=== PATIENT | female | born 1945 | race Caucasian/White ===

== ENCOUNTER 2021-09-03 09:28 | Emergency (ER) | payer OTHER, SELFPAY ==
--- NOTE | 2021-09-03 09:38 | ED.ANIMALBIT ---
HPI - Animal Bite General Chief Complaint: Animal Bite Stated Complaint: dog bite Time Seen by Provider: 09/03/21 09:38 Source: patient Mode of arrival: ambulatory Limitations: no limitations History of Present Illness HPI narrative: 76-year-old female presents with healing dog bites to bilateral hands. Patient has a new poodle puppy. States yesterday was biting on her hands and door open skin. Patient cleaned wounds and arrived with Band-Aids in place. No bleeding noted. No signs of infection. Range of motion and distal neurovascular intact. All systems reviewed and negative except as noted above. Related Data Home Medications Medication Instructions Recorded Confirmed atorvastatin 10 mg tablet 1 tablet PO DAILY 09/03/21 09/03/21 donepezil 5 mg tablet 1 tablet PO DAILY 09/03/21 09/03/21 ibandronate 150 mg tablet 1 tablet PO DAILY 09/03/21 09/03/21 metoprolol succinate 25 mg 1 tablet PO DAILY 09/03/21 09/03/21 tablet,extended release 24 hr Allergies Allergy/AdvReac Type Severity Reaction Status Date / Time celecoxib Allergy Severe HIVES Verified 09/03/21 09:42 POISON HARMEET Allergy Mild Rash Uncoded 09/03/21 09:42 Review of Systems Review of Systems: CONSTITUTIONAL: Denies fever, chills, or sweats. EYES: Denies visual changes, redness, or discharge. ENT: Denies rhinorrhea, congestion, sore throat, or otalgia. CARDIOVASCULAR: Denies chest pain, palpitations, or edema. RESPIRATORY: Denies cough or dyspnea. GASTROINTESTINAL: Denies abdominal pain, nausea, vomiting, or diarrhea. GENITOURINARY: Denies dysuria or hematuria. SKIN: Reports lacerations to both hands from dog bite. MUSCULOSKELETAL: Denies back pain, joint pain, or myalgia. NEUROLOGIC: Denies headache, numbness, or weakness. PSYCHIATRIC: Denies anxiety or depression. All other systems reviewed are negative, except as documented in HPI. PMFSH Comments At time of signature, agree with nursing past medical, surgical, social and family history. There is no relevant family history pertinent to the presenting complaint. Exam Narrative: GENERAL: This is a well-nourished, well-developed patient, in no apparent distress. HEAD: normocephalic, atraumatic. EYES: PERRL. Sclera clear/white. Vision is grossly intact. EARS: External ears normal NOSE: External nose normal NECK: Neck supple, non-tender without lymphadenopathy, masses or thyromegaly. CARDIOVASCULAR: Regular rate and rhythm without murmurs, gallops, or rubs. RESPIRATORY: Clear to auscultation. Breath sounds equal bilaterally. No wheezes, rales, or rhonchi. SKIN: warm, Dry, intact with no suspicious lesions or rash, good texture and turgor. 3 superficial lacerations to posterior aspect right hand. 2 superficial lacerations to left hand. Healing well. No signs of infection. NEURO: awake, alert, and oriented to person, place and time. There were no obvious focal neurologic abnormalities. EXTREMITIES: No joint tenderness, effusion, or edema noted. Course Course Level of Care: Express Care Visit Vital Signs Vital signs: Reviewed MDM - Animal Bite MDM Narrative Medical decision making narrative: Patient is aware of diagnosis, understands and agrees to treatment plan. Anticipatory guidance given. Patient agrees to follow-up as directed and is aware of reasons to seek care at the emergency department. Portions of this record may have been created with voice recognition software Differential Diagnosis Differential diagnosis: Likely dog bite Discharge Plan Discharge Clinical Impression: Dog bite of right hand without complication, Dog bite of left hand without complication Patient Disposition: Home, Self-Care Condition: Stable Instructions: Antibiotic Form, Animal Bite (ED) Additional Instructions: Take antibiotics as prescribed to prevent wound infection. Continue to wash wounds with soap and water. Pat dry. If you have redness, swelling, drainage, increasing pain follow-up w
[2021-09-03 09:40] VITALS: BP 153/83; PULSE 68; RESP 18; TEMP 36.6; O2SAT 100
[2021-09-03] MEDS: TETANUS/DIPHTHERIA TOXOIDS ADSORB 0.5 ML VIAL (*BKC) IM (10:00)
== END 2021-09-03 10:17 | disposition home or self-care (01) ==
PROVIDERS: Emergency Provider Nurse Practitioner Family; PCP Family Medicine
DX: S61.412A Laceration without foreign body of left hand, initial encounter (principal); S61.411A Laceration without foreign body of right hand, initial encounter; W54.0XXA Bitten by dog, initial encounter; Z23 Encounter for immunization; G30.9 Alzheimer's disease, unspecified; F02.80 Dementia in other diseases classified elsewhere, unspecified severity, without behavioral disturbance, psychotic disturbance, mood disturbance, and anxiety; E78.00 Pure hypercholesterolemia, unspecified; I10 Essential (primary) hypertension; M81.0 Age-related osteoporosis without current pathological fracture
CPT/HCPCS: 90471; 90714; 99213; G0463

== ENCOUNTER 2022-05-27 18:35 | Emergency (ER) | payer OTHER, SELFPAY ==
--- NOTE | ~2022-05-27 | CT_ITS ---
EXAMINATION: CT brain wo con DATE: 05/27/2022 19:38 INDICATION: fall . TECHNIQUE: Computed tomography (CT) of the head was performed with intravenous contrast. The mA was a djusted according to patient size. Iterative reconstruction technique was employed. The dose-length p roduct was 605.33 mGy-cm. COMPARISON: None. FINDINGS: No acute intracranial hemorrhage or extra-axial fluid collection. No hydrocephalus, mass, or herniation. No acute ischemic infarct. Unremarkable dural venous sinus attenuation. No acute osseous abnormality. Mild ethmoid mucosal thickening, the remaining aerated spaces are clear. Moderate atrophy and mild chronic white matter change. Small infarct/lacunar infarct in the right ins celso. Chronic bilateral basal ganglia lacunar infarcts. Atherosclerotic intracranial calcification. Bi lateral lens replacements. IMPRESSION: No acute intracranial process. Reviewed, dictated and finalized at location K.
--- NOTE | ~2022-05-27 | XR_ITS ---
EXAMINATION: XR chest 1V portable Exam Date/Time: 05/27/2022 21:20 CDT HISTORY: syncope Comparison: 10/06/2013; CT chest 08/09/2014. RESULT: Lines, tubes, and devices: None. Lungs and pleura: Biapical pleural scarring. Senescent and emphysematous change. Cardiomediastinal silhouette: Stable. Other: No acute osseous or upper abdominal finding. IMPRESSION: No acute cardiopulmonary process. Reviewed, dictated and finalized at location K.
[2022-05-27 19:11] VITALS: BP 145/82; PULSE 66; RESP 18; TEMP 36.7; O2SAT 98
--- NOTE | 2022-05-27 19:22 | ECG_ITS ---
Measurements Intervals [place] Rate: 67 P: 47 NV: 179 QRS: -15 QRSD: 118 T: 58 QT: 425 QTc: 449 Interpretive Statements SINUS RHYTHM INCOMPLETE RIGHT BUNDLE BRANCH BLOCK CANNOT RULE OUT SEPTAL INFARCT, AGE INDETERMINATE BASELINE ARTIFACT- I, II, III, AVR, AVL, AVF, V1-V2 ABNORMAL ECG NO PREVIOUS ECG AVAILABLE FOR COMPARISON Electronically Signed On 05-28-2022 6:24:51 CDT by Myke Palomino D.O.
[2022-05-27 21:30] LABS: Basophils Absolute Auto 0.1 K/mm3 (0.0-0.1); Basophils Percent Auto 1.3 % (0.2-1.2); Eosinophils Absolute Auto 0.2 K/mm3 (0-0.3); Eosinophils Percent Auto 2.9 % (0-4.4); Hematocrit 38.2 % (37.0-47.0); Hemoglobin 12.3 g/dL (12.0-15.0); Immature Granulocyte Absolute 0.02 K/mm3 (0.00-0.031); Immature Granulocyte Percent A 0.2 % (0-0.5); Lymphocytes Absolute Auto 2.24 K/mm3 (0.9-3.2); Lymphocytes Percent Auto 26.9 % (18.3-44.2); Mean Corpuscular HGB Conc 32.2 g/dl (32-36); Mean Corpuscular Hemoglobin 32.8 pg (26-34); Mean Corpuscular Volume 101.9 fl (80-100); Mean Platelet Volume 8.5 fl (7.4-10.4); Monocytes Absolute Auto 0.9 K/mm3 (0.1-0.6); Monocytes Percent Auto 11.2 % (2.6-8.5); Neutrophils Absolute Auto 4.8 K/mm3 (1.3-6.7); Neutrophils Percent Auto 57.5 % (45.5-73.1); Platelet Count Result 286 k/mm3 (150-375); Red Blood Count 3.75 M/mm3 (4.2-5.4); Red Cell Distribution Width 13.8 % (11.5-14.5); White Blood Count 8.3 K/mm3 (4.5-10.0)
[2022-05-27 21:41] LABS: Alanine Aminotransferase 26 U/L (6-35); Albumin Level 4.1 g/dL (3.5-5.1); Alkaline Phosphatase 53 U/L (38-126); Anion Gap 8 mmol/L (8-16); Aspartate Amino Transferase 34 U/L (14-36); Bilirubin,Total 0.5 mg/dL (0.2-1.3); Blood Urea Nitrogen 15 mg/dL (7-17); Carbon Dioxide 28 mmol/L (22-30); Chloride 105 mmol/L (98-107); Estimated CRCL calculation 43 ml/min; Estimated Glomerular Filt Rate > 60; Glucose 95 mg/dL (65-110); Magnesium 2.1 mg/dL (1.6-2.3); Potassium 4.3 mmol/L (3.4-5.0); Prothrombin Time 12.7 Seconds (11.1-14.7); Sodium 141 mmol/L (137-145)
[2022-05-27 21:49] LABS: NT Pro B Type Natriuretic Pept 380 pg/mL (19.9-100)
--- NOTE | 2022-05-27 21:57 | ED.DIZZY ---
HPI - Dizziness General Chief Complaint: Syncope Stated Complaint: fall/facial injury Time Seen by Provider: 05/27/22 21:04 Source: patient and family Mode of arrival: ambulatory Limitations: dementia History of Present Illness HPI Narrative: History is somewhat limited due to patient's dementia. She is presenting with family who is supplementing history. This is a 76-year-old female with PMH presents the ED with chief complaint of syncope occurring at 1730 this evening prior to arrival. Patient's family reports that she has had multiple episodes of fainting in the past. Reports that she had an ablation done 3 years ago and has been on metoprolol ever since. Reports no change in metoprolol dosing. Patient's family did witness this fall in the kitchen this evening. He states that she was walking to bring food to the sink and just collapsed. Patient tells me that she does not remember this event at all. She cannot give me any details about this incident. Family reports laceration to the left eyebrow. Patient denies any headache. Patient denies any chest pain or shortness of breath. Denies leg swelling, urinary symptoms. Related Data Home Medications Medication Instructions Recorded Confirmed atorvastatin 10 mg tablet 1 tablet PO DAILY 09/03/21 09/03/21 donepezil 5 mg tablet 1 tablet PO DAILY 09/03/21 09/03/21 ibandronate 150 mg tablet 1 tablet PO DAILY 09/03/21 09/03/21 metoprolol succinate 25 mg 1 tablet PO DAILY 09/03/21 09/03/21 tablet,extended release 24 hr Allergies Allergy/AdvReac Type Severity Reaction Status Date / Time celecoxib Allergy Severe HIVES Verified 09/03/21 09:42 POISON HARMEET Allergy Mild Rash Uncoded 09/03/21 09:42 Review of Systems Review of Systems: ROS unobtainable: Yes unobtainable due to medical condition (Dementia) Exam Narrative: GENERAL: Well-appearing, well-nourished, and in no acute distress. HEAD: Normocephalic, atraumatic. EYES: PERRLA and EOMI. ENT: Nares clear, no rhinorrhea or epistaxis. Mucous membranes moist. Oropharynx without tonsillar hypertrophy exudate or other lesions. NECK: Supple. No adenopathy or masses. CHEST: No respiratory distress. Clear to auscultation. No wheezes rales or rhonchi HEART: Regular rate and rhythm. No murmur heard. Normal peripheral pulses. ABDOMEN: Soft, nontender, nondistended, normal active bowel sounds. EXTREMITIES: MSK exam is largely benign. There is no tenderness throughout the extremities. No evidence of trauma. Normal range of motion. No edema. SKIN: There is a 2 cm skin laceration to the left eyebrow. Bleeding controlled. Warm, dry, no rash. No significant ecchymosis in the head or face. NEURO: Alert and oriented x3. No focal deficits. Cranial nerves II through XII intact. Coordination intact. Negative pronator drift. PSYCH: Normal mood and affect. Course Course Emergency Course: wells score 0 2230: Discussed case with Dr. Tidwell(hospitalist) who feels that this patient is safe to go home as long as she can ambulate on her own without presyncopal symptoms. Vital Signs Vital signs: Vital Signs Temperature 98.0 F 05/27/22 19:11 Pulse Rate 66 05/27/22 19:11 Respiratory Rate 18 05/27/22 19:11 Blood Pressure 145/82 H 05/27/22 19:11 Pulse Oximetry 98 05/27/22 19:11 Oxygen Delivery Room Air 05/27/22 19:11 Temperature 98 F 05/27/22 23:48 Pulse Rate 90 05/27/22 23:48 Respiratory Rate 18 05/27/22 23:48 Blood Pressure 131/69 05/27/22 23:48 Pulse Oximetry 99 05/27/22 23:48 Oxygen Delivery Room Air 05/27/22 19:11 Procedures Laceration Laceration 1: Date: 05/27/22 Time: 23:31 Site: face Side (If applicable): left (superior to eyebrow) Size (cm): 2 Description: linear Depth: simple, single layer Local Anesthetic: lidocaine 1% and with epi Amount of anesthesia used (mL): 3 Pre-repair: wound explored, irrigated extensiv
[2022-05-27] MEDS: SODIUM CHLORIDE 0.9% IV 1,000 ML 999 ML IV CONT (22:07)
[2022-05-27] MEDS: LIDO 1%/EPINEPHRINE 1:100,000 20 ML VIAL 10 ML INFILTRATE (22:08)
[2022-05-27 22:34] VITALS: BP 132/82; PULSE 70
[2022-05-27 22:35] VITALS: BP 154/68; PULSE 63
[2022-05-27 22:36] VITALS: BP 154/80; PULSE 77
[2022-05-27 23:31] LABS: Troponin I < 0.012 ng/mL (0.000-0.034)
[2022-05-27 23:48] VITALS: BP 131/69; PULSE 90; RESP 18; TEMP 36.6; O2SAT 99
== END 2022-05-27 23:48 | disposition home or self-care (01) ==
PROVIDERS: Emergency Provider Physician Assistant; PCP Family Medicine
DX: R55 Syncope and collapse (principal); S01.81XA Laceration without foreign body of other part of head, initial encounter; G30.9 Alzheimer's disease, unspecified; F02.80 Dementia in other diseases classified elsewhere, unspecified severity, without behavioral disturbance, psychotic disturbance, mood disturbance, and anxiety; W19.XXXA Unspecified fall, initial encounter
CPT/HCPCS: 12011; 36415; 70450; 71045; 80053; 83735; 83880; 84484; 85025; 85610; 93005; 96360; 96361; 99284; J7030

== ENCOUNTER 2023-08-09 15:46 | Emergency (ER) | payer OTHER, SELFPAY ==
--- NOTE | ~2023-08-09 | XR_ITS ---
EXAM: XR hip RT 2V w AP pelvis DATE: 08/09/2023 18:12 HISTORY: R buttock pain . COMPARISON: None available. FINDINGS: Decreased mineralization. No fracture or dislocation. No lytic or blastic lesion. Mild jamil ateral hip osteoarthritis. Lumbar degenerative disc disease. Surgical clips over the left inguinal re gion. No erosion or periosteal change. Arterial vascular calcifications. IMPRESSION: No acute osseous finding in the pelvis or right hip. Reviewed, dictated and finalized at location K.
--- NOTE | ~2023-08-09 | CT_ITS ---
EXAMINATION: CT brain wo con DATE: 08/09/2023 16:46 INDICATION: Head injury. TECHNIQUE: Computed tomography (CT) of the head was performed without intravenous contrast. The mA wa s adjusted according to patient size. Iterative reconstruction technique was employed. The dose-lengt h product was 681.00 mGy-cm. COMPARISON: Head CT 05/27/2022 FINDINGS: There are old infarcts in the bilateral basal ganglia. There is no intracranial hemorrhage, acute infarction, or abnormal intracranial mass lesion. The ventricles are normal in size. There are likely changes of ocular lens replacement surgeries. There is mucosal thickening in the paranasal si nuses. The mastoid air cells are normal. There are scalp skin hiren. IMPRESSION: 1. Old infarcts in the bilateral basal ganglia. Reviewed, dictated and finalized at location A.
--- NOTE | ~2023-08-09 | CT_ITS ---
EXAMINATION: CT cervical spine wo con DATE: 08/09/2023 16:46 INDICATION: Head injury. TECHNIQUE: Computed tomography (CT) of the cervical spine was performed without intravenous contrast. Automated exposure control and iterative reconstruction technique were employed. The dose-length pro duct was 106.90 mGy-cm. COMPARISON: None FINDINGS: There is scarring at the lung apices. There is 7 degrees levocurvature of cervical spine. T here is kyphosis of cervical spine. There is 2 mm anterolisthesis of C3 on C4. Vertebral body heights are normal. There is mildly decreased disc height at C2-C3, C3-C4, and C4-C5 and severely decreased disc height at C5-C6 and C6-C7. The following disc levels are specifically discussed: C2-C3: There is no uncovertebral joint osteoarthritis. There is severe right and mild left facet join t osteoarthritis. There is mild right neural foraminal stenosis. There is no central canal stenosis. C3-C4: There is no uncovertebral joint osteoarthritis. There is severe right and mild left facet join t osteoarthritis. There is mild right neural foraminal stenosis. There is no central canal stenosis. C4-C5: There is mild bilateral uncovertebral joint osteoarthritis. There is mild bilateral facet join t osteoarthritis. There is no neural foraminal stenosis. There is no central canal stenosis. C5-C6: There is moderate right and severe left uncovertebral joint osteoarthritis. There is severe ri ght and moderate left facet joint osteoarthritis. There is moderate left neural foraminal stenosis. T here is mild central canal stenosis. C6-C7: There is severe bilateral uncovertebral joint osteoarthritis. There is moderate bilateral face t joint osteoarthritis. There is mild bilateral neural foraminal stenosis. There is mild central baudilio l stenosis. C7-T1: There is mild left uncovertebral joint osteoarthritis. There is mild right and moderate left f acet joint osteoarthritis. There is mild left neural foraminal stenosis. There is no central canal st enosis. IMPRESSION: 1. No fracture. 2. Severe cervical spondylosis. Reviewed, dictated and finalized at location A.
--- NOTE | ~2023-08-09 | XR_ITS ---
EXAM: XR elbow RT min 3V DATE: 08/09/2023 18:12 HISTORY: fall OUT OF BED THIS MORNING . COMPARISON: None available. FINDINGS: Normal mineralization. No fracture or dislocation. No lytic or blastic lesion. Joint space s are maintained. No erosion or periosteal change. Soft tissues within normal limits. IMPRESSION: No acute osseous finding in the right elbow. Reviewed, dictated and finalized at location K.
[2023-08-09 15:51] VITALS: BP 143/72; PULSE 78; RESP 17; TEMP 36.5; O2SAT 99
--- NOTE | 2023-08-09 16:05 | ECG_ITS ---
[facility] [address] Test Date: 2023-08-09 Pat Name: Dottie Bryant Department: Room: Gender: F [employer] Technician: : [id number] Requested By: Theodora Padilla Order Number: [id number] Reading MD: Carlita Naik M.D. Measurements Intervals [place] Rate: 69 P: 62 ID: 159 QRS: -18 QRSD: 110 T: 81 QT: 394 QTc: 425 Interpretive Statements SINUS RHYTHM LEFT VENTRICULAR HYPERTROPHY AND ST-T CHANGE [VOLTAGE CRITERIA PLUS ST/T ABNORMALITY] No previous ECG available for comparison Electronically Signed On 08-10-2023 14:15:07 CDT by Carlita Naik M.D.
--- NOTE | 2023-08-09 16:16 | ED.HEATRA ---
HPI - Head Injury General Chief complaint: Head Injury <JORDI Claudio Last Filed: 08/09/23 16:19> Stated complaint: fell from bed, head injury <JORDI Claudio Last Filed: 08/09/23 16:19> Time Seen by Provider: 08/09/23 16:10 <JORDI Claudio Last Filed: 08/09/23 16:19> Focused HPI: patient is a 78-year-old female, with past medical history of dementia, who presents the ED with report of a fall/head injury. at bedside assisted in providing information. Reports he found patient fallen on the side of the bed with her head partially underneath of a wooden chest. Patient sustained a laceration to her posterior scalp. presented here for further evaluation. She is unsure how the fall occurred. She is unsure if she lost consciousness. Denies feeling dizzy or lightheaded currently. Denies vision changes. Denies chest pain, shortness breath, neck or back pain, numbness. Patient takes aspirin 81 mg daily. Tetanus up-to-date as of 2021. GENERAL: Elderly, frail, thin, and in no acute distress. HEAD: Normocephalic. Approx 7cm laceration to posterior scalp, mildly gaping, minimal active bleeding. NECK: No midline spinal tenderness. CHEST: Clear to auscultation. ?No respiratory distress. HEART: Regular rate and rhythm.? MSK: No tenderness throughout thoracic or lumbar midline spine. NEURO: ?Alert and oriented x3. Patient screened in triage and initial orders placed.? ?Additional care and disposition to be based upon?diagnostic testing and treatment. <JORDI Claudio Last Filed: 08/09/23 16:19> Source: patient and family <JORDI Claudio Last Filed: 08/09/23 16:19> Mode of arrival: ambulatory <JORDI Claudio Last Filed: 08/09/23 16:19> Limitations: dementia <JORDI Claudio Last Filed: 08/09/23 16:19> History of Present Illness HPI Narrative: Agree with the above triage note. Patient is also endorsing some elbow pain from the fall with overlying abrasions and pain to the right posterior buttock from the fall as well. She denies other injuries. Patient's at bedside states he was in the other room of the patient was taking a nap this afternoon when he heard a crash and found the patient fall and outside of the bed with her head underneath the wooden chest. The patient states she otherwise feels at her baseline. She denies chest pain or shortness of breath, cough or congestion, fever, abdominal pain, N/V/D, lightheadedness, headache, vision changes, focal numbness or weakness. at bedside states the patient is at her normal mental status which is A&O times 2-3. Nine hiren were placed to the scalp laceration in triage with good approximation. <Kanwal Zuleta PA-C - Last Filed: 08/09/23 18:42> Related Data Home medications: Home Medications Medication Instructions Recorded Confirmed atorvastatin 10 mg tablet 1 tablet PO DAILY 09/03/21 09/03/21 donepezil 5 mg tablet 1 tablet PO DAILY 09/03/21 09/03/21 ibandronate 150 mg tablet 1 tablet PO DAILY 09/03/21 09/03/21 metoprolol succinate 25 mg 1 tablet PO DAILY 09/03/21 09/03/21 tablet,extended release 24 hr <Theodora Dykes PA-C - Last Filed: 08/09/23 16:19> Allergies/Adverse reactions: Allergies Allergy/AdvReac Type Severity Reaction Status Date / Time celecoxib Allergy Severe HIVES Verified 09/03/21 09:42 POISON HARMEET Allergy Mild Rash Uncoded 09/03/21 09:42 <Theodora Dykes PA-C - Last Filed: 08/09/23 16:19> Review of Systems Review of Systems: CONSTITUTIONAL: Denies fever, chills, or sweats. EYES: Denies visual changes, redness, or discharge. ENT: Denies rhinorrhea, congestion, sore throat, or otalgia. CARDIOVASCULAR: Denies chest pain, palpitations, or edema. RESPIRATORY: Denies cough or dyspnea. GASTROINTESTINAL: Denies abdominal pain, nausea, vomiting, or diarrhea. GENITOURINARY: Denies
[2023-08-09 16:36] LABS: Basophils Absolute Auto 0.1 K/mm3 (0.0-0.1); Basophils Percent Auto 1.1 % (0.2-1.2); Eosinophils Absolute Auto 0.4 K/mm3 (0-0.3); Eosinophils Percent Auto 5.1 % (0-4.4); Hematocrit 42.7 % (37.0-47.0); Hemoglobin 13.9 g/dL (12.0-15.0); Immature Granulocyte Absolute 0.02 K/mm3 (0.00-0.031); Immature Granulocyte Percent A 0.3 % (0-0.5); Lymphocytes Absolute Auto 2.54 K/mm3 (0.9-3.2); Lymphocytes Percent Auto 36.1 % (18.3-44.2); Mean Corpuscular HGB Conc 32.6 g/dl (32-36); Mean Corpuscular Hemoglobin 32.8 pg (26-34); Mean Corpuscular Volume 100.7 fl (80-100); Mean Platelet Volume 8.7 fl (7.4-10.4); Monocytes Absolute Auto 0.7 K/mm3 (0.1-0.6); Monocytes Percent Auto 10.5 % (2.6-8.5); Neutrophils Absolute Auto 3.3 K/mm3 (1.3-6.7); Neutrophils Percent Auto 46.9 % (45.5-73.1); Platelet Count Result 286 k/mm3 (150-375); Red Blood Count 4.24 M/mm3 (4.2-5.4); Red Cell Distribution Width 13.5 % (11.5-14.5)
[2023-08-09 16:46] LABS: Alanine Aminotransferase 26 U/L (6-35); Albumin Level 4.3 g/dL (3.5-5.1); Alkaline Phosphatase 56 U/L (38-126); Anion Gap 10 mmol/L (4-12); Aspartate Amino Transferase 32 U/L (14-36); Bilirubin,Total 0.5 mg/dL (0.2-1.3); Blood Urea Nitrogen 11 mg/dL (7-17); Calcium 9.6 mg/dL (8.4-10.2); Carbon Dioxide 25 mmol/L (22-30); Chloride 103 mmol/L (98-107); Estimated CRCL calculation 32 ml/min; Estimated Glomerular Filt Rate > 60; Glucose 110 mg/dL (65-110); Potassium 3.7 mmol/L (3.4-5.0); Sodium 138 mmol/L (137-145)
[2023-08-09 16:57] LABS: Troponin I < 0.012 ng/mL (0.000-0.034)
[2023-08-09 17:15] VITALS: BP 154/82; PULSE 82; RESP 18; O2SAT 100
[2023-08-09 17:35] LABS: Appearance Urine Clear (Clear); Bacteria Urine 3+ /hpf; Bilirubin Urine Negative (Negative); Blood Urine Negative (Negative); Color Urine Yellow (Yellow); Glucose Urine UA Negative (Negative); Ketones Urine Negative (Negative); Leukocyte Esterase Ur 1+ LEU/UL (Negative); Nitrate Urine Negative (Negative); Protein Urine Negative (Negative); RBC Urine 0-2 /hpf (0-2); Specific Grav Ur 1.013 (1.001-1.035); Squamous Epithelial Cell Urine None Seen /hpf (Few); Urobilinogen Urine 0.2 mg/dL (<2.0)
[2023-08-09 17:38] LABS: Add Urine Microscopic? YES
[2023-08-09] MEDS: CEPHALEXIN 500 MG CAPSULE PO (18:55)
== END 2023-08-09 18:59 | disposition home or self-care (01) ==
PROVIDERS: Physician Assistant; Emergency Provider Physician Assistant; PCP Family Medicine
DX: S01.01XA Laceration without foreign body of scalp, initial encounter (principal); S50.311A Abrasion of right elbow, initial encounter; F03.90 Unspecified dementia, unspecified severity, without behavioral disturbance, psychotic disturbance, mood disturbance, and anxiety; Z79.82 Long term (current) use of aspirin; Z79.899 Other long term (current) drug therapy; I51.7 Cardiomegaly; M47.812 Spondylosis without myelopathy or radiculopathy, cervical region; R82.998 Other abnormal findings in urine; W06.XXXA Fall from bed, initial encounter
CPT/HCPCS: 12002; 36415; 70450; 72125; 73080; 73501; 73502; 80053; 81001; 84484; 85025; 87077; 87086; 87088; 87181; 93005; 99284; A9270

== ENCOUNTER 2023-09-18 19:22 | Emergency (ER) | payer OTHER, SELFPAY ==
--- NOTE | ~2023-09-18 | CT_ITS ---
CT head without contrast Indication: Head injury COMPARISON: 08/09/2023 Technique: Serial scans were obtained through the brain without the administration of contrast. Dose reduction technique was used on this scan by utilizing automated exposure control and iterative recon struction technique. The dose-length product (DLP) was 605.33 mGy-cm. Findings: There is no evidence of intracranial hemorrhage, mass lesion, or acute infarct. The ventri cles and subarachnoid spaces are dilated, consistent with moderate atrophy. Low attenuation regions are seen within the periventricular white matter bilaterally, likely representing changes from chroni c microvascular ischemic disease. There is no evidence of edema, mass effect or midline shift. The visualized paranasal sinuses and mastoid air cells are clear. Impression: No intracranial hemorrhage, mass, or acute infarct. Atrophy and chronic white matter changes, as above. Reviewed, dictated and finalized at location . Impression: No intracranial hemorrhage, mass, or acute infarct. Atrophy and chronic white matter changes, as above.
--- NOTE | ~2023-09-18 | CT_ITS ---
Noncontrast CT scan of the cervical spine Technique: Multiple contiguous axial [address] images of the cervical spine were obtained and rec onstructed in 2D sagittal and coronal planes on the acquisition scanner. Dose reduction technique was used on this scan by utilizing automated exposure control, adjustment of the mA and/or kV according to patient size. The dose-length product (DLP) was 605.33 mGy-cm. Clinical History: Pain COMPARISON: 08/09/2023 Findings: No acute fracture or acute subluxation. Stable reversal normal cervical lordosis. Stable gr ashlyn 1 anterolisthesis of C2 over C3, and of C3 over C4. Stable advanced degenerative disc narrowing a t C5-C6 and C6-C7. Stable facet joint degenerative changes, especially the upper, right side of the c ervical spine. There is left neural foraminal narrowing at C5-C6. There is probable bilateral neural foraminal narrowing at C6-C7. No prevertebral soft tissue swelling. Impression: No acute abnormality. Stable degenerative spondylosis, as well as grade 1 anterolisthesis of C2 over C3 and of C3 over C4. Reviewed, dictated and finalized at [facility]. Impression: No acute abnormality. Stable degenerative spondylosis, as well as grade 1 anterolisthesis of C2 over C3 and of C3 over C4.
[2023-09-18 19:26] VITALS: BP 136/88; PULSE 74; RESP 18; TEMP 36.5; O2SAT 97
[2023-09-18 20:07] VITALS: BP 127/77; PULSE 67; RESP 15; O2SAT 96
--- NOTE | 2023-09-18 20:19 | ED.FALL ---
HPI - Fall General Chief Complaint: Fall Stated Complaint: fall, head laceration Time Seen by Provider: 09/18/23 20:03 History of Present Illness HPI Narrative: 78-year-old female with history of dementia presents to emergency department with her at bedside for a ground level fall and head injury. Patient is demented and unable to provide much history. Patient's states he was in the other room when he heard the patient scream. States she range her side and found her laying on the ground in the living room. It appeared she had hit her head. He did not witness any loss of consciousness. Patient has complained of some pain to the back her head, otherwise has been acting normal. She denies neck pain or back pain, extremity injury, other injuries acquired. Patient's states that she is at her baseline mental status. Tdap is up-to-date. Related Data Home Medications Medication Instructions Recorded Confirmed atorvastatin 10 mg tablet 1 tablet PO DAILY 09/03/21 09/03/21 donepezil 5 mg tablet 1 tablet PO DAILY 09/03/21 09/03/21 ibandronate 150 mg tablet 1 tablet PO DAILY 09/03/21 09/03/21 metoprolol succinate 25 mg 1 tablet PO DAILY 09/03/21 09/03/21 tablet,extended release 24 hr Allergies Allergy/AdvReac Type Severity Reaction Status Date / Time celecoxib Allergy Severe HIVES Verified 09/18/23 19:28 POISON HARMEET Allergy Mild Rash Uncoded 09/18/23 19:28 Review of Systems Review of Systems: All systems reviewed & are unremarkable except as noted in HPI and below Exam Narrative: GENERAL: Well-appearing, well-nourished, and in no acute distress. HEAD: Normocephalic, atraumatic. EYES: PERRLA and EOMI. ENT: Nares clear, no rhinorrhea or epistaxis. Mucous membranes moist. NECK: Supple. CHEST: Clear to auscultation. No respiratory distress. HEART: Regular rate and rhythm. No murmur heard. Normal peripheral pulses. ABDOMEN: Soft, nontender, nondistended, normal active bowel sounds. EXTREMITIES: Normal range of motion. No edema. No tenderness upper lower extremities. Full range of motion of all extremities. SKIN: Less than 1 cm linear superficial laceration to the occiput put, bleeding controlled. Minimal surrounding hematoma. No crepitus, step-offs or deformities. No deep structures or foreign bodies visualized. NEURO: No focal deficits. Alert and oriented x2 . Moving all extremities spontaneously. Cranial nerves 2-12 intact. Course Vital Signs Vital signs: Vital Signs Temperature 97.7 F 09/18/23 19:26 Pulse Rate 74 09/18/23 19:26 Respiratory Rate 18 09/18/23 19:26 Blood Pressure 136/88 09/18/23 19:26 Pulse Oximetry 97 09/18/23 19:26 Oxygen Delivery Room Air 09/18/23 19:26 Temperature 97.7 F 09/18/23 19:26 Pulse Rate 67 09/18/23 20:07 Respiratory Rate 15 09/18/23 20:07 Blood Pressure 127/77 09/18/23 20:07 Pulse Oximetry 96 09/18/23 20:07 Oxygen Delivery Room Air 09/18/23 19:26 Procedures Laceration Laceration 1: Date: 09/18/23 Time: 20:22 Site: scalp Size (cm): 1 Description: linear Depth: simple, single layer Pre-repair: wound explored and irrigated ====== Skin Level ====== Skin layer closed with: hiren Number of sutures: 1 ====== Subcutaneous Layer ====== ====== Muscle Layer ====== ====== Tendon Layer ====== MDM - Fall MDM Narrative Medical decision making narrative: 78-year-old female presents the emergency department with at bedside for an unwitnessed ground level fall. Triage vitals stable. Exam is significant for small superficial laceration to the occiputs which was cleaned by nursing staff and closed with 1 staple without complications. Patient has no complaints other than pain to the region of the laceration. She is neurovascularly intact. CT brain and cervical spine show no acute findings. She will be discharged victorino
[2023-09-18 20:26] VITALS: BP 125/70; PULSE 69; RESP 20; O2SAT 97
== END 2023-09-18 20:30 | disposition home or self-care (01) ==
PROVIDERS: Emergency Provider Physician Assistant; PCP Family Medicine
DX: S01.01XA Laceration without foreign body of scalp, initial encounter (principal); F03.90 Unspecified dementia, unspecified severity, without behavioral disturbance, psychotic disturbance, mood disturbance, and anxiety; W18.30XA Fall on same level, unspecified, initial encounter
CPT/HCPCS: 12001; 70450; 72125; 99284

== ENCOUNTER 2024-03-11 14:39 | Emergency (ER) | payer OTHER, SELFPAY ==
--- NOTE | ~2024-03-11 | CT_ITS ---
CT abdomen pelvis w con Ordering provider: Ricki Carlos MD History: 78 years Female with . abdominal pain . Comparison: None. Technique: CT abdomen and pelvis with IV and without oral contrast. Automated exposure control and it erative reconstruction technique were employed. The dose-length product was 185.46 mGy-cm. 100 mL Omn ipaque 350 was given IV. Findings: VISUALIZED LOWER CHEST: Pneumonia in the right lower lobe is seen posteriorly. UPPER ABDOMINAL ORGANS: Liver: Normal. Gallbladder: Normal. Spleen: Normal. Stomach/duodenum: Normal. Pancreas: Normal. Adrenals: Normal. Kidneys: Fullness in the right renal pelvis which may be due to extrarenal position. PELVIC ORGANS: The bladder is normal. BOWEL AND MESENTERY: Colon: No evidence of diverticulitis. Fecal material is loaded in the colon.Appendix is not demonstra krys. Small Bowel: Normal. No obstruction. Peritoneum/mesentery: No free air or free fluid. No mesenteric lymphadenopathy. RETROPERITONEUM: Mild atheromatous disease of the abdominal aorta. No retroperitoneal lymphadenopat hy. MUSCULOSKELETAL: Superficial soft tissues: The superficial soft tissues are normal. Bones: Age appropriate degenerative changes of the spine. Spondylolisthesis at the level of L4-L5. IMPRESSION: 1. No evidence of ascites, diverticulitis or intestinal obstruction. 2. Constipation. 3. Fullness of the right renal pelvis most likely due to extrarenal position. Reviewed, dictated and finalized at location A. 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
[2024-03-11 15:15] VITALS: BP 104/69; PULSE 91; RESP 18; TEMP 37; O2SAT 97
--- NOTE | 2024-03-11 19:23 | ECG_ITS ---
Test Date: 2024-03-11 20:16:08 Measurements Intervals [place] Rate: 77 P: 53 NM: 161 QRS: -18 QRSD: 109 T: 63 QT: 394 QTc: 447 Interpretive Statements SINUS RHYTHM VOLTAGE CRITERIA FOR LVH [MEETS CRITERIA IN ONE OF: R(aVL), S(V1), R(V5), R(V5/V6)+S(V1)] POSSIBLE SEPTAL MYOCARDIAL INFARCTION , PROBABLY OLD [30 ms Q WAVE IN V1/V2] Compared to ECG 08/09/2023 16:26:39 Myocardial infarct finding now present Electronically Signed On 03-15-2024 15:57:46 BAKERY TECHNICIAN by Carlita Naik M.D.
[2024-03-11 20:48] LABS: Basophils Absolute Auto 0.1 K/mm3 (0.0-0.1); Basophils Percent Auto 0.9 % (0.2-1.2); Eosinophils Absolute Auto 0.2 K/mm3 (0-0.3); Eosinophils Percent Auto 1.5 % (0-4.4); Hematocrit 38.6 % (37.0-47.0); Hemoglobin 12.6 g/dL (12.0-15.0); Immature Granulocyte Absolute 0.05 K/mm3 (0.00-0.031); Immature Granulocyte Percent A 0.5 % (0-0.5); Lymphocytes Absolute Auto 2.06 K/mm3 (0.9-3.2); Lymphocytes Percent Auto 20.1 % (18.3-44.2); Mean Corpuscular HGB Conc 32.6 g/dl (32-36); Mean Corpuscular Hemoglobin 31.8 pg (26-34); Mean Corpuscular Volume 97.5 fl (80-100); Monocytes Absolute Auto 1.3 K/mm3 (0.1-0.6); Monocytes Percent Auto 12.8 % (2.6-8.5); Neutrophils Absolute Auto 6.6 K/mm3 (1.3-6.7); Neutrophils Percent Auto 64.2 % (45.5-73.1); Platelet Count Result 275 k/mm3 (150-375); Red Blood Count 3.96 M/mm3 (4.2-5.4); Red Cell Distribution Width 13.2 % (11.5-14.5); White Blood Count 10.3 K/mm3 (4.5-10.0)
[2024-03-11 21:01] LABS: Alanine Aminotransferase 23 U/L (6-35); Albumin Level 3.8 g/dL (3.5-5.1); Alkaline Phosphatase 76 U/L (38-126); Anion Gap 3 mmol/L (4-12); Aspartate Amino Transferase 32 U/L (14-36); Blood Urea Nitrogen 14 mg/dL (7-17); Carbon Dioxide 30 mmol/L (22-30); Chloride 102 mmol/L (98-107); Estimated Glomerular Filt Rate > 60; Glucose 99 mg/dL (65-110); Lipase 43 U/L (23-300); Potassium 3.7 mmol/L (3.4-5.0); Sodium 135 mmol/L (137-145)
[2024-03-11 21:02] LABS: Lactic Acid Reflex 1.7 mmol/L (0.7-2.0)
[2024-03-11 21:05] VITALS: BP 139/61; PULSE 82; RESP 18; O2SAT 100
[2024-03-11 21:51] LABS: Troponin I < 0.012 ng/mL (0.000-0.034)
--- NOTE | 2024-03-11 22:00 | ED_ITS ---
HPI - General Adult General Chief complaint: Abdominal Pain Stated complaint: abd pain Time Seen by Provider: 03/11/24 19:14 History of Present Illness HPI narrative: patient is a 78-year-old female who presents emergency department with chief complaint of abdominal pain. Patient reports that started having discomfort in her abdomen on the right side the family reports that she has history of dementia and pain has improved since she has arrived here in the emergency department. Patient denies fever denies dysuria denies vomiting or diarrhea. Related Data Home Medications ?Medication ?Instructions ?Recorded ?Confirmed ?Last Taken ?Type atorvastatin 10 mg tablet 1 tablet PO DAILY 09/03/21 09/03/21 Unknown History donepezil 5 mg tablet 1 tablet PO DAILY 09/03/21 09/03/21 Unknown History ibandronate 150 mg tablet 1 tablet PO DAILY 09/03/21 09/03/21 Unknown History metoprolol succinate 25 mg 1 tablet PO DAILY 09/03/21 09/03/21 Unknown History tablet,extended release 24 hr Allergies Allergy/AdvReac Type Severity Reaction Status Date / Time celecoxib Allergy Severe HIVES Verified 09/18/23 19:28 POISON HARMEET Allergy Mild Rash Uncoded 09/18/23 19:28 Review of Systems 2 Review of Systems: A 10 system review of systems was completed on the patient and is negative except for what is stated in the HPI. Nursing and ancillary documentation was reviewed. Exam 2 Narrative: GENERAL: Well-appearing, well-nourished, and in no acute distress. HEAD: Normocephalic, atraumatic. EYES: PERRLA and EOMI. ENT: Nares clear, no rhinorrhea or epistaxis. Mucous membranes moist. NECK: Supple. CHEST: Clear to auscultation. No respiratory distress. HEART: Regular rate and rhythm. No murmur heard. Normal peripheral pulses. ABDOMEN: Soft, nontender, nondistended, normal active bowel sounds. EXTREMITIES: Normal range of motion. No edema. SKIN: Warm, dry, no rash. NEURO: No focal deficits. Alert and oriented x3. PSYCH: Normal mood and affect. Course Vital Signs Vital signs: Vital Signs Temperature 37.0 C 03/11/24 15:15 Pulse Rate 91 03/11/24 15:15 Respiratory Rate 18 03/11/24 15:15 Blood Pressure 104/69 03/11/24 15:15 Pulse Oximetry 97 03/11/24 15:15 Temperature 37.0 C 03/11/24 15:15 Pulse Rate 75 03/11/24 22:55 Respiratory Rate 18 03/11/24 22:55 Blood Pressure 131/83 03/11/24 22:55 Pulse Oximetry 100 03/11/24 22:55 Medical Decision Making MDM Narrative Medical decision making narrative: differential diagnosis includes intra-abdominal infection, UTI, laboratory studies were obtained on the patient showed normal CBC normal CMP urinalysis showed 1+ leukocyte esterase 11-[address] scan of the abdomen pelvis showed evidence of constipation but no other acute abnormality. Patient was started on MiraLax and also given a prescription for Keflex. Vital Signs Vital Signs: Vital Signs Temperature 37.0 C 03/11/24 15:15 Pulse Rate 91 03/11/24 15:15 Respiratory Rate 18 03/11/24 15:15 Blood Pressure 104/69 03/11/24 15:15 Pulse Oximetry 97 03/11/24 15:15 Temperature 37.0 C 03/11/24 15:15 Pulse Rate 75 03/11/24 22:55 Respiratory Rate 18 03/11/24 22:55 Blood Pressure 131/83 03/11/24 22:55 Pulse Oximetry 100 03/11/24 22:55 Lab Data 03/11/24 20:31 03/11/24 20:31 Labs: Lab Results 03/11/24 03/11/24 Range/Units 20:31 22:09 WBC 10.3 H (4.5-10.0) K/mm3 RBC 3.96 L (4.2-5.4) M/mm3 Hgb 12.6 (12.0-15.0) g/dL Hct 38.6 (37.0-47.0) % MCV 97.5 (80-100) fl MCH 31.8 (26-34) pg MCHC 32.6 (32-36) g/dl RDW 13.2 (11.5-14.5) % Plt Count 275 (150-375) k/mm3 MPV 9.0 (7.4-10.4) fl Immature Gran % (Auto) 0.5 (0-0.5) % Neut % (Auto) 64.2 (45.5-73.1) % Lymph % (Auto) 20.1 (18.3-44.2) % Christian % (Auto) 12.8 H (2.6-8.5) % Eos % (Auto) 1.5 (0-4.4) % Baso % (Auto) 0.9 (0.2-1.2) % Lymph # (Auto) 2.06 (0.9-3.2) K/mm3 Christian # (Auto) 1.3 H (0.1-0.6) K/mm3 Eos # (Auto) 0.2 (0-0.3) K/mm3 Baso # (Auto) 0.1 (0.0-0.1) K/mm3 Abs Immat Gran (auto) 0.05 H (0.00-0.031) K/mm3 Absolute Neuts (auto) 6.6 (1.3-6.7) K/mm3 Absolute Nucleated RBC 0.000 (0.0-0.012) K/mm3 Nucleated RBC % 0.0 (0.0-0.2) % Sodium 135 L (137-145) mmol/L Potassium 3.7 (3.4-5.0) mmol/L Chloride 102 (98-107) mmol/L Carbon Dioxide 30 (22-30) mmol/L Anion Gap 3 L (4-12) mmol/L BUN 14 (7-17) mg/dL Creatinine 0.80 (0.7-1.0) mg/dL Estim Creat Clear Calc Not Reportable Estimated GFR > 60 (59 - ) Glucose 99 (65-110) mg/dL Lactic Acid 1.7 (0.7-2.0) mmol/L Calcium 9.0 (8.4-10.2) mg/dL Magnesium 2.0 (1.6-2.3) mg/dL Total Bilirubin 1.0 (0.2-1.3) mg/dL AST 32 (14-36) U/L ALT 23 (6-35) U/L Alkaline Phosphatase 76 (38-126) U/L Troponin I < 0.012 (0.000-0.034) ng/mL Total Protein 7.0 (6.3-8.2) g/dL Albumin 3.8 (3.5-5.1) g/dL Lipase 43 (23-300) U/L Procalcitonin Pending Urine Color Yellow (Yellow) Urine Appearance Clear (Clear) Urine pH 6.0 (5.0-9.0) Ur Specific [place] > 1.045 H (1.001-1.035) Urine Protein Trace (Negative) mg/dL Urine Glucose (UA) Negative (Negative) mg/dL Urine Ketones Negative (Negative) mg/dL Ur Blood (Man) Negative (Negative) Urine Nitrate Negative (Negative) Urine Bilirubin Negative (Negative) Urine Urobilinogen 1.0 (<2.0) mg/dL Leukocyte Esterase Rfl 1+ H (Negative) SANTY/UL Urine RBC 0-2 (0-2) /hpf Urine WBC 11-20 H (0-3) /hpf Ur Squamous Epith Cells None seen (Few) /hpf Urine Bacteria None seen /hpf Urine Casts 0-2 Discharge Plan Discharge Clinical Impression: Abdominal pain, Constipation, Acute UTI Patient Disposition: Home, Self-Care Condition: Stable Instructions: Antibiotic Form, Constipation (ED), Urinary Tract Infection in Women (ED), Abdominal Pain (ED) Patient Language: Ukrainian Prescriptions: New polyethylene glycol 3350 [Miralax] 17 gram powder in packet 17 g PO DAILY 3 Days Qty: 14 0RF cephalexin 500 mg capsule 500 mg PO Q12H 7 Days Qty: 14 0RF No Action donepezil 5 mg tablet 1 tablet PO DAILY atorvastatin 10 mg tablet 1 tablet PO DAILY metoprolol succinate 25 mg tablet extended release 24 hr 1 tablet PO DAILY ibandronate 150 mg tablet 1 tablet PO DAILY amoxicillin-pot clavulanate 875-125 mg tablet 1 tablet PO BID 5 Days Qty: 10 0RF cephalexin 500 mg capsule 500 mg PO Q6H Qty: 28 0RF Follow-up/Referrals: Sherin,Beny Renteria DO [Primary Care Provider] -
[2024-03-11 22:18] LABS: Add Urine Microscopic? YES; Appearance Urine Clear (Clear); Bacteria Urine None Seen /hpf; Bilirubin Urine Negative (Negative); Blood Urine Negative (Negative); Color Urine Yellow (Yellow); Glucose Urine UA Negative (Negative); Ketones Urine Negative (Negative); Leukocyte Esterase Ur 1+ LEU/UL (Negative); Nitrate Urine Negative (Negative); Non Pathogenic Casts 0-2; Protein Urine Trace mg/dL (Negative); RBC Urine 0-2 /hpf (0-2); Specific Grav Ur > 1.045 (1.001-1.035); Squamous Epithelial Cell Urine None Seen /hpf (Few)
[2024-03-11 22:55] VITALS: BP 131/83; PULSE 75; RESP 18; O2SAT 100
[2024-03-11] MEDS: CEPHALEXIN 500 MG CAPSULE PO (23:23)
[2024-03-12] LABS: Procalcitonin 0.1 ng/mL
--- OUTSIDE RECORDS SUMMARY | 2024-03-18 22:35 | XMS_ITS | Encounter Summary ---
Author Organization [facility] Address [address] [place] [address]. [place] [address] [place] [address] Care Team Providers Care Environmental Issues Instructor Name Role Phone Mary Fabian MD Primary Care Provider + [phone] Reason for Visit * Auth/Cert (Routine) Specialty Diagnoses / Procedures Referred By Contac t Referred To Contact Diagnoses Lumbar radiculopathy lumbar radiculopathy Procedures INJECTION EPIDURAL TRANSFORAMINAL L1-2, L2-3 Izabela Navarro MD [facility] [address] [id number] Phone: tel: fax: Referral ID Status Reason Start Date Expiration Date Visits Re quested Visits Authorized [id number] 1 1 Encounter Details Date Type Department Care Team (Latest Contact Info) Description 02/26/2022 6:49 AM EMAIL MARKETING SPECIALIST - 02/26/2022 8:21 AM [facility] Hospital Encounter [facility] [place], [place] [id number] Izabela Navarro MD [facility] [address] [place] [phone] Discharge Disposition: Home or Self Care (Routine Discharge) Social History Tobacco Use Types Packs/Day Years Used Date Smoking Tobacco: Never Smokeless Tobacco: Never Alcohol Use Standard Drinks/Week Comments Yes 0 (1 standard drink = 0.6 oz pur e alcohol) 2 glasses of wine /week Comments No Sex and Gender Information Value Date Recorded Sex Assigned at Not on file Legal Sex Female 9:31 AM CDT Gender Identity Female 05/26/2021 6:32 AM CDT Sexual Orientation Straight 05/26/2021 6: 32 AM CDT COVID-19 Exposure Response Date Recorded In the last 10 days, have yo u been in contact with someone who was confirmed or suspected to have Coronavirus/COVID-19? No / Unsure 02/25/2022 6:57 AM EMAIL MARKETING SPECIALIST documented as of this encounter Last Filed Vital Signs Vital Sign Reading Time Taken Comments Blood Pressure 142/70 02/26/2022 8:04 AM EMAIL MARKETING SPECIALIST Pulse 64 02/26/2022 8:04 AM EMAIL MARKETING SPECIALIST Temperature 36.6 ??C (97.9 ??F) 02/26/2022 7:00 AM CS T Respiratory Rate 20 02/26/2022 8:04 AM EMAIL MARKETING SPECIALIST Oxygen Saturation 88% 02/26/2022 8:04 AM EMAIL MARKETING SPECIALIST Inhaled Oxygen Concentration - - Weight 44 kg (97 lb) 02/26/2022 7:00 AM EMAIL MARKETING SPECIALIST Height 165.1 cm (5' 5 ) 02/26/2022 7:00 AM EMAIL MARKETING SPECIALIST Body Mass Index 16.14 02/26/2022 7:00 AM EMAIL MARKETING SPECIALIST documented in this encounter Discharge Instructions * Discharge Instructions* Steffanie Bergman RN - 02/26/2022 7:13 AM EMAIL MARKETING SPECIALIST If you have the following insurances, please read CAREFULLY. Medicare and any Medicare replacement plans (Aetna Medicare, BCBS Medicare, Essence, Humana Choice,[employer] Medicare, [facility] Medicare solutions, AARP, ) Your insurance recommends we do ONE injection every THREE months depending on the amount of relief that you obtained from your injection. You should call our clinic in 2 months to schedule your next injection. APR 29 Your insurance would like to measure your overall percentage of relief along with improvements in activity 3 months after your injection. Our office will need to document your progress at the 3 monthmarker. AFTER 14 DAYS, if you feel like the injection did not give you sufficient relief, please call our office to discuss with a nurse. If your pain RETURNS AND PERSISTS BEFORE the 2 month ce, please call our office to discuss with anurse. [place] Interventional [facility] Management Discharge Instructions WHAT TO DO TODAY: Limit your activity today, but bedrest is not required You may resume your normal activity tomorrow as tolerated Do not drive a vehicle or operate hazardous equipment for the first 24 hours after your procedure. You may experience numbness, tingling, and weakness in your extremities for several hours after your injection. Please be careful when walking or standing so you do not fall. You may remove your bandage in the morning and you may shower. WHAT TO EXPECT OVER THE NEXT FEW DAYS TO A WEEK: Any weakness or tingling typically wears off after several hours but you may have some tingling forseveral days after some injections It is normal that once the numbing medicine wears off that you could be sore for several days before you notice relief. Pain should get better day by day. The steroid will start working after 2-3 days and can take up to 2 weeks for it to fully work. Everyone has different response to the injection depending on the amount of inflammation and diagnosis. HOW TO CONTROL YOUR PAIN: Injection site soreness is normal and will subside in a few days. We suggest ice packs to the injection site for 10-20 at a time ever 2-3 hours. After 24 hours you may use heat if preferred or you may alternate heat and ice. Your pain may be worse for a couple of days; you may use any medications that you were using beforeyour visit. You may also use Tylenol, Motrin or Aleve if not contraindicated by your Primary Care Physician. If you no longer have any prescribed medicine, please get your refill from the physician who fist prescribed it for you. For patients who had a Radiofrequency Ablation your pain could last for up to 2 weeks. We are an Interventional pain management. We do not prescribe pain medicine. COMMON SIDE EFFECTS OF STEROIDS: You may experience warm, flushing sensation with redness in your face, neck and chest. You may feel anxious, jittery, irritable or have trouble sleeping. You may have increased hunger or menstrual changes (for women). If you are a diabetic you may have increased blood sugars. If you do and are unable to control please call your doctor who manages your diabetes. All side effects are temporary and should subside in approximately a week. WHEN TO CALL THE DOCTOR AND HOW TO REACH US: Call [phone] ext. [phone] for scheduling, insurance questions or speak with a nurse. Our hours are Wednesday- 8:00am-4:00pm Call the number above for any bleeding/drainage/redness/swelling at the injection site, severe pain, persistent chills, fever over 101 or greater, or new or different pain or numbness. If you are unable to reach us call 911 or go to the nearest emergency room. If you have shortness of breath, fast heart rate, throat/tongue swelling call 911 or go to the nearest emergency room. ANY NEW BOWEL OR BLADDER INCONTINENCE ISSUES OR NUMBNESS TO PELVIC REGION PLEASE GO TO THE EMERGENCY ROOM IMMEDIATELY! L MARKETING SPECIALIST documented in this encounter Medications at Time of Discharge aspirin EC 81 MG tablet Take 81 mg by mouth every morning. atorvastatin (LIPITOR) 40 MG tablet 01/26/2022 calcium-vitamin D 250-125 MG-UNIT tablet Take 1 tablet by mouth daily. ibandronate 150 MG tablet 12/13/2020 metoprolol succinate ER 25 MG 24 hr tablet Take 25 mg by mouth every morning. 07/19/2019 Multiple Vitamin (MULTIVITAMIN) capsule Take 1 capsule by mouth daily. donepezil 5 MG Tab Take 1 tablet by mouth nightly. 05/07/2021 05/29/2022 DULoxetine HCl 30 MG Capsule Delayed Release Sprinkle 02/14/2022 05/29/2022 HYDROcodone-aceta minophen (NORCO) 5-325 MG tablet Take 1 tablet by mouth 3 (three) times a day. 05/29/2022 LORazepam (ATIVAN) 0.5 MG tablet Take 0.25 mg by mouth. 02/11/2022 05/29/2022 documented as of this encounter H&P Notes * Izaebla Navarro MD - 02/26/2022 7:56 AM CST HISTORY AND PHYSICAL INTERVAL NOTE: I have reviewed Dottie Bryant History & Physical which was performed within the past 30 days. After examining Dottie Bryant, no change has occurred in the patient's condition since the H&P was completed. Informed Consent Discussion: Risks, benefits, alternatives as well as the consequences of not performing the surgery/procedure were discussed with the patient and/or family/personal office machines sales representative. Questions were answered and the patient/family/personal office machines sales representative verbalized understanding and desires to proceed. Previous Adverse Experience with Sedation, Analgesia, or Anesthesia? No Risk benefits and alternate treatments were discussed. Signed: IZABELA NAVARRO MD 7:56 AM L MARKETING SPECIALIST Source Note - MAKAYLA Rosales - 02/25/2022 8:00 AM EMAIL MARKETING SPECIALIST Summary: Pain to the left groin, left low back pain Interventional Pain Management History & Physical Referring Provider: Mary Fabian MD Chief Complaint: She has been experiencing pain to the left groin, and mild left low back pain. HPI: Dottie Bryant is a 76-year-old female who is seen today for evaluation of low back and left groin pain as referred by Mary Fabian MD. She has been experiencing bob to the left groin, and mild left low back pain.She was last seen in this office on 02/03/2021, underwent a left L1-2, L5-S1 lumbar transforaminal epidural steroid injection procedure, had been experiencing some left groin pain at that time, and reports excellent relief following the lumbar transforaminal epiduralsteroid injection procedure. She said the low back pain is mild, and that her chief complaint is the pain to the left groin. She denies recent trauma. She did undergo evaluation at [facility] for left groin pain on 02/09/2022, urinary tract infection was ruled out at that time. She rates her current pain level as 0 on a 0-to-10 scale, but said that when it occurs the pain is sharp, shooting, aching, particularly to the left groin. She said her pain is increased with standing, and at times sitting. She says she has tried application of heat for relief, and does use acetaminophen 500 mg, which has been helpful. She denies urinary or bowel incontinence, denies anesthesias in saddle region. She does mention she follows with dispute resolution specialist Obi Gabriel MD, will be undergoing foot injection on March 20, 2022. Past Medical History: Diagnosis Date ??? Arthritis ??? Essential hypertension ??? Hoarseness ??? Hypercholesteremia ??? Syncopal episodes ??? TIA (transient ischemic attack) ??? Weight loss Past Surgical History: Procedure Laterality Date ??? CATARACT EXTRACTION ??? SECTION X2 ??? HC CATHETER ABLATION NON-CARDIAC ENDO T1 ??? HC LIGATION/STRIP VARICOSE VEINS ??? SKIN TISSUE PROCEDURE UNLISTED (Not in a hospital admission) Allergies Allergen Reactions ??? Celecoxib Other (see comment) Reaction: Social History Socioeconomic History ??? Marital status: Spouse name: Not on file ??? Number of children: 2 ??? Years of education: Not on file ??? Highest education level: Not on file Occupational History ??? Not on file Tobacco Use ??? Smoking status: Never ??? Smokeless tobacco: Never Substance and Sexual Activity ??? Alcohol use: Yes Comment: 2 glasses of wine /week ??? Drug use: Never ??? Sexual activity: Not on file Other Topics Concern ??? Exercise Yes ??? Special Diet No ??? Caffeine Concern No ??? Service Not Asked ??? Blood Transfusions Not Asked ??? Occupational Exposure Not Asked ??? Hobby Hazards Not Asked ??? Sleep Concern Not Asked ??? Stress Concern Not Asked ??? Weight Concern Not Asked ??? Back Care Not Asked ??? Bike Helmet Not Asked ??? Seat Belt Yes ??? Self-Exams Not Asked ??? Wheelchair No ??? Walker No ??? Upper extremity braces/slings No ??? Lower extermity braces/slings No ??? Self Care Yes Social History Narrative Lives at home with her Social Determinants of Health Financial Resource Strain: Not on file Food Insecurity: Not on file Transportation Needs: Not on file Physical Activity: Not on file Stress: Not on file Social Connections: Not on file Intimate Partner Violence: Not on file Housing Stability: Not on file Family History Problem Relation Name Age of Onset ??? Heart Attack Mother ??? Heart Attack Father Review of Systems Constitutional: Weight loss, said PCP is aware. HENT: Negative. Eyes: Negative. Respiratory: Negative. Cardiovascular: Negative. Gastrointestinal: Negative. Denies incontinence of bowels Endocrine: Negative. Genitourinary: Negative. Denies urinary incontinence Musculoskeletal: Pain to the left groin, left low back pain Skin: Negative. Neurological: History of TIa follows with neurologist, Dr. Guillaume at [facility]. Hematological: Negative. Psychiatric/Behavioral: Negative. Filed Vitals: 02/25/22 0707 02/25/22 0753 BP: (!) 158/72 (!) 142/70 Pulse: 66 Resp: 18 Temp: 97.1 ??F (36.2 ??C) TempSrc: Skin SpO2: 100% Weight: 44.3 kg (97 lb 9.6 oz) Height: 5' 5 (1.651 m) Diagnostic Workup: She had an xray of the left hip on 12/11/2020. The radiologist's report was reviewed and is copied below: DISCUSSION and IMPRESSION: AP view of the pelvis and hips and AP view and lateral view of the left hip. No acute fracture or dislocation. Minimal hypertrophic spurring at the femoral greater trochanters bilaterally. Hip joint spaces are within normal limits for age. Multiple small surgical clips in the left groin region. At least moderate degenerative changes of the lower lumbar spine and lumbosacral junction. Moderate degenerative changes at the symphysis pubis. Mild degenerative changes at the sacroiliac joints. Arterial atherosclerotic calcifications in the pelvis and proximal thighs. Moderate volume colonic stool. Referred By: MARY FABIAN Interpreted By: Chauncey Sanches, 12/11/2020 11:01 AM ?? Diagnostic Workup: She had an x-ray of the sacroiliac joints on 11/08/2020 [facility]. The radiologist report was reviewed and is copied below: FINDINGS: BONES/JOINTS: No acute fracture or dislocation. No suspicious bone lesion. Bilateral sacroiliac joints are symmetrically intact without erosions. SOFT TISSUES: Unremarkable. Multiple surgical clips seen in the left groin region. OTHER: Severe disc space narrowing at L5/S1 noted with significant endplate sclerosis and osteophyte formation. IMPRESSION: 1. Bilateral sacroiliac joints are symmetric and intact. 2. Advanced degenerative changes at L5/S1 with severe disc space narrowing, endplate sclerosis and prominent endplate osteophyte formation. THIS IS AN ELECTRONICALLY VERIFIED FINAL REPORT 11/08/2020 11:23 AM - Electronically signed by Jasen Quick M.D. ML: ALYSON Report ID: [id number] Reading Location: [id number] ? She had an MRI of the lumbar spine on 12/06/2020. The radiologist report was reviewed and is copied below: FINDINGS: There are 5 lumbar type vertebral bodies designated as L1 through L5; using this numbering system, the conus medullaris terminates at L2 and appears unremarkable. ??Mid lumbar levoscoliosis. There is multilevel grade 1 retrolisthesis of T12 on L1 through L3 on L4. There is grade 1 anterolisthesis of L4 on L5. Otherwise the lumbar vertebral alignment, vertebralbody heights, and facet alignment are maintained. Multilevel degenerative changes are seen in the lower thoracic and lumbar levels with disc degeneration, endplate osteophytes, ligamentum flavum thickening, and facet hypertrophy noted. Multilevel disc desiccation. Greatest loss of disc height at T12-L1, L1-L2, and L5-S1. Likely reactive/degenerative edema seen along the T12-L2 and L5-S1 endplates. Imaged portions of the soft tissues reveal no acute findings. ??T10-T11 and T11-T12: Small disc bulges, evaluated only on sagittal images. ??T12-L1: Retrolisthesis. Disc bulge. Small left central/subarticular protrusion. Mild ligamentous/facet hypertrophy. Flattening of the left ventral thecal sac. No significant canal or foraminal narrowing. ??L1-L2: Retrolisthesis. Disc bulge. Posterior and marginal endplate osteophytes. Ligamentous/facethypertrophy. Flattening of the ventral thecal sac, more so on the left. Minimal canal stenosis. Moderate to severe left foraminal narrowing. ??L2-L3: Listhesis. Disc bulge with extension into the foramina. Ligamentum flavum thickening. Facet hypertrophy. Posterior and marginal endplate osteophytes. Mild canal stenosis. Mild left foraminalnarrowing. ??L3-L4: Slight retrolisthesis. Disc bulge with extension into the foramina. Posterior and marginalendplate osteophytes. Ligamentum flavum thickening. Facet hypertrophy. Bilateral lateral recess andmild canal stenosis. Moderate to severe right and mild left foraminal narrowing. ??L4-L5: Anterolisthesis and disc uncovering. Disc bulge with extension into the foramina. Marginalendplate osteophytes. Superimposed right foraminal protrusion. Ligamentum flavum thickening. Prominent facet arthropathy. Bilateral lateral recess and mild to moderate canal stenosis. Mild to moderate foraminal narrowing. ??L5-S1: Disc bulge with extension into the foramina. Posterior and marginal endplate osteophytes. Ligamentum flavum thickening. Prominent facet arthropathy. Left greater the right lateral recess andmild to moderate canal stenosis. Moderate to severe left greater than right foraminal narrowing. IMPRESSION: 1. Multilevel degenerative changes in the lumbar and partially imaged lower thoracic spine. Greatest canal stenosis at L4-L5, accentuated by degenerative grade 1 anterolisthesis. Most severe foraminal narrowing at L1 to, L3-L4, and L5-S1. 2. Additional multilevel degenerative changes elsewhere as detailed above. 3. Likely reactive/degenerative edema along multiple lower thoracic and lumbar endplates. 4. Mid lumbar levoscoliosis and multilevel listheses as detailed above. ??Referred By: MARY FABIAN ?? Interpreted By: Kevin Xiao MD, 12/09/2020 11:[address] of the abdomen on 02/09/2022 at [facility]. Radiologist report was reviewed and is copied below: FINDINGS: LOWER CHEST: ?? No focal consolidation or pleural effusion. LIVER: ?? Normal size. No identified cystic or solid masses. GALLBLADDER: ?? Unremarkable BILE DUCTS: ?? No intrahepatic or extrahepatic ductal dilatation. SPLEEN: ?? Normal size. ??No focal lesions. PANCREAS: ?? No identified cystic or solid masses. No significant calcifications. No adjacent inflammation or peripancreatic fluid collections. Pancreatic duct not dilated. ?? ADRENALS: ?? Unremarkable KIDNEYS/URINARY TRACT: ?? Normal size with symmetric enhancement. No focal lesion identified. ??No renal calculus or hydronephrosis. ??Limited evaluation of the ureters due to abdominal crowding. ??Urinary bladder is unremarkable. GI: ?? Gastroesophageal junction stomach unremarkable. ??Normal course and caliber small bowel withno obstruction. ??Several nondilated fluid-filled loops of small bowel the lower abdomen and pelvis which are nonspecific and may be secondary to slow transit or enteritis in the appropriate clinical setting. ??Appendix not definitively seen. ??Scattered colonic diverticula with no definite evidence of diverticulitis identified although suboptimal evaluation the sigmoid colon due to abdominal crowding. ??Large amount of stool throughout the colon. PERITONEUM: ?? No ascites or free air. RETROPERITONEUM: ?? No mass or adenopathy. REPRODUCTIVE: ?? Limited evaluation of the pelvic contents on this exam. VASCULATURE: ?? Aortic atherosclerotic vascular disease with no aneurysm. MUSCULOSKELETAL: ?? No acute finding or concerning lesion. ??Moderate lumbar scoliosis with multilevel spondylitic changes ??grade 1 anterolisthesis of L4 on L5. OTHER: ?? Few mildly prominent bilateral inguinal lymph nodes, nonspecific but likely reactive. IMPRESSION: ?? 1. ?? Sigmoid colon diverticulosis with no definite evidence of diverticulitis although limited evaluation of the sigmoid colon due to crowding in the pelvis and technique related noise. ??Clinical correlation is needed. 2. ?? Nondilated fluid-filled loops of small bowel in the pelvis. ??Nonspecific but can be seen with enteritis in the appropriate clinical setting. 3. ?? Stable chronic findings detailed above. REFERENCE: Unless otherwise specified, no follow-up imaging is recommended for incidental renal andadrenal lesions per consensus recommendations based on imaging criteria. Further lab evaluation could be pursued based on clinical findings. Management of the Incidental Renal Mass on CT: A White Paper of the ACR Incidental Findings Committee. J Am Andrew Radiol. 2018 Apr;15(2):264-273. Management of Incidental Adrenal Masses: A White Paper of the ACR Incidental Findings Committee. J Am Andrew Radiol. 2017 Oct;14(8):5445-0199. THIS IS AN ELECTRONICALLY VERIFIED FINAL REPORT 02/09/2022 3:32 PM - Electronically signed by ??Felipe CALLAHAN D: ??02/09/2022 3:32 PM T: Report ID: [id number] Reading Location: ??[id number] Physical Exam Body mass index is 16.24 kg/m??. The patient is alert and oriented x 3 and follows directions and answers questions appropriately. Her skin is warm and dry. Mood and affect: Calm, pleasant, and cooperative. General examination of her heart, lungs and abdomen was unremarkable. The patient rises fromthe seated position without difficulty. Her gait is steady, no difficulty with heel and toe walk. No scarring, redness, lesions, or sign of infection noted to the lumbar region. She denies pain to deep palpation across the lumbar facets. Mild tenderness noted to palpation of the left SI joint and left buttock. She denies tenderness to palpation of the left or right hip joint line. Range of motionof her back is limited with extension, forward flexion and left and right lateral rotation. Sittingstraight leg lift is negative bilaterally. Motor strength to lower extremities is 5/5 with hip flexion, knee extension and flexion, ankle dorsiflexion, plantar flexion and hallux extension bilaterally. No color change, redness, warmth, edema or discrepancy in calf size noted to the lower extremities. Sensation to palpation of the lower extremities is equal and intact bilaterally. No clonus and downgoing Babinski's bilaterally. Patellar and achilles reflexes are 2/4 bilaterally. Posterior tibialpulses are +2 bilaterally. Capillary refill of the lower extremities is less than 3 seconds bilaterally. Impression: Lumbar radiculopathy Recommendations: I spent 35 minutes today reviewing the patient's medical record, obtaining history, performing an exam, ordering medications, tests, and/or procedures, documenting in the medical record, counseling and educating the patient, reviewing and communicating test results and coordinating careShe was accom panied to day by her , Felix. She has been experiencing bob to the left groin, and mild left low back pain. We discussed a left L1-2, L2-3 lumbar transforaminal epidural steroid injection as a treatment option. The procedure was described in detail as were the risks, benefits and alternative treatments, and she verbalized understanding. Risks including, but not limited to infection, elevations in blood glucose levels, permanent neurological deficit due to nerve root injury, bleeding, anaphylaxis, flushing, cerebral spinal fluid leak, paralysis, spinal cord injury, thinning of the skin, thinning of the bones, muscle cramping, were reviewed with her and she verbalized understanding. She is agreeable to a plan to move forward with the lumbar transforaminal epidural steroid injection procedure, which will be completed by Dr. Navarro at her next office visit. It was my pleasure to participate in her care. Thank you for referring this very pleasant patient. MAKAYLA ROSALES CC: Mary Fabian MD Cosigned by Izabela Navarro MD at 02/26/2022 7:55 AM EMAIL MARKETING SPECIALIST L MARKETING SPECIALIST L MARKETING SPECIALIST documented in this encounter OR Notes * Op Note - Izabela Navarro MD - 02/26/2022 8:07 AM CST PROCEDURE: LUMBAR TRANSFORAMINAL EPIDURAL STEROID INJECTION UNDER FLUOROSCOPY LEVELS: LEFT L1-2 AND L2-3 PREOPERATIVE DIAGNOSIS: LUMBAR RADICULOPATHY POSTOPERATIVE DIAGNOSIS: SAME PREOP SURGEON: IZABELA NAVARRO MD RISKS, BENEFITS, ALTERNATE TREATMENTS DISCUSSED. WRITTEN CONSENT OBTAINED. PATIENT TAKEN TO PROCEDURE ROOM PLACED IN PRONE POSITION. PILLOW UNDER ABDOMEN TO REDUCE LUMBAR LORDOSIS. STERILE PREP AND DRAPE OF LUMBOSACRAL SPINE PERFORMED. ASA STANDARD MONITORS APPLIED. Risks including, but not limited to infection, permanent neurological deficit due to nerve root injury, bleeding, anaphylaxis, flushing, cerebral spinal fluid leak, paralysis, spinal cord injury, thinning of the skin, thinning of the bones, muscle cramping. PROCEDURE: VERTEBRAL BODIES WERE SQUARED.. SKIN AND SUBCUTANEOUS TISSUES ANESTHETIZED WITH 1% LIDOCAINE. 22 GAUGE CHIBA NEEDLES WITH BENT TIPS WERE USED. C ARM WAS MOVED TO THE OBLIQUE X RAY VIEW. TARGET FOR L 1-2 AND L2-3 NERVE ROOT IS THE 6 O???CLOCK POSITION OF THE PEDICLE SHADOW IN THE OBLIQUE X RAY VIEW AT THE LEVEL OF L 1-2 AND L3-4 ON THE left SIDE. APPROPRIATE NEEDLE TIP POSITION WAS CONFIRMED IN THE AP,OBLIQUE AND LATERAL VIEWS. AFTER NEGATIVE ASPIRATION, 5 CC OF CONTRAST SPLIT BETWEEN THE ABOVE MENTIONED LEVELS WAS INJECTED IN THE LATERAL VIEW CONFIRMING SPREAD IN THE ANTERIOR EPIDURAL SPACE. NEGATIVE ASPIRATION PRIOR TO 5 CC OF CONTRAST INJECTED IN THE AP VIEW CONFIRMING SPREAD ALONG THE APPROPRIATE NERVE ROOTS ALONG WITH EDIDURAL SPREAD. NO INTRAVASCULAR OR INTRATHECAL UPTAKE NOTED. NEGATIVE ASPIRATION PRIOR TO INJECTION OF 4OMG DEPOMEDROL AND 2 CC OF 0.25% BUPIVACAINE INJECTED PER LEVEL. NEEDLES REMOVED. NO COMPLICATIONS. POST PROCEDURE: PATIENT TOLERATED PROCEDURE WELL AND OBSERVED PRIOR TO DISCHARGE. DISCHARGED IN STABLE CONDITION WITH APPROPRIATE POST-PROCEDURE INSTRUCTIONS. L MARKETING SPECIALIST documented in this encounter Plan of Treatment Upcoming Encounters Date Type Department Care Team (Late st Contact Info) Description 02/05/2025 10:00 AM EMAIL MARKETING SPECIALIST Office Visit [facility], [address] [place], [place] [phone] Stuart Garrett MD Three [facility]. [address] [place], [place] [id number] documented as of this encounter Procedures Procedure Name Priority Date/Time Associated Diagnosis Comments INJECTION EPIDURAL TRANSFORAMINAL 02/26/2022 7:53 AM EMAIL MARKETING SPECIALIST Lumbar radiculopathy XR PAIN CLINIC C-ARM Today 02/26/2022 7:34 AM EMAIL MARKETING SPECIALIST documented in this encounter Results * XR PAIN CLINIC C-ARM (02/26/2022 7:34 AM EMAIL MARKETING SPECIALIST) Narrative Radiology, Technologist - 02/26/2022 7:34 AM EMAIL MARKETING SPECIALIST This report does not contain a radiologist's interpretation. Please review associated procedure and/or operative report. Izabela Navarro MD GENERAL IMAGING Final Result documented in this encounter Visit Diagnoses Diagnosis Lumbar radiculopathy- Primary Thoracic or lumbosacral neuritis or radiculitis, unspecified Lumbar radiculopathy Thoracic or lumbosacral neuritis or radiculitis, unspecified documented in this encounter Admitting Diagnoses Diagnosis Lumbar radiculopathy Thoracic or lumbosacral neuritis or radiculitis, unspecified documented in this encounter Administered Medications Inactive Administered Medications - up to 3 most recent administrations Medication Order MAR Action Action Date Dose Rate Site chlorhexidine (PERIDEX) 0.12 % solution 15 mL 15 mL, Mouth/Throat, PRN, Prior to surgery, 1 dose, Starting on Charmaine 02/26/22 at 0715, Until Charmaine 02/26/22 at 1022, Patient to perform oral care first. Swish/Gargle in mouth for 30 seconds, and then discard, prior to going to surgery/ If ventilated use saturated swab to clean oral cavity., Pre-Op documented in this encounter Active and Recently Administered Medications Times are shown in EMAIL MARKETING SPECIALIST. PRN Medication Order 02/24/2022 02/25/2022 02/26/2022 BUpivacaine (PF) (MARCAINE) 0.25 % injection (CANCELED) As needed, Starting on Charmaine 02/26/22 at 0804, Until Charmaine 02/26/22 at 0805, Intra-Op 0804 (Given - Provid er: Izabela Navarro MD) chlorhexidine (PERIDEX) 0.12 % solution 15 mL 15 mL, Mouth/Throat, PRN, Prior to surgery, 1 dose, Starting on Charmaine 02/26/22 at 0715, Until Charmaine 02/26/22 at 1022, Patient to perform oral care first. Swish/Gargle in mouth for 30 seconds, and then discard, prior to going to surgery/ If ventilated use saturated swab to clean oral cavity., Pre-Op iopamidol (ISOVUE-M 300) 61 % injection (CANCELED) As needed, Starting on Charmaine 02/26/22 at 0803, Until Charmaine 02/26/22 at 0805, Intra-Op 0803 (Given - Provid er: Izabela Navarro MD) lidocaine (PF) (XYLOCAINE) 1 % injection (CANCELED) As needed, Starting on Charmaine 02/26/22 at 0800, Until Charmaine 02/26/22 at 0805, Intra-Op 0800 (Given - Provid er: Izabela Navarro MD) methylPREDNISolone acetate (DEPO-Medrol) injection (CANCELED) As needed, Starting on Charmaine 02/26/22 at 0804, Until Charmaine 02/26/22 at 0805, Intra-Op 0804 (Given - Provid er: Izabela Navarro MD) documented in this encounter Care Teams Environmental Issues Instructor Relationship Specialty Start Date End Date Mary Fabian MD [address] [place] [address] PCP - General FAMILY PRACTICE 08/25/19 documented as of this encounter
--- OUTSIDE RECORDS SUMMARY | 2024-03-18 22:35 | XMS_ITS | Encounter Summary ---
Author Organization [facility] Address [address] [place] [address]. [place] [address] [place] [address] Care Team Providers Care Textile Coating Machine Operator Name Role Phone Beau Clement MD Primary Care Provider [phone] Encounter Details Date Type Department Care Team (Latest Contact Info) Description 01/25/2023 Travel Social History Tobacco Use Types Packs/Day Years [...] Orientation Straight 05/26/2021 6: 32 AM CDT documented as of this encounter Plan of Treatment Upcoming Encounters Date Type Department Care Team (Late st Contact Info) Description 02/05/2025 10:00 AM TOOL AND CUTTER GRINDER Office Visit [facility], [facility] [address] [place], [place] [phone] Stuart Garrett MD [facility]. [facility] [address] [place], [place] [phone] documented as of this encounter Visit Diagnoses Not on filedocumented in this encounter Care Teams Textile Coating Machine Operator Relationship Specialty Start Date End Date Beau Clement MD [address] [place] [address] PCP - General FAMILY PRACTICE 08/25/19 documented as of this encounter
--- OUTSIDE RECORDS SUMMARY | 2024-03-18 22:35 | XMS_ITS | Clinical Summary ---
Author Organization [facility] Address [address] [place] [address]. [place] [address] [place] [address] Care Team Providers Care Ecommerce Analyst Name Role Phone Beau Clement MD Primary Care Provider + [phone] Allergies Active Allergy Reactions Criticality Noted Date Comments Celecoxib Other (see comment) Low 07/14/2018 Reaction: Medications aspirin EC 81 MG tablet Take 81 mg by mouth every morning. Active metoprolol succinate ER 25 MG 24 hr tablet Take 25 mg by mouth every morning. 07/19/2019 Active Multiple Vitamin (MULTIVITAMIN) capsule Take 1 capsule by mouth daily. Active calcium-vitamin D 250-125 MG-UNIT tablet Take 1 tablet by mouth daily. Active ibandronate 150 MG tablet 12/13/2020 Active atorvastatin (LIPITOR) 40 MG tablet 01/26/2022 Active gabapentin (NEURONTIN) 100 MG capsule Take 1 capsule (100 mg total) by mouth 2 (two) times daily. 04/22/2022 Active donepezil (ARICEPT) 10 MG Tab 04/13/2022 Active memantine (NAMENDA) 10 MG tablet Take 1 tablet (10 mg total) by mouth 2 (two) times daily. 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) 01/14/2022 Dyslipidemia 09/10/2017 Essential (primary) hypertension 07/01/2015 Lung nodule 07/01/2015 Osteopenia 07/01/2015 Varicose veins of both lower extremities 016 Vitamin D deficiency 07/01/2015 Resolved Problems Problem Noted Date Diagnosed Date Resolved Date Syncopal episodes 05/21/2021 Encounters Date Type Department Care Team Description 01/31/2024 10:00 AM DAIRY BACTERIOLOGIST Office Visit [facility], [address] [address] Colette Garrett MD Supraventricular Tachycardia (annual) 01/31/2024 Travel from Last 3 Months Family History Medical History Relation Comments Heart Attack Father Heart Attack Mother Relation Status Comments Father Mother Sister Alive Social History Tobacco Use Types Packs/Day Years Used Date Smoking Tobacco: Never Smokeless Tobacco: Never Tobacco Cessation:Counseling Given: Not Answered Alcohol Use Standard Drinks/Week Comments Yes 0 (1 standard drink = 0.6 oz pur e alcohol) 2 glasses of wine /week Comments No Sex and Gender Information Value Date Recorded Sex Assigned at Not on file Legal Sex Female 9:31 AM CDT Gender Identity Female 05/26/2021 6:32 AM CDT Sexual Orientation Straight 05/26/2021 6: 32 AM CDT Last Filed Vital Signs Vital Sign Reading Time Taken Comments Blood Pressure 122/64 01/31/2024 9:49 AM DAIRY BACTERIOLOGIST Pulse 49 01/31/2024 9:49 AM DAIRY BACTERIOLOGIST Temperature 36.6 ??C (97.9 ??F) 02/26/2022 7:00 AM CS T Respiratory Rate 20 02/26/2022 8:04 AM DAIRY BACTERIOLOGIST Oxygen Saturation 100% 07/20/2022 10:09 AM CDT Inhaled Oxygen Concentration - - Weight 46.7 kg (103 lb) 01/31/2024 9:49 AM DAIRY BACTERIOLOGIST Height 165.1 cm (5' 5 ) 01/31/2024 9:49 AM DAIRY BACTERIOLOGIST Body Mass Index 17.14 01/31/2024 9:49 AM DAIRY BACTERIOLOGIST Plan of Treatment Upcoming Encounters Date Type Department Care Team (Late st Contact Info) Description 02/05/2025 10:00 AM DAIRY BACTERIOLOGIST Office Visit [facility], [facility] [address] [place], [place] [phone] Colette Garrett MD Three [facility]. [facility] [address] [place], [place] [phone] Health Maintenance Due Date Last Done Comments Hepatitis C 1963 Annual Medicare Wellness Visit 07/11/2011 RSV Immunization or 60+ Years (1 - 1-dose 75+ series) 2021 COVID-19 Vaccine ( - season) 2023 11/24/2022, 05/28/2020, 04/17/2020 DTaP, Tdap and Td Vaccines (3 - Td or Tdap) 09/04/2031 09/03/2021, 05/06/2018 Zoster Vaccines Completed 11/03/2017, 06/2017, 08/27/2010 Pneumococcal Vaccine: 65+ Years Completed 10/01/2020, 03/28/2019 Dexa Scan (General) Completed 01/25/2023, 01/25/2023, 12/06/2020, Additional history exists Influenza Adult Completed 11/12/2023, 11/06, 11/28/2018, Additional history exists Meningococcal Vaccine Aged Out No mary viry eligible based on patient's age to complete this topic RSV Immunizations Under 20 Months Aged Out No longer eligible based on patient's age to complete this topic Procedures Procedure Name Priority Date/Time Associated Diagnosis Comments ELECTROCARDIOGRAM (NON MIDMARK ACQUIRED) Routine 01/31/2024 9:55 AM DAIRY BACTERIOLOGIST SVT (supraventricular tachycardia) ([facility]) from Last 3 Months Results * ELECTROCARDIOGRAM (01/31/2024 9:55 AM DAIRY BACTERIOLOGIST) 01/31/2024 9:55 AM DAIRY BACTERIOLOGIST Narrative [facility] - 02/01/2024 7:29 PM DAIRY BACTERIOLOGIST ?[facility], [facility]? [place] ? Test Date: ?2024-01-31 Pat Name: ? DOTTIE HUANG ?Department: ?? 112 ? Room: ? Gender: ? Female ? Candy Puller: ?? : ?1945 ? Requested By: PABAN SHARON Order Number: [id number] ?Reading MD: ?? Paban Sharon ? Measurements Intervals ?[place] ? Rate: ? 49 ? P: ?29 [place]: ? 172 ?QRS: ?-7 QRSD: ? 114 ?T: ?10 QT: ? 469 ? QTc: ?423 ? Interpretive Statements SINUS BRADYCARDIA INCOMPLETE RIGHT BUNDLE BRANCH BLOCK VOLTAGE CRITERIA FOR LVH Compared to ECG dated 05/26/21, findings are similar. Y BACTERIOLOGIST Procedure Note Colette Garrett MD - 02/01/2024 [facility]? [facility] Test Date: 2024-01-31 Pat Name: DOTTIE HUANG Department: 112 Room: Gender: Female Candy Puller: : 1945 Requested By: COLETTE GARRETT Order Number: [id number] Reading MD: Colette Garrett Measurements Intervals [place] Rate: 49 P: 29 [place]: 172 QRS: -7 QRSD: 114 T: 10 QT: 469 QTc: 423 Interpretive Statements SINUS BRADYCARDIA INCOMPLETE RIGHT BUNDLE BRANCH BLOCK VOLTAGE CRITERIA FOR LVH Compared to ECG dated 05/26/21, findings are similar. Y BACTERIOLOGIST us Colette Garrett MD PROCEDURES-ORDERABLE NO CHARGE F inal Result [facility] from Last 3 Months Insurance ESSENCE ESSENCE Advance Directives Documents on File Type Date Recorded Patient Land Surveying Party Chief Expl anation Advance Directives and Living Will 09/24/2023 11:36 AM 11/27/2020 POA HC Care Teams Ecommerce Analyst Relationship Specialty Start Date End Date Beau Clement MD [address] [place], [place] [address] PCP - General FAMILY PRACTICE 08/25/19
--- OUTSIDE RECORDS SUMMARY | 2024-03-18 22:35 | XMS_ITS | Encounter Summary ---
Author Organization [facility] Address [address] [place] [address]. [place] [address] [place] [address] Care Team Providers Care Tank Car Reconditioner Name Role Phone Beau Clement MD Primary Care Provider + [phone] Encounter Details Date Type Department Care Team (Latest Contact Info) Description 01/09/2021 Travel Social History Tobacco Use Types Packs/Day [...] Exposure Response Date Recorded In the last month, have you been in contact with someone who was confirmed or suspected to have Coronavirus / COVID-19? No / Unsure 01/09/2021 9:31 AM CDT documented as of this encounter Plan of Treatment Upcoming Encounters Date Type Department Care Team (Late st Contact Info) Description 02/05/2025 10:00 AM WOOD WEB WEAVING MACHINE OPERATOR Office Visit [facility], [place] [address] [place] [address] [facility]. [facility] [address] [place] [address] documented as of this encounter Visit Diagnoses Not on filedocumented in this encounter Care Teams Tank Car Reconditioner Relationship Specialty Start Date End Date Beau Clement MD [address] [facility] [place], [place] [phone] PCP - General FAMILY PRACTICE 08/25/19 documented as of this encounter
--- OUTSIDE RECORDS SUMMARY | 2024-03-18 22:35 | XMS_ITS | Encounter Summary ---
Author Organization [facility] Address [address] [place] [address]. [place] [address] [place] [address] Care Team Providers Care Government Guard Name Role Phone Mary Fabian MD Primary Care Provider [phone] Reason for Visit * Consultation/Treatment (Routine) - Closed Specialty Diagnoses / Procedures Referred By Contac t Referred To Contact PAIN MANAGEMENT / [facility] Pain Management Diagnoses LBP Mary Fabian MD [address] [place] [address] Phone: tel: fax: Maribel Qureshi APNP Phone: tel: fax: Referral ID Status Reason Start Date Expiration Date Visits Re quested Visits Authorized [id number] Closed 02/11/2022 02/12/2023 12 12 Encounter Details Date Type Department Care Team (Latest Contact Info) Description 02/25/2022 6:57 AM BLIND TEACHER - 02/25/2022 11:59 PM [facility] Hospital Encounter [facility] [address] [place], [place] [phone] Maribel Qureshi APNP [address] [place] [phone] Discharge Disposition: Home or Self Care (Routine [...] Coronavirus/COVID-19? No / Unsure 02/25/2022 6:57 AM BLIND TEACHER documented as of this encounter Last Filed Vital Signs Vital Sign Reading Time Taken Comments Blood Pressure 142/70 02/25/2022 7:53 AM BLIND TEACHER Pulse 66 02/25/2022 7:07 AM BLIND TEACHER Temperature 36.2 ??C (97.1 ??F) 02/25/2022 7:07 AM CS T Respiratory Rate 18 02/25/2022 7:07 AM BLIND TEACHER Oxygen Saturation 100% 02/25/2022 7:07 AM BLIND TEACHER Inhaled Oxygen Concentration - - Weight 44.3 kg (97 lb 9.6 oz) 02/25/2022 7:07 AM BLIND TEACHER Height 165.1 cm (5' 5 ) 02/25/2022 7:07 AM BLIND TEACHER Body Mass Index 16.24 02/25/2022 7:07 AM BLIND TEACHER documented in this encounter Medications at Time [...] capsule Take 1 capsule by mouth daily. atorvastatin 10 MG tablet Take 10 mg by mouth daily. 07/19/2019 02/26/2022 calcium carb-cholecalcife rol 250-125 MG-UNIT tablet Take 1 tablet by mouth daily. 02/26/2022 donepezil 5 MG Tab Take 1 tablet by mouth nightly. 05/07/2021 05/29/2022 DULoxetine HCl 30 MG Capsule Delayed Release Sprinkle 02/14/2022 05/29/2022 HYDROcodone-aceta minophen (NORCO) 5-325 MG tablet Take 1 tablet by mouth 3 (three) times a day. 05/29/2022 LORazepam (ATIVAN) 0.5 MG tablet Take 0.5 mg by mouth daily. 02/26/2022 LORazepam (ATIVAN) 0.5 MG tablet Take 0.25 mg by mouth. 02/11/2022 05/29/2022 documented as of this encounter H&P Notes * Maribel QureshiMAKAYLA - 02/25/2022 8:00 AM CSTSummary: Pain to the left groin, left low [...] recent trauma. She did [facility] on 02/09/2022, urinary [...] region. She does mention she follows with production ski repairer Obi Gabriel MD, will be undergoing foot [...] x-ray of the sacroiliac joints on 11/08/2020 [facility]. The radiologist report was reviewed and is [...] Jasen Quick M.D. ML: ALYSON Report ID: [id number] Reading Location: [place] [address] ? She had an MRI of the [...] CT of the abdomen on 02/09/[address] [facility]. Radiologist report was reviewed and is copied [...] Findings Committee. J Am Andrew Radiol. 2017 Oct;14(8):1859-5907. THIS IS AN ELECTRONICALLY VERIFIED FINAL REPORT 02/09/2022 3:32 PM - Electronically signed by ??Felipe CALLAHAN D: ??02/09/2022 3:32 PM T: Report ID: [id number] Reading Location: ??[id number] Physical Exam Body mass index is 16.24 [...] Izabela Navarro MD at 02/26/2022 7:55 AM BLIND TEACHER D TEACHER D TEACHER documented in this encounter Plan of Treatment Upcoming Encounters Date Type Department Care Team (Late st Contact Info) Description 02/05/2025 10:00 AM BLIND TEACHER Office Visit [facility], [facility] [address] [place], [place] [phone] Stuart Garrett MD [facility]. [facility] [address] [place], [place] [address] documented as of this encounter Visit Diagnoses Not on filedocumented in this encounter Care Teams Government Guard Relationship Specialty Start Date End Date Mary Fabian MD [address] [place], [place] [phone] PCP - General FAMILY PRACTICE 08/25/19 documented as of this encounter
--- OUTSIDE RECORDS SUMMARY | 2024-03-18 22:35 | XMS_ITS | Encounter Summary ---
Author Organization [facility] Address [address] [place] [address]. [place] [address] [place] [address] Care Team Providers Care Packaging Coordinator Name Role Phone Mary Fabian MD Primary Care Provider [phone] Reason for Visit * Auth/Cert Specialty Diagnoses / Procedures Referred By Contac t Referred To Contact Diagnoses Lumbar radiculopathy Procedures INJECTION EPIDURAL TRANSFORAMINAL L4-5, L5-S1 Referral ID Status Reason Start Date Expiration Date Visits Re quested Visits Authorized [id number] 1 1 Encounter Details Date Type Department Care Team (Late st Contact Info) Description 12/16/2020 11:00 AM CDT - 12/16/2020 11:20 AM CDT Surgery [facility] [place] [address] [id number] Izabela Navarro MD [facility] [address] [place] [address] INJECTION EPIDURAL TRANSFORAMINAL L4-5, L5-S1 Surgery Details Date/Time Status Location OR Service Patient Class Case Class Case Type Trauma Case? 12/16/2020 11:00 AM Posted [facility] Pain Proc Rm Pain Medicine Short Stay/Outpa tient Surgery No Panel 1 Procedure LRB Anes Op Region Wound Class Comments INJECTION EPIDURAL TRANSFORAMINAL L4-5, L5-S1 Left Local Spine Lumbar Clean LEFT TFESI NO BLD THIN REF DR Adrienne FABIAN SCHED LS 12/11/20 [facility] Surgeon Surgeon Role Service Panel Izabela Navarro MD Primary Pain Medicine 1 documented in this encounter Social History Tobacco Use Types Packs/Day Years [...] have Coronavirus / COVID-19? No / Unsure 12/16/2020 9:19 AM CDT documented as of this encounter Last Filed Vital Signs Vital Sign Reading Time Taken Comments Blood Pressure 123/78 12/16/2020 10:30 AM CDT Pulse 79 12/16/2020 10:30 AM CDT Temperature 36.8 ??C (98.2 ??F) 12/16/2020 9:57 AM CD T Respiratory Rate 16 12/16/2020 10:30 AM CDT Oxygen Saturation 96% 12/16/2020 10:30 AM CDT Inhaled Oxygen Concentration - - Weight - - Height - - Body Mass Index - - documented in this encounter Discharge Instructions * Discharge Instructions* Steffanie Bergman RN - 12/16/2020 10:39 AM CDT [facility] Interventional Pain Management Discharge Instructions ANY NEW BOWEL OR BLADDER INCONTINENCE ISSUES OR NUMBNESS TO PELVIC REGION PLEASE GO TO THE EMERGENCY ROOM IMMEDIATELY! WHAT TO DO TODAY: - Limit your activity today, but bedrest is not required - You may resume your normal activity tomorrow as tolerated - Do not drive a vehicle or operate hazardous equipment for the first 24 hours after your procedure. - You may experience numbness, tingling, and weakness in your extremities for several hours after your injection. Please be careful when walking or standing so you do not fall. - You may remove your bandage in the morning and you may shower. WHAT TO EXPECT OVER THE NEXT FEW DAYS TO A WEEK: - Any weakness or tingling typically wears off after several hours but you may have some tingling for several days after some injections - It is normal that once the numbing medicine wears off that you could be sore for several days before you notice relief. Pain should get better day by day. - The steroid will start working after 2-3 days and can take up to 2 weeks for it to fully work. - Everyone has different response to the injection depending on the amount of inflammation and diagnosis. HOW TO CONTROL YOUR PAIN: - Injection site soreness is normal and will subside in a few days. We suggest ice packs to the injection site for 10-20 at a time ever 2-3 hours. After 24 hours you may use heat if preferred or you may alternate heat and ice. - Your pain may be worse for a couple of days; you may use any medications that you were using before your visit. You may also use Tylenol, Motrin or Aleve if not contraindicated by your Primary CarePhysician. If you no longer have any prescribed medicine, please get your refill from the physicianwho fist prescribed it for you. - For patients who had a Radiofrequency Ablation your pain could last for up to 2 weeks. - We are an Interventional pain management. We do not prescribe pain medicine. COMMON SIDE EFFECTS OF STEROIDS: - You may experience warm, flushing sensation with redness in your face, neck and chest. - You may feel anxious, jittery, irritable or have trouble sleeping. - You may have increased hunger or menstrual changes (for women). - If you are a diabetic you may have increased blood sugars. If you do and are unable to control please call your doctor who manages your diabetes. - All side effects are temporary and should subside in approximately a week. WHEN TO CALL THE DOCTOR AND HOW TO REACH US: Call [phone] ext. [phone] for scheduling, insurance questions or speak with a nurse. Our hours are Wednesday- 8:00am-4:00pm ??? Call the number above for any bleeding/drainage/redness/swelling at the injection site, severe pain, persistent chills, fever over 101 or greater, or new or different pain or numbness. If you areunable to reach us call 911 or go to the nearest emergency room. ??? If you have shortness of breath, fast heart rate, throat/tongue swelling call 911 or go to the nearest emergency room. FOR YOUR NEXT INJECTION APPOINTMENT. Please do not eat or drink anything for 4 hours prior to your appointment. Please have responsible adult with you and someone to drive you home Please shower prior to procedure to help prevent infection. Please no perfumes or scented lotions on day of your procedure. You May wear deodorant. You may take all your medications as prescribed with sips of water. documented in this encounter Medications at Time of Discharge aspirin EC 81 MG tablet Take 81 mg by mouth every morning. calcium-vitamin D 250-125 MG-UNIT tablet Take 1 tablet by mouth daily. ibandronate 150 MG tablet 12/13/2020 metoprolol succinate ER 25 MG 24 hr tablet Take 25 mg by mouth every morning. 07/19/2019 Multiple Vitamin (MULTIVITAMIN) capsule Take 1 capsule by mouth daily. alendronate 70 MG tablet Take 1 tablet by mouth weekly. 03/28/2019 2 atorvastatin 10 MG tablet Take 10 mg by mouth daily. 07/19/2019 2 clarithromycin 500 MG tablet 11/01/2020 2 diazePAM 5 MG tabletIndications:L umbar radiculopathy Take 1 tablet (5 mg total) by mouth once for 1 dose. Take 1 tabs po 1 hour prior to procedure 1 tablet 12/16/2020 1 diazePAM 5 MG tabletIndications:L umbar radiculopathy Take 1 tablet (5 mg total) by mouth once for 1 dose. Take 1 tabs po 1 hour prior to procedure 1 tablet 01/09/2021 1 folic acid 800 MCG tablet Take 400 mcg by mouth every morning. 2 traMADol 50 MG tablet Take 50 mg by mouth. 11/22/2020 2 documented as of this encounter H&P Notes * Izabela Navarro MD - 12/16/2020 10:08 AM CDT HISTORY AND PHYSICAL INTERVAL NOTE: I have reviewed Dottie Bryant History & Physical which was performed within the past 30 days. After examining Dottie Bryant, no change has occurred in the patient's condition since the H&P was completed. Informed Consent Discussion: Risks, benefits, alternatives as well as the consequences of not performing the surgery/procedure were discussed with the patient and/or family/personal medical field representative. Questions were answered and the patient/family/personal medical field representative verbalized understanding and desires to proceed. Previous Adverse Experience with Sedation, Analgesia, or Anesthesia? No Risk benefits and alternate treatments were discussed. Signed: IZABELA NAVARRO MD 10:08 AM Source Note - MAKAYLA Baca - 12/11/2020 9:30 AM CDT Summary: Left low back pain that radiates to the left lateral buttock and left groin Interventional Pain Management History & Physical Referring Provider: Mary Fabian MD Chief Complaint: Left low back pain that radiates to the left lateral buttock and left groin HPI: Dottie Bryant is a 75-year-old female who is seen today as a new patient as referred by Mary Fabian MD. She has been experiencing left low back pain that radiates to the left lateral buttock and left groin. She does have a history of low back pain, said that she underwent lumbar epidural steroid injections in approximately 2010 at [facility], which provided long- lasting improvement, states years . Most recent onset of her pain began 5 months ago. She said the pain began suddenly, denies trauma. She rates her pain today as 4 on a 0-to-10 scale, with an overall average of 9 on a 0-to-10 scale pain level. She describes her pain as shooting, throbbing, aching, sharp, severe, i ntermittent, worsening over time. She does report some weakness of the left gluteal region and of the left low back. She denies urinary or bowel dysfunction, denies anesthesia the saddle region. She said her pain is worsened with exercise, taking stairs, driving, touch. Factors that relieve the pain include sitting, lying down, walking, standing. She said that she frequently applies pressure to the lateral left buttock and at times to the left groin, which has also provided some relief of her pain. Previous treatments tried: She underwent critical care unit manager at [facility] in [place], [place] 3 to 4 years ago, did notice some temporary improvement with the treatments. She received epidural steroid injections at [facility] 10 to 11 years ago, which she said provided benefit lasted for years. Medications tried for pain relief: She has gotten relief with tramadol. She also tried a Medrol Dosepak within the last month, which she said was helpful. Past Medical History: Diagnosis Date ??? Arthritis ??? Essential hypertension ??? Hoarseness ??? Hypercholesteremia ??? Syncopal episodes Past Surgical History: Procedure Laterality Date ??? [...] file Tobacco Use ??? Smoking status: Never Smoker ??? Smokeless tobacco: Never Used Substance and Sexual Activity ??? Alcohol use: [...] Social Determinants of Health Financial Resource Strain: ??? Difficulty of Paying Living Expenses: Food Insecurity: ??? Worried About Running Out of Food in the Last Year: ??? Ran Out of Food in the Last Year: Transportation Needs: ??? Lack of Transportation (Medical): ??? Lack of Transportation (Non-Medical): Physical Activity: ??? Days of Exercise per Week: ??? Minutes of Exercise per Session: Stress: ??? Feeling of Stress : Social Connections: ??? Frequency of Communication with Friends and Family: ??? Frequency of Social Gatherings with Friends and Family: ??? Attends Yazdanism Services: ??? Active Member of Clubs or Organizations: ??? Attends Club or Organization Meetings: ??? Marital Status: Intimate Partner Violence: ??? Fear of Current or Ex-Partner: ??? Emotionally Abused: ??? Physically Abused: ??? Sexually Abused: Family History Problem Relation Name Age of Onset ??? Heart Attack Mother ??? Heart Attack Father Review of Systems Constitutional: Negative. HENT: Negative. Eyes: Negative. Respiratory: Negative. Cardiovascular: Is status post cardiac ablation completed by Dr. Garrett last year. She continues to follow-up with , states next appointment with him is in May 2021. Gastrointestinal: Denies incontinence of bowels Endocrine: Negative. Genitourinary: Denies urinary incontinence Musculoskeletal: Low back pain that radiates left lateral buttock and left groin. Right foot pain, follows with supervisor frame assembly Obi Gabriel MD, has undergone injections the foot the past, said the most recent injection was 3 to 4 months ago. Skin: Negative. Allergic/Immunologic: Negative. Neurological: She reports some episodes of dizziness, was advised to follow-up to discuss with PCP. Hematological: Negative. Psychiatric/Behavioral: Denies suicidal ideation. Filed Vitals: 12/11/20 0845 12/11/20 0856 BP: (!) 148/94 148/81 Pulse: 80 Resp: 20 Temp: 98.6 ??F (37 ??C) TempSrc: Skin SpO2: 100% Weight: 49 kg (108 lb) Height: 5' 3 (1.6 m) Diagnostic Workup: She had an x-ray of the sacroiliac joints on 11/08/2020 [facility]. The radiologist report was reviewed and is [...] Jasen Quick M.D. ML: ALYSON Report ID: [id number] Reading Location: [place] [address] She had an MRI of the lumbar spine on 12/06/2020. The radiologist report was reviewed and is copied below: FINDINGS: There are 5 lumbar type vertebral bodies designated as L1 through L5; using this numbering system, the conus medullaris terminates at L2 and appears unremarkable. Mid lumbar levoscoliosis. There is multilevel grade 1 retrolisthesis of T12 on L1 through L3 on L4.There is grade 1 anterolisthesis of L4 on L5. Otherwise the lumbar vertebral alignment, vertebral body heights, and facet alignment are maintained. Multilevel degenerative changes are seen in the lower thoracic and lumbar levels with disc degeneration, endplate osteophytes, ligamentum flavum thickening, and facet hypertrophy noted. Multilevel disc desiccation. Greatest loss of disc height at T12-L1, L1-L2, and L5-S1. Likely reactive/degenerative edema seen along the T12-L2 and L5-S1 endplates. Imaged portions of the soft tissues reveal no acute findings. T10-T11 and T11-T12: Small disc bulges, evaluated only on sagittal images. T12-L1: Retrolisthesis. Disc bulge. Small left central/subarticular protrusion. Mild ligamentous/facet hypertrophy. Flattening of the left ventral thecal sac. No significant canal or foraminal narrowing. L1-L2: Retrolisthesis. Disc bulge. Posterior and marginal endplate osteophytes. Ligamentous/facet hypertrophy. Flattening of the ventral thecal sac, more so on the left. Minimal canal stenosis. Moderate to severe left foraminal narrowing. L2-L3: Listhesis. Disc bulge with extension into the foramina. Ligamentum flavum thickening. Facet hypertrophy. Posterior and marginal endplate osteophytes. Mild canal stenosis. Mild left foraminal narrowing. L3-L4: Slight retrolisthesis. Disc bulge with extension into the foramina. Posterior and marginal endplate osteophytes. Ligamentum flavum thickening. Facet hypertrophy. Bilateral lateral recess and mild canal stenosis. Moderate to severe right and mild left foraminal narrowing. L4-L5: Anterolisthesis and disc uncovering. Disc bulge with extension into the foramina. Marginal endplate osteophytes. Superimposed right foraminal protrusion. Ligamentum flavum thickening. Prominent facet arthropathy. Bilateral lateral recess and mild to moderate canal stenosis. Mild to moderate foraminal narrowing. L5-S1: Disc bulge with extension into the foramina. Posterior and marginal endplate osteophytes. Ligamentum flavum thickening. Prominent facet arthropathy. Left greater the right lateral recess and mild to moderate canal stenosis. Moderate to severe [...] levoscoliosis and multilevel listheses as detailed above. Referred By: MARY FABIAN Interpreted By: Kevin Xiao MD, 12/09/2020 11:54 AM This note is been addended by Maribel Qureshi APN on 12/11/2020 at 12:49 PM to state that patient had a left hip x-ray on 12/11/2020, radiologist's report is been received and reviewed and is copied below: DISCUSSION and [...] Interpreted By: Chauncey Sanches, 12/11/2020 11:01 AM Physical Exam Body mass index is 19.13 kg/m??. The patient is alert and oriented [...] to deep palpation across the lumbar facets. No pain to palpation of the SI joints. She does experience some significant tenderness palpation of the lateral left gluteal region, mid and superior aspect, as well as pain to palpation posterior to the left greater trochanter. Range of motion of the left hip is within normal limits with extension, flexion, abduction abduction. She denies pain to palpation over the left greater trochanter, but does report tenderness palpation of the posterior right hip joint line. Range of motion of her back is limited with extension, forward flexion and left and right lateral rotation. Sitting straight leg lift is negative bilaterally. Motor strength to lower extremities is 5/5 with hip flexion, knee extension and flexion, ankle dorsiflexion, plantar flexion and hallux extension bilaterally. No color change, redness, warmth, edema or discrepancy in calf size notedto the lower extremities. Sensation to palpation of the lower extremities is equal and intact bilaterally. No clonus and downgoing Babinski's bilaterally. Patellar and achilles reflexes are 2/4 bilaterally. Posterior tibial pulses are +2 bilaterally. Capillary refill of the lower extremities is less than 3 seconds bilaterally. Impression: Lumbar radiculopathy Recommendations: I spent 45 minutes today reviewing the patient's medical record, obtaining history, performing an exam, ordering medications, tests, and/or procedures, documenting in the medical record, counseling and educating the patient/family/caregiver, reviewing and communicating test results and coordinationof care.her Juan was with her during the office encounter. She has been experiencing left low back pain that radiates left lateral buttock and left groin. We discussed a left L4-5, 5 S1 lumbar transforaminal epidural steroid injection as a treatment option. The procedure was described in detail as were the risks, benefits and alternative treatments, and she verbalized understanding. Risks including, but not limited to infection, permanent neurological deficit due to nerve root injury, bleeding, anaphylaxis, flushing, cerebral spinal fluid leak, paralysis, spinal cord injury, thinningof the skin, thinning of the bones, elevations of blood glucose levels, muscle cramping, were reviewed with her and she verbalized understanding. She is agreeable to a plan to move forward with the the lumbar transforaminal epidural steroid injection procedure, which will be completed by Dr. Clay her next office visit. She has been provided with a prescription for an x-ray of the left hip. It was my pleasure to participate in her care. Thank you for referring this very pleasant patient. This note is been addended by Maribel Qureshi NP on 12/11/2020 12:49 PM to state that contacted patient via telephone to discuss findings of 12/11/2020 hip x-ray. No changes in treatment plan. MAKAYLA BACA CC: Mary Fabian MD Cosigned by Izabela Navarro MD at 12/12/2020 9:34 AM CDT documented in this encounter OR Notes * Op Note - Izabela Navarro MD - 12/16/2020 10:34 AM CDT PROCEDURE: LUMBAR TRANSFORAMINAL EPIDURAL STEROID INJECTION UNDER FLUOROSCOPY LEVELS: Left L4-5 and L5-S1 PREOPERATIVE DIAGNOSIS: LUMBAR RADICULOPATHY POSTOPERATIVE DIAGNOSIS: SAME [...] OBLIQUE X RAY VIEW. TARGET FOR L 4-5 L5-S1 NERVE ROOT IS THE 6 O???CLOCK POSITION OF THE PEDICLE SHADOW IN THE OBLIQUE X RAY VIEW AT THE LEVEL OF L 4-5 L5-S1 ON THE Left SIDE. APPROPRIATE NEEDLE TIP POSITION WAS CONFIRMED [...] IN STABLE CONDITION WITH APPROPRIATE POST-PROCEDURE INSTRUCTIONS. PATIENT WILL BE CALLED OVER THE NEXT FEW DAYS FOR FOLLOWUP. documented in this encounter Plan of Treatment Upcoming Encounters Date Type Department Care Team (Late st Contact Info) Description 02/05/2025 10:00 AM CONSULTING BUSINESS DEVELOPER Office Visit [facility], [address] [place], [place] [id number] Stuart Garrett MD [facility]. [address] [place] [address] documented as of this encounter Procedures Procedure Name Priority Date/Time Associated Diagnosis Comments INJECTION EPIDURAL TRANSFORAMINAL 12/16/2020 10:23 AM CDT Lumbar radiculopathy XR PAIN CLINIC C-ARM Today 12/16/2020 9:34 AM CDT documented in this encounter Results * XR PAIN CLINIC C-ARM (12/16/2020 9:34 AM CDT) Narrative Radiology, Technologist - 12/16/2020 9:34 AM CDT This report does not contain a radiologist's interpretation. Please review associated procedure and/or operative report. Izabela Navarro MD GENERAL IMAGING Final Result documented in this encounter Visit Diagnoses Not on filedocumented in this encounter Administered Medications Inactive Administered Medications - up to 3 most recent administrations Medication Order MAR Action Action Date Dose Rate Site BUpivacaine (MARCAINE) 0.25 % injection As needed, Starting on Wed12/16/20 at 1030, Until Wed12/16/20 at 1033, Intra-Op Given 12/16/2020 10:30 AM CDT 2 mLs Lumbar Spine chlorhexidine (PERIDEX) 0.12 % solution 15 mL 15 mL, Mouth/Throat, PRN, Prior to surgery, 1 dose, Starting on Wed12/16/20 at 1004, Until Wed12/16/20 at 1240, Patient to perform oral care first. Swish/Gargle in mouth for 30 seconds, and then discard, prior to going to surgery/ If ventilated use saturated swab to clean oral cavity., Pre-Op iopamidol (ISOVUE-M 300) 61 % injection As needed, Starting on Wed12/16/20 at 1028, Until Wed12/16/20 at 1033, Intra-Op Given 12/16/2020 10:28 AM CDT 5 mLs Lumbar Spine lidocaine (PF) (XYLOCAINE) 1 % injection As needed, Starting on Wed12/16/20 at 1026, Until Wed12/16/20 at 1033, Intra-Op Given 12/16/2020 10:28 AM CDT 2 mLs Back methylPREDNISolone acetate (DEPO-Medrol) injection As needed, Starting on Wed12/16/20 at 1030, Until Wed12/16/20 at 1033, Intra-Op Given 12/16/2020 10:30 AM CDT 80 mg Lumbar Spine documented in this encounter Active and Recently Administered Medications Times are shown in CDT. PRN Medication Order 12/14/2020 12/15/2020 12/16/2020 BUpivacaine (MARCAINE) 0.25 % injection (CANCELED) As needed, Starting on Wed12/16/20 at 1030, Until Wed12/16/20 at 1033, Intra-Op 1030 (Given - Provid er: Izabela Navarro MD) chlorhexidine (PERIDEX) 0.12 % solution 15 mL 15 mL, Mouth/Throat, PRN, Prior to surgery, 1 dose, Starting on Wed12/16/20 at 1004, Until Wed12/16/20 at 1240, Patient to perform oral care first. Swish/Gargle in mouth for 30 seconds, and then discard, prior to going to surgery/ If ventilated use saturated swab to clean oral cavity., Pre-Op iopamidol (ISOVUE-M 300) 61 % injection (CANCELED) As needed, Starting on Wed12/16/20 at 1028, Until Wed12/16/20 at 1033, Intra-Op 1028 (Given - Provid er: Izabela Navarro MD) lidocaine (PF) (XYLOCAINE) 1 % injection (CANCELED) As needed, Starting on Wed12/16/20 at 1026, Until Wed12/16/20 at 1033, Intra-Op 1028 (Given - Provid er: Izabela Navarro MD) methylPREDNISolone acetate (DEPO-Medrol) injection (CANCELED) As needed, Starting on Wed12/16/20 at 1030, Until Wed12/16/20 at 1033, Intra-Op 1030 (Given - Provid er: Izabela Nvaarro MD) documented in this encounter Care Teams Packaging Coordinator Relationship Specialty Start Date End Date Mary Fabian MD [address] [place], [place] [id number] PCP - General FAMILY PRACTICE 08/25/19 documented as of this encounter
--- OUTSIDE RECORDS SUMMARY | 2024-03-18 22:35 | XMS_ITS | Encounter Summary ---
Author Organization [facility] Address [address] [place] [address]. [place] [address] [place] [address] Care Team Providers Care Rn Mds Coordinator Name Role Phone Beau Clement MD Primary Care Provider [phone] Encounter Details Date Type Department Care Team (Latest Contact Info) Description 01/31/2024 Travel Social History Tobacco Use Types Packs/Day [...] st Contact Info) Description 02/05/2025 10:00 AM MICA PATCHER Office Visit [facility] [address] [place], [place] [phone] Stuart Garrett MD [facility]. [facility] [address] [place], [place] [phone] documented as of this encounter Visit Diagnoses Not on filedocumented in this encounter Care Teams Rn Mds Coordinator Relationship Specialty Start Date End Date Beau Clement MD [address] [place] [address] PCP - General FAMILY PRACTICE 08/25/19 documented as of this encounter
--- OUTSIDE RECORDS SUMMARY | 2024-03-18 22:35 | XMS_ITS | Encounter Summary ---
Author Organization [facility] Address [address] [place] [address]. [place] [address] [place] [address] Care Team Providers Care Conference Organizer Name Role Phone Beau Clement MD Primary Care Provider [phone] Reason for Referral * Surgical (Routine) - Closed Specialty Diagnoses / Procedures Referred By Dede t Referred To Contact Diagnoses Lumbar radiculopathy Procedures Case request operating room: INJECTION EPIDURAL TRANSFORAMINAL L1-2, L2-3 Maribel Qureshi APNP Phone: tel: fax: Referral ID Status Reason Start Date Expiration Date Visits Re quested Visits Authorized [id number] Closed 02/25/2022 02/25/2023 1 1 ER HARVESTER Encounter Details Date Type Department Care Team (Late st Contact Info) Description 02/25/2022 Prep for Procedure [facility] [place] [address] [id number] Maribel Qureshi APNP [address] [place] [phone] Social History Tobacco Use Types Packs/Day Years [...] Coronavirus/COVID-19? No / Unsure 02/25/2022 6:57 AM OYSTER HARVESTER documented as of this encounter Plan of Treatment Upcoming Encounters Date Type Department Care Team (Late st Contact Info) Description 02/05/2025 10:00 AM OYSTER HARVESTER Office Visit [facility], [facility] [address] [place], [place] [phone] Stuart Garrett MD [facility]. [facility] [address] [place] [address] Scheduled Orders Name Type Priority Associated Diagnoses Orde r Schedule Case request operating room: INJECTION EPIDURAL TRANSFORAMINAL L1-2, L2-3 Case Request Routine Lumbar radiculopathy Once for 1 Occurrences starting 02/25/2022 until 02/25/2022 documented as of this encounter Visit Diagnoses Diagnosis Lumbar radiculopathy- Primary Thoracic or lumbosacral neuritis or radiculitis, unspecified documented in this encounter Care Teams Conference Organizer Relationship Specialty Start Date End Date Beau Clement MD [address] [place], [place] [phone] PCP - General FAMILY PRACTICE 08/25/19 documented as of this encounter
--- OUTSIDE RECORDS SUMMARY | 2024-03-18 22:35 | XMS_ITS | Encounter Summary ---
Author Organization [facility] Address [address] [place] [address]. [place] [address] [place] [address] Care Team Providers Care Flexographic Press Operator Name Role Phone Beau Clement MD Primary Care Provider [phone] Encounter Details Date Type Department Care Team (Late st Contact Info) Description 05/21/2021 Orders Only [facility] [address] [place], [place] [address] Theodora Dawson, [facility] Social History Tobacco Use Types Packs/Day Years [...] st Contact Info) Description 02/05/2025 10:00 AM BLISS PRESS OPERATOR Office Visit [facility], [facility] [address] [place], [place] [phone] Stuart Garrett MD [facility]. [facility] [address] [place], [place] [phone] documented as of this encounter Visit Diagnoses Not on filedocumented in this encounter Care Teams Flexographic Press Operator Relationship Specialty Start Date End Date Beau Clement MD [address] [place], [place] [phone] PCP - General FAMILY PRACTICE 08/25/19 documented as of this encounter
--- OUTSIDE RECORDS SUMMARY | 2024-03-18 22:35 | XMS_ITS | Encounter Summary ---
Author Organization [facility] Address [address] [place] [address]. [place] [address] [place] [address] Care Team Providers Care Electrician Technician Name Role Phone Mary Fabian MD Primary Care Provider + [phone] Reason for Visit * Auth/Cert (Routine) Specialty Diagnoses / Procedures Referred By Sheridanac t Referred To Contact Diagnoses Lumbar radiculopathy lumbar radiculopathy Procedures INJECTION EPIDURAL TRANSFORAMINAL L1-2, L2-[address] [facility] [address] [place] [address] Phone: tel: fax: Referral ID Status Reason Start Date Expiration Date Visits Re quested Visits Authorized [id number] 1 1 Encounter Details Date Type Department Care Team (Late st Contact Info) Description 02/26/2022 7:40 AM ACCOUNTS CLERK - 02/26/2022 8:00 AM ACCOUNTS CLERK Surgery [facility] [address] [place], [place] [phone] [id number] Izabela Mccurdy MD [facility] [address] [place] [phone] INJECTION EPIDURAL TRANSFORAMINAL L1-2, L2-3 Surgery Details Date/Time Status Location OR Service Patient Class Case Class Case Type Trauma Case? 02/26/2022 7:40 AM Posted [facility] Pain Proc Rm Pain Medicine Short Stay/Outpa tient Surgery No Panel 1 Procedure LRB Anes Op Region Wound Class Comments INJECTION EPIDURAL TRANSFORAMINAL L1-2, L2-3 Left Local Spine Lumbar Clean TFESI - returning patient no blood thinners dr ramirez Sebastian [facility] scheduled 02/25/22 [facility] Surgeon Surgeon Role Service Panel Izabela Mccurdy MD Primary Pain Medicine 1 documented in [...] Coronavirus/COVID-19? No / Unsure 02/25/2022 6:57 AM ACCOUNTS CLERK documented as of this encounter Last Filed Vital Signs Vital Sign Reading Time Taken Comments Blood Pressure 160/75 02/26/2022 7:55 AM ACCOUNTS CLERK Pulse 65 02/26/2022 7:55 AM ACCOUNTS CLERK Temperature 36.6 ??C (97.9 ??F) 02/26/2022 7:00 AM CS T Respiratory Rate 20 02/26/2022 7:55 AM ACCOUNTS CLERK Oxygen Saturation 97% 02/26/2022 7:55 AM ACCOUNTS CLERK Inhaled Oxygen Concentration - - Weight 44 kg (97 lb) 02/26/2022 7:00 AM ACCOUNTS CLERK Height 165.1 cm (5' 5 ) 02/26/2022 7:00 AM ACCOUNTS CLERK Body Mass Index 16.14 02/26/2022 7:00 AM ACCOUNTS CLERK documented in this encounter Discharge Instructions * Discharge Instructions* Steffanie Bergman RN - 02/26/2022 7:13 AM ACCOUNTS CLERK If you have the following insurances, please read CAREFULLY. Medicare and any Medicare replacement plans (Aetna Medicare, BCBS Medicare, Essence, Humana Choice,Rail[employer] Medicare, [facility] Medicare solutions, AARP, ) Your insurance recommends [...] call our office to discuss with anurse. [place] Interventional Pain Management Discharge Instructions WHAT TO [...] DOCTOR AND HOW TO REACH US: Call [phone] for scheduling, insurance questions or speak with [...] PLEASE GO TO THE EMERGENCY ROOM IMMEDIATELY! UNTS CLERK documented in this encounter Medications at Time [...] of this encounter H&P Notes * Izabela Mccurdy MD - 02/26/2022 7:56 AM CST HISTORY [...] were discussed with the patient and/or family/personal construction sales representative. Questions were answered and the patient/family/personal construction sales representative verbalized understanding and desires to proceed. Previous Adverse Experience with Sedation, Analgesia, or Anesthesia? No Risk benefits and alternate treatments were discussed. Signed: IZABELA MCCURDY MD 7:56 AM UNTS CLERK Source Note - Maribel GloverhrieMAKAYLA - 02/25/2022 8:00 AM ACCOUNTS CLERK Summary: Pain to the left groin, left [...] recent trauma. She did undergo evaluation at [facility] for left groin pain on 02/09/2022, [...] region. She does mention she follows with projector operator Obi Gabriel MD, will be undergoing foot [...] TIa follows with neurologist, Dr. Guillaume at [facility]. Hematological: Negative. Psychiatric/Behavioral: Negative. Filed Vitals: 02/25/22 [...] x-ray of the sacroiliac joints on 11/08/2020 [facility]. The radiologist report was reviewed and [...] Jasen Quick M.D. ML: ALYSON Report ID: [id number] Reading Location: [place] [address] ? She had an MRI of the [...] CT of the abdomen on 02/09/2022 at [facility]. Radiologist report was reviewed and is copied [...] Findings Committee. J Am Andrew Radiol. 2017 Oct;14(8):0735-8909. THIS IS AN ELECTRONICALLY VERIFIED FINAL REPORT 02/09/2022 3:32 PM - Electronically signed by ??Felipe CALLAHAN D: ??02/09/2022 3:32 PM T: Report ID: [id number] Reading Location: ??[id number] Physical Exam Body mass index is 16.24 [...] procedure, which will be completed by Dr. Mccurdy at her next office visit. It was my pleasure to participate in her care. Thank you for referring this very pleasant patient. MAKAYLA BACA CC: Mary Fabian MD Cosigned by Izabela Mccurdy MD at 02/26/2022 7:55 AM ACCOUNTS CLERK UNTS CLERK UNTS CLERK documented in this encounter OR Notes * Op Note - Izabela Mccurdy MD - 02/26/2022 8:07 AM CST PROCEDURE: LUMBAR TRANSFORAMINAL EPIDURAL STEROID INJECTION UNDER FLUOROSCOPY LEVELS: LEFT L1-2 AND L2-3 PREOPERATIVE DIAGNOSIS: LUMBAR RADICULOPATHY POSTOPERATIVE DIAGNOSIS: SAME PREOP SURGEON: IZABELA MCCURDY MD RISKS, BENEFITS, ALTERNATE TREATMENTS DISCUSSED. WRITTEN [...] IN STABLE CONDITION WITH APPROPRIATE POST-PROCEDURE INSTRUCTIONS. UNTS CLERK documented in this encounter Plan of Treatment Upcoming Encounters Date Type Department Care Team (Late st Contact Info) Description 02/05/2025 10:00 AM ACCOUNTS CLERK Office Visit [facility], [facility] [address] [place], [place] [phone] Stuart Garrett MD [facility]. [facility] [address] [place], [place] [phone] documented as of this encounter Procedures Procedure Name Priority Date/Time Associated Diagnosis Comments INJECTION EPIDURAL TRANSFORAMINAL 02/26/2022 7:53 AM ACCOUNTS CLERK Lumbar radiculopathy XR PAIN CLINIC C-ARM Today 02/26/2022 7:34 AM ACCOUNTS CLERK documented in this encounter Results * XR PAIN CLINIC C-ARM (02/26/2022 7:34 AM ACCOUNTS CLERK) Narrative Radiology, Technologist - 02/26/2022 7:34 AM ACCOUNTS CLERK This report does not contain a radiologist's interpretation. Please review associated procedure and/or operative report. us Izabela Mccurdy MD GENERAL IMAGING Final Result documented in [...] Action Action Date Dose Rate Site BUpivacaine (PF) (MARCAINE) 0.25 % injection As needed, Starting on Charmaine 02/26/22 at 0804, Until Charmaine 02/26/22 at 0805, Intra-Op Given 02/26/2022 8:04 AM ACCOUNTS CLERK 2 mLs Opera tive Site chlorhexidine (PERIDEX) 0.12 % solution 15 [...] 61 % injection As needed, Starting on Charmaine 02/26/22 at 0803, Until Charmaine 02/26/22 at 0805, Intra-Op Given 02/26/2022 8:03 AM ACCOUNTS CLERK 5 mLs Opera tive Site lidocaine (PF) (XYLOCAINE) 1 % injection As needed, Starting on Charmaine 02/26/22 at 0800, Until Charmaine 02/26/22 at 0805, Intra-Op Given 02/26/2022 8:00 AM ACCOUNTS CLERK 2 mLs Back methylPREDNISolone acetate (DEPO-Medrol) injection As needed, Starting on Charmaine 02/26/22 at 0804, Until Charmaine 02/26/22 at 0805, Intra-Op Given 02/26/2022 8:04 AM ACCOUNTS CLERK 80 mg Opera tive Site documented in this encounter Active and Recently Administered Medications Times are shown in ACCOUNTS CLERK. PRN Medication Order 02/24/2022 02/25/2022 02/26/2022 BUpivacaine (PF) (MARCAINE) 0.25 % injection (CANCELED) As needed, Starting on Charmaine 02/26/22 at 0804, Until Charmaine 02/26/22 at 0805, Intra-Op 0804 (Given - Provid er: Izabela Mccurdy MD) chlorhexidine (PERIDEX) 0.12 % solution 15 [...] Intra-Op 0803 (Given - Provid er: Izabela Mccurdy MD) lidocaine (PF) (XYLOCAINE) 1 % injection (CANCELED) As needed, Starting on Charmaine 02/26/22 at 0800, Until Charmaine 02/26/22 at 0805, Intra-Op 0800 (Given - Provid er: Izabela Mccurdy MD) methylPREDNISolone acetate (DEPO-Medrol) injection (CANCELED) As needed, Starting on Charmaine 02/26/22 at 0804, Until Charmaine 02/26/22 at 0805, Intra-Op 0804 (Given - Provid er: Izabela Mccurdy MD) documented in this encounter Care Teams Electrician Technician Relationship Specialty Start Date End Date Mary Fabian MD [address] [place], [place] [phone] PCP - General FAMILY PRACTICE 08/25/19 documented as of this encounter
--- OUTSIDE RECORDS SUMMARY | 2024-03-18 22:35 | XMS_ITS | Encounter Summary ---
Author Organization [facility] Address [address] [place] [address]. [place] [address] [place] [address] Care Team Providers Care Bicycle Repair Technician Name Role Phone Beau Clement MD Primary Care Provider + [phone] Encounter Details Date Type Department Care Team (Latest Contact Info) Description 05/25/2021 Travel Social History Tobacco Use Types Packs/Day [...] suspected to have Coronavirus/COVID-19? No / Unsure 05/25/2021 10:19 AM CDT documented as of this encounter Plan of Treatment Upcoming Encounters Date Type Department Care Team (Late st Contact Info) Description 02/05/2025 10:00 AM INVOICE CONTROL CLERK Office Visit [facility], [place] [address] [place] [address] Stuart Garrett MD [facility]. [facility] [address] [place], [place] [phone] documented as of this encounter Visit Diagnoses Not on filedocumented in this encounter Care Teams Bicycle Repair Technician Relationship Specialty Start Date End Date Beau Clement MD [address] [place] [address] PCP - General FAMILY PRACTICE 08/25/19 documented as of this encounter
--- OUTSIDE RECORDS SUMMARY | 2024-03-18 22:35 | XMS_ITS | Encounter Summary ---
Author Organization [facility] Address [address] [place] [address]. [place] [address] [place] [address] Care Team Providers Care Search Lead Name Role Phone Beau Clement MD Primary Care Provider + [phone] Encounter Details Date Type Department Care Team (Latest Contact Info) Description 12/16/2020 Travel Social History Tobacco Use Types Packs/Day [...] st Contact Info) Description 02/05/2025 10:00 AM DIESEL ENGINEER Office Visit [facility], [place] [address] [place] [address] Stuart Garrett MD [facility]. [facility] [address] [place] [address] documented as of this encounter Visit Diagnoses Not on filedocumented in this encounter Care Teams Search Lead Relationship Specialty Start Date End Date Beau Clement MD [address] [facility] [address] [place], [place] [phone] PCP - General FAMILY PRACTICE 08/25/19 documented as of this encounter
--- OUTSIDE RECORDS SUMMARY | 2024-03-18 22:35 | XMS_ITS | Encounter Summary ---
Author Organization [facility] Address [address] [place] [address]. [place] [address] [place] [address] Care Team Providers Care Residential Case Manager Name Role Phone Beau Clement MD Primary Care Provider + [phone] Encounter Details Date Type Department Care Team (Latest Contact Info) Description 01/02/2021 Travel Social History Tobacco Use Types Packs/Day [...] st Contact Info) Description 02/05/2025 10:00 AM DISTILLER Office Visit [facility], [place] [address] [place] [address] Stuart [facility] MD [facility]. [facility] [address] [place] [address] documented as of this encounter Visit Diagnoses Not on filedocumented in this encounter Care Teams Residential Case Manager Relationship Specialty Start Date End Date Beau Clement MD [address] [facility] [address] [place], [place] [phone] PCP - General FAMILY PRACTICE 08/25/19 documented as of this encounter
--- OUTSIDE RECORDS SUMMARY | 2024-03-18 22:35 | XMS_ITS | Encounter Summary ---
Author Organization [facility] Address [address] [place] [address]. [place], [place] [id number] [place] [id number] Care Team Providers Care Teletype Adjuster Name Role Phone Mary Fabian MD Primary Care Provider + [phone] Reason for Visit * Auth/Cert Specialty Diagnoses / Procedures Referred By Contac t Referred To Contact Diagnoses lum rad Procedures INJECTION EPIDURAL TRANSFORAMINAL l45 and l5s1 Referral ID Status Reason Start Date Expiration Date Visits Re quested Visits Authorized [id number] 1 1 Encounter Details Date Type Department Care Team (Latest Contact Info) Description 02/03/2021 8:28 AM [facility] - 02/03/2021 10:03 AM [facility] Hospital Encounter [facility] [place] [address] [id number] Kylie Navarro MD [facility] [address] [place] [address] Discharge Disposition: Home or Self Care (Routine [...] have Coronavirus / COVID-19? No / Unsure 02/03/2021 8:27 AM PHOTOGRAPHIC EQUIPMENT TECHNICIAN documented as of this encounter Last Filed Vital Signs Vital Sign Reading Time Taken Comments Blood Pressure 151/79 02/03/2021 9:45 AM PHOTOGRAPHIC EQUIPMENT TECHNICIAN Pulse 64 02/03/2021 9:45 AM PHOTOGRAPHIC EQUIPMENT TECHNICIAN Temperature 36.2 ??C (97.2 ??F) 02/03/2021 8:38 AM CS T Respiratory Rate 16 02/03/2021 9:45 AM PHOTOGRAPHIC EQUIPMENT TECHNICIAN Oxygen Saturation 99% 02/03/2021 9:45 AM PHOTOGRAPHIC EQUIPMENT TECHNICIAN Inhaled Oxygen Concentration - - Weight 49.2 kg (108 lb 6.4 oz) 02/03/2021 8:38 A M PHOTOGRAPHIC EQUIPMENT TECHNICIAN Height 160 cm (5' 3 ) 02/03/2021 8:38 AM PHOTOGRAPHIC EQUIPMENT TECHNICIAN Body Mass Index 19.2 02/03/2021 8:38 AM PHOTOGRAPHIC EQUIPMENT TECHNICIAN documented in this encounter Discharge Instructions * Discharge Instructions* Harper Hopkins RN - 02/03/2021 9:42 AM PHOTOGRAPHIC EQUIPMENT TECHNICIAN [place] Interventional Pain Management Discharge Instructions FOLLOW UP NEEDED, CALL FOR APPOINTMENT WHEN PAIN RETURNS AND PERISTS WHAT TO DO TODAY: - Limit your [...] DOCTOR AND HOW TO REACH US: Call [phone] ext. [phone] for scheduling, insurance questions or speak with [...] PLEASE GO TO THE EMERGENCY ROOM IMMEDIATELY! OGRAPHIC EQUIPMENT TECHNICIAN documented in this encounter Medications at Time [...] Take 1 tablet by mouth weekly. 03/28/2019 05/21/2021 atorvastatin 10 MG tablet Take 10 mg by mouth daily. 07/19/2019 02/26/2022 calcium carb-cholecalcife rol 250-125 MG-UNIT tablet Take 1 tablet by mouth daily. 02/26/2022 clarithromycin 500 MG tablet 11/01/2020 05/21/2021 folic acid 800 MCG tablet Take 400 mcg by mouth every morning. 05/26/2021 traMADol 50 MG tablet Take 50 mg by mouth. 11/22/2020 05/21/2021 documented as of this encounter H&P Notes * Kylie Navarro MD - 02/03/2021 9:10 AM CSTSummary: Low back pain that radiates the left groin and left lateral buttocks Admission Note CC: Low back pain that radiates the left groin and left lateral buttocks HPI: Dottie Victoria is a 75-year-old female patient seen today for follow-up for low back pain. She was last seen in this office on 01/09/2021. She underwent a second left L4-5, L5-S1 lumbar transforaminal epidural steroid injection at that time, reports an overall improvement of 75%. She does statesshe continues to experience low back pain that radiates left groin and left lateral buttock, particularly to the left groin. She said she had been experiencing some pain to the right groin, which hasresolved since she was last seen in this office. She states that the procedure was a God send . She denies urinary or bowel incontinence, denies anesthesia in the saddle region. She said that the left groin is particularly bothersome, said she rubs the left groin for relief. She has been using acetaminophen for pain relief. Prior to Admission medications Medication Sig Start Date End Date Taking? Authorizing Provider aspirin EC 81 MG tablet Take 81 mg by mouth every morning. Yes Doc Abstract atorvastatin 10 MG tablet Take 10 mg by mouth daily. 07/19/19 Yes Doc Abstract calcium carb-cholecalciferol 250-125 MG-UNIT tablet Take 1 tablet by mouth daily. Yes Doc Abstract calcium-vitamin D 250-125 MG-UNIT tablet Take 1 tablet by mouth daily. Yes Doc Abstract folic acid 800 MCG tablet Take 400 mcg by mouth every morning. Yes Doc Abstract ibandronate 150 MG tablet 12/13/20 Yes Doc Abstract metoprolol succinate ER 25 MG 24 hr tablet Take 25 mg by mouth every morning. 07/19/19 Yes Doc Abstract Multiple Vitamin (MULTIVITAMIN) capsule Take 1 capsule by mouth daily. Yes Doc Abstract alendronate 70 MG tablet Take 1 tablet by mouth weekly. 03/28/19 Doc Abstract clarithromycin 500 MG tablet 11/01/20 Doc Abstract traMADol 50 MG tablet Take 50 mg by mouth. 11/22/20 Doc Abstract Allergies Allergen Reactions ??? Celecoxib Other (see comment) Reaction: Past Medical History: Diagnosis Date ??? Arthritis ??? Essential hypertension ??? Hoarseness ??? Hypercholesteremia ??? Syncopal episodes ??? Weight loss Past Surgical History: Procedure Laterality Date ??? CATARACT EXTRACTION ??? SECTION X2 ??? HC CATHETER ABLATION NON-CARDIAC ENDO T1 ??? HC LIGATION/STRIP VARICOSE VEINS ??? SKIN TISSUE PROCEDURE UNLISTED Social History Socioeconomic History ??? Marital status: [...] file Intimate Partner Violence: Not on file Review of Systems: 12 point review of systems was reviewed and is negative other than the listed inthe HPI. She denies urinary or bowel incontinence, denies anesthesia in the saddle region. PHYSICAL EXAM Filed Vitals: 02/03/21 0838 BP: 141/63 Pulse: 109 Resp: 20 Temp: 97.2 ??F (36.2 ??C) TempSrc: Skin SpO2: 100% Weight: 49.2 kg (108 lb 6.4 oz) Height: 5' 3 (1.6 m) General: alert, appears stated age and cooperative. Body mass index is 19.2 kg/m??. Skin: normal and no rash or abnormalities HEENT: neck supple with midline trachea Lungs: no respiratory distress Heart: regular rate and rhythm Abdomen: soft Neuro: She rises from seated position without difficulty. She ambulates with a steady gait. She experiences tenderness palpation of the left SI joint. Sitting straight leg raise is negative bilaterally. Motor strength testing of lower extremities is 5/5 with hip flexion, knee extension, knee flexion, ankle dorsiflexion, plantar flexion bilaterally. She had an MRI of the lumbar [...] By: Kevin Xiao MD, 12/09/2020 11:54 AM ASSESSMENT Lumbar radiculopathy PLAN Dottie Victoria is a 75-year-old female patient seen today for follow-up for low back pain. She was last seen in this office on 01/09/2021. She underwent a second left L4-5, L5-S1 lumbar transforaminal epidural steroid injection at that time, reports an overall improvement of 75%. She does statesshe continues to experience low back pain that radiates left groin and left lateral buttock, particularly to the left groin. She said she had been experiencing some pain to the right groin, which hasresolved since she was last seen in this office. We discussed moving forward with a left L1-2, L5-S1 lumbar transforaminal epidural steroid injection procedure today. The procedure was described in detail as were the risks, benefits and alternative of treatments. Risks including, but not limited toinfection, permanent neurological deficit due to nerve root injury, bleeding, anaphylaxis, flushing, increased urinary frequency, cerebral spinal fluid leak, paralysis, spinal cord injury, thinning of the skin, elevations in blood glucose levels, thinning of the bones were reviewed with her, and she verbalized understanding. She is agreeable to plan to proceed with the lumbar transforaminal epidural steroid injection procedure today, follow-up as needed. Will consider left SI joint injection for her as a potential future treatment option. MAKAYLA BACA Patient seen agrees with plan of care OGRAPHIC EQUIPMENT TECHNICIAN OGRAPHIC EQUIPMENT TECHNICIAN OGRAPHIC EQUIPMENT TECHNICIAN documented in this encounter OR Notes * Op Note - Kylie Navarro MD - 02/03/2021 9:51 AM CST PROCEDURE: LUMBAR TRANSFORAMINAL EPIDURAL STEROID INJECTION UNDER FLUOROSCOPY LEVELS: Left L1-2 and L5-S1 PREOPERATIVE DIAGNOSIS: LUMBAR RADICULOPATHY POSTOPERATIVE DIAGNOSIS: SAME PREOP SURGEON: KYLIE NAVARRO MD RISKS, BENEFITS, ALTERNATE TREATMENTS DISCUSSED. [...] [place]. TARGET FOR L 1-2 AND L5-S1 NERVE ROOT IS THE 6 O???CLOCK POSITION OF THE PEDICLE SHADOW IN THE OBLIQUE X RAY VIEW AT THE LEVEL OF L 1-2 L5-S1 ON THE Left SIDE. APPROPRIATE NEEDLE [...] OVER THE NEXT FEW DAYS FOR FOLLOWUP. OGRAPHIC EQUIPMENT TECHNICIAN documented in this encounter Plan of Treatment Upcoming Encounters Date Type Department Care Team (Late st Contact Info) Description 02/05/2025 10:00 AM PHOTOGRAPHIC EQUIPMENT TECHNICIAN [facility] [address] [address] Stuart Garrett MD [address] [address] documented as of this encounter Procedures Procedure Name Priority Date/Time Associated Diagnosis Comments INJECTION EPIDURAL TRANSFORAMINAL 02/03/2021 9:36 AM PHOTOGRAPHIC EQUIPMENT TECHNICIAN lum rad XR PAIN CLINIC C-ARM Today 02/03/2021 8:33 AM PHOTOGRAPHIC EQUIPMENT TECHNICIAN documented in this encounter Results * XR PAIN CLINIC C-ARM (02/03/2021 8:33 AM PHOTOGRAPHIC EQUIPMENT TECHNICIAN) Narrative Radiology, Technologist - 02/03/2021 8:33 AM PHOTOGRAPHIC EQUIPMENT TECHNICIAN This report does not contain a radiologist's interpretation. Please review associated procedure and/or operative report. us Kylie Navarro MD GENERAL IMAGING Final Result documented in this encounter Visit Diagnoses Not on filedocumented in this encounter Administered Medications Inactive Administered Medications - up to 3 most recent administrations Medication Order MAR Action Action Date Dose Rate Site chlorhexidine (PERIDEX) 0.12 % solution 15 mL 15 mL, Mouth/Throat, PRN, Prior to surgery, 1 dose, Starting on Wed02/03/21 at 0851, Until Wed02/03/21 at 1203, Patient to perform oral care first. Swish/Gargle in mouth for 30 seconds, and then discard, prior to going to surgery/ If ventilated use saturated swab to clean oral cavity., Pre-Op documented in this encounter Active and Recently Administered Medications Times are shown in PHOTOGRAPHIC EQUIPMENT TECHNICIAN. PRN Medication Order 02/01/2021 02/02/2021 02/03/2021 BUpivacaine (MARCAINE) 0.25 % injection (CANCELED) As needed, Starting on Wed02/03/21 at 0944, Until Wed02/03/21 at 0947, Intra-Op 0944 (Given - Provid er: Kylie Navarro MD) chlorhexidine (PERIDEX) 0.12 % solution 15 mL 15 mL, Mouth/Throat, PRN, Prior to surgery, 1 dose, Starting on Wed02/03/21 at 0851, Until Wed02/03/21 at 1203, Patient to perform oral care first. Swish/Gargle in mouth for 30 seconds, and then discard, prior to going to surgery/ If ventilated use saturated swab to clean oral cavity., Pre-Op iopamidol (ISOVUE-M 300) 61 % injection (CANCELED) As needed, Starting on Wed02/03/21 at 0944, Until Wed02/03/21 at 0947, Intra-Op 0944 (Given - Provid er: Kylie Navarro MD) lidocaine (PF) (XYLOCAINE) 1 % injection (CANCELED) As needed, Starting on Wed02/03/21 at 0940, Until Wed02/03/21 at 0947, Intra-Op 0940 (Given - Provid er: Kylie Navarro MD) methylPREDNISolone acetate (DEPO-Medrol) injection (CANCELED) As needed, Starting on Wed02/03/21 at 0945, Until Wed02/03/21 at 0947, Intra-Op 0945 (Given - Provid er: Kylie Navarro MD) documented in this encounter Care Teams Teletype Adjuster Relationship Specialty Start Date End Date Mary Fabian MD [address] [place] [address] PCP - General FAMILY PRACTICE 08/25/19 documented as of this encounter
--- OUTSIDE RECORDS SUMMARY | 2024-03-18 22:35 | XMS_ITS | Encounter Summary ---
Author Organization [facility] Address [address] [place] [address]. [place] [address] [place] [address] Care Team Providers Care Health Center Manager Name Role Phone Mary Fabian MD Primary Care Provider + [phone] Reason for Visit * Reason Comments Supraventricular Tachycardia Follow up Syncope * Consultation/Treatment (Routine) - Closed Specialty Diagnoses / Procedures Referred By Contac t Referred To Contact CARDIOLOGY / Cardiology Diagnoses Supraventricular tachycardia ([facility]/HCC [facility]) Hyperlipidemia, unspecified Essential (primary) hypertension Mary Fabian MD [address] [place] [address] Phone: tel: fax: Stuart Garrett MD [facility]. [facility] [address] [place] [address] Phone: tel: fax: Referral ID Status Reason Start Date Expiration Date Visits Re quested Visits Authorized [id number] Closed 05/29/2022 05/31/2023 6 6 Encounter Details Date Type Department Care Team (Late st Contact Info) Description 07/20/2022 10:15 AM CDT Office Visit [facility] [address] [place] [address] Stuart Garrett MD [address] [address] Supraventricular Tachycardia (Follow up); Syncope Social History Tobacco Use Types Packs/Day Years [...] suspected to have Coronavirus/COVID-19? No / Unsure 07/20/2022 10:05 AM CDT documented as of this encounter Last Filed Vital Signs Vital Sign Reading Time Taken Comments Blood Pressure 138/62 07/20/2022 10:09 AM CDT Pulse 51 07/20/2022 10:09 AM CDT Temperature - - Respiratory Rate - - Oxygen Saturation 100% 07/20/2022 10:09 AM CDT Inhaled Oxygen Concentration - - Weight 44.5 kg (98 lb) 07/20/2022 10:09 AM CDT Height 165.1 cm (5' 5 ) 07/20/2022 10:09 AM CDT Body Mass Index 16.31 07/20/2022 10:09 AM CDT documented in this encounter Progress Notes * Stuart Garrett MD - 07/20/2022 10:15 AM CDT Reason for Visit: Supraventricular Tachycardia (Follow up) and Syncope History of Present Illness Dottie Bryant is a 77-year-old female with a past medical history of syncope, palpitations, andhypertension here today for scheduled follow up appointment. She has been doing ok, but did have a recent syncopal episode this past week. Her notes she was cleaning up some dishes when she passed out. The patient does not remember what happened. She notes she was busy but she did not notice any dizziness or palpitations. She was evaluated in the ER with no acute findings. She did have a scalp laceration which was sutured. No new chest pain, dyspnea, palpitations, irregular heart beats,fatigue, orthopnea, claudication or lower extremity edema. Recent diagnosis Alzheimer's. Patient rem ains mindful of her diet and tries to remain as active as possible. Patient reports that overall she doing well from an electrophysiology standpoint. Recommendations and Plan: 1. Syncope: 2. 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 Hypertension: Elevated Overall Dottie Bryant is doing ok from an electrophysiology standpoint. Etiology remains unclear. Would recommend we proceed with a 30 day event monitor to assess for any supraventricular or ventricular arrhythmia that may have contributed to the event. Will check an echocardiogram as well to reassess her LVEF and to assess for any structural heart changes as the cause. Further recommendations pending results. Given recurrent syncopal episodes would consider a implantable loop recorder. Herblood pressure is elevated today. Suspect a component of white coat hypertension combined with discomfort from recent fall. Encouraged her to remain active and mindful of her diet. It is my pleasure to participate in Dottie Bryant's care. We will follow up with the patient in6 months or sooner if needed. Data Reviewed EP Study 09/21/2019: SVT induced in EP lab which was diagnostic for AVNRT. Successful slow pathway modification performed. 08/31/2019 Echocardiogram: The left ventricular size is normal. Estimated left ventricular ejection fraction is 50-55%. There is no left ventricular hypertrophy. The right ventricular size is normal. Right ventricular systolic function is normal. No significant valvular abnormalities. Right ventricular systolic pressure is <35 mmHg. No evidence of pericardial effusion. Normal aortic root. No valvular abnormalities. 08/28/2019 Holter monitor: 24-hour Holter monitor for syncope with 3% burden of premature ventricular ectopic beats totalling 3000 beats. Otherwise, no particular symptom/rhythm correlation noted. Medications: Current Outpatient Medications: aspirin EC 81 MG tablet, Take 81 mg by mouth every morning., Disp: , Rfl: atorvastatin (LIPITOR) 40 MG tablet, , Disp: , Rfl: calcium-vitamin D 250-125 MG-UNIT tablet, Take 1 tablet by mouth daily., Disp: , Rfl: donepezil (ARICEPT) 10 MG Tab, , Disp: , Rfl: gabapentin (NEURONTIN) 100 MG capsule, Take 1 capsule (100 mg total) by mouth 2 (two) times daily.,Disp: , Rfl: ibandronate 150 MG tablet, , Disp: , Rfl: metoprolol succinate ER 25 MG 24 hr tablet, Take 25 mg by mouth every morning., Disp: , Rfl: Multiple Vitamin (MULTIVITAMIN) capsule, Take 1 capsule by mouth daily., Disp: , Rfl: Allergies Allergen Reactions Celecoxib Other (see comment) Reaction: Past Medical History: Diagnosis Date Arthritis Essential hypertension Hoarseness Hypercholesteremia Syncopal episodes TIA (transient ischemic attack) Weight loss Past Surgical History: Procedure Laterality Date CATARACT EXTRACTION SECTION X2 HC CATHETER ABLATION NON-CARDIAC ENDO T1 HC LIGATION/STRIP VARICOSE VEINS SKIN TISSUE PROCEDURE UNLISTED Social History Tobacco Use Smoking status: Never Smokeless tobacco: Never Substance Use Topics Alcohol use: Yes Comment: 2 glasses of wine /week Drug use: Never Family History Problem Relation Name Age of Onset Heart Attack Mother Heart Attack Father Family Status Relation Name Status Mother Father Sister Alive, age 73y Review of Systems Constitutional: Negative for recent unintentional weight gain, recent unintentional weight loss andnew or significant fatigue. HENT: Negative for new or significant hearing loss. Eyes: Negative for blurred vision and double vision. Respiratory: Negative for cough, new or significant shortness of breath and snoring. Cardiovascular: Positive for palpitations.Negative for chest pain, claudication, leg swelling and PND. Gastrointestinal: Negative for blood in stool and melena. Genitourinary: Negative for dysuria. Musculoskeletal: Negative for myalgias and new or worsening joint stiffness/pain. Skin: Negative for rash. Neurological: Negative for tingling/numbness and focal weakness. Endo/Heme/Allergies: Negative for new or significant bruising/bleeding and polydipsia. Psychiatric/Behavioral: Negative for depression and new or significant memory loss. Vitals: 07/20/22 1009 BP: 138/62 Pulse: (!) 51 Body mass index is 16.31 kg/m??. Physical Exam Constitutional: No distress. HENT: Eyes: Conjunctivae normal. Neck: Normal range of motion. Neck supple. No JVD. Pulmonary: Effort normal. Breath sounds normal. Abdomen: No distension. Neurological: Alert. Oriented x 3. Appropriate mood and affect. Normal motor skills. Normal gait. Skin: Dry. Warm. No cyanosis. No clubbing. Musculoskeletal: No kyphosis. Normal ROM. Cardiovascular: Rate: Regular rhythm and Normal rate. PMI: PMI not displaced Pulses: Negative for edema. Heart Sounds: Normal heart sounds. Normal S1 and Normal S2. No gallop. No S3 sound. No S4 sound andNo murmur. Cardiovascular Comments: Diagnoses/Impression: No diagnosis found. Referring Provider: Mary Fabian MD PCP: MARY FABIAN MD documented in this encounter Plan of Treatment Upcoming Encounters Date Type Department Care Team (Late st Contact Info) Description 02/05/2025 10:00 AM SULFONATION EQUIPMENT OPERATOR Office Visit [facility] [place] [address] [place] [address] Stuart Garrett MD [facility]. [place] [address] [place] [address] documented as of this encounter Visit Diagnoses Diagnosis Syncope, unspecified syncope type- Primary documented in this encounter Care Teams Health Center Manager Relationship Specialty Start Date End Date Mary Fabian MD [address] [facility] [address] PCP - General FAMILY PRACTICE 08/25/19 documented as of this encounter
--- OUTSIDE RECORDS SUMMARY | 2024-03-18 22:35 | XMS_ITS | Encounter Summary ---
Author Organization [facility] Address [address] [place] [address]. [place] [address] [place] [address] Care Team Providers Care International Freight Forwarder Name Role Phone Mary Fabian MD Primary Care Provider + [phone] Reason for Visit * Reason Comments Supraventricular Tachycardia annual * Consultation/Treatment (Routine) - Closed Specialty Diagnoses / Procedures Referred By Contac t Referred To Contact CARDIOLOGY / Cardiology Diagnoses Supraventricular tachycardia ([facility]) Hyperlipidemia, unspecified Essential (primary) hypertension Mary Fabian MD [address] [place] [address] Phone: tel: fax: Stuart Garrett MD [facility]. [facility] [address] [place] [address] Phone: tel: fax: Referral ID Status Reason Start Date Expiration Date Visits Re quested Visits Authorized [id number] Closed 05/29/2022 05/31/2023 6 6 Encounter Details Date Type Department Care Team (Late st Contact Info) Description 05/29/2022 10:45 AM CDT Office Visit [facility] THREE [facility], [facility] [address] [place] [address] Stuart Garrett MD [facility]. [address] [address] Julisa Cummings PA-C [address] [place] [id number] [place] [address] Supraventricular Tachycardia (annual) Social History Tobacco Use Types Packs/Day Years [...] suspected to have Coronavirus/COVID-19? No / Unsure 05/29/2022 10:21 AM CDT documented as of this encounter Last Filed Vital Signs Vital Sign Reading Time Taken Comments Blood Pressure 140/70 05/29/2022 10:23 AM CDT Pulse 63 05/29/2022 10:23 AM CDT Temperature - - Respiratory Rate - - Oxygen Saturation 95% 05/29/2022 10:23 AM CDT Inhaled Oxygen Concentration - - Weight 45.8 kg (101 lb) 05/29/2022 10:23 AM CDT Height 165.1 cm (5' 5 ) 05/29/2022 10:23 AM CDT Body Mass Index 16.81 05/29/2022 10:23 AM CDT documented in this encounter Progress Notes * Julisa Cummings PA-C - 05/29/2022 10:45 AM CDT Reason for Visit: Supraventricular Tachycardia (annual) History of Present Illness Dottie Bryant is a 76-year-old female with a past medical history of [...] electrophysiology standpoint. Recommendations and Plan: 1. Syncope: Episode this week requiring ER visit 2. 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 Hypertension: Elevated Overall Dottie Bryant is doing ok from an electrophysiology standpoint. She did have a recent syncopal episode. Etiology remains unclear. Would recommend we proceed with a 30 day event monitor toassess for any supraventricular or ventricular arrhythmia that may have contributed to the event. Will check an echocardiogram as well to reassess her LVEF and to assess for any structural heart changes as the cause. Further recommendations pending results. Given recurrent syncopal episodes would consider a implantable loop recorder. Her blood pressure is elevated today. Suspect a component of white coat hypertension combined with discomfort from recent fall. Encouraged her to remain active and mindful of her diet. It is my pleasure to participate in Dottie Nguyen care. We will follow up with the patient in 6-8 weeks or sooner if needed. Data Reviewed EP [...] beats. Otherwise, no particular symptom/rhythm correlation noted. ? Medications: Current Outpatient Medications: ??? gabapentin (NEURONTIN) 100 MG capsule, Take 1 capsule (100 mg total) by mouth 2 (two) times daily., Disp: , Rfl: ??? aspirin EC 81 MG tablet, Take 81 mg by mouth every morning., Disp: , Rfl: ??? atorvastatin (LIPITOR) 40 MG tablet, , Disp: , Rfl: ??? calcium-vitamin D 250-125 MG-UNIT tablet, Take 1 tablet by mouth daily., Disp: , Rfl: ??? donepezil (ARICEPT) 10 MG Tab, , Disp: , Rfl: ??? ibandronate 150 MG tablet, , Disp: , Rfl: ??? metoprolol succinate ER 25 MG 24 hr tablet, Take 25 mg by mouth every morning., Disp: , Rfl: ??? Multiple Vitamin (MULTIVITAMIN) capsule, Take 1 capsule by mouth daily., Disp: , Rfl: Allergies Allergen Reactions ??? Celecoxib Other (see [...] ??? SKIN TISSUE PROCEDURE UNLISTED Social History Tobacco Use ??? Smoking status: Never ??? Smokeless tobacco: Never Substance Use Topics ??? Alcohol use: Yes Comment: 2 glasses of wine /week ??? Drug use: Never Family History Problem Relation Name Age of Onset ??? Heart Attack Mother ??? Heart Attack Father Family Status Relation Name Status ??? Mother ??? Father ??? Sister Alive, age 73y Review of Systems [...] and new or significant memory loss. Vitals: 05/29/22 1023 BP: (!) 140/70 Pulse: 63 Body mass index is 16.81 kg/m??. Physical Exam Constitutional: No distress. HENT: Eyes: Conjunctivae normal. Neck: Normal range of motion. Neck supple. No JVD. Pulmonary: Effort normal. Breath sounds normal. Abdomen: No distension. Neurological: Alert. Oriented x 3. Appropriate mood and affect. Normal motor skills. Normal gait. Skin: Dry. Warm. No cyanosis. No clubbing. Left black eye and laceration. Musculoskeletal: No kyphosis. Normal ROM. Cardiovascular: Rate: Regular rhythm and Normal rate. PMI: PMI not displaced Pulses: Negative for edema. Heart Sounds: Normal heart sounds. Normal S1 and Normal S2. No gallop. No S3 sound. No S4 sound andNo murmur. Cardiovascular Comments: Diagnoses/Impression: 1. Syncope, unspecified syncope type 2. SVT (supraventricular tachycardia) (CMS/HCC) CANCELED: ELECTROCARDIOGRAM Referring Provider: Mary Fabian MD PCP: MARY FABIAN MD documented in this encounter Plan of Treatment Upcoming Encounters Date Type Department Care Team (Late st Contact Info) Description 02/05/2025 10:00 AM AIR TWIST OPERATOR Office Visit [facility] THREE [facility], [place] [address] [place] [address] Stuart Garrett MD Three [facility]. [place] [address] [place] [address] documented as of this encounter Visit Diagnoses Diagnosis Syncope, unspecified syncope type- Primary SVT (supraventricular tachycardia) (CMS/HCC [facility]/HCC) Other specified cardiac dysrhythmias documented in this encounter Care Teams International Freight Forwarder Relationship Specialty Start Date End Date Mary Fabian MD [address] [place] [address] PCP - General FAMILY PRACTICE 08/25/19 documented as of this encounter
--- OUTSIDE RECORDS SUMMARY | 2024-03-18 22:35 | XMS_ITS | Encounter Summary ---
Author Organization [facility] Address [address] [place] [address]. [place], [place] [address] [place] [address] Care Team Providers Care Field Agronomist Name Role Phone Mary Fabian MD Primary Care Provider + [phone] Reason for Referral * Surgical (Routine) - Closed Specialty Diagnoses / Procedures Referred By Contac t Referred To Contact Procedures Case request operating room: INJECTION EPIDURAL TRANSFORAMINAL l45 and l5s1 Izabela Navarro MD Three [facility] [address] [place], [place] [address] Phone: tel: fax: Referral ID Status Reason Start Date Expiration Date Visits Re quested Visits Authorized [id number] Closed 12/16/2020 01/16/2022 1 1 Reason for Visit * Auth/Cert Specialty Diagnoses / Procedures Referred By Contac t Referred To Contact Diagnoses Lumbar radiculopathy Procedures INJECTION EPIDURAL TRANSFORAMINAL L4-5, L5-S1 Referral ID Status Reason Start Date Expiration Date Visits Re quested Visits Authorized [id number] 1 1 Encounter Details Date Type Department Care Team (Latest Contact Info) Description 12/16/2020 9:19 AM CDT - 12/16/2020 10:40 AM CDT Hospital Encounter [facility] Interventional [place] [address] [id number] Izabela Navarro MD Three [facility] [address] [place] [address] Discharge Disposition: Home or Self Care (Routine [...] Bergman RN - 12/16/2020 10:39 AM CDT [facility] Interventional Pain Management Discharge Instructions ANY NEW [...] DOCTOR AND HOW TO REACH US: Call [phone]. [phone] for scheduling, insurance questions or speak with [...] were discussed with the patient and/or family/personal international representative. Questions were answered and the patient/family/personal international representative verbalized understanding and desires to proceed. [...] epidural steroid injections in approximately 2010 at [facility], which provided long- lasting improvement, states years [...] her pain. Previous treatments tried: She underwent career development specialist at [facility] in [place], [place] 3 to 4 years ago, did notice some temporary improvement with the treatments. She received epidural steroid injections at [facility] 10 to 11 years ago, which she [...] Gatherings with Friends and Family: ??? Attends Rastafari Services: ??? Active Member of Clubs or [...] left groin. Right foot pain, follows with storage brine worker Obi Gabriel MD, has undergone injections the [...] x-ray of the sacroiliac joints on 11/08/2020 [facility]. The radiologist report was reviewed and [...] Jasen Quick M.D. ML: ALYSON Report ID: [id number] Reading Location: [place] [address] She had an MRI of the lumbar [...] This note is been addended by Maribel uQreshi APN on 12/11/2020 at 12:49 PM to [...] and abdomen was unremarkable. The patient rises from the seated position without difficulty. Her gait is steady, no difficulty with heel and toe walk. No scarring, redness, lesions, or sign of infection noted to the lumbar region. She denies pain to deep palpation across the lumbar facets. No pain to palpation of the SI joints. She does experience some significant tenderness palpation of the lateral left gluteal region, mid and superior aspect, aswell as pain to palpation posterior to the left greater trochanter. Range of motion of the left hipis within normal limits with extension, flexion, abduction [...] st Contact Info) Description 02/05/2025 10:00 AM FIELD PROJECT MANAGER Office Visit [facility] THREE [facility], [place] [address] [place] [address] Stuart Garrett MD Three [facility]. [place] [address] [place], [place] [phone] documented as of this encounter Procedures Procedure [...] associated procedure and/or operative report. us Izabela Navarro MD GENERAL IMAGING Final Result [...] MD) documented in this encounter Care Teams Field Agronomist Relationship Specialty Start Date End Date Mary Fabian MD [address] [place], [place] [id number] PCP - General FAMILY PRACTICE 08/25/19 documented as of this encounter
--- OUTSIDE RECORDS SUMMARY | 2024-03-18 22:35 | XMS_ITS | Encounter Summary ---
Author Organization [facility] Address [address] [place] [address]. [place] [address] [place] [address] Care Team Providers Care Die Stamping Press Operator Name Role Phone Beau Clement MD Primary Care Provider + [phone] Encounter Details Date Type Department Care Team (Latest Contact Info) Description 06/16/2022 Travel Social History Tobacco Use Types Packs/Day [...] suspected to have Coronavirus/COVID-19? No / Unsure 06/16/2022 11:58 AM CDT documented as of this encounter Plan of Treatment Upcoming Encounters Date Type Department Care Team (Late st Contact Info) Description 02/05/2025 10:00 AM BRUSH FILLER HAND Office Visit [facility] THREE [facility], [place] [address] [place] [address] Stuart Garrett MD [facility]. [facility] [address] [place], [place] [phone] documented as of this encounter Visit Diagnoses Not on filedocumented in this encounter Care Teams Die Stamping Press Operator Relationship Specialty Start Date End Date Beau Clement MD [address] [place] [address] PCP - General FAMILY PRACTICE 08/25/19 documented as of this encounter
--- OUTSIDE RECORDS SUMMARY | 2024-03-18 22:35 | XMS_ITS | Encounter Summary ---
Author Organization [facility] Address [address] [place] [address]. [place], [place] [address] [place] [address] Care Team Providers Care Smoke Chaser Name Role Phone Beau Clement MD Primary Care Provider + [phone] Encounter Details Date Type Department Care Team (Late Contact Info) Description 05/29/2022 Scan [facility] [address] Scanned, Doc Pccl Social History Tobacco Use Types Packs/Day Years [...] Encounters Date Type Department Care Team (Late Contact Info) Description 02/05/2025 10:00 AM FLIGHT CONTROL MANAGER Office Visit [facility] THREE [facility], [place] [address] [place], [place] [phone] Stuart Garrett MD Three [facility]. [place] [address] [place], [place] [phone] documented as of this encounter Visit Diagnoses Not on filedocumented in this encounter Care Teams Smoke Chaser Relationship Specialty Start Date End Date Beau Clement MD [address] [place], [place] [phone] PCP - General FAMILY PRACTICE 08/25/19 documented as of this encounter
--- OUTSIDE RECORDS SUMMARY | 2024-03-18 22:35 | XMS_ITS | Encounter Summary ---
Author Organization [facility] Address [address] [place] [address]. [place] [address] [place] [address] Care Team Providers Care Airframe Design Engineer Name Role Phone Mary Fabian MD Primary Care Provider [phone] Reason for Visit * Auth/Cert Specialty Diagnoses / Procedures Referred By Contac t Referred To Contact Diagnoses lum rad Procedures INJECTION EPIDURAL TRANSFORAMINAL l45 and l5s1 Referral ID Status Reason Start Date Expiration Date Visits Re quested Visits Authorized [id number] 1 1 Encounter Details Date Type Department Care Team (Late st Contact Info) Description 01/09/2021 10:40 AM CDT - 01/09/2021 11:00 AM CDT Surgery [facility] Interventional [place] [address] [id number] Izabela Navarro MD Three [facility] [address] [place] [address] INJECTION EPIDURAL TRANSFORAMINAL l45 and l5s1 Surgery Details Date/Time Status Location OR Service Patient Class Case Class Case Type Trauma Case? 01/09/2021 10:40 AM Posted [facility] Pain Proc Rm Pain Medicine Short Stay/Outpa tient Surgery No Panel 1 Procedure LRB Anes Op Region Wound Class Comments INJECTION EPIDURAL TRANSFORAMINAL l45 and l5s1 Left Local Spine Lumbar Clean #2 TFESI NO BLD THIN REF DR FABIAN SCHED LS 12/16/20 [facility] Surgeon Surgeon Role Service Panel Izabela [...] Sign Reading Time Taken Comments Blood Pressure 152/74 01/09/2021 10:52 AM CDT Pulse 72 01/09/2021 10:39 AM CDT Temperature 36.6 ??C (97.8 ??F) 01/09/2021 10:06 AM C DT Respiratory Rate 16 01/09/2021 10:39 AM CDT Oxygen Saturation 95% 01/09/2021 10:39 AM CDT Inhaled Oxygen Concentration - - Weight 56.7 kg (125 lb) 01/09/2021 10:06 AM CDT Height 160 cm (5' 3 ) 01/09/2021 10:06 AM CDT Body Mass Index 22.14 01/09/2021 10:06 AM CDT documented in this encounter Discharge Instructions * Discharge Instructions* Harper Hopkins RN - 01/09/2021 10:36 AM CDT [facility] Interventional Pain Management Discharge Instructions WHAT TO DO TODAY: - Limit your [...] DOCTOR AND HOW TO REACH US: Call [phone] ext. [phone] for scheduling, insurance questions or speak with [...] PLEASE GO TO THE EMERGENCY ROOM IMMEDIATELY! FOR YOUR NEXT INJECTION APPOINTMENT. Please do [...] medications as prescribed with sips of water. You have received a prescription for Valium to help with anxiety for your next procedure. Please get this filled at your pharmacy for the day of your procedure.. Please take as directed. YOU MUST HAVE A RESPONSIBLE ADULT WITH YOU FOR THIS APPOINTMENT OR YOU MAY BE CANCELED. Please note that this is a one time prescription for your upcoming procedure. This prescription will not be replaced if lost or stolen. Please note that if you cancel or no show for your procedure there will not be another prescriptionissued for the rescheduled date. Please bring a family member with you if you take medical transportation. documented in this encounter Medications at Time [...] 10 mg by mouth daily. 07/19/2019 2 calcium carb-cholecalcifero l 250-125 MG-UNIT tablet Take 1 tablet by mouth daily. 2 clarithromycin 500 MG tablet 11/01/2020 2 [...] H&P Notes * Izabela Navarro MD - 01/09/2021 10:27 AM CDT HISTORY AND PHYSICAL INTERVAL NOTE: I have reviewed Dottie Bryant History & Physical which was performed within the past 30 days. After examining Dottie Bryant, no change has occurred in the patient's condition since the H&P was completed. Informed Consent Discussion: Risks, benefits, alternatives as well as the consequences of not performing the surgery/procedure were discussed with the patient and/or family/personal retail service representative. Questions were answered and the patient/family/personal retail service representative verbalized understanding and desires to proceed. Previous Adverse Experience with Sedation, Analgesia, or Anesthesia? No Risk benefits and alternate treatments were discussed. Signed: IZBAELA NAVARRO MD 10:27 AM Source Note - MAKAYLA Baca - [...] epidural steroid injections in approximately 2010 at [facility], which provided long- lasting improvement, states years [...] her pain. Previous treatments tried: She underwent care aid at [facility]ropract[facility] in [place], [place] 3 to 4 years ago, did notice some temporary improvement with the treatments. She received epidural steroid injections at [facility] 10 to 11 years ago, which she [...] Gatherings with Friends and Family: ??? Attends Hoahaoism Services: ??? Active Member of Clubs or [...] left groin. Right foot pain, follows with dyehouse worker Obi Gabriel MD, has undergone injections [...] x-ray of the sacroiliac joints on 11/08/2020 [facility]. The radiologist report was reviewed and [...] Jasen Quick M.D. ML: ALYSON Report ID: [id number] Reading Location: [place] [address] She had an MRI of the lumbar [...] Op Note - Izabela Navarro MD - 01/09/2021 10:43 AM CDT PROCEDURE: LUMBAR TRANSFORAMINAL EPIDURAL STEROID [...] st Contact Info) Description 02/05/2025 10:00 AM EVENT MARKETING INTERN Office Visit [facility] THREE [facility], [facility] [address] [place], [place] [phone] Stuart Garrett MD [facility]. [facility] [address] [place] [address] documented as of this encounter Procedures Procedure Name Priority Date/Time Associated Diagnosis Comments INJECTION EPIDURAL TRANSFORAMINAL 01/09/2021 10:32 AM CDT lum rad XR PAIN CLINIC C-ARM Today 01/09/2021 9:40 AM CDT documented in this encounter Results * XR PAIN CLINIC C-ARM (01/09/2021 9:40 AM CDT) Narrative Radiology, Technologist - 01/09/2021 9:40 AM CDT This report does not contain [...] % injection As needed, Starting on Charmaine 01/09/21 at 1038, Until Charmaine 01/09/21 at 1040, Intra-Op Given 01/09/2021 10:38 AM CDT 2 mLs Lumbar Spine chlorhexidine (PERIDEX) 0.12 % solution 15 mL 15 mL, Mouth/Throat, PRN, Prior to surgery, 1 dose, Starting on Charmaine 01/09/21 at 1012, Until Charmaine 01/09/21 at 1258, Patient to perform oral care first. Swish/Gargle in mouth for 30 seconds, and then discard, prior to going to surgery/ If ventilated use saturated swab to clean oral cavity., Pre-Op iopamidol (ISOVUE-M 300) 61 % injection As needed, Starting on Charmaine 01/09/21 at 1038, Until Charmaine 01/09/21 at 1040, Intra-Op Given 01/09/2021 10:38 AM CDT 5 mLs Lumbar Spine lidocaine (PF) (XYLOCAINE) 1 % injection As needed, Starting on Charmaine 01/09/21 at 1035, Until Charmaine 01/09/21 at 1040, Intra-Op Given 01/09/2021 10:35 AM CDT 2 mLs Back methylPREDNISolone acetate (DEPO-Medrol) injection As needed, Starting on Charmaine 01/09/21 at 1038, Until Charmaine 01/09/21 at 1040, Intra-Op Given 01/09/2021 10:38 AM CDT 80 mg Lumbar Spine documented in this encounter Active and Recently Administered Medications Times are shown in CDT. PRN Medication Order 01/07/2021 01/08/2021 01/09/2021 BUpivacaine (MARCAINE) 0.25 % injection (CANCELED) As needed, Starting on Charmaine 01/09/21 at 1038, Until Charmaine 01/09/21 at 1040, Intra-Op 1038 (Given - Provid er: Izabela Navarro MD) chlorhexidine (PERIDEX) 0.12 % solution 15 mL 15 mL, Mouth/Throat, PRN, Prior to surgery, 1 dose, Starting on Charmaine 01/09/21 at 1012, Until Charmaine 01/09/21 at 1258, Patient to perform oral care first. Swish/Gargle in mouth for 30 seconds, and then discard, prior to going to surgery/ If ventilated use saturated swab to clean oral cavity., Pre-Op iopamidol (ISOVUE-M 300) 61 % injection (CANCELED) As needed, Starting on Charmaine 01/09/21 at 1038, Until Charmaine 01/09/21 at 1040, Intra-Op 1038 (Given - Provid er: Izabela Navarro MD) lidocaine (PF) (XYLOCAINE) 1 % injection (CANCELED) As needed, Starting on Charmaine 01/09/21 at 1035, Until Charmaine 01/09/21 at 1040, Intra-Op 1035 (Given - Provid er: Izabela Navarro MD) methylPREDNISolone acetate (DEPO-Medrol) injection (CANCELED) As needed, Starting on Charmaine 01/09/21 at 1038, Until Charmaine 01/09/21 at 1040, Intra-Op 1038 (Given - Provid er: Izabela Navarro MD) documented in this encounter Care Teams Airframe Design Engineer Relationship Specialty Start Date End Date Mary Fabian MD [address] [place] [address] PCP - General FAMILY PRACTICE 08/25/19 documented as of this encounter
--- OUTSIDE RECORDS SUMMARY | 2024-03-18 22:35 | XMS_ITS | Encounter Summary ---
Author Organization [facility] Address [address] [place] [address]. [place] [address] [place] [address] Care Team Providers Care Oil And Gas Well Treatment Operator Name Role Phone Beau Clement MD Primary Care Provider + [phone] Encounter Details Date Type Department Care Team (Latest Contact Info) Description 02/03/2021 Travel Social History Tobacco Use Types Packs/Day [...] COVID-19? No / Unsure 02/03/2021 8:27 AM SENIOR ASSISTANT MANAGER documented as of this encounter Plan of Treatment Upcoming Encounters Date Type Department Care Team (Late st Contact Info) Description 02/05/2025 10:00 AM SENIOR ASSISTANT MANAGER Office Visit [facility] THREE [facility], [address] [address] Stuart Garrett MD [facility]. [facility] [address] [place] [address] documented as of this encounter Visit Diagnoses Not on filedocumented in this encounter Care Teams Oil And Gas Well Treatment Operator Relationship Specialty Start Date End Date Beau Clement MD [address] [place], [place] [id number] PCP - General FAMILY PRACTICE 08/25/19 documented as of this encounter
--- OUTSIDE RECORDS SUMMARY | 2024-03-18 22:35 | XMS_ITS | Encounter Summary ---
Author Organization [facility] Address [address] [place] [address]. [place] [address] [place] [address] Care Team Providers Care Security Solutions Engineer Name Role Phone Beau Clement MD Primary Care Provider + [phone] Encounter Details Date Type Department Care Team (Late st Contact Info) Description 12/11/2020 Prep for Procedure [facility] [place], [place] [phone] [id number] Maribel Qureshi, MAKAYLA [address] [place] [address] Social History Tobacco Use Types Packs/Day Years [...] have Coronavirus / COVID-19? No / Unsure 12/11/2020 4:32 AM CDT documented as of this encounter Plan of Treatment Upcoming Encounters Date Type Department Care Team (Late st Contact Info) Description 02/05/2025 10:00 AM MEAT HOSTESS Office Visit [facility], [address] [place], [place] [phone] Stuart Garrett MD Three [facility]. [address] [place], [place] [phone] documented as of this encounter Visit Diagnoses Not on filedocumented in this encounter Care Teams Security Solutions Engineer Relationship Specialty Start Date End Date Beau lCement MD [address] [facility] [address] [place], [place] [phone] PCP - General FAMILY PRACTICE 08/25/19 documented as of this encounter
--- OUTSIDE RECORDS SUMMARY | 2024-03-18 22:35 | XMS_ITS | Encounter Summary ---
Author Organization [facility] Address [address] [place] [address]. [place] [address] [place] [address] Care Team Providers Care Government Relations Director Name Role Phone Beau Clement MD Primary Care Provider [phone] Reason for Visit * Reason Onset Date Comments Results 06/24/2022 Encounter Details Date Type Department Care Team (Late st Contact Info) Description 06/24/[address] [phone] Emelyn Basurto, RN Results Social History Tobacco Use Types Packs/Day Years [...] AM CDT documented as of this encounter Progress Notes * Emelyn Basurto RN - 06/24/2022 2:02 PM CDT Echo overall looks good. Normal LV systolic function with mild MR, stable. No changes to explain syncopal episode. Above message from Julisa PUGH. [employer] message sent to the patient with the above information. documented in this encounter Plan of Treatment Upcoming Encounters Date Type Department Care Team (Late st Contact Info) Description 02/05/2025 10:00 AM CERTIFIED NURSE AIDE Office Visit [facility], [address] [place], [place] [phone] Stuart Garrett MD Three [facility]. [address] [place], [place] [phone] documented as of this encounter Visit Diagnoses Not on filedocumented in this encounter Care Teams Government Relations Director Relationship Specialty Start Date End Date Beau Clement MD [address] [facility] [place], [place] [phone] PCP - General FAMILY PRACTICE 08/25/19 documented as of this encounter
--- OUTSIDE RECORDS SUMMARY | 2024-03-18 22:35 | XMS_ITS | Encounter Summary ---
Author Organization [facility] Address [address] [place] [address]. [place] [address] [place] [address] Care Team Providers Care Chisel Worker Name Role Phone Mary Fabian MD Primary Care Provider + [phone] Reason for Referral * Imaging (Routine) - Closed Specialty Diagnoses / Procedures Referred By Contac t Referred To Contact RADIOLOGY Diagnoses Syncope Procedures USE ECHOCARDIOGRAM Stuart Garrett MD [facility] [address] [place] [address] Phone: tel: fax: Referral ID Status Reason Start Date Expiration Date Visits Re quested Visits Authorized [id number] Closed 05/29/2022 06/29/2023 1 1 * Imaging (Routine) - Closed Specialty Diagnoses / Procedures Referred By Contac t Referred To Contact Diagnoses Syncope Procedures CLINIC - [facility] - Today Stuart Garrett MD [facility] [address] [place] [address] Phone: tel: fax: [facility] [place] [place] [address] Phone: tel: fax: Referral ID Status Reason Start Date Expiration Date Visits Re quested Visits Authorized [id number] Closed 05/29/2022 05/30/2023 1 1 Encounter Details Date Type Department Care Team ([facility] Contact Info) Description 05/29/2022 Orders Only [facility] [place], [address] [address] Stuart Garrett MD [facility]. 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 [place] [id number] [place], [place] [address] documented as of this encounter Procedures Procedure Name Priority Date/Time Associated Diagnosis Comments X-RAY EXAM CHEST 1 VIEW Routine 05/27/2022 ECG 12-LEAD Routine 05/27/2022 CT HEAD OR BRAIN W/O CON Routine 05/27/2022 documented in this encounter Results * CLINIC - [address] [facility] - Today (07/08/2022 11:47 AM CDT) [facility] - 07/08/2022 11:47 AM CDT Three [place], [place] ??[address] Phone: ?? Fax: ?? DONOR SERVICES TEAM LEADER REPORT PATIENT NAME: ??Dottie Huang : ??1945 DATE OF TESTIN06/05/22 - 07/04/22 TYPE OF MONITOR: Mobile Cardiac Telemetry (MCT) PCP: ??MARY FABIAN MD INTERPRETING COIL SHAPER: ??Stuart Garrett MD INDICATION: ??Syncope and collapse * The patient was monitored for 29d 09h 43m. Monitoring began on 06/05/2022 and completed on 07/04/2022. During the study, the patient had 28d 11h 54m of ECG collected. There were [phone] classifiable QRS complexes detected. * Maximum heart rate was 149 BPM on 06/13 12:34, Minimum heart rate was 40 BPM on 06/28 03:07, and Average heart rate was 64 BPM. * There were 29,377 Ventricular Ectopic beats with a burden of 1%. * There were 2,543 Supraventricular Ectopic beats with a burden of <1%. * No Atrial Fibrillation was identified for this study. Events include the following: * 2 Ventricular Tachycardia events - the longest episode was 6.6s on 06/21 09:30, and the fastest episode was 124 BPM on 06/25 14:16. * 2 Supraventricular Tachycardia events - the longest episode was 14.9s on 06/10 02:46, and the fastest episode was 169 BPM on 07/01 07:31. * No Atrial Fibrillation. * No Pauses. * No Third Degree AV Block or Second Degree AV Block Type II. * 9 patient triggered events, no symptoms were specified. SUMMARY: No significant arrhythmia burden No symptom rhythm correlation us Stuart Garrett MD CV VASCULAR ORDERABLES Final Res ult [facility] * USE ECHOCARDIOGRAM (06/16/2022 12:41 PM CDT) Anatomical Region Laterality Modality Cardiac Echocardiogram 06/16/2022 12:1 3 PM CDT Narrative 06/18/2022 9:45 PM CDT ?Echocardiography Report Pat.Name: ??DOTTIE HUANG ?Pat.ID: ?[id number] ? St.Date: ?? 06/16/2022 ? Exam Time: 12:13:00 PM ? Study Type:ECHO WITH CARDIAC DOPPLER COMP Height: ?65 in ? Weight: ?101 lb ?BSA: ? 1.48 m2 ?Age: ??1945,76Y ?Sex: ? F ? BP: ?150/75 ?Sonogrphr: Mague Lau RCS ? Pat. Stat.:Outpatient ?CPT - 4: ?[id number] ? Reason for Study:Syncope/pre-syncope Procedures: 2D, M-mode, Doppler, Color Flow Race: ?W ? ++++++++++++++++++++++++++++++++++++ SUMMARY: ++++++++++++++++++++++++++++++++++++ The left ventricular size is normal. The left ventricular systolic function is normal. Estimated left ventricular ejection fraction is 55-60%. Mild concentric left ventricular hypertrophy. Left ventricular diastolic function is indeterminate. The right ventricular size is normal. Right ventricular systolic function is normal. Mild to moderate mitral regurgitation. ++++++++++++++++++++++++++++++++++++ FINDINGS: ++++++++++++++++++++++++++++++++++++ LV: ? The left ventricular size is normal. The left ventricular ?systolic function is normal. Estimated left ventricular ?ejection fraction is 55-60%. Mild concentric left ?ventricular hypertrophy. The septal E/e' is indeterminate at ?8-15. The lateral E/e' is normal at <8. Left ventricular ?diastolic function is indeterminate. The LV Strain is -16.6. WM: ? Wall motion appears normal in all segments. RV: ? The right ventricular size is normal. Right ventricular ?systolic function is normal. TAPSE = 17.6mm (<16 mm ?indicates systolic RV dysfunction). LA: ? The left atrial volume is normal ( less than 34 ml/M2). RA: ? The right atrial size is normal. JIMMIE: ? No evidence of pericardial effusion. AO: ? Normal aortic root. The proximal ascending aorta measures ?3.09cm. PA: ? The peak pulmonary artery systolic pressure is estimated to ?be approximately 13.0 mmHg. Estimated right atrial pressure ?of 3 mmHg. SVn: ?Inferior vena cava is normal. Inferior vena cava shows >50% ?collapse with respiration consistent with normal right ?atrial pressure. AV: ? Structurally normal aortic valve. The aortic valve is ?trileaflet. No evidence of aortic valve stenosis. No ?evidence of aortic valve regurgitation. MV: ? Structurally normal mitral valve. Mild to moderate mitral ?regurgitation. No evidence of mitral stenosis. PV: ? Structurally normal pulmonic valve. Trace pulmonic ?regurgitation. No evidence of pulmonic valve stenosis. TV: ? Structurally normal tricuspid valve. Mild tricuspid ?regurgitation. No evidence of tricuspid valve stenosis. ++++++++++++++++++++++++++++++++++++ MEASUREMENTS: ++++++++++++++++++++++++++++++++++++ ?DOPPLER Pulmonary Veins ?? PVnpkVeld ? 39 cm/s ?S1-wave velocit ??0.67 m/s PVnVs/Vd ?1.73 ? Pulmonary Vein ?? 0.56 m/s AV Regurg Flow AV TVI ? 190 cm ? MV Forward Flow MV P1/2t ?0.09 second (30-60)* MV Regurg Flow MV mnPG ? 82.8 mmHg ?MV pkPG ? 99.6 mmHg MV mnVel ? 454 cm/s ? MV pkVel ? 499 cm/s (60-130)* TV Forward Flow TV E/A ?1.16 ? Aortic Valve ?? Cardiovascular ?? 2.05 cm ? Aortic Root Luis Alberto ??3.28 cm ?? LVOT/AoV (PATIENT ADMITTING CLERK) ( ??0.59 ?Left atrial luis alberto ??3.12 cm ?? AV Antegrade Flow Peak Velocity ( ??1.42 m/s ?Mean Velocity ( ??0.96 m/s Velocity Time I ??31.6 cm ? AV Antegrade Flow Simplified Bernoulli Gradient pressu ?? 8.1 mmHg ? Gradient pressu ? 4 mmHg AV Continuity Equation by Velocity Time Integral Aortic Valve Ar ??1.98 cm2 ?AoV Area Index ?? 1.34 ? Left Ventricle ?? Stroke Volume ( ??62.6 ml ? Cardiac Output ?? 3.82 liter per minute LV Antegrade Flow Peak Velocity ( ??0.84 m/s ?Mean Velocity ( ??0.56 m/s Velocity Time I ?19 cm ? LV Antegrade Flow Simplified Bernoulli Gradient pressu ?? 2.8 mmHg ? Gradient pressu ?? 1.4 mmHg Mitral Valve ?? Mitral Valve E- 0.273 second ? Mitral Valve E ?? 0.83 ? Myocardial Velo ?? 8.4 centimeter/second Mean Myocardial ?? 7.1 centimeter/second Myocardial Velo ?? 5.7 centimeter/second Ratio of Mitral ?? 9.1 ? Myocardial Velo ??11.5 centimeter/second Ratio of Mitral ??7.69 ? Myocardial Velo ??11.8 centimeter/second Ratio of Mitral ??11.3 ? Isovelocity rel ??0.13 second ? Mean Myocardial ??11.7 centimeter/second Heart rate ?62 Heart beat per minute MV Antegrade Flow Mitral Valve E- ??0.65 m/s ?Velocity Time I ?29 cm ?? Mitral Valve A- ??0.78 m/s ?Mean Velocity ( ??0.47 m/s Peak Velocity ( ??0.89 m/s ? MV Antegrade Flow Simplified Bernoulli Gradient pressu ?? 3.2 mmHg ? Gradient pressu ? 1 mmHg PV Antegrade Flow Peak Velocity ( ??0.81 m/s ?Mean Velocity ( ??0.55 m/s Velocity Time I ??18.7 cm ? PV Antegrade Flow Simplified Bernoulli Gradient pressu ?? 2.6 mmHg ? Gradient pressu ?? 1.4 mmHg Tricuspid Valve ?? Tricuspid Valve ??0.48 m/s ?Tricuspid Valve ??0.41 m/s TV Regurgitant Flow MaximumTricuspi ??1.64 m/s ?MaximumTricuspi ??10.7 mmHg ?2D Aorta ?? Ao Asc ?3.09 cm ?? (zsc 3.8)* Left Atrium ?? Left Atrium Vol ??21.2 ml/m2 ? LA Biplane Left Atrium Vol ??31.4 ml ? LA Single Plane Left Atrium vilma ??4.18 cm ? Left Atrium vilma ??3.94 cm ?? Left Atrium Vol ??23.1 ml ? Left Atrium Vol ??40.4 ml ?? Left Ventricle ?? LV EDV ?71 ml ?LV EF ? 51.8 % ?? LV ESV ?34.2 ml ?Left Ventricula -16.1 % ?? Left Ventricula -16.1 % ? LV Single Plane LVEDV ? 75 ml ? Right Atrium ?? RA sys Area ? 11 cm2 ? Right Ventricle ?? Right Ventricul ??2.42 cm ? RVIDd ? 3.51 cm ?MMODE Left Ventricle ?? LVIDd ? 5.38 cm ?? (zsc 2.2)* LV EF ? 55.2 % ?(45-90) LV%fs ? 29 % ?(28-41) LV Teichholz Interventricula ??0.81 cm ? Left Ventricle ?? 3.82 cm ?? Left Ventricle ?? 0.81 cm ? Tricuspid Valve ?? Tricuspid annul ??1.76 cm ? <Electronic Signature> 06/18/2022 09:45 PM Micah Love M.D. Procedure Note Micah Love MD - 06/18/2022 Echocardiography Report Pat.Name: DOTTIE HUANG Pat.ID: [id number] .Date: 06/16/2022 Exam Time: 12:13:00 PM Study Type:ECHO WITH CARDIAC DOPPLER COMP Height: 65 in Weight: 101 lb BSA: 1.48 m2 Age: 5 1945,76Y Sex: F BP: 150/75 Sonogrphr: Mague Lau Pat. Stat.:Outpatient CPT - 4: [id number] Reason for Study:Syncope/pre-syncope Procedures: 2D, M-mode, Doppler, Color Flow Race: W ++++++++++++++++++++++++++++++++++++ SUMMARY: ++++++++++++++++++++++++++++++++++++ The left ventricular size is normal. The left ventricular systolic function is normal. Estimated left ventricular ejection fraction is 55-60%. Mild concentric left ventricular hypertrophy. Left ventricular diastolic function is indeterminate. The right ventricular size is normal. Right ventricular systolic function is normal. Mild to moderate mitral regurgitation. ++++++++++++++++++++++++++++++++++++ FINDINGS: ++++++++++++++++++++++++++++++++++++ LV: The left ventricular size is normal. The left ventricular systolic function is normal. Estimated left ventricular ejection fraction is 55-60%. Mild concentric left ventricular hypertrophy. The septal E/e' is indeterminate at 8-15. The lateral E/e' is normal at <8. Left ventricular diastolic function is indeterminate. The LV Strain is -16.6. WM: Wall motion appears normal in all segments. RV: The right ventricular size is normal. Right ventricular systolic function is normal. TAPSE = 17.6mm (<16 mm indicates systolic RV dysfunction). LA: The left atrial volume is normal ( less than 34 ml/M2). RA: The right atrial size is normal. JIMMIE: No evidence of pericardial effusion. AO: Normal aortic root. The proximal ascending aorta measures 3.09cm. PA: The peak pulmonary artery systolic pressure is estimated to be approximately 13.0 mmHg. Estimated right atrial pressure of 3 mmHg. SVn: Inferior vena cava is normal. Inferior vena cava shows >50% collapse with respiration consistent with normal right atrial pressure. AV: Structurally normal aortic valve. The aortic valve is trileaflet. No evidence of aortic valve stenosis. No evidence of aortic valve regurgitation. MV: Structurally normal mitral valve. Mild to moderate mitral regurgitation. No evidence of mitral stenosis. PV: Structurally normal pulmonic valve. Trace pulmonic regurgitation. No evidence of pulmonic valve stenosis. TV: Structurally normal tricuspid valve. Mild tricuspid regurgitation. No evidence of tricuspid valve stenosis. ++++++++++++++++++++++++++++++++++++ MEASUREMENTS: ++++++++++++++++++++++++++++++++++++ DOPPLER Pulmonary Veins PVnpkVeld 39 cm/s S1-wave velocit 0.67 m/s PVnVs/Vd 1.73 Pulmonary Vein 0.56 m/s AV Regurg Flow AV TVI 190 cm MV Forward Flow MV P1/2t 0.09 second (30-60)* MV Regurg Flow MV mnPG 82.8 mmHg MV pkPG 99.6 mmHg MV mnVel 454 cm/s MV pkVel 499 cm/s (60-130)* TV Forward Flow TV E/A 1.16 Aortic Valve Cardiovascular 2.05 cm Aortic Root Luis Alberto 3.28 cm LVOT/AoV (PATIENT ADMITTING CLERK) ( 0.59 Left atrial luis alberto 3.12 cm AV Antegrade Flow Peak Velocity ( 1.42 m/s Mean Velocity ( 0.96 m/s Velocity Time I 31.6 cm AV Antegrade Flow Simplified Bernoulli Gradient pressu 8.1 mmHg Gradient pressu 4 mmHg AV Continuity Equation by Velocity Time Integral Aortic Valve Ar 1.98 cm2 AoV Area Index 1.34 Left Ventricle Stroke Volume ( 62.6 ml Cardiac Output 3.82 liter per minute LV Antegrade Flow Peak Velocity ( 0.84 m/s Mean Velocity ( 0.56 m/s Velocity Time I 19 cm LV Antegrade Flow Simplified Bernoulli Gradient pressu 2.8 mmHg Gradient pressu 1.4 mmHg Mitral Valve Mitral Valve E- 0.273 second Mitral Valve E 0.83 Myocardial Velo 8.4 centimeter/second Mean Myocardial 7.1 centimeter/second Myocardial Velo 5.7 centimeter/second Ratio of Mitral 9.1 Myocardial Velo 11.5 centimeter/second Ratio of Mitral 7.69 Myocardial Velo 11.8 centimeter/second Ratio of Mitral 11.3 Isovelocity rel 0.13 second Mean Myocardial 11.7 centimeter/second Heart rate 62 Heart beat per minute MV Antegrade Flow Mitral Valve E- 0.65 m/s Velocity Time I 29 cm Mitral Valve A- 0.78 m/s Mean Velocity ( 0.47 m/s Peak Velocity ( 0.89 m/s MV Antegrade Flow Simplified Bernoulli Gradient pressu 3.2 mmHg Gradient pressu 1 mmHg PV Antegrade Flow Peak Velocity ( 0.81 m/s Mean Velocity ( 0.55 m/s Velocity Time I 18.7 cm PV Antegrade Flow Simplified Bernoulli Gradient pressu 2.6 mmHg Gradient pressu 1.4 mmHg Tricuspid Valve Tricuspid Valve 0.48 m/s Tricuspid Valve 0.41 m/s TV Regurgitant Flow MaximumTricuspi 1.64 m/s MaximumTricuspi 10.7 mmHg 2D Aorta Ao Asc 3.09 cm (zsc 3.8)* Left Atrium Left Atrium Vol 21.2 ml/m2 LA Biplane Left Atrium Vol 31.4 ml LA Single Plane Left Atrium vilma 4.18 cm Left Atrium vilma 3.94 cm Left Atrium Vol 23.1 ml Left Atrium Vol 40.4 ml Left Ventricle LV EDV 71 ml LV EF 51.8 % LV ESV 34.2 ml Left Ventricula -16.1 % Left Ventricula -16.1 % LV Single Plane LVEDV 75 ml Right Atrium RA sys Area 11 cm2 Right Ventricle Right Ventricul 2.42 cm RVIDd 3.51 cm MMODE Left Ventricle LVIDd 5.38 cm (zsc 2.2)* LV EF 55.2 % (45-90) LV%fs 29 % (28-41) LV Teichholz Interventricula 0.81 cm Left Ventricle 3.82 cm Left Ventricle 0.81 cm Tricuspid Valve Tricuspid annul 1.76 cm <Electronic Signature> 06/18/2022 09:45 PM Micah Love M.D. us Stuart Garrett MD ECHO Final Result * X-RAY EXAM CHEST 1 VIEW (05/27/2022) us Default History Genericprovider OTHER Final Result * CT HEAD OR BRAIN W/O CON (05/27/2022) Anatomical Region Laterality Modality Computed Tomogra phy us Default History Genericprovider CT Final Result * ECG 12 lead (05/27/2022) us Default History Genericprovider ECG ORDERABLES Edited Result - Final documented in this encounter Visit Diagnoses Diagnosis Syncope- Primary Syncope and collapse Syncope Syncope and collapse Syncope Syncope and collapse documented in this encounter Care Teams Chisel Worker Relationship Specialty Start Date End Date Mary Fabian MD [address] [place] [address] PCP - General FAMILY PRACTICE 08/25/19 documented as of this encounter
--- OUTSIDE RECORDS SUMMARY | 2024-03-18 22:35 | XMS_ITS | Encounter Summary ---
Author Organization [facility] Address [address] [place] [address]. [place] [address] [place] [address] Care Team Providers Care Supervisor Rice Milling Name Role Phone Beau Clement MD Primary Care Provider [phone] Reason for Visit * Reason Onset Date Comments Results 07/09/2022 Encounter Details Date Type Department Care Team (Late st Contact Info) Description 07/09/2022 Telephone [place] [phone] Emelyn Basurto, RN Results Social History Tobacco [...] Progress Notes * Emelyn Basurto RN - 07/09/2022 3:31 PM CDT No significant arrhythmia burden No symptom rhythm correlation. Above message from Dr. Garrett (after review of the monitor). [employer] message sent to the patient with the above information. 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 [facility] [address] [place], [place] [phone] documented as of this encounter Visit Diagnoses Not on filedocumented in this encounter Care Teams Supervisor Rice Milling Relationship Specialty Start Date End Date Beau Clement MD [address] [facility] [place], [place] [phone] PCP - General FAMILY PRACTICE 08/25/19 documented as of this encounter
--- OUTSIDE RECORDS SUMMARY | 2024-03-18 22:35 | XMS_ITS | Encounter Summary ---
Author Organization [facility] Address [address] [place] [address]. [place] [address] [place] [address] Care Team Providers Care Beater Out Leveling Machine Name Role Phone Mary Fabian MD Primary Care Provider [phone] Reason for Visit * Reason Comments Supraventricular Tachycardia yearly Encounter Details Date Type Department Care Team (Late st Contact Info) Description 05/26/2021 10:15 AM CDT Office Visit [facility] [address] [place], [place] [address] Colette Garrett MD [facility]. [facility] [address] [place], [place] [id number] Julisa Cummings PA-C [facility] [address] [place], [place] [address] Supraventricular Tachycardia (yearly ) Social History Tobacco Use Types Packs/Day Years [...] Recorded In the last 10 days, have alfredito antoine been in contact with someone who was confirmed or suspected to have Coronavirus/COVID-19? No / Unsure 05/25/2021 10:19 AM CDT documented as of this encounter Last Filed Vital Signs Vital Sign Reading Time Taken Comments Blood Pressure 164/82 05/26/2021 10:00 AM CDT Pulse 55 05/26/2021 10:00 AM CDT Temperature - - Respiratory Rate - - Oxygen Saturation 98% 05/26/2021 10:00 AM CDT Inhaled Oxygen Concentration - - Weight 48.5 kg (107 lb) 05/26/2021 10:00 AM CDT Height 165.1 cm (5' 5 ) 05/26/2021 10:00 AM CDT Body Mass Index 17.81 05/26/2021 10:00 AM CDT documented in this encounter Progress Notes * Julisa Cummings PA-C - 05/26/2021 10:15 AM CDT Reason for Visit: Supraventricular Tachycardia (yearly ) History of Present Illness: Dottie Huang is a 75-year-old female with a past medical history of syncope, palpitations, andhypertension here today for scheduled follow up appointment. Patient has been doing well since her last office visit. No new chest pain, dyspnea, palpitations, irregular heart beats, near-syncope, fatigue, orthopnea, claudication or lower extremity edema. Patient denies any further syncopal episodes. Patient remains mindful of her diet and tries to remain as active as possible. Patient reports that overall she doing well from an electrophysiology standpoint. Recommendations and Plan: 1. Syncope: No further episodes 2. 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 Hypertension: Elevated Overall Dottie Huang is doing well from an electrophysiology standpoint. ECG today shows sinu bradycardia with stable FL and QT intervals. No significant sustained arrhthymias at this time. Still with some palpitations. Would consider a implantable loop recorder??should she have any recurrent syncopal episodes or worsening palpitations. Her blood pressure is elevated today. Suspect a componen t of white coat hypertension. Encouraged her to remain active and mindful of her diet. It is my pleasure to participate in [facility]. We will follow up with the patient in 1 year or sooner if needed. Data Reviewed ECG today shows sinus bradycardia with stable FL and QT intervals EP Study 09/21/2019: SVT induced in EP [...] noted. ? Medications: Current Outpatient Medications: ??? donepezil 5 MG Tab, Take 1 tablet by mouth nightly., Disp: , Rfl: ??? aspirin EC 81 MG tablet, Take 81 mg by mouth every morning., Disp: , Rfl: ??? atorvastatin 10 MG tablet, Take 10 mg by mouth daily., Disp: , Rfl: ??? calcium carb-cholecalciferol 250-125 MG-UNIT tablet, Take 1 tablet by mouth daily., Disp: , Rfl: ??? calcium-vitamin D 250-125 MG-UNIT tablet, Take 1 tablet by mouth daily., Disp: , Rfl: ??? ibandronate 150 MG [...] History Tobacco Use ??? Smoking status: Never Smoker ??? Smokeless tobacco: Never Used Substance Use Topics ??? Alcohol use: Yes Comment: 2 glasses of wine /week ??? Drug use: Never Family History Problem Relation Name Age of Onset ??? Heart Attack Mother ??? Heart Attack Father Family Status Relation Name Status ??? Mother ??? Father ??? Sister Alive, age 72y Review of Systems Constitutional: Negative for recent unintentional weight gain, recent unintentional weight loss andnew or significant fatigue. HENT: Negative for new or significant hearing loss. Eyes: Negative for blurred vision and double vision. Respiratory: Negative for cough, new or significant shortness of breath and snoring. Cardiovascular: Negative for chest pain, palpitations, claudication, leg swelling and PND. Gastrointestinal: Negative for blood in stool and melena. Genitourinary: Negative for dysuria. Musculoskeletal: Negative for myalgias and new or worsening joint stiffness/pain. Skin: Negative for rash. Neurological: Negative for tingling/numbness and focal weakness. Endo/Heme/Allergies: Negative for new or significant bruising/bleeding and polydipsia. Psychiatric/Behavioral: Negative for depression and new or significant memory loss. Vitals: 05/26/21 1000 BP: (!) 164/82 Pulse: 55 Body mass index is 17.81 kg/m??. Physical Exam Constitutional: No distress. HENT: Mask in place. Eyes: Conjunctivae normal. Neck: Normal range of [...] Normal heart sounds. Normal S1 and Normal S2 No gallop. No S3 sound. No S4 sound and No murmur. Cardiovascular Comments: Diagnoses/Impression: 1. SVT (supraventricular tachycardia) ([facility]) ELECTROCARDIOGRAM Referring Provider: No ref. provider found PCP: MARY FABIAN MD documented in this encounter Plan of Treatment Upcoming Encounters Date Type Department Care Team (Late st Contact Info) Description 02/05/2025 10:00 AM CIRCULATION REPRESENTATIVE Office Visit [facility], [place] [address] [place] [address] Colette Garrett MD Three [facility]. [place] [address] [place] [address] documented as of this encounter Procedures Procedure Name Priority Date/Time Associated Diagnosis Comments ELECTROCARDIOGRAM (NON MIDMARK ACQUIRED) Routine 05/26/2021 10:08 AM CDT SVT (supraventricular tachycardia) documented in this encounter Results * ELECTROCARDIOGRAM (05/26/2021 10:08 AM CDT) 05/26/2021 10:0 8 AM CDT Narrative [facility] - 06/02/2021 7:12 PM CDT ?[facility], O? [facility] ? Test Date: ?2021-05-26 Pat Name: ? DOTTIE ABDIPPARD ?Department: ? Room: ? Gender: ? Female ? Tandem Operator: ?? : ?1945 ? Requested By: COLETTE SHARON Order Number: [id number] ?Reading MD: ?? Shawn Caputo ? Measurements Intervals ?Harmony ? Rate: ? 50 ? P: ?63 FL: ? 168 ?QRS: ?34 QRSD: ? 112 ?T: ?70 QT: ? 451 ? QTc: ?412 ? Interpretive Statements SINUS BRADYCARDIA SEPTAL MYOCARDIAL INFARCTION, OF INDETERMINATE AGE Since prior tracing no significant change Procedure Note Shawn Caputo MD - 06/02/2021 [facility], O? [facility] Test Date: 2021-05-26 Pat Name: DOTTIE HUANG Department: Room: Gender: Female Tandem Operator: : 1945 Requested By: COLETTE GARRETT Order Number: [id number] Reading MD: Shawn Caputo Measurements Intervals Harmony Rate: 50 P: 63 FL: 168 QRS: 34 QRSD: 112 T: 70 QT: 451 QTc: 412 Interpretive Statements SINUS BRADYCARDIA SEPTAL MYOCARDIAL INFARCTION, OF INDETERMINATE AGE Since prior tracing no significant change us Colette Garrett MD PROCEDURES-ORDERABLE NO CHARGE F inal Result [facility] documented in this encounter Visit Diagnoses Diagnosis SVT (supraventricular tachycardia) ([facility])- Primary Other specified cardiac dysrhythmias documented in this encounter Care Teams Beater Out Leveling Machine Relationship Specialty Start Date End Date Mary Fabian MD [address] [place] [address] PCP - General FAMILY PRACTICE 08/25/19 documented as of this encounter
--- OUTSIDE RECORDS SUMMARY | 2024-03-18 22:35 | XMS_ITS | Encounter Summary ---
Author Organization [facility] Address [address] [place] [address]. [place] [address] [place] [address] Care Team Providers Care Associate Music Professor Name Role Phone Beau Clement MD Primary Care Provider + [phone] Encounter Details Date Type Department Care Team (Latest Contact Info) Description 01/27/2021 Travel Social History Tobacco Use Types Packs/Day [...] st Contact Info) Description 02/05/2025 10:00 AM FOSTER PARENT Office Visit [facility] THREE [facility], [place] [address] [place] [address] Stuart Garrett MD [facility]. [facility] [address] [place] [address] documented as of this encounter Visit Diagnoses Not on filedocumented in this encounter Care Teams Associate Music Professor Relationship Specialty Start Date End Date Beau Clement MD [address] [facility] [place], [place] [phone] PCP - General FAMILY PRACTICE 08/25/19 documented as of this encounter
--- OUTSIDE RECORDS SUMMARY | 2024-03-18 22:35 | XMS_ITS | Encounter Summary ---
Author Organization [facility] Address [address] [place] [address]. [place] [address] [place] [address] Care Team Providers Care Car Cleaning Supervisor Name Role Phone Beau Clement MD Primary Care Provider + [phone] Reason for Referral * Imaging (Routine) - Closed Specialty Diagnoses / Procedures Referred By Contac t Referred To Contact RADIOLOGY Diagnoses Syncope Procedures USE ECHOCARDIOGRAM Stuart Garrett MD [address] [address] Phone: tel: fax: Referral ID Status Reason Start Date Expiration Date Visits Re quested Visits Authorized [id number] Closed 05/29/2022 06/29/2023 1 1 Reason for Visit * Imaging (Routine) - Closed Specialty Diagnoses / Procedures Referred By Contac t Referred To Contact RADIOLOGY Diagnoses Syncope Procedures USE ECHOCARDIOGRAM Stuart Garrtet MD [address] [address] Phone: tel: fax: Referral ID Status Reason Start Date Expiration Date Visits Re quested Visits Authorized [id number] Closed 05/29/2022 06/29/2023 1 1 Encounter Details Date Type Department Care Team ([facility] st Contact Info) Description 06/16/2022 11:59 AM CDT - 06/16/2022 11:59 PM CDT Hospital Encounter [facility] [place] [address] Stuart Garrett MD Three [facility]. [place] [address] [place], [place] [address] Discharge Disposition: Home or Self Care (Routine [...] AM CDT documented as of this encounter Medications at Time of Discharge aspirin EC 81 MG tablet Take 81 mg by mouth every morning. atorvastatin (LIPITOR) 40 MG tablet 01/26/2022 calcium-vitamin D 250-125 MG-UNIT tablet Take 1 tablet by mouth daily. donepezil (ARICEPT) 10 MG Tab 04/13/2022 gabapentin (NEURONTIN) 100 MG capsule Take 1 capsule (100 mg total) by mouth 2 (two) times daily. 04/22/2022 ibandronate 150 MG tablet 12/13/2020 metoprolol succinate ER 25 MG 24 hr tablet Take 25 mg by mouth every morning. 07/19/2019 Multiple Vitamin (MULTIVITAMIN) capsule Take 1 capsule by mouth daily. documented as of this encounter Plan of Treatment Upcoming Encounters Date Type Department Care Team (Late Contact Info) Description 02/05/2025 10:00 AM KARATE INSTRUCTOR Office Visit [facility] [place], [place] [address] [place] [address] Stuart Garrett MD Three [facility]. [place] [address] [place] [address] documented as of this encounter Procedures Procedure Name Priority Date/Time Associated Diagnosis Comments USE ECHOCARDIOGRAM Routine 06/16/2022 12 :41 PM CDT Syncope documented in this encounter Results * USE ECHOCARDIOGRAM (06/16/2022 12:41 PM CDT) Anatomical Region Laterality Modality Cardiac Echocardiogram 06/16/2022 12:1 3 PM CDT Narrative 06/18/2022 9:45 PM CDT ?Echocardiography Report Pat.Name: ??DOTTIE HUANG ?Pat.ID: ?[id number] ? St.Date: ?? 06/16/2022 ? Exam Time: 12:13:00 PM ? Study Type:ECHO WITH CARDIAC DOPPLER COMP Height: ?65 in ? Weight: ?101 lb ?BSA: ? 1.48 m2 ?Age: ??1945,76Y ?Sex: ? F ? BP: ?150/75 ?Sonogrphr: [place], [place] RCS ? Pat. Stat.:Outpatient ?CPT - 4: ?[id number] ? Reason for Study:Syncope/pre-syncope Procedures: 2D, M-mode, [...] Cardiovascular ?? 2.05 cm ? Aortic Root Desire ??3.28 cm ?? LVOT/AoV (METAL CASKET ASSEMBLER) ( ??0.59 ?Left atrial desire ??3.12 cm ?? AV Antegrade Flow Peak [...] 06/18/2022 Echocardiography Report Pat.Name: DOTTIE HUANG Pat.ID: [id number] .Date: 06/16/2022 Exam Time: 12:13:00 PM Study Type:ECHO WITH CARDIAC DOPPLER COMP Height: 65 in Weight: 101 lb BSA: 1.48 m2 Age: 5 1945,76Y Sex: F BP: 150/75 Sonogrphr: Mague Lau Pat. Stat.:Outpatient CPT - 4: 14988 Reason for Study:Syncope/pre-syncope Procedures: 2D, M-mode, Doppler, [...] Aortic Valve Cardiovascular 2.05 cm Aortic Root Desire 3.28 cm LVOT/AoV (METAL CASKET ASSEMBLER) ( 0.59 Left atrial desire 3.12 cm AV Antegrade Flow Peak Velocity [...] us Stuart Garrett MD ECHO Final Result documented in this encounter Visit Diagnoses Diagnosis Syncope Syncope and collapse documented in this encounter Care Teams Car Cleaning Supervisor Relationship Specialty Start Date End Date Beau Clement MD [address] [place] [address] PCP - General FAMILY PRACTICE 08/25/19 documented as of this encounter
--- OUTSIDE RECORDS SUMMARY | 2024-03-18 22:35 | XMS_ITS | Encounter Summary ---
Author Organization [facility] Address [address] [place] [address]. [place] [address] [place] [address] Care Team Providers Care Logistics Planning Engineer Name Role Phone Beau Clement MD Primary Care Provider + [phone] Encounter Details Date Type Department Care Team (Latest Contact Info) Description 05/29/2022 Travel Social History Tobacco Use Types Packs/Day [...] st Contact Info) Description 02/05/2025 10:00 AM EDUCATION TEACHER Office Visit [facility] THREE [facility] [place] [address] [place] [address] Stuart Garrett MD [facility]. [facility] [address] [place], [place] [phone] documented as of this encounter Visit Diagnoses Not on filedocumented in this encounter Care Teams Logistics Planning Engineer Relationship Specialty Start Date End Date Beau Clement MD [address] [place] [address] PCP - General FAMILY PRACTICE 08/25/19 documented as of this encounter
--- OUTSIDE RECORDS SUMMARY | 2024-03-18 22:35 | XMS_ITS | Encounter Summary ---
Author Organization [facility] Address [address] [place] [address]. [place], [place] [address] [place] [address] Care Team Providers Care Resource Center Teacher Name Role Phone Mary Fabian MD Primary Care Provider + [phone] Reason for Referral * Surgical (Routine) - Closed Specialty Diagnoses / Procedures Referred By Contac t Referred To Contact Procedures Case request operating room: INJECTION EPIDURAL TRANSFORAMINAL l45 and [id number] Izabela Navarro MD Three [facility] [address] [place] [address] Phone: tel: fax: Referral ID Status Reason Start Date Expiration Date Visits Re quested Visits Authorized [id number] Closed 01/09/2021 02/08/2022 1 1 Reason for Visit * Auth/Cert Specialty Diagnoses / Procedures Referred By Contac t Referred To Contact Diagnoses lum rad Procedures INJECTION EPIDURAL TRANSFORAMINAL l45 and l5s1 Referral ID Status Reason Start Date Expiration Date Visits Re quested Visits Authorized [id number] 1 1 Encounter Details Date Type Department Care Team (Latest Contact Info) Description 01/09/2021 9:31 AM CDT - 01/09/2021 10:52 AM CDT Hospital Encounter [facility] Interventional [place] [address] [id number] Izabela Navarro MD Three [facility] [address] [place] [address] Discharge Disposition: Home or Self Care (Routine [...] Hopkins RN - 01/09/2021 10:36 AM CDT [place] Interventional Pain Management Discharge Instructions WHAT TO [...] DOCTOR AND HOW TO REACH US: Call [phone]. [phone] for scheduling, insurance questions or speak with [...] were discussed with the patient and/or family/personal phone representative. Questions were answered and the patient/family/personal phone representative verbalized understanding and desires to proceed. Previous Adverse Experience with Sedation, Analgesia, or Anesthesia? No Risk benefits and alternate treatments were discussed. Signed: IZABELA NAVARRO MD 10:27 AM Source Note - [...] epidural steroid injections in approximately 2010 at [facility], which provided long- lasting improvement, states years [...] her pain. Previous treatments tried: She underwent insurance healthcare representative at [facility] in [place], [place] 3 to 4 years ago, did notice some temporary improvement with the treatments. She received epidural steroid injections at [facility] 10 to 11 years ago, which she [...] Gatherings with Friends and Family: ??? Attends [employer]: ??? Active Member of Clubs or [...] left groin. Right foot pain, follows with fancy packer Obi Gabriel MD, has undergone injections the [...] x-ray of the sacroiliac joints on 11/08/2020 [facility]. The radiologist report was reviewed and [...] Jasen Quick M.D. ML: ALYSON Report ID: [id number] Reading Location: [place] [address] She had an MRI of the lumbar [...] st Contact Info) Description 02/05/2025 10:00 AM SPINDLE FRAME CARVER Office Visit [facility] THREE [facility] [address] [place] [address] Stuart Garrett MD [facility]. [facility] [address] [place] [address] documented as of this encounter Procedures Procedure [...] MD) documented in this encounter Care Teams Resource Center Teacher Relationship Specialty Start Date End Date Mary Fabian MD [address] [place] [address] PCP - General FAMILY PRACTICE 08/25/19 documented as of this encounter
--- OUTSIDE RECORDS SUMMARY | 2024-03-18 22:35 | XMS_ITS | Encounter Summary ---
Author Organization [facility] Address [address] [place] [address]. [place] [address] [place] [address] Care Team Providers Care Core Composer Machine Tender Name Role Phone Beau Clement MD Primary Care Provider + [phone] Encounter Details Date Type Department Care Team (Latest Contact Info) Description 07/20/2022 Travel Social History Tobacco Use Types Packs/Day [...] st Contact Info) Description 02/05/2025 10:00 AM MBA INTERNSHIP Office Visit [facility], [place] [address] [place] [address] Stuart Garrett MD [facility]. [facility] [address] [place], [place] [phone] documented as of this encounter Visit Diagnoses Not on filedocumented in this encounter Care Teams Core Composer Machine Tender Relationship Specialty Start Date End Date Beau Clement MD [address] [place] [address] PCP - General FAMILY PRACTICE 08/25/19 documented as of this encounter
--- OUTSIDE RECORDS SUMMARY | 2024-03-18 22:35 | XMS_ITS | Encounter Summary ---
Author Organization [facility] Address [address] [place] [address]. [place], [place] [address] [place] [address] Care Team Providers Care Clinical Cytogeneticist Name Role Phone Beau Clement MD Primary Care Provider + [phone] Encounter Details Date Type Department Care Team (Late st Contact Info) Description 06/01/2022 Abstract [facility] [address] [address] Majo Carter MA Social History Tobacco Use Types Packs/Day Years [...] (Late Contact Info) Description 02/05/2025 10:00 AM GAME PROGRAMMER Office Visit [facility] THREE [facility], [place] [address] [place], [place] [id number] Stuart Garrett MD Three [facility]. [place] [address] [place] [address] documented as of this encounter Procedures Procedure Name Priority Date/Time Associated Diagnosis Comments NT-PRO BNP [place]IST[place] Routine 05/27/2022 PROTIME (OUTSIDE LAB) Routine 05/27/2022 CBC (OUTSIDE LAB) Routine 05/27/2022 COMPREHENSIVE METABOLIC PANEL Routine 05/27/2022 MAGNESIUM Routine 05/27/2022 documented in this encounter Results * Nt-Pro Bnp [place] (05/27/2022) PRO-BRAIN NATRIURETIC PEPTIDE 380 05/27/2022 us Default History Genericprovider GENERAL SUPPLY & EQUIPMENT ORDERABLES Final Result * PROTIME (OUTSIDE LAB) (05/27/2022) PROTIME 12.7 INR 1.0 05/27/2022 us Default History Genericprovider LAB-OUTSIDE/ABST RACTED Final Result * MAGNESIUM (05/27/2022) MAGNESIUM 2.1 05/27/2022 us Default History Genericprovider LABORATORY Final Result * COMPREHENSIVE METABOLIC PANEL (05/27/2022) SODIUM S/P/B 141 POTASSIUM S/P/B 4.3 CO2 28 CHLORIDE S/P/B 105 GLUCOSE 95 mg/dL CALCIUM S/P/B 9.0 BUN 15 CREATININE S/P/B 0.70 0.5 - 1.0 EGFR NON-AFR. AMER. >60 <=90 ALKALINE PHOSPHATASE S/P/B 53 ALT 26 AST 34 BILIRUBIN TOTAL S/P/B 0.5 ALBUMIN S/P/B 4.1 3.5 - 5.0 TOTAL PROTEIN S/P/B 7.0 05/27/2022 us Default History Genericprovider LABORATORY Edited Result - Final * CBC (OUTSIDE LAB) (05/27/2022) WBC 8.3 HGB 12.3 HCT 38.2 PLT 286 05/27/2022 us Default History Genericprovider LAB-OUTSIDE/ABST RACTED Final Result documented in this encounter Visit Diagnoses Not on filedocumented in this encounter Care Teams Clinical Cytogeneticist Relationship Specialty Start Date End Date Beau Clement MD [address] [place], [place] [phone] PCP - General FAMILY PRACTICE 08/25/19 documented as of this encounter
--- OUTSIDE RECORDS SUMMARY | 2024-03-18 22:35 | XMS_ITS | Encounter Summary ---
Author Organization [facility] Address [address] [place] [address]. [place] [address] [place] [address] Care Team Providers Care Gypsum Roofer Name Role Phone Beau Clement MD Primary Care Provider + [phone] Encounter Details Date Type Department Care Team (Latest Contact Info) Description 12/12/2020 Travel Social History Tobacco Use Types Packs/Day [...] st Contact Info) Description 02/05/2025 10:00 AM DIETITIAN TEACHING Office Visit [facility], [place] [address] [place] [address] Stuart Garrett MD [facility]. [facility] [address] [place] [address] documented as of this encounter Visit Diagnoses Not on filedocumented in this encounter Care Teams Gypsum Roofer Relationship Specialty Start Date End Date Beau Clement MD [address] [facility] [address] [place], [place] [phone] PCP - General FAMILY PRACTICE 08/25/19 documented as of this encounter
--- OUTSIDE RECORDS SUMMARY | 2024-03-18 22:35 | XMS_ITS | Encounter Summary ---
Author Organization [facility] Address [address] [place] [address]. [place] [address] [place] [address] Care Team Providers Care Regrinder Operator Name Role Phone Mary Fabian MD Primary Care Provider [phone] Reason for Visit * Reason Comments Supraventricular Tachycardia annual * Consultation/Treatment (Routine) - Authorized Specialty Diagnoses / Procedures Referred By Contac t Referred To Contact CARDIOLOGY / Cardiology Diagnoses SVT (supraventricular tachycardia) ([facility]/HCC [facility]) Mary Fabian MD [address] [facility] [place] [address] Phone: tel: fax: Colette Garrett MD Three [facility]. [facility] [address] [place] [address] Phone: tel: fax: Referral ID Status Reason Start Date Expiration Date V isits Requested Visits Authorized [id number] Authorized 01/06/2024 01/06/2025 8 8 Encounter Details Date Type Department Care Team (Late st Contact Info) Description 01/31/2024 10:00 AM ACCOUNTS ADJUSTABLE CLERK Office Visit [facility] THREE [facility], [place] [address] [place] [address] Colette Garrett MD Three [facility]. [place] [address] [place] [id number] Supraventricular Tachycardia (annual) Social History Tobacco Use [...] Comments Blood Pressure 122/64 01/31/2024 9:49 AM ACCOUNTS ADJUSTABLE CLERK Pulse 49 01/31/2024 9:49 AM ACCOUNTS ADJUSTABLE CLERK Temperature - - Respiratory Rate - - Oxygen Saturation - - Inhaled Oxygen Concentration - - Weight 46.7 kg (103 lb) 01/31/2024 9:49 AM ACCOUNTS ADJUSTABLE CLERK Height 165.1 cm (5' 5 ) 01/31/2024 9:49 AM ACCOUNTS ADJUSTABLE CLERK Body Mass Index 17.14 01/31/2024 9:49 AM ACCOUNTS ADJUSTABLE CLERK documented in this encounter Progress Notes * Colette Garrett MD - 01/31/2024 10:00 AM CST Reason for Visit: Supraventricular Tachycardia (annual) History of Present Illness Dottie Huang is a 78-year-old female with a past medical history of [...] Hypertension: Elevated Overall Dottie Huang is doing ok from an electrophysiology standpoint. Etiology remains unclear. Would recommend we proceed with a 30 day event monitor to assess for any supraventricular or ventricular arrhythmia that may have contributed to the event. Will check an echocardiogram as well to reassess her LVEF and to assess for any structural heart changes as the cause. Further recommendations pending results. Her blood pressure is elevated today. Suspect a component of white coat hypertension combined with discomfort from recent fall. Encouraged her to remain active and mindful of her diet. It is my pleasure to participate in Dottie Huang's care. We will follow up with the patient in1 year or sooner if needed. Data Reviewed EP [...] symptom/rhythm correlation noted. Medications: Current Outpatient Medications: ??? memantine (NAMENDA) 10 MG tablet, Take 1 tablet (10 mg total) by [...] MG Tab, , Disp: , Rfl: ??? gabapentin (NEURONTIN) 100 MG capsule, Take 1 capsule (100 mg total) by mouth 2 (two) times daily., Disp: , Rfl: ??? ibandronate 150 MG tablet, , Disp: , Rfl: ??? metoprolol succinate ER 25 MG 24 hr tablet, Take 25 mg by mouth every morning., Disp: , Rfl: ??? Multiple Vitamin (MULTIVITAMIN) capsule, Take 1 capsule by mouth daily., Disp: , Rfl: Review of patient's allergies indicates: Allergen Reactions ??? Celecoxib Other (see comment) [...] Mother ??? Father ??? Sister Alive, age 75y No partnership data on file Review of Systems Constitutional: Negative for recent unintentional weight gain, recent unintentional weight loss andnew or significant fatigue. HENT: Negative for new or significant hearing loss. Eyes: Negative for blurred vision and double vision. Respiratory: Negative for cough, new or significant shortness of breath and snoring. Cardiovascular: Positive for palpitations. Negative for chest pain, claudication, leg swelling and PND. Gastrointestinal: Negative for blood in stool and melena. Genitourinary: Negative for dysuria. Musculoskeletal: Negative for myalgias and new or worsening joint stiffness/pain. Skin: Negative for rash. Neurological: Negative for tingling/numbness and focal weakness. Endo/Heme/Allergies: Negative for new or significant bruising/bleeding and polydipsia. Psychiatric/Behavioral: Negative for depression and new or significant memory loss. Vitals: 01/31/24 0949 BP: 122/64 Pulse: (!) 49 Body mass index is 17.14 kg/m??. Cardiac Physical Exam Diagnoses/Impression: 1. SVT (supraventricular tachycardia) ([facility]) ELECTROCARDIOGRAM Referring Provider: Mary Fabian MD PCP: MARY FABIAN MD UNTS ADJUSTABLE CLERK documented in this encounter Plan of Treatment Upcoming Encounters Date Type Department Care Team (Late st Contact Info) Description 02/05/2025 10:00 AM ACCOUNTS ADJUSTABLE CLERK Office Visit [facility] THREE [facility], [address] [place] [address] Colette Garrett MD Three [facility]. [place] [address] [place] [address] documented as of this encounter Procedures Procedure Name Priority Date/Time Associated Diagnosis Comments ELECTROCARDIOGRAM (NON MIDMARK ACQUIRED) Routine 01/31/2024 9:55 AM ACCOUNTS ADJUSTABLE CLERK SVT (supraventricular tachycardia) ([facility]) documented in this encounter Results * ELECTROCARDIOGRAM (01/31/2024 9:55 AM ACCOUNTS ADJUSTABLE CLERK) 01/31/2024 9:55 AM ACCOUNTS ADJUSTABLE CLERK Narrative [facility] - 02/01/2024 7:29 PM ACCOUNTS ADJUSTABLE CLERK ?[facility], O? [facility] ? Test Date: ?2024-01-31 Pat Name: ? DOTTIE HUANG ?Department: ?? 112 ? Room: ? Gender: ? Female ? Enterprise Software Developer: ?? : ?1945 ? Requested By: COLETTE GARRETT Order Number: [id number] ?Reading : ?? Colette Garrett ? Measurements Intervals ?[place] ? Rate: ? 49 ? P: ?29 VT: ? 172 ?QRS: ?-7 QRSD: ? 114 ?T: ?10 QT: ? 469 ? QTc: ?423 ? Interpretive Statements SINUS BRADYCARDIA INCOMPLETE RIGHT BUNDLE BRANCH BLOCK VOLTAGE CRITERIA FOR LVH Compared to ECG dated 05/26/21, findings are similar. UNTS ADJUSTABLE CLERK Procedure Note Colette Garrett MD - 02/01/2024 [facility], O? [facility] Test Date: 2024-01-31 Pat Name: DOTTIE HUANG Department: 112 Room: Gender: Female Enterprise Software Developer: : 1945 Requested By: COLETTE GARRETT Order Number: [id number] Reading MD: Colette Garrett Measurements Intervals [place] Rate: 49 P: 29 VT: 172 QRS: -7 QRSD: 114 T: 10 QT: 469 QTc: 423 Interpretive Statements SINUS BRADYCARDIA INCOMPLETE RIGHT BUNDLE BRANCH BLOCK VOLTAGE CRITERIA FOR LVH Compared to ECG dated 05/26/21, findings are similar. UNTS ADJUSTABLE CLERK us Colette Garrett MD PROCEDURES-ORDERABLE NO CHARGE F inal Result [facility] documented in this encounter Visit Diagnoses Diagnosis SVT (supraventricular tachycardia) ([facility]/HCC [facility]CC)- Primary Other specified cardiac dysrhythmias documented in this encounter Care Teams Regrinder Operator Relationship Specialty Start Date End Date Mary Fabian MD [address] [place] [address] PCP - General FAMILY PRACTICE 08/25/19 documented as of this encounter
--- OUTSIDE RECORDS SUMMARY | 2024-03-18 22:35 | XMS_ITS | Encounter Summary ---
Author Organization [facility] Address [address] [place] [address]. [place] [address] [place] [address] Care Team Providers Care Machine Erector Name Role Phone Mary Fabian MD Primary Care Provider + [phone] Reason for Visit * Reason Comments Supraventricular Tachycardia 6month foll owup * Consultation/Treatment (Routine) - Closed Specialty Diagnoses / Procedures Referred By Contac t Referred To Contact CARDIOLOGY / Cardiology Diagnoses Supraventricular tachycardia ([facility]/HCC [facility]) Hyperlipidemia, unspecified Essential (primary) hypertension Mary Fabian MD [address] [place] [address] Phone: tel: fax: Stuart Garrett MD [facility]. [facility] [address] [place] [address] Phone: tel: fax: Referral ID Status Reason Start Date Expiration Date Visits Re quested Visits Authorized [id number] Closed 05/29/2022 05/31/2023 6 6 Encounter Details Date Type Department Care Team (Late st Contact Info) Description 01/25/2023 10:00 AM INFLATABLE BUILDINGS LAMINATOR Office Visit [facility] THREE [facility], [facility] [address] [place] [address] Julisa Champion PA-C [address] [place], [place] [address] Supraventricular Tachycardia (6month followup) Social History Tobacco Use Types Packs/Day Years [...] Sign Reading Time Taken Comments Blood Pressure 152/78 01/25/2023 9:48 AM INFLATABLE BUILDINGS LAMINATOR Pulse 78 01/25/2023 9:48 AM INFLATABLE BUILDINGS LAMINATOR Temperature - - Respiratory Rate - - Oxygen Saturation - - Inhaled Oxygen Concentration - - Weight 43.5 kg (96 lb) 01/25/2023 9:48 AM INFLATABLE BUILDINGS LAMINATOR Height 165.1 cm (5' 5 ) 01/25/2023 9:48 AM INFLATABLE BUILDINGS LAMINATOR Body Mass Index 15.98 01/25/2023 9:48 AM INFLATABLE BUILDINGS LAMINATOR documented in this encounter Progress Notes * Julisa Cummings PA-C - 01/25/2023 10:00 AM CST Reason for Visit: Supraventricular Tachycardia (6month followup) History of Present Illness Dottie Bryant is a 77-year-old female with a past medical history of Alzheimer's, syncope, palpitations, and hypertension here today for scheduled follow up appointment. She has been doing well since her last follow up. No new chest pain, dyspnea, palpitations, irregular heart beats, fatigue, orthopnea, claudication or lower extremity edema. Patient remains mindful of her diet and tries to remain as active as possible. Patient reports that overall she doing well from an electrophysiology standpoint. Recommendations and Plan: 1. Syncope: no recurrent episodes 2. 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 Hypertension: Elevated Overall Dottie Bryant is doing well from an electrophysiology standpoint. Denies any recent syncopal events. Previous cardiac workup has been reassuring. Denies any SVT episodes. Should she have any further syncopal episodes would consider a implantable loop recorder. Her blood pressure is elevated today. Suspect a component of white coat hypertension. Continue current regimen. Encouraged herto remain active and mindful of her diet. [...] symptom/rhythm correlation noted. Medications: Current Outpatient Medications: memantine (NAMENDA) 10 MG tablet, Take 1 tablet (10 mg total) by mouth 2 (two) times daily., Disp: , Rfl: aspirin EC 81 MG tablet, Take 81 [...] Name Status Mother Father Sister Alive, age 74y Review of Systems Constitutional: Negative for recent [...] and new or significant memory loss. Vitals: 01/25/23 0948 BP: (!) 152/78 Pulse: 78 Body mass index is 15.98 kg/m??. Physical Exam Constitutional: No distress. HENT: [...] sound andNo murmur. Cardiovascular Comments: Diagnoses/Impression: 1. Vasovagal syncope 2. SVT (supraventricular tachycardia) 3. Essential (primary) hypertension Referring Provider: Mary Fabian MD PCP: MARY FABIAN MD ATABLE BUILDINGS LAMINATOR documented in this encounter Plan of Treatment Upcoming Encounters Date Type Department Care Team (Late st Contact Info) Description 02/05/2025 10:00 AM INFLATABLE BUILDINGS LAMINATOR Office Visit [facility] THREE [facility], [place] [address] [place], [place] [id number] Stuart Garrett MD Three [facility]. [place] [address] [place], [place] [phone] documented as of this encounter Visit Diagnoses Diagnosis Vasovagal syncope- Primary Syncope and collapse SVT (supraventricular tachycardia) ([facility]/HCC [facility]) Other specified cardiac dysrhythmias Essential (primary) hypertension Unspecified essential hypertension documented in this encounter Care Teams Machine Erector Relationship Specialty Start Date End Date Mary Fabian MD [address] [facility] [address] [place], [place] [phone] PCP - General FAMILY PRACTICE 08/25/19 documented as of this encounter
--- OUTSIDE RECORDS SUMMARY | 2024-03-18 22:35 | XMS_ITS | Encounter Summary ---
Author Organization [facility] Address [address] [place] [address]. [place] [address] [place] [address] Care Team Providers Care Legal Instruments Examiner Name Role Phone Mary Fabian MD Primary Care Provider [phone] Reason for Visit * Auth/Cert Specialty Diagnoses / Procedures Referred By Contac t Referred To Contact Diagnoses lum rad Procedures INJECTION EPIDURAL TRANSFORAMINAL l45 and l5s1 Referral ID Status Reason Start Date Expiration Date Visits Re quested Visits Authorized [id number] 1 1 Encounter Details Date Type Department Care Team (Late st Contact Info) Description 02/03/2021 9:40 AM CADWORX PIPING DESIGNER - 02/03/2021 10:00 AM CADWORX PIPING DESIGNER Surgery [facility] Inter[facility] [place] [address] [id number] Kylie Navarro MD Three [facility] [address] [place] [address] INJECTION EPIDURAL TRANSFORAMINAL L1-2 and l5-s1 Surgery Details Date/Time Status Location OR Service Patient Class Case Class Case Type Trauma Case? 02/03/2021 9:40 AM Posted [facility] Pain Mgmt Pain Proc Rm Pain Medicine Short Stay/Outpa tient Surgery No Panel 1 Procedure LRB Anes Op Region Wound Class Comments INJECTION EPIDURAL TRANSFORAMINAL L1-2 and l5-s1 Left Local Spine Lumbar Clean # 3 TFESI NO BLOOD THINNERS REF DR. FABIAN SCHED RS 11-4-21 ESSENCE Surgeon Surgeon Role Service Panel Kylie Navarro MD Primary Pain Medicine 1 documented [...] COVID-19? No / Unsure 02/03/2021 8:27 AM CADWORX PIPING DESIGNER documented as of this encounter Last Filed Vital Signs Vital Sign Reading Time Taken Comments Blood Pressure 151/79 02/03/2021 9:45 AM CADWORX PIPING DESIGNER Pulse 64 02/03/2021 9:45 AM CADWORX PIPING DESIGNER Temperature 36.2 ??C (97.2 ??F) 02/03/2021 8:38 AM CS T Respiratory Rate 16 02/03/2021 9:45 AM CADWORX PIPING DESIGNER Oxygen Saturation 99% 02/03/2021 9:45 AM CADWORX PIPING DESIGNER Inhaled Oxygen Concentration - - Weight 49.2 kg (108 lb 6.4 oz) 02/03/2021 8:38 A M CADWORX PIPING DESIGNER Height 160 cm (5' 3 ) 02/03/2021 8:38 AM CADWORX PIPING DESIGNER Body Mass Index 19.2 02/03/2021 8:38 AM CADWORX PIPING DESIGNER documented in this encounter Discharge Instructions * Discharge Instructions* Harper Hopkins RN - 02/03/2021 9:42 AM CADWORX PIPING DESIGNER [place] Interventional Pain Management Discharge Instructions FOLLOW UP [...] DOCTOR AND HOW TO REACH US: Call [phone] ext. [phone] for scheduling, insurance questions or speak with [...] PLEASE GO TO THE EMERGENCY ROOM IMMEDIATELY! ORX PIPING DESIGNER documented in this encounter Medications at Time [...] Patient seen agrees with plan of care ORX PIPING DESIGNER ORX PIPING DESIGNER ORX PIPING DESIGNER documented in this encounter OR Notes * [...] OVER THE NEXT FEW DAYS FOR FOLLOWUP. ORX PIPING DESIGNER documented in this encounter Plan of Treatment Upcoming Encounters Date Type Department Care Team (Late st Contact Info) Description 02/05/2025 10:00 AM CADWORX PIPING DESIGNER Office Visit [facility] THREE [facility], [place] [address] [place], [place] [phone] Stuart Garrett MD Three [facility]. [place] [address] [place], [place] [phone] documented as of this encounter Procedures Procedure Name Priority Date/Time Associated Diagnosis Comments INJECTION EPIDURAL TRANSFORAMINAL 02/03/2021 9:36 AM CADWORX PIPING DESIGNER lum rad XR PAIN CLINIC C-ARM Today 02/03/2021 8:33 AM CADWORX PIPING DESIGNER documented in this encounter Results * XR PAIN CLINIC C-ARM (02/03/2021 8:33 AM CADWORX PIPING DESIGNER) Narrative Radiology, Technologist - 02/03/2021 8:33 AM CADWORX PIPING DESIGNER This report does not contain a radiologist's [...] 0.25 % injection As needed, Starting on Wed02/03/21 at 0944, Until Wed02/03/21 at 0947, Intra-Op Given 02/03/2021 9:44 AM CADWORX PIPING DESIGNER 2 mLs Lumbar Spine chlorhexidine (PERIDEX) 0.12 [...] 61 % injection As needed, Starting on Wed02/03/21 at 0944, Until Wed02/03/21 at 0947, Intra-Op Given 02/03/2021 9:44 AM CADWORX PIPING DESIGNER 5 mLs Lumbar Spine lidocaine (PF) (XYLOCAINE) 1 % injection As needed, Starting on Wed02/03/21 at 0940, Until Wed02/03/21 at 0947, Intra-Op Given 02/03/2021 9:40 AM CADWORX PIPING DESIGNER 2 mLs Back methylPREDNISolone acetate (DEPO-Medrol) injection As needed, Starting on Wed02/03/21 at 0945, Until Wed02/03/21 at 0947, Intra-Op Given 02/03/2021 9:45 AM CADWORX PIPING DESIGNER 80 mg Lumbar Spine documented in this encounter Active and Recently Administered Medications Times are shown in CADWORX PIPING DESIGNER. PRN Medication Order 02/01/2021 02/02/2021 02/03/2021 BUpivacaine (MARCAINE) 0.25 % injection (CANCELED) As needed, Starting on Wed02/03/21 at 0944, Until Wed02/03/21 at 0947, Intra-Op 44 (Given - Provid er: Kylie Navarro MD) [...] MD) documented in this encounter Care Teams Legal Instruments Examiner Relationship Specialty Start Date End Date Mary Fabian MD [address] [place] [address] PCP - General FAMILY PRACTICE 08/25/19 documented as of this encounter
--- OUTSIDE RECORDS SUMMARY | 2024-03-18 22:35 | XMS_ITS | Encounter Summary ---
Author Organization [facility] Address [address] [place] [address]. [place] [address] [place] [address] Care Team Providers Care Materials Recycler Name Role Phone Mary Fabian MD Primary Care Provider + [phone] Reason for Visit * Reason Onset Date Comments Holter Monitor 06/04/2022 * Imaging (Routine) - Closed Specialty Diagnoses / Procedures Referred By Contac t Referred To Contact Diagnoses Syncope Procedures CLINIC - [id number] [facility] - Today Stuart Garrett MD [facility]. [facility] [address] [place] [address] Phone: tel: fax: [facility] [address] [place] [address] [address] [place] [address] Phone: tel: fax: Referral ID Status Reason Start Date Expiration Date Visits Re quested Visits Authorized [id number] Closed 05/29/2022 05/30/2023 1 1 Encounter Details Date Type Department Care Team (Late st Contact Info) Description 06/04/2022 4:45 AM CDT Telephone [facility], [facility] [address] [place] [address] Stuart [facility] [place] [address] [place] [address] Holter Monitor Social History Tobacco Use Types Packs/Day Years [...] of this encounter Progress Notes * Emelyn Trammell, Environmental Services Manager - 06/04/2022 4:42 PM CDTSummary: SHIPPED MAIL 30 DAY MONITOR - DR GARRETT - ADD ANDRAE 30 DAYS SHIPPED OF[place]ON BR[place]GE AND ELECTRODES SENT MO122 / [id number] RETURN [id number] documented in this encounter Plan of Treatment Upcoming Encounters Date Type Department Care Team (Late st Contact Info) Description 02/05/2025 10:00 AM WOOD MACHINIST APPRENTICE Office Visit [facility] THREE [facility], [address] [place] [address] Stuart Garrett MD [facility]. [place] [address] [place], [place] [phone] documented as of this encounter Procedures Procedure Name Priority Date/Time Associated Diagnosis Comments MOBILE CONTINUOUS TELEMETRY Routine 07/08/2022 11:47 AM CDT Syncope documented in this encounter Results * [facility] - [address] MCT - Today (07/08/2022 11:47 AM CDT) Narrative [facility] - 07/08/2022 11:47 AM CDT Three [facility] [place], [place] [address] Phone: ?? Fax: ?? HEAD OF SALES REPORT PATIENT NAME: ??Dottie Bryant : ??1945 DATE OF TESTIN06/05/22 - 07/04/22 TYPE OF MONITOR: Mobile Cardiac Telemetry (MCT) PCP: ??MARY FABIAN MD INTERPRETING FRONT DESK OFFICER: ??Stuart Garrett MD INDICATION: ??Syncope and collapse [...] MD CV VASCULAR ORDERABLES Final Res ult [facility] documented in this encounter Visit Diagnoses Diagnosis Syncope Syncope and collapse documented in this encounter Care Teams Materials Recycler Relationship Specialty Start Date End Date Mary Fabian MD [address] [place] [address] PCP - General FAMILY PRACTICE 08/25/19 documented as of this encounter
--- OUTSIDE RECORDS SUMMARY | 2024-03-18 22:35 | XMS_ITS | Encounter Summary ---
Author Organization [facility] Address [address] [place] [address]. [place] [address] [place] [address] Care Team Providers Care Planer Chain Offbearer Name Role Phone Beau Clement MD Primary Care Provider + [phone] Encounter Details Date Type Department Care Team (Latest Contact Info) Description 02/25/2022 Travel Social History Tobacco Use Types Packs/Day [...] Coronavirus/COVID-19? No / Unsure 02/25/2022 6:57 AM LABORER BEAM HOUSE documented as of this encounter Plan of Treatment Upcoming Encounters Date Type Department Care Team (Late st Contact Info) Description 02/05/2025 10:00 AM LABORER BEAM HOUSE Office Visit [facility] THREE [facility], [place] [address] [place] [address] Stuart Garrett MD [facility]. [facility] [place] [address] [place], [place] [phone] documented as of this encounter Visit Diagnoses Not on filedocumented in this encounter Care Teams Planer Chain Offbearer Relationship Specialty Start Date End Date Beau Clement MD [address] [facility] [place] [place] [address] PCP - General FAMILY PRACTICE 08/25/19 documented as of this encounter
--- OUTSIDE RECORDS SUMMARY | 2024-03-18 22:36 | XMS_ITS | Encounter Summary ---
Author Organization [facility] Address [address] [place] [address]. [place] [address] [place] [address] Care Team Providers Care Sample Color Maker Name Role Phone Beau Clement MD Primary Care Provider + [phone] Encounter Details Date Type Department Care Team (Late st Contact Info) Description 03/29/2020 Patient Self-Triage [facility] DE[facility] [address] [place] [address] [facility] Provider Social History Tobacco Use Types Packs/Day Years Used Date Smoking Tobacco: Never Smokeless Tobacco: Never Alcohol Use Standard Drinks/Week Comments Yes 0 (1 standard drink = 0.6 oz pur e alcohol) 2 glasses of wine /week Comments Unknown Sex and Gender Information Value Date Recorded Sex Assigned at Not on file Legal Sex Female 9:31 AM CDT Gender Identity Female 05/26/2021 6:32 AM CDT Sexual Orientation Straight 05/26/2021 6: 32 AM CDT documented as of this encounter Plan of Treatment Upcoming Encounters Date Type Department Care Team (Late st Contact Info) Description 02/05/2025 10:00 AM UNIVERSITY LIBRARIAN Office Visit [facility] THREE [facility], [address] [address] [place] [address] Stuart Garrett MD Three [facility]. [place] [address] [place] [address] documented as of this encounter Visit Diagnoses Not on filedocumented in this encounter Care Teams Sample Color Maker Relationship Specialty Start Date End Date Beau Clement MD [address] [place], [place] [phone] PCP - General FAMILY PRACTICE 08/25/19 documented as of this encounter
--- OUTSIDE RECORDS SUMMARY | 2024-03-18 22:36 | XMS_ITS | Encounter Summary ---
Author Organization [facility] Address [address] [place] [address]. [place] [address] [place] [address] Care Team Providers Care Quality Control Tech Raw Materials Name Role Phone Mary Fabian MD Primary Care Provider [phone] Reason for Referral * Imaging (Routine) - Closed Specialty Diagnoses / Procedures Referred By Contac t Referred To Contact RADIOLOGY Diagnoses Lumbar foraminal stenosis Chronic right-sided low back pain with right-sided sciatica Hip pain, left Procedures MRI LUMB SPINE WO CON MRI LUMB SPINE WO CON Mary Fabian MD [address] [place] [address] Phone: tel: fax: Referral ID Status Reason Start Date Expiration Date Visits Re quested Visits Authorized [id number] Closed 12/06/2020 03/06/2021 1 1 Reason for Visit * Imaging (Routine) - Closed Specialty Diagnoses / Procedures Referred By Contac t Referred To Contact RADIOLOGY Diagnoses Lumbar foraminal stenosis Chronic right-sided low back pain with right-sided sciatica Hip pain, left Procedures MRI LUMB SPINE WO CON MRI LUMB SPINE WO CON Mary Fabian MD [address] [place] [address] Phone: tel: fax: Referral ID Status Reason Start Date Expiration Date Visits Re quested Visits Authorized [id number] Closed 12/06/2020 03/06/2021 1 1 Encounter Details Date Type Department Care Team (Latest Contact Info) Description 12/06/2020 1:09 PM CDT - 12/06/2020 11:59 PM [address]T Hospital En[facility] [place] [address] Mary Fabian MD [address] [place], [place] [id number] Discharge Disposition: Home or Self Care (Routine [...] have Coronavirus / COVID-19? No / Unsure 12/06/2020 1:05 PM CDT documented as of this encounter Medications at Time of Discharge aspirin EC 81 MG tablet Take 81 mg by mouth every morning. metoprolol succinate ER 25 MG 24 hr tablet Take 25 mg by mouth every morning. 07/19/2019 Multiple Vitamin (MULTIVITAMIN) capsule Take 1 capsule by mouth daily. alendronate 70 MG tablet Take 1 tablet by mouth weekly. 03/28/2019 05/21/2021 atorvastatin 10 MG tablet Take 10 mg by mouth daily. 07/19/2019 02/26/2022 clarithromycin 500 MG tablet 11/01/2020 05/21/2021 folic acid 800 MCG tablet Take 400 mcg by mouth every morning. 05/26/2021 traMADol 50 MG tablet Take 50 mg by mouth. 11/22/2020 05/21/2021 documented as of this encounter Plan of Treatment Upcoming Encounters Date Type Department Care Team (Late st Contact Info) Description 02/05/2025 10:00 AM FUNERAL SERVICE PRACTITIONER/EMBALMER Office Visit [facility] THREE [facility], [place] [address] [place] [address] Stuart Garrett MD Three [facility]. [address] [address] [place], [place] [id number] documented as of this encounter Procedures Procedure Name Priority Date/Time Associated Diagnosis Comments MRI LUMB SPINE WO CON Routine 12/06/2020 2:35 PM CDT Lumbar foraminal stenosis Chronic right-sided low back pain with right-sided sciatica Hip pain, left documented in this encounter Results * MRI LUMB SPINE WO CON (12/06/2020 2:35 PM CDT) Anatomical Region Laterality Modality Spine Magnetic Resonan ce 12/09/2020 11:5 4 AM CDT Impressions 12/09/2020 12:04 PM CDT IMPRESSION: 1. Multilevel degenerative changes in the [...] By: Kevin Xiao MD, 12/09/2020 11:54 AM Narrative 12/09/2020 12:04 PM CDT DATE: 12/06/2020 2:00 PM INDICATION: Low back pain. Left hip pain. EXAMINATION: MRI lumbar spine without contrast. TECHNIQUE: Multiplanar and multisequence MRI images of the lumbar spine were obtained without contrast. COMPARISON: None FINDINGS: There are 5 lumbar type vertebral [...] L5-S1. Likely reactive/degenerative edema seen along the T12- L2 and L5-S1 endplates. Imaged portions of the [...] severe left greater than right foraminal narrowing. Procedure Note Kevin Xiao MD - 12/09/2020 DATE: 12/06/2020 2:00 PM INDICATION: Low back pain. Left hip pain. EXAMINATION: MRI lumbar spine without contrast. TECHNIQUE: Multiplanar and multisequence MRI images of the lumbar spine were obtainedwithout contrast. COMPARISON: None FINDINGS: There are 5 lumbar type vertebral bodies designated as L1 through L5;using this numbering system, the conus medullaris terminates at L2 andappears unremarkable. Mid lumbar levoscoliosis. There is multilevel grade 1 retrolisthesis ofT12 on L1 through L3 on L4. There is grade 1 anterolisthesis of L4 on L5.Otherwise the lumbar vertebral alignment, vertebral body heights, andfacet alignment are maintained. Multilevel degenerative changes are seenin the lower thoracic and lumbar levels with disc degeneration, endplateosteophytes, ligamentum flavum thickening, and facet hypertrophy noted.Multilevel disc desiccation. Greatest loss of disc height at T12-L1,L1-L2, and L5-S1. Likely reactive/degenerative edema seen along the T12- L2and L5-S1 endplates. Imaged portions of the soft tissues reveal no acutefindings. T10-T11 and T11-T12: Small disc bulges, evaluated only on sagittalimages. T12-L1: Retrolisthesis. Disc bulge. Small left central/subarticularprotrusion. Mild ligamentous/facet hypertrophy. Flattening of the leftventral thecal sac. No significant canal or foraminal narrowing. L1-L2: Retrolisthesis. Disc bulge. Posterior and marginal endplateosteophytes. Ligamentous/facet hypertrophy. Flattening of the ventralthecal sac, more so on the left. Minimal canal stenosis. Moderate tosevere left foraminal narrowing. L2-L3: Listhesis. Disc bulge with extension into the foramina. Ligamentumflavum thickening. Facet hypertrophy. Posterior and marginal endplateosteophytes. Mild canal stenosis. Mild left foraminal narrowing. L3-L4: Slight retrolisthesis. Disc bulge with extension into the foramina.Posterior and marginal endplate osteophytes. Ligamentum flavum thickening.Facet hypertrophy. Bilateral lateral recess and mild canal stenosis.Moderate to severe right and mild left foraminal narrowing. L4-L5: Anterolisthesis and disc uncovering. Disc bulge with extension intothe foramina. Marginal endplate osteophytes. Superimposed right foraminalprotrusion. Ligamentum flavum thickening. Prominent facet arthropathy.Bilateral lateral recess and mild to moderate canal stenosis. Mild tomoderate foraminal narrowing. L5-S1: Disc bulge with extension into the foramina. Posterior and marginalendplate osteophytes. Ligamentum flavum thickening. Prominent facetarthropathy. Left greater the right lateral recess and mild to moderatecanal stenosis. Moderate to severe left greater than right foraminalnarrowing. IMPRESSION: 1. Multilevel degenerative changes in the lumbar and partially imagedlower thoracic spine. Greatest canal stenosis at L4-L5, accentuated bydegenerative grade 1 anterolisthesis. Most severe foraminal narrowing atL1 to, L3-L4, and L5-S1. 2. Additional multilevel degenerative changes elsewhere as detailedabove. 3. Likely reactive/degenerative edema along multiple lower thoracic andlumbar endplates. 4. Mid lumbar levoscoliosis and multilevel listheses as detailed above. Referred By: MARY FABIAN Interpreted By: Kevin Xiao MD, 12/09/2020 11:54 AM Mary Fabian MD MRI Final Result documented in this encounter Visit Diagnoses Diagnosis Lumbar foraminal stenosis Spinal stenosis, lumbar region, without neurogenic claudication Chronic right-sided low back pain with right-sided sciatica Hip pain, left Pain in joint, pelvic region and thigh documented in this encounter Care Teams Quality Control Tech Raw Materials Relationship Specialty Start Date End Date Mary Fabian MD [address] [place] [address] PCP - General FAMILY PRACTICE 08/25/19 documented as of this encounter
--- OUTSIDE RECORDS SUMMARY | 2024-03-18 22:36 | XMS_ITS | Encounter Summary ---
Author Organization [facility] Address [address] [place] [address]. [place] [address] [place] [address] Care Team Providers Care Manager Multicultural Name Role Phone Beau Clement MD Primary Care Provider [phone] Encounter Details Date Type Department Care Team (Late st Contact Info) Description 08/31/2019 Orders Only [facility] at [facility] [address] [place], [place] [address] Stuart Garrett MD [facility]. [facility] [address] [place], [place] [address] Social History Tobacco Use Types Packs/Day Years [...] or suspected to have Coronavirus / COVID-19? Unable to assess 09/01/2019 10:28 AM CDT documented as of this encounter Plan of Treatment Upcoming Encounters Date Type Department Care Team (Late st Contact Info) Description 02/05/2025 10:00 AM PEARL TECHNICIAN Office Visit [facility] [address], [place] [address] [place] [address] Stuart Garrett MD [address] [place] [address] [place] [address] documented as of this encounter Procedures Procedure Name Priority Date/Time Associated Diagnosis Comments XTRNL ECG REC<48 HRS RECORDING SCAN A/R R&I Routine 09/14/2019 12:08 PM CDT Syncope, unspecified syncope type PVC (premature ventricular contraction) documented in this encounter Results * CLINIC - HOLTER MONITOR - ECG UP TO 48 HRS,COMPLETE (09/14/2019 12:08 PM CDT) 09/14/2019 12:0 8 PM CDT Narrative ESCRIPTION - 09/15/2019 9:03 AM CDT ENROLLMENT PERIOD: ??09/06/2019 - 09/07/2019 ?? INDICATION: ??Syncope FINDINGS: A total of 24 hours of data was recorded and was usable. ??There were 96, 977 beats recorded during which there was a 3% PVC burden totalling 3000 beats. ??Average heart rate was 67 beats per minute with a range from 47 to 120 beats per minute. Reviewing tracings enclosed show normal sinus rhythm with normal IA, QRS and QT interval. ??There is rare PVCs that are noted. ??No pauses greater than 3 seconds noted. ??There is episodes of ventricular bigeminy seen. ?? There is no sustained ventricular tachycardia noted. IMPRESSION: ?? 24-hour Holter monitor for syncope with 3% burden of premature ventricular ectopic beats totalling 3000 beats. ??Otherwise, no particular symptom/rhythm correlation noted. D: ??09/14/2019 12:08 PM #[id number] T: ??09/14/2019 01:49 PM /TC us Stuart Garrett MD PROCEDURES Final Result ESCRIPTION documented in this encounter Visit Diagnoses Diagnosis Syncope, unspecified syncope type PVC (premature ventricular contraction) Other premature beats documented in this encounter Care Teams Manager Multicultural Relationship Specialty Start Date End Date Beau Clement MD [address] [place] [address] PCP - General FAMILY PRACTICE 08/25/19 documented as of this encounter
--- OUTSIDE RECORDS SUMMARY | 2024-03-18 22:36 | XMS_ITS | Encounter Summary ---
Author Organization [facility] Address [address] [place] [address]. [place] [address] [place] [address] Care Team Providers Care Impregnation Operator Name Role Phone Beau Clement MD Primary Care Provider + [phone] Encounter Details Date Type Department Care Team (Latest Contact Info) Description 10/16/2019 Travel Social History Tobacco Use Types Packs/Day [...] have Coronavirus / COVID-19? No / Unsure 10/16/2019 10:39 AM CDT documented as of this encounter Plan of Treatment Upcoming Encounters Date Type Department Care Team (Late st Contact Info) Description 02/05/2025 10:00 AM POWERHOUSE ENGINEER Office Visit [facility] THREE [facility], [facility] [address] [place] [address] Stuart Garrett MD [facility]. [address] [address] [place] [address] documented as of this encounter Visit Diagnoses Not on filedocumented in this encounter Care Teams Impregnation Operator Relationship Specialty Start Date End Date Beau Clement MD [address] [place], [place] [phone] PCP - General FAMILY PRACTICE 08/25/19 documented as of this encounter
--- OUTSIDE RECORDS SUMMARY | 2024-03-18 22:36 | XMS_ITS | Encounter Summary ---
Author Organization [facility] Address [address] [place] [address]. [place] [address] [place] [address] Care Team Providers Care Hydro Excavation Operator Name Role Phone Beau Clement MD Primary Care Provider [phone] Reason for Visit * Reason Onset Date Comments Results 09/14/2019 Encounter Details Date Type Department Care Team (Late st Contact Info) Description 09/14/2019 Telephone [facility] [address] Emelyn Basurto, RN Results Social History Tobacco [...] Progress Notes * Emelyn Basurto RN - 09/14/2019 2:57 PM CDT 3% pvc burden, nothing else really. Above message from Dr. Garrett (after review of the monitor). I informed the patient of the above information and to keep her EPS for next week. The patient states that she does get dizzy and lightheaded. She has passed out in the past and this is why she is seeing Dr. Garrett. I instructed the patient to stay hydrated and change positions slowly; keep procedurefor next week and call with any questions or concerns. The patient verbalized understanding and hadno further questions. Message to Julisa PUGH. documented in this encounter Plan of Treatment Upcoming Encounters Date Type Department Care Team (Late st Contact Info) Description 02/05/2025 10:00 AM BARREL BANDER Office Visit [facility], [facility] [address] [place], [place] [phone] Stuart Garrett MD [facility]. [facility] [address] [place], [place] [id number] documented as of this encounter Visit Diagnoses Not on filedocumented in this encounter Care Teams Hydro Excavation Operator Relationship Specialty Start Date End Date Beau Clement MD [address] [facility] [place], [place] [id number] PCP - General FAMILY PRACTICE 08/25/19 documented as of this encounter
--- OUTSIDE RECORDS SUMMARY | 2024-03-18 22:36 | XMS_ITS | Encounter Summary ---
Author Organization [facility] Address [address] [place] [address]. [place] [address] [place] [address] Care Team Providers Care It Help Desk Analyst Name Role Phone Beau Clement MD Primary Care Provider + [phone] Encounter Details Date Type Department Care Team (Latest Contact Info) Description 05/18/2020 Travel Social History Tobacco Use Types Packs/Day [...] have Coronavirus / COVID-19? No / Unsure 04/19/2020 10:59 AM DOCKING PILOT documented as of this encounter Plan of Treatment Upcoming Encounters Date Type Department Care Team (Late st Contact Info) Description 02/05/2025 10:00 AM DOCKING PILOT Office Visit [facility], [address] [address] Stuart Garrett MD [facility]. [facility] [address] [place] [address] documented as of this encounter Visit Diagnoses Not on filedocumented in this encounter Care Teams It Help Desk Analyst Relationship Specialty Start Date End Date Beau Clement MD [address] [place], [place] [phone] PCP - General FAMILY PRACTICE 08/25/19 documented as of this encounter
--- OUTSIDE RECORDS SUMMARY | 2024-03-18 22:36 | XMS_ITS | Encounter Summary ---
Author Organization [facility] Address [address] [place] [address]. [place] [address] [place] [address] Care Team Providers Care Window And Door Installer Name Role Phone Beau Clement MD Primary Care Provider + [phone] Encounter Details Date Type Department Care Team (Latest Contact Info) Description 08/28/2019 Travel Social History Tobacco Use Types Packs/Day [...] have Coronavirus / COVID-19? No / Unsure 08/28/2019 8:15 AM CDT documented as of this encounter Plan of Treatment Upcoming Encounters Date Type Department Care Team (Late st Contact Info) Description 02/05/2025 10:00 AM DIRECTOR OF OUTSIDE SALES Office Visit [facility] THREE [facility], [facility] [address] [place] [address] Stuart Garrett MD [facility]. [place] [address] [place] [address] documented as of this encounter Visit Diagnoses Not on filedocumented in this encounter Care Teams Window And Door Installer Relationship Specialty Start Date End Date Beau Clement MD [address] [place], [place] [phone] PCP - General FAMILY PRACTICE 08/25/19 documented as of this encounter
--- OUTSIDE RECORDS SUMMARY | 2024-03-18 22:36 | XMS_ITS | Encounter Summary ---
Author Organization [facility] Address [address] [place] [address]. [place] [address] [place] [address] Care Team Providers Care Chief Relay Tester Name Role Phone Beau Clement MD Primary Care Provider [phone] Encounter Details Date Type Department Care Team (Late st Contact Info) Description 10/16/2019 Orders Only [facility] at [facility] [address] [place], [place] [address] Colette Garrett MD [facility]. [facility] [address] [place], [place] [address] Social History Tobacco Use Types Packs/Day Years [...] st Contact Info) Description 02/05/2025 10:00 AM CAP LINING MACHINE OPERATOR Office Visit [facility] THREE [facility], [place] [address] [place] [address] Colette Garrett MD Three [facility]. [place] [address] [place], [place] [id number] documented as of this encounter Procedures Procedure Name Priority Date/Time Associated Diagnosis Comments ELECTROCARDIOGRAM (NON MIDMARK ACQUIRED) Routine 10/16/2019 11:21 AM CDT PVC (premature ventricular contraction) documented in this encounter Results * ELECTROCARDIOGRAM (10/16/2019 11:21 AM CDT) 10/16/2019 11:2 1 AM CDT Narrative [facility] - 10/25/2019 5:05 PM CDT ?[facility]? [facility] ? Test Date: ?2019-10-16 Pat Name: ? DOTTIE HUANG ?Department: ? Room: ? Gender: ? Female ? Material Control Associate: ?? : ?[id number] ? Requested By: COLETTE GARRETT Order Number: [id number] ?Reading MD: ?? Colette Garrett ? Measurements Intervals ?[place] ? Rate: ? 56 ? P: ?43 MT: ? 167 ?QRS: ?5 QRSD: ? 109 ?T: ?69 QT: ? 463 ? QTc: ?450 ? Interpretive Statements SINUS BRADYCARDIA Compared to ECG dated 08/28/19, PVCs are no longer seen. Procedure Note Colette Garrett MD - 10/25/2019 [facility]? [facility] Test Date: 2019-10-16 Pat Name: DOTTIE HUANG Department: Room: Gender: Female Material Control Associate: : 1945 Requested By: COLETTE GARRETT Order Number: [id number] Reading MD: Colette Garertt Measurements Intervals [place] Rate: 56 P: 43 MT: 167 QRS: 5 QRSD: 109 T: 69 QT: 463 QTc: 450 Interpretive Statements SINUS BRADYCARDIA Compared to ECG dated 08/28/19, PVCs are no longer seen. us Colette Garrett MD PROCEDURES-ORDERABLE NO CHARGE F inal Result [facility] documented in this encounter Visit Diagnoses Diagnosis PVC (premature ventricular contraction)- Primary Other premature beats documented in this encounter Care Teams Chief Relay Tester Relationship Specialty Start Date End Date Beau Clement MD [address] [place] [address] PCP - General FAMILY PRACTICE 08/25/19 documented as of this encounter
--- OUTSIDE RECORDS SUMMARY | 2024-03-18 22:36 | XMS_ITS | Encounter Summary ---
Author Organization [facility] Address [address] [place] [address]. [place] [address] [place] [address] Care Team Providers Care Grocery Cashier Name Role Phone Beau Clement MD Primary Care Provider [phone] Reason for Visit * Reason Onset Date Comments Follow Up Call 10/05/2019 Encounter Details Date Type Department Care Team (Late st Contact Info) Description 10/05/2019 Telephone [facility] at [place] [address] Emelyn Basurto RN Follow Up Call Social History Tobacco Use Types Packs/Day Years [...] have Coronavirus / COVID-19? No / Unsure 09/21/2019 8:49 AM CDT documented as of this encounter Progress Notes * Emelyn Basurto RN - 10/05/2019 12:19 PM CDT I called the patient to follow up since her procedure. The patient states that she is doing well and her groin sites have healed. The patient states that she is very pleased with Dr. Garrett and the procedure. The patient states that she had no concerns at this time. I instructed the patient to call our office with any questions or concerns. The patient verbalized understanding. Message to Julisa LÓPEZ documented in this encounter Plan of Treatment Upcoming Encounters Date Type Department Care Team (Late st Contact Info) Description 02/05/2025 10:00 AM PHARMACOVIGILANCE SAFETY EXPERT Office Visit [facility] THREE [facility], [facility] [address] [place] [address] Stuart Garrett MD [facility]. [facility] [address] [place] [address] documented as of this encounter Visit Diagnoses Not on filedocumented in this encounter Care Teams Grocery Cashier Relationship Specialty Start Date End Date Beau Clement MD [address] [place] [address] PCP - General FAMILY PRACTICE 08/25/19 documented as of this encounter
--- OUTSIDE RECORDS SUMMARY | 2024-03-18 22:36 | XMS_ITS | Encounter Summary ---
Author Organization [facility] Address [address] [place] [address]. [place] [address] [place] [address] Care Team Providers Care Search Specialist Name Role Phone Beau Clement MD Primary Care Provider + [phone] Encounter Details Date Type Department Care Team (Latest Contact Info) Description 12/06/2020 Travel Social History Tobacco Use Types Packs/Day [...] PM CDT documented as of this encounter Plan of Treatment Upcoming Encounters Date Type Department Care Team (Late st Contact Info) Description 02/05/2025 10:00 AM PLASTIC FIXTURE BUILDER Office Visit [facility] THREE [facility], [place] [address] [place] [address] Stuart Garrett MD [facility]. [facility] [address] [place] [address] documented as of this encounter Visit Diagnoses Not on filedocumented in this encounter Care Teams Search Specialist Relationship Specialty Start Date End Date Beau Clement MD [address] [facility] [address] [place], [place] [phone] PCP - General FAMILY PRACTICE 08/25/19 documented as of this encounter
--- OUTSIDE RECORDS SUMMARY | 2024-03-18 22:36 | XMS_ITS | Encounter Summary ---
Author Organization [facility] Address [address] [place] [address]. [place] [address] [place] [address] Care Team Providers Care Drapery Hemmer Automatic Name Role Phone Beau Clement MD Primary Care Provider [phone] Encounter Details Date Type Department Care Team (Late st Contact Info) Description 09/13/2019 Pre-Procedure Call [place] Room Manager [address] [place], [place] [address] Stuart Garrett MD Three [facility]. [place] [address] [place], [place] [phone] Social History Tobacco Use Types Packs/Day Years [...] st Contact Info) Description 02/05/2025 10:00 AM BIOMEDICAL ELECTRONICS TECHNICIAN Office Visit [facility] THREE [facility], [place] [address] [place] [address] Stuart Garrett MD Three [facility]. [place] [address] [place], [place] [phone] documented as of this encounter Visit Diagnoses Not on filedocumented in this encounter Additional Health Concerns Infection Onset Date Last Indicated Resolved Time COVID-19 Rule Out 09/18/2019 09/18/2019 09/20/2019 5:13 AM CDT documented as of this encounter Care Teams Drapery Hemmer Automatic Relationship Specialty Start Date End Date Beau Clement MD [address] [facility] [address] [place], [place] [phone] PCP - General FAMILY PRACTICE 08/25/19 documented as of this encounter
--- OUTSIDE RECORDS SUMMARY | 2024-03-18 22:36 | XMS_ITS | Encounter Summary ---
Author Organization [facility] Address [address] [place] [address]. [place] [address] [place] [address] Care Team Providers Care Genetics Teacher Name Role Phone Beau Clement MD Primary Care Provider + [phone] Encounter Details Date Type Department Care Team (Latest Contact Info) Description 12/02/2020 Travel Social History Tobacco Use Types Packs/Day [...] have Coronavirus / COVID-19? No / Unsure 12/02/2020 7:23 AM CDT documented as of this encounter Plan of Treatment Upcoming Encounters Date Type Department Care Team (Late st Contact Info) Description 02/05/2025 10:00 AM FOOD CRITIC Office Visit [facility], [place] [address] [place] [address] Stuart Garrett MD [facility]. [facility] [address] [place] [address] documented as of this encounter Visit Diagnoses Not on filedocumented in this encounter Care Teams Genetics Teacher Relationship Specialty Start Date End Date Beau Clement MD [address] [facility] [address] [place], [place] [id number] PCP - General FAMILY PRACTICE 08/25/19 documented as of this encounter
--- OUTSIDE RECORDS SUMMARY | 2024-03-18 22:36 | XMS_ITS | Encounter Summary ---
Author Organization [facility] Address [address] [place] [address]. [place] [address] [place] [address] Care Team Providers Care Precision Grinder Name Role Phone Beau Clement MD Primary Care Provider + [phone] Encounter Details Date Type Department Care Team (Latest Contact Info) Description 08/31/2019 Travel Social History Tobacco Use Types Packs/Day [...] have Coronavirus / COVID-19? No / Unsure 08/31/2019 9:45 AM CDT documented as of this encounter Plan of Treatment Upcoming Encounters Date Type Department Care Team (Late st Contact Info) Description 02/05/2025 10:00 AM BUILDINGS AND GROUNDS COORDINATOR Office Visit [facility], [facility] [address] [place] [address] Stuart Garrett MD [facility]. [place] [address] [place] [address] documented as of this encounter Visit Diagnoses Not on filedocumented in this encounter Care Teams Precision Grinder Relationship Specialty Start Date End Date Beau Clement MD [address] [place], [place] [id number] PCP - General FAMILY PRACTICE 08/25/19 documented as of this encounter
--- OUTSIDE RECORDS SUMMARY | 2024-03-18 22:36 | XMS_ITS | Encounter Summary ---
Author Organization [facility] Address [address] [place] [address]. [place] [address] [place] [address] Care Team Providers Care Geotechnical Intern Name Role Phone Mary Fabian MD Primary Care Provider + [phone] Reason for Referral * Imaging (Routine) - Closed Specialty Diagnoses / Procedures Referred By Contac t Referred To Contact RADIOLOGY Diagnoses Syncope, unspecified syncope type PVC (premature ventricular contraction) Procedures XA EP STUDY Stuart Garrett MD [address] [address] Phone: tel: fax: Referral ID Status Reason Start Date Expiration Date Visits Re quested Visits Authorized [id number] Closed 08/28/2019 09/27/2020 1 1 Reason for Visit * Imaging (Routine) - Closed Specialty Diagnoses / Procedures Referred By Contac t Referred To Contact RADIOLOGY Diagnoses Syncope, unspecified syncope type PVC (premature ventricular contraction) Procedures XA EP STUDY Stuart Garrett MD [address] [address] Phone: tel: fax: Referral ID Status Reason Start Date Expiration Date Visits Re quested Visits Authorized [id number] Closed 08/28/2019 09/27/2020 1 1 Encounter Details Date Type Department Care Team (Late st Contact Info) Description 09/21/2019 8:51 AM CDT - 09/21/2019 7:00 PM CDT Hospital Encounter [facility] [place] [address] Stuart Garrett MD [facility]. [place] [address] [place], [place] [id number] Discharge Disposition: Home or Self Care (Routine [...] Sign Reading Time Taken Comments Blood Pressure 139/99 09/21/2019 5:00 PM CDT Pulse 66 09/21/2019 5:00 PM CDT Temperature 36.8 ??C (98.2 ??F) 09/21/2019 9:44 AM CD T Respiratory Rate 13 09/21/2019 5:00 PM CDT Oxygen Saturation 99% 09/21/2019 5:00 PM CDT Inhaled Oxygen Concentration - - Weight 56 kg (123 lb 7.3 oz) 09/21/2019 9:44 AM CDT Height 165.1 cm (5' 5 ) 09/21/2019 9:44 AM CDT Body Mass Index 20.54 09/21/2019 9:44 AM CDT documented in this encounter Discharge Summaries * Stuart Garrett MD - 09/21/2019 12:29 PM CDT 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 Ablated slow pathway. documented in this encounter Discharge Instructions * Discharge Instructions* Beverley Oviedo RN - 09/21/2019 2:55 PM CDT Follow post-Ablation instructions (white folder) * Attachments The following attachments cannot be sent through Care Everywhere. * Moderate Sedation in Adults Discharge Instructions (Cuban) * Cardiac Catheter Ablation Discharge Instructions (Cuban) documented in this encounter Medications at Time [...] 10 mg by mouth daily. 07/19/2019 02/26/2022 folic acid 800 MCG tablet Take 400 mcg by mouth every morning. 05/26/2021 documented as of this encounter H&P Notes * Stuart Garrett MD - 09/21/2019 10:39 AM CDT HISTORY AND PHYSICAL INTERVAL NOTE: I have reviewed Dottie Patinoppard History & Physical which was performed within the past 30 days. After examining Dottie Lopez Manny, no change has occurred in the patient's condition since the H&P was completed. Informed Consent Discussion: Potential benefits, risks, and side effects of the patient's procedure/surgery; the likelihood of the patient achieving his or her goals; and any potential problems that might occur during recuperation were discussed with the patient/family/personal passenger representative. Reasonable alternatives to the patient's proposed procedure/surgery including benefits, risks, and side effects related to the alternatives and the risks related to not receiving the proposed care were also discussed with the patient/family/personal passenger representative. Questions were answered and the patient/family/personal passenger representative verbalized understanding and desires to proceed. Source Note - Stuart Garrett MD - 08/28/2019 8:45 AM CDT Reason for Visit: Consult (syncopal episodes) History of Present Illness: 74-year-old female with recurrent syncopal episodes with minimal to no prodrome. She has hypertension without any other cardiac history. She denies chest pain, shortness of breath, or palpitations. She denies PND, orthopnea, LE edema, cough, hemoptysis. Recommendations and Plan: 1. Syncope without prodrome, no relation to exertion. I would start with echo for evaluation of systolic function, and plan for EPS +/- ILR implant for syncope. 2. PVCs on ECG. Would like 24h holter monitor to assess PVC burden. 3. Counselled on trying to stay hydrated, isometrics prior to position changes. Data reviewed: ECG today in office with PVCs in trigeminy. Medications: No current outpatient medications on file. Allergies Allergen Reactions ??? Celecoxib Other (see comment) Reaction: Past Medical History: Diagnosis Date ??? Arthritis ??? Essential hypertension ??? Syncopal episodes Past Surgical History: Procedure Laterality Date ??? CATARACT EXTRACTION ??? HC LIGATION/STRIP VARICOSE VEINS ??? SKIN [...] Mother ??? Father ??? Sister Alive, age 71y Review of Systems Constitutional: Negative for recent unintentional weight gain, recent unintentional weight loss andnew or significant fatigue. HENT: Negative for new or significant hearing loss. Eyes: Negative for blurred vision and double vision. Respiratory: Negative for cough, new or significant shortness of breath and snoring. Cardiovascular: See HPI Gastrointestinal: Negative for blood in stool and melena. Genitourinary: Negative for dysuria. Musculoskeletal: Negative for myalgias and new or worsening joint stiffness/pain. Skin: Negative for rash. Neurological: Negative for tingling/numbness and focal weakness. Endo/Heme/Allergies: Negative for new or significant bruising/bleeding and polydipsia. Psychiatric/Behavioral: Negative for depression and new or significant memory loss. Filed Vitals: 08/28/19 0856 BP: 126/82 Pulse: 84 Weight: 58.5 kg (129 lb) Height: 5' 5 (1.651 m) Body mass index is 21.47 kg/m??. Physical Exam Rate/Rhythm: regular rhythm and normal rate . Heart Sounds: normal heart sounds, normal S1 and normal S2 no gallop, no S3 sound, no S4 sound and no murmur. . PMI: PMI not displaced. Pulses: normal pulses Right Carotid pulses 2+, Left Carotid pulses 2+, Right Radial pulses 2+, LeftRadial pulses 2+, Right Femoral pulses 2+, Left Femoral pulses 2+, Right Popliteal pulses 2+, Left Popliteal pulses 2+, Right DP pulses 2+, Left DP pulses 2+, Right PT pulses 2+Left PT Pulses 2+, negative for edema Constitutional: healthy appearance not distressed. . Neck: normal range of motion, neck supple and thyroid normal no JVD. . Pulmonary/Chest Wall: effort normal and breath sounds normal . HEENT: teeth/gums normal and oropharynx clear and moist. . Abdomen: abdomen soft and bowel sounds normal No tenderness. no mass. no hepatomegaly. No splenomegaly. Abdominal aorta not palpably enlarged. No abdominal aortic bruit. . Eyes: pupils equal, round, and reactive to light and conjunctivae normal. Neurological: alert, oriented x 3, appropriate for situation, intact cranial nerves and normal motor skillsnormal gait, . Skin: dry and warm no cyanosis and no clubbing. Musculoskeletal: no kyphosis normal ROM Cardiovascular Comments: Diagnoses/Impression: 1. Syncope, unspecified syncope type ELECTROCARDIOGRAM (NON MIDMARK ACQUIRED) Referring Provider: Mary Fabian PCP: MARY FABIAN MD documented in this encounter OR Notes * Brief Op Note - Stuart Garrett MD - 09/21/2019 12:17 PM CDT Brief procedure note: Hx: 74-year-old female with a history of SVT. female presents today for EPS and possible ablation. The patient was consented for this procedure as an outpatient. Consent obtained separately for anesthesia service. Patient was prepped and draped in usual fashion Ultrasound guidance was used for venous access. 8/7/7F RFV, 2 quadripolar catheters were advanced to the high right atrium and RV/his septal position. A deflectable decapolar catheter was advanced out the coronary sinus. Catheters were placed under fluoroscopic guidance. Baseline measurements within normal limits. 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 Ablation: The slow pathway was mapped for electrograms 1:5 atrial:ventricular and ablation directedhere with 50W/55C/30s lesions. Junctional ectopy was noted during ablation without loss of conduction. Post ablation: Isoproterenol was transfused up to 2 mcg/min to achieve resting heart rate >100/bpm. No further inducible SVT noted. EBL<5cc. No complications. 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 Recommendation: 4 hours of bedrest, continue home medications. Discharge to home if groins are stable, f/u in 4-6 weeks. documented in this encounter Plan of Treatment Upcoming Encounters Date Type Department Care Team (Late st Contact Info) Description 02/05/2025 10:00 AM CONVENTION SERVICES MANAGER Office Visit [facility], [facility] [address] [place] [address] Stuart Garrett MD [facility]. [facility] [address] [place] [address] documented as of this encounter Procedures Procedure Name Priority Date/Time Associated Diagnosis Comments XA EP STUDY Routine 09/21/2019 12:49 PM CDT Syncope, unspecified syncope type PVC (premature ventricular contraction) PROTHROMBIN TIME, VENOUS STAT 09/21/2019 9:15 AM CDT PVC (premature ventricular contraction) BASIC METABOLIC PANEL STAT 09/21/2019 9:15 AM CDT PVC (premature ventricular contraction) CBC W/DIFF AUTOMATED STAT 09/21/2019 9:15 AM CDT PVC (premature ventricular contraction) documented in this encounter Results * XA EP STUDY (09/21/2019 12:49 PM CDT) Anatomical Region Laterality Modality NA Amusement Or Recreation Card Checker Narrative 09/22/2019 4:32 PM CDT [facility] CARDIAC CATHETERIZATION/EP LAB [phone] x [phone] SVT Ablation Patient? s Name: ?? Dottie Bryant Date of : ?? 1945 Medical Record: ??#[id number] Account: ??#[id number] Physician: ??Stuart Garrett MD Date: ?? 09/21/2019 Procedure: ?? #[id number] History: ??74-year-old female with dizziness and syncope. Procedure: The patient was brought to the EP lab after consent obtained for EPS +/- ablation. I performed moderate sedation for 30 minutes. ??I supervised and directed Dmitriy Bolivar RN who assisted in monitoring the patient? s level of consciousness and physiologic status throughout the procedure. Presenting Rhythm: Normal sinus rhythm Access: Ultrasound guidance was used for venous access. 8/7/7F RFV was obtained. 3 quadripolar catheters were advanced to the high right atrial position, and HIS/RV position. A deflectable decapolar catheter was advanced out the coronary sinus. Catheters were placed under fluoroscopic guidance. Baseline Measurements: RR 755 ms PP 755 ms QRS 84 ms QT 370 ms DE 148 ms AH 82 ms HV 39 ms VA conduction - is midline and decremental. VAWCL 290 ms AVNERP 400/280 ms Atrial extrastimuli showed the presence of dual AV cris physiology. AVNRT: SVT was easily induced The SVT was approximately 322 ms. This was correlated with the patient as clinical tachycardia symptoms. ??VA time <70ms. 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 Ablation: A Lamp 90 sheath was advanced over a wire from the 8F RFV access, through which a 4mm Navistar catheter was advanced to the area of the triangle of Ayala. ??Using Carto 3D mapping, a His cloud was tagged using the mapping catheter. The coronary sinus ostium was tagged. Then the area of the slow pathway was carefully mapped to find a ratio of atrial:ventricular electrograms 1:5. Ablation here at 50W/50 deg C limit/30 seconds was performed with slow junctional ectopy. Multiple lesions were given. No loss of retrograde atrial activation noted as well as no AV block noted. Post ablation: Isoproterenol was transfused up to 2 mcg/min to achieve resting heart rate ~100bpm. During isoproterenol washout, no further nonsustained SVT was initiated. ?? With atrial extra stimuli single echoes were seen but no sustained AVNRT. 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 Recommendations: 4 hours of bedrest, continue home medications. ?? Resume anticoagulation 4 hours after hemostasis if no groin complications. Discharge to home if groin stable. Follow-up in 6 weeks. [place] pacing [address] Drug infusion 50001 comp EPS + atrial ablation 78038 3d mapping ICD 10 [id number] Measurement and monitoring, cardiac, percutaneous, electrical activity [id number] Destruction, percutaneous, right atrium [id number] Destruction, percutaneous, conduction mechanism (slow pathway) I47.1 Supraventricular tachycardia [paroxysmal] Stuart Garrett MD PS/vs Interpreted: ?09/21/19 Transcribed: ??09/22/19 us Stuart Garrett MD [facility] [employer] [facility] Final Result * PROTIME/INR, VENOUS (09/21/2019 9:15 AM CDT) PROTIME 11.9 9.6 - 12.2 SEC 09/21/2019 9:39 AM CDT [facility] INR 1.1 09/21/2019 9:39 AM CDT [facility] Comment: Recommended INR Therapeutic Goals: ??2.0-3.0 Routine Therapy ??2.5-3.5 Mechanical Prosthetic Valves (High Risk) ??3.0-4.0 Acute UT (to prevent Systemic Embolism) The INR is used only for patients on stable oral anticoagulant therapy. It makes no significant contribution to the diagnosis or treatment of patients whose Protime is prolonged for other reasons. 09/21/2019 9:15 AM CDT Stuart Garrett MD LABORATORY Final Result [facility] [address] [place] [address], * (ABNORMAL) BASIC METABOLIC PANEL (09/21/2019 9:15 AM CDT) GLUCOSE 100(H) 70 - 99 MG/DL 09/21/2019 9:47 AM CDT [facility] BUN 14 7 - 18 MG/DL 09/21/2019 9:47 AM CDT [facility] CREATININE S/P/B 1.02 0.55 - 1.02 MG/DL 09/21/2019 9:47 AM CDT [facility] SODIUM S/P/B 140 136 - 145 MMOL/L 09/21/2019 9:47 AM CDT [facility] POTASSIUM S/P/B 3.8 3.5 - 5.1 MMOL/L 09/21/2019 9:47 AM CDT [facility] CHLORIDE S/P/B 107 100 - 108 MMOL/L 09/21/2019 9:47 AM CDT [facility] CO2 28.8 21 - 32 MMOL/L 09/21/2019 9:47 AM CDT [facility] CALCIUM S/P/B 9.6 8.5 - 10.1 MG/DL 09/21/2019 9:47 AM CDT [facility] ANION GAP 4.2(L) 5 - 15 MMOL/L 09/21/2019 9:47 AM CDT [facility] BUN CREATININE RATIO 13.7 6 - 26 09/21/2019 9:47 AM CDT [facility] EGFR NON-AFR. AMER. 55(L) >90 ML/MIN/1.7 3 M2 09/21/2019 9:47 AM CDT [facility] EGFR AFR. AMER. 63(L) >90 ML/MIN/1.7 3 M2 09/21/2019 9:47 AM CDT [facility] Comment: NOTE: eGFR is not calculated for patients <18 years of age. This is an estimated GFR (CKD EPI) and should not be used for calculating drug doses. 09/21/2019 9:15 AM CDT Stuart Garrett MD LABORATORY Final Result [facility] [address] [place] [address], * (ABNORMAL) CBC W/DIFF AUTOMATED (09/21/2019 9:15 AM CDT) WBC 9.3 4.5 - 11.0 x10'3/uL 09/21/2019 9:43 AM CDT [facility] RBC 4.55 4.20 - 5.40 x10'6/uL 09/21/2019 9:43 AM CDT [facility] HGB 14.4 12.0 - 16.0 G/DL 09/21/2019 9:43 AM CDT [facility] HCT 45.6 38.0 - 48.0 % 09/21/2019 9:43 AM CDT [facility] MCV 100.2(H) 80.0 - 94.0 FL 09/21/2019 9:43 AM CDT [facility] MCH 31.6(H) 27.0 - 31.0 PG 09/21/2019 9:43 AM CDT [facility] MCHC 31.6(L) 32.0 - 36.0 G/DL 09/21/2019 9:43 AM CDT [facility] RDW 13.2 11.5 - 14.5 % 09/21/2019 9:43 AM CDT [facility] PLT 360 130 - 400 x10'3/uL 09/21/2019 9:43 AM CDT [facility] MPV 9.2(L) 9.3 - 12.2 FL 09/21/2019 9:43 AM CDT [facility] DIFFERENTIAL TYPE AUTOMATED DIFFERENTIAL 09/21/2019 9:43 AM CDT [facility] NEUTROPHILS % 58.7 % 09/21/2019 9:43 AM CDT [facility] LYMPHOCYTES % 25.4 % 09/21/2019 9:43 AM CDT [facility] MONOCYTES % 9.2 % 09/21/2019 9:43 AM CDT [facility] EOSINOPHILS 5.6 % 09/21/2019 9:43 AM CDT [facility] BASOPHILS 0.8 % 09/21/2019 9:43 AM CDT [facility] IMMATURE GRANS % 0.3 % 09/21/19 20 9:43 AM CDT [facility] ABS. NEUTROPHILS TOTAL 5.47 1.80 - 7.70 x10'3/uL 09/21/2019 9:43 AM CDT [facility] ABS. LYMPHOCYTES 2.37 1.00 - 4.80 x10'3/uL 09/21/2019 9:43 AM CDT [facility] ABS. MONOCYTES 0.86 0.24 - 0.86 x10'3/uL 09/21/2019 9:43 AM CDT [facility] ABS. EOSINOPHILS 0.52(H) 0.04 - 0.36 x10'3/uL 09/21/2019 9:43 AM CDT [facility] ABS. BASOPHILS 0.07 0.01 - 0.08 x10'3/uL 09/21/2019 9:43 AM CDT [facility] ABS. IMMATURE GRANULOCYTES 0.03 0.00 - 0.49 x10'3/uL 09/21/2019 9:43 AM CDT [facility] 09/21/2019 9:15 AM CDT us Stuart Garrett MD LABORATORY Final Result [facility] [address] [place] [address], [place] [phone] documented in this encounter Visit Diagnoses Diagnosis Syncope, unspecified syncope type PVC (premature ventricular contraction) Other premature beats documented in this encounter Administered Medications Inactive Administered Medications - up to 3 most recent administrations Medication Order MAR Action Action Date Dose Rate Site fentaNYL (SUBLIMAZE) 100 MCG/2ML injection 1 dose, Starting on Charmaine 09/21/19 at 1151, Until Charmaine 09/21/19 at 1230, Created by cabinet override, Intra-Op Given 09/21/2019 12:30 PM CDT 75 mcg heparin (porcine) 1000 UNIT/ML injection 1 dose, Starting on Charmaine 09/21/19 at 1157, Until Charmaine 09/21/19 at 1124, Created by cabinet override, Intra-Op Given 09/21/2019 11:24 AM CDT 2,000 Units Heparin (Porcine) 1000-0.9 UT/500ML-% infusion 1 dose, Starting on Charmaine 09/21/19 at 1117, Until Charmaine 09/21/19 at 1100, Created by cabinet override, Intra-Op New Bag 09/21/2019 11:00 AM CDT Heparin (Porcine) 1000-0.9 UT/500ML-% infusion 1 dose, Starting on Charmaine 09/21/19 at 1131, Until Charmaine 09/21/19 at 1130, Created by cabinet override, Intra-Op New Bag 09/21/2019 11:30 AM CDT isoproterenol (ISUPREL) 0.2 MG/ML injection 1 dose, Starting on Charmaine 09/21/19 at 1212, Until Charmaine 09/21/19 at 1304, Created by cabinet override, Intra-Op Given 09/21/2019 1:04 PM CDT lidocaine (XYLOCAINE) 1 % injection SOLN 1 dose, Starting on Charmaine 09/21/19 at 1117, Until Charmaine 09/21/19 at 1100, Created by cabinet override, Intra-Op Given 09/21/2019 11:00 AM CDT midazolam (VERSED) 2 MG/2ML injection 1 dose, Starting on Charmaine 09/21/19 at 1151, Until Charmaine 09/21/19 at 1230, Created by cabinet override, Intra-Op Given 09/21/2019 12:30 PM CDT 1 mg sodium chloride 0.9 % infusion 1 dose, Starting on Charmaine 09/21/19 at 1129, Until Charmaine 09/21/19 at 1101, Created by cabinet override, Intra-Op New Bag 09/21/2019 11:01 AM CDT documented in this encounter Active and Recently Administered Medications Times are shown in CDT. No Frequency Medication Order 09/19/2019 09/20/2019 09/21/2019 fentaNYL (SUBLIMAZE) 100 MCG/2ML injection (COMPLETED) 1 dose, Starting on Charmaine 09/21/19 at 1151, Until Charmaine 09/21/19 at 1230, Created by cabinet override, Intra-Op 1230 (Given - Provid er: Dmitriy Bolivar RN - Comment: see pro log for admin times) heparin (porcine) 1000 UNIT/ML injection (COMPLETED) 1 dose, Starting on Charmaine 09/21/19 at 1157, Until Charmaine 09/21/19 at 1124, Created by cabinet override, Intra-Op 1124 (Given - Provid er: Dmitriy Bolivar RN) Heparin (Porcine) 1000-0.9 UT/500ML-% infusion (COMPLETED) 1 dose, Starting on Charmaine 09/21/19 at 1117, Until Charmaine 09/21/19 at 1100, Created by cabinet override, Intra-Op 1100 (New Bag - Prov ider: Dmitriy Bolivar, RN - Comment: table/line flush) Heparin (Porcine) 1000-0.9 UT/500ML-% infusion (COMPLETED) 1 dose, Starting on Charmaine 7 at 1131, Until Charmaine 7 at 1130, Created by cabinet override, Intra-Op 1130 (New Bag - Prov ider: Dmitriy Bolivar, RN - Comment: line/table flush) isoproterenol (ISUPREL) 0.2 MG/ML injection (COMPLETED) 1 dose, Starting on Charmaine 09/21/19 at 1212, Until Charmaine 720 at 1304, Created by cabinet override, Intra-Op 1304 (Given - Provid er: Dmitriy Bolivar RN) lidocaine (XYLOCAINE) 1 % injection SOLN (COMPLETED) 1 dose, Starting on Charmaine 09/21/19 at 1117, Until Charmaine 7 at 1100, Created by cabinet override, Intra-Op 1100 (Given - Provid er: Dmitriy Bolivar RN) midazolam (VERSED) 2 MG/2ML injection (COMPLETED) 1 dose, Starting on Charmaine 09/21/19 at 1151, Until Charmaine 720 at 1230, Created by cabinet override, Intra-Op 1230 (Given - Provid er: Dmitriy Bolivar RN - Comment: see prolog for admin times) sodium chloride 0.9 % infusion (COMPLETED) 1 dose, Starting on Charmaine 09/21/19 at 1129, Until Charmaine 7 at 1101, Created by cabinet override, Intra-Op 1101 (New Bag - Prov ider: Dmitriy Bolivar RN - Comment: kvo) documented in this encounter Care Teams Geotechnical Intern Relationship Specialty Start Date End Date Mary Fabian MD [address] [place] [address] PCP - General FAMILY PRACTICE 08/25/19 documented as of this encounter
--- OUTSIDE RECORDS SUMMARY | 2024-03-18 22:36 | XMS_ITS | Encounter Summary ---
Author Organization [facility] Address [address] [place] [address]. [place] [address] [place] [address] Care Team Providers Care Sterile Processing Tech Name Role Phone Beau Clement MD Primary Care Provider [phone] Reason for Referral * Imaging (Routine) - Closed Specialty Diagnoses / Procedures Referred By Contac t Referred To Contact RADIOLOGY Diagnoses Syncope, unspecified syncope type PVC (premature ventricular contraction) Procedures USE ECHOCARDIOGRAM Stuart Garrett MD [address] [address] Phone: tel: fax: [place] [address] Phone: tel: Referral ID Status Reason Start Date Expiration Date Visits Re quested Visits Authorized [id number] Closed 08/28/2019 09/27/2020 1 1 Reason for Visit * Imaging (Routine) - Closed Specialty Diagnoses / Procedures Referred By Contac t Referred To Contact RADIOLOGY Diagnoses Syncope, unspecified syncope type PVC (premature ventricular contraction) Procedures USE ECHOCARDIOGRAM Stuart Garrett MD [address] [address] Phone: tel: fax: [facility] [place] [address] Phone: tel: Referral ID Status Reason Start Date Expiration Date Visits Re quested Visits Authorized [id number] Closed 08/28/2019 09/27/2020 1 1 Encounter Details Date Type Department Care Team (Late st Contact Info) Description 08/31/2019 9:48 AM CDT - 08/31/2019 11:59 PM CDT Hospital Encounter [facility] Non Invasive Cardiology [address] [place], [place] [id number] Stuart Garrett MD [facility]. [address] [place], [place] [id number] Discharge Disposition: Home or Self Care (Routine [...] morning. 05/26/2021 documented as of this encounter Plan of Treatment Upcoming Encounters Date Type Department Care Team (Late st Contact Info) Description 02/05/2025 10:00 AM CLIENT SERVICE CONSULTANT Office Visit [facility], [address] [place] [address] Stuart Garrett MD [facility]. [address] [place] [address] documented as of this encounter Procedures Procedure Name Priority Date/Time Associated Diagnosis Comments USE ECHOCARDIOGRAM Routine 08/31/2019 10 :46 AM CDT Syncope, unspecified syncope type PVC (premature ventricular contraction) documented in this encounter Results * USE ECHOCARDIOGRAM (08/31/2019 10:46 AM CDT) Anatomical Region Laterality Modality Cardiac Echocardiogram 08/31/2019 10:1 0 AM CDT Narrative 09/01/2019 7:49 PM CDT ?Echocardiography Report Pat.Name: ??DOTTIE HUANG ?Pat.ID: ?[id number] ? St.Date: ?? 08/31/2019 ? Refer.MD: ??[id number] SHARON ALVARENGA ?EWDPROV ?EWDPROV Exam Time: 10:10:00 AM ? Study Type:ECHO WITH CARDIAC DOPPLER COMP Height: ?65in ?Weight: ?128.73lb ? BSA: ? 1.64 m2 ?Age: ??1945,74Y ? Sex: ? FEMALE ?BP: ?159/59 ? HR: ?58 bpm ?Sonogrphr: Josseline Zaragoza RDCS, RCS Pat. Stat.:Outpatient ? Reason for Study: Hypertension, PVC's, Syncope/pre-syncope Procedures: ??2D, M-mode, Doppler, Color Flow, The study quality is technically good. Race: ?W ? ++++++++++++++++++++++++++++++++++++ SUMMARY: ++++++++++++++++++++++++++++++++++++ The left ventricular size is normal. Estimated left ventricular ejection fraction is 50-55%. There is no left ventricular hypertrophy. The right ventricular size is normal. Right ventricular systolic function is normal. No significant valvular abnormalities. Right ventricular systolic pressure is <35 mmHg. No evidence of pericardial effusion. Normal aortic root. No valvular abnormalities. ++++++++++++++++++++++++++++++++++++ FINDINGS: ++++++++++++++++++++++++++++++++++++ LV: ? The left ventricular size is normal. Estimated left ?ventricular ??ejection fraction is 50-55%. There is no left ?ventricular ??hypertrophy. Left ventricular diastolic ?function ??is abnormal. WM: ? Wall motion appears normal in all segments. LVOT: ? The left ventricular outflow tract size is normal. RV: ? The right ventricular size is normal. Right ventricular ?systolic ??function is normal. IVS: ?No evidence of ventricular septal defect. LA: ? The left atrial size is normal. RA: ? Right atrial size is normal. IAS: ?Atrial septum appears intact. JIMMIE: ? No evidence of pericardial effusion. AO: ? Normal aortic root. PA: ? Estimated right atrial pressure of 3 mmHg. SVn: ?Systemic veins are normal. AV: ? The aortic valve is trileaflet. No evidence of aortic valve ?stenosis. ??No evidence of aortic valve regurgitation. MV: ? Moderate mitral regurgitation. No evidence of mitral ?stenosis. PV: ? Trace pulmonic regurgitation. No evidence of pulmonic valve ?stenosis. TV: ? Moderate tricuspid regurgitation. Right ventricular systolic ?pressure ??is <35 mmHg. No evidence of tricuspid valve ?stenosis. ++++++++++++++++++++++++++++++++++++ MEASUREMENTS: ++++++++++++++++++++++++++++++++++++ ?DOPPLER TV Regurg Flow TV pkPG ? 23 mmHg ?TV pkVel ? 240 cm/s (30- 70) TV Forward Flow TV pkE ?60.3 cm/s ? Lat E' ?? Lat e ? 10.3 cm/s ? Med E' ?? Med e ? 7.01 cm/s ? Lat MA ?? LV Pk Sys Tissu ??14.2 cm/s ? LV Peak Castillo Ti ??15.8 cm/s Med MA ?? LV Pk Sys Tissu ??9.94 cm/s ? LV Peak Castillo Ti ??11.8 cm/s MV PISA MV AliasVel ? 35 cm/s ? MV Regurgitant Flow Length ? 0.233 cm ? MV Regurgitant Flow Proximal Isovelocity Surface Area Flow Radius ?0.392 cm ? Pulmonic Valve ?? AC ? 141 ms ?Peak Velocity ?? 75.8 cm/s PG mean ? 1.34 mmHg ?VTI ?0.166 m ?? Mean Velocity ? 55 cm/s ?PV ET ?303 ms ?? PG pk ?2.3 mmHg ?PV AT/ET ? 0.466 ? Tricuspid Valve ?? HR ?63 bpm ? TV Free Wall Sa ?11 cm/s TV A pk Catherine ? 42 cm/s ?2D Left Ventricle ?? LV CI ? 1.76 l/min/m2 ?LV vol d MOD A2 ??3.33 cm ?? LVIDd ? 4.82 cm ?? (4.3-5.1) LV vol d MOD A4 ??2.88 cm ?? LVIDs ? 3.72 cm ?? (2-4) ?LV vol d MOD A4 ??4.04 cm ?? LV%fs ? 22.8 % ?(25-46) ??LV vol d MOD A4 ??4.02 cm ?? LV CI ? 1.26 l/min/m2 ?LV vol d MOD A4 ??3.95 cm ?? LV CI ? 1.51 l/min/m2 ?LV vol d MOD A4 ?? 3.8 cm ?? LV CO ? 2.08 l/min ? LV vol d MOD A4 ??3.68 cm ?? LV CO ? 2.49 l/min ? LV vol d MOD A4 ??3.52 cm ?? LV CO BP ? 2.2 l/min ? LV vol d MOD A4 ??3.16 cm ?? LV SV ? 35.8 ml ?LV vol d MOD A4 ??2.77 cm ?? LV SV ? 40.1 ml ?LV vol d MOD A4 ??2.28 cm ?? LV SV BP ?36.7 ml ?LV vol d MOD A4 ??1.74 cm ?? IVS %th ? 32.7 % ? LV vol d MOD A4 0.765 cm ?? IVSs ?1.08 cm ?LV vol d MOD A4 ??4.34 cm ?? Left Ventricle ?? 7.44 cm ? LV vol d MOD A4 ??4.51 cm ?? Left Ventricle ?? 7.65 cm ? LV vol d MOD A4 ??4.49 cm ?? LVPW%th ? 22.5 % ? LV vol d MOD A4 ??4.32 cm ?? LVPWs ? 0.96 cm ?LV vol d MOD A4 ??4.17 cm ?? LV Semi-major A ?? 6.3 cm ? LV vol d MOD A4 ??4.14 cm ?? Left Ventricle ?? 7.23 cm ? LV vol d MOD A4 ??4.08 cm ?? Left Ventricle ?? 6.41 cm ? LV vol d MOD A4 ??4.06 cm ?? Left Ventricle ?? 7.23 cm ? LV vol s MOD A2 ??1.99 cm ?? LV Trunc Semi-m ??1.35 cm ? LV vol s MOD A2 ? 3 cm ?? LV Area castillo ?25 cm2 ? LV vol s MOD A2 ??1.93 cm ?? LV Area castillo ?27.5 cm2 ? LV vol s MOD A2 ??1.83 cm ?? LVA% ?34.4 % ? LV vol s MOD A2 ??1.83 cm ?? LVA% ?33.6 % ? LV vol s MOD A2 ??1.97 cm ?? LV Area sys ? 16.4 cm2 ? LV vol s MOD A2 ??1.97 cm ?? LV Area sys ? 18.3 cm2 ? LV vol s MOD A2 ??2.07 cm ?? LV EF ? 53.6 % ? LV vol s MOD A2 ??1.83 cm ?? LV EF ? 49.6 % ? LV vol s MOD A2 ??1.43 cm ?? LV EF BP ?49.5 % ? LV vol s MOD A2 ??1.19 cm ?? LV EDV ?66.8 ml ?LV vol s MOD A2 0.871 cm ?? LV EDV ?80.8 ml ?LV vol s MOD A2 ?? 3.3 cm ?? LVEDV BP ?45.2 ml/m2 ? LV vol s MOD A2 ??3.24 cm ?? LV ESV ?31 ml ?LV vol s MOD A2 ??3.14 cm ?? LV ESV ?40.7 ml ?LV vol s MOD A2 ??2.95 cm ?? LVESV BP ?22.8 ml/m2 ? LV vol s MOD A2 ??2.86 cm ?? LV Mass ? 0.77 g/cm ?LV vol s MOD A2 ?? 2.8 cm ?? Minor [place] (Desire ??3.58 cm ? LV vol s MOD A2 ??2.44 cm ?? Composite heart ?58 bpm ?LV vol s MOD A2 ??2.03 cm ?? Composite heart ?62 bpm ?LV vol s MOD A4 ??2.69 cm ?? Composite heart ?58 bpm ?LV vol s MOD A4 ??3.59 cm ?? Composite heart ?60 bpm ?LV vol s MOD A4 ??2.78 cm ?? Composite heart ?58 bpm ?LV vol s MOD A4 ??2.76 cm ?? LV vol d MOD A2 ?? 2.9 cm ? LV vol s MOD A4 ?? 2.7 cm ?? LV vol d MOD A2 ??3.98 cm ? LV vol s MOD A4 ??2.63 cm ?? LV vol d MOD A2 ??3.33 cm ? LV vol s MOD A4 ??2.56 cm ?? LV vol d MOD A2 ??3.21 cm ? LV vol s MOD A4 ?? 2.5 cm ?? LV vol d MOD A2 ??3.04 cm ? LV vol s MOD A4 ??2.24 cm ?? LV vol d MOD A2 ??2.95 cm ? LV vol s MOD A4 ??1.87 cm ?? LV vol d MOD A2 ??2.85 cm ? LV vol s MOD A4 ??1.43 cm ?? LV vol d MOD A2 ??2.77 cm ? LV vol s MOD A4 0.815 cm ?? LV vol d MOD A2 ??2.39 cm ? LV vol s MOD A4 ?? 4.2 cm ?? LV vol d MOD A2 ??2.06 cm ? LV vol s MOD A4 ??3.93 cm ?? LV vol d MOD A2 ?? 1.8 cm ? LV vol s MOD A4 ??3.56 cm ?? LV vol d MOD A2 ??1.18 cm ? LV vol s MOD A4 ??3.22 cm ?? LV vol d MOD A2 ??4.38 cm ? LV vol s MOD A4 ??2.98 cm ?? LV vol d MOD A2 ??4.49 cm ? LV vol s MOD A4 ??2.81 cm ?? LV vol d MOD A2 ??4.41 cm ? LV vol s MOD A4 ??2.74 cm ?? LV vol d MOD A2 ??4.38 cm ? LV vol s MOD A4 ??2.76 cm ?? LV vol d MOD A2 ??4.27 cm ? Left Ventricula ?? 165 mmHg LV vol d MOD A2 ??3.87 cm ? Composite heart ?59 bpm LV vol d MOD A2 ??3.54 cm ? LVPW ?? LVPWd ?0.784 cm ? Left Atrium ?? LA VOLBP ?51.4 ml ?Index ?31.4 ml/m2 ? Major [place] (Sys ??5.41 cm ?? Yun Disk Nu ? 9 ?Major [place] (Sys ?? 4.2 cm ?? Ratios ?? IVS Ventricular Septum ?? IVSd ? 0.815 cm ? Aorta ?? AO Ds ? 3.28 cm ? Lat MA ?? MV Pk Doug to LV ??7.39 ? LV Area-Length Biplane LVEDV ? 76.4 ml ?LVESV ? 35.2 ml ?? LV Area-Length Single Plane LVEDV ? 71.5 ml ?LVESV ? 31.7 ml ?? LVEDV ? 83.9 ml ?LVESV ? 44.2 ml ?? LVOT ?? LVOTArea ? 3.9 cm2 ? Mean Velocity ?? 61.8 cm/s Cardiovascular ?? 2.23 cm ? Peak Velocity ?? 78.2 cm/s Mitral Annulus ?? PG mean ?0.511 mmHg ?VTI ?0.171 m ?? Med MA ?? MV Pk Doug to LV ??10.8 ? Mitral Valve ?? Orf Diam ?2.74 cm ?SV ? 176 ml ?? Orf Diam ?3.62 cm ?MV A dur ? 141 ms ?? Decel Callahan ?497 cm/s2 ? MV A pk Doug ? 82.9 cm/s HR ?60 bpm ? MV E/A ? 0.915 ? Decel Time ? 152 ms ?MV E pk Doug ? 75.9 cm/s P1/2t ? 44 ms ?Mitral Valve A ?? 1.09 ? Regurg Frac ? 57.4 % ? MV Area by Pressure Half-Time Orf Area ? 5 cm2 ? MV Regurgitant Flow PG mean ?100 mmHg ?VTI ? 2.36 m ?? PG pk ?172 mmHg ?Volume ? 101 ml ?? Peak Velocity ?655 cm/s ? MV Regurgitant Flow Proximal Isovelocity Surface Area Orf Area ?5.15 ml2 ? Volume Flow ? 12.2 ml ?? Pk Flow ? 33.7 ml/s ?Flow Area ?0.963 cm2 Right Atrium ?? Major [place] (Sys ??4.53 cm ? Yun Disk Nu ? 9 ? HR ?61 bpm ? RA Area-Length Single Plane Volume (Systole ??18.2 ml/m2 ? RA Single Plane RA sys Area ? 12.6 cm2 ? Volume (Systole ??28.3 ml ?? Right Ventricle ?? RVIDd ? 3.21 cm ?HR ?77 bpm Major [place] (Desire ??7.12 cm ? Minor [place] (Desire ?? 1.8 cm ?? RVOT ?? PG mean ?0.981 mmHg ?Peak Velocity ?? 67.8 cm/s Mean Velocity ?? 44.2 cm/s ?VTI ?0.159 m ?? PG pk ? 1.84 mmHg ? TA ?? Cardiovascular ?? 3.59 cm ?MMODE Ratios ?? LA/Ao ? 1.23 ?(0.87-1.1) Aorta ?? Ao Rt ?2.9 cm ?? (zsc 0.9) Aortic Valve ?? AV sep ? 2.1 cm ?? (1.5-2.6) PG pk ? 5.82 mmHg AC ? 116 ms ?Peak Velocity ?121 cm/s HR ?60 bpm ? VTI ?0.269 m ?? PG mean ? 2.85 mmHg ?AV ET ?340 ms ?? Mean Velocity ?? 79.1 cm/s ?AV AC/ET ? 0.341 ? Left Atrium ?? LAIDs ? 3.57 cm ?End Diastolic A 0.813 ? AV Continuity Equation by Mean Velocity Orf Area ?3.05 cm2 ? AV Continuity Equation by Peak Velocity Orf Area ?1.54 square centimeters/square meter Area ?2.53 cm2 AV Continuity Equation by Velocity Time Integral Orf Area ? 1.7 square centimeters/square meter Area ?2.79 cm2 Left Ventricle ?? Heart Rate-Colten ?? 436 ms ? Composite HR fo ?60 bpm Composite heart ?60 bpm ? Pulmonary Veins ?? Pul Vn A Dur ? 137 ms ?Pul Vn sys Vmax ??58.7 cm/s Pul Vein Atrial ??33.2 cm/s ? Pul Vn sys/castillo ??1.01 ? Pul Vn Castillo Pk ?? 58.3 cm/s ? Pulm Vein A dur -4.14 ms ?? Tricuspid Valve ?? Tricuspid annul ?? 2.6 cm ? Vena Cava ?? IVC Diam ?1.02 cm ? Signed 09/01/2019 07:49 PM Chito Trevino M.D. Procedure Note Chito Trevino MD - 09/01/2019 Echocardiography Report Pat.Name: DOTTIE HUANG Pat.ID: [id number] .Date: 08/31/2019 : [id number] SHARON ALVARENGA EWDPROV EWDPROV Exam Time: 10:10:00 AM Study Type:ECHO WITH CARDIAC DOPPLER COMP Height: 65in Weight: 128.73lb BSA: 1.64 m2 Age: 5 1945,74Y Sex: FEMALE BP: 159/59 HR: 58 bpm Sonogrphr: Josseline Zaragoza [facility] Pat. Stat.:Outpatient Reason for Study: Hypertension, PVC's, Syncope/pre-syncope Procedures: 2D, M-mode, Doppler, Color Flow, The study quality is technically good. Race: W ++++++++++++++++++++++++++++++++++++ SUMMARY: ++++++++++++++++++++++++++++++++++++ The left ventricular size is normal. Estimated left ventricular ejection fraction is 50-55%. There is no left ventricular hypertrophy. The right ventricular size is normal. Right ventricular systolic function is normal. No significant valvular abnormalities. Right ventricular systolic pressure is <35 mmHg. No evidence of pericardial effusion. Normal aortic root. No valvular abnormalities. ++++++++++++++++++++++++++++++++++++ FINDINGS: ++++++++++++++++++++++++++++++++++++ LV: The left ventricular size is normal. Estimated left ventricular ejection fraction is 50-55%. There is no left ventricular hypertrophy. Left ventricular diastolic function is abnormal. WM: Wall motion appears normal in all segments. LVOT: The left ventricular outflow tract size is normal. RV: The right ventricular size is normal. Right ventricular systolic function is normal. IVS: No evidence of ventricular septal defect. LA: The left atrial size is normal. RA: Right atrial size is normal. IAS: Atrial septum appears intact. JIMMIE: No evidence of pericardial effusion. AO: Normal aortic root. PA: Estimated right atrial pressure of 3 mmHg. SVn: Systemic veins are normal. AV: The aortic valve is trileaflet. No evidence of aortic valve stenosis. No evidence of aortic valve regurgitation. MV: Moderate mitral regurgitation. No evidence of mitral stenosis. PV: Trace pulmonic regurgitation. No evidence of pulmonic valve stenosis. TV: Moderate tricuspid regurgitation. Right ventricular systolic pressure is <35 mmHg. No evidence of tricuspid valve stenosis. ++++++++++++++++++++++++++++++++++++ MEASUREMENTS: ++++++++++++++++++++++++++++++++++++ DOPPLER TV Regurg Flow TV pkPG 23 mmHg TV pkVel 240 cm/s (30-70) TV Forward Flow TV pkE 60.3 cm/s Lat E' Lat e 10.3 cm/s Med E' Med e 7.01 cm/s Lat MA LV Pk Sys Tissu 14.2 cm/s LV Peak Castillo Ti 15.8 cm/s Med MA LV Pk Sys Tissu 9.94 cm/s LV Peak Castillo Ti 11.8 cm/s MV PISA MV AliasVel 35 cm/s MV Regurgitant Flow Length 0.233 cm MV Regurgitant Flow Proximal Isovelocity Surface Area Flow Radius 0.392 cm Pulmonic Valve AC 141 ms Peak Velocity 75.8 cm/s PG mean 1.34 mmHg VTI 0.166 m Mean Velocity 55 cm/s PV ET 303 ms PG pk 2.3 mmHg PV AT/ET 0.466 Tricuspid Valve HR 63 bpm TV Free Wall Sa 11 cm/s TV A pk Catherine 42 cm/s 2D Left Ventricle LV CI 1.76 l/min/m2 LV vol d MOD A2 3.33 cm LVIDd 4.82 cm (4.3-5.1) LV vol d MOD A4 2.88 cm LVIDs 3.72 cm (2-4) LV vol d MOD A4 4.04 cm LV%fs 22.8 % (25-46) LV vol d MOD A4 4.02 cm LV CI 1.26 l/min/m2 LV vol d MOD A4 3.95 cm LV CI 1.51 l/min/m2 LV vol d MOD A4 3.8 cm LV CO 2.08 l/min LV vol d MOD A4 3.68 cm LV CO 2.49 l/min LV vol d MOD A4 3.52 cm LV CO BP 2.2 l/min LV vol d MOD A4 3.16 cm LV SV 35.8 ml LV vol d MOD A4 2.77 cm LV SV 40.1 ml LV vol d MOD A4 2.28 cm LV SV BP 36.7 ml LV vol d MOD A4 1.74 cm IVS %th 32.7 % LV vol d MOD A4 0.765 cm IVSs 1.08 cm LV vol d MOD A4 4.34 cm Left Ventricle 7.44 cm LV vol d MOD A4 4.51 cm Left Ventricle 7.65 cm LV vol d MOD A4 4.49 cm LVPW%th 22.5 % LV vol d MOD A4 4.32 cm LVPWs 0.96 cm LV vol d MOD A4 4.17 cm LV Semi-major A 6.3 cm LV vol d MOD A4 4.14 cm Left Ventricle 7.23 cm LV vol d MOD A4 4.08 cm Left Ventricle 6.41 cm LV vol d MOD A4 4.06 cm Left Ventricle 7.23 cm LV vol s MOD A2 1.99 cm LV Trunc Semi-m 1.35 cm LV vol s MOD A2 3 cm LV Area castillo 25 cm2 LV vol s MOD A2 1.93 cm LV Area castillo 27.5 cm2 LV vol s MOD A2 1.83 cm LVA% 34.4 % LV vol s MOD A2 1.83 cm LVA% 33.6 % LV vol s MOD A2 1.97 cm LV Area sys 16.4 cm2 LV vol s MOD A2 1.97 cm LV Area sys 18.3 cm2 LV vol s MOD A2 2.07 cm LV EF 53.6 % LV vol s MOD A2 1.83 cm LV EF 49.6 % LV vol s MOD A2 1.43 cm LV EF BP 49.5 % LV vol s MOD A2 1.19 cm LV EDV 66.8 ml LV vol s MOD A2 0.871 cm LV EDV 80.8 ml LV vol s MOD A2 3.3 cm LVEDV BP 45.2 ml/m2 LV vol s MOD A2 3.24 cm LV ESV 31 ml LV vol s MOD A2 3.14 cm LV ESV 40.7 ml LV vol s MOD A2 2.95 cm LVESV BP 22.8 ml/m2 LV vol s MOD A2 2.86 cm LV Mass 0.77 g/cm LV vol s MOD A2 2.8 cm Minor [place] (Desire 3.58 cm LV vol s MOD A2 2.44 cm Composite heart 58 bpm LV vol s MOD A2 2.03 cm Composite heart 62 bpm LV vol s MOD A4 2.69 cm Composite heart 58 bpm LV vol s MOD A4 3.59 cm Composite heart 60 bpm LV vol s MOD A4 2.78 cm Composite heart 58 bpm LV vol s MOD A4 2.76 cm LV vol d MOD A2 2.9 cm LV vol s MOD A4 2.7 cm LV vol d MOD A2 3.98 cm LV vol s MOD A4 2.63 cm LV vol d MOD A2 3.33 cm LV vol s MOD A4 2.56 cm LV vol d MOD A2 3.21 cm LV vol s MOD A4 2.5 cm LV vol d MOD A2 3.04 cm LV vol s MOD A4 2.24 cm LV vol d MOD A2 2.95 cm LV vol s MOD A4 1.87 cm LV vol d MOD A2 2.85 cm LV vol s MOD A4 1.43 cm LV vol d MOD A2 2.77 cm LV vol s MOD A4 0.815 cm LV vol d MOD A2 2.39 cm LV vol s MOD A4 4.2 cm LV vol d MOD A2 2.06 cm LV vol s MOD A4 3.93 cm LV vol d MOD A2 1.8 cm LV vol s MOD A4 3.56 cm LV vol d MOD A2 1.18 cm LV vol s MOD A4 3.22 cm LV vol d MOD A2 4.38 cm LV vol s MOD A4 2.98 cm LV vol d MOD A2 4.49 cm LV vol s MOD A4 2.81 cm LV vol d MOD A2 4.41 cm LV vol s MOD A4 2.74 cm LV vol d MOD A2 4.38 cm LV vol s MOD A4 2.76 cm LV vol d MOD A2 4.27 cm Left Ventricula 165 mmHg LV vol d MOD A2 3.87 cm Composite heart 59 bpm LV vol d MOD A2 3.54 cm LVPW LVPWd 0.784 cm Left Atrium LA VOLBP 51.4 ml Index 31.4 ml/m2 [place] (Sys 5.41 cm Yun Disk Nu 9 [place] (Sys 4.2 cm Ratios IVS Ventricular Septum IVSd 0.815 cm Aorta AO Ds 3.28 cm Lat MA MV Pk Doug to LV 7.39 LV Area-Length Biplane LVEDV 76.4 ml LVESV 35.2 ml LV Area-Length Single Plane LVEDV 71.5 ml LVESV 31.7 ml LVEDV 83.9 ml LVESV 44.2 ml LVOT LVOTArea 3.9 cm2 Mean Velocity 61.8 cm/s Cardiovascular 2.23 cm Peak Velocity 78.2 cm/s Mitral Annulus PG mean 0.511 mmHg VTI 0.171 m Med MA MV Pk Doug to LV 10.8 Mitral Valve Orf Diam 2.74 cm SV 176 ml Orf Diam 3.62 cm MV A dur 141 ms Decel Callahan 497 cm/s2 MV A pk Doug 82.9 cm/s HR 60 bpm MV E/A 0.915 Decel Time 152 ms MV E pk Doug 75.9 cm/s P1/2t 44 ms Mitral Valve A 1.09 Regurg Frac 57.4 % MV Area by Pressure Half-Time Orf Area 5 cm2 MV Regurgitant Flow PG mean 100 mmHg VTI 2.36 m PG pk 172 mmHg Volume 101 ml Peak Velocity 655 cm/s MV Regurgitant Flow Proximal Isovelocity Surface Area Orf Area 5.15 ml2 Volume Flow 12.2 ml Pk Flow 33.7 ml/s Flow Area 0.963 cm2 Right Atrium Major [place] (Sys 4.53 cm Yun Disk Nu 9 HR 61 bpm RA Area-Length Single Plane Volume (Systole 18.2 ml/m2 RA Single Plane RA sys Area 12.6 cm2 Volume (Systole 28.3 ml Right Ventricle RVIDd 3.21 cm HR 77 bpm Major [place] (Desire 7.12 cm Minor [place] (Desire 1.8 cm RVOT PG mean 0.981 mmHg Peak Velocity 67.8 cm/s Mean Velocity 44.2 cm/s VTI 0.159 m PG pk 1.84 mmHg TA Cardiovascular 3.59 cm MMODE Ratios LA/Ao 1.23 (0.87-1.1) Aorta Ao Rt 2.9 cm (zsc 0.9) Aortic Valve AV sep 2.1 cm (1.5-2.6) PG pk 5.82 mmHg AC 116 ms Peak Velocity 121 cm/s HR 60 bpm VTI 0.269 m PG mean 2.85 mmHg AV ET 340 ms Mean Velocity 79.1 cm/s AV AC/ET 0.341 Left Atrium LAIDs 3.57 cm End Diastolic A 0.813 AV Continuity Equation by Mean Velocity Orf Area 3.05 cm2 AV Continuity Equation by Peak Velocity Orf Area 1.54 square centimeters/square meter Area 2.53 cm2 AV Continuity Equation by Velocity Time Integral Orf Area 1.7 square centimeters/square meter Area 2.79 cm2 Left Ventricle Heart Rate-Colten 436 ms Composite HR fo 60 bpm Composite heart 60 bpm Pulmonary Veins Pul Vn A Dur 137 ms Pul Vn sys Vmax 58.7 cm/s Pul Vein Atrial 33.2 cm/s Pul Vn sys/castillo 1.01 Pul Vn Castillo Pk 58.3 cm/s Pulm Vein A dur -4.14 ms Tricuspid Valve Tricuspid annul 2.6 cm Vena Cava IVC Diam 1.02 cm Signed 09/01/2019 07:49 PM Chito Trevino M.D. Stuart Garrett MD ECHO Final Result documented in this encounter Visit Diagnoses Diagnosis Syncope, unspecified syncope type PVC (premature ventricular contraction) Other premature beats documented in this encounter Care Teams Sterile Processing Tech Relationship Specialty Start Date End Date Beau Clement MD [address] [place] [address] PCP - General FAMILY PRACTICE 08/25/19 documented as of this encounter
--- OUTSIDE RECORDS SUMMARY | 2024-03-18 22:36 | XMS_ITS | Encounter Summary ---
Author Organization [facility] Address [address] [place] [address]. [place] [address] [place] [address] Care Team Providers Care Production Line Solderer Name Role Phone Mary Fabian MD Primary Care Provider + [phone] Reason for Referral * Imaging (Routine) - Closed Specialty Diagnoses / Procedures Referred By Contac t Referred To Contact RADIOLOGY Diagnoses Syncope, unspecified syncope type PVC (premature ventricular contraction) Procedures XA EP STUDY Colette Herrera MD [address] [address] Phone: tel: fax: Referral ID Status Reason Start Date Expiration Date Visits Re quested Visits Authorized [id number] Closed 08/28/2019 09/27/2020 1 1 * Diagnostic Lab (Routine) - Closed Specialty Diagnoses / Procedures Referred By Contac t Referred To Contact CARDIOLOGY Diagnoses Syncope, unspecified syncope type PVC (premature ventricular contraction) Procedures CLINIC - HOLTER MONITOR - ECG UP TO 48 HRS,COMPLETE Colette Herrera MD [address] [address] Phone: tel: fax: [facility] [place] [place] [address] Phone: tel: fax: Referral ID Status Reason Start Date Expiration Date Visits Re quested Visits Authorized [id number] Closed 08/28/2019 10/06/2019 1 1 * Imaging (Routine) - Closed Specialty Diagnoses / Procedures Referred By Dede cat Referred To Contact RADIOLOGY Diagnoses Syncope, unspecified syncope type PVC (premature ventricular contraction) Procedures USE ECHOCARDIOGRAM Colette Herrera MD [facility]. [facility] [address] [place] [address] Phone: tel: fax: [facility] [place] [address] Phone: tel: Referral ID Status Reason Start Date Expiration Date Visits Re quested Visits Authorized [id number] Closed 08/28/2019 09/27/2020 1 1 Reason for Visit * Reason Comments Consult syncopal episodes * Consultation/Treatment (Routine) - Closed Specialty Diagnoses / Procedures Referred By Dede cat Referred To Contact CARDIOLOGY / Cardiology Diagnoses Syncope and collapse Procedures OFFICE VISIT Mary Fabian MD [address] [place] [address] Phone: tel: fax: Colette Herrera MD [facility]. [facility] [address] [place] [address] Phone: tel: fax: Referral ID Status Reason Start Date Expiration Date Visits Re quested Visits Authorized [id number] Closed 08/28/2019 08/28/2020 6 6 Encounter Details Date Type Department Care Team (Late st Contact Info) Description 08/28/2019 8:45 AM CDT Office Visit [facility] [place] [facility], [address] [place] [address] Colette Herrera MD [facility]. [address] [place] [address] Consult (syncopal episodes) Social History Tobacco Use Types Packs/Day Years [...] Sign Reading Time Taken Comments Blood Pressure 126/82 08/28/2019 8:56 AM CDT Pulse 84 08/28/2019 8:56 AM CDT Temperature - - Respiratory Rate - - Oxygen Saturation - - Inhaled Oxygen Concentration - - Weight 58.5 kg (129 lb) 08/28/2019 8:56 AM CDT Height 165.1 cm (5' 5 ) 08/28/2019 8:56 AM CDT Body Mass Index 21.47 08/28/2019 8:56 AM CDT documented in this encounter Patient Instructions * Patient Instructions* Raeann Conner - 08/28/2019 8:45 AM CDT Images from the original note were not included. Patient Education Patient Education Syncope (Fainting) The Basics Written by the doctors and editors at [facility] What is syncope???--?? Syncope is the medical term for fainting. After fainting, a person quickly comes to and is OK again. Syncope is very common. About 1 out of every 3 people has it at some point in life. In many cases, syncope is nothing to worry about. What causes syncope???--??Syncope happens when the brain temporarily doesn't get enough blood. One of the most common reasons this happens is called vasovagal syncope. If you have vasovagal syncope, your body has a reaction in which your heart beats too slowly or your blood vessels expand (or both). This can happen for lots of different kinds of reasons. People can have vasovagal syncope if they: ?? Have stress from fear or pain (for example, because they are injured or have blood taken for tests) ?? Stand for too long or are over-tired or overheated ?? Have an unusual reaction to urinating, coughing, or other body functions Sometimes vasovagal syncope happens with no clear cause. People can also have syncope that is not vasovagal. This can happen due to the following problems: ?? The heart beats too quickly or too slowly because of problems with the heart's electrical systemor because of side effects from some medicines. ?? Something blocks the flow of blood in the heart. This can happen in people who have conditions called aortic stenosis (a valve disease) or hypertrophic cardiomyopathy (a heart muscle disease). ?? Your blood pressure drops when you stand or sit up. That can happen if you: ? Do not drink enough water ? Take certain medicines that cause your blood pressure to drop ? Drink alcohol ? Lose a lot of blood (for example, if you get hurt) ? Have a medical condition that affects your blood pressure Is syncope dangerous???--??In many cases it is not dangerous. But it can be dangerous if you fall and hurt yourself when you faint. It can also be dangerous if you faint while driving. To be safe, check with your doctor or nurse before you start driving again after you faint. Should I see a doctor or nurse???--??Yes. Anyone who faints should see a doctor or nurse. Most cases of syncope are not serious. But people can get hurt when they faint. Plus, in some cases syncope is caused by a serious medical condition that should be treated. Knowing what caused you to faint canhelp you prevent it from happening again. Tell your doctor or nurse what happened before, during, and after you fainted. If someone was with you when you fainted, that person might be able to tell you what happened. The following informationis helpful: ?? What were you doing before you passed out? ?? How were you feeling before you passed out? ?? How long were you passed out? ?? How well did you recover? ?? Any past history of fainting? ?? A list of the medicines you take ?? Any medical conditions you might have Your doctor or nurse will ask you a few questions and do an exam. During the exam, the doctor or nurse might: ?? Check your blood pressure and heart rate when you are lying down, sitting, or standing ?? Listen to your heart to check whether something might be wrong with your heart valves or heart muscle Will I need tests???--??Yes. Your doctor will do a test called an electrocardiogram (also called an ECG ). For this test, the doctor will put sticky pads on your chest, belly, arms, and legs. Long, thin wires connect the pads to a machine (figure 1). The device records the electrical activity in your heart. This can show if the pattern of your heartbeats is abnormal. You might get other tests, too. These could include 1 or more of the following: ?? Echocardiogram (also called an echo ) - This test uses sound waves to create an image of the heart (figure 2). It allows the doctors to measure the borjas and chambers of the heart, see how the heart is pumping and check how the heart valves are working. Heart valves are flaps of tissue that open and close like swinging doors. They help keep blood moving in one direction. ?? Carotid sinus massage - For this test, a doctor presses on a blood vessel in your neck while watching your electrocardiogram. This can show if your blood vessel is too sensitive to pressure. ?? Home heart monitor - For home monitoring, you might wear or carry a device around at home. You will keep doing normal activities. One type of monitor records all your heart beats for 1 or 2 days (figure 3). With others, you push a button to record heart beats when you feel symptoms (figure 4). ?? Tilt table test - For this test, you lie flat on a table. Your doctor then monitors your heartbeats and blood pressure while your body is tilted with your head up (figure 5). Can syncope be prevented???--??You might be able to reduce your chances of fainting again if you: ?? Learn what causes your syncope: ? If an activity or condition causes your syncope, you can try to avoid it. ? If a medicine causes your syncope, your doctor can help you find an alternative. ? If a heart condition is causing your syncope, your doctor can suggest a treatment. ?? Lay down with your feet up when you feel like you might faint. How is syncope treated???--??That depends on what is causing your syncope. In many cases, the main treatment is to avoid the situations that cause syncope. In less common cases, other treatment might be needed. For example, you might need a pacemaker if your heart beats too slowly and this causes syncope. A pacemaker is a device that is put under your skin. Thin wires attach them to your heart. They help the heart beat at a normal speed or in a regular pattern. What if my child faints???--??If your child faints, you should take him or her to see a doctor. Most cases of syncope in children are not serious. Often they are caused by vasovagal syncope. Syncope can also happen in children if: ?? They hold their breath for too long ?? Their blood pressure drops when they stand or sit up ?? They swallow medicines, drugs, or alcohol ?? They have carbon monoxide poisoning In less common cases, syncope in children can be caused by a life-threatening condition, such as a serious heart condition, overheating, or a severe allergic reaction (called anaphylaxis). All topics are updated as new evidence becomes available and our peer review process is complete. This topic retrieved from [employer] on: Jun 05, 2019. Topic 63710 Version 10.0 Release: 28.2.2 - C28.105 ?2019??[employer] and/or its affiliates.??All rights reserved. figure 1: Person having an ECG This drawing shows a man having an ECG (also called an electrocardiogram or EKG). He has patches, called electrodes, stuck onto his chest, arms, and legs. Wires run from the electrodes to the ECG machine. An ECG measures the electrical activity in the heart. Graphic 27463 Version 2.0 figure 2: Transthoracic echocardiogram (echo) This picture shows a person getting an echocardiogram (or echo ). To do an echo, a doctor or nurseputs some gel on a person's chest. He or she presses a thick wand (called a transducer ) against the chest and moves it around. An echo uses sound waves to create images of the heart that appear on a computer screen. A test called an electrocardiogram (ECG) is done during an echo. For an ECG, patches (called electrodes ) are stuck to a person's chest. Wires run from the patches to a machine that records the electrical activity of the heart. Graphic 51966 Version 4.0 figure 3: Holter monitor People with possible heart problems are sometimes asked to wear a device called a Holter monitor for 1 or 2 days. The device measures the electrical activity in the heart. It helps doctors pinpoint heart rhythm problems. You will have electrodes stuck to your chest that are connected to wires leading to the monitor. These electrodes tell the monitor how often your heart beats and if it has a normal rhythm. While you have a Holter monitor on, you should do your normal activities but keep the electrodes, wires, and device dry. Some people have an abnormal heart rhythm only during certain activities or certain times of the day. Graphic 86342 Version 8.0 figure 4: Cardiac event recorder An event recorder is a portable device patients can use to measure their heart rhythm for a short time. The patient must activate the recorder and hold it to the chest when they feel symptoms. It is useful for patients that have intermittent symptoms that may not be captured with other forms of testing. Graphic 00012 Version 4.0 figure 5: Tilt table test During a tilt table test, a doctor or nurse tilts your body at different angles. At the same time, he or she monitors your blood pressure and your heart's electrical activity. Your body's response tothe changes in position can help your doctor or nurse figure out what, if anything, is wrong with your heart. Graphic 40611 Version 5.0 Consumer Information Use and Disclaimer This information is not specific medical advice and does not replace information you receive from your health care provider. This is only a brief summary of general information. It does NOT include all information about conditions, illnesses, injuries, tests, procedures, treatments, therapies, discharge instructions or life-style choices that may apply to you. You must talk with your health care provider for complete information about your health and treatment options. This information should not be used to decide whether or not to accept your health care provider's advice, instructions or recommendations. Only your health care provider has the knowledge and training to provide advice that is right for you.The use of [employer] content is governed by the [employer] Terms of Use. ??2020 [employer]. All rights reserved. Copyright ?2020??[employer]. and/or its affiliates.??All rights reserved. 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 [address] [place] [address] documented as of this encounter Procedures Procedure Name Priority Date/Time Associated Diagnosis Comments ELECTROCARDIOGRAM (NON MIDMARK ACQUIRED) Routine 08/28/2019 8:54 AM CDT Syncope, unspecified syncope type documented in this encounter Results * XA EP STUDY (09/21/2019 12:49 PM CDT) Anatomical Region Laterality Modality NA Jig Bore Operator Narrative 09/22/2019 4:32 PM CDT [facility] CARDIAC CATHETERIZATION/EP LAB [phone] x 18630 SVT Ablation Patient? s Name: ?? Dottie Huang Date of : ?? 1945 Medical Record: ??#[id number] Account: ??#[id number] Physician: ??Colette Herrera MD Date: ?? 09/21/2019 Procedure: ?? #[id number] [...] ms QRS 84 ms QT 370 ms AK 148 ms AH 82 ms HV 39 [...] Follow-up in 6 weeks. [place] pacing [address] Drug infusion 52417 comp EPS + atrial ablation 06362 3d mapping ICD 10 [id number] Measurement and monitoring, cardiac, percutaneous, electrical activity 88419FA Destruction, percutaneous, right atrium 99177AC Destruction, percutaneous, conduction mechanism (slow pathway) I47.1 Supraventricular tachycardia [paroxysmal] Colette Herrera MD PS/vs Interpreted: ?09/21/19 Transcribed: ??09/22/19 us Colette Herrera MD WAGON DRIVER SALESPERSON Final Result * CLINIC - HOLTER MONITOR - ECG [...] enclosed show normal sinus rhythm with normal AK, QRS and QT interval. ??There is rare PVCs that are noted. ??No pauses greater than 3 seconds noted. ??There is episodes of ventricular bigeminy seen. ?? There is no sustained ventricular tachycardia noted. IMPRESSION: ?? 24-hour Holter monitor for syncope with 3% burden of premature ventricular ectopic beats totalling 3000 beats. ??Otherwise, no particular symptom/rhythm correlation noted. D: ??09/14/2019 12:08 PM #[id number] T: ??09/14/2019 01:49 PM /TC us Colette Herrera MD PROCEDURES Final Result ESCRIPTION * USE ECHOCARDIOGRAM (08/31/2019 10:46 AM CDT) Anatomical Region Laterality Modality Cardiac Echocardiogram 08/31/2019 10:1 0 AM CDT Narrative 09/01/2019 7:49 PM CDT ?Echocardiography Report Pat.Name: ??REINADOTTIE ?Pat.ID: ?[id number] ? St.Date: ?? 08/31/2019 ? Refer.MD: ??[id number] SHARON ALVARENGA ?EWDPROV ?EWDPROV Exam Time: 10:10:00 [...] MOD A2 ?? 2.8 cm ?? Minor Rayne (Desire ??3.58 cm ? LV vol s [...] ?51.4 ml ?Index ?31.4 ml/m2 ? Major Rayne (Sys ??5.41 cm ?? Yun Disk Nu ? 9 ?Major Rayne (Sys ?? 4.2 cm ?? Ratios ?? [...] A dur ? 141 ms ?? Decel [place] ?497 cm/s2 ? MV A pk Doug [...] Area ?0.963 cm2 Right Atrium ?? Major Rayne (Sys ??4.53 cm ? Yun Disk Nu ? 9 ? HR ?61 bpm ? RA Area-Length Single Plane Volume (Systole ??18.2 ml/m2 ? RA Single Plane RA sys Area ? 12.6 cm2 ? Volume (Systole ??28.3 ml ?? Right Ventricle ?? RVIDd ? 3.21 cm ?HR ?77 bpm Major Rayne (Desire ??7.12 cm ? Minor Rayne (Desire ?? 1.8 cm ?? RVOT ?? [...] 09/01/2019 Echocardiography Report Pat.Name: DOTTIE HUANG Pat.ID: [id number] .Date: 08/31/2019 Refer.MD: [id number] SHARON ALVARENGA EWDPROV EWDPROV Exam Time: 10:10:00 AM Study Type:ECHO WITH CARDIAC DOPPLER COMP Height: 65in Weight: 128.73lb BSA: 1.64 m2 Age: 5 1945,74Y Sex: FEMALE BP: 159/59 HR: 58 bpm Sonogrphr: Josseline Zaragoza [facility] Pat. Stat.:Outpatient Reason for Study: [...] vol s MOD A2 2.8 cm Minor Rayne (Desire 3.58 cm LV vol s MOD [...] VOLBP 51.4 ml Index 31.4 ml/m2 Major Rayne (Sys 5.41 cm Yun Disk Nu 9 Major Rayne (Sys 4.2 cm Ratios IVS Ventricular Septum [...] cm MV A dur 141 ms Decel [place] 497 cm/s2 MV A pk Doug 82.9 [...] Flow Area 0.963 cm2 Right Atrium Major Rayne (Sys 4.53 cm Yun Disk Nu 9 HR 61 bpm RA Area-Length Single Plane Volume (Systole 18.2 ml/m2 RA Single Plane RA sys Area 12.6 cm2 Volume (Systole 28.3 ml Right Ventricle RVIDd 3.21 cm HR 77 bpm Major Rayne (Desire 7.12 cm Minor Rayne (Desire 1.8 cm RVOT PG mean 0.981 [...] Signed 09/01/2019 07:49 PM Chito Trevino M.D. us Colette Herrera MD ECHO Final Result * ELECTROCARDIOGRAM (08/28/2019 8:54 AM CDT) 08/28/2019 8:54 AM CDT Narrative [facility] - 08/28/2019 3:39 PM CDT ?[facility], [facility]? [place] ? Test Date: ?2019-08-28 Pat Name: ? DOTTIE HUANG ?Department: ? Room: ? Gender: ? Female ? 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 : ?1945 ? Requested By: PABAN SHARON Order Number: [id number] ?Reading MD: ?? Paban Sharon ? Measurements Intervals ?Rayne ? Rate: ? 62 ? P: ?8 AK: ? 142 ?QRS: ?-4 QRSD: ? 101 ?T: ?63 QT: ? 383 ? QTc: ?392 ? Interpretive Statements SINUS RHYTHM WITH FREQUENT ECTOPIC PREMATURE COMPLEXES SEPTAL MYOCARDIAL INFARCTION, PROBABLY OLD No prior ECG available for comparison Procedure Note Colette Herrera MD - 08/28/2019 [facility]? 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: : 1945 Requested By: COLETTE HERRERA Order Number: [id number] Reading MD: Colette Herrera Measurements Intervals Rayne Rate: 62 P: 8 AK: 142 QRS: -4 QRSD: 101 T: 63 QT: 383 QTc: 392 Interpretive Statements SINUS RHYTHM WITH FREQUENT ECTOPIC PREMATURE COMPLEXES SEPTAL MYOCARDIAL INFARCTION, PROBABLY OLD No prior ECG available for comparison us Colette Herrera MD PROCEDURES-ORDERABLE NO CHARGE F inal Result Performing Organization Address City/State/[facility] [[email or web address]] Co de Phone Number [facility] [address] [facility] [address] [place] [address], [id number] documented in this encounter Visit Diagnoses Diagnosis Syncope, unspecified syncope type- Primary PVC (premature ventricular contraction) Other premature beats Syncope, unspecified syncope type PVC (premature ventricular contraction) Other premature beats Syncope, unspecified syncope type PVC (premature ventricular contraction) Other premature beats Syncope, unspecified syncope type PVC (premature ventricular contraction) Other premature beats documented in this encounter Care Teams Production Line Solderer Relationship Specialty Start Date End Date Mary Fabian MD [address] [facility] [place] [address] PCP - General FAMILY PRACTICE 08/25/19 documented as of this encounter
--- OUTSIDE RECORDS SUMMARY | 2024-03-18 22:36 | XMS_ITS | Encounter Summary ---
Author Organization [facility] Address [address] [place] [address]. 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 [place] [address] [place] [address] Stuart Garrett MD [facility]. [facility] [address] [place] [address] documented as of this encounter Visit Diagnoses Not on filedocumented in this encounter Care Teams Supervisor Metal Fabricating Relationship Specialty Start Date End Date Beau Clement MD [address] [facility] [address] [place], [place] [id number] PCP - General FAMILY PRACTICE 08/25/19 documented as of this encounter
--- OUTSIDE RECORDS SUMMARY | 2024-03-18 22:36 | XMS_ITS | Encounter Summary ---
Author Organization [facility] Address [address] [place] [address]. [place] [address] [place] [address] Care Team Providers Care Deicer Inspector Pneumatic Name Role Phone Beau Clement MD Primary Care Provider + [phone] Encounter Details Date Type Department Care Team (Late st Contact Info) Description 08/29/2019 Orders Only [facility] Anaesthetic Technician [address] [place], [place] [address] Stuart Garrett MD Three [facility]. 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 [place] [address] [place], [place] [phone] documented as of this encounter Results * PRE-SURGICAL/PRE-PROCEDURE CORONAVIRUS (COVID 19) (09/18/2019 8:30 AM CDT) CORONAVIRUS SARS COV 2 PCR (RESP) NOT DETECTED NOT DETECTED 09/20/2019 5:13 AM CDT [facility] Comment: A Not Detected (negative) test result for this test means that SARS- CoV-2 RNA was not present in the specimen above the limit of detection. A negative result does not rule out the possibility of COVID-19 and should not be used as the sole basis for treatment or patient management decisions. ??If COVID-19 is still suspected, based on exposure history together with other clinical findings, re-testing should be considered in consultation with public health authorities. Laboratory test results should always be considered in the context of clinical observations and epidemiological data in making a final diagnosis and patient management decisions. Please review the Fact Sheets and FDA authorized labeling available for health care providers and patients using the following websites: https://www.[employer].com/home/Covid-19/HCP/Quest[employer]/fact- sheet.html https://www.[employer].Company Data Trees/home/Covid-19/Patients/ QuestIVD/fact-sheet.html This test has been authorized by the FDA under an Emergency Use Authorization (EUA) for use by authorized laboratories. Due to the current public health emergency, [facility] is receiving a high volume of samples from a wide variety of swabs and media for COVID-19 testing. In order to serve patients during this public health crisis, samples from appropriate clinical sources are being tested. Negative test results derived from specimens received in non-commercially manufactured viral collection and transport media, or in media and sample collection kits not yet authorized by FDA for COVID-19 testing should be cautiously evaluated and the patient potentially subjected to extra precautions such as additional clinical monitoring, including collection of an additional specimen. Methodology: ??Nucleic Acid Amplification Test (NAAT) includes PCR or TMA Additional information about COVID-19 can be found at the [facility] website: www.[employer].Company Data Trees/Covid19. Test performed at [facility] [place] [address] [place], [place] ??[id number] Director: MALENA GRUBER DO,MPH NASOPHARYNGEAL SWAB / Unknown 09/18/2019 8:30 AM CDT us Stuart Garrett MD MICROBIOLOGY - GENERAL ORDERABLE S Final Result [facility] [address] [address], documented in this encounter Visit Diagnoses Diagnosis Pre-op testing- Primary Preoperative examination, unspecified documented in this encounter Care Teams Deicer Inspector Pneumatic Relationship Specialty Start Date End Date Beau Clement MD [address] [place] [address] PCP - General FAMILY PRACTICE 08/25/19 documented as of this encounter
--- OUTSIDE RECORDS SUMMARY | 2024-03-18 22:36 | XMS_ITS | Encounter Summary ---
Author Organization [facility] Address [address] [place] [address]. [place] [address] [place] [address] Care Team Providers Care Art Psychotherapist Name Role Phone Beau Clement MD Primary Care Provider + [phone] Encounter Details Date Type Department Care Team (Late Contact Info) Description 08/22/2019 Scan [facility] at [address] [phone] Scanned, Documents Social History Tobacco Use Types Packs/Day Years Used Date Smoking Tobacco: Never Assessed Comments Unknown Sex and Gender Information Value [...] (Late Contact Info) Description 02/05/2025 10:00 AM 3D ANIMATOR Office Visit [facility], [address] [phone] Stuart Garrett MD Three [facility] [address] [place] [address] documented as of this encounter Procedures Procedure Name Priority Date/Time Associated Diagnosis Comments ECG GENERIC (SCAN ORDER) Routine 08/22/2019 documented in this encounter Results * ECG (08/22/2019) us Documents Scanned SCANNING Final Result Performing Organization Address City/State/[facility] Co de Phone Number [facility] ON[facility] documented in this encounter Visit Diagnoses Not on filedocumented in this encounter Care Teams Art Psychotherapist Relationship Specialty Start Date End Date Beau Clement MD [address] [place] [address] PCP - General FAMILY PRACTICE 08/25/19 documented as of this encounter
--- OUTSIDE RECORDS SUMMARY | 2024-03-18 22:36 | XMS_ITS | Encounter Summary ---
Author Organization [facility] [facility] Address [address] [place] [address]. [place] [address] [place] [address] Care Team Providers Care Sales Office Administrator Name Role Phone Beau Clement MD Primary Care Provider + [phone] Reason for Visit * Reason Onset Date Comments Information 09/20/2019 verify instructi ons for EPS Encounter Details Date Type Department Care Team (Late st Contact Info) Description 09/20/2019 Telephone [facility] [address] Emelyn Basurto RN Information (verify instructions for EPS) Social History Tobacco Use Types Packs/Day Years [...] Progress Notes * Emelyn Basurto RN - 09/20/2019 11:11 AM CDT I informed the patient that her COVID testing was negative. The patient states that she does have some sinus drainage but nothing severe. The patient has been self-isolating since her testing. I instructed the patient to hold her Metoprolol today (she takes at night), nothing to eat or drink after midnight, and arrive at 9am. The patient verbalized understanding and had no further questions. Message to Julisa LÓPEZ documented in this encounter Plan of Treatment Upcoming Encounters Date Type Department Care Team (Late st Contact Info) Description 02/05/2025 10:00 AM BUSINESS PARTNER Office Visit [facility] THREE [facility], [place] [address] [place], [place] [phone] Stuart Garrett MD [facility]. [place] [address] [place], [place] [phone] documented as of this encounter Visit Diagnoses Not on filedocumented in this encounter Additional Health Concerns Infection Onset Date Last Indicated Resolved Time COVID-19 Rule Out 09/18/2019 09/18/2019 09/20/2019 5:13 AM CDT documented as of this encounter Care Teams Sales Office Administrator Relationship Specialty Start Date End Date Beau Clement MD [address] [place], [place] [phone] PCP - General FAMILY PRACTICE 08/25/19 documented as of this encounter
--- OUTSIDE RECORDS SUMMARY | 2024-03-18 22:36 | XMS_ITS | Encounter Summary ---
Author Organization [facility] Address [address] [place] [address]. [place] [address] [place] [address] Care Team Providers Care Ruby Engineer Name Role Phone Beau Clement MD Primary Care Provider + [phone] Encounter Details Date Type Department Care Team (Latest Contact Info) Description 09/01/2019 Travel Social History Tobacco Use Types Packs/Day [...] st Contact Info) Description 02/05/2025 10:00 AM HOSPITAL CLEANER Office Visit [facility] THREE [facility], [facility] [address] [place] [address] Stuart Garrett MD [facility]. [place] [address] [place] [address] documented as of this encounter Visit Diagnoses Not on filedocumented in this encounter Care Teams Ruby Engineer Relationship Specialty Start Date End Date Beau Clement MD [address] [place], [place] [phone] PCP - General FAMILY PRACTICE 08/25/19 documented as of this encounter
--- OUTSIDE RECORDS SUMMARY | 2024-03-18 22:36 | XMS_ITS | Encounter Summary ---
Author Organization [facility] Address [address] [place] [address]. [place] [address] [place] [address] Care Team Providers Care Brownell Operator Name Role Phone Beau Clement MD Primary Care Provider + [phone] Encounter Details Date Type Department Care Team (Latest Contact Info) Description 05/20/2020 Travel Social History Tobacco Use Types Packs/Day [...] have Coronavirus / COVID-19? No / Unsure 05/20/2020 10:49 AM CDT documented as of this encounter Plan of Treatment Upcoming Encounters Date Type Department Care Team (Late st Contact Info) Description 02/05/2025 10:00 AM ROD GREASER Office Visit [facility] THREE [facility], [place] [address] [place] [address] Stuart Garrett MD [facility]. [facility] [address] [place] [address] documented as of this encounter Visit Diagnoses Not on filedocumented in this encounter Care Teams Brownell Operator Relationship Specialty Start Date End Date Beau Clement MD [address] [facility] [address] [place], [place] [phone] PCP - General FAMILY PRACTICE 08/25/19 documented as of this encounter
--- OUTSIDE RECORDS SUMMARY | 2024-03-18 22:36 | XMS_ITS | Encounter Summary ---
Author Organization [facility] Address [address] [place] [address]. [place] [address] [place] [address] Care Team Providers Care Instrument Maker Apprentice Name Role Phone Beau Clement MD Primary Care Provider + [phone] Encounter Details Date Type Department Care Team (Late st Contact Info) Description 03/29/2020 Patient Self-Triage [facility] DEPARTMENT [address] [place] [address] [facility] Provider Social History Tobacco Use Types [...] st Contact Info) Description 02/05/2025 10:00 AM HONING MACHINE SET UP OPERATOR Office Visit [facility] THREE [facility], [place] [address] [place] [address] Stuart Garrett MD Three [facility]. [place] [address] [place] [address] documented as of this encounter Visit Diagnoses Not on filedocumented in this encounter Care Teams Instrument Maker Apprentice Relationship Specialty Start Date End Date Beau Clement MD [address] [place], [place] [phone] PCP - General FAMILY PRACTICE 08/25/19 documented as of this encounter
--- OUTSIDE RECORDS SUMMARY | 2024-03-18 22:36 | XMS_ITS | Encounter Summary ---
Author Organization [facility] Address [address] [place] [address]. [place] [address] [place] [address] Care Team Providers Care Shear Scrapman Name Role Phone Beau Clement MD Primary Care Provider [phone] Reason for Referral * Surgical (Routine) - Closed Specialty Diagnoses / Procedures Referred By Dede cat Referred To Contact Procedures Case request operating room: INJECTION EPIDURAL TRANSFORAMINAL L4-5, L5-S1 Maribel Qureshi APNP Phone: tel: fax: Referral ID Status Reason Start Date Expiration Date Visits Re quested Visits Authorized [id number] Closed 12/11/2020 01/11/2022 1 1 Encounter Details Date Type Department Care Team (Late st Contact Info) Description 12/11/2020 Prep for Procedure [facility] [address] [place], [place] [id number] [id number] Maribel Qureshi APNP [address] [place] [phone] Social History Tobacco Use Types Packs/Day Years [...] st Contact Info) Description 02/05/2025 10:00 AM DUST MIXER Office Visit [facility], [facility] [address] [place], [place] [phone] Stuart Garrett MD [facility]. [facility] [address] [place] [address] Scheduled Orders Name Type Priority Associated Diagnoses Order Schedule Case request operating room: INJECTION EPIDURAL TRANSFORAMINAL L4-5, L5-S1 Case Request Routine Once for 1 Occurrences starting 12/11/2020 until 12/11/2020 documented as of this encounter Visit Diagnoses Not on filedocumented in this encounter Care Teams Shear Scrapman Relationship Specialty Start Date End Date Beau Clement MD [address] [place] [address] PCP - General FAMILY PRACTICE 08/25/19 documented as of this encounter
--- OUTSIDE RECORDS SUMMARY | 2024-03-18 22:36 | XMS_ITS | Encounter Summary ---
Author Organization [facility] Address [address] [place] [address]. [place] [address] [place] [address] Care Team Providers Care Clean Up Helper Banquet Name Role Phone Beau Clement MD Primary Care Provider + [phone] Encounter Details Date Type Department Care Team (Latest Contact Info) Description 09/21/2019 Travel Social History Tobacco Use Types Packs/Day [...] st Contact Info) Description 02/05/2025 10:00 AM CASTING ROOM HELPER Office Visit [facility], [facility] [address] [place] [address] Stuart Garrett MD [facility]. [place] [address] [place] [address] documented as of this encounter Visit Diagnoses Not on filedocumented in this encounter Care Teams Clean Up Helper Banquet Relationship Specialty Start Date End Date Beau Clement MD [address] [place], [place] [phone] PCP - General FAMILY PRACTICE 08/25/19 documented as of this encounter
--- OUTSIDE RECORDS SUMMARY | 2024-03-18 22:36 | XMS_ITS | Encounter Summary ---
Author Organization [facility] Address [address] [place] [address]. [place] [address] [place] [address] Care Team Providers Care Financial Reporting Manager Name Role Phone Mary Fabian MD Primary Care Provider [phone] Reason for Visit * Reason Comments Supraventricular Tachycardia 4 WK ABLATI ON F/U Syncope * Consultation/Treatment (Routine) - Closed Specialty Diagnoses / Procedures Referred By Contac t Referred To Contact CARDIOLOGY / Cardiology Diagnoses Syncope and collapse Procedures OFFICE VISIT Mary Fabian MD [address] [place] [address] Phone: tel: fax: Stuart Garrett MD [facility]. [facility] [address] [place] [address] Phone: tel: fax: Referral ID Status Reason Start Date Expiration Date Visits Re quested Visits Authorized [id number] Closed 08/28/2019 08/28/2020 6 6 Encounter Details Date Type Department Care Team (Latest Contact Info) Description 10/16/2019 11:00 AM CDT Office [facility] [address] [place] [address] Julisa Cummings PA-C [facility] [address] [place] [address] Supraventricular Tachycardia (4 WK ABLATION F/U); Syncope Social History Tobacco Use Types Packs/Day [...] Sign Reading Time Taken Comments Blood Pressure 142/80 10/16/2019 11:05 AM CDT Pulse 64 10/16/2019 11:05 AM CDT Temperature - - Respiratory Rate - - Oxygen Saturation 98% 10/16/2019 11:05 AM CDT Inhaled Oxygen Concentration - - Weight 58.1 kg (128 lb) 10/16/2019 11:05 AM CDT Height 165.1 cm (5' 5 ) 10/16/2019 11:05 AM CDT Body Mass Index 21.3 10/16/2019 11:05 AM CDT documented in this encounter Patient Instructions * Patient Instructions* Raeann Conner - 10/16/2019 11:00 AM CDT Images from the original note were not included. Patient Education Patient Education Supraventricular Tachycardia (SVT) The Basics Written by the doctors and editors at [facility] What is supraventricular tachycardia (SVT)???--??Supraventricular tachycardia, also called SVT, is a heartbeat that is faster than normal. It usually starts and stops suddenly, without warning. SVTis also called paroxysmal supraventricular tachycardia or PSVT. (Paroxysmal means a sudden attack.) SVT happens because of a problem with the heart's electrical system. It starts in the upper chambers of the heart, called the atria (figure 1). The fast heartbeat can last from a few minutes to hours, but usually lasts for 10 to 15 minutes. It often happens when you are at rest. But in some people, exercise triggers it. The 3 main types of SVT are called: ?? Atrioventricular cris reentry tachycardia (AVNRT) ?? Atrioventricular reentry tachycardia (AVRT) ?? Atrial tachycardia What are the symptoms of SVT???--??You might not have symptoms. But you might feel that your heart is beating too fast, beating hard, or seems to skip a beat. These kinds of heartbeat changes are called palpitations. You might also feel: ?? Lightheaded ?? Dizzy ?? Very tired If you also have coronary heart disease, you might also: ?? Have trouble breathing ?? Feel a tightness in your chest Should I see a doctor or nurse???--??If you have trouble breathing or have chest pain that lasts for more than a few minutes, call for an ambulance (in the [place] and [place], dial [id number]). If you do not have these problems, but you often feel your heart beating fast or irregularly, talk to your doctor or nurse. Is there a test for supraventricular tachycardia???--??Yes. Your doctor or nurse will do a test called an electrocardiogram, also known as an ECG. This test measures the electrical activity in yourheart (figure 2). Other possible tests include: ?? Holter monitor - This is a small, portable machine you wear that records all the heart's electrical activity over 1 or 2 days (figure 3). ?? Event or loop monitor - These are similar to Holter monitors but smaller, because they don't record all the time. Instead, you start the monitor when you feel symptoms (figure 4). Your doctor willlikely have you wear this type of monitor every day for about a month. How is supraventricular tachycardia treated???--??The treatment depends on the cause of the tachycardia. When your heartbeat is very fast, your doctor might suggest ways to slow it down. He or she might have you cough, or bear down as if you're having a bowel movement. Doing these things can affectthe nerve that helps control your heartbeat. Other treatments can include: ?? Medicines to control the speed or rhythm of your heartbeat ?? A treatment called cardioversion that involves applying a mild electrical current to the heartto fix its rhythm ?? Treatments called ablation. Ablation treatments use heat (called radiofrequency ablation ) orcold (called cryoablation ) to destroy the small part of the heart that is sending the abnormal electrical signals. All topics are updated as new evidence becomes available and our peer review process is complete. This topic retrieved from [employer] on: Aug 31, 2019. Topic 15584 Version 7.0 Release: 28.3.2 - C28.250 ?2019??[employer] and/or its affiliates.??All rights reserved. figure 1: Normal heart This is a drawing of a normal heart. The heart has 4 chambers: right atrium, left atrium, right ventricle, and left ventricle. Blood flows from the right atrium to the right ventricle through the tricuspid valve. Blood flows from the left atrium to the left ventricle through the mitral valve. Graphic 89354 Version 3.0 figure 2: Person having an ECG This drawing shows a man having an ECG (also called an electrocardiogram or EKG). He has patches, called electrodes, stuck onto his chest, arms, and legs. Wires run from the electrodes to the ECG machine. An ECG measures the electrical activity in the heart. Graphic 99297 Version 2.0 figure 3: Holter monitor People with possible [...] or certain times of the day. Graphic 66307 Version 8.0 figure 4: Cardiac event recorder An event recorder is a portable device patients can use to measure their heart rhythm for a short time. The patient must activate the recorder and hold it to the chest when they feel symptoms. It is useful for patients that have intermittent symptoms that may not be captured with other forms of testing. Graphic 66546 Version 4.0 Consumer Information Use and Disclaimer This information [...] that is right for you.The use of [employer] content is governed by the [employer] Terms of Use. ??2020 [employer]. All rights reserved. Copyright ?2020??[employer] and/or its affiliates.??All rights reserved. documented in this encounter Progress Notes * Julisa Cummings PA-C - 10/16/2019 11:00 AM CDT Reason for Visit: Supraventricular Tachycardia (4 WK ABLATION F/U) and Syncope History of Present Illness: Dottie Bryant is a 74-year-old female with a past medical history of syncope, palpitations, andhypertension here today for scheduled follow up appointment. 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 Patient has been doing well since her last office visit. No new chest pain, dyspnea, palpitations, irregular heart beats, near-syncope, fatigue, orthopnea, claudication or lower extremity edema. Patient deniesany further syncopal episodes. Patient remains mindful of [...] ECG today shows sinu bradycardia with stable SD and QT intervals. No significant arrhthymias noted on recent Holter monitoring to explain her syncope. 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 Denies any further syncopal episodes at this time.Still with some palpitations. Would consider a implantable loop recorder??should she have any recurrent syncopal episodes or worsening palpitations. Her blood pressure is elevated today. Encouraged her to monitor her blood pressure closely for now. Encouraged her to remain active and mindful of [facility]. It is my pleasure to participate in [facility]. We will follow up with the patient in 6 months or sooner if needed. Data Reviewed ECG today shows sinus bradycardia with stable SD and QT intervals ES Study 09/21/2019: SVT induced in EP lab [...] noted. ? Medications: Current Outpatient Medications: ??? alendronate 70 MG tablet, Take 1 tablet by mouth weekly., Disp: , Rfl: ??? aspirin EC 81 MG tablet, Take 81 mg by mouth every morning., Disp: , Rfl: ??? atorvastatin 10 MG tablet, Take 10 mg by mouth daily., Disp: , Rfl: ??? folic acid 800 MCG tablet, Take 400 mcg by mouth every morning., Disp: , Rfl: ??? metoprolol succinate ER [...] shortness of breath and snoring. Cardiovascular: See HPI. Negative for chest pain, palpitations, claudication, leg swelling and PND. Gastrointestinal: Negative for blood in stool and melena. Genitourinary: Negative for dysuria. Musculoskeletal: Negative for myalgias and new or worsening joint stiffness/pain. Skin: Negative for rash. Neurological: Negative for tingling/numbness and focal weakness. Endo/Heme/Allergies: Negative for new or significant bruising/bleeding and polydipsia. Psychiatric/Behavioral: Negative for depression and new or significant memory loss. Vitals: 10/16/19 1105 BP: 142/80 Pulse: 64 Body mass index is 21.3 kg/m??. Physical Exam Constitutional: No distress. HENT: Mask in place. Eyes: Pupils equal, round, and reactive to light. Conjunctivae normal. Neck: Normal range of motion. Neck supple. No JVD. Pulmonary: Effort normal. Breath sounds normal. Abdomen: No distension. Neurological: Alert. Oriented x 3. Appropriate for situation. Normal motor skills. Normal gait. Skin: Dry. Warm. No cyanosis. No clubbing. Musculoskeletal: No kyphosis. Normal ROM. Cardiovascular: Rate: Regular rhythm and Normal rate. PMI: PMI not displaced Pulses: Negative for edema. Heart Sounds: Normal heart sounds. Normal S1 and Normal S2 No gallop. No S3 sound. No S4 sound and No murmur. Cardiovascular Comments: Diagnoses/Impression: 1. Syncope, unspecified syncope type 2. SVT (supraventricular tachycardia) (CMS/HCC) 3. Essential (primary) hypertension Referring Provider: Mary Fabian MD PCP: MARY FABIAN MD documented in this encounter Plan of Treatment Upcoming Encounters Date Type Department Care Team (Late st Contact Info) Description 02/05/2025 10:00 AM ATHLETIC COACH Office Visit [facility], [facility] [address] [place], [place] [id number] Stuart Garrett MD [facility]. [facility] [address] [place], [place] [id number] documented as of this encounter Visit Diagnoses Diagnosis Syncope, unspecified syncope type- Primary SVT (supraventricular tachycardia) ([facility]/HCC HHS/HCC) Other specified cardiac dysrhythmias Essential (primary) hypertension Unspecified essential hypertension documented in this encounter Care Teams Financial Reporting Manager Relationship Specialty Start Date End Date Mary Fabian MD [address] [facility] [address] [place], [place] [id number] PCP - General FAMILY PRACTICE 08/25/19 documented as of this encounter
--- OUTSIDE RECORDS SUMMARY | 2024-03-18 22:36 | XMS_ITS | Encounter Summary ---
Author Organization [facility] Address [address] [place] [address]. [place] [address] [place] [address] Care Team Providers Care Seismology Technical Officer Name Role Phone Mary Fabian MD Primary Care Provider [phone] Reason for Visit * Reason Comments Syncope 6 mo follow up * Consultation/Treatment (Routine) - Closed Specialty Diagnoses / Procedures Referred By Contac t Referred To Contact CARDIOLOGY / Cardiology Diagnoses Syncope and collapse Procedures OFFICE VISIT Mary Fabian MD [address] [place] [address] Phone: tel: fax: Stuart Garrett MD [facility]. [facility] [place] [address] [place] [address] Phone: tel: fax: Referral ID Status Reason Start Date Expiration Date Visits Re quested Visits Authorized [id number] Closed 08/28/2019 08/28/2020 6 6 Encounter Details Date Type Department Care Team (Late st Contact Info) Description 05/20/2020 11:00 AM CDT Office Visit [facility], [place] [address] [place] [address] Stuart Garrett MD [facility]. [facility] [address] [place] [phone] Syncope (6 mo follow up) Social History Tobacco Use Types Packs/Day Years [...] Sign Reading Time Taken Comments Blood Pressure 140/82 05/20/2020 10:55 AM CDT Pulse 67 05/20/2020 10:55 AM CDT Temperature - - Respiratory Rate - - Oxygen Saturation 97% 05/20/2020 10:55 AM CDT Inhaled Oxygen Concentration - - Weight 54.9 kg (121 lb) 05/20/2020 10:55 AM CDT Height 165.1 cm (5' 5 ) 05/20/2020 10:55 AM CDT Body Mass Index 20.14 05/20/2020 10:55 AM CDT documented in this encounter Patient Instructions * Patient Instructions* Raeann Conner - 05/20/2020 11:00 AM CDT Images from the original note were not included. Patient Education Patient Education Supraventricular Tachycardia (SVT) The Basics Written by the doctors and editors at [facility] What is supraventricular tachycardia (SVT)???--??Supraventricular tachycardia, [...] in yourheart (figure 2). Other possible tests include various types of longer-term heart monitoring. This can be done using one of several devices. ?? Holter monitor - This is a small, portable machine you wear that records all your heart's electrical activity over 1 or 2 days (figure 3). ?? Event or loop monitor - These are similar to Holter monitors but smaller, because they don't record all the time. Instead, you start the monitor when you feel symptoms (figure 4). Your doctor [facility] have you wear this type of monitor every day for about a month. ?? Patch monitor - This is a newer type of monitor. It goes directly on the skin, without wires, and can be worn for up to 14 days. You wear it all the time while you go about your usual activities. How is supraventricular tachycardia treated???--??The treatment depends on the cause of the tachycardia. When your heartbeat is very fast, your doctor might suggest ways to slow it down. They might have you cough, or bear down as if you're having a bowel movement. Doing these things can affect the nerve that helps control your heartbeat. Other treatments can include: ?? Medicines to control the speed or rhythm of your heartbeat ?? A treatment called cardioversion - This involves applying a mild electrical current to the heart to fix its rhythm. ?? Treatments called ablation - These treatments destroy the small part of the heart that is sending the abnormal electrical signals. They can use heat (called radiofrequency ablation ) or cold (called cryoablation ) to do this. All topics are updated as new evidence becomes available and our peer review process is complete. This topic retrieved from [employer] on: Feb 12, 2020. Topic [id number] Version 8.0 Release: 28.5.3 - C28.469 ?2019??[employer] and/or its affiliates.??All rights reserved. figure 1: Normal heart This is a drawing of a normal heart. The heart has 4 chambers: right atrium, left atrium, right ventricle, and left ventricle. Blood flows from the right atrium to the right ventricle through the tricuspid valve. Blood flows from the left atrium to the left ventricle through the mitral valve. Graphic 10045 Version 3.0 figure 2: Person having an ECG This drawing shows a man having an ECG (also called an electrocardiogram or EKG). He has patches, called electrodes, stuck onto his chest, arms, and legs. Wires run from the electrodes to the ECG machine. An ECG measures the electrical activity in the heart. Graphic 48423 Version 2.0 figure 3: Holter monitor People [...] or certain times of the day. Graphic 47785 Version 8.0 figure 4: Cardiac event recorder An event recorder is a portable device patients can use to measure their heart rhythm for a short time. The patient must activate the recorder and hold it to the chest when they feel symptoms. It is useful for patients that have intermittent symptoms that may not be captured with other forms of testing. Graphic 82573 Version 4.0 Consumer Information Use and Disclaimer [...] that is right for you.The use of [employer] content is governed by the [employer] Terms of Use. ??2020 [employer]. All rights reserved. Copyright ?2020??[employer] and/or its affiliates.??All rights reserved. documented in this encounter Progress Notes * Stuart Garrett MD - 05/20/2020 11:00 AM CDT Reason for Visit: Syncope (6 mo follow up) History of Present Illness: Dottie Bryant is [...] ECG today shows sinu bradycardia with stable LA and QT intervals. No significant arrhthymias noted [...] her to remain active and mindful of [facility]. It is my pleasure to participate in Dottie Nguyen care. We will follow up with the patient in 1 year. Data Reviewed EPS Study 09/21/2019: SVT induced in EP lab [...] new or significant memory loss. Filed Vitals: 05/20/20 1055 BP: 140/82 Pulse: 67 SpO2: 97% Weight: 54.9 kg (121 lb) Height: 5' 5 (1.651 m) Body mass index is 20.14 kg/m??. Physical Exam Constitutional: Healthy appearance. No distress. HENT: Mask in place. Eyes: Pupils equal, round, and reactive to light. Neck: Normal range of motion. No JVD. No neck adenopathy. No thyromegaly. Pulmonary: Abdomen: Neurological: Alert. Oriented x 3. Appropriate mood and affect. Normal motor skills. Normal gait. Skin: Musculoskeletal: Normal ROM. Cardiovascular: Rate: PMI: Pulses: Heart Sounds: Cardiovascular Comments: Diagnoses/Impression: No diagnosis found. Referring Provider: Mary Fabian MD PCP: MARY FABIAN MD documented in this encounter Plan of Treatment Upcoming Encounters Date Type Department Care Team (Late st Contact Info) Description 02/05/2025 10:00 AM CHARM FILTER OPERATOR HELPER Office Visit [facility] [address] [facility] [address], [place] [address] [place], [place] [id number] Stuart Garrett MD Three [facility]. [place] [address] [place], [place] [id number] documented as of this encounter Visit Diagnoses Diagnosis SVT (supraventricular tachycardia) ([facility]/HCC [facility])- Primary Other specified cardiac dysrhythmias documented in this encounter Care Teams Seismology Technical Officer Relationship Specialty Start Date End Date Mary Fabian MD [address] [facility] [address] [place], [place] [phone] PCP - General FAMILY PRACTICE 08/25/19 documented as of this encounter
--- OUTSIDE RECORDS SUMMARY | 2024-03-18 22:36 | XMS_ITS | Encounter Summary ---
Author Organization [facility] Address [address] [place] [address]. [place] [address] [place] [address] Care Team Providers Care Cutter Brake Lining Name Role Phone Mary Fabian MD Primary Care Provider [phone] Reason for Visit * Consultation/Treatment (Routine) - Closed Specialty Diagnoses / Procedures Referred By Contac t Referred To Contact PAIN MANAGEMENT / [facility] Pain Management Diagnoses Low back pain LBP Procedures CONSULT / TREAT Mary Fabian MD [address] [place] [address] Phone: tel: fax: Maribel Qureshi APNP Phone: tel: fax: Referral ID Status Reason Start Date Expiration Date Visits Re quested Visits Authorized [id number] Closed 12/10/2020 12/11/2021 6 6 Encounter Details Date Type Department Care Team (Latest Contact Info) Description 12/11/2020 8:19 AM CDT - 12/11/2020 10:21 AM CDT Hospital Encounter [facility] [address] [place], [place] [id number] Maribel Qureshi APNP [address] [place] [phone] Discharge Disposition: Home or Self Care (Routine [...] Sign Reading Time Taken Comments Blood Pressure 164/80 12/11/2020 10:10 AM CDT Pulse 80 12/11/2020 8:45 AM CDT Temperature 37 ??C (98.6 ??F) 12/11/2020 8:45 AM CDT Respiratory Rate 20 12/11/2020 8:45 AM CDT Oxygen Saturation 100% 12/11/2020 8:45 AM CDT Inhaled Oxygen Concentration - - Weight 49 kg (108 lb) 12/11/2020 8:45 AM CDT Height 160 cm (5' 3 ) 12/11/2020 8:45 AM CDT Body Mass Index 19.13 12/11/2020 8:45 AM CDT documented in this encounter Medications at Time of Discharge aspirin EC 81 MG tablet Take 81 mg by mouth every morning. calcium-vitamin D 250-125 MG-UNIT tablet Take 1 tablet by mouth daily. metoprolol succinate ER 25 MG 24 hr [...] prior to procedure 1 tablet 12/16/2020 1 folic acid 800 MCG tablet Take 400 mcg by mouth every morning. 2 traMADol 50 MG tablet Take 50 mg by mouth. 11/22/2020 2 documented as of this encounter H&P Notes * Maribel QureshiMAKAYLA - 12/11/2020 9:30 AM CDTSummary: Left low back pain that radiates to [...] epidural steroid injections in approximately 2010 at [facility], which provided long- lasting improvement, states years [...] her pain. Previous treatments tried: She underwent patient care nursing assistant at [facility] in [place], [place] 3 to 4 years ago, did notice some temporary improvement with the treatments. She received epidural steroid injections at [facility] 10 to 11 years ago, which she [...] Gatherings with Friends and Family: ??? Attends Mandaeism Services: ??? Active Member of Clubs or [...] left groin. Right foot pain, follows with tare man Obi Gabriel MD, has undergone injections the [...] x-ray of the sacroiliac joints on 11/08/2020 [facility]. The radiologist report was reviewed and [...] Jasen Quick M.D. ML: ALYSON Report ID: [id number] Reading Location: [place] [address] She had an MRI of the lumbar [...] 9:34 AM CDT documented in this encounter Plan of Treatment Upcoming Encounters Date Type Department Care Team (Late st Contact Info) Description 02/05/2025 10:00 AM CHIEF EXECUTIVE Office Visit [facility], [address] [place] [address] Stuart Garrett MD Three [facility]. [address] [place] [address] documented as of this encounter Results * XR HIP LT 2V (12/11/2020 10:55 AM CDT) Anatomical Region Laterality Modality Hip Radiographic Maya ging 12/11/2020 11:0 1 AM CDT Impressions 12/11/2020 11:04 AM CDT DISCUSSION and IMPRESSION: AP view of the [...] Interpreted By: Chauncey Sanches, 12/11/2020 11:01 AM Narrative 12/11/2020 11:04 AM CDT IMAGING STUDIES: XR HIP LT 2V ? DATE: ??12/11/2020 10:55 AM HISTORY: ??osteoarthritis ? 75-year-old female with left hip pain. History of arthritis. No known specific injury. COMPARISON: ??MRI lumbar spine 12/06/2020. Procedure Note Chauncey Sanches MD - 12/11/2020 IMAGING STUDIES: XR HIP LT 2VDATE: 12/11/2020 10:55 AM HISTORY: osteoarthritis 75-year-old female with left hip pain.History of arthritis. No known specific injury. COMPARISON: MRI lumbar spine 12/06/2020. DISCUSSION and IMPRESSION: AP view of the pelvis and hips and AP view and lateral view of the lefthip. No acute fracture or dislocation. Minimal hypertrophic spurring at the femoral greater trochantersbilaterally. Hip joint spaces are within normal limits for age. Multiple small surgical clips in the left groin region. At least moderate degenerative changes of the lower lumbar spine andlumbosacral junction. Moderate degenerative changes at the symphysis pubis. Mild degenerativechanges at the sacroiliac joints. Arterial atherosclerotic calcifications in the pelvis and proximalthighs. Moderate volume colonic stool. Referred By: MARY FABIAN Interpreted By: Chauncey Sanches, 12/11/2020 11:01 AM us [facility] Final Resu lt documented in this encounter Visit Diagnoses Diagnosis Osteoarthritis of left hip, unspecified osteoarthritis type- Primary Osteoarthritis of left hip, unspecified osteoarthritis type documented in this encounter Care Teams Cutter Brake Lining Relationship Specialty Start Date End Date Mary Fabian MD [address] [place] [address] PCP - General FAMILY PRACTICE 08/25/19 documented as of this encounter
--- OUTSIDE RECORDS SUMMARY | 2024-03-18 22:36 | XMS_ITS | Encounter Summary ---
Author Organization [facility] Address [address] [place] [address]. [place] [address] [place] [address] Care Team Providers Care Gas Meter Installer Helper Name Role Phone Beau Clement MD Primary Care Provider [phone] Encounter Details Date Type Department Care Team (Late st Contact Info) Description 09/21/2019 Orders Only [place] Handler [address] [place], [place] [address] Stuart Garrett MD Three [facility]. [facility] [address] [place], [place] [phone] Social History Tobacco Use Types Packs/Day Years [...] st Contact Info) Description 02/05/2025 10:00 AM ETCHER PHOTOENGRAVING Office Visit [facility], [address] [place], [place] [phone] Stuart Garrett MD Three [facility]. [address] [place], [place] [phone] documented as of this encounter Visit Diagnoses Not on filedocumented in this encounter Care Teams Gas Meter Installer Helper Relationship Specialty Start Date End Date Beau Clement MD [address] [facility] [address] PCP - General FAMILY PRACTICE 08/25/19 documented as of this encounter
--- OUTSIDE RECORDS SUMMARY | 2024-03-18 22:36 | XMS_ITS | Encounter Summary ---
Author Organization [facility] Address [address] [place] [address]. [place] [address] [place] [address] Care Team Providers Care Combined Rail Operator Name Role Phone Beau Clement MD Primary Care Provider [phone] Reason for Visit * Reason Onset Date Comments Results 09/04/2019 Encounter Details Date Type Department Care Team (Late st Contact Info) Description 09/04/2019 Telephone [facility] [address] Emelyn Basurto, RN Results Social History Tobacco [...] Progress Notes * Emelyn Basurto RN - 09/04/2019 4:45 PM CDT Please let patient know his echo looks good. ??Normal LV systolic function with no significant valvular disease. ?? Above message from Julisa PUGH. I informed the patient of the above information. The patient verbalized understanding and had no further questions. documented in this encounter Plan of Treatment Upcoming Encounters Date Type Department Care Team (Late st Contact Info) Description 02/05/2025 10:00 AM RELIGIOUS EDUCATOR Office Visit [facility] THREE [facility], [address] [place], [place] [phone] Stuart Garrett MD Three [facility]. [address] [place], [place] [phone] documented as of this encounter Visit Diagnoses Not on filedocumented in this encounter Care Teams Combined Rail Operator Relationship Specialty Start Date End Date Beau Clement MD [address] [facility] [address] [place], [place] [phone] PCP - General FAMILY PRACTICE 08/25/19 documented as of this encounter
--- OUTSIDE RECORDS SUMMARY | 2024-03-18 22:36 | XMS_ITS | Encounter Summary ---
Author Organization [facility] Address [address] [place] [address]. [place] [address] [place] [address] Care Team Providers Care Mmd Unit Teacher Name Role Phone Beau Clement MD Primary Care Provider [phone] Encounter Details Date Type Department Care Team (Late st Contact Info) Description 09/18/2019 9:25 AM CDT - 09/18/2019 11:59 PM CDT Hospital Encounter [facility] [place] [address] Stuart Garrett MD Three [facility]. [facility] [address] [place], [place] [phone] Discharge Disposition: Home or Self Care (Routine [...] st Contact Info) Description 02/05/2025 10:00 AM HEAD KILN OPERATOR Office Visit [facility] THREE [facility], [facility] [address] [place] [address] Stuart Garrett MD [facility]. [facility] [address] [place] [address] documented as of this encounter Procedures Procedure Name Priority Date/Time Associated Diagnosis Comments CORONAVIRUS (COVID 19) Routine 09/18/2019 8:30 AM CDT Pre-op testing documented in this encounter Results * PRE-SURGICAL/PRE-PROCEDURE CORONAVIRUS (COVID 19) (09/18/2019 8:30 AM CDT) CORONAVIRUS SARS COV 2 PCR (RESP) NOT DETECTED NOT DETECTED 09/20/2019 5:13 AM CDT [facility] Comment: A Not Detected (negative) test result [...] providers and patients using the following websites: https://www.beRecruited.Arkeo/home/Covid-19/HCP/QuestIVD/fact- sheet.html https://www.beRecruited.Arkeo/home/Covid-19/Patients/ QuestIVD/fact-sheet.html This test has been authorized by the FDA under an Emergency Use Authorization (EUA) for use by authorized laboratories. Due to the current public health emergency, [facility] ??? is receiving a high volume of samples [...] about COVID-19 can be found at the [facility] ??? website: www.Arte Manifiesto/Covid19. Test performed at [facility] [place] [address] [place], [place] ??[id number] Director: MALENA GRUBER DO,MPH NASOPHARYNGEAL SWAB / Unknown 09/18/2019 8:30 AM CDT us Stuart Garrett MD MICROBIOLOGY - GENERAL ORDERABLE S Final Result [facility] [id number] [place] [address] documented in this encounter Visit Diagnoses Diagnosis Pre-op testing Preoperative examination, unspecified documented in this encounter Additional Health Concerns Infection Onset Date Last Indicated Resolved Time COVID-19 Rule Out 09/18/2019 09/18/2019 09/20/2019 5:13 AM CDT documented as of this encounter Care Teams Mmd Unit Teacher Relationship Specialty Start Date End Date Beau Clement MD [address] [place] [address] PCP - General FAMILY PRACTICE 08/25/19 documented as of this encounter
--- OUTSIDE RECORDS SUMMARY | 2024-03-18 22:36 | XMS_ITS | Encounter Summary ---
Author Organization [facility] Address [address] [place] [address]. [place] [address] [place] [address] Care Team Providers Care Harvest Manager Name Role Phone Mary Fabian MD Primary Care Provider [phone] Encounter Details Date Type Department Care Team (Late st Contact Info) Description 12/11/2020 10:22 AM CDT - 12/11/2020 11:59 PM CDT Hospital Encounter [facility] [place] [address] Rina Qureshi MD [address] [facility] [address] [place] [address] Discharge Disposition: Home or Self Care (Routine [...] 11/22/2020 2 documented as of this encounter Plan of Treatment Upcoming Encounters Date Type Department Care Team (Late st Contact Info) Description 02/05/2025 10:00 AM BIOMEDICAL FIELD SERVICE ENGINEER Office Visit [facility], [facility] [address] [place] [address] Stuart Garrett MD [facility]. [facility] [address] [place] [address] documented as of this encounter Procedures Procedure Name Priority Date/Time Associated Diagnosis Comments XR HIP LT 2V Routine 12/11/2020 10:55 AM CDT Osteoarthritis of left hip, unspecified osteoarthritis type documented in this encounter Results * XR HIP LT [...] Interpreted By: Chauncey Sanches, 12/11/2020 11:01 AM [facility] Final Resu lt documented in this encounter Visit Diagnoses Diagnosis Osteoarthritis of left hip, unspecified osteoarthritis type documented in this encounter Care Teams Harvest Manager Relationship Specialty Start Date End Date Mary Fabian MD [address] [place] [address] PCP - General FAMILY PRACTICE 08/25/19 documented as of this encounter
--- OUTSIDE RECORDS SUMMARY | 2024-03-18 22:36 | XMS_ITS | Encounter Summary ---
Author Organization [facility] Address [address] [place] [address]. [place] [address] [place] [address] Care Team Providers Care Compounding Technician Name Role Phone Beau Clement MD Primary Care Provider [phone] Encounter Details Date Type Department Care Team (Latest Contact Info) Description 04/19/2020 Travel Social History Tobacco Use Types Packs/Day [...] COVID-19? No / Unsure 04/19/2020 10:59 AM MAINTENANCE MECHANIC documented as of this encounter Plan of Treatment Upcoming Encounters Date Type Department Care Team (Late st Contact Info) Description 02/05/2025 10:00 AM MAINTENANCE MECHANIC Office Visit [facility] THREE [facility], [address] [address] Stuart Garrett MD [facility]. [facility] [address] [place] [address] documented as of this encounter Visit Diagnoses Not on filedocumented in this encounter Care Teams Compounding Technician Relationship Specialty Start Date End Date Beau Clement MD [address] [place], [place] [phone] PCP - General FAMILY PRACTICE 08/25/19 documented as of this encounter
--- OUTSIDE RECORDS SUMMARY | 2024-03-18 22:39 | XMS_ITS | Clinical Summary ---
Author Organization [address] Address [address] [place] [id number] Care Team Providers Care Classification Officer Name Role Phone Beau Clement MD Unavailable [phone] Beau Clement MD Primary Care Provid er Allergies Active Allergy Reactions Criticality Noted Date Comments Celecoxib Rash Medium 07/14/2018 Medications aspirin 81 mg enteric coated tabletIndicatio ns:heart health Take 1 tablet (81 mg total) by mouth every morning Active calcium carbonate/vitam in D3 (CALCIUM 500 + D ORAL)Indication s:supplement Take 1 tablet by mouth every morning Active donepeziL (ARICEPT) 10 mg tablet TAKE 1 TABLET BY MOUTH EVERY DAY AT NIGHT 90 tablet 3 11/15/2023 Active metoprolol XL (TOPROL-XL) 25 mg extended release tablet TAKE 1 TABLET BY MOUTH EVERY DAY 90 tablet 2 12/06/2023 Active gabapentin (NEURONTIN) 100 mg capsule TAKE 1 CAPSULE BY MOUTH TWICE A DAY 100 capsule 1 12/07/2023 Active ibandronate (BONIVA) 150 mg tabletIndicatio ns:Osteopenia of both hips TAKE 1 TABLET EVERY 30 DAYS TAKE IN AM WITH GLASS OF WATER PRIOR TO FOOD, DON'T LIE DOWN X30 MINUTES 3 tablet 1 12/27/2023 Active atorvastatin (LIPITOR) 40 mg tablet TAKE 1 TABLET BY MOUTH EVERY DAY 90 tablet 3 01/24/2024 Active memantine (NAMENDA) 10 mg tablet TAKE 1 TABLET BY MOUTH TWICE A DAY 180 tablet 3 01/27/2024 Active Active Problems Problem Noted Date Diagnosed Date PCO (posterior capsular opacification), edwige hutson 05/21/2022 Assessment & Plan (07/30/2022 1:18 PM CDT): Healed after YAG cap left eye (OS) Today interested in YAG cap right eye (OD). Note that right eye (OD) may not be as correctable as left eye (OS). Pt wants to change glasses at next postop. Visually significant PCO right eye (OD). R/b/a discused and the patient decided to proceed. All questions were answered. (also see Procedure note) After proper consent was obtained, the patient was carefully transported to the laser room where the operative eye was anesthetized. Using a contact lens, an opening was created in the posterior capsule without difficulty. The lens was then removed, the eye irrigated, and postop drops given. The patient left the laser suite in good condition and the intraocular pressure was checked 30 minutes post-op in the office. Assessment & Plan (07/12/2022 10:00 PM CDT): Plan to YAG cap left eye (OS). Then likely glasses. Do not suspect right eye (OD) will need YAG. Plan spetralis macular OCT on day of YAG cap. Visually significant PCO left eye (OS). R/b/a discused and the patient decided to proceed. All questions were answered. (also see Procedure note) After proper consent was obtained, the patient was carefully transported to the laser room where the operative eye was anesthetized. Using a contact lens, an opening was created in the posterior capsule without difficulty. The lens was then removed, the eye irrigated, and postop drops given. The patient left the laser suite in good condition and the intraocular pressure was checked 30 minutes post-op in the office. Assessment & Plan (05/21/2022 12:14 PM CDT): Plan to YAG cap left eye (OS). Then likely glasses. Do not suspect right eye (OD) will need YAG. Plan spetralis macular OCT on day of YAG cap. Lumbar radiculopathy 02/25/2022 Overview (08/16/2023): Added automatically from request for surgery [id number] Late onset Alzheimer's demen tia without behavioral disturbance, psychotic disturbance, mood disturbance, or anxiety 01/14/2022 Retinal drusen of both eyes 08/15/2021 Assessment & Plan (07/30/2022 1:17 PM CDT): May affect BCVA, but note that mac OCT is not that bad both eyes (OU). Assessment & Plan (05/21/2022 12:13 PM CDT): Plan baseline macular OCT Assessment & Plan (10/01/2021 9:50 AM CDT): Educated pt on signs/symptoms of retinal drusen. Likely NVS, observe. Recommended no smoking, healthy diet, UV protection. Pt to return to clinic with any new or worsening vision changes, ocular pain, flashes/floaters/curtain in vision. Assessment & Plan (08/15/2021 2:51 PM CDT): Educated pt on signs/symptoms of retinal drusen. Likely NVS, observe. Recommended no smoking, healthy diet, UV protection. Pt to return to clinic with any new or worsening vision changes, ocular pain, flashes/floaters/curtain in vision. Pseudophakia of both eyes 08/15/2021 Overview (05/21/2022): Had CE/IOL OD at [facility]. Will obtain IOL records. 12/03/2021- phaco/ intraocular lens (IOL) left eye (OS)- ABarsam Assessment & Plan (07/30/2022 1:19 PM CDT): Had CE/IOL OD at [facility]. Will obtain IOL records. 12/03/2021- phaco/ intraocular lens (IOL) left eye (OS)- ABarsam Will to change MRx after YAG cap right eye (OD). Assessment & Plan (05/21/2022 12:10 PM CDT): Had CE/IOL OD at [facility]. Will obtain IOL records. 12/03/2021- phaco/ intraocular lens (IOL) left eye (OS)- ABarsam BCVA is not much worse than postop. MRx update never given. Told by optom needs YAG cap. Assessment & Plan (10/01/2021 9:50 AM CDT): Had CE/IOL OD at [facility]. Will obtain IOL records. Assessment & Plan (08/15/2021 2:49 PM CDT): Stable, observe. Updated SRx given today. Posterior vitreous detachment of right eye 08/15 Assessment & Plan (08/15/2021 2:53 PM CDT): Discussed retinal precautions - pt to call immediately with new or worsening floaters/flashes/curtain in vision. Syncopal episodes 09/27/2019 Dyslipidemia 09/10/2017 Essential (primary) hypertension 07/01/2015 Osteopenia 07/01/2015 Varicose veins of both lower extremities 016 Vitamin D deficiency 07/01/2015 Lung nodule 07/01/2015 Resolved Problems Problem Noted Date Diagnosed Date Resolved Date Visual field loss 12/10/2021 05/21/2022 Assessment & Plan (12/10/2021 8:53 AM CDT): -grossly full by CVF and with amsler, but patient felt like letters on testing were missing -OCT nerve today without thickening. She has has compact disc OU with in tact GCL -will obtain HVF at f/u S/P cataract extraction and insertion of intraocular lens, left 12/03/2021 05/21/2022 Assessment & Plan (12/10/2021 8:54 AM CDT): POW #1 s/p CE/PCIOL OS - Doing well - D/C ofloxacin in 1 week - Taper prednisolone QID -> TID -> BID -> qday, per week - Reviewed signs/symptoms endophthalmitis, RT/RD; patient to call immediately if any worsening vision, pain, redness, flashes/floaters/curtains. - Okay to resume all activities, except refrain from swimming for one more week. Okay to discontinue Metzger shield at night. - RTC 1 month for Matilde Melgar Assessment & Plan (12/03/2021 9:34 AM CDT): POD #1 s/p CE/PCIOL OS - Doing well. No significant concerns. - Prednisolone QID - Ofloxacin QID - Reviewed signs/symptoms endophthalmitis, retinal tear and detachment; patient to call immediately if any worsening vision, pain, redness, flashes/floaters/curtains - No lifting, bending, or swimming - Metzger shield while sleeping, protective eyewear during day. RTC POW#1 OS. Age-related nuclear cataract of left eye 09/25/2019 05/21/2022 Assessment & Plan (10/01/2021 9:49 AM CDT): Assessment and Plan 1. Visually Significant Cataract of the left eye -Poor dilation without PXF material on lens capsule. - Patient interested in having CE/IOL of the left eye - R/B/A of surgery discussed in detail with patient including but not limited to infection, bleeding, persistent inflammation, diplopia, ptosis, macular edema, need for further surgeries or procedures, need for spectacle correction after surgery, possible loss of vision, possible loss of the eye, and risks of anesthesia. - The patient understands these risks and wishes to proceed. - Target refraction was discussed with the patient. We discussed near, distance, and monovision; we also discussed multifocal, EDOF, and toric lenses. Discussed possible glare/halo following multifocal lenses. The patient elected to target plano. Planned Operation: CE/IOL of the left eye Time: 25 Anesthesia: MAC Local: topical Special equipment: trypan, possible CTR, possible ring Preop meds: None Med Clearance: CPAP IOL Master: will schedule with topography Assessment & Plan (08/15/2021 2:52 PM CDT): Educated pt on signs/symptoms of cataracts. Discussed option of CEIOL OS. Pt would like referral to MD for preop OS. Of note: pt with concern that pt does not see well. Her acuity is relatively good today and I believe some of this is attributable to pt's memory loss for which she has been following with her PCP. Assessment & Plan (09/25/2019 8:48 AM CDT): Here for second opinion for blurred vision OU x 1 month, also light sensitive & feels sore @ times. H/o Cataract surgery OD [address] Manjarrez. Mild PCO right eye (OD) Moderate NS with good vision with correction No age-related macular degeneration (AMD) or optic nerve (ON) cupping Reassurance RTC prn Encounters Date Type Department Care Team Description 03/16/2024 Telephone [facility] Primary Care [address] [facility] [address] [place] [address] Beau Clement MD Medical Question/Miscellaneo us 03/11/2024 Orders Only [facility] [address] [place] [id number] Beny Duff DO 02/01/2024 1:24 PM COMMISSARY CLERK - 02/01/2024 11:59 PM COMMISSARY CLERK Hospital Encounter [facility] Breast Imaging [address] [place] [address] Screening mammogram, encounter for Discharge Disposition: Discharge to home or self care 01/13/2024 Letter (Out) [facility] Family Medicine [address] [phone] 01/13/2024 Telephone [facility] Medicine [address] [phone] Beau Clement MD 01/12/2024 11:00 AM COMMISSARY CLERK Office Visit [facility] [address] [facility] [address], [place] [address] Beny Guillaume MD PhD Late onset Alzheimer's dementia without behavioral disturbance, psychotic disturbance, mood disturbance, or anxiety, unspecified dementia severity (HCC) (Primary Dx); Late onset Alzheimer disease (HCC) 01/11/2024 Telephone [facility] Medicine [address] [phone] Beau Clement MD Referral Request 01/06/2024 Letter (Out) [address] [phone] from Last 3 Months Immunizations Name Administration Dates Next Due COVID-19 mRNA (EyeSee360) 0.3 m L (30 mcg) vaccine (12 years and up) 11/24/2022 Influenza, Quad, Adjuvantate d, Intramuscular 11/24/2022 Influenza, Quadrivalent, Hig h Dose, Preservative Free, Intrr 12/07/2021,11/16/2020,11/23/2019 Influenza, Trivalent, High D ose, Split, Preservative Free, Intramuscular 11/12/2023,11/28/2018,11/30/2017,11/27,12/21/2016 Influenza, Trivalent, Preser vative Free, Intramuscular 12/18/2015 Influenza, Unspecified 11/27/2021(Deferr ed: Patient Refused),11/16/2020,11/28/2018 Moderna SARS-CoV-2 Monovalen t Vaccination (12+ YRS) 05/28/2020,04/17/2020 Pneumococcal Conjugate PCV 13 03/28/2019 Pneumococcal Polysaccharide PPV23 10/01/2020 TD Preservative Free 09/03/2021 Tdap 05/06/2018 ZOSTER LIVE 08/27/2010 ZOSTER Recombinant 11/03/2017,07/09/2017 Surgical History Surgery Date Site/Laterality Comments SECTION 01/06/1975 - 02/04/197512/1977 EYE SURGERY 03/08/2017 - 03/07/2018 CATARACT EXTRACTION 08/09/2017 Right [id number], 19.0D- Dr. Jean Manjarrez CARDIAC ELECTROPHYSIOLOGY MAPPING AND ABLATION 03/08/2019 - 03/07/2020 VEIN SURGERY 12/06/1997 - 01/05/199812/2014 SKIN CANCER EXCISION 03/08/2014 - 03/07/2015 nose CATARACT EXTRACTION 12/02/2021 Left [id number], +18.50D, Dr. Nguyen EYE SURGERY 06/29/2022 Left Yag Cap OS- LMT Medical History Medical History Date Comments Hypertension Dyslipidemia Vitamin D deficiency Osteopenia TIA (transient ischemic attack) memory loss started 3 months ago July 2021. Unsure of TIA occurance Arthritis 10 years Cancer (CMS/HCC) (HCC) skin cancer on nose Cataract one taken out Family History Medical History Relation Name Comments Heart attack Father Lucio Valdovinos Arthritis Mother Elizabeth Aruna Asthma Mother Elizabeth Aruna Heart attack Mother Elizabeth Aruna Diabetes Son Jorge Luis Esquivel Anesthesia problems Neg Hx Glaucoma Neg Hx Macular degeneration Neg Hx Relation Name Status Comments Father Lucio Valdovinos Mother Elizabeth Aruna Son Jorge Luis Esquivel Alive Social History Tobacco Use Types Packs/Day Years Used Date Smoking Tobacco: Never Cigarettes Smokeless Tobacco: Never Alcohol Use Standard Drinks/Week Comments Not Currently 0 (1 standard drink = 0.6 oz pur e alcohol) AUDIT-C Answer Date Recorded Q1: How often do you have a drink containing alcohol? Never 11/16/2023 Q2: How many drinks containi ng alcohol do you have on a typical day when you are drinking? Patient does not drink Q3: How often do you have si x or more drinks on one occasion? Never 11/16/2023 PHQ-2 Answer Date Recorded PHQ-2 Total Score 3 11/16/2023 Comments No Sex and Gender Information Value Date Recorded Sex Assigned at Not on file Legal Sex Female 8:34 AM COMMISSARY CLERK Gender Identity Female 08/22/2019 6:09 AM CDT Sexual Orientation Straight 08/22/2019 6: 09 AM CDT Obstetrics History Para Term AB IAB SAB Ectopic Multiple Livin g Live Births 2 2 2 Date Outcome GA Total Labor Labor/2nd/3rd Weight Sex Type Anes PTL Erma A1 A5 Name Clin Term Term Last Filed Vital Signs Vital Sign Reading Time Taken Comments Blood Pressure 110/74 01/12/2024 10:50 AM COMMISSARY CLERK Pulse 70 01/12/2024 10:50 AM COMMISSARY CLERK Temperature 36.4 ??C (97.6 ??F) 01/12/2024 10:[address] Respiratory Rate 16 11/16/2023 7:04 AM CDT Oxygen Saturation 99% 01/12/2024 10:50 AM COMMISSARY CLERK Inhaled Oxygen Concentration - - Weight 46 kg (101 lb 6.4 oz) 01/12/2024 10:50 AM COMMISSARY CLERK Height 156.2 cm (5' 1.5 ) 11/16/2023 7:04 AM CDT Body Mass Index 18.85 11/16/2023 7:04 AM CDT Plan of Treatment Health Maintenance Due Date Last Done Comments Hepatitis B Screening 1963 Depression Screening 11/15/2024 11/16/2023, 11/16/2023, 11/30/2022, Additional history exists Fall Risk Assessment 11/15/2024 11/16/2023, 11/30/2022, 12/02/2021, Additional history exists Well Visit 65+ 11/15/2024 11/16/2023, 11/07, 11/30/2022, Additional history exists Osteoporosis Screening-Bone Density Scan 01/25/2025 01/25/2023, 12/06/2020, 07/20/2017, Additional history exists DTaP/Tdap/Td Vaccine (3 - Td or Tdap) 09/04/2031 09/03/2021, 05/06/2018 Colon Cancer Screening-CT Colonography Discontinued 06/17/2011 Colon Cancer Screening-Colonoscopy Discontinued 06/17/2011 Colon Cancer Screening-Sigmoidoscopy Discontinued 06/17/2011 Hepatitis C Screening Completed 06/24/2015 Zoster Vaccine Completed 11/03/2017, 0506/2017, 08/27/2010 Colon Cancer Screening-DNA Stool Discontinued 09/13/19, 06/17/2011 Colon Cancer Screening-FIT Discontinued 09/12/2020, Colon Cancer Screening-FOBT Discontinued 09/12/2020, 0 06/17/2011 Colorectal Cancer Screening Discontinued Pneumococcal vaccine 65+ Completed 10/01/2020, 03/09 Covid-19 Vaccine Completed 11/12/2023, , 12/07/2021, Additional history exists Influenza Vaccine Completed 11/12/2023, , 12/07/2021, Additional history exists Breast Cancer Screening-Mammogram Discontinued 02/01/2024, 12/06/2020, 11/23/2018, Additional history exists Medical Devices Implanted Type Area Hydroponics Worker Device Identifier Shelf Expiration Date Model / Serial / Lot [employer] Lens Iol Posterior Biconvex Optic Single Piece Envista 6.0x12.5 +18.5d Hydrophobic Acrylic [id number] - [id number] - [id number] Implanted:Qty: 1 on 12/02/2021 by Addy Nguyen MD at [facility] Left: Eye [employer] [id number] 10/06/2023 [id number] / [id number] / Procedures Procedure Name Priority Date/Time Associated Diagnosis Comments SCAN - RADIOLOGY/IMAGING 03/11/2024 SCREENING MAMMOGRAM BILATERAL W HUSSAIN Schedule Routine, Read Routine (OP Routine) 02/01/2024 1:53 PM COMMISSARY CLERK Screening mammogram, encounter for DEXA AXIAL SKELETON BONE DENSITY 1 OR MORE SITES Schedule Routine, Read Routine (OP Routine) 01/25/2023 7:09 AM COMMISSARY CLERK Osteopenia of multiple sites STOOL DNA ? COLOGUARD Routine 09/12/2020 8:15 AM CDT Colon cancer screening HEPATITIS C ANTIBODY Routine 06/24/2015 9:37 AM CDT COLONOSCOPY Routine 06/17/2011 from Last 3 Months or Most Recently Relevant to Health Maintenance Results * SCAN - RADIOLOGY/IMAGING (03/11/2024) Anatomical Region Laterality Modality Other Beny Duff DO Final Result * Screening Mammogram Bilateral W Hussain (02/01/2024 1:53 PM COMMISSARY CLERK) Anatomical Region Laterality Modality Breast Bilateral Mammography Impressions 02/01/2024 4:45 PM COMMISSARY CLERK BI-RADS?? ATLAS category (overall): 1 - Negative There is no mammographic evidence of malignancy. A 1 year screening mammogram is recommended. The patient has been or will be contacted. We recommend annual screening mammography for women at average risk of breast cancer beginning at age 40, based on guidelines of the [employer] [employer] (ACR Practice Parameter for the Performance of Screening and Diagnostic Mammography) and [employer]. For women with and elevated risk of breast cancer, please refer to the ACR Practice Parameter for specific screening recommendations. The patient will be entered into a reminder system with a target due date of 1 year for her next screening exam. Narrative 02/01/2024 4:45 PM COMMISSARY CLERK Screening Mammogram Bilateral W Hussain: 02/01/24 The study was acquired using full field digital technology and interpreted from soft copy. 2D digital mammographic views, as well as 3D digital tomosynthesis were performed in the CC and MLO projections. This study was resulted using Computer-Aided Detection (CAD). CLINICAL: ??Screening mammogram, encounter for. ??Medical history includes arthritis, hypertension, cancer, and developmental delay. ??No known family history of breast cancer. COMPARISONS: 12/06/2020 Screening Mammogram Bilateral W Hussain 11/23/2018 Screening Mammogram 2D Bilateral 03/18/2016 Screening Mammogram Bilateral W Hussain BREAST TISSUE: There are scattered areas of fibroglandular density. FINDINGS: No suspicious masses, suspicious calcifications, or other suspicious findings are seen within either breast. ??There has been no suspicious change. us Self Screening Mammogram IMG MAMMO PROCEDURES Fi nal Result * Dexa Axial Skeleton Bone Density 1 or 2 Site (01/25/2023 7:09 AM COMMISSARY CLERK) Anatomical Region Laterality Modality Body N/A Mammography 01/25/2023 9:51 AM COMMISSARY CLERK Narrative 01/25/2023 9:52 AM COMMISSARY CLERK EXAM DESCRIPTION: DEXA AXIAL SKELETON BONE DENSITY 1 OR MORE SITES REASON FOR STUDY: 77 y/o ?? year old ??F ??with given history of: ??Postmenopausal status. ??Patient takes calcium. ? Hydroponics Worker/Model: Profilepasser A (S/N [id number]) CLINICAL INFORMATION: Current height: ??62 ??inches ? Maximum height: ??63 ??inches ? Weight: ??96 ??pounds Risk factors: ??None COMPARISON: 12/06/2020 FINDINGS: AP LUMBAR SPINE L1-L4: Total BMD is 1.154 g/cm2 T-score is 1.0 This is a 0.1% increase in comparison to prior exam which is not statistically significant. LEFT HIP: Total BMD is 0.652 g/cm2 T-score is -2.4 This is a 4% decrease in comparison to prior exam which is not statistically significant. Femoral neck BMD is 0.558 g/cm2 T-score is -2.6 ?? FRAX: FRAX not reported due to T-scores of hip, femoral neck and/or spine being at or below -2.5 (Osteoporosis). IMPRESSION: Osteoporosis. REFERENCE: Bone mineral density: ? Normal (T-score above or = -1.0) ? Low bone mass ??(T-score between -1.0 and -2.5) replaces the previously used term osteopenia ? Osteoporosis (T-score = or below -2.5) Medical evaluation for secondary causes of low bone mineral density may be appropriate. FRAX is a World Health Organization validated fracture risk assessment tool that calculates a person's 10 year probability of a major osteoporosis related fracture and hip fracture. ??According to the National Osteoporosis Foundation guidelines, postmenopausal women and men age 50 or older with low bone mass and a 10 year probability of a major osteoporosis related fracture = or greater than 20% or a 10 year probability of a hip fracture = or greater than 3% should be considered for treatment. For further information, including treatment recommendations, please refer to the 2019 ISCD Official Positions (http://www.iscd.org) and the NOF's Clinician's Guide to Prevention and Treatment of Osteoporosis (http://www.nof.org/professionals/clinical-guidelines) THIS IS AN ELECTRONICALLY VERIFIED FINAL REPORT 01/25/2023 9:52 AM - Electronically signed by ??Valencia Ritter M.D. TW: ISIS D: ??01/25/2023 9:52 AM T: ??01/25/2023 9:52 AM Report ID: [id number] Reading Location: ??[id number] Procedure Note Valencia Ritter MD - 01/25/2023 EXAM DESCRIPTION: DEXA AXIAL SKELETON BONE DENSITY 1 OR MORE SITES REASON FOR STUDY: 77 y/o year old F with given history of:Postmenopausal status. Patient takes calcium. Hydroponics Worker/Model: Profilepasser A (S/N [id number]) CLINICAL INFORMATION: Current height: 62 inches Maximum height: 63 inches Weight: 96 pounds Risk factors: None COMPARISON: 12/06/2020 FINDINGS: AP LUMBAR SPINE L1-L4: Total BMD is 1.154 g/cm2 T-score is 1.0 This is a 0.1% increase in comparison to prior exam which is notstatistically significant. LEFT HIP: Total BMD is 0.652 g/cm2 T-score is -2.4 This is a 4% decrease in comparison to prior exam which is notstatistically significant. Femoral neck BMD is 0.558 g/cm2 T-score is -2.6 FRAX: FRAX not reported due to T-scores of hip, femoral neck and/or spine beingat or below -2.5 (Osteoporosis). IMPRESSION: Osteoporosis. REFERENCE: Bone mineral density: Normal (T-score above or = -1.0) Low bone mass (T-score between -1.0 and -2.5) replaces thepreviously used term osteopenia Osteoporosis (T-score = or below -2.5) Medical evaluation for secondary causes of low bone mineral density may be appropriate. FRAX is a World Health Organization validated fracture risk assessmenttool that calculates a person's 10 year probability of a major osteoporosisrelated fracture and hip fracture. According to the National OsteoporosisFoundation guidelines, postmenopausal women and men age 50 or older with low bonemass and a 10 year probability of a major osteoporosis related fracture = or greater than 20% or a 10 year probability of a hip fracture = or greaterthan 3% should be considered for treatment. For further information, including treatment recommendations, please referto the 2019 ISCD Official Positions (http://www.iscd.org) and the NOF's Clinician's Guide to Prevention and Treatment of Osteoporosis (http://www.nof.org/professionals/clinical-guidelines) THIS IS AN ELECTRONICALLY VERIFIED FINAL REPORT 01/25/2023 9:52 AM - Electronically signed by Valencia Ritter M.D. TW: ISIS Report ID: [id number] Reading Location: [place] [address] Beau Clement MD Freddy DXA PROCEDURES F inal Result * Stool DNA - Cologuard (09/12/2020 8:15 AM CDT) Stool DNA - Cologuard Negative Negative [employer] (CLIA #:[id number]) Comment: NEGATIVE TEST RESULT. A negative Cologuard result indicates a low likelihood that a colorectal cancer (CRC) or advanced adenoma (adenomatous polyps with more advanced pre-malignant features) ??is present. The chance that a person with a negative Cologuard test has a colorectal cancer is less than 1 in 1500 (negative predictive value >99.9%) or has an ??advanced adenoma is less than ??5.3% (negative predictive value 94.7%). These data are based on a prospective cross-sectional study of 10,000 individuals at average risk for colorectal cancer who were screened with both Cologuard and colonoscopy. (Manuel Menendez al, N Engl J Med 2014;370(14):1286- 1297) The normal value (reference range) for this assay is negative. COLOGUARD RE-SCREENING RECOMMENDATION: Periodic colorectal cancer screening is an important part of preventive healthcare for asymptomatic individuals at average risk for colorectal cancer. ??Following a negative Cologuard result, the [place] [employer] and U.S. Multi-Society Task Force screening guidelines recommend a Cologuard re-screening interval of 3 years. References: [place] [employer] Guideline for Colorectal Cancer Screening: https://www.cancer.org/cancer/qyrai-ospued-imfekk/jjgcxjzni-nknzaevzc-lotrcvn/ac s-rec ommendations.html.; John DK, Ezequiel MARTINEZ, Arlette RodriguezK, Colorectal Cancer Screening: Recommendations for Physicians and Patients from the U.S. Multi-Society Task Force on Colorectal Cancer Screening , Am J Gastroenterology 2017; 112:2926-4131. TEST DESCRIPTION: Composite algorithmic analysis of stool DNA-biomarkers with hemoglobin immunoassay. ?? Quantitative values of individual biomarkers are not reportable and are not associated with individual biomarker result reference ranges. Cologuard is intended for colorectal cancer screening of adults of either sex, 45 years or older, who are at average-risk for colorectal cancer (CRC). Cologuard has been approved for use by the [place]. FDA. The performance of Cologuard was established in a cross sectional study of average-risk adults aged 50-84. Cologuard performance in patients ages 45 to 49 years was estimated by sub-group analysis of near-age groups. Colonoscopies performed for a positive result may find as the most clinically significant lesion: colorectal cancer [4.0%], advanced adenoma (including sessile serrated polyps greater than or equal to 1cm diameter) [20%] or non- advanced adenoma [31%]; or no colorectal neoplasia [45%]. These estimates are derived from a prospective cross-sectional screening study of 10,000 individuals at average risk for colorectal cancer who were screened with both Cologuard and colonoscopy. (Manuel Shankar et al, N Engl J Med 2014;370(14):7179-7050.) Cologuard may produce a false negative or false positive result (no colorectal cancer or precancerous polyp present at colonoscopy follow up). A negative Cologuard test result does not guarantee the absence of CRC or advanced adenoma (pre-cancer). The current Cologuard screening interval is every 3 years. ([place] [employer] and U.S. Multi-Society Task Force). Cologuard performance data in a 10,000 patient pivotal study using colonoscopy as the reference method can be accessed at the following location: www.[employer]/results. Additional description of the Cologuard test process, warnings and precautions can be found at www.[employer].com. Stool 09/12/2020 8:15 AM CDT 09/13/2020 2:57 PM CDT Beau Clement MD LAB BODY FLUIDS AND STOOLS ORDERABLES Final Result [facility] (CLIA #:[id number]) [place] [place] [address] * Hepatitis C antibody (06/24/2015 9:37 AM CDT) Hep C Ab NONREACT NONREACTIVE Comment: Siemens [employer]aur[employer] using PEPE (chemiluminescent immunoassay) technology. NONREACTIVE: Antibodies to Hepatitis C not detected. This does not exclude early acute Hepatitis C infection, possibility of exposure to Hepatitis C, antibodies below detection limit, or to lack of antibody reactivity to the antigen used in this assay. EQUIVOCAL: Antibodies to Hepatitis C may or may not be present. ??Sample to be confirmed by real-time PCR method. REACTIVE: Antibodies to Hepatitis C detected. 06/24/2015 9:37 AM CDT 06/24/2015 9:37 AM CDT Narrative [facility] HISTORICAL RESULTS - 06/24/2015 2:26 PM CDT PT FAST 12HR Katie Brunner MD LAB MICROBIOLOGY - GEN ERAL ORDERABLES Final Result [facility] HISTORICAL RESULTS * Colonoscopy (06/17/2011) Anatomical Region Laterality Modality Other Historical Provider ENDOSCOPY PROCEDURES Blanca l Result from Last 3 Months or Most Recently Relevant to Health Maintenance Insurance [facility] [facility] [employer] [facility] Advance Directives For more information, please contact: [phone] Documents on File Type Date Recorded Patient Physician Credentialing Specialist Expl anation ADVANCE DIRECTIVE 09/24/2023 3:22 PM POA - Medical Power of Medical Front Desk Coordinator 04/02/2023 1:15 PM ADVANCE DIRECTIVE 01/22/2022 8:22 AM Lor r of Medical Front Desk Coordinator-Medical Care Teams Classification Officer Relationship Specialty Start Date End Date Beau Clement MD [address] [place] [address] PCP - Essence Attributed PCP 03/08/17 Beau Clement MD [address] [place] [address] PCP - General Family Medicine 07/13/18
--- OUTSIDE RECORDS SUMMARY | 2024-03-18 22:40 | XMS_ITS | Encounter Summary ---
Author Organization [facility] Healthcare Address [address] [place] [address] Care Team Providers Care Silk Screen Processor Name Role Phone Beau Clement MD Unavailable +- [phone] Beau Clement MD Primary Care Provid er Encounter Details Date Type Department Care Team (Late st Contact Info) Description 11/12/2023 7:35 AM CDT Lab [facility] [address] [place] [id number] Encounter for Medicare annual wellness exam; Essential (primary) hypertension Social History Tobacco Use Types Packs/Day Years Used Date Smoking Tobacco: Never Cigarettes Smokeless Tobacco: Never Alcohol Use Standard Drinks/Week Comments Not Currently 0 (1 standard drink = 0.6 oz pur e alcohol) AUDIT-C Answer Date Recorded Q1: How often do you have a drink containing alc ohol? Monthly or less 12/02/2021 Q2: How many drinks containi ng alcohol do you have on a typical day when you are drinking? 1 or 2 12/02/2021 Q3: How often do you have si x or more drinks on one occasion? 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 Current interpretive data was last revised 2018. Testing performed by: [address] [address] Creatinine Ur 32.6 mg/dL [facility] Comment: Interpretive Data No reference range established. Current interpretive data was last revised 2018. Testing performed by: [address] [address] Albumin Creatinine Ratio, Ur <37(H) 1 - 29 mg/g [facility] Comment:Testing performed by : [address] [address] Urine 11/12/2023 12:4 4 PM CDT 11/12/2023 2:21 PM CDT Beau Clement MD LAB URINE ORDERABLES Final Result Performing Organization Address City/State/[facility] Co de Phone Number [facility] [address] [facility] [place] [address] documented in this encounter Visit Diagnoses Diagnosis Encounter for Medicare annual wellness exam Essential (primary) hypertension Unspecified essential hypertension documented in this encounter Care Teams Silk Screen Processor Relationship Specialty Start Date End Date Beau Clement MD [address] [place] [address] PCP - Essence Attributed PCP 03/08/17 Beau Clement MD [address] [place] [address] PCP - General Family Medicine 07/13/18 documented as of this encounter
--- OUTSIDE RECORDS SUMMARY | 2024-03-18 22:40 | XMS_ITS | Encounter Summary ---
Author Organization [facility] Healthcare Address [address] [place] [address] Care Team Providers Care Physician Compensation Analyst Name Role Phone Beau Clement MD Unavailable + [phone] Beau Clement MD Primary Care Provid er Reason for Visit * Reason Comments Medicare Annual Wellness Visit Kar GARDNER Encounter Details Date Type Department Care Team (Latest Contact Info) Description 11/16/2023 7:30 AM CDT Office Visit [facility] Family Medicine [address] [phone] Beau Clement MD [address] [id number] Encounter for Medicare annual wellness exam (Primary Dx); Late onset Alzheimer's dementia without behavioral disturbance (HCC); Vascular dementia without behavioral disturbance (HCC); Cerebral microvascular disease; Essential (primary) hypertension; Dyslipidemia; Generalized anxiety disorder; Overactive bladder; Chronic right-sided low back pain with right-sided sciatica; Lumbar foraminal stenosis; Age-related osteoporosis without current pathological fracture; Vitamin D deficiency; Asymptomatic varicose veins of both lower extremities; Depression screening; At risk for falls Social History Tobacco Use Types Packs/Day Years [...] on file Legal Sex 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 Gender Identity Female 08/22/2019 6:09 AM CDT Sexual Orientation Straight 08/22/2019 6: 09 AM CDT documented as of this encounter Last Filed Vital Signs Vital Sign Reading Time Taken Comments Blood Pressure 110/62 11/16/2023 7:04 AM CDT Pulse 72 11/16/2023 7:04 AM CDT Temperature 36.4 ??C (97.6 ??F) 11/16/2023 7:04 AM CD T Respiratory Rate 16 11/16/2023 7:04 AM CDT Oxygen Saturation 98% 11/16/2023 7:04 AM CDT Inhaled Oxygen Concentration - - Weight 45.4 kg (100 lb) 11/16/2023 7:04 AM CDT Height 156.2 cm (5' 1.5 ) 11/16/2023 7:04 AM CDT Body Mass Index 18.59 11/16/2023 7:04 AM CDT documented in this encounter Progress Notes * Beau Clement MD - 11/16/2023 7:30 AM CDT Images from the original note were not included. MEDICARE ANNUAL WELLNESS VISIT Dottie Bryant Chief complaint: Medicare Annual Wellness Visit Subsequent (EE) HPI: Mrs. Bryant is here for her annual physical. She has no complaints today. She reports that her appetite is good. She is sleeping well. She denies any bowel problems. She reports nocturia once a night, but denies any incontinence She continues to have issues with memory and sees a specialist at [facility]. Her exercise remains minimal. The patient's past medical history, surgical history, family history, and social history were reviewed today. Past Medical History: Diagnosis Date Arthritis 10 years Cancer (CMS/HCC) (HCC) skin cancer on nose Cataract one taken out Dyslipidemia Hypertension Osteopenia TIA (transient ischemic attack) memory loss started 3 months ago July 2021. Unsure of TIA occurance Vitamin D deficiency Past Surgical History: Procedure Laterality Date CARDIAC ELECTROPHYSIOLOGY MAPPING AND ABLATION 2019 CATARACT EXTRACTION Right 08/09/2017 [id number], 19.0D- Dr. Jean Manjarrez CATARACT EXTRACTION Left 12/02/2021 [id number], +18.50D, Dr. Nguyen SECTION 01/1975 EYE SURGERY 2018 EYE SURGERY Left 06/29/2022 Yag Cap OS- LMT SKIN CANCER EXCISION 2014 nose VEIN SURGERY 12/1997 Family History Problem Relation Age of Onset Heart attack Mother Arthritis Mother Asthma Mother Heart attack Father Diabetes Son Anesthesia problems Neg Hx Glaucoma Neg Hx Macular degeneration Neg Hx Social History Tobacco Use Smoking status: Never Smokeless tobacco: Never Substance and Sexual Activity Drug use: Never Sexual activity: Not Currently Partners: Male Comment: Age 75 Alcohol Use: Not At Risk (11/16/2023) AUDIT-C Frequency of Alcohol Consumption: Never Average Number of Drinks: Patient does not drink Frequency of Binge Drinking: Never Allergies: Allergies Allergen Reactions Celecoxib Rash Current Medications: Outpatient Encounter Medications as of 11/16/2023 Medication Sig Dispense Refill aspirin 81 mg enteric coated tablet Take 1 tablet (81 mg total) by mouth every morning atorvastatin (LIPITOR) 40 mg tablet TAKE 1 TABLET BY MOUTH EVERY DAY 90 tablet 3 calcium carbonate/vitamin D3 (CALCIUM 500 + D ORAL) Take 1 tablet by mouth every morning donepeziL (ARICEPT) 10 mg tablet TAKE 1 TABLET BY MOUTH EVERY DAY AT NIGHT 90 tablet 3 gabapentin (NEURONTIN) 100 mg capsule TAKE 1 CAPSULE BY MOUTH TWICE A DAY 90 capsule 3 ibandronate (BONIVA) 150 mg tablet TAKE 1 TABLET EVERY 30 DAYS TAKE IN AM WITH GLASS OF WATER PRIORTO FOOD, DON'T LIE DOWN X30 MINUTES 3 tablet 1 memantine (NAMENDA) 10 mg tablet Take 1 tablet (10 mg total) by mouth 2 (two) times a day 60 [id number] metoprolol XL (TOPROL-XL) 25 mg extended release tablet TAKE 1 TABLET BY MOUTH EVERY DAY 90 tablet 2 [DISCONTINUED] cephalexin (KEFLEX) 500 mg capsule Take 1 capsule (500 mg total) by mouth 4 (four) times a day [DISCONTINUED] donepeziL (ARICEPT) 10 mg tablet TAKE 1 TABLET BY MOUTH EVERY DAY AT NIGHT 90 tablet3 No facility-administered encounter medications on file as of 11/16/2023. Review of Systems Constitutional: Negative for activity change, appetite change, chills, fatigue and fever. HENT: Negative for congestion, ear pain, sinus pressure, sinus pain, sore throat and trouble swallowing. Eyes: Negative for discharge and visual disturbance. Respiratory: Negative for cough, shortness of breath and wheezing. Cardiovascular: Negative for chest pain and palpitations. Gastrointestinal: Negative for abdominal distention, abdominal pain, constipation, diarrhea, nauseaand vomiting. Endocrine: Negative for cold intolerance, heat intolerance, polydipsia and polyuria. Genitourinary: Negative for dysuria, frequency, hematuria and urgency. See HPI Musculoskeletal: Negative for arthralgias, joint swelling, myalgias and neck stiffness. Skin: Negative for rash. Neurological: Negative for dizziness, weakness, light-headedness and headaches. Psychiatric/Behavioral: Positive for confusion (and memory issues). Negative for decreased concentration and sleep disturbance. The patient is not nervous/anxious. Vitals: Vitals: 11/16/23 0704 BP: 110/62 Pulse: 72 Resp: 16 Temp: 36.4 ??C (97.6 ??F) SpO2: 98% Weight: 45.4 kg (100 lb) Height: 156.2 cm (5' 1.5 ) Physical Exam Vitals and nursing note reviewed. Constitutional: General: She is not in acute distress. Appearance: Normal appearance. She is well-developed. She is not ill-appearing or toxic-appearing. HENT: Head: Normocephalic and atraumatic. Jaw: There is normal jaw occlusion. Right Ear: Hearing, tympanic membrane, ear canal and external ear normal. Tympanic membrane is not erythematous, retracted or bulging. Tympanic membrane has normal mobility. Left Ear: Hearing, tympanic membrane, ear canal and external ear normal. Tympanic membrane is not retracted or bulging. Tympanic membrane has normal mobility. Nose: Nose normal. No rhinorrhea. Mouth/Throat: Pharynx: Uvula midline. No posterior oropharyngeal erythema. Eyes: General: Lids are normal. Vision grossly intact. Gaze aligned appropriately. Extraocular Movements: Extraocular movements intact. Conjunctiva/sclera: Conjunctivae normal. Pupils: Pupils are equal, round, and reactive to light. Neck: Thyroid: No thyroid mass or thyromegaly. Vascular: No carotid bruit or JVD. Trachea: Trachea and phonation normal. Cardiovascular: Rate and Rhythm: Normal rate and regular rhythm. Pulses: Normal pulses. Heart sounds: Normal heart sounds. No murmur heard. No friction rub. No gallop. Comments: Varicosities, bilateral lower legs Pulmonary: Effort: Pulmonary effort is normal. No respiratory distress. Breath sounds: Normal breath sounds and air entry. No wheezing. Abdominal: General: Bowel sounds are normal. There is no distension. Palpations: Abdomen is soft. There is no mass. Tenderness: There is no abdominal tenderness. Musculoskeletal: General: No deformity. Normal range of motion. Cervical back: Full passive range of motion without pain, normal range of motion and neck supple. Right lower leg: No edema. Left lower leg: No edema. Lymphadenopathy: Cervical: No cervical adenopathy. Skin: General: Skin is warm and dry. Capillary Refill: Capillary refill takes less than 2 seconds. Findings: No rash. Neurological: General: No focal deficit present. Mental Status: She is alert and oriented to person, place, and time. Mental status is at baseline. Cranial Nerves: No cranial nerve deficit. Sensory: Sensation is intact. Motor: Motor function is intact. No abnormal muscle tone. Coordination: Coordination is intact. Coordination normal. Gait: Gait is intact. Gait normal. Deep Tendon Reflexes: Reflexes are normal and symmetric. Reflexes normal. Psychiatric: Attention and Perception: Attention and perception normal. Mood and Affect: Mood and affect normal. Speech: Speech normal. Behavior: Behavior normal. Behavior is cooperative. Thought Content: Thought content normal. Cognition and Memory: Memory is impaired. She exhibits impaired recent memory. Judgment: Judgment normal. Depression Screen: PHQ Screening Over the last 2 weeks, how often have you been bothered by any of the following problems? Little Interest or Pleasure in Doing Things: Not at all Feeling Down, Depressed, or Hopeless: Not at all PHQ-2 Total Score (If total score is 3 or more points, staff should administer the PHQ-9): 0 Over the past 2 weeks, how often have you been bothered by any of the following problems? Little Interest or Pleasure in Doing Things: Not at all Feeling Down, Depressed, or Hopeless: Not at all PHQ-2 Total Score (If total score is 3 or more points, staff should administer the PHQ-9): 0 Anxiety screen: Audio/Visual screen: (only for Welcome to Medicare visit) Normal Audio Screen: Is the patient having any problems with hearing? No Diet: good Physical Activities: 2-3 times a week Functional Capacity Patient is able to perform the following: ambulation, bathing and hygiene, feeding, continence, grooming, toileting, and dressing Up and Go Test: Patient was unsteady or time test was longer than 30 seconds? No STEADI Fall Risk Screening: Incontinence: Are you experiencing or have concern about urine leakage? No Detection of Cognitive Impairment: Detect cognitive impairment based on direct observation, discussion with patient or family, or review of medical records? Yes Advanced Directive Durable Power of Construction Plant Operator: Yes Living Will: Yes Care Team Providers: Patient Care Team: Beau Clement MD as PCP - General (Family Medicine) Beau Clement MD as PCP - Essence Attributed PCP Primary Pharmacy/DME suppliers: [facility] [place] [address] [address] [facility] [address] [facility] [address] Counseling and Referral of Preventative Services: Please see patient instructions section for recommendations for appropriate screening and monitoring guidelines. Health Maintenance: Health Maintenance Topics with due status: Overdue Topic Date Due Hepatitis B Screening Never done Health Maintenance Topics with due status: Due Soon Topic Date Due Fall Risk Assessment 12/01/2023 Well Visit 65+ 12/01/2023 Health Maintenance Topics with due status: Not Due Topic Last Completion Date DTaP/Tdap/Td Vaccine 09/03/2021 Osteoporosis Screening-Bone Density Scan 01/25/2023 Depression Screening 11/16/2023 Health Maintenance Topics with due status: Completed Topic Last Completion Date Hepatitis C Screening 06/24/2015 Zoster Vaccine 11/03/2017 Pneumococcal vaccine 65+ 10/01/2020 Covid-19 Vaccine 11/12/2023 Influenza Vaccine 11/12/2023 Health Maintenance Topics with due status: Discontinued Topic Date Due Colorectal Cancer Screening Discontinued Breast Cancer Screening-Mammogram Discontinued Patient here for annual Medicare wellness visit and for review of complete medical problem list. All the elements of the plan were completed as outlined by CMS. A copy of the prevention plan was given to the patient. I reviewed Medicare Wellness Questionnaire (other physicians involved in care, depression screen, advanced directives), cognitive/memory, and functional assessment. Forms scanned into chart/HRA form reviewed in chart. I reviewed and updated the complete problem list, medication list, surgical history, social history, family history, and immunization records with the patient. I provided preventive counseling and early detection interventions to the patient through health maintenance update and summary of today's office visit. Assessment and Plan: Diagnoses and all orders for this visit: Encounter for Medicare annual wellness exam (Primary) Late onset Alzheimer's dementia without behavioral disturbance (HCC) Vascular dementia without behavioral disturbance (HCC) Cerebral microvascular disease Essential (primary) hypertension Dyslipidemia Generalized anxiety disorder Overactive bladder Chronic right-sided low back pain with right-sided sciatica Lumbar foraminal stenosis Age-related osteoporosis without current pathological fracture Vitamin D deficiency Asymptomatic varicose veins of both lower extremities Depression screening At risk for falls Plan: 1. Annual Exam: Continue healthy diet, Encouraged more exercise, as tolerated, with an ultimate goal of 150 minutes/week. Labs reviewed with the patient and her . Good health and prevention strategies discussed. 2. Alzheimer's/Vascular Dementia/Cerebral microvascular disease: The patient looks to have both Alzheimer's and vascular dementia. Continues to slowly progress. Sees Neurology, Dr Guillaume.. Keep blood pressure and lipids controlled. Continue donepezil and memantine. Continue to monitor. 3. Hypertension: Remains well controlled on low dose metoprolol XL Continue low sodium diet. Healthy weight discussed. Encouraged more exercise, as tolerated and safe. 4. Dyslipidemia: Remains well controlled on atorvastatin. Continue healthy diet. Maintain healthy weight Encouraged more exercise as tolerated and safe. Labs reviewed with the patient. 5. Stage II renal disease: A little worse this year. Her GFR various from the low 60s to the mid 80s from month to month, year to year. Keep blood pressure controlled. Avoid NSAIDs. Continue to monitor. 6. Microalbuminuria: Mild. Keep blood pressure is controlled. Continue to monitor. 7. Anxiety: She continues to do well off medication. Continue to monitor. 8. Overactive bladder: Stable. She continues to manage it without medication. We will continue to monitor. 9. Chronic right-sided low back pain with known lumbar foraminal stenosis: Continues to do well. Continue gabapentin for chronic pain. Continue OTC analgesics as needed 10. Osteoporosis: Slightly worse on most recent bone density test. Continue calcium vitamin-D supplementation. Continue Boniva. Encouraged more exercise, as tolerated and safe 11. Vitamin-D deficiency: Continue supplementation. 12. Varicose veins: Stable Asymptomatic. Care instructions discussed. 13. Depression screening: PHQ 2 score of 3, PHQ-9 score of 11. No medication or other treatment desired. Will continue to monitor. 14. Fall risk: Patient is at increased risk of falling, and has fallen this year Fall risk mitigation and reduction were discussed There was a prior history protein-calorie malnutrition, that was after a hospitalization and has been resolved and her protein are back to normal, as his appetite and diet. Similarly, she no longer carries a diagnosis immunodeficiency, this was related to a previous hospitalization. documented in this encounter Plan of Treatment Not on file documented as of this encounter Visit Diagnoses Diagnosis Encounter for Medicare annual wellness exam- Primary Late onset Alzheimer's dementia without behavioral disturbance (HCC) Vascular dementia without behavioral disturbance (HCC) Cerebral microvascular disease Unspecified cerebrovascular disease Essential (primary) hypertension Unspecified essential hypertension Dyslipidemia Other and unspecified hyperlipidemia Generalized anxiety disorder Overactive bladder Hypertonicity of bladder Chronic right-sided low back pain with right-sided sciatica Lumbar foraminal stenosis Age-related osteoporosis without current pathological fracture Vitamin D deficiency Asymptomatic varicose veins of both lower extremities Depression screening At risk for falls Personal history of fall documented in this encounter Discontinued Medications Medication Sig Discontinue Reason Start Date End Da te cephalexin (KEFLEX) 500 mg capsule Take 1 capsule (500 mg total) by mouth 4 (four) times a day Therapy completed 08/09/2023 11/16/2023 documented as of this encounter Care Teams Physician Compensation Analyst Relationship Specialty Start Date End Date Beau Clement MD [address] [place], [place] [address] PCP - Essence Attributed PCP 03/08/17 Beau Clement MD [address] [place] [address] PCP - General Family Medicine 07/13/18 documented as of this encounter
--- OUTSIDE RECORDS SUMMARY | 2024-03-18 22:40 | XMS_ITS | Encounter Summary ---
Author Organization [facility] Healthcare Address [address] [place] [address] Care Team Providers Care Filer Helper Name Role Phone Beau Clement MD Unavailable +- [phone] Beau Clement MD Primary Care Provid er Reason for Referral * Diagnostic Imaging (Routine) - Closed Specialty Diagnoses / Procedures Referred By Dede t Referred To Contact Diagnoses Osteopenia of multiple sites Procedures Dexa Axial Skeleton Bone Density 1 or 2 Site Beau Clement MD [address] [place] [address] Phone: tel: fax: [address] [phone] Referral ID Status Reason Start Date Expiration Date Visits Re quested Visits Authorized [id number] Closed 11/30/2022 12/30/2023 1 1 OR NET C DEVELOPER Reason for Visit * Diagnostic Imaging (Routine) - Closed Specialty Diagnoses / Procedures Referred By Contemre t Referred To Contact Diagnoses Osteopenia of multiple sites Procedures Dexa Axial Skeleton Bone Density 1 or 2 Site Beau Clement MD [address] [place] [address] Phone: tel: fax: [address] [phone] Referral ID Status Reason Start Date Expiration Date Visits Re quested Visits Authorized [id number] Closed 11/30/2022 12/30/2023 1 1 Encounter Details Date Type Department Care Team (Latest Contact Info) Description 01/25/2023 6:55 AM SENIOR NET C DEVELOPER - 01/25/2023 11:59 PM SENIOR NET C DEVELOPER Hospital Encounter [facility] Medical Office Bldg 1 Breast [facility] [address] Osteopenia of multiple sites Discharge Disposition: Discharge to home or self care Social History Tobacco Use Types Packs/Day Years [...] file Legal Sex Female 8:34 AM SENIOR NET C DEVELOPER Gender Identity Female 08/22/2019 6:09 AM CDT Sexual Orientation Straight 08/22/2019 6: 09 AM CDT documented as of this encounter Medications at Time of Discharge aspirin 81 mg enteric coated tabletIndication s:heart health Take 1 tablet (81 mg total) by mouth every morning calcium carbonate/vitami n D3 (CALCIUM 500 + D ORAL)Indications :supplement Take 1 tablet by mouth every morning atorvastatin (LIPITOR) 40 mg tablet TAKE 1 TABLET BY MOUTH EVERY DAY 90 tablet 3 10/29/2022 4 donepeziL (ARICEPT) 10 mg tablet TAKE 1 TABLET BY MOUTH EVERY DAY AT NIGHT 90 tablet 3 12/28/2022 4 gabapentin (NEURONTIN) 100 mg capsule TAKE 1 CAPSULE BY MOUTH TWICE A DAY 90 capsule 3 11/24/2022 4 ibandronate (BONIVA) 150 mg tabletIndication s:Osteopenia of both hips TAKE 1 TABLET EVERY 30 DAYS TAKE IN AM WITH GLASS OF WATER PRIOR TO FOOD, DON'T LIE DOWN X30 MINUTES 3 tablet 1 12/19/2022 4 memantine (NAMENDA TITRATION PACK) tablet pack 5 mg/day for =1 week; 5 mg twice daily for =1 week; 15 mg/day given in 5 mg and 10 mg doses for =1 week; then 10 mg twice daily 49 tablet 01/13/2023 4 memantine (NAMENDA) 10 mg tabletIndication s:Moderate to Severe Alzheimer's Type Dementia Take 1 tablet (10 mg total) by mouth 2 (two) times a day 60 tablet 11 01/13/2023 4 metoprolol XL (TOPROL-XL) 25 mg extended release tablet TAKE 1 TABLET BY MOUTH EVERY DAY 90 tablet 2 11/24/2022 4 documented as of this encounter Discharge Disposition Disposition Code Departure Means Destination Discharge to home or self care documented in this encounter Plan of Treatment Not on file documented as of this encounter Procedures Procedure Name Priority Date/Time Associated Diagnosis Comments DEXA AXIAL SKELETON BONE DENSITY 1 OR MORE SITES Schedule Routine, Read Routine (OP Routine) 01/25/2023 7:09 AM SENIOR NET C DEVELOPER Osteopenia of multiple sites documented in this encounter Results * Dexa Axial Skeleton Bone Density 1 or 2 Site (01/25/2023 7:09 AM SENIOR NET C DEVELOPER) Anatomical Region Laterality Modality Body N/A Mammography 01/25/2023 9:51 AM SENIOR NET C DEVELOPER Narrative 01/25/2023 9:52 AM SENIOR NET C DEVELOPER EXAM DESCRIPTION: DEXA AXIAL SKELETON BONE DENSITY 1 OR MORE SITES REASON FOR STUDY: 77 y/o ?? year old ??F ??with given history of: ??Postmenopausal status. ??Patient takes calcium. ? Analysis Analyst/Model: Warby Parker A ([id number]/N [id number]) CLINICAL INFORMATION: Current height: ??62 ??inches ? [...] AM T: ??01/25/2023 9:52 AM Report ID: [id number] Reading Location: ??[id number] Procedure Note Valencia Ritter MD - 01/25/2023 EXAM DESCRIPTION: DEXA AXIAL SKELETON BONE DENSITY 1 OR MORE SITES REASON FOR STUDY: 77 y/o year old F with given history of:Postmenopausal status. Patient takes calcium. Analysis Analyst/Model: Holoweendy Horizon A ([id number]/N [id number]) CLINICAL INFORMATION: Current height: 62 inches Maximum [...] Valencia Ritter M.D. TW: ISIS Report ID: [id number] Reading Location: [id number] Beau Clement MD IMG DXA PROCEDURES F inal Result documented in this encounter Visit Diagnoses Diagnosis Osteopenia of multiple sites documented in this encounter Care Teams Filer Helper Relationship Specialty Start Date End Date Beau Clement MD [address] [place] [address] PCP - Essence Attributed PCP 03/08/17 Beau Clement MD [address] [place] [address] PCP - General Family Medicine 07/13/18 documented as of this encounter
--- OUTSIDE RECORDS SUMMARY | 2024-03-18 22:40 | XMS_ITS | Encounter Summary ---
Author Organization [facility] Healthcare Address [address] [place] [address] Care Team Providers Care Magazine Supervisor Name Role Phone Beau Clement MD Unavailable [phone]- [phone] Beau Clement MD Primary Care Provid er Reason for Visit * Consultation (Routine) - Authorized Specialty Diagnoses / Procedures Referred By Contemre t Referred To Contact Neurology Diagnoses Late onset Alzheimer disease (HCC) Beau Clement MD [address] [place] [address] Phone: tel: fax: Beny Guillaume MD PhD [address] [address] Phone: tel: fax: Referral ID Status Reason Start Date Expiration Date Visits Requested Visits Authorized [id number] Authorized Specialty Services Required 11/22/2023 11/22/2024 6 6 Encounter Details Date Type Department Care Team (Late st Contact Info) Description 01/12/2024 11:00 AM OPERATIONS AGENT Office Visit [facility] [address] [facility] [address], [place] [id number] Beny Guillaume MD PhD [address] [address] Late onset Alzheimer's dementia without behavioral disturbance, psychotic disturbance, mood disturbance, or anxiety, unspecified dementia severity (HCC) (Primary Dx); Late onset Alzheimer disease (HCC) Social History Tobacco Use Types Packs/Day Years [...] on file Legal Sex Female 8:34 AM OPERATIONS AGENT Gender Identity Female 08/22/2019 6:09 AM CDT Sexual Orientation Straight 08/22/2019 6: 09 AM CDT documented as of this encounter Last Filed Vital Signs Vital Sign Reading Time Taken Comments Blood Pressure 110/74 01/12/2024 10:50 AM OPERATIONS AGENT Pulse 70 01/12/2024 10:50 AM OPERATIONS AGENT Temperature 36.4 ??C (97.6 ??F) 01/12/2024 10:[address] Respiratory Rate - - Oxygen Saturation 99% 01/12/2024 10:50 AM OPERATIONS AGENT Inhaled Oxygen Concentration - - Weight 46 kg (101 lb 6.4 oz) 01/12/2024 10:50 AM OPERATIONS AGENT Height - - Body Mass Index 18.85 11/16/2023 7:04 AM CDT documented in this encounter Progress Notes * Beny Guillaume MD PhD - 01/12/2024 11:00 AM CST Images from the original note were not included. Progress Note Patient: Dottie Bryant ( - 1945) is a 78 y.o. female. Visit Date: 01/12/2024 Interval history: This patient is seen in follow-up for senile dementia of the Alzheimer's type. I saw her initially two years ago with a 1-1/2 year history of progressive cognitive problems. Currently she is on donepezil 10 milligrams daily and memantine 10 milligrams bid. She does not do much except watch TV. She sleeps well at night. She needs assistance dressing. She is still resistant to bathing. Has been delusional at times thinking her parents or grandparents are still alive. However there has been no agitation, irritability or paranoia. Her walking is okay but she refuses to walk for exercise. Occasionally she will go with her when he walks the dog. She knows her son's by name but not her grandchildren. does not really have anyone to help at this time so he takes are everywhere withhim. Past Medical History: Past Medical History: Diagnosis Date Arthritis 10 years Cancer (CMS/HCC) (HCC) skin cancer on nose Cataract one taken out Dyslipidemia Hypertension Osteopenia TIA (transient ischemic attack) memory loss started 3 months ago July 2021. Unsure of TIA occurance Vitamin D deficiency Medications: Current Outpatient Medications: aspirin 81 mg enteric coated tablet, Take 1 tablet (81 mg total) by mouth every morning, Disp: , Rfl: atorvastatin (LIPITOR) 40 mg tablet, TAKE 1 TABLET BY MOUTH EVERY DAY, Disp: 90 tablet, Rfl: 3 calcium carbonate/vitamin D3 (CALCIUM 500 + D ORAL), Take 1 tablet by mouth every morning, Disp: , Rfl: donepeziL (ARICEPT) 10 mg tablet, TAKE 1 TABLET BY MOUTH EVERY DAY AT NIGHT, Disp: 90 tablet, Rfl: 3 gabapentin (NEURONTIN) 100 mg capsule, TAKE 1 CAPSULE BY MOUTH TWICE A DAY, Disp: 100 capsule, Rfl:1 ibandronate (BONIVA) 150 mg tablet, TAKE 1 TABLET EVERY 30 DAYS TAKE IN AM WITH GLASS OF WATER PRIOR TO FOOD, DON'T LIE DOWN X30 MINUTES, Disp: 3 tablet, Rfl: 1 memantine (NAMENDA) 10 mg tablet, Take 1 tablet (10 mg total) by mouth 2 (two) times a day, Disp: 60 tablet, Rfl: 11 metoprolol XL (TOPROL-XL) 25 mg extended release tablet, TAKE 1 TABLET BY MOUTH EVERY DAY, Disp: 90tablet, Rfl: 2 Physical Exam: Vitals: 01/12/24 1050 BP: 110/74 Pulse: 70 Temp: 36.4 ??C (97.6 ??F) SpO2: 99% Weight: 46 kg (101 lb 6.4 oz) She requires three trials and is still unable to register a five word phrase. She does not know themonth, the year or the time of day. She is unable to count backwards from 20-1 or recite the monthsin reverse. Recall was 0/5 objects. She did not know her age. Language: She was able to name 3/4 simple objects. She could not follow a multistep command. Affect Normal. Cranial nerves: 2-12 are examined and are normal Motor examination: No drift. Fine finger movements are performed normally. Normal bulk, strength and tone. No involuntary movements seen. Sensory: Soft touch and pinprick intact. Coordination: Mtlmcg-al-fatl testing and rapid alternating movements performed symmetrically. Deep tendon reflexes: 1+ at the brachioradialis, biceps triceps. 2+ at the knees. Gait: Normal station and gait. Radiology: Assessment and Plan: Dementia of the Alzheimer's type. Continue donepezil and memantine. Try to encourage physical activity. I also encouraged the to talk with his family about coming to stay with the patient so that he could get a break. He will also check with a neighbor who has offered. We will put through another referral to memory Care [facility]. Follow-up in one year. My total encounter time on 01/12/2024 was 35 minutes which was spent in the activities documented inthe note. This includes time spent prior to the visit and after the visit in direct care of the patient. This time does not include time spent in any separately reportable services. Diagnoses and all orders for this visit: Late onset Alzheimer's dementia without behavioral disturbance, psychotic disturbance, mood disturbance, or anxiety, unspecified dementia severity (HCC) (Primary) Late onset Alzheimer disease (HCC) - Ambulatory referral to Neurology 01/12/2024 11:18 AM Dictation completed by [employer] software. Mill Turner variances may occur. Beny Guillaume M.D., Ph.D. ATIONS AGENT documented in this encounter Plan of Treatment Not on file documented as of this encounter Visit Diagnoses Diagnosis Late onset Alzheimer's dementia without behavioral disturbance, psychotic disturbance, mood disturbance, or anxiety, unspecified dementia severity (HCC)- Primary Late onset Alzheimer disease (HCC) Alzheimer's disease documented in this encounter Orders Outpatient Referral Count Last Ordered Date Fir st Ordered Date AMB REFERRAL TO NEUROLOGY 1 01/12/2024 documented in this encounter Care Teams Magazine Supervisor Relationship Specialty Start Date End Date Beau Clement MD [address] [place] [address] PCP - Essence Attributed PCP 03/08/17 Beau Clement MD [address] [place] [address] PCP - General Family Medicine 07/13/18 documented as of this encounter
--- OUTSIDE RECORDS SUMMARY | 2024-03-18 22:40 | XMS_ITS | Encounter Summary ---
Author Organization [facility] Address [address] [place] [address] Phone Care Team Providers Care Hammersmith Helper Name Role Phone Beau Clement MD Unavailable [phone]- [phone] Beau Clement MD Primary Care Provid er Reason for Visit * Diagnostic Imaging (Routine) - Closed Specialty Diagnoses / Procedures Referred By Dede cat Referred To Contact Diagnoses Retinal drusen of both eyes Procedures OCT, Retina - OU - Both Eyes Shelbi Adams MD [facility] OPHTHAL[facility], [facility] [address] [place] [address] Phone: tel: fax: [facility] (All Locations) Referral ID Status Reason Start Date Expiration Date Visits Re quested Visits Authorized [id number] Closed 06/22/2022 07/22/2023 1 1 Encounter Details Date Type Department Care Team (Late st Contact Info) Description 06/29/2022 1:50 PM CDT Imaging Exam [facility] Ophthalmology [address] [facility] [address], [address] [place] [address] Retinal drusen of both eyes Social History Tobacco Use Types Packs/Day Years [...] PHQ-2 Answer Date Recorded PHQ-2 Total Score (If total score is 3 or more points, staff should administer the PHQ-9) 1 11/20/2021 Comments No Sex and Gender Information Value Date Recorded Sex Assigned at Not on file Legal Sex Female 8:34 AM BAGGER MEAT Gender Identity Female 08/22/2019 6:09 AM CDT Sexual Orientation Straight 08/22/2019 6: 09 AM CDT documented as of this encounter Plan of Treatment Not on file documented as of this encounter Procedures Procedure Name Priority Date/Time Associated Diagnosis Comments OCT, RETINA - OU - BOTH EYES Routine 06/29/2022 1:57 PM CDT Retinal drusen of both eyes documented in this encounter Results * OCT, Retina - OU - Both Eyes (06/29/2022 1:57 PM CDT) Central Macular Thickness OS 308 mircometers CONTINUUM Central Macular Thickness OD 296 micrometers CONTINUUM Anatomical Region Laterality Modality Head Other Narrative 06/29/2022 3:25 PM CDT Right Eye Quality was good. Scan locations included subfoveal. Macular thickness was 296 micrometers. Left Eye Quality was good. Scan locations included subfoveal. Macular thickness was 308 mircometers. Notes Macular drusen OU us Shelbi Adams MD OPHTH TOMOGRAPHY Final Result documented in this encounter Visit Diagnoses Diagnosis Retinal drusen of both eyes documented in this encounter Care Teams Hammersmith Helper Relationship Specialty Start Date End Date Beau Clement MD [address] [place] [address] PCP - Essence Attributed PCP 03/08/17 Beau Clement MD [address] [place] [address] PCP - General Family Medicine 07/13/18 documented as of this encounter
--- OUTSIDE RECORDS SUMMARY | 2024-03-18 22:40 | XMS_ITS | Encounter Summary ---
Author Organization [facility] Healthcare Address [address] [place] [address] Care Team Providers Care Informatica Architect Name Role Phone Beau Clement MD Unavailable + [phone] Beau Clement MD Primary Care Provid er Reason for Visit * Reason Comments Suture / Staple Removal 1 on back of hea d Encounter Details Date Type Department Care Team (Late st Contact Info) Description 09/24/2023 7:30 AM CDT Office Visit [facility] Family Medicine [address] [address] Randee Andrew PA [address] [id number] Laceration of scalp, initial encounter (Primary Dx); Encounter for removal of hiren; History of recent fall Social History Tobacco Use Types Packs/Day Years [...] on file Legal Sex Female 8:34 AM PURCHASING ASSISTANT Gender Identity Female 08/22/2019 6:09 AM CDT Sexual Orientation Straight 08/22/2019 6: 09 AM CDT documented as of this encounter Last Filed Vital Signs Vital Sign Reading Time Taken Comments Blood Pressure 122/60 09/24/2023 7:15 AM CDT Pulse 59 09/24/2023 7:15 AM CDT Temperature 36.1 ??C (97 ??F) 09/24/2023 7:15 AM CDT Respiratory Rate 18 09/24/2023 7:15 AM CDT Oxygen Saturation 94% 09/24/2023 7:15 AM CDT Inhaled Oxygen Concentration - - Weight 45.7 kg (100 lb 11.2 oz) 09/24/2023 7:15 AM CDT Height 156.2 cm (5' 1.5 ) 09/24/2023 7:15 AM CDT Body Mass Index 18.72 09/24/2023 7:15 AM CDT documented in this encounter Progress Notes * Randee Andrew PA - 09/24/2023 7:30 AM CDT Images from the original note were not included. Subjective/Objective Patient ID: Dottie Bryant is a 78 y.o. female. Chief Complaint Chief Complaint Patient presents with Suture / Staple Removal 1 on back of head HPI Patient presents today accompanied by her for ER follow-up. She was seen in [place] ER on 09/18/2023. She presented to the ED after an unwitnessed ground level fall with head injury. Her went to her as soon as he heard the fall, he did not witness any loss of consciousness. She wasup and walking around immediately after the fall. In the ER patient reported pain to the back of her head, otherwise at baseline. On exam she had a small 1 cm superficial laceration to the occiput that was closed with [address] head and neck which were both negative for acute findings. I personally reviewed the ER documentation and imaging results today. Patient states since discharge she has been doing well. She has a little bit of soreness around thelaceration but otherwise no headache, nausea, vomiting. states she is at her baseline and has been doing well. Review of Systems Constitutional: Negative for chills and fever. Respiratory: Negative for cough, shortness of breath and wheezing. Cardiovascular: Negative for chest pain and palpitations. Gastrointestinal: Negative for abdominal pain. Skin: Scalp laceration BP 122/60 (BP Location: Left arm, Patient Position: Sitting) Pulse 59 Temp 36.1 ??C (97 ??F) (Temporal) Resp 18 Ht 156.2 cm (5' 1.5 ) Wt 45.7 kg (100 lb 11.2 oz) SpO2 94% BMI 18.72 kg/m?? Physical Exam Vitals and nursing note reviewed. Constitutional: Appearance: She is well-developed. HENT: Head: Normocephalic and atraumatic. Right Ear: Hearing and external ear normal. Left Ear: Hearing and external ear normal. Mouth/Throat: Mouth: Mucous membranes are moist. Eyes: Extraocular Movements: Extraocular movements intact. Conjunctiva/sclera: Conjunctivae normal. Cardiovascular: Rate and Rhythm: Normal rate and regular rhythm. Heart sounds: Normal heart sounds. No murmur heard. Pulmonary: Effort: Pulmonary effort is normal. No respiratory distress. Breath sounds: Normal breath sounds. No decreased breath sounds, wheezing, rhonchi or rales. Skin: General: Skin is warm and dry. Findings: Laceration present. Comments: 1 laceration held together with 1 staple. No evidence of drainage or dehiscence. Scabbing along the laceration. Above this there is a large scab present with healing skin below. Scab was gently partially soaked off by ISIAH Lowery. Neurological: Mental Status: She is alert and oriented to person, place, and time. Psychiatric: Behavior: Behavior normal. Assessment/Plan Diagnoses and all orders for this visit: Laceration of scalp, initial encounter (Primary) Encounter for removal of hiren History of recent fall - 3. Laceration is healing well. I removed the staple and patient tolerated this well. Wound is closed and is healing well with scabbing in place. No sign of infection. Patient is otherwise doing well and is at her baseline. No other injuries from the fall. Discussed safety measures to prevent future falls. Follow-up as needed for new or changing symptoms. Cosigned by Sherlyn Lancaster MD at 09/24/2023 3:36 PM CDT documented in this encounter Plan of Treatment Not on file documented as of this encounter Visit Diagnoses Diagnosis Laceration of scalp, initial encounter- Primary Encounter for removal of hiren Encounter for removal of sutures History of recent fall documented in this encounter Care Teams Informatica Architect Relationship Specialty Start Date End Date Beau Clement MD [address] [place] [address] PCP - Essence Attributed PCP 03/08/17 Beau Clement MD [address] [place] [address] PCP - General Family Medicine 07/13/18 documented as of this encounter
--- OUTSIDE RECORDS SUMMARY | 2024-03-18 22:40 | XMS_ITS | Encounter Summary ---
Author Organization [facility] Healthcare Address [address] [place] [address] Care Team Providers Care Shoe Salesman Name Role Phone Beau Clement MD Unavailable +- [phone] Beau Clement MD Primary Care Provid er Reason for Visit * Reason Onset Date Comments Additional Services Or Orders 10/27/2023 Encounter Details Date Type Department Care Team (Late st Contact Info) Description 10/27/2023 Telephone [facility] Family Medicine [address] [address] Beau Clement MD [address] [address] Additional Services Or Orders Social History Tobacco Use Types Packs/Day Years [...] on file 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 condition/symptom, date of COVID exposure if applicable): Wants labs before PE Details Regarding Additional Services (e.g. type of home health, type of equipment, type of test, etc.): Routine Where will services be performed? (if outside of the practice, facility name, address, phone/fax offacility): In the office, please call to coordinate. Additional Comments: None Does message need to be routed? Yes-Action Needed documented in this encounter Plan of Treatment Not on file documented as of this encounter Results * (ABNORMAL) Albumin Creatinine Ratio, Urine (11/12/2023 12:44 PM CDT) Albumin Ur <12.0 mg/L Comment: Interpretive Data No reference range established. Current interpretive data was last revised 2018. Testing performed by: [facility], [address] [place] [address]., [address] Creatinine Ur 32.6 mg/dL TH[facility] FLORES Comment: Interpretive Data No reference range established. Current interpretive data was last revised 2018. Testing performed by: [facility], [address] [place] [address]., [address] Albumin Creatinine Ratio, Ur <37(H) 1 - 29 mg/g QUINT[place] Comment:Testing performed by : [facility], [address] [place] [address]., [address] Urine 11/12/2023 12:4 4 PM CDT 11/12/2023 2:21 PM CDT Beau Clement MD LAB URINE ORDERABLES Final Result Performing Organization Address [facility] de Phone Number [place] [id number] [facility] [place] [address] * Vitamin D 25 hydroxy (11/09/2023 8:43 AM CDT) Vitamin D 25-OH 40.0 30.0 - 80.0 ng/mL Blood 11/09/2023 8:43 AM CDT 11/09/2023 10:26 AM CDT Beau Clement MD LAB BLOOD ORDERABLES Final Result Performing Organization Address [facility] de Phone Number [address] [address] * Lipid panel (11/09/2023 8:43 AM CDT) Pathologist [facility] Cholesterol 184 30 - 199 mg/dL Comment: Interpretive Data Ages < or = 19 years ??Acceptable: ? <170 mg/dL ??Borderline high: ??170-199 mg/dL ??High: ? >or= 200 mg/dL Ages > or = 20 years ??Desirable: ?<200 mg/dL ??Borderline high: ??200-239 mg/dL ??High: ? >or= 240 mg/dL Literature References: 1. Expert Panel on Integrated Guidelines for Cardiovascular Health and Risk Reduction in Children and Adolescents. Pediatrics 2011;128:S213 2. NCEP Expert Panel. Circulation 2004;110:227 Current Interpretive Data was last revised on 2017. Testing performed by: [address] [address] Triglycerides 65 <=149 mg/dL THAO Comment: Interpretive Data Ages < or = 9 years ??Acceptable: ? <75 mg/dL ??Borderline high: ??75-99 mg/dL ??High: ? >or= 100 mg/dL Ages 10 to 20 years ??Acceptable: ? <90 mg/dL ??Borderline high: ??90-129 mg/dL ??High: ? >or= 130 mg/dL Ages > or = 20 years ??Desirable: ?<150 mg/dL ??Borderline high: ??150-199 mg/dL ??High: ? 200-499 mg/dL ?Very high: ?? >or= 499 mg/dL Literature References: 1. Expert Panel on Integrated Guidelines for Cardiovascular Health and Risk Reduction in Children and Adolescents. Pediatrics 2011;128:S213 2. NCEP Expert Panel. Circulation 2004;110:227 Current Interpretive Data was last revised on 2017. Testing performed by: [address] [address] HDL 105 >=40 mg/dL TH[facility] Comment: Interpretive Data Ages < or = 19 years ??Acceptable: ? >45 mg/dL ??Borderline low: ?? 40-45 mg/dL ??Low: ? <40 mg/dL Ages > or = 20 years ??Desirable: ?>or= 60 mg/dL ??Low: ? <40 mg/dL Literature References: 1. Expert Panel on Integrated Guidelines for Cardiovascular Health and Risk Reduction in Children and Adolescents. Pediatrics 2011;128:S213 2. NCEP Expert Panel. Circulation 2004;110:227 Current Interpretive Data was last revised on 2017. Testing performed by: [facility], [address] [place] [address]., [address] LDL, calculated 67 <=129 mg/dL THAO FLORES Comment: Interpretive Data Ages < or = 19 years ??Acceptable: ? <110 mg/dL ??Borderline high: ??110-129 mg/dL ??High: ?>or= 130 mg/dL Ages > or = 20 years ??Optimal: ? <100 mg/dL ??Near optimal: ?100-129 mg/dL ??Borderline high: ?? 130-159 mg/dL ??High: ?>160 mg/dL Calculated using the Raul LDL-C estimating equation. This equation was implemented on 2023. Prior to this date LDL-C was estimated using the Friedewald equation. Literature References: 1. Expert Panel on Integrated Guidelines for Cardiovascular Health and Risk Reduction in Children and Adolescents. Pediatrics 2011;128:S213 2. NCEP Expert Panel. Circulation 2004;110:227 3. Raul García et al. SHERRY Cardiol. 2020 July 06;5(5):540-548. doi: 10.1001/jamacardio.2020.0013 Current Interpretive Data was last revised on 2023. Testing performed by: [facility], [address] [place] [address]., [address] Non-HDL Cholesterol 79 mg/dL THAO FLORES Comment: Interpretive Data Ages < or = 19 years ??Acceptable: ?<120 mg/dL ??Borderline high: ??120-144 mg/dL ??High: ?>145 mg/dL Ages > or = 20 years ??When triglycerides are >200 mg/dL, Non-HDL cholesterol is a secondary target of ? therapy with treatment goals that are 30 mg/dL greater than the LDL cholesterol target. ? Literature References: 1. Expert Panel on Integrated Guidelines for Cardiovascular Health and Risk Reduction in Children and Adolescents. Pediatrics 2011;128:S213 2. NCEP Expert Panel. Circulation 2004;110:227 Current Interpretive Data was last revised on 2017. Testing performed by: [address] [address] Chol/HDL ratio 2 THAO Comment:Testing performed by : [address] [address] Blood 11/09/2023 8:43 AM CDT 11/09/2023 9:03 AM CDT Beau Clement MD LAB BLOOD ORDERABLES Final Result [facility] Department [place] [address] * Comprehensive metabolic panel (11/09/2023 8:43 AM CDT) Sodium 143 135 - 145 mmol/L Comment:Testing performed by : [address] [address] Potassium, pl 4.6 3.3 - 4.9 mmol/L THAO Comment:Testing performed by : [address] [address] Chloride 105 97 - 110 mmol/L THAO Comment:Testing performed by : [address] [address] CO2 27 22 - 32 mmol/L THAO Comment:Testing performed by : [address] [address] Anion gap 11 2 - 15 mmol/L THAO Comment:Testing performed by : [address] [address] BUN 12 6 - 25 mg/dL THAO Comment:Testing performed by : [address] [address] Creatinine 0.90 0.60 - 1.10 mg/dL THAO Comment:Testing performed by : [address] [address] Glucose 94 70 - 199 mg/dL [facility]AO Comment: Interpretive Data Fasting glucose >/= 126 mg/dl is diagnostic for diabetes. ?? Fasting is defined as no caloric intake for at least 8 hours. Fasting glucose between 100 mg/dl to 125 mg/dl is diagnostic of prediabetes. In a patient with classic symptoms of hyperglycemia or hyperglycemic crisis, a random glucose >/= 200 mg/dl is diagnostic for diabetes. In the absence of unequivocal hyperglycemia, results should be confirmed by repeat testing. The classification and Diagnosis of Diabetes Diabetes Care 2021; 46: S19-S40. Current interpretive data was last revised 2022. Testing performed by: [address] [address] Calcium 9.9 8.5 - 10.3 mg/dL THAO Comment:Testing performed by : [address] [address] Bilirubin, total 0.5 0.1 - 1.2 mg/dL THAO Comment:Testing performed by : [address] [address] Protein, pl 7.5 6.5 - 8.5 g/dL THAO Comment:Testing performed by : [address] [address] Albumin 4.0 3.5 - 5.0 g/dL THAO Comment:Testing performed by : [address] [address] Alk phos 61 40 - 130 Units/L THAO Comment:Testing performed by : [address] [address] ALT 22 7 - 45 Units/L [facility] Comment:Testing performed by : [address] [address] AST 28 10 - 45 Units/L [facility]AO Comment:Testing performed by : [address] [address] Blood 11/09/2023 8:43 AM CDT 11/09/2023 9:03 AM CDT us Beau Clement MD LAB BLOOD ORDERABLES Final Result [facility] [address] [facility] Department [place] [address] * (ABNORMAL) CBC with auto differential (11/09/2023 8:43 AM CDT) [facility] Signature WBC 8.1 3.8 - 9.9 K/cumm Comment:Testing performed by : [address] [address] Hgb 13.2 11.9 - 15.5 g/dL THAO Comment:Testing performed by : [address] [address] Hct 41.8 35.6 - 45.5 % THAO Comment:Testing performed by : [address] [address] Plt 314 150 - 400 K/cumm THOA Comment:Testing performed by : [address] [address] MPV 8.9(L) 9.1 - 12.3 fL [facility]AO Comment:Testing performed by : [address] [address] RBC 4.19 3.90 - 5.20 M/cumm [facility]AO Comment:Testing performed by : [address] [address] MCV 99.8(H) 81.3 - 96.4 fL [facility]AO Comment:Testing performed by : [address] [address] MCH 31.5 27.1 - 33.3 pg [facility] Comment:Testing performed by : [address] [address] MCHC 31.6(L) 32.3 - 35.7 g/dL THAO Comment:Testing performed by : [address] [address] RDW CV 12.7 11.1 - 14.9 % [facility]AO Comment:Testing performed by : [address] [address] RDW SD 46.6 35.7 - 48.1 fL [facility]AO Comment:Testing performed by : [address] [address] NRBC abs 0.00 0.00 - 0.01 K/cumm [facility]AO Comment:Testing performed by : [facility], [address] [place] [address], [place]., [address] Blood 11/09/2023 8:43 AM CDT 11/09/2023 9:02 AM CDT Beau Clement MD LAB BLOOD ORDERABLES Final Result [facility] [id number] [facility] Department [place] [address] documented in this encounter Visit Diagnoses Diagnosis Encounter for Medicare annual wellness exam- Primary Dyslipidemia Other and unspecified hyperlipidemia Essential (primary) hypertension Unspecified essential hypertension Vitamin D deficiency documented in this encounter Care Teams Shoe Salesman Relationship Specialty Start Date End Date Beau Clement MD [address] [place] [address] PCP - Essence Attributed PCP 03/08/17 Beau Clement MD [address] [place] [address] PCP - General Family Medicine 07/13/18 documented as of this encounter
--- OUTSIDE RECORDS SUMMARY | 2024-03-18 22:40 | XMS_ITS | Encounter Summary ---
Author Organization [facility] Address [address] [place] [address] Phone Care Team Providers Care Care Giver Name Role Phone Beau Clement MD Unavailable [phone] Beau Clement MD Primary Care Provid er Reason for Referral * Procedure (Routine) - Closed Specialty Diagnoses / Procedures Referred By Dede cat Referred To Contact Diagnoses PCO (posterior capsular opacification), bilateral Procedures Yag Capsulotomy - OD - Right Eye Shelbi Adams MD [address] DEPT OPHTHALMOLOGY, [address] [address] Phone: tel: fax: [facility] (All Locations) Referral ID Status Reason Start Date Expiration Date Visits Re quested Visits Authorized [id number] Closed 07/30/2022 08/29/2023 1 1 Encounter Details Date Type Department Care Team (Late st Contact Info) Description 07/30/2022 Orders Only [facility] Ophthalmology [address] 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 Gender Identity Female 08/22/2019 6:09 AM CDT Sexual Orientation Straight 08/22/2019 6: 09 AM CDT documented as of this encounter Plan of Treatment Not on file documented as of this encounter Procedures Procedure Name Priority Date/Time Associated Diagnosis Comments YAG CAPSULOTOMY - OD - RIGHT EYE Routine 07/30/2022 1:59 PM CDT PCO (posterior capsular opacification), bilateral documented in this encounter Results * Yag Capsulotomy - OD - Right Eye (07/30/2022 1:59 PM CDT) Anatomical Region Laterality Modality Head Laser Room Narrative 08/04/2022 8:45 PM CDT Time Out Informed consent was obtained after all risks, benefits and alternatives were explained to the patient. The patient understood, agreed and wished to proceed. Timeout was completed verifying the patient, procedure, laterality and allergies. Pre-laser Medication Anesthetic drops used during this laser treatment included: proparacaine. Prior to treatment the operative eye had the following drop(s) instilled, Pilocarpine 2%, Mydriacly 1%. Pre-laser IOP The pre-laser IOP was 17 at 12:05 PM. Laser Capsulotomy 49 applications were applied to the operative eye, the average power was 1 mW. Post-laser Medication Iopidine 0.5%, Pred Forte 1% was placed in the operative eye at the end of the procedure. Post-laser IOP The post-laser IOP was 15 at 1:56 PM. E-Prescribed Medication The following medication(s) - Prednisolone 1% was sent to the patients pharmacy. The patient will use the medication 4 times per day for 1 week. The patient tolerated the procedure, there were no complications during today's treatment. The patient will use the prescribed medication and was instructed to call immediately for any redness, vision loss, pain, swelling, and draining or pus-like material, fevers, or any other problems. The patient was instructed regarding their follow-up appointment. The patient received written and/or verbal post procedure care education. Notes [address] Paniagua Lots of movement, difficulty keep forehead in slit lamp. us Shelbi Adams MD OPHTH CLINIC PROCEDURES Final R esult documented in this encounter Visit Diagnoses Diagnosis PCO (posterior capsular opacification), bilateral- Primary Unspecified after-cataract documented in this encounter Care Teams Care Giver Relationship Specialty Start Date End Date Beau Clement MD [address] [place] [address] PCP - Essence Attributed PCP 03/08/17 Beau Clement MD [address] [place] [address] PCP - General Family Medicine 07/13/18 documented as of this encounter
--- OUTSIDE RECORDS SUMMARY | 2024-03-18 22:40 | XMS_ITS | Encounter Summary ---
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 ER SCALER * Telephone Encounter - Ross Espinoza LPN - 01/27/2023 1:29 PM LUMBER SCALER ----- Message from Sherlyn Lancaster MD sent at 01/25/2023 5:19 PM LUMBER SCALER ----- If we could please call the patient. Her bone density shows osteoporosis- no significant change. She can continue Boniva for now and follow up wit [facility] for any questions, thank you! ER SCALER documented in this encounter Plan of Treatment Not on file documented as of this encounter Visit Diagnoses Not on filedocumented in this encounter Care Teams Reel Film Inspector Relationship Specialty Start Date End Date Beau Clement MD [address] [place] [address] PCP - Essence Attributed PCP 03/08/17 Beau Clement MD [address] [place] [address] PCP - General Family Medicine 07/13/18 documented as of this encounter
--- OUTSIDE RECORDS SUMMARY | 2024-03-18 22:40 | XMS_ITS | Encounter Summary ---
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 Gender Identity Female 08/22/2019 6:09 AM CDT Sexual Orientation Straight 08/22/2019 6: 09 AM CDT documented as of this encounter Plan of Treatment Not on file documented as of this encounter Procedures Procedure Name Priority Date/Time Associated Diagnosis Comments EGFR Routine 11/20/2022 9:18 AM CDT Essential (primary) hypertension Dyslipidemia DIFFERENTIAL AUTO Routine 11/20/2022 9:1 8 AM CDT Essential (primary) hypertension CBC WITH AUTO DIFFERENTIAL Routine 11/20/2022 9:18 AM CDT Essential (primary) hypertension ALBUMIN CREATININE RATIO, URINE Routine 11/20/2022 9:18 AM CDT Essential (primary) hypertension LIPID PANEL Routine 11/20/2022 9:18 AM CDT Essential (primary) hypertension Dyslipidemia COMPREHENSIVE METABOLIC PANEL Routine 11/20/2022 9:18 AM CDT Essential (primary) hypertension Dyslipidemia documented in this encounter Results * eGFR (11/20/2022 9:18 AM CDT) eGFR 90 mL/min/1. 73 m2 [facility] Comment: Interpretive Data Reference Interval Normal ?>/= 90 mL/min/1.73m2 Mildly decreased* ? 60 - 89 mL/min/1.73m2 Mildly to moderately decreased ?45 - 59 mL/min/1.73m2 Moderately to severely decreased ??30 - 44 mL/min/1.73m2 Severely decreased ?15 - 29 mL/min/1.73m2 Kidney Failure ?< 15 ??mL/min/1.73m2 *Relative to young adult level Estimated glomerular filtration rate is determined by the 2020 CKD-EPI equation recommended by the National Kidney Foundation (A Unifying Approach to GFR Estimation: Recommendations of the NKF-ASK Task Force on Reassessing the Inclusion of Race in Diagnosing Kidney Disease, JASN 2020). The CKD-EPI equation should not be used for patients with unstable renal function and has not been validated in children and those over 70. Current interpretive data was last reviewed 2021. Testing performed by: [address] [address] Blood 11/20/2022 9:18 AM CDT 11/20/2022 10:26 AM CDT Beau Clement MD LAB BLOOD ORDERABLES Final Result [facility] [address] [facility] [place] [address] * Differential, auto (11/20/2022 9:18 AM CDT) Neutrophil abs 4.0 1.7 - 6.5 K/cumm [facility] Comment:Testing performed by : [address] [address] Imm gran abs 0.0 0.0 - 0.1 K/cumm [facility] Comment:Testing performed by : [address] [address] Lymphocyte abs 1.6 0.8 - 3.3 K/cumm [facility] Comment:Testing performed by : [address] [address] Monocyte abs 0.6 0.2 - 0.8 K/cumm [facility] Comment:Testing performed by : [address] [address] Eosinophil abs 0.3 0.0 - 0.5 K/cumm [facility] Comment:Testing performed by : [address] [address] Basophil abs 0.1 0.0 - 0.1 K/cumm [facility] Comment:Testing performed by : [address] [address] Neutrophil pct 61.2 % [facility] Comment: Interpretive Data Percent cell count reference ranges are not reported, since discordance with absolute values may lead to misinterpretation of CBC data. Current Interpretive Data was last revised on 2017. Testing performed by: [address] [address] Imm gran pct 0.3 % [facility] Comment: Interpretive Data Percent cell count reference ranges are not reported, since discordance with absolute values may lead to misinterpretation of CBC data. Current Interpretive Data was last revised on 2017. Testing performed by: [address] [address] Lymphocyte pct 23.7 % [facility] Comment: Interpretive Data Percent cell count reference ranges are not reported, since discordance with absolute values may lead to misinterpretation of CBC data. Current Interpretive Data was last revised on 2017. Testing performed by: [address] [address] Monocyte pct 9.4 % [facility] Comment: Interpretive Data Percent cell count reference ranges are not reported, since discordance with absolute values may lead to misinterpretation of CBC data. Current Interpretive Data was last revised on 2017. Testing performed by: [address] [address] Eosinophil pct 4.0 % [facility] Comment: Interpretive Data Percent cell count reference ranges are not reported, since discordance with absolute values may lead to misinterpretation of CBC data. Current Interpretive Data was last revised on 2017. Testing performed by: [address] [address] Basophil pct 1.4 % [facility] Comment: Interpretive Data Percent cell count reference ranges are not reported, since discordance with absolute values may lead to misinterpretation of CBC data. Current Interpretive Data was last revised on 2017. Testing performed by: [address] [address] Blood 11/20/2022 9:18 AM CDT 11/20/2022 10:27 AM CDT Beau Clement MD LAB BLOOD ORDERABLES Final Result [facility] [address] [facility] [place] [address] * Lipid panel (11/20/2022 9:18 AM CDT) [facility] Signature Cholesterol 186 30 - 199 mg/dL [facility] Comment: Interpretive Data Ages < [...] revised on 2017. Testing performed by: [facility], [address] [place] [address]., [address] Triglycerides 63 <=149 mg/dL [facility] Comment: Interpretive Data Ages [...] last revised on 2017. Testing performed by: [address] [address] HDL 105 >=40 mg/dL [facility] Comment: Interpretive Data Ages < or = [...] last revised on 2017. Testing performed by: [address] [address] LDL, calculated 68 <=129 mg/dL [facility] Comment: Interpretive Data Ages < or = 19 years ??Acceptable: ? <110 mg/dL ??Borderline high: ??110-129 mg/dL ??High: ?>or= 130 mg/dL Ages > or = 20 years ??Optimal: ? <100 mg/dL ??Near optimal: ?100-129 mg/dL ??Borderline high: ?? 130-159 mg/dL ??High: ?>160 mg/dL Literature References: 1. Expert Panel on Integrated Guidelines for Cardiovascular Health and Risk Reduction in Children and Adolescents. Pediatrics 2011;128:S213 2. NCEP Expert Panel. Circulation 2004;110:227 Current Interpretive Data was last revised on 2017. Testing performed by: [address] [address] Non-HDL Cholesterol 81 mg/dL [facility] Comment: Interpretive Data Ages < or = [...] last revised on 2017. Testing performed by: [address] [address] Chol/HDL ratio 2 [facility] Comment:Testing performed by : [address] [address] Blood 11/20/2022 9:18 AM CDT 11/20/2022 10:26 AM CDT Beau Clement MD LAB BLOOD ORDERABLES Final Result [facility] [address] [facility] Department of Laboratories [place], [place] [id number] * Comprehensive metabolic panel (11/20/2022 9:18 AM CDT) Sodium 140 135 - 145 mmol/L [facility] Comment:Testing performed by : [address] [address] Potassium, pl 4.1 3.3 - 4.9 mmol/L [facility] Comment:Testing performed by : [address] [address] Chloride 101 97 - 110 mmol/L [facility] Comment:Testing performed by : [address] [address] CO2 28 22 - 32 mmol/L [facility] Comment:Testing performed by : [address] [address] Anion gap 11 2 - 15 mmol/L [facility] Comment:Testing performed by : [address] [address] BUN 10 6 - 25 mg/dL [facility] Comment:Testing performed by : [address] [address] Creatinine 0.70 0.60 - 1.10 mg/dL [facility] Comment:Testing performed by : [address] [address] Glucose 98 70 - 199 mg/dL [facility] Comment: Interpretive [...] was last revised 2022. Testing performed by: [address] [address] Calcium 10.0 8.5 - 10.3 mg/dL [facility] Comment:Testing performed by : [address] [address] Bilirubin, total 0.5 0.1 - 1.2 mg/dL [facility] Comment:Testing performed by : [address] [address] Protein, pl 7.3 6.5 - 8.5 g/dL [facility] Comment:Testing performed by : [address] [address] Albumin 3.8 3.5 - 5.0 g/dL [facility] Comment:Testing performed by : [address] [address] Alk phos 67 40 - 130 Units/L [facility] Comment:Testing performed by : [address] [address] ALT 12 7 - 45 Units/L [facility] Comment:Testing performed by : [address] [address] AST 23 10 - 45 Units/L [facility] Comment:Testing performed by : [address] [address] Blood 11/20/2022 9:18 AM CDT 11/20/2022 10:26 AM CDT Beau Clement MD LAB BLOOD ORDERABLES Final Result [facility] [address] [facility] Department [place] [address] * (ABNORMAL) CBC with auto differential (11/20/2022 9:18 AM CDT) WBC 6.6 3.8 - 9.9 K/cumm [facility] Comment:Testing performed by : [address] [address] Hgb 12.4 11.9 - 15.5 g/dL [facility] Comment:Testing performed by : [address] [address] Hct 38.4 35.6 - 45.5 % [facility] Comment:Testing performed by : [address] [address] Plt 401(H) 150 - 400 K/cumm [facility] Comment:Testing performed by : [address] [address] MPV 8.9(L) 9.1 - 12.3 fL [facility] Comment:Testing performed by : [address] [address] RBC 3.80(L) 3.90 - 5.20 M/cumm [facility] Comment:Testing performed by : [address] [address] MCV 101.1(H) 81.3 - 96.4 fL [facility] Comment:Testing performed by : [address] [address] MCH 32.6 27.1 - 33.3 pg [facility] Comment:Testing performed by : [address] [address] MCHC 32.3 32.3 - 35.7 g/dL [facility] Comment:Testing performed by : [address] [address] RDW CV 13.4 11.1 - 14.9 % [facility] Comment:Testing performed by : [address] [address] RDW SD 50.0(H) 35.7 - 48.1 fL [facility] Comment:Testing performed by : [address] [address] NRBC abs 0.00 0.00 - 0.01 K/cumm [facility] Comment:Testing performed by : [address] [address] Blood 11/20/2022 9:18 AM CDT 11/20/2022 10:27 AM CDT Beau Clement MD LAB BLOOD ORDERABLES Final Result [facility] [address] [facility] Department of Laboratories [place], [place] [id number] * Albumin Creatinine Ratio, Urine (11/20/2022 9:18 AM CDT) Albumin Ur <12.0 mg/L [facility] Comment: Interpretive Data No reference range established. Current interpretive data was last revised 2018. Testing performed by: [address] [address] Creatinine Ur 56.4 mg/dL [facility] Comment: Interpretive Data No reference range established. Current interpretive data was last revised 2018. Testing performed by: [address] [address] Albumin Creatinine Ratio, Ur <21 1 - 29 mg/g [facility] Comment:Testing performed by : [address] [address] Urine 11/20/2022 9:18 AM CDT 11/20/2022 2:33 PM CDT Beau Clement MD LAB URINE ORDERABLES Final Result [facility] [address] [facility] Department [place] [address] documented in this encounter Visit Diagnoses Diagnosis Essential (primary) hypertension Unspecified essential hypertension Dyslipidemia Other and unspecified hyperlipidemia documented in this encounter Care Teams Certified Genetic Counselor Relationship Specialty Start Date End Date Beau Clement MD [address] [place], [place] [address] PCP - Essence Attributed PCP 03/08/17 Beau Clement MD [address] [place], [place] [id number] PCP - General Family Medicine 07/13/18 documented as of this encounter
--- OUTSIDE RECORDS SUMMARY | 2024-03-18 22:40 | XMS_ITS | Encounter Summary ---
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
--- OUTSIDE RECORDS SUMMARY | 2024-03-18 22:40 | XMS_ITS | Encounter Summary ---
Author Organization [facility] Address [address] [facility] [address] [place] [id number] Care Team Providers Care Fire Control System Installer Name Role Phone Beau Clement MD Unavailable + [phone] Beau Clement MD Primary Care Provid er Reason for Referral * Diagnostic Imaging (Routine) - Closed Specialty Diagnoses / Procedures Referred By Contac t Referred To Contact Diagnoses Osteopenia of multiple sites Procedures Dexa Axial Skeleton Bone Density 1 or 2 Site Beau Clement MD [address] [place] [address] Phone: tel: fax: [address] [address] Referral ID Status Reason Start Date Expiration Date Visits Re quested Visits Authorized [id number] Closed 11/30/2022 12/30/2023 1 1 Reason for Visit * Reason Comments Annual Exam Pt here for Annual E ssence exam. Encounter Details Date Type Department Care Team (Latest Contact Info) Description 11/30/2022 10:00 AM CDT Office Visit [facility] Family Medicine [address] [phone] Beau Clement MD [address] [place], [place] [id number] Encounter for Medicare annual wellness exam (Primary Dx); Late onset Alzheimer's dementia without behavioral disturbance (HCC); Cerebral microvascular disease; Vascular dementia without behavioral disturbance (HCC); Essential (primary) hypertension; Dyslipidemia; Generalized anxiety disorder; Overactive bladder; Chronic right-sided low back pain with right-sided sciatica; Lumbar foraminal stenosis; Osteopenia of multiple sites; Depression screening; At risk for falls Social History Tobacco Use Types Packs/Day Years Used Date Smoking Tobacco: Never Smokeless Tobacco: Never Tobacco Cessation:Counseling Given: Not Answered Alcohol Use Standard Drinks/Week Comments Not Currently [...] on file Legal Sex 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 Gender Identity Female 08/22/2019 6:09 AM CDT Sexual Orientation Straight 08/22/2019 6: 09 AM CDT documented as of this encounter Last Filed Vital Signs Vital Sign Reading Time Taken Comments Blood Pressure 130/70 11/30/2022 9:46 AM CDT Pulse 63 11/30/2022 9:43 AM CDT Temperature 36.6 ??C (97.9 ??F) 11/30/2022 9:43 AM CD T Respiratory Rate 16 11/30/2022 9:43 AM CDT Oxygen Saturation 98% 11/30/2022 9:43 AM CDT Inhaled Oxygen Concentration - - Weight 42.5 kg (93 lb 11.2 oz) 11/30/2022 9:43 A M CDT Height 156.2 cm (5' 1.5 ) 11/30/2022 9:43 AM CDT Body Mass Index 17.42 11/30/2022 9:43 AM CDT documented in this encounter Progress Notes * Beau Clement MD - 11/30/2022 10:00 AM CDT Images from the original note were not included. MEDICARE ANNUAL WELLNESS VISIT Dottie Bryant Basic Information In general, would you say your health is: Good Do you have an advance directive, such as a living will or durable power of assistant county attorney?: (!) No Would you like information regarding Advanced Directive (Living Will) and/or Durable Power of Communication Lecturer?: No Do you have to strain or struggle to hear/understand conversations?: No Have you experienced any of the following problems currently or recently? Eating: (!) Yes Grooming: No Bathing: No Walking: No Using the toilet: No Memory problems: (!) Yes Difficulty speaking: No Dressing: No Balance: No Pain: (!) Yes Sexual Health: No Fatigue: No Have you experienced any of the following problems currently or recently? Laundry and/or housekeeping: (!) Yes Handling money: (!) Yes Shopping: No Using the Phone: No Food preparation: No Transportation: No Taking and/or getting your own medications: No Do you use prescription drugs that are not prescribed for you?: No Do you struggle with any of the following: depression, stress, anger, loneliness or social isolation?: No Chief complaint: Annual Exam (Pt here for Annual Essence exam.) HPI: Valentina is here for her annual physical. She has no complaints today. Her appetite is good. She is sleeping well. She denies any bowel problems. Her reports, and she agrees, that she is urinating a little more than she used to. For instance she is getting up twice a night routinely. She denies any incontinence. She continues to have issues with memory. Her exercise remains minimal. The patient's past medical history, surgical history, family history, and social history were reviewed today. Past Medical History: Diagnosis Date Dyslipidemia Hypertension Osteopenia TIA (transient ischemic attack) [...] Relation Age of Onset Heart attack Mother Heart attack Father Diabetes Son Anesthesia problems Neg Hx Glaucoma Neg Hx Macular degeneration Neg Hx Social History Tobacco Use Smoking status: Never Smokeless tobacco: Never Substance and Sexual Activity Drug use: Never Sexual activity: Defer Alcohol Use: Not At Risk (12/02/2021) AUDIT-C Frequency of Alcohol Consumption: Monthly or less Average Number of Drinks: 1 or 2 Frequency of Binge Drinking: Less than monthly Allergies: Allergies Allergen Reactions Celecoxib Rash Current Medications: Outpatient Encounter Medications as of 11/30/2022 Medication Sig Dispense Refill aspirin 81 mg enteric coated tablet Take 1 tablet (81 mg total) by mouth every morning atorvastatin (LIPITOR) 40 mg tablet TAKE 1 TABLET BY MOUTH EVERY DAY 90 tablet 3 calcium carbonate/vitamin D3 (CALCIUM 500 + D ORAL) Take 1 tablet by mouth every morning donepeziL (ARICEPT) 10 mg tablet Take 1 tablet (10 mg total) by mouth nightly 30 tablet 11 gabapentin (NEURONTIN) 100 mg capsule TAKE 1 CAPSULE BY MOUTH TWICE A DAY 90 capsule 3 ibandronate (BONIVA) 150 mg tablet TAKE 1 TABLET (150 MG TOTAL) BY MOUTH EVERY 30 (THIRTY) DAYS TAKE IN AM WITH GLASS OF WATER PRIOR TO FOOD, DON'T LIE DOWN FOR 30 MINUTES. (Patient taking differently: Take 1 tablet (150 mg total) by mouth every 30 (thirty) days Take in AM with glass of water priorto food, don't lie down for 30 minutes. On the of the month) 3 tablet 3 metoprolol XL (TOPROL-XL) 25 mg extended release tablet TAKE 1 TABLET BY MOUTH EVERY DAY [address] (CYMBALTA) 30 mg capsule Take 1 capsule (30 mg total) by mouth 2 (two) times a day (Patient not taking: Reported on 11/30/2022) 90 capsule 3 [DISCONTINUED] HYDROcodone-acetaminophen (NORCO) 5-325 mg per tablet Take 1 tablet by mouth every 8(eight) hours as needed for pain 42 tablet 0 [DISCONTINUED] LORazepam (ATIVAN) 0.5 mg tablet Take 0.5 tablets (0.25 mg total) by mouth 3 (three)times a day as needed for anxiety 16 tablet 0 No facility-administered encounter medications on file as of 11/30/2022. Review of Systems Constitutional: Negative for activity [...] The patient is not nervous/anxious. Vitals: Vitals: 11/30/22 0943 11/30/22 0946 BP: 148/80 130/70 BP Location: Right arm Patient Position: Sitting Pulse: 63 Resp: 16 Temp: 36.6 ??C (97.9 ??F) TempSrc: Oral SpO2: 98% Weight: 42.5 kg (93 lb 11.2 oz) Height: 156.2 cm (5' 1.5 ) Physical [...] murmur heard. No friction rub. No gallop. Pulmonary: Effort: Pulmonary effort is normal. No [...] Content: Thought content normal. Cognition and Memory: Cognition and memory normal. Judgment: Judgment normal. Depression Screen: PHQ Screening Over the last 2 weeks, how often have you been bothered by any of the following problems? Little Interest or Pleasure in Doing Things: Several days Feeling Down, Depressed, or Hopeless: Not at all PHQ-2 Total Score (If total score is 3 or more points, staff should administer the PHQ-9): 1 Over the past 2 weeks, how often have you been bothered by any of the following problems? Little Interest or Pleasure in Doing Things: Several days Feeling Down, Depressed, or Hopeless: Not at all PHQ-2 Total Score (If total score is 3 or more points, staff should administer the PHQ-9): 1 Trouble Falling or Staying Asleep, or Sleeping too Much: Not at all Feeling Tired or Having Little Energy: Several days Poor Appetite or Overeating: Not at all Feeling Bad About Yourself - or That You are a Failure or Have Let Yourself or Your Family Down: Not at all Trouble Concentrating on Things, Such as Reading the Newspaper or Watching Television: Nearly everyday Moving or Speaking so Slowly That Other People Could Have Noticed, or the Opposite - Being so Fidgety or Restless That You Have Been Moving Around a lot More Than Usual: Not at all Thoughts That You Would be Better off , or of Hurting Yourself in Some Way: Not at all PHQ-9 Total Score: 4 If you checked off any problems, how difficult have these problems made it for you to do your work,take care of things at home, or get along with other people?: Somewhat difficult Anxiety screen: Generalized Anxiety Disorder 7-item (RYLIE-7) scale Feeling nervous, anxious, or on edge: Several days Not being able to stop or control worrying: Over half the days Worrying too much about different things: Not at all sure Trouble relaxing: Not at all sure Being so restless that it's hard to sit still: Not at all sure Becoming easily annoyed or irritable: Not at all sure Feeling afraid as if something awful might happen: Not at all sure Total Score: 3 If you checked off any problems, how difficult have these made it for you to do your work, take care of things at home, or get along with other people?: Somewhat difficult Audio/Visual screen: (only for [place] to Medicare visit) Normal Audio Screen: Is the patient having any problems with hearing? No Diet: good Physical Activities: 2-3 times a week Functional Capacity Patient is able to perform the following: ambulation, bathing and hygiene, feeding, continence, grooming, toileting, and dressing Up and Go Test: Patient was unsteady or time test was longer than 30 seconds? No STEADI Fall Risk Screening: In the past year, patient experienced: One or more falls in the last year: (!) Yes How many times?: 1 Has trouble stepping up onto a curb: No Advised to use a cane or walker to get around safely: No Often has to menezes to the toilet: No Feels unsteady when walking: No Has lost some feeling in feet: No Steadies self on furniture while walking at home: No Takes medicine that makes him/her feel lightheaded or more tired than usual: No Worried about falling: No Takes medicine to sleep or improve mood: No Needs to push with hands when rising from a chair: No Often feels sad or depressed: No STEADI Score Total: 2 Incontinence: Are you experiencing or have concern about urine leakage? No Detection of Cognitive Impairment: Detect cognitive impairment based on direct observation, discussion with patient or family, or review of medical records? Yes Advanced Directive Durable Power of Communication Lecturer: Yes Living Will: Yes Care Team Providers: Patient Care Team: Beau Clement MD as PCP - General (Family Medicine) Beau Clement MD as PCP - Essence Attributed PCP Primary Pharmacy/DME suppliers: [facility] [address] [place] [address] [address] [facility] [address] [facility] [address] Counseling and Referral of Preventative Services: Please see patient instructions section for recommendations for appropriate screening and monitoring guidelines. Health Maintenance: Health Maintenance Topics with due status: Overdue Topic Date Due Covid-19 Vaccine 04/09/2022 Health Maintenance Topics with due status: Due Soon Topic Date Due Osteoporosis Screening-Bone Density Scan 12/06/2022 Health Maintenance Topics with due status: Not Due Topic Last Completion Date DTaP/Tdap/Td Vaccine 09/03/2021 Fall Risk Assessment 11/30/2022 Depression Screening-PHQ 11/30/2022 Well Visit 65+ 11/30/2022 Health Maintenance Topics with due status: Completed Topic Last Completion Date Hepatitis C Screening 06/24/2015 Zoster Vaccine 11/03/2017 Pneumococcal vaccine 65+ 10/01/2020 Influenza Vaccine 11/24/2022 Health Maintenance Topics with due status: Discontinued [...] onset Alzheimer's dementia without behavioral disturbance (HCC) Essential (primary) hypertension Generalized anxiety disorder Dyslipidemia Overactive bladder Chronic right-sided low back pain with right-sided sciatica Lumbar foraminal stenosis Osteopenia of multiple sites - Dexa Axial Skeleton Bone Density 1 or 2 Site; Future Depression screening At standard risk for fall Plan: 1. Annual Exam: Continue healthy diet, Encouraged more exercise, as tolerated, with a goal of 150 minutes/week. Labs reviewed with the patient and her . Good health and prevention strategies discussed. 2. Alzheimer's/Vascular Dementia/Cerebral microvascular disease: The patient looks to have both Alzheimer's and vascular dementia. Slowly progressing Sees Neurology. Keep blood pressure and lipids controlled. Continue donepezil. Continue to monitor. 3. Hypertension: Remains well controlled on metoprolol XL Continue low sodium diet. Healthy weight discussed. Encouraged more exercise, as tolerated. 4. Dyslipidemia: Remains well controlled on atorvastatin. Continue healthy diet. Maintain healthy weight Encouraged more exercise. Labs reviewed with the patient. 5. Anxiety: Doing well off medication. Continue to monitor. 6. Overactive bladder: Recent onset. Discussed the diagnosis, prognosis, and treatment options with the patient, including medication options. She prefers no medication at this time. 7. Chronic right-sided low back pain with known lumbar foraminal stenosis: Stable, doing well. Continue OTC analgesics as needed 8. Osteopenia: Stable. Continue calcium vitamin-D supplementation. Continue Boniva. Recheck DEXA scan. 9. Depression screening: PHQ 2 score of 3, but PHQ 9 score of 5. Will continue to monitor. 8. Fall risk: Patient is at increased risk of falling, and has fallen this year Fall risk mitigation and reduction were discussed documented in this encounter Plan of Treatment Not on file documented as of this encounter Results * Dexa Axial Skeleton Bone Density 1 or 2 Site (01/25/2023 7:09 AM BIOFUELS OPERATIONS MANAGER) Anatomical Region Laterality Modality Body N/A Mammography 01/25/2023 9:51 AM BIOFUELS OPERATIONS MANAGER Narrative 01/25/2023 9:52 AM BIOFUELS OPERATIONS MANAGER EXAM DESCRIPTION: DEXA AXIAL SKELETON BONE DENSITY 1 OR MORE SITES REASON FOR STUDY: 77 y/o ?? year old ??F ??with given history of: ??Postmenopausal status. ??Patient takes calcium. ? Protection Analyst/Model: Karaz A ([id number]/N [id number]) CLINICAL INFORMATION: Current height: ??62 ??inches ? [...] Electronically signed by ??Valencia Ritter M.D. TW: TW D: ??01/25/2023 9:52 AM T: ??01/25/2023 9:52 AM Report ID: [id number] Reading Location: ??[id number] Procedure Note Valencia Ritter MD - 01/25/2023 EXAM DESCRIPTION: DEXA AXIAL SKELETON BONE DENSITY 1 OR MORE SITES REASON FOR STUDY: 77 y/o year old F with given history of:Postmenopausal status. Patient takes calcium. Protection Analyst/Model: Karaz A ([id number]/N [id number]) CLINICAL INFORMATION: Current height: 62 inches Maximum [...] Electronically signed by Valencia Ritter M.D. TW: TW Report ID: [id number] Reading Location: [id number] Beau Clement MD IMFreddy DXA PROCEDURES F inal Result documented in this encounter Visit Diagnoses Diagnosis Encounter for Medicare annual wellness exam- Primary Late onset Alzheimer's dementia without behavioral disturbance (HCC) Cerebral microvascular disease Unspecified cerebrovascular disease Vascular dementia without behavioral disturbance (HCC) Essential (primary) hypertension Unspecified essential hypertension Dyslipidemia Other and unspecified hyperlipidemia Generalized anxiety disorder Overactive bladder Hypertonicity of bladder Chronic right-sided low back pain with right-sided sciatica Lumbar foraminal stenosis Osteopenia of multiple sites Depression screening At risk for falls Personal history of fall Osteopenia of multiple sites documented in this encounter Discontinued Medications Medication Sig Discontinue Reason Start Date End Da te HYDROcodone-acetaminophe n (NORCO) 5-325 mg per tabletIndications:Pain Take 1 tablet by mouth every 8 (eight) hours as needed for pain 02/10/2022 11/30/2022 LORazepam (ATIVAN) 0.5 mg tablet Take 0.5 tablets (0.25 mg total) by mouth 3 (three) times a day as needed for anxiety 02/11/2022 11/30/2022 documented as of this encounter Care Teams Fire Control System Installer Relationship Specialty Start Date End Date Beau Clement MD [address] [place] [address] PCP - Essence Attributed PCP 03/08/17 Beau Clement MD [address] [place] [address] PCP - General Family Medicine 07/13/18 documented as of this encounter
--- OUTSIDE RECORDS SUMMARY | 2024-03-18 22:40 | XMS_ITS | Encounter Summary ---
Author Organization [facility] Healthcare Address [address] [place] [address] Care Team Providers Care Slab Lifting Engineer Name Role Phone Beau Clement MD Unavailable + [phone] Beau Clement MD Primary Care Provid er Reason for Visit * Reason Comments Follow-up Pt was seen at [facility] on 08/08. Pt here for f/u. Pt is doing well, she needs hiren removed today. Encounter Details Date Type Department Care Team (Late st Contact Info) Description 08/16/2023 8:00 AM CDT Office Visit 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 Gender Identity Female 08/22/2019 6:09 AM CDT Sexual Orientation Straight 08/22/2019 6: 09 AM CDT documented as of this encounter Last Filed Vital Signs Vital Sign Reading Time Taken Comments Blood Pressure 128/60 08/16/2023 7:51 AM CDT Pulse 51 08/16/2023 7:51 AM CDT Temperature 36.4 ??C (97.5 ??F) 08/16/2023 7:51 AM CD T Respiratory Rate 16 08/16/2023 7:51 AM CDT Oxygen Saturation 96% 08/16/2023 7:51 AM CDT Inhaled Oxygen Concentration - - Weight 45.1 kg (99 lb 6.4 oz) 08/16/2023 7:51 AM CDT Height 156.2 cm (5' 1.5 ) 08/16/2023 7:51 AM CDT Body Mass Index 18.48 08/16/2023 7:51 AM CDT documented in this encounter Progress Notes * Beau Clement MD - 08/16/2023 8:00 AM CDT Subjective/Objective Patient ID: Dottie Bryant is a 78 y.o. female. Chief Complaint Chief Complaint Patient presents with Follow-up Pt was seen at [facility] on 08/08. Pt here for f/u. Pt is doing well, she needs ihren removed today. HPI The patient fell out of bed on 08/09/23 and struck the back of her head, suffering a scalp laceration. She was taken to [facility], where they checked a CT scan of the brain and cervical spine, as well as placed 9 hiren in the scalp. She is here today for ER follow-up and staple removal. She reports that she is feeling fine. The hiren are holding a little and itching, but otherwise the laceration is healing well. She denies any drainage or discharge from it. She denies any headaches or any bruising. She denies any visual changes. The ER notes, reports, and studies were reviewed. Medications were reconciled. The patient's past medical history, surgical history, family history, and social history were reviewed today. Review of Systems Constitutional: Negative for activity change, appetite change, fatigue and fever. HENT: Negative for congestion, ear pain, rhinorrhea and sore throat. Eyes: Negative for discharge and visual disturbance. Respiratory: Negative for cough, shortness of breath and wheezing. Cardiovascular: Negative for chest pain and palpitations. Gastrointestinal: Negative for abdominal pain, constipation, diarrhea, nausea and vomiting. Endocrine: Negative for cold intolerance, heat intolerance, polydipsia and polyuria. Genitourinary: Negative for dysuria, frequency, hematuria and urgency. Musculoskeletal: Negative for arthralgias, joint swelling and myalgias. Skin: Positive for wound. Negative for rash. Neurological: Negative for dizziness, weakness, light-headedness and headaches. Psychiatric/Behavioral: Negative for decreased concentration and sleep disturbance. The patient is not nervous/anxious. Physical Exam Vitals and nursing note reviewed. [...] refill takes less than 2 seconds. Findings: Laceration (2 laceration held together with 9 hiren. No evidence of drainage or dehiscence. Significant scabbing along the medial aspect of the laceration, obscuring the last two hiren) present. No rash. Neurological: General: No focal deficit [...] Cognition and memory normal. Judgment: Judgment normal. Assessment/Plan Diagnoses and all orders for this visit: Laceration of scalp, initial encounter (Primary) Encounter for staple removal Late onset Alzheimer's dementia without behavioral disturbance (HCC) Osteopenia of both hips Essential (primary) hypertension Dyslipidemia Plan: 1. Scalp laceration/staple removal. I was able to remove the first 8 hiren, but the final staple was buried under a thick layer of scabbing and matted hair. I discussed home remedies to break up the matting, and will have him stop bylater this week for a quick visit to remove the final staple. No evidence of infection. Healing well. 2. Alzheimer's: Persisting, slowly worsening. Continue donepezil and memantine. Continue care per Dr. Guillaume, neurology. 3. Osteopenia: Continue calcium and vitamin-D supplementation. Continue Boniva. No fractures with the most recent fall. 4. Hypertension: Continue healthy low-sodium diet Continue low-dose metoprolol. Continue to monitor. 5. Dyslipidemia: Continue healthy diet. Continue atorvastatin. documented in this encounter Plan of Treatment Not on file documented as of this encounter Visit Diagnoses Diagnosis Laceration of scalp, initial encounter- Primary Encounter for staple removal Late onset Alzheimer's dementia without behavioral disturbance (HCC) Osteopenia of both hips Essential (primary) hypertension Unspecified essential hypertension Dyslipidemia Other and unspecified hyperlipidemia documented in this encounter Discontinued Medications Medication Sig Discontinue Reason Start Date End Da te memantine (NAMENDA TITRATION PACK) tablet pack 5 mg/day for =1 week; 5 mg twice daily for =1 week; 15 mg/day given in 5 mg and 10 mg doses for =1 week; then 10 mg twice daily Alternate therapy 01/13/2023 08/16/2023 documented as of this encounter Historical Medications * This list may reflect changes made after this encounter. cephalexin (KEFLEX) 500 mg capsule Take 1 capsule (500 mg total) by mouth 4 (four) times a day 08/09/2023 11/16/2023 added in this encounter Care Teams Slab Lifting Engineer Relationship Specialty Start Date End Date Beau Clement MD [address] [place] [address] PCP - Essence Attributed PCP 03/08/17 Beau Clement MD [address] [place], [place] [id number] PCP - General Family Medicine 07/13/18 documented as of this encounter
--- OUTSIDE RECORDS SUMMARY | 2024-03-18 22:40 | XMS_ITS | Encounter Summary ---
Author Organization [facility] Healthcare Address [address] [place] [address] Care Team Providers Care Remediation Bioanalytics Consultant Name Role Phone Beau Clement MD Unavailable +- [phone] Beau Clement MD Primary Care Provid er Reason for Visit * Reason Onset Date Comments Appointment Request 09/20/2023 Call Back 09/20/2023 Encounter Details Date Type Department Care Team (Late st Contact Info) Description 09/20/[address] 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 Pt voiced understanding and agreed to be placed on hold for warm transfer to discuss staple removal. Does message need to be routed? No * Telephone Encounter - Donna Yeboah - 09/21/2023 8:52 AM CDT Lvm asking for a return call. Please put the pt thru to the office for scheduling. * Telephone Encounter - Rola Shah - 09/20/2023 2:00 PM CDT Appointment Request What visit type does the patient need? Visit Type: Established Patient What is the reason for the visit? Removal of staple that was placed in head on 09/17 [facility]; caller mentioned that he was provided a tool to remove the staple What is the reason we were unable to schedule the appointment? Current appointment availability didnot meet patient's need. Staple needed to be removed with in 7 days. Patient going on a trip; leaving on the If applicable, were all members of the patient's PCP care team offered (e.g., nurse practioner(s), physician special events assistant(s)) ? N/A, caller stated that his can be seen by anyone. Additional Comments: Caller also mentioned that his has a mild case of dementia. Does message need to be routed? Yes-Action Needed documented in this encounter Plan of Treatment Not on file documented as of this encounter Visit Diagnoses Not on filedocumented in this encounter Care Teams Remediation Bioanalytics Consultant Relationship Specialty Start Date End Date Beau Clement MD [address] [place] [address] PCP - Essence Attributed PCP 03/08/17 Beau Clement MD [address] [place] [address] PCP - General Family Medicine 07/13/18 documented as of this encounter
--- OUTSIDE RECORDS SUMMARY | 2024-03-18 22:40 | XMS_ITS | Encounter Summary ---
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
--- OUTSIDE RECORDS SUMMARY | 2024-03-18 22:40 | XMS_ITS | Encounter Summary ---
Author Organization [facility] Medical Group Address [address] [facility] [address] [place] [address] Care Team Providers Care Tax Examining Technician Name Role Phone Beau Clement MD Unavailable +- [phone] Beau Clement MD Primary Care Provid er Reason for Visit * Reason Onset Date Comments Referral Request 10/21/2022 Encounter Details Date Type Department Care Team (Late st Contact Info) Description 10/21/2022 Telephone [facility] Medical Group Family Medicine [address] [address] Beau Clemnet MD [address] [address] Referral Request Social History Tobacco Use Types Packs/Day Years [...] on file 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 Which one would you like? * Telephone Encounter - Lisa Sepulveda - 10/22/2022 8:[address] External referral as requested. * Telephone Encounter - Joseph Richardson - 10/21/2022 10:51 AM CDT Referral Provider Name (if patient is seeing a nurse practitioner or physician assistant professor of history, list the CYBER POLICY AND STRATEGY PLANNER/PA, but also their collaborating doctor): Beny Gabriel, D.P.M. Specialty: Podiatry - Foot and Ankle Surg Address: [address] [place] [address] Diagnosis Code/Symptom/Reason Patient is being seen: b35.1 Date of Appointment: 10/29/22 NPI#: [id number] Tax ID#: [id number] Is insurance in chart up to date? yes Caller???s Callback #: [phone] Additional Comments: na Does message need to be routed? Yes-Action Needed documented in this encounter Plan of Treatment Not on file documented as of this encounter Visit Diagnoses Diagnosis Bilateral foot pain- Primary Dermatophytosis of nail documented in this encounter Care Teams Tax Examining Technician Relationship Specialty Start Date End Date Beau Clement MD [address] [place] [address] PCP - Essence Attributed PCP 03/08/17 Beau Clement MD [address] [place] [id number] PCP - General Family Medicine 07/13/18 documented as of this encounter
--- OUTSIDE RECORDS SUMMARY | 2024-03-18 22:40 | XMS_ITS | Encounter Summary ---
Author Organization [facility] Healthcare Address [address] [place] [address] Care Team Providers Care Liquor Maker Name Role Phone Beau Clement MD Unavailable +1- [phone] Beau Clement MD Primary Care Provid er Reason for Referral * Consultation (Routine) - Closed Specialty Diagnoses / Procedures Referred By Contac t Referred To Contact Podiatry Diagnoses Toenail fungus Beau Clement MD [address] [address] Phone: tel: fax: Regan Mitchell, DPM [address] [place] [address] Phone: tel: fax: Referral ID Status Reason Start Date Expiration Date V isits Requested Visits Authorized [id number] Closed Specialty Services Required 01/13/2024 01/13/2025 6 8 Question Answer Please select the performing region: External Order [171] To provider: REGAN MITCHELL [[id number]] # of visits: 6 HER EARLY CHILDHOOD DEVELOPMENT Encounter Details Date Type Department Care Team (Late st Contact Info) Description 01/13/2024 Telephone [facility] Medical Group Family Medicine [address] [address] Beau Clement MD [address] [place] [address] Social History Tobacco Use Types Packs/Day Years [...] on file 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 Gender Identity Female 08/22/2019 6:09 AM CDT Sexual Orientation Straight 08/22/2019 6: 09 AM CDT documented as of this encounter Miscellaneous Notes * Telephone Encounter - Anabelle Cristobal LPN - 01/13/2024 2:16 PM CST err HER EARLY CHILDHOOD DEVELOPMENT documented in this encounter Plan of Treatment Scheduled Referrals Name Type Priority Associated Diagnoses Order Schedule Ambulatory referral to Podiatry Outpatient Referral Routine Toenail fungus Expected: 01/27/2024 (Approximate), Expires: 01/12/2025 documented as of this encounter Visit Diagnoses Diagnosis Toenail fungus- Primary documented in this encounter Care Teams Liquor Maker Relationship Specialty Start Date End Date Beau Clement MD [address] [place] [address] PCP - Essence Attributed PCP 03/08/17 Beau Clement MD [address] [place] [address] PCP - General Family Medicine 07/13/18 documented as of this encounter
--- OUTSIDE RECORDS SUMMARY | 2024-03-18 22:40 | XMS_ITS | Encounter Summary ---
Author Organization [facility] Healthcare Address [address] [place] [address] Care Team Providers Care Amf Mechanic Name Role Phone Beau Clement MD Unavailable +1- [phone] Beau Clement MD Primary Care Provid er Reason for Visit * Reason Onset Date Comments Earache 09/16/2023 Encounter Details Date Type Department Care Team (Late st Contact Info) Description 09/16/2023 Nurse Triage [facility] Medical Group Family Medicine [address] [address] Sahara Carvajal, BOBBY Social History Tobacco Use Types Packs/Day Years [...] on file 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 grid trimmer made two attempts to call back with no response. Left VM each time. Asked pt to call back for further assistance. Reason for Disposition Second attempt to contact caller AND no contact made. Phone number verified. Protocols used: No Contact or Duplicate Contact [id number] * Telephone Encounter - Mabel Jara - 09/16/2023 1:26 PM CDT Regarding: Ear pain and drainage ----- Message from Joseph Loco sent at 09/16/2023 12:57 PM CDT ----- Symptom Based Call Chief Complaint(s): Ear pain and drainage Duration: 2-3 days What type of symptom(s) is the patient experiencing? Non-Emergent. Is this a new or reoccurring symptom(s)? new What have you tried to help your symptom(s)? nothing Why was appointment not scheduled? Appointment availability did not meet the patient's need. Additional Comments: na Does message need to be routed? Yes-Action Needed documented in this encounter Plan of Treatment Not on file documented as of this encounter Visit Diagnoses Not on filedocumented in this encounter Care Teams Amf Mechanic Relationship Specialty Start Date End Date Beau Clement MD [address] [place] [address] PCP - Essence Attributed PCP 03/08/17 Beau Clement MD [address] [place] [address] PCP - General Family Medicine 07/13/18 documented as of this encounter
--- OUTSIDE RECORDS SUMMARY | 2024-03-18 22:40 | XMS_ITS | Encounter Summary ---
Author Organization [facility] Medical Group Address [address] [facility] [address] [place] [address] Care Team Providers Care Fancy Needleworker Name Role Phone Beau Clement MD Unavailable +- [phone] Beau Clement MD Primary Care Provid er Reason for Visit * Reason Onset Date Comments Appointment 09/07/2022 Encounter Details Date Type Department Care Team (Late st Contact Info) Description 09/07/2022 Telephone [facility] Medical Group Family Medicine [address] [address] Beau Clement MD [address] [address] Appointment Social History Tobacco Use Types Packs/Day Years [...] on file 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 If she had any questions to call the office. * Telephone Encounter - Beau Clement MD - 09/07/2022 3:17 PM CDT Labs ordered. 8h fast. * Telephone Encounter - Ara Fischer MA - 09/07/2022 2:37 PM CDT Please review and order labs if needed. * Telephone Encounter - Donna Yeboah - 09/07/2022 11:47 AM CDT Pt is scheduled in Oct for her EE. Does the pt need labs? If so she uses . * Telephone Encounter - Michelle Rendon - 09/07/2022 11:39 AM CDT Call Back Caller???s Concern: Patient spouse calling on behalf of patient returning call to office. CS informed caller call was regarding a EE appointment. Patient spouse did not understand the reason for appointment. CS warm transferred to backline for further assistance Caller???s Call back #: [phone] Does message need to be routed? No * Telephone Encounter - Ara Fischer MA - 09/07/2022 8:36 AM CDT Called patient to scheduled Essence encounter. (45 minutes) left message for patient to call office. documented in this encounter Plan of Treatment Not on file documented as of this encounter Visit Diagnoses Not on filedocumented in this encounter Care Teams Fancy Needleworker Relationship Specialty Start Date End Date Beau Clement MD [address] [place] [address] PCP - Essence Attributed PCP 03/08/17 Beau Clement MD [address] [place] [address] PCP - General Family Medicine 07/13/18 documented as of this encounter
--- OUTSIDE RECORDS SUMMARY | 2024-03-18 22:40 | XMS_ITS | Encounter Summary ---
Author Organization [facility] Healthcare Address [address] [place] [address] Care Team Providers Care Sound Technician Supervisor Name Role Phone Beau Clement MD Unavailable +- [phone] Beau Clement MD Primary Care Provid er Reason for Visit * Reason Onset Date Comments Referral Request 01/11/2024 Encounter Details Date Type Department Care Team (Late st Contact Info) Description 01/11/2024 Telephone [facility] Medical Group Family Medicine [address] [address] Beau Clement MD [address] [address] Referral Request Social History Tobacco [...] on file 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 Beny Gabriel Specialty: podiatry Address: [address] [place] [address], Zip: [address] Diagnosis Code/Symptom/Reason Patient is being seen: B35.1 Date of Appointment: 01/21/24 NPI#: [id number] Tax ID#: [id number] Is insurance in chart up to date? yes Additional Comments: - Does message need to be routed? Yes-Action Needed H PRINTING BACK TENDER documented in this encounter Plan of Treatment Not on file documented as of this encounter Visit Diagnoses Not on filedocumented in this encounter Care Teams Sound Technician Supervisor Relationship Specialty Start Date End Date Beau Clement MD [address] [place] [address] PCP - Essence Attributed PCP 03/08/17 Beau Clement MD [address] [place] [address] PCP - General Family Medicine 07/13/18 documented as of this encounter
--- OUTSIDE RECORDS SUMMARY | 2024-03-18 22:40 | XMS_ITS | Referral Summary ---
Author Organization [address] Address [address] [place] [phone] Care Team Providers Care Seam Presser Name Role Phone Beau Clement MD Unavailable + [phone] Beau Clement MD Primary Care Provid er Encounters Date Type Department Care Team Description 03/16/2024 Telephone [facility] [address] [facility] [address] [place] [phone] Beau Clement MD Medical Question/Miscellaneo us 03/11/2024 Orders Only [facility] Health Information Management [address] [place] [id number] Beny Duff DO 02/01/2024 1:24 PM SCISSORS GRINDER - 02/01/2024 11:59 PM SCISSORS GRINDER Hospital Encounter [facility] Breast Imaging [address] [place] [address] Screening mammogram, encounter for Discharge Disposition: Discharge to home or self care 01/13/2024 Letter (Out) [facility] [address] [place] [phone] 01/13/[address] [facility] [address] [place] [phone] Beau Clement MD 01/12/2024 11:00 AM SCISSORS GRINDER Office Visit [facility] [address] [facility] [address] [place] [address] Beny Guillaume MD PhD Late onset Alzheimer's dementia without behavioral disturbance, psychotic disturbance, mood disturbance, or anxiety, unspecified dementia severity (HCC) (Primary Dx); Late onset Alzheimer disease (HCC) 01/11/2024 Telephone [facility] [address] [phone] Beau Clement MD Referral Request 01/06/2024 Letter (Out) [facility] [address] [phone] from Last 3 Months Allergies Active Allergy Reactions Criticality Noted Date [...] Date Diagnosed Date PCO (posterior capsular opacification), bilatera l 05/21/2022 Assessment & Plan (07/30/2022 1:18 PM [...] (08/16/2023): Added automatically from request for surgery [id number] Late onset Alzheimer's demen tia without behavioral [...] 08/15/2021 Overview (05/21/2022): Had CE/IOL OD at [facility]. Will obtain IOL records. 12/03/2021- phaco/ intraocular lens (IOL) left eye (OS)- ABarsam Assessment & Plan (07/30/2022 1:19 PM CDT): Had CE/IOL OD at [facility]. Will obtain IOL records. 12/03/2021- phaco/ intraocular lens (IOL) left eye (OS)- ABarsam Will to change MRx after YAG cap right eye (OD). Assessment & Plan (05/21/2022 12:10 PM CDT): Had CE/IOL OD at [facility]. Will obtain IOL records. 12/03/2021- phaco/ intraocular lens (IOL) left eye (OS)- ABarsam BCVA is not much worse than postop. MRx update never given. Told by optom needs YAG cap. Assessment & Plan (10/01/2021 9:50 AM CDT): Had CE/IOL OD at [facility]. Will obtain IOL records. Assessment & Plan [...] at night. - RTC 1 month for DFEx, MRx Assessment & Plan (12/03/2021 9:34 AM CDT): [...] optic nerve (ON) cupping Reassurance RTC prn Immunizations Name Administration Dates Next Due COVID-19 mRNA (Kunerango) 0.3 m L (30 mcg) vaccine (12 [...] 05/06/2018 ZOSTER LIVE 08/27/2010 ZOSTER Recombinant 11/03/2017,07/09/2017 Social History Tobacco Use Types Packs/Day Years [...] on file Legal Sex Female 8:34 AM SCISSORS GRINDER Gender Identity Female 08/22/2019 6:09 AM CDT Sexual Orientation Straight 08/22/2019 6: 09 AM CDT Last Filed Vital Signs Vital Sign Reading Time Taken Comments Blood Pressure 110/74 01/12/2024 10:50 AM SCISSORS GRINDER Pulse 70 01/12/2024 10:50 AM SCISSORS GRINDER Temperature 36.4 ??C (97.6 ??F) 01/12/2024 10:[address] Respiratory Rate 16 11/16/2023 7:04 AM CDT Oxygen Saturation 99% 01/12/2024 10:50 AM SCISSORS GRINDER Inhaled Oxygen Concentration - - Weight 46 kg (101 lb 6.4 oz) 01/12/2024 10:50 AM SCISSORS GRINDER Height 156.2 cm (5' 1.5 ) 11/16/2023 7:04 AM CDT Body Mass Index 18.85 11/16/2023 7:04 AM CDT Plan of Treatment Not on file Medical Devices Implanted Type Area Solar Resource Assessor Device Identifier Shelf Expiration Date Model / Serial / Lot [employer] Lens Iol Posterior Biconvex Optic Single Piece Envista 6.0x12.5 +18.5d Hydrophobic Acrylic [id number] - [id number] - [id number] Implanted:Qty: 1 on 12/02/2021 by Addy Nguyen MD at [facility] Left: Eye [employer] [id number] 10/06/2023 [id number] / [id number] / Procedures Procedure Name Priority Date/Time Associated Diagnosis Comments SCAN - RADIOLOGY/IMAGING 03/11/2024 SCREENING MAMMOGRAM BILATERAL W HUSSAIN Schedule Routine, Read Routine (OP Routine) 02/01/2024 1:53 PM SCISSORS GRINDER Screening mammogram, encounter for DEXA AXIAL SKELETON BONE DENSITY 1 OR MORE SITES Schedule Routine, Read Routine (OP Routine) 01/25/2023 7:09 AM SCISSORS GRINDER Osteopenia of multiple sites STOOL DNA ? COLOGUARD Routine 09/12/2020 8:15 AM CDT Colon cancer screening HEPATITIS C ANTIBODY Routine 06/24/2015 9:37 AM CDT COLONOSCOPY Routine 06/17/2011 from Last 3 Months or Most Recently Relevant to Health Maintenance Results * SCAN - RADIOLOGY/IMAGING (03/11/2024) Anatomical Region Laterality Modality Other Beny Duff DO Final Result * Screening Mammogram Bilateral W Hussain (02/01/2024 1:53 PM SCISSORS GRINDER) Anatomical Region Laterality Modality Breast Bilateral Mammography Impressions 02/01/2024 4:45 PM SCISSORS GRINDER BI-RADS?? ATLAS category (overall): 1 - Negative There is no mammographic evidence of malignancy. A 1 year screening mammogram is recommended. The patient has been or will be contacted. We recommend annual screening mammography for women at average risk of breast cancer beginning at age 40, based on guidelines of the [place] [employer] (ACR Practice Parameter for the Performance of Screening and Diagnostic Mammography) and [place] [employer]nec[employer]. For women with and elevated risk of breast cancer, please refer to the ACR Practice Parameter for specific screening recommendations. The patient will be entered into a reminder system with a target due date of 1 year for her next screening exam. Narrative 02/01/2024 4:45 PM SCISSORS GRINDER Screening Mammogram Bilateral W Hussain: 02/01/24 The [...] breast. ??There has been no suspicious change. Self Screening Mammogram IMG MAMMO PROCEDURES Fi nal Result * Dexa Axial Skeleton Bone Density 1 or 2 Site (01/25/2023 7:09 AM SCISSORS GRINDER) Anatomical Region Laterality Modality Body N/A Mammography 01/25/2023 9:51 AM SCISSORS GRINDER Narrative 01/25/2023 9:52 AM SCISSORS GRINDER EXAM DESCRIPTION: DEXA AXIAL SKELETON BONE DENSITY 1 OR MORE SITES REASON FOR STUDY: 77 y/o ?? year old ??F ??with given history of: ??Postmenopausal status. ??Patient takes calcium. ? Solar Resource Assessor/Model: Brainiac TV A (S/N [id number]) CLINICAL INFORMATION: Current height: ??62 ??inches ? [...] AM T: ??01/25/2023 9:52 AM Report ID: [id number] Reading Location: ??[id number] Procedure Note Valencia Ritter MD - 01/25/2023 EXAM DESCRIPTION: DEXA AXIAL SKELETON BONE DENSITY 1 OR MORE SITES REASON FOR STUDY: 77 y/o year old F with given history of:Postmenopausal status. Patient takes calcium. Solar Resource Assessor/Model: Brainiac TV A (S/N [id number]) CLINICAL INFORMATION: Current height: 62 inches Maximum [...] Valencia Ritter M.D. TW: TW Report ID: [id number] Reading Location: [place] [address] Beau Clement MD IMFreddy DXA PROCEDURES F inal Result * Stool DNA - Cologuard (09/12/2020 8:15 AM CDT) Pathologist [facility] Stool DNA - Cologuard Negative Negative [facility] (CLIA #:[id number]) Comment: NEGATIVE TEST RESULT. A negative Cologuard [...] cancer. ??Following a negative Cologuard result, the [place] Cancer Society and U.S. Multi-Society Task Force screening guidelines recommend a Cologuard re-screening interval of 3 years. References: [place] Cancer Society Guideline for Colorectal Cancer Screening: https://www.cancer.org/cancer/jhsvs-xmubha-hsyrxp/owmwwtmcs-txeqgfhjo-wawfbvj/ac s-rec ommendations.html.; Jhon DK, Ezequiel CR, Arlette RodriguezK, Colorectal Cancer Screening: Recommendations for Physicians and Patients from the U.S. Multi-Society Task Force on Colorectal Cancer Screening , Am J Gastroenterology 2017; 112:2663-8093. TEST DESCRIPTION: Composite algorithmic analysis of stool [...] (Manuel Menendez al, N Engl J Med 2014;370(14):3284-7309.) Cologuard may produce a false negative or false positive result (no colorectal cancer or precancerous polyp present at colonoscopy follow up). A negative Cologuard test result does not guarantee the absence of CRC or advanced adenoma (pre-cancer). The current Cologuard screening interval is every 3 years. ([place] Cancer Society and U.S. Multi-Society Task Force). Cologuard performance data in a 10,000 patient pivotal study using colonoscopy as the reference method can be accessed at the following location: www.[employer]/results. Additional description of the Cologuard test process, warnings and precautions can be found at www.colvitalcliprd.com. Stool 09/12/2020 8:15 AM CDT 09/13/2020 2:57 PM CDT Beau Clement MD LAB BODY FLUIDS AND STOOLS ORDERABLES Final Result Performing Organization Address [facility] Co de Phone Number [employer] (CLIA #:[id number]) [place] [address] * Hepatitis C antibody (06/24/2015 9:37 AM CDT) Hep C Ab NONREACT NONREACTIVE 06/24/2015 2:26 PM CDT [facility] HISTORICAL RESULTS Comment: Siemens CentaurXP using PEPE (chemiluminescent immunoassay) technology. NONREACTIVE: Antibodies [...] AM CDT 06/24/2015 9:37 AM CDT Narrative [facility] [employer] HISTORICAL RESULTS - 06/24/2015 2:26 PM CDT PT FAST 12HR Katie Brunner MD LAB MICROBIOLOGY - GEN ERAL ORDERABLES Final Result Performing Organization Address [facility] Co de Phone Number [facility] [employer] HISTORICAL RESULTS * Colonoscopy (06/17/2011) Anatomical Region Laterality Modality Other Historical Provider ENDOSCOPY PROCEDURES Blanca l Result from Last 3 Months or Most Recently Relevant to Health Maintenance Insurance Advance Directives For more information, please contact: [phone] Documents on File Type Date Recorded Patient Edge Inker Expl anation ADVANCE DIRECTIVE 09/24/2023 3:22 PM POA - Medical Power of Steam Table Worker 04/02/2023 1:15 PM ADVANCE DIRECTIVE 01/22/2022 8:22 AM Lor r of Steam Table Worker-Medical Care Teams Seam Presser Relationship Specialty Start Date End Date Beau Clement MD [address] [place] [address] PCP - Essence Attributed PCP 03/08/17 Beau Clement MD [address] [place] [address] PCP - General Family Medicine 07/13/18
--- OUTSIDE RECORDS SUMMARY | 2024-03-18 22:40 | XMS_ITS | Encounter Summary ---
Author Organization [facility] Address [address] [place] [address] Phone Care Team Providers Care Oval Or Circular Glass Cutter Name Role Phone Beau Clement MD Unavailable [phone] Beau Clement MD Primary Care Provid er Encounter Details Date Type Department Care Team (Late st Contact Info) Description 10/09/2022 Telephone [facility] Ophthalmology [address] [facility] 6th [address], [address] [place] [address] Laila Paniagua, OD [address] [place] [address] Social History Tobacco Use Types Packs/Day Years [...] on file Legal Sex Female 8:34 AM SIDE GLUER Gender Identity Female 08/22/2019 6:09 AM CDT Sexual Orientation Straight 08/22/2019 6: 09 AM CDT documented as of this encounter Miscellaneous Notes * Telephone Encounter - Rosetta Suárez - 10/19/2022 9:36 AM CDT Lm for pt to call us back to reschedule her appointment. * Telephone Encounter - Rosetta Suárez - 10/09/2022 9:52 AM CDT Sent a RightSignature message and reschedule letter asking pt to call us back to reschedule her appointment. documented in this encounter Plan of Treatment Not on file documented as of this encounter Visit Diagnoses Not on filedocumented in this encounter Care Teams Oval Or Circular Glass Cutter Relationship Specialty Start Date End Date Beau Clement MD [address] [place] [address] PCP - Essence Attributed PCP 03/08/17 Beau Clement MD [address] [place] [address] PCP - General Family Medicine 07/13/18 documented as of this encounter
--- OUTSIDE RECORDS SUMMARY | 2024-03-18 22:40 | XMS_ITS | Encounter Summary ---
Author Organization [facility] Address [address] [place] [address] Phone Care Team Providers Care Assistant Strength Coach Name Role Phone Beau Clement MD Unavailable [phone] Beau Clement MD Primary Care Provid er Reason for Visit * Reason Comments Follow-up * Consultation (Routine) - Closed Specialty Diagnoses / Procedures Referred By Contac t Referred To Contact Ophthalmology Diagnoses Bilateral posterior capsular opacification Severe myopia of both eyes Presbyopia Beau Clement MD [address] [place] [address] Phone: tel: fax: Shelbi Adams MD [address] DEPT OPHTHALMOLOGY, [address] [address] Phone: tel: fax: Referral ID Status Reason Start Date Expiration Date V isits Requested Visits Authorized [id number] Closed Specialty Services Required 05/04/2022 05/05/2023 6 6 Encounter Details Date Type Department Care Team (Late st Contact Info) Description 07/30/2022 11:15 AM CDT Office Visit [facility] Ophthalmology [address] [facility] 2nd [address], [address] [place] [id number] Shelbi Adams MD [address] DEPT OPHTHALMOLOGY, [facility] [address] [place] [address] PCO (posterior capsular opacification), bilateral (Primary Dx); Retinal drusen of both eyes; Pseudophakia of both eyes Social History Tobacco Use [...] on file Legal Sex Female 8:34 AM OPERATING ROOM ASSISTANT Gender Identity Female 08/22/2019 6:09 AM CDT Sexual Orientation Straight 08/22/2019 6: 09 AM CDT documented as of this encounter Progress Notes * Shelbi Adams MD - 07/30/2022 11:15 AM CDT Assessment/Plan Diagnoses and all orders for this visit: PCO (posterior capsular opacification), bilateral (Primary) Assessment & Plan: Healed after YAG cap left eye (OS) [...] was then removed, the eye irrigated, and p ostop drops given. The patient left the laser suite in good condition and the intraocular pressure was checked 30 minutes post-op in the office. Retinal drusen of both eyes Assessment & Plan: May affect BCVA, but note that mac OCT is not that bad both eyes (OU). Pseudophakia of both eyes Assessment & Plan: Had CE/IOL OD at [facility]. Will obtain IOL records. 12/03/2021- phaco/ intraocular lens (IOL) left eye (OS)- ABarsam Will to change MRx after YAG cap right eye (OD). Return in about 4 weeks (around 08/27/2022), or if symptoms worsen or fail to improve, for POV with EGum/covering optom. Visual Acuity (Snellen - Linear) Right Left Dist cc 20/40 +1 20/50 +1 Dist ph cc NI 20/40 -1 Near sc - Correction: Glasses Tonometry Tonometry (Applanation, 12:05 PM) Right Left Pressure 17 16 Not recorded documented in this encounter Miscellaneous Notes * Assessment & Plan Note - Shelbi Adams MD - 07/30/2022 1:17 PM CDTAssociated Problem(s): Retinal drusen of both eyes May affect BCVA, but note that mac OCT is not that bad both eyes (OU). * Assessment & Plan Note - Jennifer Larose - 07/30/2022 11:09 AM CDTAssociated Problem(s): Pseudophakia of both eyes Had CE/IOL OD at [facility]. Will obtain IOL records. 12/03/2021- phaco/ intraocular lens (IOL) left eye (OS)- ABarsam Will to change MRx after YAG cap right eye (OD). * Assessment & Plan Note - Jennifer Larose - 07/30/2022 11:09 AM CDTAssociated Problem(s): PCO (posterior capsular opacification), bilateral Healed after YAG cap left eye (OS) [...] was then removed, the eye irrigated, and p ostop drops given. The patient left the laser suite in good condition and the intraocular pressure was checked 30 minutes post-op in the office. documented in this encounter Plan of Treatment Not on file documented as of this encounter Visit Diagnoses Diagnosis PCO (posterior capsular opacification), bilateral- Primary Unspecified after-cataract Retinal drusen of both eyes Pseudophakia of both eyes Lens replaced by other means documented in this encounter Eye Exam Visual Acuity (Snellen - Linear) Right eye Left eye Dist cc 20/40 +1 20/50 +1 Dist ph cc NI 20/40 -1 Near sc - Correction: Glasses Tonometry (Applanation, 12:05 PM) Right eye Left eye Pressure 17 16 Pupils Dark Light Shape React APD Right eye 4 3.5 Round Slow None Left eye 3.5 2.5 Round Slow None Visual Torres Right eye Left eye Full Extraocular Movement Right eye Left eye Full Full Neuro/Psych Oriented x3: Yes Mood/Affect: Normal Dilation Right eye: 1.0% Mydriacyl, 2 .5% Phenylephrine @ 12:28 PM Glare Testing High Right eye 20/60 Left eye External Exam Right eye Left eye External Normal Normal Slit Lamp Exam Right eye Left eye Lids/Lashes Normal Normal Conjunctiva/Sclera White and quiet White and rodney et Cornea Clear Clear Anterior Chamber Deep and quiet Deep and quiet Iris Round and reactive Round and deuce ctive Lens PCIOL, 2+ PCO PCIOL in good po sition, 2+ PCO Anterior Vitreous Normal Fundus Exam Right eye Left eye Disc flat, mild blurred margins but n o elevation C/D Ratio 0.15 Macula central drusen, no mac heme Vessels Normal Periphery Normal Wearing Rx Sphere Cylinder [place] Add Right eye -0.75 +0.75 164 +2.00 Left eye -0.75 +0.75 008 +2.00 Age: 7 yrs Type: PAL Manifest Refraction Sphere Cylinder [place] Dist VA Add Near VA Right eye [place] +0.75 030 20/40+2 +2.75 J1+ Left eye -1.00 +1.00 180 20/25-1 +2.75 J1+ Care Teams Assistant Strength Coach Relationship Specialty Start Date End Date Beau Clement MD [address] [place] [address] PCP - Essence Attributed PCP 03/08/17 Beau Clement MD [address] [facility] [place] [address] PCP - General Family Medicine 07/13/18 documented as of this encounter
--- OUTSIDE RECORDS SUMMARY | 2024-03-18 22:40 | XMS_ITS | Encounter Summary ---
Author Organization [facility] Healthcare Address [address] [place] [address] Care Team Providers Care Color Matcher Name Role Phone Beau Clement MD Unavailable [phone]- [phone] Beau Clement MD Primary Care Provid er Encounter Details Date Type Department Care Team (Late st Contact Info) Description 01/13/2023 11:00 AM TECHNICAL SUPPORT 1 SOFTWARE ENGINEER Office Visit [facility] [address] [facility] [address] [address] Beny Guillaume MD PhD [address] [place] [address] [address], [place] [id number] Mild late onset Alzheimer's dementia without behavioral disturbance, psychotic disturbance, mood disturbance, or anxiety (HCC) (Primary Dx) Social History Tobacco Use Types [...] on file Legal Sex Female 8:34 AM TECHNICAL SUPPORT 1 SOFTWARE ENGINEER Gender Identity Female 08/22/2019 6:09 AM CDT Sexual Orientation Straight 08/22/2019 6: 09 AM CDT documented as of this encounter Last Filed Vital Signs Vital Sign Reading Time Taken Comments Blood Pressure 142/76 01/13/2023 10:48 AM TECHNICAL SUPPORT 1 SOFTWARE ENGINEER Pulse 69 01/13/2023 10:48 AM TECHNICAL SUPPORT 1 SOFTWARE ENGINEER Temperature - - Respiratory Rate - - Oxygen Saturation 96% 01/13/2023 10:48 AM TECHNICAL SUPPORT 1 SOFTWARE ENGINEER Inhaled Oxygen Concentration - - Weight 43.5 kg (96 lb) 01/13/2023 10:48 AM TECHNICAL SUPPORT 1 SOFTWARE ENGINEER Height 156.2 cm (5' 1.5 ) 01/13/2023 10:48 AM CS T Body Mass Index 17.85 01/13/2023 10:48 AM TECHNICAL SUPPORT 1 SOFTWARE ENGINEER documented in this encounter Ordered Prescriptions Prescription Sig Dispense Quantity Refills Last Filled Start Date End Date memantine (NAMENDA) 10 mg tabletIndications: Moderate to Severe Alzheimer's Type Dementia Take 1 tablet (10 mg total) by mouth 2 (two) times a day 60 tablet 11 01/13/2023 4 memantine (NAMENDA TITRATION PACK) tablet pack 5 mg/day for =1 week; 5 mg twice daily for =1 week; 15 mg/day given in 5 mg and 10 mg doses for =1 week; then 10 mg twice daily 49 tablet 01/13/2023 4 documented in this encounter Progress Notes * Beny Guillaume MD PhD - 01/13/2023 11:00 AM CST Images from the original note were not included. Progress Note Patient: Dottie Bryant ( - 1945) is a 77 y.o. female. Visit Date: 01/13/2023 Interval history: This patient is seen in follow-up for dementia of the Alzheimer's type. She is been on donepezil 10milligrams daily the past year. Her says she has been less irritable since they got a puppyfor her. She does not exercise except for walking the dog. She works in the yard some. She is difficulty reading. Her takes care of putting out her medications. She has some difficulty getting dressed and he has to help with that at times. She is resistant to bathing and at times will go two weeks without a shower or bath. There have been no hallucinations. Past Medical History: Past Medical History: Diagnosis Date Dyslipidemia Hypertension [...] CAPSULE BY MOUTH TWICE A DAY, Disp: 90 capsule, Rfl: 3 ibandronate (BONIVA) 150 mg tablet, TAKE 1 TABLET EVERY 30 DAYS TAKE IN AM WITH GLASS OF WATER PRIOR TO FOOD, DON'T LIE DOWN X30 MINUTES, Disp: 3 tablet, Rfl: 1 metoprolol XL (TOPROL-XL) 25 mg extended release tablet, TAKE 1 TABLET BY MOUTH EVERY DAY, Disp: 90tablet, Rfl: 2 memantine (NAMENDA TITRATION PACK) tablet pack, 5 mg/day for =1 week; 5 mg twice daily for =1 week;15 mg/day given in 5 mg and 10 mg doses for =1 week; then 10 mg twice daily, Disp: 49 tablet, Rfl: 0 memantine (NAMENDA) 10 mg tablet, Take 1 tablet (10 mg total) by mouth 2 (two) times a day, Disp: 60 tablet, Rfl: 11 Physical Exam: Vitals: 01/13/23 1048 BP: 142/76 BP Location: Left arm Patient Position: Sitting Pulse: 69 SpO2: 96% Weight: 43.5 kg (96 lb) Height: 156.2 cm (5' 1.5 ) She requires two trials to register a five word memory phrase. She scores 26 on a Short blessed test. Language: Fluent. Affect Normal. Cranial nerves: 2-12 are examined and are normal Motor examination: No drift. Fine finger movements are performed normally. Normal bulk, strength and tone. No involuntary movements seen. Sensory: Normal soft touch and pinprick. Coordination: [id number] testing and rapid alternating movements performed symmetrically. Deep tendon reflexes: 1+ at the brachioradialis, biceps and triceps. 2+ at the knees. Gait: Normal station and gait. Radiology: Assessment and Plan: Senile dementia of the Alzheimer's type. Continue donepezil 10 milligrams daily. Add memantine and titrate up to 10 milligrams bid. Common adverse side effects and reasonable expectations were discussed. We will also put through a referral to [facility] I suggested that her check the Alzheimer's Disease Foundation website for additional resources. Follow-up in one year. My total encounter time on 01/13/2023 was 35 minutes which was spent in the activities documented inthe note. This includes time spent prior to the visit and after the visit in direct care of the patient. This time does not include time spent in any separately reportable services. Diagnoses and all orders for this visit: Mild late onset Alzheimer's dementia without behavioral disturbance, psychotic disturbance, mood disturbance, or anxiety (HCC) (Primary) Other orders - memantine (NAMENDA TITRATION PACK) tablet pack; 5 mg/day for =1 week; 5 mg twice daily for =1 week; 15 mg/day given in 5 mg and 10 mg doses for =1 week; then 10 mg twice daily - memantine (NAMENDA) 10 mg tablet; Take 1 tablet (10 mg total) by mouth 2 (two) times a day 01/13/2023 3:07 PM Dictation completed by [employer] software. Adjunct Faculty variances may occur. Beny Guillaume M.D., Ph.D. NICAL SUPPORT 1 SOFTWARE ENGINEER documented in this encounter Plan of Treatment Not on file documented as of this encounter Visit Diagnoses Diagnosis Mild late onset Alzheimer's dementia without behavioral disturbance, psychotic disturbance, mood disturbance, or anxiety (HCC)- Primary documented in this encounter Discontinued Medications Medication Sig Discontinue Reason Start Date End Da te DULoxetine DR (CYMBALTA) 30 mg capsule Take 1 capsule (30 mg total) by mouth 2 (two) times a day Therapy completed 02/13/2022 01/13/2023 documented as of this encounter Care Teams Color Matcher Relationship Specialty Start Date End Date Beau Clement MD [address] [place] [address] PCP - Essence Attributed PCP 03/08/17 Beau Clement MD [address] [place] [address] PCP - General Family Medicine 07/13/18 documented as of this encounter
--- OUTSIDE RECORDS SUMMARY | 2024-03-18 22:40 | XMS_ITS | Encounter Summary ---
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 Gender Identity Female 08/22/2019 6:09 AM CDT Sexual Orientation Straight 08/22/2019 6: 09 AM CDT documented as of this encounter Plan of Treatment Not on file documented as of this encounter Procedures Procedure Name Priority Date/Time Associated Diagnosis Comments EGFR Routine 11/09/2023 8:43 AM CDT Encounter for Medicare annual wellness exam Dyslipidemia DIFFERENTIAL AUTO Routine 11/09/2023 8:4 3 AM CDT Encounter for Medicare annual wellness exam Essential (primary) hypertension CBC WITH AUTO DIFFERENTIAL Routine 11/09/2023 8:43 AM CDT Encounter for Medicare annual wellness exam Essential (primary) hypertension VITAMIN D 25 HYDROXY Routine 11/09/2023 8:43 AM CDT Vitamin D deficiency LIPID PANEL Routine 11/09/2023 8:43 AM CDT Encounter for Medicare annual wellness exam Dyslipidemia COMPREHENSIVE METABOLIC PANEL Routine 11/09/2023 8:43 AM CDT Encounter for Medicare annual wellness exam Dyslipidemia documented in this encounter Results * eGFR (11/09/2023 8:43 AM CDT) eGFR 66 >=60 mL/min/1. 73 m2 Comment: Interpretive Data Reference Interval Normal ?>/= [...] of Race in Diagnosing Kidney Disease, JASN 202). The CKD-EPI equation should not be used for patients with unstable renal function and has not been validated in children and those over 70. Current interpretive data was last reviewed 2021. Testing performed by: [address] [address] Blood 11/09/2023 8:43 AM CDT 11/09/2023 9:03 AM CDT us Beau Clement MD LAB BLOOD ORDERABLES Final Result [facility] [address] [facility] Department [place] [address] * Differential, auto (11/09/2023 8:43 AM CDT) Pathologist [facility] Neutrophil abs 5.0 1.5 - 6.5 K/cumm Comment:Testing performed by : [address] [address] Imm gran abs 0.0 0.0 - 0.1 K/cumm [facility] Comment:Testing performed by : [address] [address] Lymphocyte abs 1.7 0.8 - 3.3 K/cumm [facility] Comment:Testing performed by : [address] [address] Monocyte abs 0.8 0.2 - 0.8 K/cumm [facility] Comment:Testing performed by : [address] [address] Eosinophil abs 0.4 0.0 - 0.5 K/cumm [facility] Comment:Testing performed by : [address] [address] Basophil abs 0.1 0.0 - 0.1 K/cumm [facility] Comment:Testing performed by : [address] [address] Neutrophil pct 62.8 % [facility] Comment: Interpretive Data Percent cell count reference ranges are not reported, since discordance with absolute values may lead to misinterpretation of CBC data. Current Interpretive Data was last revised on 2017. Testing performed by: [address] [address] Imm gran pct 0.2 % [facility] Comment: Interpretive Data Percent cell count reference ranges are not reported, since discordance with absolute values may lead to misinterpretation of CBC data. Current Interpretive Data was last revised on 2017. Testing performed by: [address] [address] Lymphocyte pct 21.2 % [facility] Comment: Interpretive Data Percent cell count reference ranges are not reported, since discordance with absolute values may lead to misinterpretation of CBC data. Current Interpretive Data was last revised on 2017. Testing performed by: [address] [address] Monocyte pct 9.8 % [facility] Comment: Interpretive Data Percent cell count reference ranges are not reported, since discordance with absolute values may lead to misinterpretation of CBC data. Current Interpretive Data was last revised on 2017. Testing performed by: [address] [address] Eosinophil pct 4.8 % [facility] Comment: Interpretive Data Percent cell count reference ranges are not reported, since discordance with absolute values may lead to misinterpretation of CBC data. Current Interpretive Data was last revised on 2017. Testing performed by: [address] [address] Basophil pct 1.2 % [facility] Comment: Interpretive Data Percent cell count reference ranges are not reported, since discordance with absolute values may lead to misinterpretation of CBC data. Current Interpretive Data was last revised on 2017. Testing performed by: [address] [address] Blood 11/09/2023 8:43 AM CDT 11/09/2023 9:02 AM CDT Beau Clement MD LAB BLOOD ORDERABLES Final Result [facility] [address] [facility] Department [place] [address] * (ABNORMAL) CBC with auto differential (11/09/2023 8:43 AM CDT) [facility] Signature WBC 8.1 3.8 - 9.9 K/cumm Comment:Testing performed by : [address] [address] Hgb 13.2 11.9 - 15.5 g/dL [facility] Comment:Testing performed by : [address] [address] Hct 41.8 35.6 - 45.5 % [facility] Comment:Testing performed by : [address] [address] Plt 314 150 - 400 K/cumm [facility] Comment:Testing performed by : [address] [address] MPV 8.9(L) 9.1 - 12.3 fL [facility] Comment:Testing performed by : [address] [address] RBC 4.19 3.90 - 5.20 M/cumm [facility] Comment:Testing performed by : [address] [address] MCV 99.8(H) 81.3 - 96.4 fL [facility] Comment:Testing performed by : [address] [address] MCH 31.5 27.1 - 33.3 pg [facility] Comment:Testing performed by : [address] [address] MCHC 31.6(L) 32.3 - 35.7 g/dL [facility] Comment:Testing performed by : [address] [address] RDW CV 12.7 11.1 - 14.9 % [facility] Comment:Testing performed by : [address] [address] RDW SD 46.6 35.7 - 48.1 fL [facility] Comment:Testing performed by : [address] [address] NRBC abs 0.00 0.00 - 0.01 K/cumm [facility] Comment:Testing performed by : [address] [address] Blood 11/09/2023 8:43 AM CDT 11/09/2023 9:02 AM CDT Beau Clement MD LAB BLOOD ORDERABLES Final Result [facility] [address] [facility] Department [place] [address] * Comprehensive metabolic panel (11/09/2023 8:43 AM CDT) Sodium 143 135 - 145 mmol/L Comment:Testing performed by : [address] [address] Potassium, pl 4.6 3.3 - 4.9 mmol/L [facility] Comment:Testing performed by : [address] [address] Chloride 105 97 - 110 mmol/L [facility] Comment:Testing performed by : [address] [address] CO2 27 22 - 32 mmol/L [facility] Comment:Testing performed by : [address] [address] Anion gap 11 2 - 15 mmol/L [facility] Comment:Testing performed by : [address] [address] BUN 12 6 - 25 mg/dL [facility] Comment:Testing performed by : [address] [address] Creatinine 0.90 0.60 - 1.10 mg/dL [facility] Comment:Testing performed by : [address] [address] Glucose 94 70 - 199 mg/dL [facility] [...] was last revised 2022. Testing performed by: [address] [address] Calcium 9.9 8.5 - 10.3 mg/dL [facility] Comment:Testing performed by : [address] [address] Bilirubin, total 0.5 0.1 - 1.2 mg/dL [facility] Comment:Testing performed by : [address] [address] Protein, pl 7.5 6.5 - 8.5 g/dL [facility] Comment:Testing performed by : [address] [address] Albumin 4.0 3.5 - 5.0 g/dL [facility] Comment:Testing performed by : [address] [address] Alk phos 61 40 - 130 Units/L [facility] Comment:Testing performed by : [address] [address] ALT 22 7 - 45 Units/L [facility] Comment:Testing performed by : [address] [address] AST 28 10 - 45 Units/L [facility] Comment:Testing performed by : [address] [address] Blood 11/09/2023 8:43 AM CDT 11/09/2023 9:03 AM CDT Beau Clement MD LAB BLOOD ORDERABLES Final Result [facility] [address] [facility] Department of Laboratories [place], [place] [phone] * Lipid panel (11/09/2023 8:43 AM CDT) [facility] Signature Cholesterol 184 30 - 199 mg/dL Comment: [...] last revised on 2017. Testing performed by: [facility], [address] [place] [address]., [address] Triglycerides 65 <=149 mg/dL [facility] Comment: Interpretive [...] last revised on 2017. Testing performed by: [address] [address] HDL 105 >=40 mg/dL [facility] Comment: Interpretive [...] last revised on 2017. Testing performed by: [address] [address] LDL, calculated 67 <=129 mg/dL [facility] Comment: Interpretive Data Ages < [...] NCEP Expert Panel. Circulation 2004;110:227 3. Raul Enciso al. SHERRY Cardiol. 2020 July 06;5(5):540-548. doi: 10.1001/jamacardio.2020.0013 Current Interpretive Data was last revised on 2023. Testing performed by: [address] [address] Non-HDL Cholesterol 79 mg/dL [facility] FLORES Comment: [...] last revised on 2017. Testing performed by: [address] [address] Chol/HDL ratio 2 [facility] Comment:Testing performed by : [address] [address] Blood 11/09/2023 8:43 AM CDT 11/09/2023 9:03 AM CDT Beau Clement MD LAB BLOOD ORDERABLES Final Result Performing Organization Address [facility] Co de Phone Number [facility] [place] [address] * Vitamin D 25 hydroxy (11/09/2023 8:43 AM CDT) [facility] Vitamin D 25-OH 40.0 30.0 - 80.0 ng/mL Blood 11/09/2023 8:43 AM CDT 11/09/2023 10:26 AM CDT Beau Clement MD LAB BLOOD ORDERABLES Final Result Performing Organization Address [facility] Co de Phone Number [facility] [address] [facility] [place] [address] documented in this encounter Visit Diagnoses Diagnosis Vitamin D deficiency Encounter for Medicare annual wellness exam Dyslipidemia Other and unspecified hyperlipidemia Essential (primary) hypertension Unspecified essential hypertension documented in this encounter Care Teams Metal Machine Operator Relationship Specialty Start Date End Date Beau Clement MD [address] [place] [address] PCP - Essence Attributed PCP 03/08/17 Beau Clement MD [address] [place], [place] [id number] PCP - General Family Medicine 07/13/18 documented as of this encounter
--- OUTSIDE RECORDS SUMMARY | 2024-03-18 22:40 | XMS_ITS | Encounter Summary ---
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 Reason for Visit * Diagnostic Imaging (Routine) - Closed Specialty Diagnoses / Procedures Referred By Contac t Referred To Contact Diagnoses Screening mammogram, encounter for Procedures Screening Mammogram Bilateral W Mauricio Screening Mammogram, Self Referral ID Status Reason Start Date Expiration Date Visits Re quested Visits Authorized [id number] Closed 12/01/2023 12/30/2024 1 1 Encounter Details Date Type Department Care Team (Latest Contact Info) Description 02/01/2024 1:24 PM 3 YEAR OLDS PRESCHO[employer] TE[employer]ER - 02/01/2024 11:59 PM 3 YEAR OLDS PRESCHO[employer] TEACHER Hospital Encounter [facility] Breast Imaging [address] [place] [phone] Screening mammogram, encounter for Discharge Disposition: [...] on file 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 Gender Identity Female 08/22/2019 6:09 AM CDT Sexual Orientation Straight 08/22/2019 6: 09 AM CDT documented as of this encounter Medications at Time of Discharge aspirin 81 mg enteric coated tabletIndications :heart health Take 1 tablet (81 mg total) by mouth every morning atorvastatin (LIPITOR) 40 mg tablet TAKE 1 TABLET BY MOUTH EVERY DAY 90 tablet 3 01/24/2024 calcium carbonate/vitamin D3 (CALCIUM 500 + D ORAL)Indications: supplement Take 1 tablet by mouth every morning donepeziL (ARICEPT) 10 mg tablet TAKE 1 TABLET BY MOUTH EVERY DAY AT NIGHT 90 tablet 3 11/15/2023 gabapentin (NEURONTIN) 100 mg capsule TAKE 1 CAPSULE BY MOUTH TWICE A DAY 100 capsule 1 12/07/2023 ibandronate (BONIVA) 150 mg tabletIndications :Osteopenia of both hips TAKE 1 TABLET EVERY 30 DAYS TAKE IN AM WITH GLASS OF WATER PRIOR TO FOOD, DON'T LIE DOWN X30 MINUTES 3 tablet 1 12/27/2023 memantine (NAMENDA) 10 mg tablet TAKE 1 TABLET BY MOUTH TWICE A DAY 180 tablet 3 01/27/2024 metoprolol XL (TOPROL-XL) 25 mg extended release tablet TAKE 1 TABLET BY MOUTH EVERY DAY 90 tablet 2 12/06/2023 documented as of this encounter Discharge Disposition Disposition Code Departure Means Destination Discharge to home or self care documented in this encounter Plan of Treatment Not on file documented as of this encounter Procedures Procedure Name Priority Date/Time Associated Diagnosis Comments SCREENING MAMMOGRAM BILATERAL W MAURICIO Schedule Routine, Read Routine (OP Routine) 02/01/2024 1:53 PM 3 YEAR OL[employer]CHO[employer] TE[employer]ER Screening mammogram, encounter for documented in this encounter Results * Screening Mammogram Bilateral W Mauricio (02/01/2024 1:53 PM 3 YEAR OLDS PRESCHO[employer] TEACHER) Anatomical Region Laterality Modality Breast Bilateral Mammography Impressions 02/01/2024 4:45 PM 3 YEAR OLDS PRESCHOOL TEACHER BI-RADS?? ATLAS category (overall): 1 - Negative There is no mammographic evidence of malignancy. A 1 year screening mammogram is recommended. The patient has been or will be contacted. We recommend annual screening mammography for women at average risk of breast cancer beginning at age 40, based on guidelines of the [place] [employer] (ACR Practice Parameter for the Performance of Screening and Diagnostic Mammography) and [place] [employer]. For women with and elevated risk of breast cancer, please refer to the ACR Practice Parameter for specific screening recommendations. The patient will be entered into a reminder system with a target due date of 1 year for her next screening exam. Narrative 02/01/2024 4:45 PM 3 YEAR OLDS PRESCHO[employer] TEACHER Screening Mammogram Bilateral W Mauricio: 02/01/24 The study was acquired using full [...] cancer. COMPARISONS: 12/06/2020 Screening Mammogram Bilateral W Mauricio 11/23/2018 Screening Mammogram 2D Bilateral 03/18/2016 Screening Mammogram Bilateral W Mauricio BREAST TISSUE: There are scattered areas of fibroglandular density. FINDINGS: No suspicious masses, suspicious calcifications, or other suspicious findings are seen within either breast. ??There has been no suspicious change. us Self Screening Mammogram IMG MAMMO PROCEDURES Fi nal Result documented in this encounter Visit Diagnoses Diagnosis Screening mammogram, encounter for documented in this encounter Care Teams Wood Scaler Relationship Specialty Start Date End Date Beau Clement MD [address] [place] [id number] PCP - Essence Attributed PCP 03/08/17 Beau Clement MD [address] [place] [address] PCP - General Family Medicine 07/13/18 documented as of this encounter
--- OUTSIDE RECORDS SUMMARY | 2024-03-18 22:40 | XMS_ITS | Encounter Summary ---
Author Organization [facility] Address [address] [facility] [address] [place] [address] Care Team Providers Care Speeder Machine Operator Name Role Phone Beau Clement MD Unavailable +- [phone] Beau Clement MD Primary Care Provid er Encounter Details Date Type Department Care Team (Late st Contact Info) Description 09/07/2022 Orders Only [facility] Family Medicine [address] [address] Beau Clement MD [address] [address] Essential (primary) hypertension (Primary Dx); Dyslipidemia Social History Tobacco Use Types Packs/Day [...] on file 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 Current interpretive data was last revised 2018. Testing performed by: [address] [address] Creatinine Ur 56.4 mg/dL [facility] Comment: Interpretive Data No reference range established. Current interpretive data was last revised 2018. Testing performed by: [address] [address] Albumin Creatinine Ratio, Ur <21 1 - 29 mg/g [facility] Comment:Testing performed by : [address] [address] Urine 11/20/2022 9:18 AM CDT 11/20/2022 2:33 PM CDT us Beau Clement MD LAB URINE ORDERABLES Final Result [facility] [address] [facility] [place] [address] * (ABNORMAL) CBC with auto differential (11/20/2022 9:18 AM CDT) WBC 6.6 3.8 - 9.9 K/cumm [facility] Comment:Testing performed by : [address] [address] Hgb 12.4 11.9 - 15.5 g/dL [facility] Comment:Testing performed by : [address] [address] Hct 38.4 35.6 - 45.5 % [facility] Comment:Testing performed by : [address] [address] Plt 401(H) 150 - 400 K/cumm [facility] Comment:Testing performed by : [address] [address] MPV 8.9(L) 9.1 - 12.3 fL [facility] Comment:Testing performed by : [address], [address] RBC 3.80(L) 3.90 - 5.20 M/cumm [facility] Comment:Testing performed by : [address] [address] MCV 101.1(H) 81.3 - 96.4 fL [facility] Comment:Testing performed by : [address] [address] MCH 32.6 27.1 - 33.3 pg [facility] Comment:Testing performed by : [address] [address] MCHC 32.3 32.3 - 35.7 g/dL [facility] Comment:Testing performed by : [address], [address] RDW CV 13.4 11.1 - 14.9 % [facility] Comment:Testing performed by : [address], [address] RDW SD 50.0(H) 35.7 - 48.1 fL [facility] Comment:Testing performed by : [address], [address] NRBC abs 0.00 0.00 - 0.01 K/cumm [facility] Comment:Testing performed by : [address] [address] Blood 11/20/2022 9:18 AM CDT 11/20/2022 10:27 AM CDT us Beau Clement MD LAB BLOOD ORDERABLES Final Result [facility] [address] [facility] [place] [address] * Comprehensive metabolic panel (11/20/2022 9:18 AM CDT) Sodium 140 135 - 145 mmol/L [facility] Comment:Testing performed by : [address] [address] Potassium, pl 4.1 3.3 - 4.9 mmol/L [facility] Comment:Testing performed by : [address] [address] Chloride 101 97 - 110 mmol/L [facility] Comment:Testing performed by : [address] [address] CO2 28 22 - 32 mmol/L [facility] Comment:Testing performed by : [address] [address] Anion gap 11 2 - 15 mmol/L [facility] Comment:Testing performed by : [address] [address] BUN 10 6 - 25 mg/dL [facility] Comment:Testing performed by : [address] [address] Creatinine 0.70 0.60 - 1.10 mg/dL [facility] Comment:Testing performed by : [address] [address] Glucose 98 70 - 199 mg/dL [facility] [...] classification and Diagnosis of Diabetes Diabetes Care 202; 46: S19-S40. Current interpretive data was last revised 2022. Testing performed by: [facility], [address] [place] [address]., [address] Calcium 10.0 8.5 - 10.3 mg/dL [facility] Comment:Testing performed by : [address] [address] Bilirubin, total 0.5 0.1 - 1.2 mg/dL [facility] Comment:Testing performed by : [address] [address] Protein, pl 7.3 6.5 - 8.5 g/dL [facility] Comment:Testing performed by : [address] [address] Albumin 3.8 3.5 - 5.0 g/dL [facility] Comment:Testing performed by : [address] [address] Alk phos 67 40 - 130 Units/L [facility] Comment:Testing performed by : [address] [address] ALT 12 7 - 45 Units/L [facility] Comment:Testing performed by : [address] [address] AST 23 10 - 45 Units/L [facility] Comment:Testing performed by : [address] [address] Blood 11/20/2022 9:18 AM CDT 11/20/2022 10:26 AM CDT Beau Clement MD LAB BLOOD ORDERABLES Final Result [facility] [address] [facility] [place] [address] * Lipid panel (11/20/2022 9:18 AM CDT) Cholesterol 186 30 - 199 mg/dL [facility] [...] last revised on 2017. Testing performed by: [address] [address] Triglycerides 63 <=149 mg/dL [facility] Comment: Interpretive Data Ages [...] last revised on 2017. Testing performed by: [address] [address] HDL 105 >=40 mg/dL [facility] Comment: Interpretive Data Ages [...] last revised on 2017. Testing performed by: [address] [address] LDL, calculated 68 <=129 mg/dL [facility] Comment: Interpretive Data Ages < or = [...] last revised on 2017. Testing performed by: [address] [address] Non-HDL Cholesterol 81 mg/dL [facility] Comment: Interpretive Data Ages < or = [...] last revised on 2017. Testing performed by: [facility], [address] [place] [address]., [address] Chol/HDL ratio 2 [facility] Comment:Testing performed by : [facility], [address] [place] [address]., [address] Blood 11/20/2022 9:18 AM CDT 11/20/2022 10:26 AM CDT us Beau Clement MD LAB BLOOD ORDERABLES Final Result [facility] [address] [facility] [place] [address] documented in this encounter Visit Diagnoses Diagnosis Essential (primary) hypertension- Primary Unspecified essential hypertension Dyslipidemia Other and unspecified hyperlipidemia documented in this encounter Care Teams Speeder Machine Operator Relationship Specialty Start Date End Date Beau Clement MD [address] [place] [address] PCP - Essence Attributed PCP 03/08/17 Beau Clement MD [address] [place], [place] [address] PCP - General Family Medicine 07/13/18 documented as of this encounter
--- OUTSIDE RECORDS SUMMARY | 2024-03-18 22:41 | XMS_ITS | Encounter Summary ---
Author Organization [facility] Address [address] [place] [address] Phone Care Team Providers Care Dentist Name Role Phone Beau Clement MD Unavailable [phone]- [phone] Beau Clement MD Primary Care Provid er Encounter Details Date Type Department Care Team (Late st Contact Info) Description 12/03/2021 8:20 AM CDT Office Visit [facility] Ophthalmology [address] [place] [address] 1st [place] [address] Gum, Roslyn, OD [address] [place] [address] S/P cataract extraction and insertion of intraocular lens, left (Primary Dx) Social History Tobacco Use Types [...] on file 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 Gender Identity Female 08/22/2019 6:09 AM CDT Sexual Orientation Straight 08/22/2019 6: 09 AM CDT documented as of this encounter Patient Instructions * Patient Instructions* Roslyn Bagley, JADYN - 12/03/2021 8:20 AM CDT Drops: Ofloxacin (denson top): 4 times per day left eye Prednisolone (pink or white top): 4 times per day left eye Tape shield at night over left eye for 1 week No bending over, lifting >15lbs, avoid hot tubs/swimming pools x 2 weeks documented in this encounter Progress Notes * Roslyn Bagley, JADYN - 12/03/2021 8:20 AM CDT Assessment and Plan Problem List Eye/Vision Problems S/P cataract extraction and insertion of intraocular lens, left - Primary Current Assessment & Plan POD #1 s/p CE/PCIOL OS - Doing well. No significant concerns. - Prednisolone QID - Ofloxacin QID - Reviewed signs/symptoms endophthalmitis, retinal tear and detachment; patient to call immediatelyif any worsening vision, pain, redness, flashes/floaters/curtains - No lifting, bending, or swimming - Metzger shield while sleeping, protective eyewear during day. RTC POW#1 OS. Follow Up: Return for POW1 . Roslyn Bagley, OD documented in this encounter Miscellaneous Notes * Assessment & Plan Note - Roslyn Bagley OD - 12/03/2021 9:33 AM CDTAssociated Problem(s): S/P cataract extraction and insertion of intraocular lens, left (Resolved 05/21/2022) POD #1 s/p CE/PCIOL OS - Doing well. No significant concerns. - Prednisolone QID - Ofloxacin QID - Reviewed signs/symptoms endophthalmitis, retinal tear and detachment; patient to call immediatelyif any worsening vision, pain, redness, flashes/floaters/curtains - No lifting, bending, or swimming - Metzger shield while sleeping, protective eyewear during day. RTC POW#1 OS. documented in this encounter Plan of Treatment Not on file documented as of this encounter Visit Diagnoses Diagnosis S/P cataract extraction and insertion of intraocular lens, left- Primary documented in this encounter Eye Exam Visual Acuity (Snellen - Linear) Right eye Left eye Dist sc 20/50 Dist ph sc 20/40 -1 Tonometry (Tonopen, 8:41 AM) Right eye Left eye Pressure 24 Pupils Pupils Right eye PERRL Left eye PERRL Neuro/Psych Oriented x3: Yes Mood/Affect: Normal External Exam Right eye Left eye External Normal Normal Slit Lamp Exam Right eye Left eye Lids/Lashes Normal Conjunctiva/Sclera EVELINA temporal Cornea trace edema, wou nds mckay negative Anterior Chamber Deep, 3+ mixed cell Iris Round and reacti ve Lens PCIOL in good po sition Fundus Exam Right eye Left eye Disc Perfused C/D Ratio .2 Macula central drusen Care Teams Dentist Relationship Specialty Start Date End Date Beau Clement MD [address] [place] [address] PCP - Essence Attributed PCP 03/08/17 Beau Clement MD [address] [place] [address] PCP - General Family Medicine 07/13/18 documented as of this encounter
--- OUTSIDE RECORDS SUMMARY | 2024-03-18 22:41 | XMS_ITS | Encounter Summary ---
Author Organization [facility] Address [address] [facility] [address] [place] [address] Care Team Providers Care Conveyor Line Bakery Worker Name Role Phone Beau Clement MD Unavailable +- [phone] Beau Clement MD Primary Care Provid er Reason for Visit * Reason Onset Date Comments Back Pain 02/09/2022 Encounter Details Date Type Department Care Team (Late st Contact Info) Description 02/09/2022 Nurse Triage [facility] Family Medicine [address] [address] Beau Clement MD [address] [address] Social History Tobacco Use Types [...] on file Legal Sex Female 8:34 AM SOLUTIONS DEVELOPER Gender Identity Female 08/22/2019 6:09 AM CDT Sexual Orientation Straight 08/22/2019 6: 09 AM CDT documented as of this encounter Miscellaneous Notes * Telephone Encounter - Afia Verma RN - 02/09/2022 12:01 PM SOLUTIONS DEVELOPER Dottie Bryant's , Abhishek, on HIPAA, with pt, calling reporting pt used to go to pain management for lower back issues. Lower abd pain started yesterday, today pain in lower back. PM doctor is no longer at practice. Used to get steroid injections in back. No fever or urine symptoms. No abdpain today. Yesterday pt thought this was a bladder infection because of the low abd pain but states this has been the way this happens in the past with back issues. Pt is reporting having left groin pain today, throbbing pain and pain in front and left side. No numbness in groin or rectum. PCP/STATION INSTALLATION SUPERVISOR contacted via secure chat for ED disposition consult. Recommendation from provider:Proceed to ED, will likely need imaging. RN advised pt and and they verbalized understanding, will gonow. Reason for Disposition Pain radiates into groin, scrotum Protocols used: Back [id number] TIONS DEVELOPER * Telephone Encounter - Afia Verma RN - 02/09/2022 11:57 AM SOLUTIONS DEVELOPER Regarding: severe back pain ----- Message from Berenice Naik sent at 02/09/2022 11:23 AM SOLUTIONS DEVELOPER ----- Symptom Based Call Chief Complaint: severe back pain Did you review 911/Red Flag List?Yes Duration: today Why was appointment not scheduled? Red flag symptoms Caller's Callback #: [phone] Additional Comments: see above Does message need to be routed? Yes-Action Needed TIONS DEVELOPER documented in this encounter Plan of Treatment Not on file documented as of this encounter Visit Diagnoses Not on filedocumented in this encounter Care Teams Conveyor Line Bakery Worker Relationship Specialty Start Date End Date Beau Clement MD [address] [place] [address] PCP - Essence Attributed PCP 03/08/17 Beau Clement MD [address] [place] [address] PCP - General Family Medicine 07/13/18 documented as of this encounter
--- OUTSIDE RECORDS SUMMARY | 2024-03-18 22:41 | XMS_ITS | Encounter Summary ---
Author Organization [facility] Address [address] [place] [address] Phone Care Team Providers Care Printer Machine Name Role Phone Beau Clement MD Unavailable [phone]- [phone] Beau Clement MD Primary Care Provid er Reason for Visit * Reason Comments Yag Cap * Consultation (Routine) - Closed Specialty Diagnoses / Procedures Referred By Contac t Referred To Contact Ophthalmology Diagnoses Bilateral posterior capsular opacification Severe myopia of both eyes Presbyopia Beau Clement MD [address] [place] [address] Phone: tel: fax: Shelbi Adams MD [address] DEPT OPHTHALMOLOGY, [address] [address] Phone: tel: fax: Referral ID Status Reason Start Date Expiration Date V isits Requested Visits Authorized [id number] Closed Specialty Services Required 05/04/2022 05/05/2023 6 6 Encounter Details Date Type Department Care Team (Late st Contact Info) Description 06/29/2022 2:15 PM CDT Office Visit [facility] Ophthalmology [address] 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 [...] checked 30 minutes post-op in the office. 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 Visual Acuity (Snellen - Linear) Right Left Dist sc 20/40 -1 20/60 -2 Dist cc 20/50 -2 20/50 -2 Dist ph sc 20/40 20/50 -2 Tonometry Tonometry (Tonopen, 2:59 PM) Right Left Pressure 16 14 Not recorded documented in this encounter Miscellaneous Notes * Assessment & Plan Note - Jennifer Larose - 06/29/2022 1:16 PM CDTAssociated Problem(s): PCO (posterior capsular opacification), bilateral Plan to YAG cap left eye (OS). [...] Date/Time Associated Diagnosis Comments YAG CAPSULOTOMY - OS - LEFT EYE Routine 06/29/2022 4:04 PM CDT Bilateral posterior capsular opacification documented in this encounter Results * Yag Capsulotomy - OS - Left Eye (06/29/2022 4:04 PM CDT) Anatomical Region Laterality Modality Head Laser Room Narrative 07/12/2022 10:00 PM CDT Time Out Informed consent was obtained after all risks, benefits and alternatives were explained to the patient. The patient understood, agreed and wished to proceed. Timeout was completed verifying the patient, procedure, laterality and allergies. Pre-laser Medication Anesthetic drops used during this laser treatment included: proparacaine, tetracaine. Prior to treatment the operative eye had the following drop(s) instilled, Iopidine 0.5%, Mydriacly 1%, Mydfrin 2.5%. Pre-laser IOP The pre-laser IOP was 14 at 2:59 PM. Laser Capsulotomy 62 applications were applied to the operative eye, the average power was 1.3 mW. The total energy was 74. Post-laser Medication Iopidine 0.5%, Pred Forte 1% was placed in the operative eye at the end of the procedure. Post-laser IOP The post-laser IOP was 13 at 4:00 PM. E-Prescribed Medication The following medication(s) - [...] and/or verbal post procedure care education. Notes Pt with difficult positioning- moved a lot and didn't keep forehead or chin in slit lamp well. Good opening seen at the end us Shelbi Adams MD OPHTH CLINIC PROCEDURES Final R esult documented in this encounter Visit Diagnoses Diagnosis PCO (posterior capsular opacification), bilateral- Primary Unspecified after-cataract Bilateral posterior capsular opacification Unspecified after-cataract Pseudophakia of both eyes Lens replaced by other means Retinal drusen of both eyes documented in this encounter Eye Exam Visual Acuity (Snellen - Linear) Right eye Left eye Dist sc 20/40 -1 20/60 -2 Dist cc 20/50 -2 20/50 -2 Dist ph sc 20/40 20/50 -2 Tonometry (Tonopen, 2:59 PM) Right eye Left eye Pressure 16 14 Pupils Dark Light Shape React APD Right eye 4 3.5 Round Slow None Left eye 3.5 2.5 Round Slow None Neuro/Psych Oriented x3: Yes Mood/Affect: Normal Dilation Left eye: 1.0% Mydriacyl, 2. 5% Phenylephrine @ 3:03 PM External Exam Right eye Left eye External Normal Normal Slit Lamp Exam Right eye Left eye Lids/Lashes Normal Normal Conjunctiva/Sclera White and quiet White and rodney et Cornea Clear Clear Anterior Chamber Deep and quiet Deep and quiet Iris Round and reactive Round and deuce ctive Lens PCIOL, 1+ PCO PCIOL in good po sition, 2+ PCO Anterior Vitreous Normal Care Teams Printer Machine Relationship Specialty Start Date End Date Beau Clement MD [address] [place] [address] PCP - Essence Attributed PCP 03/08/17 Beau Clement MD [address] [place] [address] PCP - General Family Medicine 07/13/18 documented as of this encounter
--- OUTSIDE RECORDS SUMMARY | 2024-03-18 22:41 | XMS_ITS | Encounter Summary ---
Author Organization [facility] Address [address] [facility] [address] [place] [address] Care Team Providers Care Lead Mechanic Name Role Phone Beau Clement MD Unavailable [phone]- [phone] Beau Clement MD Primary Care Provid er Encounter Details Date Type Department Care Team (Late st Contact Info) Description 02/10/2022 Telephone [facility] Accountable Care Organization [address] [place] [address] Jennifer Russell, RN [address] [facility] [address] [place] [address] Social History Tobacco Use Types Packs/Day Years [...] on file Legal Sex Female 8:34 AM QUALITY ASSURANCE SUPERVISOR Gender Identity Female 08/22/2019 6:09 AM CDT Sexual Orientation Straight 08/22/2019 6: 09 AM CDT documented as of this encounter Miscellaneous Notes * Telephone Encounter - Beau Clement MD - 02/11/2022 5:06 PM QUALITY ASSURANCE SUPERVISOR Rx sent. Ativan, 0.5 mg, 1/2 tablet up to 3 times a day. Will reassess at her visit later this week. ITY ASSURANCE SUPERVISOR * Telephone Encounter - Anabelle Cristobal LPN - 02/11/2022 4:07 PM CST agreeable, send to [facility] [place] ITY ASSURANCE SUPERVISOR * Telephone Encounter - Beau Clement MD - 02/11/2022 4:00 PM QUALITY ASSURANCE SUPERVISOR We could offer Dottie a few days of low-dose lorazepam, which would help anxiety and possibly muscle spasm. However, it can be sedating, which we need to watch for, especially when combined with her pain medication. ITY ASSURANCE SUPERVISOR * Telephone Encounter - Jennifer Russell RN - 02/11/2022 12:51 PM QUALITY ASSURANCE SUPERVISOR Essence- , Edgard called me and states pt is able to walk to bathroom - more pain and what to do- is giving hydrocodone- dozing/sleeping sort of per pt otherwise- is awake at present time- ptstates pain is worse and then seems ok- edgard states not eating as much-pt wants to go to ER and Edgard wants to keep her out of ER- is there any other medication she could have- has an appt 02/13/22- Jennifer Russell RN, BSN [facility] Process Coach for High Risk [phone] ITY ASSURANCE SUPERVISOR ITY ASSURANCE SUPERVISOR * Telephone Encounter - Anabelle Cristobal LPN - 02/10/2022 3:55 PM CST Appt rescheduled and pt aware ITY ASSURANCE SUPERVISOR * Telephone Encounter - Jennifer Russell RN - 02/10/2022 2:15 PM CST Essence- ER 02/09/22 [facility]- per [facility] notes: 76 y.o. female here with concern for left groin pain from last 1-2 months. No nausea or vomiting, no UTI like symptoms. BP 213/96 Endorses: L-sided groin pain (intermittent pain, but as of yesterday, been really painful per patient) Denies: trauma/injury, nausea/vomiting/diarrhea, burning when urinating, numbness/tingling RR even/nl. Ambulatory with steady gait. AAOX4. NAD. PT LWBS- states waited for 6 hrs prior to leaving w/o being seen Called pt and spoke w/ initially and states can not walk, but able to go to bathroom- spokew/ pt and able to bear wt on L side- states presses hand onto L groin for stabilization-has pain ofL hip and Lower back- denies numbness/tingling- states it is an aching pain, like a knife pain- states sleeps off and on- only taking tylenol- has had this type of pain 2021 fall- has had this all her life- denies issues w/ BMs/voids- is eating and drinking- will return to ER for emergent needs- has my phone number- Jennifer Russell RN, BSN [facility] Process Coach for High Risk [phone] ITY ASSURANCE SUPERVISOR documented in this encounter Plan of Treatment Not on file documented as of this encounter Visit Diagnoses Not on filedocumented in this encounter Care Teams Lead Mechanic Relationship Specialty Start Date End Date Beau Clement MD [address] [place], [place] [id number] PCP - Essence Attributed PCP 03/08/17 Beau Clement MD [address] [place] [facility] [place] [id number] PCP - General Family Medicine 07/13/18 documented as of this encounter
--- OUTSIDE RECORDS SUMMARY | 2024-03-18 22:41 | XMS_ITS | Encounter Summary ---
Author Organization [facility] Medical Group Address [address] [facility] [address] [place] [address] Care Team Providers Care Cigarette Book Maker Name Role Phone Beau Clement MD Unavailable +- [phone] Beau Clement MD Primary Care Provid er Reason for Visit * Reason Onset Date Comments Medical Question/Miscellaneous 12/11/2021 Encounter Details Date Type Department Care Team (Late st Contact Info) Description 12/11/2021 Telephone [facility] Family Medicine [address] [address] Beau Clement MD [address] [address] Medical Question/Miscellaneous Social History Tobacco Use Types Packs/Day Years [...] on file Legal Sex Female 8:34 AM RN ORTHOPAEDIC Gender Identity Female 08/22/2019 6:09 AM CDT Sexual Orientation Straight 08/22/2019 6: 09 AM CDT documented as of this encounter Miscellaneous Notes * Telephone Encounter - Joseph Richardson - 12/11/2021 8:39 AM CDT Medical Question/Miscellaneous Caller???s Concern: Spoke with patients he was calling to get the information regarding patients referal with neurology Refer to Dept: [facility] [address], [address] Caller???s Call back #: [phone] Does message need to be routed?No documented in this encounter Plan of Treatment Not on file documented as of this encounter Visit Diagnoses Not on filedocumented in this encounter Care Teams Cigarette Book Maker Relationship Specialty Start Date End Date Beau Clement MD [address] [place] [address] PCP - Essence Attributed PCP 03/08/17 Beau Clement MD [address] [place] [address] PCP - General Family Medicine 07/13/18 documented as of this encounter
--- OUTSIDE RECORDS SUMMARY | 2024-03-18 22:41 | XMS_ITS | Encounter Summary ---
Author Organization [facility] Medical Group Address [address] [facility] [address] [place] [address] Care Team Providers Care Industrial Millwright Name Role Phone Beau Clement MD Unavailable +- [phone] Beau Clement MD Primary Care Provid er Reason for Visit * Reason Onset Date Comments Referral Request 02/10/2022 Encounter Details Date Type Department Care Team (Late st Contact Info) Description 02/10/2022 Telephone [facility] Family Medicine [address] [address] Beau Clement MD [address] [address] Referral Request Social History Tobacco [...] on file Legal Sex Female 8:34 AM EXAM PROCTOR Gender Identity Female 08/22/2019 6:09 AM CDT Sexual Orientation Straight 08/22/2019 6: 09 AM CDT documented as of this encounter Miscellaneous Notes * Telephone Encounter - Lisa Sepulveda - 02/13/2022 10:13 AM CST Essence approval, records faxed for scheduling to Dr. Izabela Navarro's office. PROCTOR * Telephone Encounter - Mercedes Abbasi MA - 02/11/2022 1:51 PM CST Call Back Caller???s Concern: is calling in stating the referral was sent to wrong doctor. It needs to be sent to the doctor below please Caller???s Call back #: [phone] Does message need to be routed? Yes-Action Needed PROCTOR * Telephone Encounter - Tami Aguilar - 02/10/2022 12:46 PM CST Referral Provider Name (if patient is seeing a nurse practitioner or physician assistant department manager, list the BAR ASSISTANT/PA, but also their collaborating doctor): Izabela Navarro M.D. Specialty: Pain Management Address: [place] [address] Diagnosis Code/Symptom/Reason Patient is being seen: back injections (arthritis on spinal column) Date of Appointment: TBD, referral needed before able to schedule NPI#: [id number] Tax ID#: Does not have Is insurance in chart up to date? Yes Caller???s Callback #: [phone] Additional Comments: Please notify pt by phone to confirm once referral has been sent. Does message need to be routed?Yes-Action Needed PROCTOR documented in this encounter Plan of Treatment Not on file documented as of this encounter Visit Diagnoses Not on filedocumented in this encounter Care Teams Industrial Millwright Relationship Specialty Start Date End Date Beau Clement MD [address] [place] [address] PCP - Essence Attributed PCP 03/08/17 Beau Clement MD [address] [place] [address] PCP - General Family Medicine 07/13/18 documented as of this encounter
--- OUTSIDE RECORDS SUMMARY | 2024-03-18 22:41 | XMS_ITS | Encounter Summary ---
Author Organization [facility] Healthcare Address [address] [place] [address] Care Team Providers Care Marketing Communications Associate Name Role Phone Beau Clement MD Unavailable [phone]- [phone] Beau Clement MD Primary Care Provid er Encounter Details Date Type Department Care Team (Late st Contact Info) Description 01/14/2022 12:20 PM SURVEY RESEARCH TEACHER Lab [address] [address] Late onset Alzheimer's dementia without behavioral disturbance, psychotic disturbance, mood disturbance, or anxiety, unspecified dementia severity (HCC) Social History Tobacco Use Types Packs/Day [...] on file Legal Sex Female 8:34 AM SURVEY RESEARCH TEACHER Gender Identity Female 08/22/2019 6:09 AM CDT Sexual Orientation Straight 08/22/2019 6: 09 AM CDT documented as of this encounter Plan of Treatment Not on file documented as of this encounter Procedures Procedure Name Priority Date/Time Associated Diagnosis Comments TSH Routine 01/14/2022 2:04 PM SURVEY RESEARCH TEACHER Late onset Alzheimer's dementia without behavioral disturbance, psychotic disturbance, mood disturbance, or anxiety, unspecified dementia severity (HCC) VITAMIN B12 Routine 01/14/2022 2:04 PM SURVEY RESEARCH TEACHER Late onset Alzheimer's dementia without behavioral disturbance, psychotic disturbance, mood disturbance, or anxiety, unspecified dementia severity (HCC) documented in this encounter Results * Vitamin B12 (01/14/2022 2:04 PM SURVEY RESEARCH TEACHER) Vitamin B12 597 230 - 1,250 pg/mL [facility] Blood 01/14/2022 2:04 PM SURVEY RESEARCH TEACHER 01/14/2022 2:04 PM SURVEY RESEARCH TEACHER us Beny Guillaume MD PhD LAB BLOOD ORDERABLES Fi nal Result Performing Organization Address City/[facility]/ZIP Co de Phone Number [facility] [address] [place], [place] [id number] * TSH (01/14/2022 2:04 PM SURVEY RESEARCH TEACHER) Thyroid Stimulating Hormone 1.22 0.30 - 4.20 mcIUnit/mL [facility] Blood 01/14/2022 2:04 PM SURVEY RESEARCH TEACHER 01/14/2022 2:04 PM SURVEY RESEARCH TEACHER Beny Guillaume MD PhD LAB BLOOD ORDERABLES Fi nal Result [facility] [address] [employer] [place] [address] documented in this encounter Visit Diagnoses Diagnosis Late onset Alzheimer's dementia without behavioral disturbance, psychotic disturbance, mood disturbance, or anxiety, unspecified dementia severity (HCC) documented in this encounter Care Teams Marketing Communications Associate Relationship Specialty Start Date End Date Beau Clement MD [address] [place] [address] PCP - Essence Attributed PCP 03/08/17 Beau Clement MD [address] [place] [address] PCP - General Family Medicine 07/13/18 documented as of this encounter
--- OUTSIDE RECORDS SUMMARY | 2024-03-18 22:41 | XMS_ITS | Encounter Summary ---
Author Organization [facility] Address [address] [place] [address] Phone Care Team Providers Care Explosive Operator Grenade Name Role Phone Beau Clement MD Unavailable +1- [phone] Beau Clement MD Primary Care Provid er Reason for Referral * Diagnostic Imaging (Routine) - Closed Specialty Diagnoses / Procedures Referred By Contac t Referred To Contact Diagnoses Optic nerve drusen, bilateral Procedures Sagastume Visual Field - OU - Both Eyes Addy Nguyen MD Phone: tel: fax: [facility] (All Locations) Referral ID Status Reason Start Date Expiration Date Visits Re quested Visits Authorized [id number] Closed 12/09/2021 01/08/2023 1 1 Encounter Details Date Type Department Care Team (Late st Contact Info) Description 12/09/2021 Orders Only [facility] Ophthalmology [address] [place] [address] [address] [place] [address] Addy Nguyen MD [address] [place] [address] Optic nerve drusen, unspecified laterality (Primary Dx); Optic nerve drusen, bilateral Social History Tobacco Use Types Packs/Day Years [...] on file 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 Cooperation was borderline. Reliability was borderline. Mean Deviation was -19.09 dB. Pattern Deviation was 10.75 dB. Left Eye Fixation was poor. Cooperation was borderline. Reliability was borderline. Mean Deviation was -25.96 dB. Pattern Deviation was 6.61 dB. Notes Pt had trouble fixating, eyes wandered around the bowl after several corrections. OD; decreased FT, generalized depression OS: decreased FT, generalized derpession us Addy Nguyen MD OPH VISUAL FIELD Fi nal Result documented in this encounter Visit Diagnoses Diagnosis Optic nerve drusen, unspecified laterality- Primary Optic nerve drusen, bilateral Optic nerve drusen, bilateral documented in this encounter Care Teams Explosive Operator Grenade Relationship Specialty Start Date End Date Beau Clement MD [address] [place] [address] PCP - Essence Attributed PCP 03/08/17 Beau Clement MD [address] [facility] [place] [address] PCP - General Family Medicine 07/13/18 documented as of this encounter
--- OUTSIDE RECORDS SUMMARY | 2024-03-18 22:41 | XMS_ITS | Encounter Summary ---
Author Organization [facility] Medical Group Address [address] [facility] [address] [place] [address] Care Team Providers Care Aircraft Instrument Mechanic Name Role Phone Beau Clement MD Unavailable +- [phone] Beau Clement MD Primary Care Provid er Encounter Details Date Type Department Care Team (Late st Contact Info) Description 05/26/2022 Telephone [facility] Family Medicine [address] [address] Beau Clement MD [address] [address] Social History Tobacco Use Types [...] on file 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 Message received from pt's stating: Edgard Ross Bjcmg [facility] (supporting Beau Clement MD) 1 hour ago (8:45 AM) Valentina has an appointment with Dr. Garrett at 10:45 Wednesday morning 05/29/2022. I do not show a referral for thanks. Referral placed documented in this encounter Plan of Treatment Not on file documented as of this encounter Visit Diagnoses Diagnosis Dyslipidemia- Primary Other and unspecified hyperlipidemia Essential (primary) hypertension Unspecified essential hypertension documented in this encounter Care Teams Aircraft Instrument Mechanic Relationship Specialty Start Date End Date Beau Clement MD [address] [place] [address] PCP - Essence Attributed PCP 03/08/17 Beau Clement MD [address] [place] [address] PCP - General Family Medicine 07/13/18 documented as of this encounter
--- OUTSIDE RECORDS SUMMARY | 2024-03-18 22:41 | XMS_ITS | Encounter Summary ---
Author Organization [facility] Medical Group Address [address] [facility] [address] [place] [address] Care Team Providers Care Software Engineer Web Services Name Role Phone Beau Clement MD Unavailable +- [phone] Beau Clement MD Primary Care Provid er Encounter Details Date Type Department Care Team (Late st Contact Info) Description 02/11/[address] 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 p.r.n. ordered ERNMAKER PRESSURE CAST documented in this encounter Plan of Treatment Not on file documented as of this encounter Visit Diagnoses Not on filedocumented in this encounter Care Teams Software Engineer Web Services Relationship Specialty Start Date End Date Beau Clement MD [address] [place] [address] PCP - Essence Attributed PCP 03/08/17 Beau Clement MD [address] [place] [address] PCP - General Family Medicine 07/13/18 documented as of this encounter
--- OUTSIDE RECORDS SUMMARY | 2024-03-18 22:41 | XMS_ITS | Encounter Summary ---
Author Organization [facility] Address [address] [place] [address] Phone Care Team Providers Care Cooling Tower Operator Name Role Phone Beau Clement MD Unavailable [phone]- [phone] Beau Clement MD Primary Care Provid er Reason for Visit * Reason Comments Yag Cap Evaluation * Consultation (Routine) - Closed Specialty Diagnoses / Procedures Referred By Contac t Referred To Contact Ophthalmology Diagnoses Bilateral posterior capsular opacification Severe myopia of both eyes Presbyopia Beau Clement MD [address] [place] [address] Phone: tel: fax: Shelbi Adams MD [address] DEPT OPHTHALMOLOGY, [address] [address] Phone: tel: fax: Referral ID Status Reason Start Date Expiration Date V isits Requested Visits Authorized [id number] Closed Specialty Services Required 05/04/2022 05/05/2023 6 6 Encounter Details Date Type Department Care Team (Late st Contact Info) Description 05/21/2022 10:30 AM CDT Office Visit [facility] Ophthalmology [address] 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 Will obtain IOL records. 12/03/2021- phaco/ intraocular lens (IOL) left eye (OS)- ABarsam BCVA is not much worse than postop. MRx update never given. Told by optom needs YAG cap. Bilateral posterior capsular opacification - Ambulatory referral to Ophthalmology Severe myopia of both eyes - Ambulatory referral to Ophthalmology Presbyopia - Ambulatory referral to Ophthalmology Retinal drusen of both eyes Assessment & Plan: Plan baseline macular OCT PCO (posterior capsular opacification), bilateral Assessment & Plan: Plan to YAG cap left eye (OS). Then likely glasses. Do not suspect right eye (OD) will need YAG. Plan spetralis macular OCT on day of YAG cap. Return if symptoms worsen or fail to improve, for YAG capsulotomy Left eye; sprectralis mac OCT. Visual Acuity (Snellen - Linear) Right Left Both Dist sc 20/40 +1 20/60 Dist ph sc NI 20/50 -2 Near cc J3 Tonometry Tonometry (Tonopen, 11:21 AM) Right Left Pressure 18 15 Not recorded documented in this encounter Miscellaneous Notes * Assessment & Plan Note - Shelbi Adams MD - 05/21/2022 12:14 PM CDT Associated Problem(s): PCO (posterior capsular opacification), bilateral Plan to YAG cap left eye (OS). Then likely glasses. Do not suspect right eye (OD) will need YAG. Plan spetralis macular OCT on day of YAG cap. * Assessment & Plan Note - Shelbi Adams MD - 05/21/2022 12:13 PM CDT Associated Problem(s): Retinal drusen of both eyes Plan baseline macular OCT * Assessment & Plan Note - Shelbi Adams MD - 05/21/2022 12:09 PM CDT Associated Problem(s): Pseudophakia of both eyes Had CE/IOL OD at [facility]. Will obtain IOL records. 12/03/2021- phaco/ intraocular lens (IOL) left eye (OS)- ABarsam BCVA is not much worse than postop. MRx update never given. Told by optom needs YAG cap. 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), bilateral Unspecified after-cataract documented in this encounter Orders Outpatient Referral Count Last Ordered Date Fir st Ordered Date AMB REFERRAL TO OPHTHALMOLOGY 1 05/21/2022 documented in this encounter Eye Exam Visual Acuity (Snellen - Linear) Right eye Left eye Both eyes Dist sc 20/40 +1 20/60 Dist ph sc NI 20/50 -2 Near cc J3 Tonometry (Tonopen, 11:21 AM) Right eye Left eye Pressure 18 15 Pupils Dark Light Shape React APD Right eye 4 3 Round Brisk None Left eye 3.5 2.5 Round Brisk None Visual Torres Right eye Left eye Full Restrictions Total inferior n fanny deficiency; Partial outer superior nasal deficiency Extraocular Movement Right eye Left eye Full Full Neuro/Psych Oriented x3: Yes Mood/Affect: Normal Dilation Both eyes: 1.0% Mydriacyl @ 11:21 AM Glare Testing (Transilluminator) High Right eye 20/40 Left eye 20/80-1 External Exam Right eye Left eye External [...] eye Left eye Disc flat, mild blurred m argins but no elevation flat, mild blurred margins but no elevation C/D Ratio 0.15 0.15 Macula central drusen, no mac heme cent ral drusen, no mac heme Vessels Normal Normal Periphery Normal Normal Manifest Refraction Sphere Cylinder [place] Dist [place] Right eye -0.50 +0.25 135 20/30+1 Left eye -1.50 +0.50 120 20/40 Care Teams Cooling Tower Operator Relationship Specialty Start Date End Date Beau Clement MD [address] [place] [address] PCP - Essence Attributed PCP 03/08/17 Beau Clement MD [address] [place] [address] PCP - General Family Medicine 07/13/18 documented as of this encounter
--- OUTSIDE RECORDS SUMMARY | 2024-03-18 22:41 | XMS_ITS | Encounter Summary ---
Author Organization [facility] Address [address] [place] [address] Care Team Providers Care Business Services Assistant Name Role Phone Beau Clement MD Unavailable +- [phone] Beau Clement MD Primary Care Provid er Reason for Visit * Reason Comments Abdominal Pain Groin Pain Encounter Details Date Type Department Care Team (Late st Contact Info) Description 02/09/2022 1:01 PM [employer] - 02/09/2022 6:55 PM [facility] Emergency [address] [address] Discharge Disposition: Left without being seen Social History Tobacco Use Types Packs/Day Years [...] on file Legal Sex Female 8:34 AM [employer] Gender Identity Female 08/22/2019 6:09 AM CDT Sexual Orientation Straight 08/22/2019 6: 09 AM CDT documented as of this encounter Last Filed Vital Signs Vital Sign Reading Time Taken Comments Blood Pressure 99/60 02/09/2022 6:02 PM [employer] Pulse 72 02/09/2022 6:02 PM [employer] Temperature 36.5 ??C (97.7 ??F) 02/09/2022 1:03 PM CS T Respiratory Rate 18 02/09/2022 6:02 PM [employer] Oxygen Saturation 97% 02/09/2022 6:02 PM [employer] Inhaled Oxygen Concentration - - Weight 45.8 kg (100 lb 15.5 oz) 02/09/2022 1:03 PM [employer] Height 165.1 cm (5' 5 ) 02/09/2022 1:03 PM [employer] Body Mass Index 16.8 02/09/2022 1:03 PM [employer] documented in this encounter Medications at Time of Discharge aspirin 81 mg enteric coated tabletIndications :heart health Take 1 tablet (81 mg total) by mouth every morning calcium carbonate/vitamin D3 (CALCIUM 500 + D ORAL)Indications: supplement Take 1 tablet by mouth every morning atorvastatin (LIPITOR) 40 mg tablet Take 1 tablet (40 mg total) by mouth daily 90 tablet 3 10/31/2021 10/29/2022 donepeziL (ARICEPT) 10 mg tablet Take 1 tablet (10 mg total) by mouth nightly 30 tablet 11 01/14/2022 12/28/2022 donepeziL (ARICEPT) 5 mg tablet Take 1 tablet (5 mg total) by mouth nightly 30 tablet 01/14/2022 02/13/2022 ibandronate (BONIVA) 150 mg tabletIndications :Osteopenia of both hips TAKE 1 TABLET (150 MG TOTAL) BY MOUTH EVERY 30 (THIRTY) DAYS TAKE IN AM WITH GLASS OF WATER PRIOR TO FOOD, DON'T LIE DOWN FOR 30 MINUTES. 3 tablet 3 10/06/2021 12/19/2022 metoprolol XL (TOPROL-XL) 25 mg extended release tablet TAKE 1 TABLET BY MOUTH EVERY DAY 90 tablet 2 11/11/2021 11/24/2022 documented as of this encounter Discharge Disposition Disposition Code Departure Means Destination Left without being seen documented in this encounter ED Notes * Sulma Rob RN - 02/09/2022 1:36 PM CST Pt presents to ED for left groin pain x 1-2 months Endorses: L-sided groin pain (intermittent pain, but as of yesterday, been really painful per patient) Denies: trauma/injury, nausea/vomiting/diarrhea, burning when urinating, numbness/tingling RR even/nl. Ambulatory with steady gait. AAOX4. NAD. [employer] documented in this encounter Miscellaneous Notes * ED Triage Provider Note - Vinay Santana NP - 02/09/2022 1:42 PM CST Dottie Bryant is 76 y.o. female here with concern for left groin pain from last 1-2 months. No nausea or vomiting, no UTI like symptoms. Triage exam: VITAL SIGNS: Patient Vital Signs for the past 24 hrs: BP Temp Temp src Pulse Resp SpO2 Height Weight 02/09/22 1303 (!) 213/96 36.5 ??C (97.7 ??F) Oral 71 16 97 % 165.1 cm (5' 5 ) 45.8 kg (100 lb 15.5 oz) GENERAL: Well developed, well nourished. No apparent distress. HEAD: Atraumatic RESPIRATORY: Normal respiratory effort NEUROLOGIC: Alert, moves all extremities equally, follow commands without difficulty [employer] documented in this encounter Plan of Treatment Not on file documented as of this encounter Procedures Procedure Name Priority Date/Time Associated Diagnosis Comments URINALYSIS AND REFLEX TO MICROSCOPIC AND CULTURE STAT 02/09/2022 3:04 PM [employer] CT ABDOMEN PELVIS W CONTRAST ED 02/09/2022 2:54 PM [employer] EGFR STAT 02/09/2022 1:45 PM [employer] DIFFERENTIAL AUTO STAT 02/09/2022 1:4 5 PM [employer] CBC WITH AUTO DIFFERENTIAL STAT 02/09/2022 1:45 PM [employer] COMPREHENSIVE METABOLIC PANEL STAT 02/09/2022 1:45 PM [employer] documented in this encounter Results * Urinalysis reflex to microscopic and culture Urine (02/09/2022 3:04 PM [employer]) Color, ur Yellow Yellow [facility] Clarity, ur Clear Clear [facility] Specific gravity, ur 1.010 1.003 - 1.030 [facility] pH, urine 7.5 [facility] Protein, ur ql Negative Negative [facility] Glucose, ur ql Negative Negative [facility] Ketones, ur Negative Negative [facility] Bilirubin, ur Negative Negative [facility] Blood, ur Negative Negative [facility] Urobilinogen, ur <2.0 <2.0 mg/dL [facility] Nitrite, ur Negative Negative [facility] Leukocyte esterase, ur Negative Negative [facility] UA reflex comment Reflex conditions for microscopic UA and culture not met. [facility] Urine 02/09/2022 3:04 PM [employer] 02/09/2022 3:06 PM [employer] Narrative [facility] - 02/09/2022 3:09 PM [employer] ?? Urine pH is affected by diet, medications, systemic acid-base disturbances, and renal tubular function. ??pH may affect urinary stone formation. ??For example, urine pH below 6.0 may help reduce the tendency for calcium phosphate stones and pH greater than 6.0 may reduce the tendency for uric acid stone formation. Source: [facility] [employer] Last revised 03-18-2017 us Vinay Santana NP LAB MICROBIOLOGY - GENERAL ORDER LARRY Final Result [facility] [address] [facility] Department [place] [address] * CT Abdomen Pelvis W Contrast (02/09/2022 2:54 PM [employer]) Anatomical Region Laterality Modality Body N/A Computed Tomogra phy 02/09/2022 3:08 PM [employer] Narrative 02/09/2022 3:32 PM [employer] EXAM DESCRIPTION: ?? CT ABDOMEN PELVIS W CONTRAST REASON FOR STUDY: ?? LLQ abdominal pain, diverticulitis suspected, LLQ pain, left inguinal pain ?? left groin pain x 1-2 months ?Hx: skin cancer ?? TECHNIQUE: CT scan of the abdomen and pelvis performed with intravenous and ?? without ??oral contrast using helical scanning technique with dynamic intravenous contrast injection. Reconstructed coronal and sagittal MPR images reviewed. All images stored on PACS. Automated exposure control was used as a dose optimization technique for this examination. CONTRAST TYPE/DOSE: ?? 100mL of IOVERSOL 350 MG IODINE/ML INTRAVENOUS SYRINGE ?? injected via ?? intravenous COMPARISON: ?? Abdominal CT 05/09/2014 FINDINGS: LOWER CHEST: ?? No focal consolidation [...] TRACT: ?? Normal size with symmetric enhancement. ??No focal lesion identified. ??No renal calculus or hydronephrosis. ??Limited evaluation of the ureters due to abdominal crowding. ??Urinary bladder is unremarkable. GI: ?? Gastroesophageal junction stomach unremarkable. ??Normal course and caliber small bowel with no obstruction. ??Several nondilated fluid-filled loops of small [...] follow-up imaging is recommended for incidental renal and adrenal lesions per consensus recommendations based on imaging criteria. Further lab evaluation could be pursued based on clinical findings. Management of the Incidental Renal Mass on CT: A White Paper of the ACR Incidental Findings Committee. J Am Andrew Radiol. 2018 Apr;15(2):264-273. Management of Incidental Adrenal Masses: A White Paper of the ACR Incidental Findings Committee. J Am Andrew Radiol. 2017 Oct;14(8):4205-2377. THIS IS AN ELECTRONICALLY VERIFIED FINAL REPORT 02/09/2022 3:32 PM - Electronically signed by ??Felipe Pantoja M.D. AG D: ??02/09/2022 3:32 PM T: Report ID: [id number] Reading Location: ??[id number] Procedure Note Felipe Pantoja MD - 02/09/2022 EXAM DESCRIPTION: CT ABDOMEN PELVIS W CONTRAST REASON FOR STUDY: LLQ abdominal pain, diverticulitis suspected, LLQpain, left inguinal pain left groin pain x 1-2 months Hx: skin cancer TECHNIQUE: CT scan of the abdomen and pelvis performed with intravenousand without oral contrast using helical scanning technique with dynamic intravenous contrast injection. Reconstructed coronal and sagittal MPRimages reviewed. All images stored on PACS. Automated exposure control was used as a dose optimization technique forthis examination. CONTRAST TYPE/DOSE: 100mL of IOVERSOL 350 MG IODINE/ML INTRAVENOUSSYRINGE injected via intravenous COMPARISON: Abdominal CT 05/09/2014 FINDINGS: LOWER CHEST: No focal consolidation or pleural effusion. LIVER: Normal size. No identified cystic or solid masses. GALLBLADDER: Unremarkable BILE DUCTS: No intrahepatic or extrahepatic ductal dilatation. SPLEEN: Normal size. No focal lesions. PANCREAS: No identified cystic or solid masses. No significant calcifications. No adjacent inflammation or peripancreatic fluidcollections. Pancreatic duct not dilated. ADRENALS: Unremarkable KIDNEYS/URINARY TRACT: Normal size with symmetric enhancement. No focal lesion identified. No renal calculus or hydronephrosis. Limitedevaluation of the ureters due to abdominal crowding. Urinary bladder isunremarkable. GI: Gastroesophageal junction stomach unremarkable. Normal course and caliber small bowel with no obstruction. Several nondilated fluid-filled loops of small bowel the lower abdomen and pelvis which are nonspecificand may be secondary to slow transit or enteritis in the appropriate clinical setting. Appendix not definitively seen. Scattered colonic diverticulawith no definite evidence of diverticulitis identified although suboptimal evaluation the sigmoid colon due to abdominal crowding. Large amount ofstool throughout the colon. PERITONEUM: No ascites or free air. RETROPERITONEUM: No mass or adenopathy. REPRODUCTIVE: Limited evaluation of the pelvic contents on this exam. VASCULATURE: Aortic atherosclerotic vascular disease with no aneurysm. MUSCULOSKELETAL: No acute finding or concerning lesion. Moderate lumbar scoliosis with multilevel spondylitic changes grade 1 anterolisthesis ofL4 on L5. OTHER: Few mildly prominent bilateral inguinal lymph nodes, nonspecificbut likely reactive. IMPRESSION: 1. Sigmoid colon diverticulosis with no definite evidence ofdiverticulitis although limited evaluation of the sigmoid colon due to crowding in thepelvis and technique related noise. Clinical correlation is needed. 2. Nondilated fluid-filled loops of small bowel in the pelvis.Nonspecific but can be seen with enteritis in the appropriate clinical setting. 3. Stable chronic findings detailed above. REFERENCE: Unless otherwise specified, no follow-up imaging is recommendedfor incidental renal and adrenal lesions per consensus recommendations basedon imaging criteria. Further lab evaluation could be pursued based onclinical findings. Management of the Incidental Renal Mass on CT: A White Paper of the ACR Incidental Findings Committee. J Am Andrew Radiol. 2018 Apr;15(2):264-273. Management of Incidental Adrenal Masses: A White Paper of the ACRIncidental Findings Committee. J Am Andrew Radiol. 2017 Oct;14(8):4581-9176. THIS IS AN ELECTRONICALLY VERIFIED FINAL REPORT 02/09/2022 3:32 PM - Electronically signed by Feliep CALLAHAN T: Report ID: [id number] Reading Location: [place] [address] Vinay Santana NP IMG [address] PROCEDURES Final Result * eGFR (02/09/2022 1:45 PM [employer]) eGFR 90 mL/min/1. 73 m2 [facility] [...] Current interpretive data was last reviewed 2021. Blood 02/09/2022 1:45 PM [employer] 02/09/2022 1:48 PM [employer] Vinay Santana NP LAB BLOOD ORDERABLES Final Resul t [facility] [address] [facility] Department [place] [address] * Differential, auto (02/09/2022 1:45 PM [employer]) Neutrophil abs 5.3 1.7 - 6.5 K/cumm [facility] Imm gran abs 0.0 0.0 - 0.1 K/cumm [facility] Lymphocyte abs 1.8 0.8 - 3.3 K/cumm [facility] Monocyte abs 0.8 0.2 - 0.8 K/cumm [facility] Eosinophil abs 0.3 0.0 - 0.5 K/cumm [facility] Basophil abs 0.1 0.0 - 0.1 K/cumm [facility] Neutrophil pct 64.4 % [facility] Comment: Interpretive Data Percent cell count reference ranges are not reported, since discordance with absolute values may lead to misinterpretation of CBC data. Current Interpretive Data was last revised on 2017. Imm gran pct 0.4 % [facility] Comment: Interpretive Data Percent cell count reference ranges are not reported, since discordance with absolute values may lead to misinterpretation of CBC data. Current Interpretive Data was last revised on 2017. Lymphocyte pct 21.9 % [facility] Comment: Interpretive Data Percent cell count reference ranges are not reported, since discordance with absolute values may lead to misinterpretation of CBC data. Current Interpretive Data was last revised on 2017. Monocyte pct 9.2 % [facility] Comment: Interpretive Data Percent cell count reference ranges are not reported, since discordance with absolute values may lead to misinterpretation of CBC data. Current Interpretive Data was last revised on 2017. Eosinophil pct 3.0 % [facility] Comment: Interpretive Data Percent cell count reference ranges are not reported, since discordance with absolute values may lead to misinterpretation of CBC data. Current Interpretive Data was last revised on 2017. Basophil pct 1.1 % [facility] Comment: Interpretive Data Percent cell count reference ranges are not reported, since discordance with absolute values may lead to misinterpretation of CBC data. Current Interpretive Data was last revised on 2017. Blood 02/09/2022 1:45 PM [employer] 02/09/2022 1:48 PM [employer] us Vinay Santana NP LAB BLOOD ORDERABLES Final Resul t [facility] [address] [facility] Department [place] [address] * (ABNORMAL) CBC with auto differential (02/09/2022 1:45 PM [employer]) [facility] WBC 8.2 3.8 - 9.9 K/cumm [facility] Hgb 13.2 11.9 - 15.5 g/dL [facility] Hct 40.0 35.6 - 45.5 % [facility] Plt 303 150 - 400 K/cumm [facility] MPV 8.6(L) 9.1 - 12.3 fL [facility] RBC 4.01 3.90 - 5.20 M/cumm [facility] MCV 99.8(H) 81.3 - 96.4 fL [facility] MCH 32.9 27.1 - 33.3 pg [facility] MCHC 33.0 32.3 - 35.7 g/dL [facility] RDW CV 12.9 11.1 - 14.9 % [facility] RDW SD 47.5 35.7 - 48.1 fL [facility] NRBC abs 0.00 0.00 - 0.01 K/cumm [facility] Blood 02/09/2022 1:45 PM [employer] 02/09/2022 1:48 PM [employer] us Vinay Santana NP LAB BLOOD ORDERABLES Final Resul t [facility] [address] [facility] Department of Laboratories [place], [place] [id number] * Comprehensive metabolic panel (02/09/2022 1:45 PM [employer]) [facility] Sodium 136 135 - 145 mmol/L [facility] Potassium, pl 4.0 3.3 - 4.9 mmol/L [facility] Chloride 99 97 - 110 mmol/L [facility] CO2 30 22 - 32 mmol/L [facility] Anion gap 7 2 - 15 mmol/L [facility] BUN 13 8 - 25 mg/dL [facility] Creatinine 0.70 0.60 - 1.10 mg/dL [facility] Glucose 138 70 - 199 mg/dL [facility] Comment: Interpretive Data Fasting glucose >/= 126 [...] classification and Diagnosis of Diabetes Diabetes Care 2017;40 (Suppl. 1):S11. Current interpretive data was last revised 2017. Calcium 9.9 8.5 - 10.3 mg/dL [facility] Bilirubin, total 0.4 0.1 - 1.2 mg/dL [facility] Protein, pl 7.1 6.5 - 8.5 g/dL [facility] Albumin 4.2 3.5 - 5.0 g/dL [facility] Alk phos 51 40 - 130 Units/L [facility] ALT 20 7 - 45 Units/L [facility] AST 28 10 - 45 Units/L [facility] Blood 02/09/2022 1:45 PM [employer] 02/09/2022 1:48 PM [employer] Vinay Santana NP LAB BLOOD ORDERABLES Final Resul t [facility] [address] [facility] Department [place] [address] documented in this encounter Visit Diagnoses Not on filedocumented in this encounter Administered Medications Inactive Administered Medications - up to 3 most recent administrations Medication Order MAR Action Action Date Dose Rate Site cloNIDine (CATAPRES) tablet 0.2 mg 0.2 mg, oral, Once, On Wed02/09/22 at 1538, For 1 dose, Indications: hypertension, Opioid Withdrawal SymptomsIndications:hyperten elaine,Opioid Withdrawal Symptoms Given 02/09/2022 3:39 PM [employer] 0.2 mg HYDROcodone-acetaminophen (NORCO) 5-325 mg per tablet 1 tablet 1 tablet, oral, Once, On Wed02/09/22 at 1341, For 1 dose, Indications: PainIndications:Pain Given 02/09/2022 2:57 PM [employer] 1 tablet ioversoL (OPTIRAY 350) syringe 100 mL 100 mL, intravenous, Once in imaging, contrast, Starting on Wed02/09/22 at 1454, For 1 dose Contrast Given 02/09/2022 2:54 PM [employer] 100 mL sodium chloride 0.9% flush 125 mL 125 mL, intravenous, Once in imaging, line care, Starting on Wed02/09/22 at 1454, For 1 dose Given 02/09/2022 2:54 PM [employer] 50 mL documented in this encounter Active and Recently Administered Medications Times are shown in [employer]. Scheduled Medication Order 02/07/2022 02/08/2022 02/09/2022 cloNIDine (CATAPRES) tablet 0.2 mg (COMPLETED) 0.2 mg, oral, Once, On Wed02/09/22 at 1538, For 1 dose, Indications: hypertension, Opioid Withdrawal Symptoms 1539 (Given - Provid er: Lupe Jha RN) HYDROcodone-acetaminophen (NORCO) 5-325 mg per tablet 1 tablet (COMPLETED) 1 tablet, oral, Once, On Wed02/09/22 at 1341, For 1 dose, Indications: Pain 1457 (Given - Provid er: Lisbeth Arellano RN) PRN Medication Order 02/07/2022 02/08/2022 02/09/2022 ioversoL (OPTIRAY 350) syringe 100 mL (COMPLETED) 100 mL, intravenous, Once in imaging, contrast, Starting on Wed02/09/22 at 1454, For 1 dose 1454 (Contrast Given - Provider: RT Sydney) sodium chloride 0.9% flush 125 mL (COMPLETED) 125 mL, intravenous, Once in imaging, line care, Starting on Wed02/09/22 at 1454, For 1 dose 1454 (Given - Provid er: Ashely Huitron RT) documented in this encounter Care Teams Business Services Assistant Relationship Specialty Start Date End Date Beau Clement MD [address] [place] [address] PCP - Essence Attributed PCP 03/08/17 Beau Clement MD [address] [place] [address] PCP - General Family Medicine 07/13/18 documented as of this encounter
--- OUTSIDE RECORDS SUMMARY | 2024-03-18 22:41 | XMS_ITS | Encounter Summary ---
Author Organization [facility] Address [address] [place] [address] Phone Care Team Providers Care Day Care Attendant Name Role Phone Beau Clement MD Unavailable [phone] Beau Clement MD Primary Care Provid er Reason for Visit * Reason Onset Date Comments Scheduling Appointments 03/20/2022 Encounter Details Date Type Department Care Team (Late st Contact Info) Description 03/20/2022 Telephone [facility] Ophthalmology [address], [place] [id number] Addy Nguyen MD [address] [place] [address] Scheduling Appointments Social History Tobacco Use Types Packs/Day Years [...] on file Legal Sex Female 8:34 AM [employer]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 Pt can be reached at [phone] [employer] documented in this encounter Plan of Treatment Not on file documented as of this encounter Visit Diagnoses Not on filedocumented in this encounter Care Teams Day Care Attendant Relationship Specialty Start Date End Date Beau Clement MD [address] [place] [address] PCP - Essence Attributed PCP 03/08/17 Beau Clement MD [address] [place] [address] PCP - General Family Medicine 07/13/18 documented as of this encounter
--- OUTSIDE RECORDS SUMMARY | 2024-03-18 22:41 | XMS_ITS | Encounter Summary ---
Author Organization [facility] Address [address] [place] [address] Care Team Providers Care Director [facility] Name Role Phone Beau Clement MD Unavailable +- [phone] Beau Clement MD Primary Care Provid er Reason for Visit * Auth/Cert Specialty Diagnoses / Procedures Referred By Dede cat Referred To Contact Diagnoses Age-related nuclear cataract of left eye Age-related nuclear cataract of left eye [H25.12] Procedures TX REMV CATARACT EXTRACAP,INSERT LENS,COMP TX REMV CATARACT EXTRACAP,INSERT LENS LEFT EXTRACTION CATARACT - PHACOEMULSIFICATION AND LENS IMPLANT Referral ID Status Reason Start Date Expiration Date Visits Re quested Visits Authorized [id number] 1 1 Encounter Details Date Type Department Care Team (Late st Contact Info) Description 12/02/2021 8:30 AM CDT - 12/02/2021 9:30 AM CDT Surgery [facility] Operating Room [address] [place] [address] Addy Nguyen MD [address] [place] [address] LEFT EXTRACTION CATARACT - PHACOEMULSIFICATION AND LENS IMPLANT Surgery Details Date/Time Status Location OR Service Patient Class Case Class Case Type Trauma Case? 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 Gender Identity Female 08/22/2019 6:09 AM CDT Sexual Orientation Straight 08/22/2019 6: 09 AM CDT documented as of this encounter Last Filed Vital Signs Vital Sign Reading Time Taken Comments Blood Pressure 169/74 12/02/2021 9:30 AM CDT Pulse 58 12/02/2021 9:30 AM CDT Temperature 36.4 ??C (97.5 ??F) 12/02/2021 9:15 AM CD T Respiratory Rate 20 12/02/2021 9:30 AM CDT Oxygen Saturation 96% 12/02/2021 9:30 AM CDT Inhaled Oxygen Concentration - - Weight 45 kg (99 lb 4.8 oz) 12/02/2021 7:02 AM C DT Height 165.1 cm (5' 5 ) 12/02/2021 7:02 AM CDT Body Mass Index 16.52 12/02/2021 7:02 AM CDT documented in this encounter Discharge Instructions * Discharge Instructions* Addy Nguyen MD - 12/02/2021 7:18 AM CDT Cataract Surgery Post-Op Instructions Your surgeon???s name: Vazquez Nguyen MD NEXT APPOINTMENT: Date/Time: Location: MEDICATIONS: Start using your drops this evenin drop of each medication at dinner and bedtime Wait 2-3 minutes between eye drops, with eyes closed gently. Bring all of your eye drops to appointments. EYE PROTECTION: Wear normal glasses, sunglasses or an eye shield at all times over the eye that had surgery. Wear an eye shield with a piece of tape from the forehead to the cheek at night and any time you are sleeping. ACTIVITY: Do NOT bend over below waist - bend at knees. Do NOT lift more than 10 lbs, which is about the weight of a gallon milk. Do NOT strain or do anything that would make your face turn red. Open your mouth when coughing or sneezing. Take a stool softener for constipation. It is okay to shower, but avoid getting dirty water directly in your eye. No swimming. Please call for the following: Decreasing vision Increasing pain or light sensitivity Worsening redness or discharge Flashes of light (even with your eyes closed), new floaters (like a cloud of bugs in your vision), or a curtain falling across your vision Whom to call with concerns: [phone] - [facility] [place] If after hours, listen to the voicemail for instructions for contacting the [facility] insulation estimator. Thank you for entrusting us with your eye care. , documented in this encounter Medications at Time of Discharge aspirin 81 mg enteric coated tabletIndication s:heart health Take 1 tablet (81 mg total) by mouth every morning calcium carbonate/vitami n D3 (CALCIUM 500 + D ORAL)Indications :supplement Take 1 tablet by mouth every morning atorvastatin (LIPITOR) 40 mg tablet Take 1 tablet (40 mg total) by mouth daily 90 tablet 3 10/31/2021 ibandronate (BONIVA) 150 mg tabletIndication s:Osteopenia of both hips TAKE 1 TABLET (150 MG TOTAL) BY MOUTH EVERY 30 (THIRTY) DAYS TAKE IN AM WITH GLASS OF WATER PRIOR TO FOOD, DON'T LIE DOWN FOR 30 MINUTES. 3 tablet 3 10/06/2021 3 metoprolol XL (TOPROL-XL) 25 mg extended release tablet TAKE 1 TABLET BY MOUTH EVERY DAY 90 tablet 2 11/11/2021 3 ofloxacin (OCUFLOX) 0.3 % ophthalmic solution Administer 1 drop into the left eye 4 (four) times a day Start after 12-02-21 surgery 5 mL 1 12/01/2021 2 prednisoLONE acetate (PRED FORTE) 1 % ophthalmic suspension Administer 1 drop into the left eye 4 (four) times a day Start after 12-02-21 surgery 10 mL 1 12/01/2021 2 documented as of this encounter Discharge Disposition Disposition Code Departure Means Destination Discharge to home or self care documented in this encounter H&P Notes * Addy Nguyen MD - 12/02/2021 7:17 AM CDT I have reviewed the H&P, examined the patient, and endorse the findings as written. Plan of Care : Based on the above findings, I consider Dottie Bryant to be an acceptable risk for : Procedure(s): LEFT EXTRACTION CATARACT - PHACOEMULSIFICATION AND LENS IMPLANT I have reviewed the H&P, examined the patient, and endorse the findings as written. Physical Exam: Gen: Resting comfortably HEENT: Atraumatic. Resp: Unlabored Cards: RRR Abd: Soft Extr: Perfused Neuro: AAOx3 Psych: Normal affect I have discussed the risks/benefits of cataract surgery with lens placement of the left eye in the operating room which include pain, infection, bleeding loss of vision, damage to surrounding eye structures, need for additional surgery, loss of the eye, risks of general anesthesia, lid deformity, increased risk of retinal tear/detachment. Patient understands risks and wishes to proceed with surgery which will be performed today. Vazquez Nguyen MD Source Note - Beau Clement MD - 11/27/2021 10:30 AM CDT Images from the original note were not included. MEDICARE ANNUAL WELLNESS VISIT Dottie Bryant Basic Information In general, would you say your health is: (P) Good Do you have an advance directive, such as a living will or durable power of geology faculty member?: (P) No Would you like information regarding Advanced Directiv (Living Will) and/or Durable Power of Belt Turner?: (P) No Do you have to strain or struggle to hear/understand conversations?: (P) No Have you experienced any of the following problems currently or recently? Eating: (P) No Grooming: (P) No Bathing: (P) No Walking: (P) No Using the toilet: (P) No Memory problems: (P) Yes Difficulty speaking: (P) No Pain: (P) Yes Sexual Health: (P) No Fatigue: (P) No Have you experienced any of the following problems currently or recently? Laundry and/or housekeeping: (P) No Handling Money: (P) No Shopping: (P) No Food preparation: (P) No Transportation: (P) No Taking and/or getting your own medications: (P) Yes Do you use prescription drugs that are not prescribed for you?: (P) No Chief complaint: Medicare Wellness (Pt here for medicare wellness.) HPI: Valentina is here for her annual physical. She reports that she is feeling good today. Her appetite is good. She is sleeping well. She denies any bowel or bladder problems. She is tolerating her change in medication well, when he recently increased her statin. Her exercise is minimal. The patient's past medical history, surgical history, family history, and social history were reviewed today. Past Medical History: Diagnosis Date Dyslipidemia Hypertension Osteopenia TIA (transient ischemic attack) memory loss started 3 months ago July 2021. Unsure of TIA occurance Vitamin D deficiency Past Surgical History: Procedure Laterality Date CARDIAC ELECTROPHYSIOLOGY MAPPING AND ABLATION 2019 CATARACT EXTRACTION 2018 SECTION 01/1975 EYE SURGERY 2018 SKIN CANCER EXCISION 2015 nose VEIN SURGERY 12/1997 Family History Problem Relation Age of Onset Heart attack Mother Heart attack Father Diabetes Son Anesthesia problems Neg Hx Social History Tobacco Use Smoking status: Never Smokeless tobacco: Never Substance and Sexual Activity Drug use: Never Sexual activity: Defer Alcohol Use: Not At Risk Frequency of Alcohol Consumption: 2-4 times a month Average Number of Drinks: 1 or 2 Frequency of Binge Drinking: Never Allergies: Allergies Allergen Reactions Celecoxib Rash Current Medications: Outpatient Encounter Medications as of 11/27/2021 Medication Sig Dispense Refill aspirin 81 mg enteric coated tablet Take 81 mg by mouth every morning atorvastatin (LIPITOR) 40 mg tablet Take 1 tablet (40 mg total) by mouth daily (Patient taking differently: Take 40 mg by mouth daily before breakfast) 90 tablet 3 calcium carbonate/vitamin D3 (CALCIUM 500 + D ORAL) Take 1 tablet by mouth every morning ibandronate (BONIVA) 150 mg tablet TAKE 1 TABLET (150 MG TOTAL) BY MOUTH EVERY 30 (THIRTY) DAYS TAKE IN AM WITH GLASS OF WATER PRIOR TO FOOD, DON'T LIE DOWN FOR 30 MINUTES. (Patient taking differently: Take 150 mg by mouth every 30 (thirty) days Take in AM with glass of water prior to food, don't lie down for 30 minutes. On the of the month) 3 tablet 3 metoprolol XL (TOPROL-XL) 25 mg extended release tablet TAKE 1 TABLET BY MOUTH EVERY DAY 90 tablet 2 [DISCONTINUED] donepeziL (ARICEPT) 5 mg tablet TAKE 1 TABLET BY MOUTH EVERY DAY AT NIGHT 30 tablet 5 [DISCONTINUED] multivitamin capsule Take 1 capsule by mouth every morning (Patient not taking: Reported on 11/27/2021) [DISCONTINUED] ofloxacin (OCUFLOX) 0.3 % ophthalmic solution Administer 1 drop into the left eye 4 (four) times a day Start after 12-02-21 surgery (Patient not taking: Reported on 11/27/2021) 5 mL 1 [DISCONTINUED] prednisoLONE acetate (PRED FORTE) 1 % ophthalmic suspension Administer 1 drop into the left eye 4 (four) times a day Start after 12-02-21 surgery (Patient not taking: Reported on 11/27/2021) 10 mL 1 No facility-administered encounter medications on file as of 11/27/2021. Review of Systems Constitutional: Negative for activity [...] and urgency. Musculoskeletal: Negative for arthralgias, joint swelling, myalgias and neck stiffness. Skin: Negative for rash. Neurological: Negative for dizziness, weakness, light-headedness and headaches. Psychiatric/Behavioral: Positive for confusion. Negative for decreased concentration and sleep disturbance. The patient is not nervous/anxious. Vitals: Vitals: 11/27/21 1028 BP: 126/82 BP Location: Right arm Patient Position: Sitting Pulse: 54 Resp: 16 Temp: 36.4 ??C (97.6 ??F) TempSrc: Temporal SpO2: 99% Weight: 45.4 kg (100 lb) Height: 157.5 cm (5' 2 ) Physical Exam Vitals and nursing note [...] Little Interest or Pleasure in Doing Things: (P) Several days Feeling Down, Depressed, or Hopeless: (P) Not at all PHQ-2 Total Score (If total score is 3 or more points, staff should administer the PHQ-9): (P) 1 Over the past 2 weeks, how often have you been bothered by any of the following problems? Little Interest or Pleasure in Doing Things: (P) Several days Feeling Down, Depressed, or Hopeless: (P) Not at all PHQ-2 Total Score (If total score is 3 or more points, staff should administer the PHQ-9): (P) 1 Anxiety screen: Generalized Anxiety Disorder 7-item (RYLIE-7) scale Feeling nervous, anxious, or on edge: Not at all sure Not being able to stop or control worrying: Not at all sure Worrying too much about different things: Not at all sure Trouble relaxing: Not at all sure Being so restless that it's hard to sit still: Not at all sure Becoming easily annoyed or irritable: Not at all sure Feeling afraid as if something awful might happen: Not at all sure Total Score: 0 If you checked off any problems, how difficult have these made it for you to do your work, take care of things at home, or get along with other people?: Not difficult at all Audio/Visual screen: (only for Welcome to Medicare [...] or more falls in the last year: (P) No Incontinence: Are you experiencing or have concern about urine leakage? No Detection of Cognitive Impairment: Detect cognitive impairment based on direct observation, discussion with patient or family, or review of medical records? Yes Advanced Directive Durable Power of Belt Turner: Yes Living Will: Yes Care Team Providers: Patient Care Team: Beau Clement MD as PCP - General (Family Medicine) Beau Clement MD as PCP - Essence Attributed PCP Primary Pharmacy/DME suppliers: [id number] [place] [address] [address] [facility] [address] [facility] [id number] Counseling and Referral of Preventative Services: Please see patient instructions section for recommendations for appropriate screening and monitoring guidelines. Health Maintenance: Health Maintenance Topics with due status: Due On Topic Date Due Influenza Vaccine 11/06/2021 Health Maintenance Topics with due status: Not Due Topic Last Completion Date Colon Cancer Screening-DNA Stool 09/12/2020 Osteoporosis Screening-Bone Density Scan 12/06/2020 DTaP/Tdap/Td Vaccine 09/03/2021 Fall Risk Assessment 11/27/2021 Depression Screening-PHQ 11/27/2021 Well Visit 65+ 11/27/2021 Health Maintenance Topics with due status: Completed Topic Last Completion Date Hepatitis C Screening 06/24/2015 Zoster Vaccines 11/03/2017 Pneumococcal vaccine 65+ 10/01/2020 Covid-19 Vaccine 06/05/2021 Patient here for annual Medicare wellness visit and for review of complete medical problem list. All the elements of the plan were completed as outlined by [facility]. A copy of the prevention plan was [...] Encounter for Medicare annual wellness exam (Primary) Vascular dementia without behavioral disturbance (CMS/HCC) (HCC) Cerebral microvascular disease Essential (primary) hypertension Dyslipidemia Osteopenia of both hips Depression screening At standard risk for fall Plan: 1. Annual Exam: Continue healthy diet, Encouraged more exercise, as tolerated, with a goal of 150 minutes/week. Good health and prevention strategies discussed. 2. Vascular Dementia/Cerebral microvascular disease: Recently increased the Atorvastatin to 40MG daily. Keep blood pressure controlled. Continue to monitor. 3. Hypertension: Continue low sodium diet. Healthy weight discussed. Continue Metoprolol XL 4. Dyslipidemia: Continue healthy diet. Continue atorvastatin. Maintain healthy weight Encouraged more exercise. 5. Osteopenia: Continue calcium vitamin-D supplementation. Continue Boniva. 6. Depression screening: PHQ 2 and PHQ 9 are negative. 8. 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 Item Serial No. Making Line Worker Lot No. LRB No. Used [employer] LENS IOL POSTERIOR BICONVEX OPTIC SINGLE PIECE ENVISTA 6.0X12.5 +18.5D HYDROPHOBIC ACRYLIC [id number] - [id number] [employer] Lens Iol Posterior Biconvex Optic Single Piece Envista 6.0x12.5 +18.5d Hydrophobic Acrylic [id number] Mobile Theory Left 1 Implanted INDICATION FOR PROCEDURE The patient has noticed progressively decreasing vision and desired removal of her cataract. Risks,benefits and alternatives to the procedure were reviewed, including but not limited a risk of infection, bleeding, inflammation, retinal tears/detachments, retained lens pieces, need for additional procedures or surgeries, and risk of needing refractive correction post operatively. COMPLICATIONS None PROCEDURE The left eye was marked in the pre-operative holding area, and pre-operative drops were instilled into the operative eye. The patient was brought back to the operating room, and tetracaine drops wereinstilled into the left eye. The eye was then prepped and draped in the usual sterile fashion, and an eyelid speculum was placed. A 1.2 mm side-port blade was used to create a paracentesis incision at 5 o'clock. 0.2 mL of preservative-free 1% lidocaine with epinephrine was injected into the anterior chamber to augment topical anesthesia. Viscoat was injected to fill the anterior chamber and a 2.4 mm keratome blade was used tocreate a biplanar clear corneal incision temporally. The capsulorrhexis was initiated using a cystitome and completed using Utrata forceps. Hydrodissection and lens rotation was performed using BSS on a flat hydrodissection cannula. Phacoemulsification was used with the stop and chop technique using a Juan Carlos chopper as the second instrument to remove the nucleus. Residual cortical material was aspirated using coaxial irrigation and aspiration and Healon was used to re-inflate the anterior chamber and capsular bag. The intraocular lens [id number] 18.5D was loaded into a lens injector and inserted into the capsular bag. A Sinskey hook was used to position the trailing haptic in the capsular bag. The coaxial handpiece was used to remove remaining viscoelastic material from the anterior chamber and capsular bag. All wounds were hydrated with BSS on a cannula and checked to ensure they were water-tight. The eyewas adjusted to a physiologic pressure using BSS on a cannula. 0.1 mL of 10 mg/mL cefuroxime was injected into the anterior chamber. The eyelid speculum and drapes were removed, and maxitrol ointmentwas placed into the eye. The eye was shielded. The patient was then transferred to the recovery room in stable condition. She tolerated the procedure well and will follow up in the clinic tomorrow morning. SPECIMENS REMOVED None ESTIMATED BLOOD LOSS None INTRAOPERATIVE FLUIDS As per Anesthesia SPONGE, INSTRUMENT, AND NEEDLE COUNTS Correct at the end of the case CONDITION ON DISCHARGE FROM THE OPERATING ROOM Stable The attending, Addy Lyons MD , was present and scrubbed for the duration of the case. * Pre-Procedure Instructions - Wendy Castro NP - 11/17/2021 10:01 AM CDT Center for Preoperative Assessment and Planning CPAP Clinic Location: [facility] The night before your surgery: * Do not eat anything after midnight the night before your procedure. and * Do not smoke or use tobacco products after midnight the night before surgery. It is best to stop smoking now to improve your health. The morning of your surgery: * You may have clear liquids on your surgery day. You must stop drinking two hours before you arrive to the surgery facility. Acceptable clear liquids include water, clear sports drinks, black coffee, or clear soda. DO NOT drink any milk, creamer, or alcohol. * Your surgeon's office may have provided additional instructions or restrictions. Please follow those instructions. * You may brush your teeth and rinse your mouth out. * Do not glue your dentures. * Do not wear jewelry, body piercings, makeup, hairpins, false eyelashes or contact lenses to the hospital. * Leave any valuables at home or with your family. * If you are still having menstrual cycles, you should come with a full bladder on the morning of surgery in order to provide a urine sample. * If you have an implantable device with a remote, bring the remote with you on the day of surgery. * If you use home oxygen, bring your portable oxygen tank with you on the day of surgery * If having surgery at [facility], you may want to bring a credit card if you want to use our Mobile Pharmacy for your discharge medications. Mobile pharmacy is not available at [facility], the [facility], or the [place] for [facility]. Outpatient Surgery: * You must have a responsible adult drive you home and stay with you for 24 hours after your surgery * You cannot be alone at home or in a hotel * Please call your surgeon's office if you do not have someone to drive you home and/or stay with you after surgery * Please bring any items you may need to spend the night in the hospital. Sometimes patients need to be cared for in the hospital overnight. If you have Sleep Apnea (RODO): * Bring your CPAP/BiPAP/VPAP machine to the hospital the day of your surgery * For a few days after your surgery, you will need to wear your CPAP/ BiPAP/VPAP machine any time your are sleeping. This includes when you take a nap. Instructions For Your Medications: Pre-Surgery Instructions: Medication Instructions aspirin 81 mg enteric coated tablet Take morning of surgery atorvastatin (LIPITOR) 40 mg tablet Take morning of surgery calcium carbonate/vitamin D3 (CALCIUM 500 + D ORAL) Don't take on day of surgery ibandronate (BONIVA) 150 mg tablet Don't take on day of surgery multivitamin capsule Stop taking 1 week prior to surgery ofloxacin (OCUFLOX) 0.3 % ophthalmic solution Your surgeon will provide you with instructions for the day of surgery. prednisoLONE acetate (PRED FORTE) 1 % ophthalmic suspension Your surgeon will provide you with instructions for the day of surgery. metoprolol XL (TOPROL-XL) 25 mg extended release tablet Take morning of surgery General Instructions For Medications: * Stop all of these medications 5 days prior to your surgery: excedrin, motrin, advil, ibuprofen, aleve, naproxen, meloxicam, celebrex, celecoxib. For medications that you are instructed to take on the morning of surgery, take the medications with a few sips of water. Stop all of these medications 7-14 days prior to your surgery: Vitamin E, Herbal medicines, Diet Pills If you have pain, you may take tylenol (acetaminophen). Do not take more than 6 tablets or 3000 mg (3 g) within a 24 period. Call your surgeon and the CPAP clinic if any of the following happens before surgery: Any changes in your health You have a fever You have any signs of an infection (chest, urinary tract or tooth) You have been to the Emergency Room or were in the hospital You have started taking any new medications You have questions about a bowel prep or special diet before surgery You have symptoms of COVID-19 such as a new or worsening cough, shortness of breath, fever, body aches, loss of taste or smell, diarrhea or vomiting, or sore throat. You have a household contact with COVID-19. You test positive for COVID-19. * Perioperative Nursing Note - Keerthi Roth RN - 11/05/2021 8:28 AM CDT Center for Preoperative Assessment and Planning Perioperative Nursing Note Telephone Preoperative Evaluation ([facility]) - TELEPHONE ONLY, NO PHYSICAL EXAM Date: 11/05/21 Vitals: 11/05/21 0820 Weight: 48.1 kg (106 lb) Height: 157.5 cm (5' 2 ) CHEST CIRCUMFERENCE: NA Social History Tobacco Use Smoking Status Never Smokeless Tobacco Never Substance and Sexual Activity Drug Use Never Alcohol Use Q1: How often do you have a drink containing alcohol?: 2-4 times a month Q2: How many drinks containing alcohol do you have on a typical day when you are drinking?: 1 or 2 Q3: How often do you have six or more drinks on one occasion?: Never Outpatient Medications Marked as Taking for the 12/02/21 encounter (Hospital Encounter) Medication Sig Dispense Refill aspirin 81 mg enteric coated tablet Take 81 mg by mouth every morning atorvastatin (LIPITOR) 40 mg tablet Take 1 tablet (40 mg total) by mouth daily (Patient taking differently: Take 40 mg by mouth daily before breakfast) 90 tablet 3 calcium carbonate/vitamin D3 (CALCIUM 500 + D ORAL) Take 1 tablet by mouth every morning ibandronate (BONIVA) 150 mg tablet TAKE 1 TABLET (150 MG TOTAL) BY MOUTH EVERY 30 (THIRTY) DAYS TAKE IN AM WITH GLASS OF WATER PRIOR TO FOOD, DON'T LIE DOWN FOR 30 MINUTES. (Patient taking differently: Take 150 mg by mouth every 30 (thirty) days Take in AM with glass of water prior to food, don't lie down for 30 minutes. On the of the month) 3 tablet 3 metoprolol XL (TOPROL-XL) 25 mg extended release tablet TAKE ONE TABLET BY MOUTH ONCE DAILY (Patient taking differently: Take 25 mg by mouth every morning) 90 tablet 2 multivitamin capsule Take 1 capsule by mouth every morning ofloxacin (OCUFLOX) 0.3 % ophthalmic solution Administer 1 drop into the left eye 4 (four) times a day Start after 12-02-21 surgery 5 mL 1 prednisoLONE acetate (PRED FORTE) 1 % ophthalmic suspension Administer 1 drop into the left eye 4 (four) times a day Start after 12-02-21 surgery 10 mL 1 Implants No active implants to display in this view. SKIN Piercings Remaining: No Wound (LDAs) Type of Wound (LDA): (Denies) SCREENINGS Mario index score: 100 PATIENT CARE PLANNING Advance Directives (For Healthcare) Have you reviewed your Advance Directive and is it valid for this stay?: Not applicable Advance Directive: Patient does not have advance directive, Patient refused information Information Provided on Healthcare Directives: No Assistive Devices/DME: Eyeglasses Discharge Planning Type of Residence: Private residence Living Arrangements: Spouse/significant other Support Systems: Spouse/significant other Patient expects to be discharged to:: Private residence (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 No Have you had a COVID -19 exposure within the past 14 days? No Were both or all people exposed wearing masks (cloth, isolation, surgical or N95)? N/A TESTING PLAN-See Instructions for plan We recommend you Self-Isolate after COVID Testing: Stay at home, if possible until your surgery date. Maintain a 6 foot distance from other people (social distancing). Avoid touching your eyes, nose and mouth with unwashed hands. Wash your hands often with soap and water for at least 20 seconds. Use an alcohol- based hand electrical mechanic that contains at least 60% alcohol if soap and water are not available. ADDITIONAL COMMENTS/ FOLLOW UP * Pre-Procedure Instructions - Keerthi Roth RN - 11/05/2021 8:24 AM CDT [facility] PRE-SURGICAL NURSING INSTRUCTIONS Telephone Assessment General Information Discussed with Patient: Surgery location provided to patient. Arrival time and surgical time will be provided to the patient by their surgeon. You should wear clothing that is clean, loose, comfortable and easy to get in and out of on the dayof surgery. You should leave your valuables and any jewelry at home. No metal or piercings are allowed in the operating room. You should bring your insurance card, a photo ID (example: Valve Steamer's License) and a method of payment for any insurance copay, deductible or copay for discharge medications. You should bring a complete, up-to-date list of all your medications on the day of surgery, including any over the counter medications or supplements you may take. You should bring your Advanced Directive and/or Living Will with you on the day of surgery if you have not verified a copy is already in your Epic Chart. Eye Surgery Process for Patients: Before the surgery, you will be asked to change into a gown. As you get ready for your surgery, your nurse will ask you questions about your medical history andreview your medications with you. An IV will be placed so that we may administer medication to keep you comfortable. You will meet your surgical team. You will be taken by stretcher to the operating room for your surgery. After your surgery, you will come to the recovery area. A Fall Risk band will be placed on your arm to remind you that you are at higher risk for falling after having eye surgery. You may remove this band after 24 hours. Before you leave, your discharge team will review your medications with you and any special instructions. A Guide for Patients Having Surgery: Your Pathway to Excellent Care OUR GOAL IS TO PROVIDE YOU WITH EXCELLENT CARE Use this guide to learn about what you can do before, during and after surgery to help your recovery. You are the most important person on your health care team. By becoming informed and involved, you can contribute to the success of your surgery. If your surgeon's directions are different than those in this guide, talk with your nurse or surgeon to confirm the information. It is important that you understand how to take care of yourself at home after surgery. Be sure to bring this guide with you on the day of surgery and take it home with you after surgery. Write down questions for your nurse or surgeon on the last page of this booklet. Important pages to be reviewed BEFORE surgery: Page 1: QR codes for Surgery Center maps Page 3: Types of Anesthesia Page 5: Tips for the day & night before surgery Page 6: When to stop eating BEFORE surgery and examples of clear liquids Page 7-10: Preventing Infection: Chlorhexidine Gluconate (CHG) Bathing Instructions You may access A Guide for Patients Having Surgery: Your Pathway to Excellent Care by the followinglink: [email or web address] How To Prepare Your Skin For Surgery Below is the Pre-Surgical Bathing Protocol you should follow for your surgery. If your surgeon provides you different bathing instructions, please follow your surgeon's orders. Normal Bathing: Bathe with regular soap the night before and/or day of surgery. Normal Bathing Protocol Bathe with your normal soap the night before and the morning of surgery. Wear clean clothes or pajamas to sleep in. After showering DO NOT put on deodorant, hair products, conditioners, lotions, creams, powders, Vaseline or any non-essential products. Place clean linens on your bed the night before surgery. Shaving: You may shave your face, legs and underarms during your evening shower. Avoid shaving on the day of surgery. PREVENTING INFECTION (DECOLONIZATION): Decolonization is the use of a topical antiseptic soap and sometimes a nasal ointment to remove bacteria (germs) from the skin's surface. Antiseptic soap: Chlorhexidine gluconate or CHG (brand name: Hibiclens??) Before surgery, your entire body must be thoroughly cleaned. CHG helps to reduce the bacteria on your skin. You may be given one or more bottles of CHG or you may be asked to obtain from your preferred pharmacy. Be sure to ask your pharmacist if you need help finding this product. Nasal ointment: Mupirocin (brand name: Bactroban) Your surgeon may also prescribe a topical ointment that is rubbed inside each of the nostrils to reduce the bacteria in your nose. Mupirocin ointment requires a prescription. If needed, it will be prescribed by your surgeon and obtained from your preferred pharmacy. SHOWERING WITH ANTISEPTIC SOAP (CHG) What You Need For Each Shower 60 mL (?? cup) of CHG 2 clean washcloths CHG Bathing Instructions First, shampoo and rinse your hair with your own shampoo (no conditioners). Do this so the antiseptic soap isn't washed off by your shampoo. Wash face with warm water. Turn off shower and stand away from the water. Use 2 clean washcloths to apply the antiseptic soap to all areas as described below: Pour 30 mL (1/8 cup) of CHG on washcloth #1: Using washcloth- start at jawline and firmly massage the soap into the skin in a circular motion to clean neck, shoulders, chest, back, both armpits, arms, hands and abdomen. Finish with legs and feet. Pour 30 mL (1/8 cup) of CHG on washcloth #2: Using washcloth- firmly massage the soap into the skinin a circular motion to clean groin area, perineum and buttocks. (Do not use CHG on genital area.) Vazquez Points: The CHG antiseptic soap will not bubble or lather very much. If you get soap in your eyes, ears or mouth, rinse well with cool water. When finished, leave the soap on your skin for 2 minutes before rinsing. Dry off with a clean fresh towel. Wear clean clothes or pajamas to sleep in. After showering DO NOT put on deodorant, hair products or conditioners, lotions or creams, powders,Vaseline or any non-essential products. If you cannot reach the surgical site, such as the back, please have someone help you. Shaving: You may shave your face, legs and underarms during your evening shower before you apply the CHG antiseptic soap. Be careful not to cut or max your skin. Avoid shaving on the day of surgery. Deodorant: Patients following the 5-Day CHG protocol may apply deodorant on the days leading up to surgery, being sure, however, to avoid use on the evening before and day of surgery. All other products should be avoided for the full 5 days. 2-Day CHG Bathing Protocol The Evening Before Surgery: Take a shower with Antiseptic soap (CHG). Follow the steps for ???Showering with Antiseptic Soap (CHG)?? above. Change all linens on your bed so you are sleeping in clean fresh sheets and pillowcases. Remove nail coverings, artificial nails and nail bulgarian. The Morning of Surgery: Take a shower with Antiseptic soap (CHG). Follow the steps for ???Showering with Antiseptic Soap (CHG)?? above. Put clean clothes on after you shower. COVID TESTING PLAN (if applicable): Please note, the below is the Pre-Procedure COVID Testing Plan (if applicable) for the [facility] for [facility]esthesia. Surgeon's offices may require additional testing. If so, the surgeon's office will reach out to the patient to discuss further testing. Patient's COVID-19 vaccination status: Up to date with 3 mRNA vaccines. Documentation of vaccination status is available in the Epic Immunization tab. COVID Test Plan: COVID Test not indicated related to no COVID testing is required for surgery type. Patient has received 4th mRNA vaccine. We recommend you Self-Isolate after COVID Testing: Stay at home, if possible, until your surgery date. Maintain a 6 foot distance from other people (social distancing). Avoid touching your eyes, noseand mouth with unwashed hands. Wash your hands often with soap and water for at least 20 seconds. Use an alcohol- based hand electrical mechanic that contains at least 60% alcohol if soap and water are not available. These are general guidelines, but if have been told by a physician that you should not perform any of the above, please follow physician's guidelines. If you have questions, please call the [facility] Staff at [phone], Wednesday-Wednesday 8am-4:30pm. All patients should read the below section: All visitors/patients are being asked to wear a clean face mask when entering the hospital. COVID 19 Updates & Visitor Policy: Please access [email or web address] for the most updated information. Information on [facility]: Please view [email or web address] (Patient & Visitor Information) for additional details regarding Advanced Directive forms, AWARE, directions, parking information, lodging, Internet access, dining and more. Information on [facility] or [facility] ([facility]): Please view [email or web address] (Patient and Visitor Information) for parking/directions and more. For MyChart information, to activate account or password recovery, please go to [email or web address] or call [phone] (toll-free: [phone]). Information for Suicide Prevention: National Suicide Prevention Lifeline (6-527- 658-BKWJ (5578)). Surgery Times: For patients having surgery @ [facility], [facility] or [facility] ([facility]), if your surgeon's office has not notified you of your surgery time by NOON THE BUSINESS DAY BEFORE your surgery, please call [phone] and ask for your surgeon's office Dr. Nguyen. documented in this encounter Plan of Treatment Not on file documented as of this encounter Procedures Procedure Name Priority Date/Time Associated Diagnosis Comments EXTRACTION CATARACT - PHACOEMULSIFICATION AND LENS IMPLANT 12/02/2021 8:35 AM CDT Age-related nuclear cataract of left eye Case Notes Trypan, [facility], possible Ring Special Needs Trypan, [facility], possible Ring documented in this encounter Visit Diagnoses Diagnosis Age-related nuclear cataract of left eye- Primary Age-related nuclear cataract of left eye documented in this encounter Admitting Diagnoses Diagnosis Age-related nuclear cataract of left eye documented in this encounter Administered Medications Inactive Administered Medications - up to 3 most recent administrations Medication Order MAR Action Action Date Dose Rate Site balanced salt soln no.2 irrig. (BSS) intraocular solution As needed, Starting on Wed12/02/21 at 0853, Intra-Op Given 12/02/2021 8:53 AM CDT 30 mL BSS Plus-lidocaine 0.375%-EPINEPHrine 0.25 mg (Krystal Nelson) preservative free ophthalmic solution (total volume 1 mL) 1 mL, intracameral LEFT, Once, On Wed12/02/21 at 0845, For 1 dose, Intra-Op, Have available in the OR for surgeon administration in the left eye. Given 12/02/2021 8:53 AM CDT 0.5 mL BSS-EPINEPHrine 0.3 mg preservative free intraocular solution (total volume 500 mL) As needed, Starting on Wed12/02/21 at 0853, Intra-Op Given 12/02/2021 8:53 AM CDT 500 mL Carrier Fluids for Secondary Infusion - 0.9% Sodium Chloride 30 mL, intravenous, As needed, For priming tubing and/or flushing, Starting on Wed12/02/21 at 0639, Pre-Op, 0-250 ml/hr to flush line after IV infusions when no maintenance IV ordered. Infuse 30mL at the same rate as the secondary infusion. Run as primary IV, not intended for KVO. cefuroxime (ZINACEF) 20 mg/2 mL in sodium chloride 0.9% intracameral (premix) 20 mg 20 mg (2 mL), intracameral LEFT, Once, On Wed12/02/21 at 0845, For 1 dose, Intra-Op, Have available in the OR for surgeon administration in the left eye. Given 12/02/2021 8:53 AM CDT 0.1 mL chondroitin sulf-sod hyaluron (DUOVISC) 3 %-4 %(0.5 mL) 1 % (0.55 mL) intraocular kit As needed, Starting on Wed12/02/21 at 0854, Intra-Op Given 12/02/2021 8:54 AM CDT 1 kit DILATING COCKTAIL OPHTHALMIC GEL ophthalmic solution - ADS Override Pull Starting on Wed12/02/21 at 0641, For 1 dose, Created by cabinet override Ingredients per 0.3 mL Lidocaine 2% jelly 0.214 mL Phenylephrine 10% ophth drops 0.021 mL Cyclopentolate 1% ophth drops 0.021 mL Tropicamide 1% ophth drops 0.021 mL Ketorolac 0.5% ophth drops 0.021 mL dilating cocktail ophthalmic solution 0.3 mL 0.3 mL, left eye, Every 15 min, First dose on Wed12/02/21 at 0715, For 2 doses, Pre-Op, Ingredients per 0.3 mL Lidocaine 2% jelly 0.214 mL Phenylephrine 10% ophth drops 0.021 mL Cyclopentolate 1% ophth drops 0.021 mL Tropicamide 1% ophth drops 0.021 mL Ketorolac 0.5% ophth drops 0.021 mL, Indications: Mydriasis During Ocular SurgeryIndications:Mydriasis During Ocular Surgery Given 12/02/2021 7:30 AM CDT 0.3 mL Given 12/02/2021 7:03 AM CDT 0.3 mL povidone-iodine (BETADINE PREP) 5 % ophthalmic solution As needed, Starting on Wed12/02/21 at 0853, Intra-Op Given 12/02/2021 8:53 AM CDT 30 mL sodium chloride 0.9% flush 0.5-20 mL 0.5-20 mL, intra-catheter, Every 8 hours scheduled, First dose on Wed12/02/21 at 0715, Pre-Op, Flush volume based on line type and size. sodium chloride 0.9% flush 0.5-20 mL 0.5-20 mL, intra-catheter, As needed, line care, Starting on Wed12/02/21 at 0639, Pre-Op, Flush volume based on line type and size. Flush before and after each use. tetracaine (PF) (ALTACAINE) 0.5 % ophthalmic solution As needed, Starting on Wed12/02/21 at 0854, Intra-Op, Indications: Administration of Corneal AnesthesiaIndications:Administ ration of Corneal Anesthesia Given 12/02/2021 8:54 AM CDT 2 drops tobramycin-dexAMETHasone (TOBRADEX) 0.3-0.1 % ophthalmic ointment As needed, Starting on Wed12/02/21 at 0854, Intra-Op Given 12/02/2021 8:54 AM CDT 1 application (deactivated) trypan blue (VISIONBLUE) 0.06 % intraocular solution As needed, Starting on Wed12/02/21 at 0854, Intra-Op, Indications: Cataract Surgery Adjunct to Enhance VisualizationIndications:Catar act Surgery Adjunct to Enhance Visualization Given 12/02/2021 8:54 AM CDT 0.5 mL documented in this encounter Discontinued Medications Medication Sig Discontinue Reason Start Date End Da te donepeziL (ARICEPT) 5 mg tabletIndications:Short- term memory loss TAKE 1 TABLET BY MOUTH EVERY DAY AT NIGHT Error 10/27/2021 11/05/2021 documented as of this encounter Active and Recently Administered Medications Times are shown in CDT. Scheduled Medication Order 11/30/2021 12/01/2021 12/02/2021 BSS Plus-lidocaine 0.375%-EPINEPHrine 0.25 mg (Krystal Nelson) preservative free ophthalmic solution (total volume 1 mL) (COMPLETED) 1 mL, intracameral LEFT, Once, On Wed12/02/21 at 0845, For 1 dose, Intra-Op, Have available in the OR for surgeon administration in the left eye. 0845 (Due)0853 (Give n - Provider: Addy Nguyen MD) cefuroxime (ZINACEF) 20 mg/2 mL in sodium chloride 0.9% intracameral (premix) 20 mg (COMPLETED) 20 mg (2 mL), intracameral LEFT, Once, On Wed12/02/21 at 0845, For 1 dose, Intra-Op, Have available in the OR for surgeon administration in the left eye. 0845 (Due)0853 (Give n - Provider: Addy Nguyen MD) dilating cocktail ophthalmic solution 0.3 mL (COMPLETED) 0.3 mL, left eye, Every 15 min, First dose on Wed12/02/21 at 0715, For 2 doses, Pre-Op, Ingredients per 0.3 mL Lidocaine 2% jelly 0.214 mL Phenylephrine 10% ophth drops 0.021 mL Cyclopentolate 1% ophth drops 0.021 mL Tropicamide 1% ophth drops 0.021 mL Ketorolac 0.5% ophth drops 0.021 mL, Indications: Mydriasis During Ocular Surgery 0703 (Given - Provid er: Arely Ramsey RN)0730 (Given - Provider: Arely Ramsey RN) sodium chloride 0.9% flush 0.5-20 mL 0.5-20 mL, intra-catheter, Every 8 hours scheduled, First dose on Wed12/02/21 at 0715, Pre-Op, Flush volume based on line type and size. 0715 (Due) sodium chloride 0.9% flush 0.5-20 mL(Linked Group 1) 0.5-20 mL, intra-catheter, Every 8 hours scheduled, First dose on Wed12/02/21 at 0715, Pre-Op, Flush volume based on line type and size. 0715 (Due) PRN Medication Order 11/30/2021 12/01/2021 12/02/2021 balanced salt soln no.2 irrig. (BSS) intraocular solution (CANCELED) As needed, Starting on Wed12/02/21 at 0853, Intra-Op 0853 (Given - Provid er: Addy Nguyen MD) BSS-EPINEPHrine 0.3 mg preservative free intraocular solution (total volume 500 mL) (CANCELED) As needed, Starting on Wed12/02/21 at 0853, Intra-Op 0853 (Given - Provid er: Addy Nguyen MD) Carrier Fluids for Secondary Infusion - 0.9% Sodium Chloride(Linked Group 1) 30 mL, intravenous, As needed, For priming tubing and/or flushing, Starting on Wed12/02/21 at 0639, Pre-Op, 0-250 ml/hr to flush line after IV infusions when no maintenance IV ordered. Infuse 30mL at the same rate as the secondary infusion. Run as primary IV, not intended for KVO. chondroitin sulf-sod hyaluron (DUOVISC) 3 %-4 %(0.5 mL) 1 % (0.55 mL) intraocular kit (CANCELED) As needed, Starting on Wed12/02/21 at 0854, Intra-Op 0854 (Given - Provid er: Addy Nguyen MD) lidocaine PF (XYLOCAINE) 10 mg/mL (1 %) preservative free injection 2-10 mg 2-10 mg (0.2-1 mL), other, Once as needed, pain with IV placement, Starting on Wed12/02/21 at 0639, For 1 dose, Pre-Op, Administer volume needed to infiltrate IV site. naloxone (NARCAN) 0.4 mg/mL injection 0.04-0.4 mg 0.04-0.4 mg, intravenous, Once as needed, other, excessive sedation/respiratory depression, Starting on Wed12/02/21 at 1002, For 1 dose, Phase I, Dilute 0.4 mg with 9 mL NS (final concentration 0.04 mg/mL). For respiratory depression (respiratory rate less than 6), administer 0.4 mg IVP over 30 seconds. For excessive sedation administer 0.04 mg (1 mL) every 1 minute until desired level of alertness. For IV, administer over 30 seconds., Indications: Opioid Toxicity ondansetron (ZOFRAN) injection 4 mg 4 mg, intravenous, Administer over 2 Minutes, Once as needed, nausea, vomiting, Starting on Wed12/02/21 at 1002, For 1 dose, Phase I, Proceed to prochlorperazine if ondansetron has been given within the last 6 hours. povidone-iodine (BETADINE PREP) 5 % ophthalmic solution (CANCELED) As needed, Starting on Wed12/02/21 at 0853, Intra-Op 0853 (Given - Provid er: Megha Rubin - Comment: prep) prochlorperazine (COMPAZINE) injection 5 mg 5 mg, intravenous, Administer over 2 Minutes, Every 15 min PRN, nausea, vomiting, Starting on Wed12/02/21 at 1002, For 2 doses, Phase I, If nausea/vomiting not relieved by ondansetron within 30 minutes or if ondansetron has been given within the last 6 hours. sodium chloride 0.9% flush 0.5-20 mL 0.5-20 mL, intra-catheter, As needed, line care, Starting on Wed12/02/21 at 0639, Pre-Op, Flush volume based on line type and size. Flush before and after each use. sodium chloride 0.9% flush 0.5-20 mL(Linked Group 1) 0.5-20 mL, intra-catheter, As needed, line care, Starting on Wed12/02/21 at 0639, Pre-Op, Flush volume based on line type and size. Flush before and after each use. tetracaine (PF) (ALTACAINE) 0.5 % ophthalmic solution (CANCELED) As needed, Starting on Wed12/02/21 at 0854, Intra-Op, Indications: Administration of Corneal Anesthesia 0854 (Given - Provid er: Addy Nguyen MD) tobramycin-dexAMETHasone (TOBRADEX) 0.3-0.1 % ophthalmic ointment (CANCELED) As needed, Starting on Wed12/02/21 at 0854, Intra-Op 0854 (Given - Provid er: Addy Nguyen MD) trypan blue (VISIONBLUE) 0.06 % intraocular solution (CANCELED) As needed, Starting on Wed12/02/21 at 0854, Intra-Op, Indications: Cataract Surgery Adjunct to Enhance Visualization 0854 (Given - Provid er: Addy Nguyen MD) Linked Groups Order Group 1: Saline lock IV (CANCELED) Routine, Once (Routine), On Wed12/02/21 at 0640, For 1 occurrence, Pre-Op And sodium chloride 0.9% flush 0.5-20 mLJump to med 0.5-20 mL, intra-catheter, Every 8 hours scheduled, First dose on Wed12/02/21 at 0715, Pre-Op, Flush volume based on line type and size. And sodium chloride 0.9% flush 0.5-20 mLJump to med 0.5-20 mL, intra-catheter, As needed, line care, Starting on Wed12/02/21 at 0639, Pre-Op, Flush volume based on line type and size. Flush before and after each use. And Carrier Fluids for Secondary Infusion - 0.9% Sodium ChlorideJump to med 30 mL, intravenous, As needed, For priming tubing and/or flushing, Starting on Wed12/02/21 at 0639, Pre-Op, 0-250 ml/hr to flush line after IV infusions when no maintenance IV ordered. Infuse 30mL at the same rate as the secondary infusion. Run as primary IV, not intended for KVO. documented in this encounter Orders Medications Ordered That Baudilio ht Not Have Been Administered Count Last Ordered Date First Ordered Date Carrier Fluids for Secondary Infusion - 0.9% Sodium Chloride 1 12/02/2021 lidocaine PF (XYLOCAINE) 10 mg/mL (1 %) preservative free injection 2-10 mg 1 12/02/2021 naloxone (NARCAN) 0.4 mg/mL injection 0.04-0.4 mg 1 12/02/2021 ondansetron (ZOFRAN) injection 4 mg 12/02 prochlorperazine (COMPAZINE) injection 5 mg 1 12/02/2021 sodium chloride 0.9% flush 0.5-20 mL 4 11/07 documented in this encounter Care Teams Director [facility] Relationship Specialty Start Date End Date Beau Clement MD [address] [place] [address] PCP - Essence Attributed PCP 03/08/17 Beau Clement MD [address] [place] [address] PCP - General Family Medicine 07/13/18 documented as of this encounter
--- OUTSIDE RECORDS SUMMARY | 2024-03-18 22:41 | XMS_ITS | Encounter Summary ---
Author Organization [facility] Address [address] [facility] [address] [place] [id number] Care Team Providers Care Application Support Name Role Phone Beau Clement MD Unavailable +- [phone] Beau Clement MD Primary Care Provid er Reason for Visit * Reason Comments Follow-up Pt here for [facility] ER f /u for groin pain. Pt states she is doing well today, but having some back pain. Encounter Details Date Type Department Care Team (Late st Contact Info) Description 02/13/2022 10:45 AM FIXED ASSETS ACCOUNTANT Office Visit [facility] Family Medicine [address] [address] Beau Clement MD [address] [place] [id number] Chronic right-sided low back pain with right-sided sciatica (Primary Dx); Right groin pain; Lumbar foraminal stenosis; Late onset Alzheimer's dementia without behavioral disturbance (HCC); Generalized anxiety disorder Social History Tobacco Use Types Packs/Day Years [...] on file Legal Sex Female 8:34 AM FIXED ASSETS ACCOUNTANT Gender Identity Female 08/22/2019 6:09 AM CDT Sexual Orientation Straight 08/22/2019 6: 09 AM CDT documented as of this encounter Last Filed Vital Signs Vital Sign Reading Time Taken Comments Blood Pressure 126/60 02/13/2022 10:23 AM FIXED ASSETS ACCOUNTANT Pulse 63 02/13/2022 10:23 AM FIXED ASSETS ACCOUNTANT Temperature 36.5 ??C (97.7 ??F) 02/13/2022 10:[address] Respiratory Rate 16 02/13/2022 10:23 AM FIXED ASSETS ACCOUNTANT Oxygen Saturation 98% 02/13/2022 10:23 AM FIXED ASSETS ACCOUNTANT Inhaled Oxygen Concentration - - Weight 45 kg (99 lb 4.8 oz) 02/13/2022 10:23 AM FIXED ASSETS ACCOUNTANT Height 165.1 cm (5' 5 ) 02/13/2022 10:23 AM FIXED ASSETS ACCOUNTANT Body Mass Index 16.52 02/13/2022 10:23 AM FIXED ASSETS ACCOUNTANT documented in this encounter Ordered Prescriptions Prescription Sig Dispense Quantity Refills Last Filled Start Date End Date DULoxetine DR (CYMBALTA) 30 mg capsule Take 1 capsule (30 mg total) by mouth 2 (two) times a day 90 capsule 3 02/13/2022 3 documented in this encounter Progress Notes * Beau Clement MD - 02/13/2022 10:45 AM CST Subjective/Objective Patient ID: Dottie Bryant is a 76 y.o. female. Chief Complaint Chief Complaint Patient presents with Follow-up Pt here for [facility] ER f/u for groin pain. Pt states she is doing well today, but having some back pain. HPI Pain has been dealing with worsening back pain, rating down into her leg and groin, for the past month, but particularly bad over the past week. This has also been exacerbating her anxiety. She was seen in the ER earlier this week, and we have been dealing with several of her symptoms over the phone as well. She is here with her today, and her pain is better controlled with the medications we have started. Addition, her anxiety is better as well. The patient's ER notes, reports, and studies reviewed. The patient's past medical history, surgical history, family history, social history were reviewed today. Review of [...] for dysuria, frequency, hematuria and urgency. Musculoskeletal: Positive for back pain (Radiating into right leg and groin). Negative for arthralgias, joint swelling and myalgias. Skin: Negative for rash. Neurological: Negative for dizziness, weakness, light-headedness and headaches. Psychiatric/Behavioral: Negative for decreased concentration and sleep disturbance. The patient is nervous/anxious. Physical Exam Vitals and nursing note [...] normal. Behavior: Behavior normal. Behavior is cooperative. Cognition and Memory: Cognition normal. Memory is impaired. Assessment/Plan Diagnoses and all orders for this visit: Chronic right-sided low back pain with right-sided sciatica (Primary) Right groin pain Lumbar foraminal stenosis Late onset Alzheimer's dementia without behavioral disturbance (HCC) Generalized anxiety disorder Other orders - DULoxetine DR (CYMBALTA) 30 mg capsule; Take 1 capsule (30 mg total) by mouth 2 (two) times a day Plan: 1. Acute on chronic right sided low back pain radiating to the right groin with known lumbar foraminal stenosis: The patient is much improved on an occasional hydrocodone. Continue the current regimen, but I am going to add Cymbalta for nerve pain as well. Reassess in 2 weeks. 2. Alzheimer's: Unfortunately, she is worse today than the last time I saw her in this regard. Confirmed by her neurologist. Continue Aricept. Continue to monitor. 3. Anxiety: Continue low-dose Ativan as needed. Starting the duloxetine, as above. It should help both nerve pain and anxiety. Continue to monitor. D ASSETS ACCOUNTANT documented in this encounter Plan of Treatment Not on file documented as of this encounter Visit Diagnoses Diagnosis Chronic right-sided low back pain with right-sided sciatica- Primary Right groin pain Abdominal pain, right lower quadrant Lumbar foraminal stenosis Late onset Alzheimer's dementia without behavioral disturbance (HCC) Generalized anxiety disorder documented in this encounter Discontinued Medications Medication Sig Discontinue Reason Start Date End Da te donepeziL (ARICEPT) 5 mg tablet Take 1 tablet (5 mg total) by mouth nightly 01/14/2022 02/13/2022 documented as of this encounter Care Teams Application Support Relationship Specialty Start Date End Date Beau Clement MD [address] [place] [address] PCP - Essence Attributed PCP 03/08/17 Beau Clement MD [address] [place] [address] PCP - General Family Medicine 07/13/18 documented as of this encounter
--- OUTSIDE RECORDS SUMMARY | 2024-03-18 22:41 | XMS_ITS | Encounter Summary ---
Author Organization [facility] Address [address] [place] [address] Care Team Providers Care Prosthetist Name Role Phone Beau Clement MD Unavailable [phone] Beau Clement MD Primary Care Provid er Encounter Details Date Type Department Care Team (Late st Contact Info) Description 02/10/[address] [address] Zayra Leary, BOBBY Social History Tobacco Use Types Packs/Day [...] on file Legal Sex Female 8:34 AM NAPPER GRINDER Gender Identity Female 08/22/2019 6:09 AM CDT Sexual Orientation Straight 08/22/2019 6: 09 AM CDT documented as of this encounter ED Notes * Zayra Leary RN - 02/10/2022 10:02 AM CST This RN attempted to call the pt as a LWBS follow up with no success. VM left with call back numberprovided. Zayra Leary RN 02/10/22 1003 ER GRINDER documented in this encounter Plan of Treatment Not on file documented as of this encounter Visit Diagnoses Not on filedocumented in this encounter Care Teams Prosthetist Relationship Specialty Start Date End Date Beau Clement MD [address] [place] [address] PCP - Essence Attributed PCP 03/08/17 Beau Clement MD [address] [place] [address] PCP - General Family Medicine 07/13/18 documented as of this encounter
--- OUTSIDE RECORDS SUMMARY | 2024-03-18 22:41 | XMS_ITS | Encounter Summary ---
Author Organization [facility] Address [address] [place] [address] Care Team Providers Care Automation Operator Name Role Phone Beau Clement MD Unavailable +- [phone] Beau Clement MD Primary Care Provid er Reason for Visit * Auth/Cert Specialty Diagnoses / Procedures Referred By Dede cat Referred To Contact Diagnoses Age-related nuclear cataract of left eye Age-related nuclear cataract of left eye [H25.12] Procedures RI REMV CATARACT EXTRACAP,INSERT LENS,COMP RI REMV CATARACT EXTRACAP,INSERT LENS LEFT EXTRACTION CATARACT - PHACOEMULSIFICATION AND LENS IMPLANT Referral ID Status Reason Start Date Expiration Date Visits Re quested Visits Authorized [id number] 1 1 Encounter Details Date Type Department Care Team (Late st Contact Info) Description 12/02/2021 8:35 AM CDT Anesthesia Event [facility] Operating Room [address] [place] [facility] [place] [address] Messi Bravo MD [address] [facility] [id number] [place] [address] Anesthesia Record Procedure Summary Procedure Name Responsible Anesthesiologist Anesthesia Start Time Anesthesia Stop Time LEFT EXTRACTION CATARACT - PHACOEMULSIFICATION AND LENS IMPLANT (Left: Eye) Messi Bravo MD 12/02/21 0835 12/02/21 09 15 Events Date Time Event Comment 12/02/2021 0742 0835 AN Equip Check 0835 An Start 0835 An Start Data 0835 In Room 0836 HOB turned 90 degrees 0838 Start Supplemental O2 0839 An Induction The patient was reevaluated immediately before moderate or deep sedation use and before anesthesia induction. 0839 Anesthesia Ready 0848 Proc Start 0848 Incision Start 0907 Proc Fin 0910 Out of Room 0910 an stop data 0915 Handoff to RN I completed my handoff to the receiving nurse during which we: 1. Patient identified 2. Responsible provider identified 3. Pertinent medical history reviewed 4. Procedure type and surgical course discussed 5. Intraoperative anesthetic management and any significant issues discussed 6. Expectations and concerns for postop period discussed 7. Questions solicited from receiving nurse 8. Patient disposition at the time of handoff: PACU 0915 An Stop 0937 Release from care Meds Name Total fentaNYL PF 50 mcg midazolam 2 mg/2 mL 2 mg LR 200 mL * Agents Name O2 N2O Air * Blood No blood administrations on file. Lines, Drains, and Airways Type Details Placement Removal Peripheral IV Placement Date: 12/02/21; Placement Time: 711; Catheter Size: 22 G; Orientation: Anterior, Left, Proximal; Location: Forearm; Removal Date: 12/02/21; Removal Time: 0950 12/02/21 0712 by Arely Ramsey RN 12/02/21 0950 by Larissa Olivia, BOBBY RETIRED Surgical Site 12/02/21; 0811; Le ft; Eye; 02/08/24 (Retired LDA, Removed/Completed by [place] with LDA Utility); 1213 (Retired LDA, Removed/Completed by [employer] with LDA Utility) 12/02/21 0811 by Megha Rubin RN 02/08/24 1213 by Discharge Provider, Automatic RETIRED Surgical Site 12/02/21; 0811; Le ft; Face; 02/08/24 (Retired LDA, Removed/Completed by [employer] with LDA Utility); 1213 (Retired LDA, Removed/Completed by [employer] with LDA Utility) 12/02/21 0811 by Megha Rubin RN 02/08/24 1213 by Discharge Provider, Automatic documented in this encounter Social History Tobacco [...] on file Legal Sex Female 8:34 AM 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 AND 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 Gender Identity Female 08/22/2019 6:09 AM CDT Sexual Orientation Straight 08/22/2019 6: 09 AM CDT documented as of this encounter OR Notes * Anesthesia Postprocedure Evaluation - Messi Bravo MD - 12/02/2021 9:37 AM CDT Patient: Dottie Bryant Procedure Summary Date: 12/02/21 Room / Location: [facility] Anesthesia Start: 834 Anesthesia Stop: 914 Procedure: LEFT EXTRACTION CATARACT - PHACOEMULSIFICATION AND LENS IMPLANT (Left: Eye) Diagnosis: Age-related nuclear cataract of left eye (Age-related nuclear cataract of left eye [H25.12]) Surgeons: Addy Nguyen MD Responsible Provider: Messi Bravo MD Anesthesia Type: MAC ASA Status: 3 Anesthesia Type: MAC Last vitals BP 169/74 Pulse 58 Temp 36.4 ??C (97.5 ??F) (Temporal) Resp 20 SpO2 96% Anesthesia Post Evaluation Patient location during evaluation: PACU Patient participation: complete - patient participated Level of consciousness: fully awake Pain management: satisfactory to patient Airway patency: adequate and patent Cardiovascular status: acceptable and hemodynamically stable Respiratory status: acceptable and room air Hydration status: acceptable Pt is: normothermic Nausea/Vomiting status: none No notable events documented. * Anesthesia Preprocedure Evaluation - Messi Bravo MD - 11/17/2021 10:08 AM CDT Images from the original note were not included. [facility] Preoperative Assessment and Planning Preoperative Evaluation Record Evaluation type/location: [facility]: 11/17/21 NOTE: This note represents a preoperative evaluation initiated via telephone interview. NO PHYSICALEXAM was performed at the time of initial assessment. A physical exam may be added to this note anddocumented below. Anesthesia Evaluation Dottie Bryant is a 76 y.o. female Procedure(s): LEFT EXTRACTION CATARACT - PHACOEMULSIFICATION AND LENS IMPLANT Pre-Op Diagnosis Codes: * Age-related nuclear cataract of left eye [H25.12] HISTORY HPI Dottie Bryant is a 76 y.o. female who is being evaluated prior to undergoing left cataract extraction Past Medical History Information obtained from: patient and chart. Neurological + TIA Pertinent negatives: seizures; neuromuscular disease and CVA/stroke Cardiovascular + Hypertension Typical systolic BP - 130 + Hyperlipidemia Pertinent negatives: CAD ; OH ; CABG ; valvular heart disease; atrial fibrillation; pacemaker/ICD; DVT/PE; negative for CHF; drug-eluting stent(s) and bare metal stent(s) Respiratory Pertinent negatives: COPD; sleep apnea (RODO); pulmonary hypertension; no O2 use outside the hospital and non-smoker Hepatic / Heme Pertinent negatives: liver disease Gastrointestinal Pertinent negatives: GERD Renal / Pertinent negatives: renal disease and dialysis Endocrine / Other Pertinent negatives: diabetes mellitus; thyroid disease; obesity (BMI >30); cancer history; transplanted organ and infectious disease Functional Capacity Functional capacity: 4-6 METs Comments: Walks dog 1 mile per day at least- multiple times per day Review of Systems Pertinent negatives: productive cough; wheezing; SOB; recent cold/flu; fever; chest pain; palpitations; orthopnea; pedal edema; PND; previous transfusion; easy bruising; bleeding problems; syncope; heartburn and dysphagia Comments: occ sinus/post nasal drip with season changes PAT Summary and Plans Cardiac risk classification of planned procedure: low cardiac risk. Preoperative assessment status: complete. Initial preoperative evaluation discussed with: Obi Garcia MD Additional comments: Dottie Bryant is a 76 y.o. female who is being evaluated prior to undergoing a low cardiac risk surgery. Revised Cardiac Risk Index factors are (history of cerebrovascular disease) for a total RCRI of 1 out of 6. Functional capacity is 4-6 METs. NOTE: This note represents a preoperative evaluation initiated via telephone interview. NO PHYSICALEXAM was performed at the time of initial assessment. A physical exam may be added to this note anddocumented below. Obstructive sleep apnea (RODO) screening status is STOP-BANG incomplete but suspected to be 0-2 suggesting low risk for RODO. Neck circumference pending.. Blood bank needs for day of procedure: No type and screen needed Pending labs/tests include: None COVID PLAN: Patient's COVID19 status is: Unexposed. The patient currently has no concerning symptoms of COVID19. . Patient's COVID-19 vaccination status is Up to date with 3 mRNA vaccines. Documentation of vaccination status is available in the Epic Immunization tab. . Plan for pre-procedure COVID19 testing: Patient is asymptomatic and up to date with their COVID-19 vaccine. COVID-19 testing not indicated. ::} Patient being evaluated for memory loss by PCP. MRI 10/15/2021: 1. No acute/recent infarction. 2. Chronic lacunar infarctions, chronic microvascular ischemic type white-matter changes and additional findings as described. 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 Increased atorvastatin and remains on aspirin. Discussedwith CPAP attending. No further workup required. ::} Per CPAP ophthalmology protocol, patient is to CONTINUE anticoagulant and antiplatelet agents :aspirin Patient instructions were provided via telephone and in writing sent via [employer]. Patient verbalized understanding of preoperative plan. TPAP Complete Preoperative evaluation performed by Wendy Castro NP on 11/17/21 at 10:12 AM . Patient Active Problem List Diagnosis ??? Dyslipidemia ??? Essential (primary) hypertension ??? Osteopenia ??? Varicose veins of both lower extremities ??? Vitamin D deficiency ??? Lung nodule ??? Age-related nuclear cataract of left eye ??? Syncopal episodes ??? Retinal drusen of both eyes ??? Pseudophakia of right eye ??? Posterior vitreous detachment of right eye Past Medical History: Diagnosis Date ??? Dyslipidemia ??? Hypertension ??? Osteopenia ??? TIA (transient ischemic attack) memory loss started 3 months ago July 2021. Unsure of TIA occurance ??? Vitamin D deficiency Past Surgical History: Procedure Laterality Date ??? CARDIAC ELECTROPHYSIOLOGY MAPPING AND ABLATION 2019 ??? CATARACT EXTRACTION 2017 ??? SECTION 01/1975 ??? EYE SURGERY 2017 ??? SKIN CANCER EXCISION 2014 nose ??? VEIN SURGERY 12/1997 OB History 2 Para 2 Term 2 AB Living SAB IAB Ectopic Multiple Live Births Allergies Allergen Reactions ??? Celecoxib Rash Med List Status: Nurse Complete Set By: Keerthi Roth RN at 11/05/2021 8:15 AM Taking? Last Dose Start Date End Date Provider aspirin 81 mg enteric coated tablet 11/04/2021 -- -- Anny Fleming MD atorvastatin (LIPITOR) 40 mg tablet 11/04/2021 10/31/21 10/31/22 Beau Celment MD Take 1 tablet (40 mg total) by mouth daily Patient taking differently: Take 40 mg by mouth daily before breakfast calcium carbonate/vitamin D3 (CALCIUM 500 + D ORAL) 11/04/2021 -- -- Anny Fleming MD ibandronate (BONIVA) 150 mg tablet Past Month 10/06/21 10/06/22 Beau Clement MD TAKE 1 TABLET (150 MG TOTAL) BY MOUTH EVERY 30 (THIRTY) DAYS TAKE IN AM WITH GLASS OF WATER PRIOR TO FOOD, DON'T LIE DOWN FOR 30 MINUTES. Patient taking differently: Take 150 mg by mouth every 30 (thirty) days Take in AM with glass of water prior to food, don't lie down for 30 minutes. On the of the metoprolol XL (TOPROL-XL) 25 mg extended release tablet -- 11/11/21 -- Beau Clement MD TAKE 1 TABLET BY MOUTH EVERY DAY multivitamin capsule 11/04/2021 -- -- Anny Fleming MD ofloxacin (OCUFLOX) 0.3 % ophthalmic solution -- 10/24/21 -- Addy Nguyen MD Administer 1 drop into the left eye 4 (four) times a day Start after 12-02-21 surgery prednisoLONE acetate (PRED FORTE) 1 % ophthalmic suspension -- 10/24/21 -- Addy Nguyen MD Administer 1 drop into the left eye 4 (four) times a day Start after 12-02-21 surgery Notes: This is the generic version, there is not a suitable substitute. No current facility-administered medications for this encounter. Current Outpatient Medications: ??? aspirin 81 mg enteric coated tablet ??? atorvastatin (LIPITOR) 40 mg tablet ??? calcium carbonate/vitamin D3 (CALCIUM 500 + D ORAL) ??? ibandronate (BONIVA) 150 mg tablet ??? multivitamin capsule ??? ofloxacin (OCUFLOX) 0.3 % ophthalmic solution ??? prednisoLONE acetate (PRED FORTE) 1 % ophthalmic suspension ??? metoprolol XL (TOPROL-XL) 25 mg extended release tablet Social History Tobacco Use Smoking Status Never Smokeless Tobacco Never Alcohol Use: Not At Risk ??? Frequency of Alcohol Consumption: 2-4 times a month ??? Average Number of Drinks: 1 or 2 ??? Frequency of Binge Drinking: Never Substance and Sexual Activity Drug Use Never Family History Problem Relation Age of Onset ??? Heart attack Mother ??? Heart attack Father ??? Diabetes Son ??? Anesthesia problems Neg Hx There were no vitals filed for this visit. Relevant diagnostics: ECG(s): N/A Echocardiogram(s): N/A Stress test(s): N/A Cardiac catheterization(s): N/A PFT(s): N/A Vascular studies: N/A Other: MRI 10/15/2021 IMPRESSION: ? 1. No acute/recent infarction. ?? 2. Chronic lacunar infarctions, chronic microvascular ischemic type white-matter changes and additional findings as described. ?? 3. Previous imaging studies are not available for comparison. PT: No results found for requested labs within last 720 hours. INR: No results found for requested labs within last 720 hours. APTT: No results found for requested labs within last 720 hours. Hgb A1C: No results found for requested labs within last 720 hours. CBC RBC: 11/17/2021: 3.89 M/cumm (L) RDW: No results found for requested labs within last 720 hours. MCHC: 11/17/2021: 32.6 g/dL MCH: 11/17/2021: 31.6 pg MCV: 11/17/2021: 96.9 fL (H) Hct: 11/17/2021: 37.7 % Hgb: 11/17/2021: 12.3 g/dL WBC: 11/17/2021: 6.9 K/cumm MPV: 11/17/2021: 8.6 fL (L) Platelets: 11/17/2021: 331 K/cumm RDW CV: 11/17/2021: 13.6 % RDW Sd: 11/17/2021: 48.3 fL (H) BMP Glucose: 11/17/2021: 106 mg/dL Calcium: 11/17/2021: 9.9 mg/dL Sodium: 11/17/2021: 140 mmol/L Potassium: 11/17/2021: 4.6 mmol/L CO2: 11/17/2021: 28 mmol/L Chloride: 11/17/2021: 102 mmol/L BUN: 11/17/2021: 15 mg/dL Creatinine: 11/17/2021: 0.90 mg/dL Mario index score: 100 DOS Physical Exam Medical history, medications, and allergies reviewed. Attestation: This PAT evaluation Airway Exam: Mallampati: II Cervical ROM: FROM Cardiovascular Exam: Rate: regular Rhythm: regular Negative for Murmur Pulmonary Exam: LCTA, bilat EENT Exam: trachea midline Dental Exam: Chipped Skin Exam: Skin is warm and dry. Current state: Patient's current state is cooperative and interactive. Anesthesia Plan ASA 3 My patient is approved for the Anesthesia Controlled Medication protocol when under care of a MANAGER DATA WAREHOUSE Planned anesthesia: MAC Postoperative Plan: No plan for postoperative opioid use. Patient's planned disposition post procedure is Outpatient. Informed Consent: Anesthesia plan and risks discussed with patient and spouse. Plan and Consent Comments: Topical/ intra-cameral local anesthetic by surgical team. IV medications to minimal sedation thereafter, but avoidance of midazolam given present issues with memory. Consent and Attending signature: I and/or my designee have discussed the anesthesia plan, benefits, possible alternatives, parental presence at time of induction (if indicated), and clinically relevant risks that may include dental injury, unintentional awareness, and/or other complications. The patient and/or parent/legal guardian understand, and agree to proceed. All questions answered. documented in this encounter Plan of Treatment Not on file documented as of this encounter Visit Diagnoses Not on filedocumented in this encounter Administered Medications Inactive Administered Medications - up to 3 most recent administrations Medication Order MAR Action Action Date Dose Rate Site fentaNYL (SUBLIMAZE) preservative free injection intravenous, As needed, Starting on Wed12/02/21 at 0839, Anesthesia Intra-op Given 12/02/2021 8:57 AM CDT 25 mcg Given 12/02/2021 8:39 AM CDT 25 mcg Lactated Ringer's (LR) infusion intravenous, Continuous PRN, Starting on Wed12/02/21 at 0835, Anesthesia Intra-op New Bag 12/02/2021 8:35 AM CDT midazolam (VERSED) 1 mg/mL injection intravenous, As needed, Starting on Wed12/02/21 at 0835, Anesthesia Intra-op Given 12/02/2021 8:57 AM CDT 1 mg Given 12/02/2021 8:35 AM CDT 1 mg documented in this encounter Care Teams Automation Operator Relationship Specialty Start Date End Date Beau Clement MD [address] [place] [address] PCP - Essence Attributed PCP 03/08/17 Beau Clement MD [address] [place] [address] PCP - General Family Medicine 07/13/18 documented as of this encounter
--- OUTSIDE RECORDS SUMMARY | 2024-03-18 22:41 | XMS_ITS | Encounter Summary ---
Author Organization [facility] Address [address] [place] [address] Phone Care Team Providers Care Rubber Goods Inspector Name Role Phone Beau Clement MD Unavailable +1- [phone] Beau Clement MD Primary Care Provid er Reason for Visit * Diagnostic Imaging (Routine) - Closed Specialty Diagnoses / Procedures Referred By Contac t Referred To Contact Diagnoses Optic nerve drusen, bilateral Procedures Sagastume Visual Field - OU - Both Eyes Addy Nguyen MD Phone: tel: fax: [facility] (All Locations) Referral ID Status Reason Start Date Expiration Date Visits Re quested Visits Authorized [id number] Closed 12/09/2021 01/08/2023 1 1 Encounter Details Date Type Department Care Team (Late st Contact Info) Description 12/10/2021 1:20 PM CDT Imaging Exam [facility] Ophthalmology [address] [facility] 6th [place] [address] Optic nerve drusen, bilateral Social History Tobacco [...] on file 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 Gender Identity Female 08/22/2019 6:09 AM CDT Sexual Orientation Straight 08/22/2019 6: 09 AM CDT documented as of this encounter Plan of Treatment Not on file documented as of this encounter Procedures Procedure Name Priority Date/Time Associated Diagnosis Comments SAGASTUME VISUAL FIELD - OU - BOTH EYES Routine 12/10/2021 1:37 PM CDT Optic nerve drusen, bilateral documented in this encounter Results * Sagastume Visual Field [...] FT, generalized derpession us Addy Nguyen MD OPHTH VISUAL FIELD Fi nal Result documented in this encounter Visit Diagnoses Diagnosis Optic nerve drusen, bilateral documented in this encounter Care Teams Rubber Goods Inspector Relationship Specialty Start Date End Date Beau Clement MD [address] [place] [address] PCP - Essence Attributed PCP 03/08/17 Beau Clement MD [address] [place], [place] [id number] PCP - General Family Medicine 07/13/18 documented as of this encounter
--- OUTSIDE RECORDS SUMMARY | 2024-03-18 22:41 | XMS_ITS | Encounter Summary ---
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 Gender Identity Female 08/22/2019 6:09 AM CDT Sexual Orientation Straight 08/22/2019 6: 09 AM CDT documented as of this encounter Ordered Prescriptions Prescription Sig Dispense Quantity Refills Last Filled Start Date End Date gabapentin (NEURONTIN) 100 mg capsule Take 1 capsule (100 mg total) by mouth 2 (two) times a day 60 capsule 5 04/22/2022 3 documented in this encounter Progress Notes * Beau Clement MD - 04/22/2022 4:16 PM CST Gabapentin prescriptions RINARY LABORATORY DIAGNOSTICIAN documented in this encounter Plan of Treatment Not on file documented as of this encounter Visit Diagnoses Not on filedocumented in this encounter Care Teams Public Employment Mediator Relationship Specialty Start Date End Date Beau Clement MD [address] [place] [address] PCP - Essence Attributed PCP 03/08/17 Beau Clmeent MD [address] [place] [address] PCP - General Family Medicine 07/13/18 documented as of this encounter
--- OUTSIDE RECORDS SUMMARY | 2024-03-18 22:41 | XMS_ITS | Encounter Summary ---
Author Organization [facility] Address [address] [facility] [address] [place] [address] Care Team Providers Care Sole Dyer Name Role Phone Beau Clement MD Unavailable [phone]- [phone] Beau Clement MD Primary Care Provid er Reason for Referral * Consultation (Routine) - Closed Specialty Diagnoses / Procedures Referred By Contac t Referred To Contact Neurology Diagnoses Vascular dementia without behavioral disturbance (HCC) Cerebral microvascular disease Beau Clement MD [address] [address] Phone: tel: fax: Beny Guillaume MD PhD [address] [facility] [address] [place] [address] Phone: tel: fax: Referral ID Status Reason Start Date Expiration Date V isits Requested Visits Authorized [id number] Closed Specialty Services Required 01/14/2022 01/15/2023 6 6 Question Answer Please select the performing region: [facility] [[id number]] Please select the performing department: [facility] NE[facility]O [address] [[id number]] # of visits: 6 Encounter Details Date Type Department Care Team (Late st Contact Info) Description 12/10/2021 Orders Only [facility] Family Medicine [address] [address] Beau Clement MD [address] [place] [address] Vascular dementia without behavioral disturbance (HCC) (Primary Dx); Cerebral microvascular disease Social History Tobacco Use Types Packs/Day Years [...] on file 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 Gender Identity Female 08/22/2019 6:09 AM CDT Sexual Orientation Straight 08/22/2019 6: 09 AM CDT documented as of this encounter Progress Notes * Beau Clement MD - 12/10/2021 4:34 PM CDT Neurology consult placed documented in this encounter Plan of Treatment Scheduled Referrals Name Type Priority Associated Diagnoses Orde r Schedule Ambulatory referral to Neurology Outpatient Referral Routine Vascular dementia without behavioral disturbance (CMS/HCC) (HCC) Cerebral microvascular disease Expected: 12/24/2021 (Approximate), Expires: 12/10/2022 documented as of this encounter Visit Diagnoses Diagnosis Vascular dementia without behavioral disturbance (HCC)- Primary Cerebral microvascular disease Unspecified cerebrovascular disease documented in this encounter Care Teams Sole Dyer Relationship Specialty Start Date End Date Beau Clement MD [address] [place] [address] PCP - Essence Attributed PCP 03/08/17 Beau Clement MD [address] [place] [address] PCP - General Family Medicine 07/13/18 documented as of this encounter
--- OUTSIDE RECORDS SUMMARY | 2024-03-18 22:41 | XMS_ITS | Encounter Summary ---
Author Organization [facility] Address [address] [facility] [address] [place] [address] Care Team Providers Care Uniformer Name Role Phone Beau Clement MD Unavailable + [phone] Beau Clement MD Primary Care Provid er Encounter Details Date Type Department Care Team (Late st Contact Info) Description 02/10/[address] 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 Gender Identity Female 08/22/2019 6:09 AM CDT Sexual Orientation Straight 08/22/2019 6: 09 AM CDT documented as of this encounter Progress Notes * Beau Clement MD - 02/10/2022 3:16 PM CST Pain Management consult placed CTURAL STEEL ERECTOR documented in this encounter Plan of Treatment Not on file documented as of this encounter Visit Diagnoses Diagnosis Chronic left SI joint pain- Primary Disorders of sacrum 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
--- OUTSIDE RECORDS SUMMARY | 2024-03-18 22:41 | XMS_ITS | Encounter Summary ---
Author Organization [facility] Address [address] [facility] [address] [place] [address] Care Team Providers Care Company Truck Driver Name Role Phone Beau Clement MD Unavailable +- [phone] Beau Clement MD Primary Care Provid er Reason for Visit * Reason Onset Date Comments Medication Request 02/10/2022 Encounter Details Date Type Department Care Team (Late st Contact Info) Description 02/10/2022 Telephone [facility] Family Medicine [address] [address] Beau Clement MD [address] [address] Medication Request Social History Tobacco Use Types Packs/Day [...] on file 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 Thank you. TERY COUNSELOR * Telephone Encounter - Beau Clement MD - 02/10/2022 3:45 PM CEMETERY COUNSELOR Rx sent. 1 tab 2-3 times daily as needed. May be sedating. Will probably constipate a little TERY COUNSELOR * Telephone Encounter - Tami Aguilar - 02/10/2022 12:48 PM CST Medication Question/Clarification Medication Name(s): HYDROcodone-acetaminophen (NORCO) 5-325 mg per tablet 1 tablet What is the question or clarification needed? Pt only has OTC medication for her pain. Pt's is requesting pain medication If needed, Pharmacy(s) medication(s) should be sent to: [facility] Pharmacy Caller???s Callback #: [phone] Additional Comments: Please notify pt by phone to confirm once sent to pharmacy. Does message need to be routed? Yes-Action Needed TERY COUNSELOR documented in this encounter Plan of Treatment Not on file documented as of this encounter Visit Diagnoses Not on filedocumented in this encounter Care Teams Company Truck Driver Relationship Specialty Start Date End Date Beau Clement MD [address] [place] [address] PCP - Essence Attributed PCP 03/08/17 Beau Clement MD [address] [place] [address] PCP - General Family Medicine 07/13/18 documented as of this encounter
--- OUTSIDE RECORDS SUMMARY | 2024-03-18 22:41 | XMS_ITS | Encounter Summary ---
Author Organization [facility] Address [address] [place] [address] Phone Care Team Providers Care Law Firm Receptionist Name Role Phone Beau Clement MD Unavailable [phone]- [phone] Beau Clement MD Primary Care Provid er Reason for Referral * Procedure (Routine) - Closed Specialty Diagnoses / Procedures Referred By Dede cat Referred To Contact Diagnoses Bilateral posterior capsular opacification Procedures Yag Capsulotomy - OS - Left Eye Shelbi Adams MD [address] DEPT OPHTHALMOLOGY, [address] [address] Phone: tel: fax: [facility] (All Locations) Referral ID Status Reason Start Date Expiration Date Visits Re quested Visits Authorized [id number] Closed 06/22/2022 07/22/2023 1 1 * Diagnostic Imaging (Routine) - Closed Specialty Diagnoses / Procedures Referred By Dede cat Referred To Contact Diagnoses Retinal drusen of both eyes Procedures OCT, Retina - OU - Both Eyes Shelbi Adams MD [address] DEPT OPHTHALMOLOGY, [address] [address] Phone: tel: fax: [facility] (All Locations) Referral ID Status Reason Start Date Expiration Date Visits Re quested Visits Authorized [id number] Closed 06/22/2022 07/22/2023 1 1 Encounter Details Date Type Department Care Team (Late st Contact Info) Description 06/22/2022 Orders Only [facility] Ophthalmology [address] 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 Gender Identity Female 08/22/2019 6:09 AM CDT Sexual Orientation Straight 08/22/2019 6: 09 AM CDT documented as of this encounter Plan of Treatment Not on file documented as of this encounter Results * Yag Capsulotomy - [...] MD OPHTH CLINIC PROCEDURES Final R esult * OCT, Retina - OU - Both [...] documented in this encounter Visit Diagnoses Diagnosis Bilateral posterior capsular opacification- Primary Unspecified after-cataract Retinal drusen of both eyes PCO (posterior capsular opacification), bilateral- Primary Unspecified after-cataract Bilateral posterior capsular opacification Unspecified after-cataract Pseudophakia of both eyes Lens replaced by other means 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
--- OUTSIDE RECORDS SUMMARY | 2024-03-18 22:41 | XMS_ITS | Encounter Summary ---
Author Organization [facility] Address [address] [facility] [address] [place] [address] Care Team Providers Care Manufacturers Service Representative Name Role Phone Beau Clement MD Unavailable + [phone] Beau Clement MD Primary Care Provid er Reason for Visit * Reason Comments Suture / Staple Removal Pt here for stit ch removal left eyebrow, pt states she was seen at [facility] for syncope 05/27/22 and sutures were placed. Pt is currently wearing a heart monitor to evaluate any heart rhythm abnormalities. 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 Gender Identity Female 08/22/2019 6:09 AM CDT Sexual Orientation Straight 08/22/2019 6: 09 AM CDT documented as of this encounter Last Filed Vital Signs Vital Sign Reading Time Taken Comments Blood Pressure 104/80 06/08/2022 1:47 PM CDT Pulse 58 06/08/2022 1:47 PM CDT Temperature 36.4 ??C (97.5 ??F) 06/08/2022 1:47 PM CD T Respiratory Rate 16 06/08/2022 1:47 PM CDT Oxygen Saturation 99% 06/08/2022 1:47 PM CDT Inhaled Oxygen Concentration - - Weight 46.2 kg (101 lb 14.4 oz) 06/08/2022 1:47 PM CDT Height 165.1 cm (5' 5 ) 06/08/2022 1:47 PM CDT Body Mass Index 16.96 06/08/2022 1:47 PM CDT documented in this encounter Ordered Prescriptions Prescription Sig Dispense Quantity Refills Last Filled Start Date End Date predniSONE (DELTASONE) 5 mg tablet Take 1 tablet (5 mg) by mouth daily for 7 days 7 tablet 06/08/2022 06/15/2022 documented in this encounter Progress Notes * Beau Clement MD - 06/08/2022 2:00 PM CDT Subjective/Objective Patient ID: Dottie Bryant is a 76 y.o. female. Chief Complaint Chief Complaint Patient presents with Suture / Staple Removal Pt here for stitch removal left eyebrow, pt states she was seen at [facility] for syncope 05/27/22 and sutures were placed. Pt is currently wearing a heart monitor to evaluate any heart rhythm abnormalities. HPI The patient had a syncopal episode and fell on 06/02/22, striking her face around her left eye, resulting in a black eye a laceration over the eyebrow. She was seen in the [facility] ER, and the laceration was repaired. No clear cause of her syncope was determined. Of note, that was her thirdepisode in his many days. There is concerned was cardiac in origin, so she saw Cardiology, and is now on an event monitor. There been no new episodes since the ER visit. She complains fullness in ears, particularly her left ear. She denies any ear pain or congestion. She denies any fever or chills. The ER notes, reports, and studies were reviewed. The patient's past medical history, surgical [...] Positive for wound. Negative for rash. Neurological: Positive for syncope. Negative for dizziness, weakness, light- headedness and headaches. Psychiatric/Behavioral: Negative for decreased concentration and sleep disturbance. The patient is not nervous/anxious. Physical Exam Vitals and nursing note reviewed. Constitutional: General: She is not in acute distress. Appearance: Normal appearance. She is well-developed. She is not ill-appearing or toxic-appearing. HENT: Head: Normocephalic and atraumatic. Jaw: There is normal jaw occlusion. Right Ear: Hearing, ear canal and external ear normal. Tympanic membrane is not erythematous, retracted or bulging. Tympanic membrane has decreased mobility. Left Ear: Hearing, ear canal and external ear normal. Tympanic membrane is not erythematous, retracted or bulging. Tympanic membrane has decreased mobility. Nose: Nose normal. No rhinorrhea. Right Sinus: No maxillary sinus tenderness or frontal sinus tenderness. Left Sinus: No maxillary sinus tenderness or frontal sinus tenderness. Mouth/Throat: Lips: Pastura. Mouth: Mucous membranes are moist. Tongue: No lesions. Pharynx: Oropharynx is clear. Uvula midline. No pharyngeal swelling or posterior oropharyngeal erythema. Eyes: General: Lids are normal. Vision grossly intact. Gaze aligned appropriately. Right eye: No discharge. Left eye: No discharge. Extraocular Movements: Extraocular movements intact. Conjunctiva/sclera: Conjunctivae [...] takes less than 2 seconds. Findings: Laceration (1 well-healed laceration over the right eyebrow) present. No rash. 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 Facial laceration/suture removal: Laceration is healing well, there is no sign of infection or dehiscence. Sutures removed without difficulty. Wound care instructions were given. 2. Syncope: Unclear etiology. Continue care per Cardiology including event monitor. 3. Hypertension: Continue low-sodium diet. Encouraged exercise, as long as it is safe. Continue metoprolol XL. 4. Hyperlipidemia: Controlled on atorvastatin. Continue healthy diet. Exercise, as tolerated and safe. 5. Alzheimer's: Continue Aricept. Continue to monitor. 6. Eustachian tube dysfunction: Discussed the diagnosis, treatment with the patient and her . Trial low-dose prednisone x1 week. documented in this encounter Plan of Treatment Not on file documented as of this encounter Visit Diagnoses Diagnosis Facial laceration, initial encounter- Primary Visit for suture removal Syncope, unspecified syncope type Essential (primary) hypertension Unspecified essential hypertension Dyslipidemia Other and unspecified hyperlipidemia Late onset Alzheimer's dementia without behavioral disturbance (HCC) Dysfunction of both eustachian tubes documented in this encounter Care Teams Manufacturers Service Representative Relationship Specialty Start Date End Date Beau Clement MD [address] [place] [address] PCP - Essence Attributed PCP 03/08/17 Beau Clement MD [address] [place] [address] PCP - General Family Medicine 07/13/18 documented as of this encounter
--- OUTSIDE RECORDS SUMMARY | 2024-03-18 22:41 | XMS_ITS | Encounter Summary ---
Author Organization [facility] Address [address] [place] [address] Care Team Providers Care Resaw Machine Operator Name Role Phone Beau Clement MD Unavailable [phone]- [phone] Beau Clement MD Primary Care Provid er Reason for Visit * Consultation (Routine) - Closed Specialty Diagnoses / Procedures Referred By Contac t Referred To Contact Neurology Diagnoses Vascular dementia without behavioral disturbance (HCC) Cerebral microvascular disease Beau Clement MD [address] [place] [address] Phone: tel: fax: Beny Guillaume MD PhD [address] [facility] [address] [address] Phone: tel: fax: Referral ID Status Reason Start Date Expiration Date V isits Requested Visits Authorized [id number] Closed Specialty Services Required 01/14/2022 01/15/2023 6 6 Encounter Details Date Type Department Care Team (Latest Contact Info) Description 01/14/2022 11:30 AM WRITING MANAGER Office Visit [facility] [address] [place] [id number] Beny Guillaume MD PhD [address] [facility] [address] [address] Late onset Alzheimer's dementia without behavioral disturbance, psychotic disturbance, mood disturbance, or anxiety, unspecified dementia severity (HCC) (Primary Dx); Vascular dementia without behavioral disturbance (HCC); Cerebral microvascular disease Social History Tobacco Use [...] on file Legal Sex Female 8:34 AM WRITING MANAGER Gender Identity Female 08/22/2019 6:09 AM CDT Sexual Orientation Straight 08/22/2019 6: 09 AM CDT documented as of this encounter Last Filed Vital Signs Vital Sign Reading Time Taken Comments Blood Pressure 112/80 01/14/2022 11:22 AM WRITING MANAGER Pulse 68 01/14/2022 11:22 AM WRITING MANAGER Temperature 36.8 ??C (98.2 ??F) 01/14/2022 11:[address] Respiratory Rate - - Oxygen Saturation 98% 01/14/2022 11:22 AM WRITING MANAGER Inhaled Oxygen Concentration - - Weight 45.5 kg (100 lb 6.4 oz) 01/14/2022 11:22 AM WRITING MANAGER Height 165.1 cm (5' 5 ) 01/14/2022 11:22 AM WRITING MANAGER Body Mass Index 16.71 01/14/2022 11:22 AM WRITING MANAGER documented in this encounter Ordered Prescriptions Prescription Sig Dispense Quantity Refills Last Filled Start Date End Date donepeziL (ARICEPT) 10 mg tablet Take 1 tablet (10 mg total) by mouth nightly 30 tablet 11 01/14/2022 donepeziL (ARICEPT) 5 mg tablet Take 1 tablet (5 mg total) by mouth nightly 30 tablet 01/14/2022 2 documented in this encounter Progress Notes * Beny Guillaume MD PhD - 01/14/2022 11:30 AM CST NEW PATIENT CONSULT Patient ID: Dottie Bryant is a 76 y.o. female. This is a consult requested by Beau Park* Reason for the consultation: Dementia Chief Complaint Memory loss HPI: This is a 76-year-old woman referred for neurologic consultation due to progressive memory problems. She is accompanied by her who provides the bulk of the history. Her has noticed that she is become increasingly repetitive over the last 1-1/2 years. For example he will tell her theday of the week and the month each day but she will repeatedly asked him what day of the week it is. She forgets recent conversations. She is for gotten that she is gone out to dinner with both of her sons for their birthdays over the last week or two. Her has had to take over cooking and taking care of the house. She stopped driving on her own three years ago apparently just because she was not feeling confident. She was also having visual problems due to her cataracts. She has troubleusing the remote control and can no longer use her cell phone. She is not fallen for any scams. There has been no paranoia and no hallucinations. She is no history of dream related behavior. Olfaction remains intact. There is no family history of dementia. There has been no change in her gait or balance. She is become resistant to bathing. She had an MRI of the brain carried out which showed diffuse cerebral atrophy and compensatory ventricular enlargement. There is no history of excessive alcohol use. PMH: Past Medical History: Diagnosis Date Dyslipidemia Hypertension Osteopenia TIA (transient ischemic attack) memory loss started 3 months ago July 2021. Unsure of TIA occurance Vitamin D deficiency Past Surgical History: Procedure Laterality Date CARDIAC ELECTROPHYSIOLOGY MAPPING AND ABLATION 2019 CATARACT EXTRACTION 2018 SECTION 01/1975 EYE SURGERY 2018 SKIN CANCER EXCISION 2015 nose VEIN SURGERY 12/1997 MEDICATIONS: Current Outpatient Medications: aspirin 81 mg enteric coated tablet, Take 81 mg by mouth every morning, Disp: , Rfl: atorvastatin (LIPITOR) 40 mg tablet, Take 1 tablet (40 mg total) by mouth daily (Patient taking differently: Take 40 mg by mouth daily before breakfast), Disp: 90 tablet, Rfl: 3 calcium carbonate/vitamin D3 (CALCIUM 500 + D ORAL), Take 1 tablet by mouth every morning, Disp: , Rfl: ibandronate (BONIVA) 150 mg tablet, TAKE 1 TABLET (150 MG TOTAL) BY MOUTH EVERY 30 (THIRTY) DAYS TAKE IN AM WITH GLASS OF WATER PRIOR TO FOOD, DON'T LIE DOWN FOR 30 MINUTES. (Patient taking differently: Take 150 mg by mouth every 30 (thirty) days Take in AM with glass of water prior to food, don't lie down for 30 minutes. On the 15 of the month), Disp: 3 tablet, Rfl: 3 metoprolol XL (TOPROL-XL) 25 mg extended release tablet, TAKE 1 TABLET BY MOUTH EVERY DAY, Disp: 90tablet, Rfl: 2 donepeziL (ARICEPT) 10 mg tablet, Take 1 tablet (10 mg total) by mouth nightly, Disp: 30 tablet, Rfl: 11 donepeziL (ARICEPT) 5 mg tablet, Take 1 tablet (5 mg total) by mouth nightly, Disp: 30 tablet, Rfl:0 SOCIALHX: The patient is and has two children. 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 reports that she has never smoked. She has never used smokeless tobacco. She reports that she does not use drugs. Patient reports consuming alcoholic drinks monthly or less, with a daily consumption of drinks. Patient also reports less than monthly occurrences of consuming 6 or more alcoholic drinks at one occasion. FHX: Family History Problem Relation Age of Onset Heart attack Mother Heart attack Father Diabetes Son Anesthesia problems Neg Hx ROS: Review of Systems Constitutional: Positive for unexpected weight change. Negative for fatigue. HENT: Negative for ear pain, tinnitus and trouble swallowing. Eyes: Negative for pain. Respiratory: Negative for shortness of breath and wheezing. Cardiovascular: Negative for chest pain and palpitations. Gastrointestinal: Negative for abdominal pain, constipation and nausea. Genitourinary: Negative for dysuria and frequency. Musculoskeletal: Negative for arthralgias and back pain. Skin: Negative for rash. Neurological: Per HPI Hematological: Does not bruise/bleed easily. BP 112/80 (BP Location: Left arm, Patient Position: Sitting) Pulse 68 Temp 36.8 ??C (98.2 ??F) Ht 165.1 cm (5' 5 ) Wt 45.5 kg (100 lb 6.4 oz) SpO2 98% BMI 16.71 kg/m?? GENERAL EXAMINATION: Well-appearing. NEUROLOGIC EXAMINATION: MENTAL STATUS: Oriented to person, place and time. Attention, concentration and fund of knowledge normal. She scored 8 on a Sutherlin cognitive assessment. She scored 22 on the Short blessed test. AFFECT: Normal. LANGUAGE: Fluent. No dysarthria CRANIAL NERVES: II: Pupils equal round reactive to light. Discs sharp. Visual savage: full to finger confrontation. III, IV, & : Extraocular movements full without nystagmus. V: Facial sensation intact to soft touch and pinprick. VII: Facial muscles symmetric. VIII: Hearing grossly intact. IX & X: Palate rises symmetrically. XI: Normal shoulder shrug. XII: Tongue protrudes to the midline. MOTOR: No drift. Fine finger movements performed symmetrically. Normal bulk, tone and strength throughout. No involuntary movements seen. SENSORY: Light touch and pinprick intact. Vibratory sensation intact. COORDINATION: Egaeme-jxzq-agpzmx testing performed without dysmetria. Rapid alternating movements of the hands performed symmetrically. DEEP TENDON REFLEXES: 2+ at the brachioradialis, biceps, triceps and knees. Absent at the ankles. PLANTAR RESPONSES: JANG'S: GAIT: Normal stride, arm swing and turns. Able to stand on toes and heels. Romberg negative. Tandemis intact. VASCULAR: No carotid bruits. HEART: Regular rate and rhythm. EXTREMITIES: SPINE: LABORATORY & DIAGNOSTIC STUDIES REVIEWED: I reviewed her MRI of the brain. 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 I do not think she has NPH or a vascular dementia. We will check a vitamin B12 level and TSH to complete her workup. I have recommended initiation of treatment with donepezil 5 milligrams daily for one month then increasing to 10 milligrams daily. Common adverse side effects and reasonable expectations were discussed with the patient and her . I encouraged her to increase her physical activity level. We will plan a follow-up in one year. Diagnoses and all orders for this visit: Late onset Alzheimer's dementia without behavioral disturbance, psychotic disturbance, mood disturbance, or anxiety, unspecified dementia severity (HCC) (Primary) - Vitamin B12; Future - TSH; Future Vascular dementia without behavioral disturbance (HCC) - Ambulatory referral to Neurology Cerebral microvascular disease - Ambulatory referral to Neurology Other orders - donepeziL (ARICEPT) 5 mg tablet; Take 1 tablet (5 mg total) by mouth nightly - donepeziL (ARICEPT) 10 mg tablet; Take 1 tablet (10 mg total) by mouth nightly Dictation completed by [employer] Direct software. Artist Representative variances may occur. Beny Guillaume M.D., Ph.D. ING MANAGER documented in this encounter Plan of Treatment Not on file documented as of this encounter Results * TSH (01/14/2022 2:04 PM WRITING MANAGER) Thyroid Stimulating Hormone 1.22 0.30 - 4.20 mcIUnit/mL [facility] Blood 01/14/2022 2:04 PM WRITING MANAGER 01/14/2022 2:04 PM WRITING MANAGER us Beny Guillaume MD PhD LAB BLOOD ORDERABLES Fi nal Result Performing Organization Address City/[facility] Co de Phone Number [facility] [address] [employer] [place], [place] [id number] * Vitamin B12 (01/14/2022 2:04 PM WRITING MANAGER) Vitamin B12 597 230 - 1,250 pg/mL [facility] Blood 01/14/2022 2:04 PM WRITING MANAGER 01/14/2022 2:04 PM WRITING MANAGER Beny Guillaume MD PhD LAB BLOOD ORDERABLES Fi nal Result Performing Organization Address City/[facility]/ZIP Co de Phone Number [facility] [address] [employer] [place] [address] documented in this encounter Visit Diagnoses Diagnosis Late onset Alzheimer's dementia without behavioral disturbance, psychotic disturbance, mood disturbance, or anxiety, unspecified dementia severity (HCC)- Primary Vascular dementia without behavioral disturbance (HCC) Cerebral microvascular disease Unspecified cerebrovascular disease documented in this encounter Discontinued Medications Medication Sig Discontinue Reason Start Date End Da te ofloxacin (OCUFLOX) 0.3 % ophthalmic solution Administer 1 drop into the left eye 4 (four) times a day Start after 12-02-21 surgery Therapy completed 12/01/2021 01/14/2022 prednisoLONE acetate (PRED FORTE) 1 % ophthalmic suspension Administer 1 drop into the left eye 4 (four) times a day Start after 12-02-21 surgery Therapy completed 12/01/2021 01/14/2022 documented as of this encounter Orders Outpatient Referral Count Last Ordered Date Fir st Ordered Date AMB REFERRAL TO NEUROLOGY 1 01/14/2022 documented in this encounter Care Teams Resaw Machine Operator Relationship Specialty Start Date End Date Beau Clement MD [address] [place] [address] PCP - Essence Attributed PCP 03/08/17 Beau Clement MD [address] [place] [address] PCP - General Family Medicine 07/13/18 documented as of this encounter
--- OUTSIDE RECORDS SUMMARY | 2024-03-18 22:41 | XMS_ITS | Encounter Summary ---
Author Organization [facility] Address [address] [place] [address] Care Team Providers Care Electrotyper Apprentice Name Role Phone Beau Clement MD Unavailable +- [phone] Beau Clement MD Primary Care Provid er Encounter Details Date Type Department Care Team (Late st Contact Info) Description 02/10/2022 Orders Only [facility] Family Medicine [address] [address] Beau Clement MD [address] [address] Social History Tobacco Use Types [...] on file Legal Sex Female 8:34 AM PATIENT SERVICE SPECIALIST Gender Identity Female 08/22/2019 6:09 AM CDT Sexual Orientation Straight 08/22/2019 6: 09 AM CDT documented as of this encounter Progress Notes * Beau Clement MD - 02/10/2022 3:43 PM CST Pain medication rx sent ENT SERVICE SPECIALIST documented in this encounter Plan of Treatment Not on file documented as of this encounter Visit Diagnoses Not on filedocumented in this encounter Care Teams Electrotyper Apprentice Relationship Specialty Start Date End Date Beau Clement MD [address] [place] [address] PCP - Essence Attributed PCP 03/08/17 Beau Clement MD [address] [place] [address] PCP - General Family Medicine 07/13/18 documented as of this encounter
--- OUTSIDE RECORDS SUMMARY | 2024-03-18 22:41 | XMS_ITS | Encounter Summary ---
Author Organization [facility] Address [address] [facility] [address] [place] [address] Care Team Providers Care Supervisor Dairy Sanitation Name Role Phone Beau Clement MD Unavailable +- [phone] Beau Clement MD Primary Care Provid er Encounter Details Date Type Department Care Team (Late st Contact Info) Description 02/10/2022 Orders Only [facility] Family Medicine [address] [address] Beau Clement MD [address] [address] Social History Tobacco Use Types [...] on file Legal Sex Female 8:34 AM FURNACE LOADER Gender Identity Female 08/22/2019 6:09 AM CDT Sexual Orientation Straight 08/22/2019 6: 09 AM CDT documented as of this encounter Ordered Prescriptions Prescription Sig Dispense Quantity Refills Last Filled Start Date End Date HYDROcodone-acetam inophen (NORCO) 5-325 mg per tabletIndications: Pain Take 1 tablet by mouth every 8 (eight) hours as needed for pain 42 tablet 02/10/2022 11/30/2022 documented in this encounter Plan of Treatment Not on file documented as of this encounter Visit Diagnoses Not on filedocumented in this encounter Care Teams Supervisor Dairy Sanitation Relationship Specialty Start Date End Date Beau Clement MD [address] [place] [address] PCP - Essence Attributed PCP 03/08/17 Beau Clement MD [address] [place] [address] PCP - General Family Medicine 07/13/18 documented as of this encounter
--- OUTSIDE RECORDS SUMMARY | 2024-03-18 22:41 | XMS_ITS | Encounter Summary ---
Author Organization [facility] Address [address] [place] [address] Phone Care Team Providers Care Superintendent Nonselling Name Role Phone Beau Clement MD Unavailable [phone]- [phone] Beau Clement MD Primary Care Provid er Encounter Details Date Type Department Care Team (Late st Contact Info) Description 12/10/2021 Telephone [facility] Ophthalmology [address] [place] [address] Roslyn Bagley, OD [address] [place] [address] Social History Tobacco Use Types Packs/Day Years [...] file Legal Sex Female 8:34 AM DIRECTOR OF MATH Gender Identity Female 08/22/2019 6:09 AM CDT Sexual Orientation Straight 08/22/2019 6: 09 AM CDT documented as of this encounter Miscellaneous Notes * Telephone Encounter - [facility] - 12/03/2022 2:56 PM CDT error documented in this encounter Plan of Treatment Not on file documented as of this encounter Visit Diagnoses Not on filedocumented in this encounter Care Teams Superintendent Nonselling Relationship Specialty Start Date End Date Beau Clement MD [address] [place] [address] PCP - Essence Attributed PCP 03/08/17 Beau Clement MD [address] [place] [address] PCP - General Family Medicine 07/13/18 documented as of this encounter
--- OUTSIDE RECORDS SUMMARY | 2024-03-18 22:41 | XMS_ITS | Encounter Summary ---
Author Organization [facility] Address [address] [place] [address] Phone Care Team Providers Care Business Development Manager Name Role Phone Beau Clement MD Unavailable [phone]- [phone] Beau Clement MD Primary Care Provid er Reason for Referral * Diagnostic Imaging (Routine) - Closed Specialty Diagnoses / Procedures Referred By Contemre t Referred To Contact Diagnoses Visual field loss Procedures OCT, Optic Nerve - OU - Both Eyes Dina Nguyen MD Phone: tel: fax: [facility] (All Locations) Referral ID Status Reason Start Date Expiration Date Visits Re quested Visits Authorized [id number] Closed 12/15/2021 01/14/2023 1 1 Encounter Details Date Type Department Care Team (Late st Contact Info) Description 12/09/2021 10:40 AM CDT Office Visit [facility] Ophthalmology [address] [place] [address] [address] [place] [address] Dina Nguyen MD [address] [place] [address] S/P cataract extraction and insertion of intraocular lens, left (Primary Dx); Visual field loss Social History Tobacco Use Types Packs/Day Years [...] on file Legal Sex Female 8:34 AM TUBE TEST TECHNICIAN Gender Identity Female 08/22/2019 6:09 AM CDT Sexual Orientation Straight 08/22/2019 6: 09 AM CDT documented as of this encounter Progress Notes * Dina Nguyen MD - 12/09/2021 10:40 AM CDT Assessment and Plan Problem List Eye/Vision Problems S/P cataract extraction and insertion of intraocular lens, left - Primary Current Assessment & Plan POW #1 s/p CE/PCIOL OS - Doing [...] - RTC 1 month for DFEx, MRx Visual field loss Current Assessment & Plan -grossly full by CVF and with amsler, but patient felt like letters on testing were missing -OCT nerve today without thickening. She has has compact disc OU with in tact GCL -will obtain HVF at f/u documented in this encounter Miscellaneous Notes * Assessment & Plan Note - Dina Nguyen MD - 12/10/2021 8:53 AM CDT Associated Problem(s): S/P cataract extraction and insertion of intraocular lens, left (Resolved 05/21/2022) POW #1 s/p CE/PCIOL OS - Doing [...] at night. - RTC 1 month for MR Taliax * Assessment & Plan Note - Dina Nguyen MD - 12/10/2021 8:51 AM CDT Associated Problem(s): Visual field loss (Resolved 05/21/2022) -grossly full by CVF and with amsler, but patient felt like letters on testing were missing -OCT nerve today without thickening. She has has compact disc OU with in tact GCL -will obtain HVF at f/u * Addendum Note - Dina Nguyen MD - 12/09/2021 10:40 AM CDTAddended by: DINA NGUYEN on: 12/15/2021 09:56 AM Modules accepted: Orders documented in this encounter Plan of Treatment Not on file documented as of this encounter Procedures Procedure Name Priority Date/Time Associated Diagnosis Comments OCT, OPTIC NERVE - OU - BOTH EYES Routine 12/09/2021 10:40 AM CDT Visual field loss documented in this encounter Results * OCT, Optic Nerve - OU - Both Eyes (12/09/2021 10:40 AM CDT) Anatomical Region Laterality Modality Head Optical Coherenc e Tomography Narrative 12/15/2021 9:56 AM CDT OD RNFL 74 OS 80 Inferior thinning OD>OS OCT macula with drusen OU, mild irregular IS/OS us Dina Ngyuen MD OPHTH TOMOGRAPHY Blanca l Result documented in this encounter Visit Diagnoses Diagnosis S/P cataract extraction and insertion of intraocular lens, left- Primary Visual field loss documented in this encounter Eye Exam Visual Acuity (Snellen - Linear) Right eye Left eye Dist sc 20/40 Dist ph sc 20/30 -2 Tonometry (Tonopen, 10:33 AM) Right eye Left eye Pressure 19 Eye is very red Visual Torres Right eye Left eye Full Full Extraocular Movement Right eye Left eye Up gaze 0 0 0 0 0 0 Right/left gaze 0 -- 0 0 -- 0 Down gaze 0 0 0 0 0 0 Neuro/Psych Oriented x3: Yes Mood/Affect: Normal External Exam Right eye Left eye External Normal Normal Slit Lamp Exam Right eye Left eye Lids/Lashes Normal Normal Conjunctiva/Sclera White and quiet EVELINA near limb us Cornea Clear trace DF, wounds mckay negative Anterior Chamber Deep and quiet Deep, 1+ mixed cell Iris Round and reactive Round and deuce ctive Lens PCIOL PCIOL in good po sition Vitreous Normal Fundus Exam Right eye Left eye Disc flat, mild blurred m argins but no elevation flat, mild blurred margins but no elevation C/D Ratio .1 .1 Macula central drusen central drusen Vessels Normal Normal Periphery Normal Normal Care Teams Business Development Manager Relationship Specialty Start Date End Date Beau Clement MD [address] [place] [address] PCP - Essence Attributed PCP 03/08/17 Beau Clement MD [address] [place] [address] PCP - General Family Medicine 07/13/18 documented as of this encounter
--- OUTSIDE RECORDS SUMMARY | 2024-03-18 22:42 | XMS_ITS | Encounter Summary ---
Author Organization [facility] Address [address] [facility] [address] [place] [address] Care Team Providers Care Repairer Typewriter Name Role Phone Beau Clement MD Unavailable + [phone] Beau Clement MD Primary Care Provid er Reason for Referral * MRI/CAT/PET Scan (Routine) - Closed Specialty Diagnoses / Procedures Referred By Contac t Referred To Contact Radiology Diagnoses Memory impairment Late onset Alzheimer's dementia without behavioral disturbance (HCC) Short-term memory loss Procedures MRI Brain WO Contrast Beau Clement MD [address] [place] [address] Phone: tel: fax: [address] [address] Referral ID Status Reason Start Date Expiration Date Visits Re quested Visits Authorized [id number] Closed 09/25/2021 12/24/2021 1 1 Encounter Details Date Type Department Care Team (Late Contact Info) Description 08/26/2021 Orders Only [facility] Family Medicine [address] [address] Beau Clement MD [address] [place] [address] Memory impairment (Primary Dx); Late onset Alzheimer's dementia without behavioral disturbance (HCC); Short-term memory loss Social History Tobacco Use Types Packs/Day Years Used Date Smoking Tobacco: Never Smokeless Tobacco: Never Alcohol Use Standard Drinks/Week Comments Not Currently 0 (1 standard drink = 0.6 oz pur e alcohol) AUDIT-C Answer Date Recorded Q1: How often do you have a drink containing alc ohol? 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 MRI BRAIN WO CONTRAST REASON FOR STUDY: ?? Memory Loss, alzheimers ?? noticed short term memory loss x 2 years; has worsened with in the past 3 months ?? TECHNIQUE: Multiplanar imaging includes non-contrasted T1, T2, FLAIR, and diffusion with ADC map sequences. Additional sequence(s) sensitive to blood products. Images stored on PACS. ? COMPARISON: ?? None available. FINDINGS: No diffusion restriction to suggest acute/recent infarction. There is no parenchymal susceptibility signal to indicate blood degradation products. Prominence of the ventricular system likely reflects sequelae of central parenchymal volume loss but previous imaging studies are not available. ?? Please note a component of normal pressure hydrocephalus cannot be completely excluded imaging. ??The basilar cisterns are maintained. ??There is a 6 mm pineal T2 hyperintense cyst. ??No significant mass effect on the tectal plate. Chronic lacunar infarction in the bilateral basal ganglia. ??A larger T2 hyperintense focus in the inferior right basal ganglia with central low and peripheral high FLAIR hyperintense signal could reflect a chronic infarction or large perivascular space. ??Elsewhere in the brain the subcortical and periventricular white matter T2/FLAIR hyperintense signal is nonspecific compatible with mild chronic microvascular ischemic type change in a patient of this age. ??Similar signal alteration is seen in the paula. Previous right eye cataract surgery. ??Mucosal thickening in the inferior left frontal sinus, bilateral ethmoid air cells, maxillary and sphenoid sinuses. ?? Mastoid air cells are predominantly clear. ??Degenerative changes in the imaged upper cervical spine. IMPRESSION: ?? 1. ?? No acute/recent infarction. 2. ?? Chronic lacunar infarctions, chronic microvascular ischemic type white-matter changes and additional findings as described. 3. ?? Previous imaging studies are not available for comparison. THIS IS AN ELECTRONICALLY VERIFIED FINAL REPORT 10/15/2021 1:16 PM - Electronically signed by ??Robert SHARMA D: ??10/15/2021 1:16 PM T: Report ID: [id number] Reading Location: ??[id number] Procedure Note Robert Naik, DO - 10/15/2021 EXAM DESCRIPTION: MRI BRAIN WO CONTRAST REASON FOR STUDY: Memory Loss, alzheimers noticed short term memory loss x 2 years; has worsened with in the past 3 months TECHNIQUE: Multiplanar imaging includes non-contrasted T1, T2, FLAIR, and diffusion with ADC map sequences. Additional sequence(s) sensitive toblood products. Images stored on PACS. COMPARISON: None available. FINDINGS: No diffusion restriction to suggest acute/recent infarction. There is no parenchymal susceptibility signal to indicate blooddegradation products. Prominence of the ventricular system likely reflects sequelae of central parenchymal volume loss but previous imaging studies are not available. Please note a component of normal pressure hydrocephalus cannot becompletely excluded imaging. The basilar cisterns are maintained. There is a 6 mm pineal T2 hyperintense cyst. No significant mass effect on the tectalplate. Chronic lacunar infarction in the bilateral basal ganglia. A larger T2 hyperintense focus in the inferior right basal ganglia with central lowand peripheral high FLAIR hyperintense signal could reflect a chronicinfarction or large perivascular space. Elsewhere in the brain the subcortical and periventricular white matter T2/FLAIR hyperintense signal is nonspecific compatible with mild chronic microvascular ischemic type change in apatient of this age. Similar signal alteration is seen in the paula. Previous right eye cataract surgery. Mucosal thickening in the inferiorleft frontal sinus, bilateral ethmoid air cells, maxillary and sphenoidsinuses. Mastoid air cells are predominantly clear. Degenerative changes in theimaged upper cervical spine. IMPRESSION: 1. No acute/recent infarction. 2. Chronic lacunar infarctions, chronic microvascular ischemic type white-matter changes and additional findings as described. 3. Previous imaging studies are not available for comparison. THIS IS AN ELECTRONICALLY VERIFIED FINAL REPORT 10/15/2021 1:16 PM - Electronically signed by Robert SHARMA T: Report ID: [id number] Reading Location: [id number] Beau Clement MD IMG MRI PROCEDURES F inal Result documented in this encounter Visit Diagnoses Diagnosis Memory impairment- Primary Memory loss Late onset Alzheimer's dementia without behavioral disturbance (HCC) Short-term memory loss Memory loss Memory impairment Memory loss Late onset Alzheimer's dementia without behavioral disturbance (HCC) Short-term memory loss Memory loss documented in this encounter Care Teams Repairer Typewriter Relationship Specialty Start Date End Date Beau Clement MD [address] [place] [address] PCP - Essence Attributed PCP 03/08/17 Beau Clement MD [address] [place] [address] PCP - General Family Medicine 07/13/18 documented as of this encounter
--- OUTSIDE RECORDS SUMMARY | 2024-03-18 22:42 | XMS_ITS | Encounter Summary ---
Author Organization [facility] Address [address] [facility] [address] [place] [address] Care Team Providers Care Manager Banquet Name Role Phone Beau Clement MD Unavailable +- [phone] Beau Clement MD Primary Care Provid er Encounter Details Date Type Department Care Team (Late st Contact Info) Description 11/17/2020 Telephone [facility] Organization [address] [place] [address] Jennifer Russell, RN [address] [facility] [address] [address] Social History Tobacco Use Types Packs/Day Years Used Date Smoking Tobacco: Never Smokeless Tobacco: Never Alcohol Use Standard Drinks/Week Comments Not Currently 0 (1 standard drink = 0.6 oz pur e alcohol) PHQ-2 Answer Date Recorded PHQ-2 Total Score (If total score is 3 or more points, staff should administer the PHQ-9) 0 11/15/2020 Comments No Sex and Gender Information Value Date Recorded Sex Assigned at Not on file 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 Thank you - Jennifer Russell, RN, BSN [facility] Sponge Buffer for High Risk [phone] documented in this encounter Plan of Treatment Not on file documented as of this encounter Visit Diagnoses Not on filedocumented in this encounter Care Teams Manager Banquet Relationship Specialty Start Date End Date Beau Clement MD [address] [place] [address] PCP - Essence Attributed PCP 03/08/17 Beau Clement MD [address] [place] [address] PCP - General Family Medicine 07/13/18 documented as of this encounter
--- OUTSIDE RECORDS SUMMARY | 2024-03-18 22:42 | XMS_ITS | Encounter Summary ---
Author Organization [facility] Address [address] 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 * Telephone Encounter - Wanda May LPN - 11/18/2020 10:06 AM CDT Attempted to reach pt, LMOVM for call back. * Telephone Encounter - Wanda May LPN - 11/12/2020 11:31 AM CDT Attempted to reach pt, LMOVM for call back. * Telephone Encounter - Beau Clement MD - 11/08/2020 4:51 PM CDT The x-ray show some arthritis, a little in the hip and SI joint, but more in the lower back. I think she has got arthritis, plus some overuse from doing the yard work. I have called in a prescription for a little bit of tramadol for pain. * Telephone Encounter - Jennifer Huizar - 11/08/2020 11:51 AM CDT called to get the results of her recent xray. She is needing something for pain sent to [facility] in [place]. Thanks. Edgard [phone] documented in this encounter Plan of Treatment Not on file documented as of this encounter Visit Diagnoses Not on filedocumented in this encounter Care Teams Assembly Line Leader Relationship Specialty Start Date End Date Beau Clement MD [address] [place] [address] PCP - Essence Attributed PCP 03/08/17 Beau Clement MD [address] [place] [address] PCP - General Family Medicine 07/13/18 documented as of this encounter
--- OUTSIDE RECORDS SUMMARY | 2024-03-18 22:42 | XMS_ITS | Encounter Summary ---
Author Organization [facility] Address [address] [facility] [address] [place] [address] Care Team Providers Care Speech Therapy Teacher Name Role Phone Beau Clement MD Unavailable + [phone] Beau Clement MD Primary Care Provid er Encounter Details Date Type Department Care Team (Late st Contact Info) Description 12/09/2020 Orders Only [facility] Family Medicine [address] [address] Beau Clement MD [address] [address] Lumbar foraminal stenosis; Chronic right-sided low back pain with right-sided sciatica; Hip pain, left Social History Tobacco Use Types Packs/Day Years [...] points, staff should administer the PHQ-9) 0 12/13/2020 Comments No Sex and Gender Information Value Date Recorded Sex Assigned at Not on file 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 Gender Identity Female 08/22/2019 6:09 AM CDT Sexual Orientation Straight 08/22/2019 6: 09 AM CDT documented as of this encounter Plan of Treatment Not on file documented as of this encounter Visit Diagnoses Diagnosis Lumbar foraminal stenosis Chronic right-sided low back pain with right-sided sciatica Hip pain, left Pain in joint, pelvic region and thigh documented in this encounter Orders Imaging Orders Without Results Count Last Order ed Date First Ordered Date MRI LUMBAR SPINE WO CONTRAST 1 12/09/2020 documented in this encounter Care Teams Speech Therapy Teacher Relationship Specialty Start Date End Date Beau Clement MD [address] [place] [address] PCP - Essence Attributed PCP 03/08/17 Beau Clement MD [address] [place] [address] PCP - General Family Medicine 07/13/18 documented as of this encounter
--- OUTSIDE RECORDS SUMMARY | 2024-03-18 22:42 | XMS_ITS | Encounter Summary ---
Author Organization [facility] Address [address] [place] [address] Care Team Providers Care Ambulatory Nurse Name Role Phone Beau Clement MD Unavailable +- [phone] Beau Clement MD Primary Care Provid er Reason for Visit * Auth/Cert Specialty Diagnoses / Procedures Referred By Dede cat Referred To Contact Diagnoses Age-related nuclear cataract of left eye Age-related nuclear cataract of left eye [H25.12] Procedures ME REMV CATARACT EXTRACAP,INSERT LENS,COMP ME REMV CATARACT EXTRACAP,INSERT LENS LEFT EXTRACTION CATARACT - PHACOEMULSIFICATION AND LENS IMPLANT Referral ID Status Reason Start Date Expiration Date Visits Re quested Visits Authorized [id number] 1 1 Encounter Details Date Type Department Care Team (Late st Contact Info) Description 12/02/2021 6:35 AM CDT - 12/02/2021 10:03 AM CDT Hospital Encounter [facility] Operating Room [address] [place] [address] Addy Nguyen MD [address] [place] [address] Discharge Disposition: Discharge to home or self [...] on file 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 Gender Identity Female 08/22/2019 6:09 AM CDT Sexual Orientation Straight 08/22/2019 6: 09 AM CDT documented as of this encounter Last Filed Vital Signs Vital Sign Reading Time Taken Comments Blood Pressure 140/65 12/02/2021 9:45 AM CDT Pulse 51 12/02/2021 9:45 AM CDT Temperature 36.4 ??C (97.5 ??F) 12/02/2021 9:15 AM CD T Respiratory Rate 20 12/02/2021 9:45 AM CDT Oxygen Saturation 99% 12/02/2021 9:45 AM CDT Inhaled Oxygen Concentration - - [...] your vision Whom to call with concerns: [phone] - [facility] [place] If after hours, listen to the voicemail for instructions for contacting the Eye Doctor induction coordination power engineer. Thank you for entrusting us with your [...] by mouth daily 90 tablet 3 10/31/2021 3 ibandronate (BONIVA) 150 mg tabletIndication s:Osteopenia of [...] on the above findings, I consider Dottie Patinoppard to be an acceptable risk for : [...] a living will or durable power of ip attorney?: (P) No Would you like information regarding Advanced Directiv (Living Will) and/or Durable Power of Ornament Maker Hand?: (P) No Do you have to strain [...] 30 minutes. On the 15 of the month) 3 tablet 3 metoprolol [...] difficult at all Audio/Visual screen: (only for [facility] to Medicare visit) Normal Audio Screen: Is [...] records? Yes Advanced Directive Durable Power of Ornament Maker Hand: Yes Living Will: Yes Care Team Providers: Patient Care Team: Beau Clement MD as PCP - General (Family Medicine) Beau Clement MD as PCP - Essence Attributed PCP Primary Pharmacy/DME suppliers: [id number] [place] [address] - [address] [facility] [address] Counseling and Referral of Preventative Services: Please [...] Implant Name Type Inv. Item Serial No. Leaf Stripper Lot No. LRB No. Used [employer] LENS IOL POSTERIOR BICONVEX OPTIC SINGLE PIECE ENVISTA 6.0X12.5 +18.5D HYDROPHOBIC ACRYLIC [id number] - [id number] [employer] Lens Iol Posterior Biconvex Optic Single Piece Envista 6.0x12.5 +18.5d Hydrophobic Acrylic [id number] [employer] Left 1 Implanted INDICATION FOR PROCEDURE The [...] Preoperative Assessment and Planning CPAP Clinic Location: [facility] The night before your surgery: [...] of surgery * If having surgery at [facility], you may want to bring a credit card if you want to use our Mobile Pharmacy for your discharge medications. Mobile pharmacy is not available at [facility], the [facility], or [facility]. Outpatient Surgery: * You must have a [...] Planning Perioperative Nursing Note Telephone Preoperative Evaluation ([facility]) - TELEPHONE ONLY, NO PHYSICAL EXAM Date: [...] expects to be discharged to:: Private residence (Telecommunications Project Manager and Caregiver: ) COVID Screening Covid-19 Screening [...] 20 seconds. Use an alcohol- based hand branner machine tender that contains at least 60% alcohol if [...] your insurance card, a photo ID (example: Telecommunications Project Manager's License) and a method of payment for [...] Pathway to Excellent Care by the followinglink: [email or web address] How To Prepare Your Skin [...] Remove nail coverings, artificial nails and nail syriac. The Morning of Surgery: Take a shower [...] 20 seconds. Use an alcohol- based hand branner machine tender that contains at least 60% alcohol if soap and water are not available. These are general guidelines, but if have been told by a physician that you should not perform any of the above, please follow physician's guidelines. If you have questions, please call the CPAP Staff at [phone], Wednesday-Wednesday 8am-4:30pm. All patients should read the below section: All visitors/patients are being asked to wear a clean face mask when entering the hospital. COVID 19 Updates & Visitor Policy: Please access [email or web address] for the most updated information. Information on [facility]: Please view [email or web address] (Patient & Visitor Information) for additional details regarding Advanced Directive forms, AWARE, directions, parking information, lodging, Internet access, dining and more. Information on [facility] or [facility] ([facility]): Please view [email or web address] (Patient and Visitor Information) for parking/directions and more. For MyChart information, to activate account or password recovery, please go to [email or web address] or call [phone] (toll-free: [phone]). Information for Suicide Prevention: National Suicide Prevention Lifeline (0-963- 173-KXYM (7174)). Surgery Times: For patients having surgery @ [facility], [facility], [facility] or [facility] ([facility]), if your surgeon's office has not notified you of your surgery time by NOON THE BUSINESS DAY BEFORE your surgery, please call [phone] and ask for your surgeon's office Dr. [...] Age-related nuclear cataract of left eye- Primary documented in this encounter Admitting Diagnoses Diagnosis Age-related nuclear cataract of left eye documented in this encounter Administered Medications Inactive Administered Medications - up to 3 most recent administrations Medication Order MAR Action Action Date Dose Rate Site Carrier Fluids for Secondary Infusion - 0.9% Sodium Chloride 30 mL, intravenous, As needed, For priming tubing and/or flushing, Starting on Wed12/02/21 at 0639, Pre-Op, 0-250 ml/hr to flush line after IV infusions when no maintenance IV ordered. Infuse 30mL at the same rate as the secondary infusion. Run as primary IV, not intended for KVO. DILATING COCKTAIL OPHTHALMIC GEL ophthalmic solution - [...] Given 12/02/2021 7:03 AM CDT 0.3 mL sodium chloride 0.9% flush 0.5-20 mL 0.5-20 mL, intra-catheter, Every 8 hours scheduled, First dose on Wed12/02/21 at 0715, Pre-Op, Flush volume based on line type and size. sodium chloride 0.9% flush 0.5-20 mL 0.5-20 mL, intra-catheter, As needed, line care, Starting on Wed12/02/21 at 0639, Pre-Op, Flush volume based on line type and size. Flush before and after each use. documented in this encounter Discontinued Medications Medication [...] Surgery 0703 (Given - Provid er: Arely Ramsey, BOBBY)0730 (Given - Provider: Arely Ramsey RN) sodium [...] Count Last Ordered Date First Ordered Date balanced salt soln no.2 irri g. (BSS) intraocular solution 12/02/2021 BSS Plus-lidocaine 0.375%-EP INEPHrine 0.25 mg (Krystal Nelson) preservative free ophthalmic solution (total volume 1 mL) 12/02/2021 BSS-EPINEPHrine 0.3 mg prese rvative free intraocular solution (total volume 500 mL) 12/02/2021 Carrier Fluids for Secondary Infusion - 0.9% Sodium Chloride 12/02/2021 cefuroxime (ZINACEF) 20 mg/2 mL in sodium chloride 0.9% intracameral (premix) 20 mg 12/02/2021 chondroitin sulf-sod hyaluro n (DUOVISC) 3 %-4 %(0.5 mL) 1 % (0.55 mL) intraocular kit 12/02/2021 lidocaine PF (XYLOCAINE) 10 mg/mL (1 %) preservative free injection 2-10 mg 12/02/2021 naloxone (NARCAN) 0.4 mg/mL injection 0.04-0.4 mg 12/02/2021 ondansetron (ZOFRAN) injection 4 mg 12/02 povidone-iodine (BETADINE ME EP) 5 % ophthalmic solution 12/02/2021 prochlorperazine (COMPAZINE) injection 5 mg 12/02/2021 sodium chloride 0.9% flush 0.5-20 mL 4 11/07 tetracaine (PF) (ALTACAINE) 0.5 % ophthalmic solution 1 12/02/2021 tobramycin-dexAMETHasone (TO BRADEX) 0.3-0.1 % ophthalmic ointment 1 12/02/2021 trypan blue (VISIONBLUE) 0.0 6 % intraocular solution 1 12/02/2021 documented in this encounter Care Teams Ambulatory Nurse Relationship Specialty Start Date End Date Beau Clement MD [address] [place] [address] PCP - Essence Attributed PCP 03/08/17 Beau Clement MD [address] [place] [address] PCP - General Family Medicine 07/13/18 documented as of this encounter
--- OUTSIDE RECORDS SUMMARY | 2024-03-18 22:42 | XMS_ITS | Encounter Summary ---
Author Organization [facility] Address [address] [place] [address] Care Team Providers Care Chief Talent Officer Name Role Phone Beau Clement MD Unavailable +- [phone] Beau Clement MD Primary Care Provid er Reason for Visit * Reason Onset Date Comments Additional Services Or Orders 11/12/2021 Encounter Details Date Type Department Care Team (Late st Contact Info) Description 11/12/2021 Telephone [facility] Family Medicine [address] [address] Beau Clement MD [address] [place] [address] Additional Services Or Orders Social History Tobacco Use Types Packs/Day Years Used Date Smoking Tobacco: Never Smokeless Tobacco: Never Alcohol Use Standard Drinks/Week Comments Not Currently 0 (1 standard drink = 0.6 oz pur e alcohol) AUDIT-C Answer Date Recorded Q1: How often do you have a drink containing alc ohol? 2-4 times a month 11/05/2021 Q2: How many drinks containi ng alcohol do you have on a typical day when you are drinking? 1 or 2 11/05/2021 Q3: How often do you have si x or more drinks on one occasion? 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 * Telephone Encounter - Brianna Ramírez LPN - 11/12/2021 3:46 PM CDT Please notify the patient * Telephone Encounter - Beau Clement MD - 11/12/2021 1:45 PM CDT Labs ordered. 8h fast. * Telephone Encounter - Saadia Huitron - 11/12/2021 11:34 AM CDT Additional Services or Orders Type of Service Requested:Labs Reason for Request Annual Labs Details Regarding Additional Services Patient has Medicare and is schedule for a Annual Medicare Exam on 11/27/21 Where will services be performed: [facility] Caller's Callback #: [phone] Additional Comments: Please let patient know when order has been placed so she can get lab work performed. Does message need to be routed?Yes-Action Needed documented in this encounter Plan of Treatment Not on file documented as of this encounter Visit Diagnoses Not on filedocumented in this encounter Care Teams Chief Talent Officer Relationship Specialty Start Date End Date Beau Clement MD [facility] [address] [place] [address] PCP - Essence Attributed PCP 03/08/17 Beau Clement MD [facility] [address] [place] [address] PCP - General Family Medicine 07/13/18 documented as of this encounter
--- OUTSIDE RECORDS SUMMARY | 2024-03-18 22:42 | XMS_ITS | Encounter Summary ---
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 Gender Identity Female 08/22/2019 6:09 AM CDT Sexual Orientation Straight 08/22/2019 6: 09 AM CDT documented as of this encounter Plan of Treatment Not on file documented as of this encounter Procedures Procedure Name Priority Date/Time Associated Diagnosis Comments ALBUMIN CREATININE RATIO, URINE Routine 11/17/2021 8:13 AM CDT Essential (primary) hypertension EGFR Routine 11/17/2021 8:08 AM CDT Essential (primary) hypertension Dyslipidemia DIFFERENTIAL AUTO Routine 11/17/2021 8:0 8 AM CDT Essential (primary) hypertension CBC WITH AUTO DIFFERENTIAL Routine 11/17/2021 8:08 AM CDT Essential (primary) hypertension LIPID PANEL Routine 11/17/2021 8:08 AM CDT Essential (primary) hypertension Dyslipidemia COMPREHENSIVE METABOLIC PANEL Routine 11/17/2021 8:08 AM CDT Essential (primary) hypertension Dyslipidemia documented in this encounter Results * Albumin Creatinine Ratio, Urine (11/17/2021 8:13 AM CDT) Albumin Ur <12.0 mg/L [facility] Comment: Interpretive Data No reference range established. Current interpretive data was last revised 2018. Testing performed by: [address] [address] Creatinine Ur 64.1 mg/dL [facility] Comment: Interpretive Data No reference range established. Current interpretive data was last revised 2018. Testing performed by: [address] [address] Albumin Creatinine Ratio, Ur <19 1 - 29 mg/g [facility] Comment:Testing performed by : [address] [address] Urine 11/17/2021 8:13 AM CDT 11/17/2021 9:15 AM CDT Beau Clement MD LAB URINE ORDERABLES Final Result [facility] [address] [facility] Department [place] [address] * eGFR (11/17/2021 8:08 AM CDT) [facility] eGFR 67 mL/min/1. 73 m2 [facility] Comment: Interpretive [...] was last reviewed 2021. Testing performed by: [facility], [address] [place] [address]., [address] Blood 11/17/2021 8:08 AM CDT 11/17/2021 8:28 AM CDT us Beau Clement MD LAB BLOOD ORDERABLES Final Result [facility] [address] [facility] Department [place] [address] * Differential, auto (11/17/2021 8:08 AM CDT) Neutrophil abs 4.3 1.7 - 6.5 K/cumm [facility] Comment:Testing performed by : [address], [place]., [address] Imm gran abs 0.0 0.0 - 0.1 K/cumm [facility] Comment:Testing performed by : [address], [place]., [address] Lymphocyte abs 1.5 0.8 - 3.3 K/cumm [facility] Comment:Testing performed by : [address], [place]., [address] Monocyte abs 0.8 0.2 - 0.8 K/cumm [facility] Comment:Testing performed by : [address] [address] Eosinophil abs 0.2 0.0 - 0.5 K/cumm [facility] Comment:Testing performed by : [address] [address] Basophil abs 0.1 0.0 - 0.1 K/cumm [facility] Comment:Testing performed by : [address] [address] Neutrophil pct 62.0 % [facility] Comment: Interpretive Data Percent cell count reference ranges are not reported, since discordance with absolute values may lead to misinterpretation of CBC data. Current Interpretive Data was last revised on 2017. Testing performed by: [address] [address] Imm gran pct 0.4 % [facility] Comment: Interpretive Data Percent cell count reference ranges are not reported, since discordance with absolute values may lead to misinterpretation of CBC data. Current Interpretive Data was last revised on 2017. Testing performed by: [address] [address] Lymphocyte pct 21.8 % [facility] Comment: Interpretive Data Percent cell count reference ranges are not reported, since discordance with absolute values may lead to misinterpretation of CBC data. Current Interpretive Data was last revised on 2017. Testing performed by: [address] [address] Monocyte pct 11.5 % [facility] Comment: Interpretive Data Percent cell count reference ranges are not reported, since discordance with absolute values may lead to misinterpretation of CBC data. Current Interpretive Data was last revised on 2017. Testing performed by: [address] [address] Eosinophil pct 2.9 % [facility] Comment: Interpretive Data Percent cell count reference ranges are not reported, since discordance with absolute values may lead to misinterpretation of CBC data. Current Interpretive Data was last revised on 2017. Testing performed by: [address] [address] Basophil pct 1.4 % [facility] Comment: Interpretive Data Percent cell count reference ranges are not reported, since discordance with absolute values may lead to misinterpretation of CBC data. Current Interpretive Data was last revised on 2017. Testing performed by: [address] [address] Blood 11/17/2021 8:08 AM CDT 11/17/2021 8:28 AM CDT us Beau Clement MD LAB BLOOD ORDERABLES Final Result [facility] [address] [facility] Department of Laboratories [place], [place] [id number] * (ABNORMAL) CBC with auto differential (11/17/2021 8:08 AM CDT) WBC 6.9 3.8 - 9.9 K/cumm [facility] Comment:Testing performed by : [address] [address] Hgb 12.3 11.9 - 15.5 g/dL [facility] Comment:Testing performed by : [address] [address] Hct 37.7 35.6 - 45.5 % [facility] Comment:Testing performed by : [address] [address] Plt 331 150 - 400 K/cumm [facility] Comment:Testing performed by : [address] [address] MPV 8.6(L) 9.1 - 12.3 fL [facility] Comment:Testing performed by : [address] [address] RBC 3.89(L) 3.90 - 5.20 M/cumm [facility] Comment:Testing performed by : [address] [address] MCV 96.9(H) 81.3 - 96.4 fL [facility] Comment:Testing performed by : [address] [address] MCH 31.6 27.1 - 33.3 pg [facility] Comment:Testing performed by : [address] [address] MCHC 32.6 32.3 - 35.7 g/dL [facility] Comment:Testing performed by : [address], [address] RDW CV 13.6 11.1 - 14.9 % [facility] Comment:Testing performed by : [address], [address] RDW SD 48.3(H) 35.7 - 48.1 fL [facility] Comment:Testing performed by : [address], [address] NRBC abs 0.00 0.00 - 0.01 K/cumm [facility] Comment:Testing performed by : [address] [address] Blood 11/17/2021 8:08 AM CDT 11/17/2021 8:28 AM CDT us Beau Clement MD LAB BLOOD ORDERABLES Final Result [facility] [address] [facility] Department of Laboratories [place], [place] [id number] * Comprehensive metabolic panel (11/17/2021 8:08 AM CDT) [facility] Sodium 140 135 - 145 mmol/L [facility] Comment:Testing performed by : [address], [place]., [address] Potassium, pl 4.6 3.3 - 4.9 mmol/L [facility] Comment:Testing performed by : [address], [place]., [address] Chloride 102 97 - 110 mmol/L [facility] Comment:Testing performed by : [address], [place]., [address] CO2 28 22 - 32 mmol/L [facility] Comment:Testing performed by : [address], [place]., [address] Anion gap 10 2 - 15 mmol/L [facility] Comment:Testing performed by : [address], [place]., [address] BUN 15 8 - 25 mg/dL [facility] Comment:Testing performed by : [address], [place]., [address] Creatinine 0.90 0.60 - 1.10 mg/dL [facility] Comment:Testing performed by : [address], [place]., [address] Glucose 106 70 - 199 mg/dL [facility] Comment: Interpretive Data Fasting glucose >/= 126 [...] Current interpretive data was last revised 2017. Testing performed by: [address] [address] Calcium 9.9 8.5 - 10.3 mg/dL [facility] Comment:Testing performed by : [address], [place]., [address] Bilirubin, total 0.9 0.1 - 1.2 mg/dL [facility] Comment:Testing performed by : [address], [place]., [address] Protein, pl 7.1 6.5 - 8.5 g/dL [facility] Comment:Testing performed by : [address] [address] Albumin 4.2 3.5 - 5.0 g/dL [facility] Comment:Testing performed by : [address] [address] Alk phos 53 40 - 130 Units/L [facility] Comment:Testing performed by : [address] [address] ALT 15 7 - 45 Units/L [facility] Comment:Testing performed by : [address] [address] AST 25 10 - 45 Units/L [facility] Comment:Testing performed by : [address] [address] Blood 11/17/2021 8:08 AM CDT 11/17/2021 8:28 AM CDT Beau Clement MD LAB BLOOD ORDERABLES Final Result [facility] [address] [facility] Department [place] [address] * (ABNORMAL) Lipid panel (11/17/2021 8:08 AM CDT) Cholesterol 243(H) 30 - 199 mg/dL [facility] Comment: Interpretive [...] last revised on 2017. Testing performed by: [address] [address] Triglycerides 87 <=149 mg/dL [facility] Comment: Interpretive Data Ages [...] last revised on 2017. Testing performed by: [address] [address] HDL 102 >=40 mg/dL [facility] Comment: Interpretive Data Ages [...] last revised on 2017. Testing performed by: [facility], [address] [place] [address]., [address] LDL, calculated 124 <=129 mg/dL [facility] Comment: Interpretive Data Ages [...] last revised on 2017. Testing performed by: [address] [address] Non-HDL Cholesterol 141 mg/dL [facility] Comment: Interpretive Data Ages < [...] last revised on 2017. Testing performed by: [address] [address] Chol/HDL ratio 2 [facility] Comment:Testing performed by : [address] [address] Blood 11/17/2021 8:08 AM CDT 11/17/2021 8:28 AM CDT Beau Clement MD LAB BLOOD ORDERABLES Final Result [facility] [address] [facility] [place] [address] documented in this encounter Visit Diagnoses Diagnosis Essential (primary) hypertension Unspecified essential hypertension Dyslipidemia Other and unspecified hyperlipidemia documented in this encounter Care Teams Manager Application Relationship Specialty Start Date End Date Beau Clement MD [address] [place] [address] PCP - Essence Attributed PCP 03/08/17 Beau Clement MD [address] [place], [place] [address] PCP - General Family Medicine 07/13/18 documented as of this encounter
--- OUTSIDE RECORDS SUMMARY | 2024-03-18 22:42 | XMS_ITS | Encounter Summary ---
Author Organization [facility] Address [address] [place] [address] Phone Care Team Providers Care Fitting Room Inspector Name Role Phone Beau Clement MD Unavailable [phone] Beau Clement MD Primary Care Provid er Encounter Details Date Type Department Care Team (Late st Contact Info) Description 12/01/[address] [place] [address] Addy Nguyen MD [address] [place], [place] [id number] Social History Tobacco Use Types Packs/Day Years [...] on file 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 Gender Identity Female 08/22/2019 6:09 AM CDT Sexual Orientation Straight 08/22/2019 6: 09 AM CDT documented as of this encounter Ordered Prescriptions Prescription Sig Dispense Quantity Refills Last Filled Start Date End Date ofloxacin (OCUFLOX) 0.3 % ophthalmic solution Administer 1 drop into the left eye 4 (four) times a day Start after 12-02-21 surgery 5 mL 1 12/01/2021 2 prednisoLONE acetate (PRED FORTE) 1 % ophthalmic suspension Administer 1 drop into the left eye 4 (four) times a day Start after 12-02-21 surgery 10 mL 1 12/01/2021 2 documented in this encounter Miscellaneous Notes * Telephone Encounter - Ray Schwartz COA - 12/01/2021 9:38 AM CDT I called pt with surgery arrival time. Arrival: 6:30am No eating or drinking after midnight the morning of surgery. Please follow TPAP's instructions. Food Server over 18 to pick you up from surgery. Food Server to bring you in for your 1 day post-op appointment. Please fruit or nut picker your eye drops from the pharmacy. Please bring drops with you to your 1 day post-op appointment. documented in this encounter Plan of Treatment Not on file documented as of this encounter Visit Diagnoses Not on filedocumented in this encounter Care Teams Fitting Room Inspector Relationship Specialty Start Date End Date Beau Clement MD [address] [place] [address] PCP - Essence Attributed PCP 03/08/17 Beau Clement MD [address] [place] [address] PCP - General Family Medicine 07/13/18 documented as of this encounter
--- OUTSIDE RECORDS SUMMARY | 2024-03-18 22:42 | XMS_ITS | Encounter Summary ---
Author Organization [facility] Address [address] [facility] [address] [place] [address] Care Team Providers Care Ceiling Insulation Blower Name Role Phone Beau Clement MD Unavailable + [phone] Beau Clement MD Primary Care Provid er Reason for Visit * Reason Comments Medicare Wellness Pt here for medicare wellness. Encounter Details Date Type Department Care Team (Latest Contact Info) Description 11/27/2021 10:30 AM CDT Office Visit [facility] Family Medicine [address] [address] Beau Clement MD [address] [address] Encounter for Medicare annual wellness exam (Primary Dx); Vascular dementia without behavioral disturbance (CMS/HCC) (HCC); Cerebral microvascular disease; Essential (primary) hypertension; Dyslipidemia; Osteopenia of both hips; Depression screening; At standard risk for fall Social History Tobacco Use Types Packs/Day [...] on file 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 Gender Identity Female 08/22/2019 6:09 AM CDT Sexual Orientation Straight 08/22/2019 6: 09 AM CDT documented as of this encounter Last Filed Vital Signs Vital Sign Reading Time Taken Comments Blood Pressure 126/82 11/27/2021 10:28 AM CDT Pulse 54 11/27/2021 10:28 AM CDT Temperature 36.4 ??C (97.6 ??F) 11/27/2021 10:28 AM C DT Respiratory Rate 16 11/27/2021 10:28 AM CDT Oxygen Saturation 99% 11/27/2021 10:28 AM CDT Inhaled Oxygen Concentration - - Weight 45.4 kg (100 lb) 11/27/2021 10:28 AM CDT Height 157.5 cm (5' 2 ) 11/27/2021 10:28 AM CDT Body Mass Index 18.29 11/27/2021 10:28 AM CDT documented in this encounter Progress Notes * Beau Clement MD - 11/27/2021 10:30 AM CDT Images from the original note were not included. MEDICARE ANNUAL WELLNESS VISIT Dottie Bryant Basic Information In general, would you say your health is: (P) Good Do you have an advance directive, such as a living will or durable power of consumer attorney?: (P) No Would you like information regarding Advanced Directiv (Living Will) and/or Durable Power of Extension Clerk?: (P) No Do you have to strain [...] ELECTROPHYSIOLOGY MAPPING AND ABLATION 2019 CATARACT EXTRACTION 2017 SECTION 01/1975 EYE SURGERY 2018 SKIN CANCER EXCISION 2014 nose VEIN SURGERY [...] difficult at all Audio/Visual screen: (only for [place] to Medicare visit) Normal Audio Screen: Is [...] records? Yes Advanced Directive Durable Power of Extension Clerk: Yes Living Will: Yes Care Team Providers: Patient Care Team: Beau Clement MD as PCP - General (Family Medicine) Beau Clement MD as PCP - Essence Attributed PCP Primary Pharmacy/DME suppliers: [id number] [place], [place] - [address] [facility] [address] Counseling and Referral of Preventative Services: Please [...] Encounter for Medicare annual wellness exam- Primary Vascular dementia without behavioral disturbance (HCC) Cerebral microvascular disease Unspecified cerebrovascular disease Essential (primary) hypertension Unspecified essential hypertension Dyslipidemia Other and unspecified hyperlipidemia Osteopenia of both hips Depression screening At standard risk for fall documented in this encounter Discontinued Medications Medication Sig Discontinue Reason Start Date End Da te donepeziL (ARICEPT) 5 mg tabletIndications:Shor t-term memory loss TAKE 1 TABLET BY MOUTH EVERY DAY AT NIGHT 11/19/2021 11/27/2021 multivitamin capsuleIndications:Vit aranda Deficiency Prevention Take 1 capsule by mouth every morning 11/27/2021 ofloxacin (OCUFLOX) 0.3 % ophthalmic solution Administer 1 drop into the left eye 4 (four) times a day Start after 12-02-21 surgery 10/24/2021 11/27/2021 prednisoLONE acetate (PRED FORTE) 1 % ophthalmic suspension Administer 1 drop into the left eye 4 (four) times a day Start after 12-02-21 surgery 10/24/2021 11/27/2021 documented as of this encounter Care Teams Ceiling Insulation Blower Relationship Specialty Start Date End Date Beau Clement MD [address] [place] [address] PCP - Essence Attributed PCP 03/08/17 Beau Clement MD [address] [place] [address] PCP - General Family Medicine 07/13/18 documented as of this encounter
--- OUTSIDE RECORDS SUMMARY | 2024-03-18 22:42 | XMS_ITS | Encounter Summary ---
Author Organization [facility] Healthcare Address [address] [place] [address] Care Team Providers Care Insurance Claims Examiner Name Role Phone Beau Clement MD Unavailable +1- [phone] Beau Clement MD Primary Care Provid er Reason for Referral * MRI/CAT/PET Scan (Routine) - Closed Specialty Diagnoses / Procedures Referred By Dede cat Referred To Contact Radiology Diagnoses Memory impairment Late onset Alzheimer's dementia without behavioral disturbance (HCC) Short-term memory loss Procedures MRI Brain WO Contrast Beau Clement MD [address] [place] [address] Phone: tel: fax: [address] [address] Referral ID Status Reason Start Date Expiration Date Visits Re quested Visits Authorized [id number] Closed 09/25/2021 12/24/2021 1 1 Reason for Visit * MRI/CAT/PET Scan (Routine) - Closed Specialty Diagnoses / Procedures Referred By Contac t Referred To Contact Radiology Diagnoses Memory impairment Late onset Alzheimer's dementia without behavioral disturbance (HCC) Short-term memory loss Procedures MRI Brain WO Contrast Beau Clement MD [address] [place] [address] Phone: tel: fax: [address] [address] Referral ID Status Reason Start Date Expiration Date Visits Re quested Visits Authorized [id number] Closed 09/25/2021 12/24/2021 1 1 Encounter Details Date Type Department Care Team (Latest Contact Info) Description 10/15/2021 7:41 AM CDT - 10/15/2021 11:59 PM CDT Hospital Encounter [facility] [address] [place] [address] Memory impairment; Late onset Alzheimer's dementia without behavioral disturbance (HCC); Short-term memory loss Discharge Disposition: Discharge to home or self [...] on file 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 Gender Identity Female 08/22/2019 6:09 AM CDT Sexual Orientation Straight 08/22/2019 6: 09 AM CDT documented as of this encounter Medications at Time of Discharge aspirin 81 mg enteric coated tabletIndications :heart health Take 1 tablet (81 mg total) by mouth every morning calcium carbonate/vitamin D3 (CALCIUM 500 + D ORAL)Indications: supplement Take 1 tablet by mouth every morning amoxicillin-clavu lanate (AUGMENTIN) 875-125 mg per tablet 09/03/2021 10/31/2021 atorvastatin (LIPITOR) 10 mg tablet TAKE ONE TABLET BY MOUTH ONCE DAILY 90 tablet 2 02/17/2021 10/31/2021 donepeziL (ARICEPT) 5 mg tabletIndications :Short-term memory loss TAKE 1 TABLET BY MOUTH EVERY DAY AT NIGHT 30 tablet 10/02/2021 10/27/2021 ibandronate (BONIVA) 150 mg tabletIndications :Osteopenia of both hips TAKE 1 TABLET (150 MG TOTAL) BY MOUTH EVERY 30 (THIRTY) DAYS TAKE IN AM WITH GLASS OF WATER PRIOR TO FOOD, DON'T LIE DOWN FOR 30 MINUTES. 3 tablet 3 10/06/2021 12/19/2022 metoprolol XL (TOPROL-XL) 25 mg extended release tablet TAKE ONE TABLET BY MOUTH ONCE DAILY 90 tablet 2 02/17/2021 11/11/2021 multivitamin capsuleIndication s:Vitamin Deficiency Prevention Take 1 capsule by mouth every morning 11/27/2021 documented as of this encounter Discharge Disposition Disposition Code Departure Means Destination Discharge to home or self care documented in this encounter Plan of Treatment Not on file documented as of this encounter Procedures Procedure Name Priority Date/Time Associated Diagnosis Comments MRI BRAIN WO CONTRAST Schedule Routine, Read Routine (OP Routine) 10/15/2021 8:15 AM CDT Memory impairment Late onset Alzheimer's dementia without behavioral disturbance (HCC) Short-term memory loss documented in this encounter Results * MRI Brain WO [...] D: ??10/15/2021 1:16 PM T: Report ID: [id number] Reading Location: ??[id number] Procedure Note Robert Naik DO - 10/15/2021 EXAM DESCRIPTION: MRI BRAIN [...] signed by Robert SHARMA T: Report ID: [id number] Reading Location: [place] [address] Beau Clement MD IMG MRI PROCEDURES F inal Result documented in this encounter Visit Diagnoses Diagnosis Memory impairment Memory loss Late onset Alzheimer's dementia without behavioral disturbance (HCC) Short-term memory loss Memory loss documented in this encounter Care Teams Insurance Claims Examiner Relationship Specialty Start Date End Date Beau Clement MD [address] [place] [address] PCP - Essence Attributed PCP 03/08/17 Beau Clement MD [address] [place] [address] PCP - General Family Medicine 07/13/18 documented as of this encounter
--- OUTSIDE RECORDS SUMMARY | 2024-03-18 22:42 | XMS_ITS | Encounter Summary ---
Author Organization [facility] Healthcare Address [address] [place] [address] Care Team Providers Care Flotation Tender Helper Name Role Phone Beau Clement MD Unavailable +- [phone] Beau Clement MD Primary Care Provid er Reason for Referral * Diagnostic Imaging (Routine) - Closed Specialty Diagnoses / Procedures Referred By Dede cat Referred To Contact Diagnoses Encounter for screening mammogram for malignant neoplasm of breast Procedures Screening Mammogram Bilateral W Beau Ascencio MD [address] [place] [address] Phone: tel: fax: [address] [address] Referral ID Status Reason Start Date Expiration Date Visits Re quested Visits Authorized [id number] Closed 09/04/2020 10/04/2021 1 1 Reason for Visit * Diagnostic Imaging (Routine) - Closed Specialty Diagnoses / Procedures Referred By Dede cat Referred To Contact Diagnoses Encounter for screening mammogram for malignant neoplasm of breast Procedures Screening Mammogram Bilateral W Beau Ascencio MD [address] [place] [address] Phone: tel: fax: [address] [address] Referral ID Status Reason Start Date Expiration Date Visits Re quested Visits Authorized [id number] Closed 09/04/2020 10/04/2021 1 1 Encounter Details Date Type Department Care Team (Latest Contact Info) Description 12/06/2020 9:29 AM CDT - 12/06/2020 11:59 PM CDT Hospital Encounter [facility] Medical Office Bldg [address] 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 Gender Identity Female 08/22/2019 6:09 AM CDT Sexual Orientation Straight 08/22/2019 6: 09 AM CDT documented as of this encounter Medications at Time of Discharge aspirin 81 mg enteric coated tabletIndication s:heart health Take 1 tablet (81 mg total) by mouth every morning calcium carbonate/vitami n D3 (CALCIUM 500 + D ORAL)Indications :supplement Take 1 tablet by mouth every morning atorvastatin (LIPITOR) 10 mg tablet TAKE ONE TABLET BY MOUTH ONCE DAILY 90 tablet 2 06/04/2020 02/17/2021 methylPREDNISolo ne (MEDROL DOSEPACK) 4 mg DosepackIndicati ons:Chronic left SI joint pain Take as directed on package. 21 tablet 11/07/2020 04/16/2021 metoprolol XL (TOPROL-XL) 25 mg extended release tablet TAKE ONE TABLET BY MOUTH ONCE DAILY 90 tablet 2 06/04/2020 02/17/2021 multivitamin capsuleIndicatio ns:Vitamin Deficiency Prevention Take 1 capsule by mouth every morning 11/27/2021 traMADoL (ULTRAM) 50 mg tablet Take 1 tablet (50 mg total) by mouth every 8 (eight) hours as needed for pain 21 tablet 11/22/2020 02/24/2021 documented as of this encounter Discharge Disposition Disposition Code Departure Means Destination Discharge to home or self care documented in this encounter Plan of Treatment Not on file documented as of this encounter Procedures Procedure Name Priority Date/Time Associated Diagnosis Comments SCREENING MAMMOGRAM BILATERAL W MAURICIO Schedule Routine, Read Routine (OP Routine) 12/06/2020 9:45 AM CDT Encounter for screening mammogram for malignant neoplasm of breast documented in this encounter Results * Screening Mammogram Bilateral W Mauricio (12/06/2020 9:45 AM CDT) Anatomical Region Laterality Modality Breast Bilateral Mammography Impressions 12/06/2020 10:22 AM CDT BI-RADS?? ATLAS category (overall): 1 Negative There is no mammographic evidence of malignancy. A 1 year screening mammogram is recommended. The patient has been or will be contacted. We recommend annual screening mammography for women at average risk of breast cancer beginning at age 40, based on guidelines of the [employer] (ACR Practice Parameter for the Performance of Screening and Diagnostic Mammography) and [employer]. For women with and elevated risk of breast cancer, please refer to the ACR Practice Parameter for specific screening recommendations. The patient will be entered into a reminder system with a target due date of 1 year for her next screening exam. Narrative 12/06/2020 10:22 AM CDT Screening Mammogram Bilateral W Mauricio: 12/06/20 The study was acquired using full field digital technology and interpreted from soft copy. 2D digital mammographic views, as well as 3D digital tomosynthesis were performed in the CC and MLO projections. CLINICAL: ??Encounter for screening mammogram for malignant neoplasm of breast ??Medical history includes hypertension and developmental delay. ??No known family history of breast cancer. COMPARISONS: 11/23/2018 Screening Mammogram 2D Bilateral 03/18/2016 Screening Mammogram Bilateral W Mauricio BREAST TISSUE: The breasts are almost entirely fatty. FINDINGS: No suspicious masses, suspicious calcifications, or other suspicious findings are seen within either breast. There has been no suspicious change. Beau Clement MD IMG MAMMO PROCEDURES Final Result documented in this encounter Visit Diagnoses Diagnosis Encounter for screening mammogram for malignant neoplasm of breast documented in this encounter Care Teams Flotation Tender Helper Relationship Specialty Start Date End Date Beau Clement MD [address] [place] [address] PCP - Essence Attributed PCP 03/08/17 Beau Clement MD [address] [place] [address] PCP - General Family Medicine 07/13/18 documented as of this encounter
--- OUTSIDE RECORDS SUMMARY | 2024-03-18 22:42 | XMS_ITS | Encounter Summary ---
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 * Telephone Encounter - Beau Clement MD - 12/09/2020 3:20 PM CDT The MRI shows significant arthritis of the lower back, along with some spinal canal narrowing and some significant foraminal narrowing, along the sides of the spine. This should be amenable to Pain Management treatment. * Telephone Encounter - Wanda May LPN - 12/09/2020 2:50 PM CDT Results are in chart, please advise. (They are under the 11/2020 MRI results at the bottom you have to click the link where it says results) * Telephone Encounter - Beau Clement MD - 12/09/2020 12:48 PM CDT I do not have the MRI results yet, as there were not done at [facility]. I would appreciate it if youcould tract them down. Thank you. * Telephone Encounter - Jennifer Huizar - 12/09/2020 10:52 AM CDT Edgard is requesting the results of her MRI done Wednesday. She is needing the results in order to see pain mgmt. Thanks. Edgard ph [phone] (on HIPAA) documented in this encounter Plan of Treatment Not on file documented as of this encounter Visit Diagnoses Not on filedocumented in this encounter Care Teams Autocad Draftsman Relationship Specialty Start Date End Date Beau Clement MD [address] [place] [address] PCP - Essence Attributed PCP 03/08/17 Beau Clement MD [address] [place] [address] PCP - General Family Medicine 07/13/18 documented as of this encounter
--- OUTSIDE RECORDS SUMMARY | 2024-03-18 22:42 | XMS_ITS | Encounter Summary ---
Author Organization [facility] Address [address] [place] [address] Phone Care Team Providers Care Supervisor Education Name Role Phone Beau Clement MD Unavailable +1- [phone] Beau Clement MD Primary Care Provid er Reason for Visit * Diagnostic Imaging (Routine) - Closed Specialty Diagnoses / Procedures Referred By Dede t Referred To Contact Diagnoses Age-related nuclear cataract of left eye Procedures IOL Biometry - OU - Both Eyes Addy Nguyen MD Phone: tel: fax: [facility] (All Locations) Referral ID Status Reason Start Date Expiration Date Visits Re quested Visits Authorized [id number] Closed 10/24/2021 11/23/2022 1 1 Encounter Details Date Type Department Care Team (Late st Contact Info) Description 11/24/2021 11:30 AM CDT Imaging Exam [facility] Ophthalmology [address] [facility] [address] [place] [address] Age-related nuclear cataract of left eye Social History Tobacco Use Types Packs/Day Years [...] on file 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 Gender Identity Female 08/22/2019 6:09 AM CDT Sexual Orientation Straight 08/22/2019 6: 09 AM CDT documented as of this encounter Plan of Treatment Not on file documented as of this encounter Visit Diagnoses Diagnosis Age-related nuclear cataract of left eye documented in this encounter Orders Imaging Orders Without Results Count Last Order ed Date First Ordered Date IOL BIOMETRY - OU - BOTH EYES 1 11/24/2021 documented in this encounter Care Teams Supervisor Education Relationship Specialty Start Date End Date Beau Clement MD [address] [place] [address] PCP - Essence Attributed PCP 03/08/17 Beau Clement MD [address] [place] [address] PCP - General Family Medicine 07/13/18 documented as of this encounter
--- OUTSIDE RECORDS SUMMARY | 2024-03-18 22:42 | XMS_ITS | Encounter Summary ---
Author Organization [facility] Address [address] [place] [address] Phone Care Team Providers Care Roofing Tile Sorter Name Role Phone Beau Clement MD Unavailable [phone]- [phone] Beau Clement MD Primary Care Provid er Reason for Referral * Diagnostic Imaging (Routine) - Closed Specialty Diagnoses / Procedures Referred By Contemre t Referred To Contact Diagnoses Age-related nuclear cataract of left eye Procedures IOL Biometry - OU - Both Eyes Addy Nguyen MD Phone: tel: fax: [facility] (All Locations) Referral ID Status Reason Start Date Expiration Date Visits Re quested Visits Authorized [id number] Closed 10/24/2021 11/23/2022 1 1 Encounter Details Date Type Department Care Team (Late st Contact Info) Description 10/24/2021 Orders Only 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 Gender Identity Female 08/22/2019 6:09 AM CDT Sexual Orientation Straight 08/22/2019 6: 09 AM CDT documented as of this encounter Plan of Treatment Scheduled Orders Name Type Priority Associated Diagnoses Orde r Schedule IOL Biometry - OU - Both Eyes Ophthalmology Routine Age-related nuclear cataract of left eye 1 Occurrences starting 10/24/2021 until 10/24/2022 Topography Non-Billable - OU - Both Eyes Ophthalmology Routine Age-related nuclear cataract of left eye 1 Occurrences starting 10/24/2021 until 10/24/2022 documented as of this encounter Visit Diagnoses Diagnosis Age-related nuclear cataract of left eye- Primary documented in this encounter Care Teams Roofing Tile Sorter Relationship Specialty Start Date End Date Beau Clement MD [address] [place] [address] PCP - Essence Attributed PCP 03/08/17 Beau Clement MD [address] [place] [address] PCP - General Family Medicine 07/13/18 documented as of this encounter
--- OUTSIDE RECORDS SUMMARY | 2024-03-18 22:42 | XMS_ITS | Encounter Summary ---
Author Organization [facility] Address [address] [place] [address] Phone Care Team Providers Care Commercial Trailer Truck Driver Name Role Phone Beau Clement MD Unavailable [phone]- [phone] Beau Clement MD Primary Care Provid er Encounter Details Date Type Department Care Team (Late st Contact Info) Description 11/24/2021 11:00 AM CDT Imaging Exam [facility] Ophthalmology [facility] [facility] 6th [place] [address] Age-related nuclear cataract of left [...] file 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 Gender Identity Female 08/22/2019 6:09 AM CDT Sexual Orientation Straight 08/22/2019 6: 09 AM CDT documented as of this encounter Plan of Treatment Not on file documented as of this encounter Visit Diagnoses Diagnosis Age-related nuclear cataract of left eye documented in this encounter Orders Imaging Orders Without Results Count Last Order ed Date First Ordered Date TOPOGRAPHY NON-BILLABLE - OU - BOTH EYES 1 11/24/2021 documented in this encounter Care Teams Commercial Trailer Truck Driver Relationship Specialty Start Date End Date Beau Clement MD [address] [place] [address] PCP - Essence Attributed PCP 03/08/17 Beau Clement MD [address] [place] [address] PCP - General Family Medicine 07/13/18 documented as of this encounter
--- OUTSIDE RECORDS SUMMARY | 2024-03-18 22:42 | XMS_ITS | Encounter Summary ---
Author Organization [facility] Address [address] [facility] [address] [place] [address] Care Team Providers Care Joint Filler Name Role Phone Beau Clement MD Unavailable +- [phone] Beau Clement MD Primary Care Provid er Reason for Visit * Reason Onset Date Comments Med Refill 04/16/2021 Encounter Details Date Type Department Care Team (Late st Contact Info) Description 04/16/2021 Telephone [facility] Family Medicine [address] [address] Beau Clement MD [address] [address] Med Refill Social History Tobacco Use Types Packs/Day Years [...] on file 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 ETIC TAPE TYPEWRITER OPERATOR * Telephone Encounter - Beau Clement MD - 04/16/2021 2:16 PM MAGNETIC TAPE TYPEWRITER OPERATOR Rx sent ETIC TAPE TYPEWRITER OPERATOR * Telephone Encounter - Jennifer Huizar - 04/16/2021 9:30 AM CST Edgard states that she is having sinus issues & lung congestion again. He is requesting to have Clarithromycin rx sent to [facility] on . Please advise. Thanks. Edgard [phone] ETIC TAPE TYPEWRITER OPERATOR documented in this encounter Plan of Treatment Not on file documented as of this encounter Visit Diagnoses Not on filedocumented in this encounter Care Teams Joint Filler Relationship Specialty Start Date End Date Beau Clement MD [address] [place], [place] [address] PCP - Essence Attributed PCP 03/08/17 Beau Clement MD [address] [place] [address] PCP - General Family Medicine 07/13/18 documented as of this encounter
--- OUTSIDE RECORDS SUMMARY | 2024-03-18 22:42 | XMS_ITS | Encounter Summary ---
Author Organization [facility] Address [address] [facility] [address] [place] [address] Care Team Providers Care Ortho Rn Name Role Phone Beau Clement MD Unavailable +- [phone] Beau Clement MD Primary Care Provid er Reason for Visit * Reason Onset Date Comments Medical Question/Miscellaneous 03/19/2021 Encounter Details Date Type Department Care Team (Late st Contact Info) Description 03/19/2021 Telephone [facility] Family Medicine [address] [address] Beau Clement MD [address] [address] Medical Question/Miscellaneous Social History Tobacco [...] on file 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 notified and voiced understanding PUMP OPERATOR * Telephone Encounter - Wanda May LPN - 03/19/2021 1:09 PM ACID PUMP OPERATOR This patient does not accept calls from private numbers. Please call and let patients know.Thank you. PUMP OPERATOR * Telephone Encounter - Beau Clement MD - 03/19/2021 1:03 PM ACID PUMP OPERATOR We'll stick with the 5mg then. I am still working on the MM forms PUMP OPERATOR * Telephone Encounter - Karla Quigley - 03/19/2021 9:12 AM CST Pt's Edgard called and stated that the pt has been taking donepezil 5 mg 1x at night, he states she has been doing good on this and was wondering if you still wanted to increase it to the 10 mgand if she needed an appt for a follow up since starting the med. Edgard was also wondering about theforms for her to have the medical marijuana he states he filled out their portion online and was waiting for you to complete your portion or do they need to come in for that also. Please advise, thank you. Edgard's ph [phone] PUMP OPERATOR documented in this encounter Plan of Treatment Not on file documented as of this encounter Visit Diagnoses Not on filedocumented in this encounter Care Teams Ortho Rn Relationship Specialty Start Date End Date Beau Clement MD [address] [place] [address] PCP - Essence Attributed PCP 03/08/17 Beau Clement MD [address] [place] [address] PCP - General Family Medicine 07/13/18 documented as of this encounter
--- OUTSIDE RECORDS SUMMARY | 2024-03-18 22:42 | XMS_ITS | Encounter Summary ---
Author Organization [facility] Address [address] [facility] [address] [place] [address] Care Team Providers Care Tool Crib Clerk Name Role Phone Beau Clement MD Unavailable + [phone] Beau Clement MD Primary Care Provid er Reason for Visit * Reason Onset Date Comments MRI sched 12-06-20 Essence 11/28/2020 Encounter Details Date Type Department Care Team (Late st Contact Info) Description 11/28/2020 Telephone [facility] Family Medicine [address] [address] Beau Clement MD [address] [address] MRI sched 12-06-20 Essence Social History Tobacco Use Types Packs/Day Years [...] on file 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 - 11/29/2020 9:34 AM CDT Per Urszula Sebastian, approved [id number], good 12/06/20 to 03/06/21 for [facility] * Telephone Encounter - Beau Clement MD - 11/28/2020 12:50 PM CDT MRI re-ordered * Telephone Encounter - Lisa Sepulveda - 11/28/2020 12:09 PM CDT The order for this MRI needs to be changed to EXTERNAL for [place]. * Telephone Encounter - Jennifer Huizar - 11/28/2020 9:04 AM CDT MRI L spine [facility] 12-06-20, 145pm Edgard ph [phone] documented in this encounter Plan of Treatment Not on file documented as of this encounter Visit Diagnoses Not on filedocumented in this encounter Care Teams Tool Crib Clerk Relationship Specialty Start Date End Date Beau Clement MD [address] [place], [place] [id number] PCP - Jaz Attributed PCP 03/08/17 Beau Clement MD [address] [place], [place] [address] PCP - General Family Medicine 07/13/18 documented as of this encounter
--- OUTSIDE RECORDS SUMMARY | 2024-03-18 22:42 | XMS_ITS | Encounter Summary ---
Author Organization [facility] Address [address] [facility] [address] [place] [address] Care Team Providers Care It Security Architect Name Role Phone Beau Clement MD Unavailable + [phone] Beau Clement MD Primary Care Provid er Reason for Visit * Reason Comments Follow-up Patient states she i s following up on left ear infection . Encounter Details Date Type Department Care Team (Late st Contact Info) Description 05/07/2021 8:30 AM QUALITY ASSURANCE QA LAB ANALYST Office Visit [facility] Family Medicine [address] [phone] Beau Clement MD [address] [phone] Acute non-recurrent maxillary sinusitis (Primary Dx); Impacted cerumen of left ear Social History Tobacco Use Types Packs/Day Years [...] Legal Sex Female 8:34 AM QUALITY ASSURANCE QA LAB ANALYST Gender Identity Female 08/22/2019 6:09 AM CDT Sexual Orientation Straight 08/22/2019 6: 09 AM CDT documented as of this encounter Last Filed Vital Signs Vital Sign Reading Time Taken Comments Blood Pressure 130/80 05/07/2021 8:13 AM QUALITY ASSURANCE QA LAB ANALYST Pulse 66 05/07/2021 8:13 AM QUALITY ASSURANCE QA LAB ANALYST Temperature 36.1 ??C (96.9 ??F) 05/07/2021 8:13 AM CS T Respiratory Rate 16 05/07/2021 8:13 AM QUALITY ASSURANCE QA LAB ANALYST Oxygen Saturation 97% 05/07/2021 8:13 AM QUALITY ASSURANCE QA LAB ANALYST Inhaled Oxygen Concentration - - Weight 47.1 kg (103 lb 14.4 oz) 05/07/2021 8:13 AM QUALITY ASSURANCE QA LAB ANALYST Height 157.5 cm (5' 2 ) 05/07/2021 8:13 AM QUALITY ASSURANCE QA LAB ANALYST Body Mass Index 19 05/07/2021 8:13 AM QUALITY ASSURANCE QA LAB ANALYST documented in this encounter Ordered Prescriptions Prescription Sig Dispense Quantity Refills Last Filled Start Date End Date amoxicillin-clavul anate (AUGMENTIN) 875-125 mg per tabletIndications: Acute non-recurrent maxillary sinusitis Take 1 tablet by mouth 2 (two) times a day for 10 days 20 tablet 1 05/07/2021 05/17/2021 documented in this encounter Progress Notes * Beau Clement MD - 05/07/2021 8:30 AM CST Subjective/Objective Patient ID: Dottie Bryant is a 75 y.o. female. Chief Complaint Chief Complaint Patient presents with ??? Follow-up Patient states she is following up on left ear infection . HPI The patient complains of a return of her sinus symptoms. She complains of sinus pressure and pain, congestion, and cough. She denies any fever or chills. She denies any lost of smell or taste. I treated her recently with some clarithromycin, which helped, but the not resolve her symptoms entirely. And now that she has finished the course of medication, her symptoms have returned. She also complains of pressure and significantly decreased hearing in her left ear. The patient's past medical history, surgical history, family history and social history were reviewed today. Review of Systems Constitutional: Negative for appetite change, chills, fatigue and fever. HENT: Positive for congestion, ear pain, rhinorrhea, sinus pressure and sinus pain. Negative for sore throat and trouble swallowing. Eyes: Negative for discharge and visual disturbance. Respiratory: Negative for cough, shortness of breath and wheezing. Cardiovascular: Negative for chest pain and palpitations. Gastrointestinal: Negative for abdominal distention and abdominal pain. Endocrine: Negative. Genitourinary: Negative. Musculoskeletal: Negative for arthralgias, joint swelling, myalgias [...] or toxic-appearing. HENT: Head: Normocephalic and atraumatic. Right Ear: Hearing, tympanic membrane, ear canal and external ear normal. Tympanic membrane is not erythematous, retracted or bulging. Tympanic membrane has normal mobility. Left Ear: Hearing, tympanic membrane, ear canal and external ear normal. There is impacted cerumen.Tympanic membrane is not erythematous, retracted or bulging. Tympanic membrane has normal mobility. Nose: Congestion and rhinorrhea present. Right Sinus: Maxillary sinus tenderness present. No frontal sinus tenderness. Left Sinus: Maxillary sinus tenderness present. No frontal sinus tenderness. Mouth/Throat: Lips: [place]. Mouth: Mucous membranes are moist. Tongue: No lesions. Pharynx: Uvula midline. Posterior oropharyngeal erythema (Injected with cobblestoning) present. Eyes: General: Right eye: No discharge. Left eye: No discharge. Extraocular Movements: Extraocular movements intact. Conjunctiva/sclera: Conjunctivae normal. Pupils: Pupils are equal, round, and reactive to light. Cardiovascular: Rate and Rhythm: Normal rate and regular rhythm. Heart sounds: Normal heart sounds. No murmur heard. No friction rub. No gallop. Pulmonary: Effort: Pulmonary effort is normal. No respiratory distress. Breath sounds: Normal breath sounds. No wheezing. Musculoskeletal: General: No deformity. Normal range of motion. Cervical back: Normal range of motion and neck supple. Lymphadenopathy: Cervical: No cervical adenopathy. Skin: General: Skin is warm and dry. Capillary Refill: Capillary refill takes less than 2 seconds. Findings: No rash. Neurological: General: No focal deficit present. Mental Status: She is alert and oriented to person, place, and time. Mental status is at baseline. Motor: No abnormal muscle tone. Coordination: Coordination is intact. Coordination normal. Gait: Gait is intact. Gait normal. Psychiatric: Attention and Perception: Attention normal. Mood and Affect: Mood and affect normal. Speech: Speech normal. Behavior: Behavior normal. Behavior is cooperative. Thought Content: Thought content normal. Judgment: Judgment normal. Assessment/Plan Diagnoses and all orders for this visit: Acute non-recurrent maxillary sinusitis (Primary) - amoxicillin-clavulanate (AUGMENTIN) 875-125 mg per tablet; Take 1 tablet by mouth 2 (two) times aday for 10 days Impacted cerumen of left ear Plan: 1. Sinusitis: OTC Mucinex. OTC nasal saline. Augmentin, twice a day for 10 days, may need to repeat x1 for total course of 20 days. 2. Impacted cerumen: Resolved with the physician using a cerumen spoon, followed by the MA washing the ear out. The patient reports that her ear feels better after the procedure. ITY ASSURANCE QA LAB ANALYST documented in this encounter Plan of Treatment Not on file documented as of this encounter Visit Diagnoses Diagnosis Acute non-recurrent maxillary sinusitis- Primary Impacted cerumen of left ear Impacted cerumen documented in this encounter Discontinued Medications Medication Sig Discontinue Reason Start Date End Da te methylPREDNISolone (MEDROL DOSEPACK) 4 mg DosepackIndications:Chr onic left SI joint pain TAKE 6 TABLETS ON DAY 1 DIRECTED ON PACKAGE AND DECREASE BY 1 TAB EACH DAY FOR A TOTAL OF 6 DAYS 04/16/2021 05/07/2021 documented as of this encounter Care Teams It Security Architect Relationship Specialty Start Date End Date Beau Clement MD [address] [place] [address] PCP - Essence Attributed PCP 03/08/17 Beau Clement MD [address] [place] [address] PCP - General Family Medicine 07/13/18 documented as of this encounter
--- OUTSIDE RECORDS SUMMARY | 2024-03-18 22:42 | XMS_ITS | Encounter Summary ---
Author Organization [facility] Address [address] [facility] [address] [place] [address] Care Team Providers Care Decision Science Analyst Name Role Phone Beau Clement MD Unavailable + [phone] Beau Clement MD Primary Care Provid er Reason for Visit * Reason Comments Medicare Wellness mwv Encounter Details Date Type Department Care Team (Late st Contact Info) Description 11/20/2020 9:00 AM CDT Office Visit [facility] Family Medicine [address] [phone] Beau Clement MD [address] [address] Encounter for Medicare annual wellness exam (Primary Dx); Essential (primary) hypertension; Dyslipidemia; Age-related osteoporosis without current pathological fracture; Lumbar foraminal stenosis; Arthritis, lumbar spine; Chronic right-sided low back pain with right-sided sciatica; Hip pain, left; Impaired fasting glucose; Depression screening; At standard risk for fall [...] on file Legal Sex Female 8:34 AM HOG RINGER Gender Identity Female 08/22/2019 6:09 AM CDT Sexual Orientation Straight 08/22/2019 6: 09 AM CDT documented as of this encounter Last Filed Vital Signs Vital Sign Reading Time Taken Comments Blood Pressure 132/80 11/20/2020 8:25 AM CDT Pulse 63 11/20/2020 8:25 AM CDT Temperature 36.9 ??C (98.4 ??F) 11/20/2020 8:25 AM CD T Respiratory Rate 16 11/20/2020 8:25 AM CDT Oxygen Saturation 95% 11/20/2020 8:25 AM CDT Inhaled Oxygen Concentration - - Weight 50.2 kg (110 lb 11.2 oz) 11/20/2020 8:25 AM CDT Height 157.5 cm (5' 2 ) 11/20/2020 8:25 AM CDT Body Mass Index 20.25 11/20/2020 8:25 AM CDT documented in this encounter Progress Notes * Beau Clement MD - 11/20/2020 9:00 AM CDT Images from the original note were not included. MEDICARE ANNUAL WELLNESS VISIT Dottie Bryant Basic Information In general, would you say your health is: (P) Good Do you have an advance directive, such as a living will or durable power of corporate associate attorney?: (P) No Would you like information regarding Advanced Directiv (Living Will) and/or Durable Power of Acoustic Sensor Operator?: (P) Yes Do you have trouble hearing the television or radio when other do not?: (P) No Do you have to strain or struggle to hear/understand conversations?: (P) No Have you experienced any of the following problems currently or recently? Eating: (P) No Grooming: (P) No Bathing: (P) No Walking: (P) Yes Using the toilet: (P) No Memory problems: (P) No Difficulty speaking: (P) No Have you experienced any of the following problems currently or recently? Laundry and/or housekeeping: (P) No Handling Money: (P) No Shopping: (P) No Food preparation: (P) No Transportation: (P) No Taking and/or getting your own medications: (P) No Chief complaint: Medicare Wellness ([facility] ) HPI: The patient is here for her annual physical. Her main concern today is continuing low back pain that frequently radiates into her left anterior hip. She has a history lumbar stenosis which required injection therapy, and this feels very similar. She had her last injection about 6-10 years ago, she is not entirely sure when. She is sleeping well. Her appetite is good. She denies any bowel or bladder problems. The patient's past medical history, surgical history, family history, and social history were reviewed today. Past Medical History: Diagnosis Date ??? Dyslipidemia ??? Hypertension ??? Osteopenia ??? Vitamin D deficiency Past Surgical History: Procedure Laterality Date ??? SECTION ??? EYE SURGERY 2018 Family History Problem Relation Age of Onset ??? Heart attack Mother ??? Heart attack Father ??? Diabetes Son Social History Socioeconomic History ??? Marital status: Spouse name: Not on file ??? Number of children: Not on file ??? Years of education: Not on file ??? Highest education level: Not on file Occupational History ??? Not on file Tobacco Use ??? Smoking status: Never Smoker ??? Smokeless tobacco: Never Used Substance and Sexual Activity ??? Alcohol use: Not Currently ??? Drug use: Never ??? Sexual activity: Defer Other Topics Concern ??? Not on file Social History Narrative ??? Not on file Social Determinants of Health Financial Resource Strain: ??? Difficulty of Paying Living Expenses: Not on file Food Insecurity: ??? Worried About Running Out of Food in the Last Year: Not on file ??? Ran Out of Food in the Last Year: Not on file Transportation Needs: ??? Lack of Transportation (Medical): Not on file ??? Lack of Transportation (Non-Medical): Not on file Physical Activity: ??? Days of Exercise per Week: Not on file ??? Minutes of Exercise per Session: Not on file Stress: ??? Feeling of Stress : Not on file Social Connections: ??? Frequency of Communication with Friends and Family: Not on file ??? Frequency of Social Gatherings with Friends and Family: Not on file ??? Attends Catholic Services: Not on file ??? Active Member of Clubs or Organizations: Not on file ??? Attends Club or Organization Meetings: Not on file ??? Marital Status: Not on file Intimate Partner Violence: ??? Fear of Current or Ex-Partner: Not on file ??? Emotionally Abused: Not on file ??? Physically Abused: Not on file ??? Sexually Abused: Not on file Allergies: Allergies Allergen Reactions ??? Celecoxib Rash Current Medications: Outpatient Encounter Medications as of 11/20/2020 Medication Sig Dispense Refill ??? aspirin (ASPIRIN LOW DOSE) 81 mg enteric coated tablet 81 mg daily ??? atorvastatin (LIPITOR) 10 mg tablet TAKE ONE TABLET BY MOUTH ONCE DAILY 90 tablet 2 ??? calcium carbonate/vitamin D3 (CALCIUM 500 + D ORAL) 2 (two) times a day ??? metoprolol XL (TOPROL-XL) 25 mg extended release tablet TAKE ONE TABLET BY MOUTH ONCE DAILY 90 tablet 2 ??? multivitamin capsule Take 1 capsule by mouth daily ??? traMADoL (ULTRAM) 50 mg tablet Take 1 tablet (50 mg total) by mouth every 8 (eight) hours as needed for pain 21 tablet 0 ??? [DISCONTINUED] clarithromycin (BIAXIN) 500 mg tablet TAKE 1 TABLET BY MOUTH TWICE A DAY FOR 10 DAYS 20 tablet 1 No facility-administered encounter medications on file as of 11/20/2020. Review of Systems Constitutional: Negative for activity [...] The patient is not nervous/anxious. Vitals: Vitals: 11/20/20 0825 BP: 132/80 BP Location: Left arm Patient Position: Sitting Pulse: 63 Resp: 16 Temp: 36.9 ??C (98.4 ??F) TempSrc: Temporal SpO2: 95% Weight: 50.2 kg (110 lb 11.2 oz) Height: 157.5 cm (5' 2 ) Physical Exam Vitals and nursing note reviewed. Constitutional: General: She is awake. She is not in acute distress. Appearance: Normal appearance. She is well-developed, well-groomed and normal weight. HENT: Head: Normocephalic and atraumatic. Jaw: There [...] gallop. Pulmonary: Effort: Pulmonary effort is normal. Breath sounds: Normal breath sounds and air [...] and oriented to person, place, and time. Cranial Nerves: Cranial nerves are intact. No cranial nerve deficit. Sensory: Sensation is [...] Interest or Pleasure in Doing Things: (P) Not at all Feeling Down, Depressed, or Hopeless: (P) Not at all PHQ-2 Total Score (If total score is 3 or more points, staff should administer the PHQ-9): (P) 0 Over the past 2 weeks, how often have you been bothered by any of the following problems? Little Interest or Pleasure in Doing Things: (P) Not at all Feeling Down, Depressed, or Hopeless: (P) Not at all PHQ-2 Total Score (If total score is 3 or more points, staff should administer the PHQ-9): (P) 0 Anxiety screen: Generalized Anxiety Disorder 7-item (RYLIE-7) [...] difficult at all Audio/Visual screen: (only for [place] to Medicare visit) Normal Audio Screen: Is the patient having any problems with hearing? No Diet: healthy Physical Activities: >3 times a week Functional Capacity Patient is able to perform the following: ambulation, bathing and hygiene, feeding, continence, grooming, toileting and dressing Up and Go Test: Patient [...] or family, or review of medical records? No Advanced Directive Durable Power of Acoustic Sensor Operator: No Living Will: No Care Team Providers: Patient Care Team: Beau Clement MD as PCP - General (Family Medicine) Beau Clement MD as PCP - Essence Attributed PCP Primary Pharmacy/DME suppliers: [id number] [place], [place] - [address] [facility] [id number] Counseling and Referral of Preventative Services: Please see patient instructions section for recommendations for appropriate screening and monitoring guidelines. Health Maintenance: Health Maintenance Topics with due status: Overdue Topic Date Due Osteoporosis Screening-Bone Density Scan 07/21/2019 Breast Cancer Screening-Mammogram 11/24/2019 Health Maintenance Topics with due status: Not Due Topic Last Completion Date Colon Cancer Screening-Colonoscopy 06/17/2011 DTaP/Tdap/Td Vaccine 05/06/2018 Fall Risk Assessment 11/20/2020 Depression Screening-PHQ 11/20/2020 Regular Well Visit/Exam 11/20/2020 Health Maintenance Topics with due status: Completed Topic Last Completion Date Hepatitis C Screening 06/24/2015 Zoster Vaccines 11/03/2017 Covid-19 Vaccine 05/28/2020 Pneumococcal (PCV13 & PPSV23) 65+ yrs 10/01/2020 Influenza Vaccine 11/16/2020 Patient here for annual Medicare wellness visit [...] Encounter for Medicare annual wellness exam (Primary) Essential (primary) hypertension Dyslipidemia Age-related osteoporosis without current pathological fracture Impaired fasting glucose Lumbar foraminal stenosis Arthritis, lumbar spine Plan: 1. Annual exam: Continue regular exercise. Continue healthy diet. Maintain a healthy weight. Labs reviewed with patient. Good health and prevention strategies discussed. 2. Hypertension: Continue low-sodium diet. Continue regular exercise. Continue Toprol XL. Labs reviewed with patient. 3. Dyslipidemia: Continue healthy diet. Continue regular exercise. Maintain healthy weight. Continue atorvastatin. 4. Osteoporosis: Doing well on calcium and vitamin-D supplementation. Continue regular exercise. 5. Lumbar stenosis and lumbar arthritis: This is reached the point where to severely limiting her activities, and it is likely time to talk to pain management again. 6. Low back pain: Related to lumbar stenosis and arthritis. Pain management as above. Continue tramadol for breakthrough pain. 7. Left hip pain: Suspect related to the lumbar stenosis. Treatment as above. 8. Impaired fasting glucose: Healthy diet. Maintain healthy weight. Exercise as tolerated. Continue to monitor. 9. Depression screening: PHQ 2 score of 2 and PHQ 9 score of 3. 10. Fall risk: Patient remains at standard risk of falling. Fall risk mitigation and reduction were discussed. 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 Hip pain, left Pain in joint, pelvic region and thigh Impaired fasting glucose Depression screening At standard risk for fall documented in this encounter Discontinued Medications Medication Sig Discontinue Reason Start Date End Da te clarithromycin (BIAXIN) 500 mg tabletIndications:Cough TAKE 1 TABLET BY MOUTH TWICE A DAY FOR 10 DAYS 11/01/2020 11/20/2020 documented as of this encounter Care Teams Decision Science Analyst Relationship Specialty Start Date End Date Beau Clement MD [facility] [address] [place] [address] PCP - Essence Attributed PCP 03/08/17 Beau Clement MD [address] [place] [address] PCP - General Family Medicine 07/13/18 documented as of this encounter
--- OUTSIDE RECORDS SUMMARY | 2024-03-18 22:42 | XMS_ITS | Encounter Summary ---
Author Organization [facility] Address [address] [facility] [address] [place] [address] Care Team Providers Care Sr. Manager Marketing Name Role Phone Beau Clement MD Unavailable +- [phone] Beau Clement MD Primary Care Provid er Encounter Details Date Type Department Care Team (Late st Contact Info) Description 10/29/2021 Telephone [facility] Family Medicine [address] [phone] Beau Clement MD [address] [address] Social History Tobacco Use Types Packs/Day Years Used Date Smoking Tobacco: Never Smokeless Tobacco: Never Alcohol Use Standard Drinks/Week Comments Not Currently 0 (1 standard drink = 0.6 oz pur e alcohol) AUDIT-C Answer Date Recorded Q1: How often do you have a drink containing alc ohol? Monthly or less 10/31/2021 Q2: How many drinks containi ng alcohol do you have on a typical day when you are drinking? 1 or 2 10/31/2021 Q3: How often do you have si x or more drinks on one occasion? Never 10/31/2021 PHQ-2 Answer Date Recorded PHQ-2 Total Score (If total score is 3 or more points, staff should administer the PHQ-9) 0 10/31/2021 Comments No Sex and Gender Information Value Date Recorded Sex Assigned at Not on file Legal Sex Female 8:34 AM BUDGET CONTROLLER Gender Identity Female 08/22/2019 6:09 AM CDT Sexual Orientation Straight 08/22/2019 6: 09 AM CDT documented as of this encounter Miscellaneous Notes * Telephone Encounter - Chiquita Munoz LPN - 10/29/2021 8:57 AM CDT [place] pt's aware. * Telephone Encounter - Beau Clement MD - 10/29/2021 8:52 AM CDT That is fine * Telephone Encounter - Chiquita Munoz LPN - 10/29/2021 8:26 AM CDT Patient's [place]gard has Covid and requested we change his 's appointment 10/31/21 to a video visit. Patient's wanted you to be aware pt's 's mother had similar issues at the same age prior to her . Is it ok they keep appointment as video visit to discuss options? documented in this encounter Plan of Treatment Not on file documented as of this encounter Visit Diagnoses Not on filedocumented in this encounter Care Teams Sr. Manager Marketing Relationship Specialty Start Date End Date Beau Clement MD [address] [place] [address] PCP - Essence Attributed PCP 03/08/17 Beau Clement MD [address] [place] [address] PCP - General Family Medicine 07/13/18 documented as of this encounter
--- OUTSIDE RECORDS SUMMARY | 2024-03-18 22:42 | XMS_ITS | Encounter Summary ---
Author Organization [facility] Address [address] [facility] [address] [place] [address] Care Team Providers Care Stitcher Standard Machine Name Role Phone Beau Clement MD Unavailable [phone] Beau Clement MD Primary Care Provid er Reason for Referral * MRI/CAT/PET Scan (Routine) - Closed Specialty Diagnoses / Procedures Referred By Contac t Referred To Contact Diagnoses Lumbar foraminal stenosis Chronic right-sided low back pain with right-sided sciatica Hip pain, left Procedures MRI Lumbar Spine WO Contrast Beau Clement MD [address] [place] [address] Phone: tel: fax: [facility] [address] [place] [address] Phone: tel: fax: Referral ID Status Reason Start Date Expiration Date Visits Re quested Visits Authorized [id number] Closed 12/06/2020 03/06/2021 1 1 Encounter Details Date Type Department Care Team (Late st Contact Info) Description 11/28/2020 Orders Only [facility] Family Medicine [address] [phone] Beau Clement MD [address] [place], [place] [id number] Lumbar foraminal stenosis (Primary Dx); Chronic right-sided low back pain with right-sided [...] on file Legal Sex Female 8:34 AM GROUP COUNSELOR Gender Identity Female 08/22/2019 6:09 AM CDT Sexual Orientation Straight 08/22/2019 6: 09 AM CDT documented as of this encounter Progress Notes * Beau Clement MD - 11/28/2020 12:49 PM CDT MRI L/S for [facility] documented in this encounter Plan of Treatment Scheduled Orders Name Type Priority Associated Diagnoses Orde r Schedule MRI Lumbar Spine WO Contrast Imaging Schedule Routine, Read Routine (OP Routine) Lumbar foraminal stenosis Chronic right-sided low back pain with right-sided sciatica Hip pain, left Expected: 11/28/2020, Expires: 11/28/2021 documented as of this encounter Visit Diagnoses Diagnosis Lumbar foraminal stenosis- Primary Chronic right-sided low back pain with right-sided sciatica Hip pain, left Pain in joint, pelvic region and thigh documented in this encounter Care Teams Stitcher Standard Machine Relationship Specialty Start Date End Date Beau Clement MD [address] [place] [address] PCP - Essence Attributed PCP 03/08/17 Beau Clement MD [address] [place] [address] PCP - General Family Medicine 07/13/18 documented as of this encounter
--- OUTSIDE RECORDS SUMMARY | 2024-03-18 22:42 | XMS_ITS | Encounter Summary ---
Author Organization [facility] Address [address] [facility] [address] [place] [address] Care Team Providers Care Professor Of Oceanography Name Role Phone Beau Clement MD Unavailable + [phone] Beau Clement MD Primary Care Provid er Encounter Details Date Type Department Care Team (Late st Contact Info) Description 04/16/[address] [facility] Family Medicine [address] [address] Beau Clement MD [address] [address] Social History Tobacco Use Types [...] Refills Last Filled Start Date End Date clarithromycin (BIAXIN) 500 mg tablet Take 1 tablet (500 mg total) by mouth 2 (two) times a day for 10 days Hold Atorvastatin while on this medication. 20 tablet 04/16/2021 2 documented in this encounter Progress Notes * Beau Clement MD - 04/16/2021 2:15 PM CST Clarithromycin Rx sent CENTER SOLUTIONS ARCHITECT documented in this encounter Plan of Treatment Not on file documented as of this encounter Visit Diagnoses Not on filedocumented in this encounter Care Teams Professor Of Oceanography Relationship Specialty Start Date End Date Beau Clement MD [address] [place] [address] PCP - Essence Attributed PCP 03/08/17 Beau Clement MD [address] [place] [address] PCP - General Family Medicine 07/13/18 documented as of this encounter
--- OUTSIDE RECORDS SUMMARY | 2024-03-18 22:42 | XMS_ITS | Encounter Summary ---
Author Organization [facility] Address [address] [facility] [address] [place] [address] Care Team Providers Care Master Brewer Name Role Phone Beau Clement MD Unavailable + [phone] Beau Clement MD Primary Care Provid er Encounter Details Date Type Department Care Team (Late st Contact Info) Description 11/08/[address] 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 Gender Identity Female 08/22/2019 6:09 AM CDT Sexual Orientation Straight 08/22/2019 6: 09 AM CDT documented as of this encounter Ordered Prescriptions Prescription Sig Dispense Quantity Refills Last Filled Start Date End Date traMADoL (ULTRAM) 50 mg tablet Take 1 tablet (50 mg total) by mouth every 8 (eight) hours as needed for pain 21 tablet 11/08/2020 11/15/2020 documented in this encounter Progress Notes * Beau Clement MD - 11/08/2020 4:50 PM CDT Tramadol rx sent documented in this encounter Plan of Treatment Not on file documented as of this encounter Visit Diagnoses Not on filedocumented in this encounter Care Teams Master Brewer Relationship Specialty Start Date End Date Beau Clement MD [address] [place] [address] PCP - Essence Attributed PCP 03/08/17 Beau Clement MD [address] [place] [address] PCP - General Family Medicine 07/13/18 documented as of this encounter
--- OUTSIDE RECORDS SUMMARY | 2024-03-18 22:42 | XMS_ITS | Encounter Summary ---
Author Organization [facility] Address [address] [facility] [address] [place] [address] Care Team Providers Care Java Programming Professor Name Role Phone Beau Clement MD Unavailable + [phone] Beau Clement MD Primary Care Provid er Encounter Details Date Type Department Care Team (Late st Contact Info) Description 11/27/2020 Orders Only [facility] Family Medicine [address] [phone] Beau Clement MD [address] [address] Hip pain, left (Primary Dx); Bilateral leg pain; Weakness of both lower extremities; Chronic bilateral low back pain with bilateral sciatica; Foraminal stenosis of lumbar region Social History Tobacco Use Types Packs/Day Years [...] on file 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 Gender Identity Female 08/22/2019 6:09 AM CDT Sexual Orientation Straight 08/22/2019 6: 09 AM CDT documented as of this encounter Progress Notes * Beau Clement MD - 11/27/2020 12:43 PM CDT MRI/pain management ordered documented in this encounter Plan of Treatment Not on file documented as of this encounter Visit Diagnoses Diagnosis Hip pain, left- Primary Pain in joint, pelvic region and thigh Bilateral leg pain Pain in soft tissues of limb Weakness of both lower extremities 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
--- OUTSIDE RECORDS SUMMARY | 2024-03-18 22:42 | XMS_ITS | Encounter Summary ---
Author Organization [facility] Address [address] [facility] [address] [place] [address] Care Team Providers Care Comptometer Operator Name Role Phone Beau Clement MD Unavailable +- [phone] Beau Clement MD Primary Care Provid er Reason for Visit * Reason Comments Memory Loss Patient arrives to [facility] Memory loss x 1 year progressively getting worse. Reports currently taking Aricept and feels it is not successful. 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 Gender Identity Female 08/22/2019 6:09 AM CDT Sexual Orientation Straight 08/22/2019 6: 09 AM CDT documented as of this encounter Last Filed Vital Signs Vital Sign Reading Time Taken Comments Blood Pressure 148/60 08/22/2021 9:12 AM CDT Pulse 79 08/22/2021 9:12 AM CDT Temperature 36.6 ??C (97.8 ??F) 08/22/2021 9:12 AM CD T Respiratory Rate 16 08/22/2021 9:12 AM CDT Oxygen Saturation 99% 08/22/2021 9:12 AM CDT Inhaled Oxygen Concentration - - Weight 47.6 kg (105 lb) 08/22/2021 9:12 AM CDT Height 157.5 cm (5' 2 ) 08/22/2021 9:12 AM CDT Body Mass Index 19.2 08/22/2021 9:12 AM CDT documented in this encounter Progress Notes * Beau Clement MD - 08/22/2021 9:15 AM CDT Subjective/Objective Patient ID: Dottie Bryant is a 76 y.o. female. Chief Complaint Chief Complaint Patient presents with ??? Memory Loss Patient arrives to discuss Memory loss x 1 year progressively getting worse. Reports currently taking Aricept and feels it is not successful. HPI The patient has a 1 year history of worsening memory, particularly short-term memory. She has been tentatively diagnosed with Alzheimer's dementia and started on Aricept, which has not really made any difference. There been no behavioral issues, and no evidence of any sundowning. The is concerned because he feels her memory is getting worse to the point were important things are getting lost and misplaced around the house. Valentina herself, does not see much of a problem and doubt plays the issue. Otherwise, she is doing well. She is sleeping well. Her appetite is [...] hematuria and urgency. Musculoskeletal: Negative for arthralgias, back pain, joint swelling and myalgias. Skin: Negative for rash. Neurological: Negative for dizziness, weakness, light-headedness and headaches. Psychiatric/Behavioral: Negative for decreased concentration and sleep disturbance. The patient is not nervous/anxious. Memory issues, see HPI Physical Exam Vitals and nursing note reviewed. [...] Thought content normal. Cognition and Memory: Cognition normal. She exhibits impaired recent memory. Judgment: Judgment normal. Assessment/Plan Diagnoses and all orders for this visit: Memory impairment (Primary) - MRI Brain and Volumetric W WO Contrast; Future Late onset Alzheimer's dementia without behavioral disturbance (HCC) - MRI Brain and Volumetric W WO Contrast; Future Plan: 1. Memory impairment/Alzheimer's: Discussed the possible diagnoses, prognoses, and treatment options with the patient and her . Continue the Aricept for now. Check a volumetric brain MRI. Will likely refer to Neurology or Geriatrics once I get the MRI back. documented in this encounter Plan of Treatment Not on file documented as of this encounter Visit Diagnoses Diagnosis Memory impairment- Primary Memory loss Late onset Alzheimer's dementia without behavioral disturbance (HCC) documented in this encounter Care Teams Comptometer Operator Relationship Specialty Start Date End Date Beau Clemnet MD [address] [place] [address] PCP - Essence Attributed PCP 03/08/17 Beau Clement MD [address] [place] [address] PCP - General Family Medicine 07/13/18 documented as of this encounter
--- OUTSIDE RECORDS SUMMARY | 2024-03-18 22:42 | XMS_ITS | Encounter Summary ---
Author Organization [facility] Address [address] [facility] [address] [place] [address] Care Team Providers Care Software Engineer Sales Name Role Phone Beau Clement MD Unavailable +- [phone] Beau Clement MD Primary Care Provid er Reason for Visit * Reason Onset Date Comments referral/MRI 11/22/2020 Encounter Details Date Type Department Care Team (Late st Contact Info) Description 11/22/2020 Telephone [facility] Family Medicine [address] [phone] Beau Clement MD [address] [address] referral/MRI Social History Tobacco Use Types Packs/Day Years [...] file 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 Pt will need an MRI done prior to seeing him. They request this be placed so they can try to get an appt soon. documented in this encounter Plan of Treatment Not on file documented as of this encounter Visit Diagnoses Not on filedocumented in this encounter Care Teams Software Engineer Sales Relationship Specialty Start Date End Date Beau Clement MD [address] [place] [address] PCP - Essence Attributed PCP 03/08/17 Beau Clement MD [address] [place] [address] PCP - General Family Medicine 07/13/18 documented as of this encounter
--- OUTSIDE RECORDS SUMMARY | 2024-03-18 22:42 | XMS_ITS | Encounter Summary ---
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 Current interpretive data was last revised 2018. Testing performed by: [address] [address] Creatinine Ur 64.1 mg/dL [facility] Comment: Interpretive Data No reference range established. Current interpretive data was last revised 2018. Testing performed by: [address] [address] Albumin Creatinine Ratio, Ur <19 1 - 29 mg/g [facility] Comment:Testing performed by : [address] [address] Urine 11/17/2021 8:13 AM CDT 11/17/2021 9:15 AM CDT us Beau Clement MD LAB URINE ORDERABLES Final Result [facility] [address] [facility] [place] [address] * (ABNORMAL) CBC with auto differential (11/17/2021 8:08 AM CDT) WBC 6.9 3.8 - 9.9 K/cumm [facility] Comment:Testing performed by : [address] [address] Hgb 12.3 11.9 - 15.5 g/dL [facility] Comment:Testing performed by : [address] [address] Hct 37.7 35.6 - 45.5 % [facility] Comment:Testing performed by : [address] [address] Plt 331 150 - 400 K/cumm [facility] Comment:Testing performed by : [address] [address] MPV 8.6(L) 9.1 - 12.3 fL [facility] Comment:Testing performed by : [address], [address] RBC 3.89(L) 3.90 - 5.20 M/cumm [facility] Comment:Testing performed by : [address] [address] MCV 96.9(H) 81.3 - 96.4 fL [facility] Comment:Testing performed by : [address] [address] MCH 31.6 27.1 - 33.3 pg [facility] Comment:Testing performed by : [address] [address] MCHC 32.6 32.3 - 35.7 g/dL [facility] Comment:Testing performed by : [address], [address] RDW CV 13.6 11.1 - 14.9 % [facility] Comment:Testing performed by : [address] [address] RDW SD 48.3(H) 35.7 - 48.1 fL [facility] Comment:Testing performed by : [address] [address] NRBC abs 0.00 0.00 - 0.01 K/cumm [facility] Comment:Testing performed by : [address] [address] Blood 11/17/2021 8:08 AM CDT 11/17/2021 8:28 AM CDT us Beau Clement MD LAB BLOOD ORDERABLES Final Result [facility] [address] [facility] Department [place] [address] * Comprehensive metabolic panel (11/17/2021 8:08 AM CDT) Sodium 140 135 - 145 mmol/L [facility] Comment:Testing performed by : [address] [address] Potassium, pl 4.6 3.3 - 4.9 mmol/L [facility] Comment:Testing performed by : [address] [address] Chloride 102 97 - 110 mmol/L [facility] Comment:Testing performed by : [address] [address] CO2 28 22 - 32 mmol/L [facility] Comment:Testing performed by : [address] [address] Anion gap 10 2 - 15 mmol/L [facility] Comment:Testing performed by : [address] [address] BUN 15 8 - 25 mg/dL [facility] Comment:Testing performed by : [address] [address] Creatinine 0.90 0.60 - 1.10 mg/dL [facility] Comment:Testing performed by : [address] [address] Glucose 106 70 - 199 mg/dL [facility] Comment: Interpretive [...] was last revised 2017. Testing performed by: [facility], [address] [place] [address]., [address] Calcium 9.9 8.5 - 10.3 mg/dL [facility] Comment:Testing performed by : [address] [address] Bilirubin, total 0.9 0.1 - 1.2 mg/dL [facility] Comment:Testing performed by : [address] [address] Protein, pl 7.1 6.5 - 8.5 g/dL [facility] Comment:Testing performed by : [address], [address] Albumin 4.2 3.5 - 5.0 g/dL [facility] Comment:Testing performed by : [address] [address] Alk phos 53 40 - 130 Units/L [facility] Comment:Testing performed by : [address] [address] ALT 15 7 - 45 Units/L [facility] Comment:Testing performed by : [address] [address] AST 25 10 - 45 Units/L [facility] Comment:Testing performed by : [address] [address] Blood 11/17/2021 8:08 AM CDT 11/17/2021 8:28 AM CDT Beau Clement MD LAB BLOOD ORDERABLES Final Result [facility] [address] [facility] [place] [address] * (ABNORMAL) Lipid panel (11/17/2021 [...] last revised on 2017. Testing performed by: [address] [address] Triglycerides 87 <=149 mg/dL [facility] Comment: Interpretive Data [...] last revised on 2017. Testing performed by: [address] [address] HDL 102 >=40 mg/dL [facility] Comment: Interpretive Data [...] last revised on 2017. Testing performed by: [address] [address] LDL, calculated 124 <=129 mg/dL [facility] Comment: Interpretive Data Ages < [...] last revised on 2017. Testing performed by: [address] [address] Non-HDL Cholesterol 141 mg/dL [facility] Comment: Interpretive Data Ages < [...] last revised on 2017. Testing performed by: [facility], [address] [place] [address]., [address] Chol/HDL ratio 2 [facility] Comment:Testing performed by : [facility], [address] [place] [address]., [address] Blood 11/17/2021 8:08 AM CDT 11/17/2021 8:28 AM CDT us Beau Clement MD LAB BLOOD ORDERABLES Final Result [facility] [address] [facility] Department [place] [address] documented in this encounter Visit Diagnoses Diagnosis Essential (primary) hypertension- Primary Unspecified essential hypertension Dyslipidemia Other and unspecified hyperlipidemia documented in this encounter Care Teams Presentation Designer Relationship Specialty Start Date End Date Beau Clement MD [address] [place] [address] PCP - Essence Attributed PCP 03/08/17 Beau Clement MD [address] [place], [place] [address] PCP - General Family Medicine 07/13/18 documented as of this encounter
--- OUTSIDE RECORDS SUMMARY | 2024-03-18 22:42 | XMS_ITS | Encounter Summary ---
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 * Telephone Encounter - Deborah Hamilton - 12/10/2020 10:20 AM CDT Kay from Dr. Hellen Navarro is requesting an Essence referral sent to their office so as they canschedule pt. For pain management for hip and leg pain Dr. Hellen Navarro NPI # [id number] P. [phone] documented in this encounter Plan of Treatment Not on file documented as of this encounter Visit Diagnoses Not on filedocumented in this encounter Care Teams Packaging Mechanic Relationship Specialty Start Date End Date Beau Clement MD [address] [place] [address] PCP - Essence Attributed PCP 03/08/17 Beau Clement MD [address] [place] [address] PCP - General Family Medicine 07/13/18 documented as of this encounter
--- OUTSIDE RECORDS SUMMARY | 2024-03-18 22:42 | XMS_ITS | Encounter Summary ---
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 Patient has been extremely forgetful. Not eatingand is experiencing weight loss. Patient saw [facility] and stated they recommended her beevaluated for alzheimer's d/t the results of eye exam. Appointment scheduled 10/31/21 * Telephone Encounter - Anabelle Cristobal LPN - 10/20/2021 2:41 PM CDT LM, awaiting return call * Telephone Encounter - Beau Clement MD - 10/20/2021 2:33 PM CDT The MRI shows age-related changes. It also shows some atherosclerosis of the arteries in the brain and evidence of several small older strokes. No recent strokes or similar findings were present. No tumors, no bleeds. The treatment at this point is being aggressive with cholesterol and blood pressure. * Telephone Encounter - Deborah Hamilton - 10/20/2021 9:42 AM CDT Pt calling to find out results of recent MRI Brain, pls advise at [phone] documented in this encounter Plan of Treatment Not on file documented as of this encounter Visit Diagnoses Not on filedocumented in this encounter Care Teams Aircraft Navigator Relationship Specialty Start Date End Date Beau Clement MD [facility] [address] [place] [address] PCP - Essence Attributed PCP 03/08/17 Beau Clement MD [facility] [address] [place] [address] PCP - General Family Medicine 07/13/18 documented as of this encounter
--- OUTSIDE RECORDS SUMMARY | 2024-03-18 22:42 | XMS_ITS | Encounter Summary ---
Author Organization [facility] Address [address] [facility] [address] [place] [address] Care Team Providers Care Drive Thru Order Taker Name Role Phone Beau Clement MD Unavailable + [phone] Beau Clement MD Primary Care Provid er Reason for Visit * Reason Comments Dizziness Patient [facility]. Patient reports symptoms started 2 months ago. 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 Gender Identity Female 08/22/2019 6:09 AM CDT Sexual Orientation Straight 08/22/2019 6: 09 AM CDT documented as of this encounter Last Filed Vital Signs Vital Sign Reading Time Taken Comments Blood Pressure 110/78 12/13/2020 1:11 PM CDT Pulse 57 12/13/2020 1:11 PM CDT Temperature 36.9 ??C (98.5 ??F) 12/13/2020 1:11 PM CD T Respiratory Rate 16 12/13/2020 1:11 PM CDT Oxygen Saturation 96% 12/13/2020 1:11 PM CDT Inhaled Oxygen Concentration - - Weight 49.6 kg (109 lb 6.4 oz) 12/13/2020 1:11 P M CDT Height 157.5 cm (5' 2 ) 12/13/2020 1:11 PM CDT Body Mass Index 20.01 12/13/2020 1:11 PM CDT documented in this encounter Ordered Prescriptions Prescription Sig Dispense Quantity Refills Last Filled Start Date End Date ibandronate (BONIVA) 150 mg tabletIndications: Osteopenia of both hips Take 1 tablet (150 mg total) by mouth every 30 (thirty) days Take in AM with glass of water prior to food, don't lie down for 30 minutes. 3 tablet 3 12/13/2020 10/06/2021 documented in this encounter Progress Notes * Beau Clement MD - 12/13/2020 1:30 PM CDT Subjective/Objective Patient ID: Dottie Bryant is a 75 y.o. female. Chief Complaint Chief Complaint Patient presents with ??? Dizziness Patient presents today for dizzy spells. Patient reports symptoms started 2 months ago. HPI The patient complains of dizziness which she describes as mostly lightheadedness the slight sensation of motion, but not vertigo per se. This is been happening on and off for the past several weeks if not months. She has noted that always seems to be associated with taking her tramadol pain medication. She denies any visual changes. She denies any URI or cold symptoms. She denies any headaches. She continues to have low back pain and particular hip pain, that is significantly cramping her activity levels. She has an appointment with a pain management physician, including injection therapy, for this coming Wednesday. The patient's past medical history, surgical history, [...] frequency, hematuria and urgency. Musculoskeletal: Positive for arthralgias and back pain. Negative for joint swelling and myalgias. Skin: Negative for rash. Neurological: Positive for dizziness. Negative for weakness, light-headedness and headaches. Psychiatric/Behavioral: Negative for [...] Diagnoses and all orders for this visit: Dizziness (Primary) Hip pain, left Lumbar foraminal stenosis Osteopenia of both hips - ibandronate (BONIVA) 150 mg tablet; Take 1 tablet (150 mg total) by mouth every 30 (thirty) days Take in AM with glass of water prior to food, don't lie down for 30 minutes. Plan: 1. Dizziness: Most likely a side effect to the tramadol. We are going to stop the tramadol for pain relief and try plain acetaminophen, at 1000 mg 3 times aday. She is still having pain despite this, and despite pain management intervention, then will consider some Tylenol 3. 2. Lumbar foraminal stenosis and left hip pain: Significant arthritis to lower back and modest arthritis of the left hip. Pain management visit in 2 days. Stop the tramadol, as noted above, and switch to acetaminophen. Will continue to monitor. 3. Osteopenia: Reviewed the most recent DEXA scan with the patient and her . It shows significant osteopenia, almost osteoporosis, in the femoral neck and the hip. Lumbar spine is fine. I discussed the diagnosis, prognosis, and treatment options with the patient. Continue vitamin-D and calcium supplementation. Ensure adequate exercise. Start Boniva monthly. The risks, benefits, potential adverse effects of the medication were discussed. documented in this encounter Plan of Treatment Not on file documented as of this encounter Visit Diagnoses Diagnosis Dizziness- Primary Dizziness and giddiness Hip pain, left Pain in joint, pelvic region and thigh Lumbar foraminal stenosis Osteopenia of both hips documented in this encounter Historical Medications * This list may reflect changes made after this encounter. calcium carbonate-vitamin D3 250-125 mg-unit tabletIndications :Osteopenia of both hips Take 1 tablet by mouth daily 02/24/2021 added in this encounter Care Teams Drive Thru Order Taker Relationship Specialty Start Date End Date Beau Clement MD [address] [place] [address] PCP - Essence Attributed PCP 03/08/17 Beau Clement MD [address] [place] [address] PCP - General Family Medicine 07/13/18 documented as of this encounter
--- OUTSIDE RECORDS SUMMARY | 2024-03-18 22:42 | XMS_ITS | Encounter Summary ---
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 (Per Anabelle) They took the message down regarding Valentina's MRI of the Brain stating he does want the Volumetric part. documented in this encounter Plan of Treatment Not on file documented as of this encounter Visit Diagnoses Not on filedocumented in this encounter Care Teams Family Court Justice Relationship Specialty Start Date End Date Beau Clement MD [address] [place] [address] PCP - Essence Attributed PCP 03/08/17 Beau Clement MD [address] [place] [address] PCP - General Family Medicine 07/13/18 documented as of this encounter
--- OUTSIDE RECORDS SUMMARY | 2024-03-18 22:42 | XMS_ITS | Encounter Summary ---
Author Organization [facility] Address [address] [place] [address] Care Team Providers Care Explosives Mixer Operator Name Role Phone Beau Clement MD Unavailable +- [phone] Beau Clement MD Primary Care Provid er Reason for Referral * Diagnostic Imaging (Routine) - Closed Specialty Diagnoses / Procedures Referred By Contac t Referred To Contact Diagnoses Age-related osteoporosis without current pathological fracture Procedures Dexa Axial Skeleton Bone Density 1 or 2 Site Beau Clement MD [address] [place] [address] Phone: tel: fax: [facility] Referral ID Status Reason Start Date Expiration Date Visits Re quested Visits Authorized [id number] Closed 09/04/2020 10/04/2021 1 1 Reason for Visit * Diagnostic Imaging (Routine) - Closed Specialty Diagnoses / Procedures Referred By Contac t Referred To Contact Diagnoses Age-related osteoporosis without current pathological fracture Procedures Dexa Axial Skeleton Bone Density 1 or 2 Site Beau Clement MD [address] [place] [address] Phone: tel: fax: [facility] Referral ID Status Reason Start Date Expiration Date Visits Re quested Visits Authorized [id number] Closed 09/04/2020 10/04/2021 1 1 Encounter Details Date Type Department Care Team (Latest Contact Info) Description 12/06/2020 9:28 AM CDT Hospital Encounter [facility] Medical Office Bldg [facility] [address] [address] Age-related osteoporosis without current pathological fracture Discharge Disposition: Discharge to home or self [...] on file 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 DEXA AXIAL SKELETON BONE DENSITY 1 OR MORE SITES REASON FOR STUDY: ??Post-menopausal female, screening for osteoporosis. Junior Art Director/Model: ?? [employer] Horizon A (S/N [id number]) CLINICAL INFORMATION: ??Current height: ??62 inches ? Maximum height: 63 inches ? Weight: 108 pounds Risk factors: None COMPARISON: ?? 07/20/2017 FINDINGS: AP LUMBAR SPINE L1-L4: Total BMD is ??1.153 g/cm2 T-score is 1.0 Most recent prior BMD was 1.215 g/cm2 There has been a 5.1% decrease in BMD which is statistically significant. LEFT HIP: Current Total BMD is 0.679 g/cm2 T-score is -2.2 Most recent prior Total BMD was 0.688 g/cm2 There has been a 1.2% decrease in BMD which is not statistically significant. Current femoral neck BMD is 0.593 g/cm2 T-score is -2.3 IMPRESSION: ?? 1. Low bone mass by WHO criteria. 2. The WHO fracture risk assessment tool (FRAX) indicates that the 10 year risk for a major osteoporotic fracture is 12% and the 10 year risk for a hip fracture is 3.6%. The FRAX tool has not been validated in patients currently or previously treated with pharmacotherapy for osteoporosis. ??In such patients, clinical judgement must be exercised in interpreting FRAX scores as the fracture risk may be overestimated. ?? REFERENCE: ??Bone mineral density: ? Normal (T-score above or [...] including treatment recommendations, please refer to the 2013 ISCD Official Positions (http://www.iscd.org) and the NOF's Clinician's Guide to Prevention and Treatment of Osteoporosis (http://www.nof.org/professionals/clinical-guidelines) THIS IS AN ELECTRONICALLY VERIFIED FINAL REPORT 12/06/2020 11:59 AM - Electronically signed by Felipe Barker M.D. AB: D: ??12/06/2020 11:59 AM T: ??12/06/2020 11:59 AM Report ID: [id number] Reading Location: ??[id number] Procedure Note Felipe Barker MD - 12/06/2020 EXAM DESCRIPTION: DEXA AXIAL SKELETON BONE DENSITY 1 OR MORE SITES REASON FOR STUDY: Post-menopausal female, screening for osteoporosis. Junior Art Director/Model: Animated Speech A (S/N [id number]) CLINICAL INFORMATION: Current height: 62 inches Maximum height: 63 inches Weight: 108 pounds Risk factors: None COMPARISON: 07/20/2017 FINDINGS: AP LUMBAR SPINE L1-L4: Total BMD is 1.153 g/cm2 T-score is 1.0 Most recent prior BMD was 1.215 g/cm2 There has been a 5.1% decrease in BMD which is statisticallysignificant. LEFT HIP: Current Total BMD is 0.679 g/cm2 T-score is -2.2 Most recent prior Total BMD was 0.688 g/cm2 There has been a 1.2% decrease in BMD which is not statisticallysignificant. Current femoral neck BMD is 0.593 g/cm2 T-score is -2.3 IMPRESSION: 1. Low bone mass by WHO criteria. 2. The WHO fracture risk assessment tool (FRAX) indicates that the 10 year risk for a major osteoporotic fracture is 12% and the 10 year risk for ahip fracture is 3.6%. The FRAX tool has not been validated in patients currently or previously treated with pharmacotherapy for osteoporosis. In such patients, clinical judgement must be exercised in interpreting FRAX scores as the fracturerisk may be overestimated. REFERENCE: Bone mineral density: Normal (T-score above [...] information, including treatment recommendations, please referto the 2013 ISCD Official Positions (http://www.iscd.org) and the NOF's Clinician's Guide to Prevention and Treatment of Osteoporosis (http://www.nof.org/professionals/clinical-guidelines) THIS IS AN ELECTRONICALLY VERIFIED FINAL REPORT 12/06/2020 11:59 AM - Electronically signed by Felipe Barker M.D. AB: Report ID: [id number] Reading Location: [id number] Beau Clement MD IMFreddy DXA PROCEDURES F inal Result documented in this encounter Visit Diagnoses Diagnosis Age-related osteoporosis without current pathological fracture documented in this encounter Care Teams Explosives Mixer Operator Relationship Specialty Start Date End Date Beau Clement MD [address] [place] [address] PCP - Essence Attributed PCP 03/08/17 Beau Clement MD [address] [place] [address] PCP - General Family Medicine 07/13/18 documented as of this encounter
--- OUTSIDE RECORDS SUMMARY | 2024-03-18 22:42 | XMS_ITS | Encounter Summary ---
Author Organization [facility] Address [address] [facility] [address] [place] [address] Care Team Providers Care Surgeon/President Name Role Phone Beau Clement MD Unavailable +1- [phone] Beau Clement MD Primary Care Provid er Reason for Visit * Reason Onset Date Comments mri 08/26/2021 appt scheduled 09/25/21 08/26/2021 Encounter Details Date Type Department Care Team (Late st Contact Info) Description 08/26/2021 Telephone [facility] Family Medicine [address] [address] Beau Clement MD [address] [address] mri; appt scheduled 09/25/21 Social History Tobacco Use Types Packs/Day Years [...] on file Legal Sex Female 8:[address] Gender Identity Female 08/22/2019 6:09 AM CDT Sexual Orientation Straight 08/22/2019 6: 09 AM CDT documented as of this encounter Miscellaneous Notes * Telephone Encounter - Lisa Sepulveda - 09/16/2021 10:15 AM CDT MRI approved. * Telephone Encounter - Karla Quigley - 08/27/2021 1:21 PM CDT Fyi, thank you * Telephone Encounter - Donna Yeboah - 08/27/2021 1:17 PM CDT Mri brain [facility] 09/25/21 8:15am * Telephone Encounter - Beau Clement MD - 08/26/2021 3:25 PM CDT MRI re-ordered * Telephone Encounter - Donna Yeboah - 08/26/2021 3:20 PM CDT Per Yeimi with the [facility] radiology states the order for the MRI Brain should be MRI Brain w/o contrast. yeimi [phone] Thanks cayden documented in this encounter Plan of Treatment Not on file documented as of this encounter Visit Diagnoses Not on filedocumented in this encounter Care Teams Surgeon/President Relationship Specialty Start Date End Date Beau Clement MD [address] [facility] [place] [address] PCP - Essence Attributed PCP 03/08/17 Beau Clement MD [address] [place] [address] PCP - General Family Medicine 07/13/18 documented as of this encounter
--- OUTSIDE RECORDS SUMMARY | 2024-03-18 22:42 | XMS_ITS | Encounter Summary ---
Author Organization [facility] Address [address] [facility] [address] [place] [address] Care Team Providers Care Hardness Tester Name Role Phone Beau Clement MD Unavailable +- [phone] Beau Clement MD Primary Care Provid er Reason for Visit * Reason Comments Memory Loss Patient here virtual ly related to memory loss. Patient also states she thinks she has Covid, she has runny nose, L ear feels blocked up- is currently taking at home covid Encounter Details Date Type Department Care Team (Latest Contact Info) Description 10/31/2021 11:00 AM CDT Telemedicine [facility] Family Medicine [address] [phone] Beau Clement MD [address] [address] Memory impairment (Primary Dx); Short-term memory loss; Cerebral microvascular disease; Essential (primary) hypertension; Dyslipidemia; Upper respiratory infection, viral Social History Tobacco Use Types Packs/Day Years [...] on file 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 Gender Identity Female 08/22/2019 6:09 AM CDT Sexual Orientation Straight 08/22/2019 6: 09 AM CDT documented as of this encounter Last Filed Vital Signs Vital Sign Reading Time Taken Comments Blood Pressure - - Pulse - - Temperature - - Respiratory Rate - - Oxygen Saturation - - Inhaled Oxygen Concentration - - Weight 48.1 kg (106 lb) 10/31/2021 10:58 AM CDT Height 157.5 cm (5' 2 ) 10/31/2021 10:58 AM CDT Body Mass Index 19.39 10/31/2021 10:58 AM CDT documented in this encounter Ordered Prescriptions Prescription Sig Dispense Quantity Refills Last Filled Start Date End Date atorvastatin (LIPITOR) 40 mg tablet Take 1 tablet (40 mg total) by mouth daily 90 tablet 3 10/31/2021 10/29/2022 documented in this encounter Progress Notes * Beau Clement MD - 10/31/2021 11:00 AM CDT Subjective/Objective Patient ID: Dottie Bryant is a 76 y.o. female. Chief Complaint Chief Complaint Patient presents with ??? Memory Loss Patient here virtually related to memory loss. Patient also states she thinks she has Covid, she has runny nose, L ear feels blocked up- is currently taking at home covid HPI Today's visit follow-up on a recent brain MRI for memory problems and confusion. There is a family history in the patient's mother dementia and aneurysm. The patient has also had upper respiratory infection including cough and congestion, particularly of significant runny nose. She was just COVID tested, and was negative. The patient's past medical history, surgical history, family history, and social history were reviewed today. This was a telemedicine visit with Dottie Bryant and her which took place via real-timevideo connection with [facility].??During the visit, I was located in the office and the patient was located at home in the state of [place].??The patient visit started at 1055 and ended at 1110. My total encounter time on 10/31/2021 was 22 minutes which was spent in the activities documented in the note. This includes time spent prior to the visit and after the visit in direct care of the patient. This time does not include time spent in any separately reportable services.. The patient has been informed that the visit may not be secure and acknowledged the information. I have explained the option of participating in a telephone or video visit during the COVID-19 public health emergency to the patient.??After being given an opportunity to ask questions about and discuss this type of visit, the patient verbally consented to proceeding with the telephone/video visit.??The patient understands that this service replaces an office visit and they may be billed and/or responsible for any applicable copayments. Acute Neurological Problem The patient's primary symptoms include memory loss. The patient's pertinent negatives include no weakness. The current episode started more than 1 month ago. The neurological problem developed gradually. The problem has been gradually worsening since onset. There was no focality noted. Associated sy mptoms include confusion and headaches. Pertinent negatives include no abdominal pain, chest pain, dizziness, fatigue, fever, light-headedness, nausea, palpitations, shortness of breath or vomiting. Past treatments include medication. The treatment provided mild relief. Review of Systems Constitutional: Negative for activity change, appetite change, chills, fatigue and fever. HENT: Positive for congestion and rhinorrhea. Negative for ear pain, sinus pressure, sinus pain, sore [...] neck stiffness. Skin: Negative for rash. Neurological: Positive for headaches. Negative for dizziness, weakness and light-headedness. Psychiatric/Behavioral: Positive for confusion and memory loss. Negative for decreased concentration and sleep disturbance. The patient is not nervous/anxious. Physical Exam Vitals and nursing note reviewed. Constitutional: General: She is not in acute distress. Appearance: Normal appearance. She is not ill-appearing or toxic-appearing. HENT: Head: Normocephalic and atraumatic. Nose: Nose normal. Eyes: Extraocular Movements: Extraocular movements intact. Pulmonary: Effort: Pulmonary effort is normal. No respiratory distress. Musculoskeletal: General: Normal range of motion. Cervical back: Normal range of motion. Neurological: General: No focal deficit present. Mental Status: She is alert and oriented to person, place, and time. Mental status is at baseline. Psychiatric: Mood and Affect: Mood normal. Behavior: Behavior normal. Thought Content: Thought content normal. Judgment: Judgment normal. Assessment/Plan Diagnoses and all orders for this visit: Memory impairment (Primary) Short-term memory loss Cerebral microvascular disease Essential (primary) hypertension Dyslipidemia Upper respiratory infection, viral Plan: 1. Memory impairment/short-term memory loss: No obvious evidence Alzheimer's on the MRI. 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 Address the stroke risk factors and continue to monitor. Consider neurology consult if symptoms worsen. 2. Cerebral microvascular disease: Noted on MRI, including old lacunar infarcts. Reviewed these results with the patient and her . I am going to increase her cholesterol medication. Continue aspirin daily. Continue to monitor the blood pressure closely. 3. Hypertension: Continue low-sodium diet. Continue metoprolol XL. Continue to monitor. 4. Dyslipidemia: Boost the atorvastatin from 10-40 mg daily. Continue healthy diet. Encouraged more exercise. Continue to monitor. 5. Viral URI: Rest. Keep hydrated. OTC symptomatic medication as needed documented in this encounter Plan of Treatment Not on file documented as of this encounter Visit Diagnoses Diagnosis Memory impairment- Primary Memory loss Short-term memory loss Memory loss Cerebral microvascular disease Unspecified cerebrovascular disease Essential (primary) hypertension Unspecified essential hypertension Dyslipidemia Other and unspecified hyperlipidemia Upper respiratory infection, viral documented in this encounter Discontinued Medications Medication Sig Discontinue Reason Start Date End Da te amoxicillin-clavulanate (AUGMENTIN) 875-125 mg per tablet 09/03/2021 10/31/2021 atorvastatin (LIPITOR) 10 mg tablet TAKE ONE TABLET BY MOUTH ONCE DAILY 02/17/2021 10/31/2021 documented as of this encounter Care Teams Hardness Tester Relationship Specialty Start Date End Date Beau Clement MD [address] [place] [address] PCP - Essence Attributed PCP 03/08/17 Beau Clement MD [address] [place], [place] [id number] PCP - General Family Medicine 07/13/18 documented as of this encounter
--- OUTSIDE RECORDS SUMMARY | 2024-03-18 22:42 | XMS_ITS | Encounter Summary ---
Author Organization [facility] Address [address] [facility] [address] [place] [address] Care Team Providers Care Naval Inspector Name Role Phone Beau Clement MD Unavailable +- [phone] Beau Clement MD Primary Care Provid er Encounter Details Date Type Department Care Team (Late st Contact Info) Description 08/27/2021 Orders Only [facility] Family Medicine [address] [address] Beau Clement MD [address] [address] Late onset Alzheimer's dementia without behavioral disturbance (HCC) (Primary Dx); Memory impairment; Short-term memory loss Social History Tobacco Use [...] on file 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 Gender Identity Female 08/22/2019 6:09 AM CDT Sexual Orientation Straight 08/22/2019 6: 09 AM CDT documented as of this encounter Plan of Treatment Not on file documented as of this encounter Visit Diagnoses Diagnosis Late onset Alzheimer's dementia without behavioral disturbance (HCC)- Primary Memory impairment Memory loss Short-term memory loss Memory loss documented in this encounter Care Teams Naval Inspector Relationship Specialty Start Date End Date Beau Clement MD [address] [place] [address] PCP - Essence Attributed PCP 03/08/17 Beau Clement MD [address] [place] [address] PCP - General Family Medicine 07/13/18 documented as of this encounter
--- OUTSIDE RECORDS SUMMARY | 2024-03-18 22:42 | XMS_ITS | Encounter Summary ---
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 * Addendum Note - Vivi Tapia MA - 09/05/2021 2:07 PM CDTAddended by: VIVI TAPIA on: 09/05/2021 02:07 PM Modules accepted: Orders * Telephone Encounter - Vivi Tapia MA - 09/05/2021 2:07 PM CDT Referral placed * Telephone Encounter - Lisa Sepulveda - 09/05/2021 1:[address] this External referral as requested. * Telephone Encounter - Deborah Hamilton - 09/04/2021 11:49 AM CDT REFERRAL Is this a Continuation of Care? : NO Specialty: PODIATRY Diagnosis/Reason for Referral: B35.1 Appointment Date & Time: 09-10-2021 @ 7:30AM Specialist Full Name: DR. ALAINA VALDIVIA Specialist Address: [facility] Specialist Phone# : [phone] Specialst Fax# : [phone] Specialist NPI Number: [id number] documented in this encounter Plan of Treatment Not on file documented as of this encounter Visit Diagnoses Diagnosis Dermatophytosis of nail- Primary documented in this encounter Care Teams Finnish Rubber Relationship Specialty Start Date End Date Beau Clement MD [address] [place] [address] PCP - Essence Attributed PCP 03/08/17 Beau Clement MD [address] [place] [address] PCP - General Family Medicine 07/13/18 documented as of this encounter
--- OUTSIDE RECORDS SUMMARY | 2024-03-18 22:42 | XMS_ITS | Encounter Summary ---
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 * Telephone Encounter - Laura Shipman - 10/13/2021 9:19 AM CDT Pt's called to zen with Dr. Gutierrez next available. She is currently scheduled 11/26 and added to wait list, but would like sooner if possible. * Telephone Encounter - Ray Schwartz COA - 10/08/2021 9:30 AM CDT I called pt. No answer LM asking for a call back to get pt scheduled with another cataract surgery provider. documented in this encounter Plan of Treatment Not on file documented as of this encounter Visit Diagnoses Not on filedocumented in this encounter Care Teams Barber Apprentice Relationship Specialty Start Date End Date Beau Clement MD [address] [place] [address] PCP - Essence Attributed PCP 03/08/17 Beau Clement MD [address] [place] [address] PCP - General Family Medicine 07/13/18 documented as of this encounter
--- OUTSIDE RECORDS SUMMARY | 2024-03-18 22:42 | XMS_ITS | Encounter Summary ---
Author Organization [facility] Address [address] 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 Records faxed to Dr. Navarro for review and appt. Spoke with patient, she will call back with appt info once these are scheduled for Essence authorization. * Telephone Encounter - Beau Clement MD - 11/27/2020 12:45 PM CDT Consult sent, MRI ordered * Telephone Encounter - Lisa Sepulveda - 11/26/2020 8:10 AM CDT Please change the current referral to reflect change requested or place new EXTERNAL referral. An MRI will need to be done and patient would like to get this done at [facility], this will also need to be placed. * Telephone Encounter - Deborah Hamilton - 11/25/2020 9:01 AM CDT Mr. Bryant called this morning and stated that Pt would rather have a referral to [facility] He stated that he tried calling Dr. Romeo's office and repeatedly could not get a hold of anyone. Pt is in severe pain and needed to be seen blue. pls advise at [phone] documented in this encounter Plan of Treatment Not on file documented as of this encounter Visit Diagnoses Not on filedocumented in this encounter Care Teams Battery Charger Relationship Specialty Start Date End Date Beau Clement MD [facility] [address] [place] [address] PCP - Essence Attributed PCP 03/08/17 Beau Clement MD [address] [place] [address] PCP - General Family Medicine 07/13/18 documented as of this encounter
--- OUTSIDE RECORDS SUMMARY | 2024-03-18 22:42 | XMS_ITS | Encounter Summary ---
Author Organization [facility] Address [address] [facility] [address] [place] [address] Care Team Providers Care Blankbook Stitching Machine Operator Name Role Phone Beau Clement MD Unavailable + [phone] Beau Clement MD Primary Care Provid er Reason for Visit * Reason Comments Memory Loss Patient's wa nts to discuss memory problems . 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 Gender Identity Female 08/22/2019 6:09 AM CDT Sexual Orientation Straight 08/22/2019 6: 09 AM CDT documented as of this encounter Last Filed Vital Signs Vital Sign Reading Time Taken Comments Blood Pressure 158/80 02/24/2021 12:38 PM CIRCULATION REPRESENTATIVE Pulse 59 02/24/2021 12:38 PM CIRCULATION REPRESENTATIVE Temperature 36.6 ??C (97.8 ??F) 02/24/2021 12:[address] Respiratory Rate 16 02/24/2021 12:38 PM CIRCULATION REPRESENTATIVE Oxygen Saturation 98% 02/24/2021 12:38 PM CIRCULATION REPRESENTATIVE Inhaled Oxygen Concentration - - Weight 48.7 kg (107 lb 6.4 oz) 02/24/2021 12:38 PM CIRCULATION REPRESENTATIVE Height 157.5 cm (5' 2 ) 02/24/2021 12:38 PM CIRCULATION REPRESENTATIVE Body Mass Index 19.64 02/24/2021 12:38 PM CIRCULATION REPRESENTATIVE documented in this encounter Ordered Prescriptions Prescription Sig Dispense Quantity Refills Last Filled Start Date End Date donepeziL (ARICEPT) 5 mg tabletIndications: Short-term memory loss Take 1 tablet (5 mg total) by mouth nightly 30 tablet 02/24/2021 2 documented in this encounter Progress Notes * Beau Clement MD - 02/24/2021 12:45 PM CST Subjective/Objective Patient ID: Dottie Bryant is a 75 y.o. female. Chief Complaint Chief Complaint Patient presents with ??? Memory Loss Patient's wants to discuss memory problems . ??? Back Pain Patient wants to discuss medical marijuana HPI Valentina is here with the today to discuss her memory. Her short-term memory has been getting worse and worse. She has difficulty remembering what happened this morning or even yesterday or the day before. She routinely forgets things, such as taking her medication, or paying bills. Her has had to take over these duties. There is no agitation. The loss has been gradual and steady. There is no family history of Alzheimer's or similar conditions. There is no tremor or other neurological signs. In addition, the patient like to discuss options for her chronic low back pain. She has known severe arthritis of the lumbar spine, and she has frequent back pain due to it. There is no radiation of the pain and there are no red flags. She wonders about the possibility of medical marijuana because it has been suggested to her. The patient's past medical history surgical history family history, and social history were reviewed [...] hematuria and urgency. Musculoskeletal: Positive for back pain. Negative for arthralgias, joint swelling and myalgias. [...] Diagnoses and all orders for this visit: Short-term memory loss (Primary) - donepeziL (ARICEPT) 5 mg tablet; Take 1 tablet (5 mg total) by mouth nightly Chronic bilateral low back pain without sciatica Plan: 1. Memory loss: Almost certainly dementia of one form or another. Differential includes age related dementia, Alzheimer's dementia, multi-infarct dementia, or other less common in dimensions. Discussed the possible diagnoses, prognoses, and treatment options with the patient and her . After going over the possible options, the patient and her elected to try Aricept. We will start low at 5 mg daily, and if she does well on it, will plan on increasing to 10 mg daily in 1 month. Will continue to monitor closely. 2. Chronic low back pain: Discussed treatment options with the patient. Here interested in topical marijuana cream, but I recommend they try an OTC topical CBD cream first. They would qualify for the [place] [employer] marijuana based on her arthritis and chronic pain. I discussed the potential side effects of the treatments include cognition issues. Will continue to monitor. ULATION REPRESENTATIVE documented in this encounter Plan of Treatment Not on file documented as of this encounter Visit Diagnoses Diagnosis Short-term memory loss- Primary Memory loss Chronic bilateral low back pain without sciatica documented in this encounter Discontinued Medications Medication Sig Discontinue Reason Start Date End Da te traMADoL (ULTRAM) 50 mg tablet Take 1 tablet (50 mg total) by mouth every 8 (eight) hours as needed for pain 11/22/2020 02/24/2021 calcium carbonate-vitamin D3 250-125 mg-unit tabletIndications:Osteop enia of both hips Take 1 tablet by mouth daily 02/24/2021 documented as of this encounter Care Teams Blankbook Stitching Machine Operator Relationship Specialty Start Date End Date Beau Clement MD [address] [place] [address] PCP - Essence Attributed PCP 03/08/17 Beau Clement MD [address] [place] [address] PCP - General Family Medicine 07/13/18 documented as of this encounter
--- OUTSIDE RECORDS SUMMARY | 2024-03-18 22:42 | XMS_ITS | Encounter Summary ---
Author Organization [facility] Address [address] [facility] [address] [place] [address] Care Team Providers Care Commercial Project Manager Name Role Phone Beau Clement MD Unavailable + [phone] Beau Clement MD Primary Care Provid er Reason for Visit * Reason Comments Urinary Symptom pt stated she's here for possible bladder infection stated she's having a hard time going and pain in on left side of back Encounter Details Date Type Department Care Team (Late st Contact Info) Description 11/15/2020 8:45 AM CDT Office Visit [facility] Family Medicine [address] [address] Lucio Abreu Jr., [address] [address] Urinary frequency (Primary Dx); Arthritis of low back Social History Tobacco [...] on file 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 Gender Identity Female 08/22/2019 6:09 AM CDT Sexual Orientation Straight 08/22/2019 6: 09 AM CDT documented as of this encounter Last Filed Vital Signs Vital Sign Reading Time Taken Comments Blood Pressure 138/70 11/15/2020 8:27 AM CDT Pulse 63 11/15/2020 8:27 AM CDT Temperature 36.8 ??C (98.2 ??F) 11/15/2020 8:27 AM CD T Respiratory Rate 17 11/15/2020 8:27 AM CDT Oxygen Saturation 99% 11/15/2020 8:27 AM CDT Inhaled Oxygen Concentration - - Weight 51.3 kg (113 lb) 11/15/2020 8:27 AM CDT Height 157.5 cm (5' 2 ) 11/15/2020 8:27 AM CDT Body Mass Index 20.67 11/15/2020 8:27 AM CDT documented in this encounter Ordered Prescriptions Prescription Sig Dispense Quantity Refills Last Filled Start Date End Date traMADoL (ULTRAM) 50 mg tablet Take 1 tablet (50 mg total) by mouth every 8 (eight) hours as needed for pain 21 tablet 11/15/2020 11/22/2020 documented in this encounter Progress Notes * Lucio Abreu Jr., PA - 11/15/2020 8:45 AM CDT Images from the original note were not included. Subjective/Objective Patient ID: Dottie Bryant is a 75 y.o. female. Chief Complaint Urinary Symptom (pt stated she's here for possible bladder infection stated she's having a hard time going and pain in on left side of back) HPI Pt in for possible UTI Pt denies any frequency No urgency No blood in the urine No fever No nausea or vomiting Does get some leakage Pt was treated for low back pain last week Pt given tramadol and medrol dosepak Review of Systems Constitutional: Negative for activity change and appetite change. HENT: Negative for congestion and postnasal drip. Eyes: Negative for photophobia and pain. Respiratory: Negative for cough and shortness of breath. Cardiovascular: Negative for chest pain and palpitations. Gastrointestinal: Negative for abdominal pain and diarrhea. No change in bowel pattern Endocrine: Negative for cold intolerance and polyuria. Genitourinary: Positive for dysuria. Negative for difficulty urinating and urgency. Musculoskeletal: Positive for back pain. Negative for arthralgias and joint swelling. Skin: No noted rashes or lesions Allergic/Immunologic: No AR or MANUELA symptoms Neurological: Negative for dizziness and headaches. Hematological: Negative for adenopathy. Psychiatric/Behavioral: Negative for behavioral problems and sleep disturbance. The patient is not nervous/anxious. No noted changes in mood or affect SOC: non smoker Physical Exam wdwn W female in NAD VS as above stable Eyes-orthophoric Fundiscopic benign OCOP: no oral mucosal lesions Neck : no adenopathy or tenderness Thyroid non-palp Lungs: CTA with good air movement Heart: RRR w/o m, g , r Abd: soft, +BS all quadrants, no HSM or CVAT No masses or tenderness Extremities: no edema, or cyanosis Skin: clear, no visible lesions or rashes Neuro: A & O x 3, verbalizes well. Makes good eye contact Office UA: SG 1020 Ph: 7/0 Urobli - 2 Remainder neg Reviewed xrays of back IMPRESSION: 1. Bilateral sacroiliac joints are symmetric and intact. ?? 2. Advanced degenerative changes at L5/S1 with severe disc space narrowing, endplate sclerosis and prominent endplate osteophyte formation. Assessment/Plan Diagnoses and all orders for this visit: Urinary frequency (R35.0) (Primary) - Urine culture Urine, clean voided; Future - POCT urinalysis dipstick Arthritis of low back (M47.819) Other orders - traMADoL (ULTRAM) 50 mg tablet; Take 1 tablet (50 mg total) by mouth every 8 (eight) hours as needed for pain At this time suspect patient's pain is due to her arthritis in the lower back, will give a refill on the tramadol. Will send her urine off for culture just to rule out a urinary tract infection. Encouraged patient to keep well hydrated. Cont current care Cont current meds Activities as tolerated Watch for new or change in symptoms Rtc prn or if new symptoms arise F/u: prn, pt has follow appt with her PCM -next week Pt verbalizes understanding documented in this encounter Plan of Treatment Not on file documented as of this encounter Procedures Procedure Name Priority Date/Time Associated Diagnosis Comments POCT URINALYSIS DIPSTICK Routine 11/15/2020 9:21 AM CDT Urinary frequency URINE CULTURE Routine 11/15/2020 9:07 AM CDT Urinary frequency documented in this encounter Results * POCT urinalysis dipstick (11/15/2020 9:21 AM CDT) Color, Urine, POC Yellow Clarity, ur, POC Clear Clear Glucose, ur, POC Negative Negative mg/dL Bilirubin, ur, POC Negative Negative, Small, Moderate, Large Ketones, ur, POC Negative Negative Specific [place], POC 1.020 1.005 - 1.030 Blood, ur, POC Negative Negative pH, ur, POC 7.0 5.0 - 8.0 Protein, ur, POC Negative Negative Urobilinogen, urine, POC 0.2 0.2 - 1.0 mg/dL Nitrite, ur, POC Negative Negative Leukocytes, ur, POC Negative Negative Lot Number [id number] Urine 11/15/2020 9:21 AM CDT us LEXY Posada Jr. POINT OF CARE TEST OR DERABLES Final Result * Urine culture Urine, clean voided (11/15/2020 9:07 AM CDT) Urine culture [facility] Comment: ??CULTURE, URINE, ROUTINE ?Micro Number: ?[id number] ??Test Status: ? Final ??Specimen Source: ?? Not given ??Specimen Quality: ??Adequate ??Result: ?No Growth Urine, clean voided 11/15/2020 9:07 AM CDT 11/16/2020 2:38 AM CDT us LEXY Posada Jr. LAB MICROBIOLOGY - GE NERAL ORDERABLES Final Result [facility] [address] [place] [address] documented in this encounter Visit Diagnoses Diagnosis Urinary frequency- Primary Arthritis of low back documented in this encounter Discontinued Medications Medication Sig Discontinue Reason Start Date End Da te traMADoL (ULTRAM) 50 mg tablet Take 1 tablet (50 mg total) by mouth every 8 (eight) hours as needed for pain Reorder 11/08/2020 11/15/2020 documented as of this encounter Care Teams Commercial Project Manager Relationship Specialty Start Date End Date Beau Clement MD [address] [place] [address] PCP - Essence Attributed PCP 03/08/17 Beau Clement MD [address] [place] [address] PCP - General Family Medicine 07/13/18 documented as of this encounter
--- OUTSIDE RECORDS SUMMARY | 2024-03-18 22:42 | XMS_ITS | Encounter Summary ---
Author Organization [facility] Address [address] [facility] [address] [place] [address] Care Team Providers Care University Extension Specialist Name Role Phone Beau Clemetn MD Unavailable + [phone] Beau Clement MD Primary Care Provid er Encounter Details Date Type Department Care Team (Late st Contact Info) Description 12/11/2020 Orders Only [facility] [address] [place] [address] Beau Clement MD [facility] [address] [place] [address] Social History Tobacco Use Types Packs/Day [...] on file 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 Gender Identity Female 08/22/2019 6:09 AM CDT Sexual Orientation Straight 08/22/2019 6: 09 AM CDT documented as of this encounter Plan of Treatment Not on file documented as of this encounter Procedures Procedure Name Priority Date/Time Associated Diagnosis Comments SCAN - RADIOLOGY/IMAGING 12/11/2020 documented in this encounter Results * SCAN - RADIOLOGY/IMAGING (12/11/2020) Anatomical Region Laterality Modality Other Beau hutson Result documented in this encounter Visit Diagnoses Not on filedocumented in this encounter Care Teams University Extension Specialist Relationship Specialty Start Date End Date Beau Clement MD [address] [place], [place] [id number] PCP - Essence Attributed PCP 03/08/17 Beau Clement MD [address] [place], [place] [address] PCP - General Family Medicine 07/13/18 documented as of this encounter
--- OUTSIDE RECORDS SUMMARY | 2024-03-18 22:42 | XMS_ITS | Encounter Summary ---
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 * Telephone Encounter - Chiquita Munoz LPN - 07/01/2021 12:00 PM CDT Referral placed. * Telephone Encounter - Lisa Sepulveda - 07/01/2021 11:[address] External referral as requested for 6 visits. * Telephone Encounter - Deborah Hamilton - 07/01/2021 10:09 AM CDT Pt is scheduled to see Dr. Roslyn Bagley (Ophthalmology/Optometry) on 08-15-2021 @ 1:00pm for a possible Left Eye Cataract issues, Requesting a referral placed and an Essence Auth. Pls. Advise at [phone] should there be any issues. documented in this encounter Plan of Treatment Not on file documented as of this encounter Visit Diagnoses Diagnosis Cataract of left eye, unspecified cataract type- Primary documented in this encounter Care Teams Auger Supervisor Relationship Specialty Start Date End Date Beau Clement MD [address] [place] [address] PCP - Essence Attributed PCP 03/08/17 Beau Clement MD [address] [place] [address] PCP - General Family Medicine 07/13/18 documented as of this encounter
--- OUTSIDE RECORDS SUMMARY | 2024-03-18 22:42 | XMS_ITS | Encounter Summary ---
Author Organization [facility] Address [address] [place] [address] Phone Care Team Providers Care Green Plumber Name Role Phone Beau Clement MD Unavailable [phone]- [phone] Beau Clement MD Primary Care Provid er Encounter Details Date Type Department Care Team (Late st Contact Info) Description 09/30/2021 2:00 PM CDT Office Visit [facility] Ophthalmology [address] [place] [address] [address] [place] [address] Addy Nguyen MD [address] [place], [place] [id number] Retinal drusen of both eyes (Primary Dx); Age-related nuclear cataract of left eye; Pseudophakia of right eye Social History Tobacco Use Types Packs/Day [...] on file 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 Likely NVS, observe. Recommended no smoking, healthy diet, UV protection. Pt to return to clinic with any new or worsening vision changes, ocular pain, flashes/floaters/curtain in vision. Age-related nuclear cataract of left eye Current Assessment & Plan Assessment and Plan 1. Visually Significant Cataract [...] multifocal, EDOF, and toric lenses. Discussed possible glare/halofollowing multifocal lenses. The patient elected to target plano. Planned Operation: CE/IOL of the left eye Time: 25 Anesthesia: MAC Local: topical Special equipment: trypan, possible CTR, possible ring Preop meds: None Med Clearance: CPAP IOL Master: will schedule with topography Pseudophakia of right eye Current Assessment & Plan Had CE/IOL OD at [facility]. Will obtain IOL records. documented in this encounter Miscellaneous Notes * Assessment & Plan Note - Addy Nguyen MD - 10/01/2021 9:50 AM CDT Associated Problem(s): Retinal drusen of both eyes Educated pt on signs/symptoms of retinal drusen. Likely NVS, observe. Recommended no smoking, healthy diet, UV protection. Pt to return to clinic with any new or worsening vision changes, ocular pain, flashes/floaters/curtain in vision. * Assessment & Plan Note - Addy Nguyen MD - 10/01/2021 9:49 AM CDT Associated Problem(s): Pseudophakia of both eyes Had CE/IOL OD at [facility]. Will obtain IOL records. * Assessment & Plan Note - Addy Nguyen MD - 10/01/2021 9:48 AM CDT Associated Problem(s): Age-related nuclear cataract of left eye (Resolved 05/21/2022) Assessment and Plan 1. Visually Significant Cataract [...] multifocal, EDOF, and toric lenses. Discussed possible glare/halofollowing multifocal lenses. The patient elected to target plano. Planned Operation: CE/IOL of the left eye Time: 25 Anesthesia: MAC Local: topical Special equipment: trypan, possible CTR, possible ring Preop meds: None Med Clearance: CPAP IOL Master: will schedule with topography documented in this encounter Plan of Treatment Not on file documented as of this encounter Visit Diagnoses Diagnosis Retinal drusen of both eyes- Primary Age-related nuclear cataract of left eye Pseudophakia of right eye Lens replaced by other means documented in this encounter Historical Medications * This list may reflect changes made after this encounter. Medication Sig Dispense Quantity Refills Last Filled Start D ate End Date amoxicillin-clavulana te (AUGMENTIN) 875-125 mg per tablet 09/03/2021 added in this encounter Eye Exam Visual Acuity (Snellen - Linear) Right eye Left eye Dist cc 20/40 -1 20/60 Dist ph cc NI NI Correction: Glasses Tonometry (Applanation, 3:03 PM) Right eye Left eye Pressure 18 15 Pupils Dark Shape React APD Right eye 4 Round Minimal None Left eye 3 Round Minimal None Visual Torres (Counting fingers) Right eye Left eye Restrictions Partial outer inferi or temporal, inferior nasal deficiencies Partial outer inferior nasal deficiency Extraocular Movement Right eye Left eye Full Full Neuro/Psych Oriented x3: Yes Mood/Affect: Normal Dilation Both eyes: 1.0% Mydriacyl, 2 .5% Phenylephrine @ 3:03 PM Glare Testing (BAT) Off High Right eye 20/40 20/200 Left eye 20/40 20/200 External Exam Right eye Left eye External Normal Normal Slit Lamp Exam Right eye Left eye Lids/Lashes mild MGD mild MGD Conjunctiva/Sclera White and quiet White and rodney et Cornea Clear Clear Anterior Chamber Deep and quiet Deep and quiet Iris Round and reactive poor dil Lens PCIOL in good positi on, tr peripheral PCO, clear lens 2+ NS, 2+ Cortical cataract, no donesis Vitreous Posterior vitreous detachment Vi treous syneresis Fundus Exam Right eye Left eye Disc Normal Normal C/D Ratio 0.2 0.2 Macula central fine drusen, no IRF/SRF central fine drusen, no IRF/SRF Vessels Normal Normal Manifest Refraction (Auto) Sphere Cylinder [place] Dist VA Right eye -0.75 +0.75 011 20/40 Left eye -0.50 +1.25 017 20/40 Care Teams Green Plumber Relationship Specialty Start Date End Date Beau Clement MD [address] [place] [address] PCP - Essence Attributed PCP 03/08/17 Beau Clement MD [address] [place] [address] PCP - General Family Medicine 07/13/18 documented as of this encounter
--- OUTSIDE RECORDS SUMMARY | 2024-03-18 22:42 | XMS_ITS | Encounter Summary ---
Author Organization [facility] Address [address] [place] [address] Phone Care Team Providers Care Pharmacist In Charge Name Role Phone Beau Clement MD Unavailable [phone]- [phone] Beau Clement MD Primary Care Provid er Encounter Details Date Type Department Care Team (Late st Contact Info) Description 08/15/2021 1:00 PM CDT Office Visit [facility] Ophthalmology [address] 6th [address], [address] [facility] [place] [place] [address] Roslyn Bagley, OD [address] [place] [address] Age-related nuclear cataract of left eye (Primary Dx); Retinal drusen of both eyes; Posterior vitreous detachment of right eye; Pseudophakia of right eye Social History [...] on file 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 Discussed option of CEIOL OS. Pt would like referral toMD for preop OS. Of note: pt with concern that pt does not see well. Her acuity is relatively good today Neha believe some of this is attributable to pt's memory loss for which she has been following with her PCP. Retinal drusen of both eyes Current Assessment & Plan Educated pt on signs/symptoms of retinal drusen. Likely NVS, observe. Recommended no smoking, healthy diet, UV protection. Pt to return to clinic with any new or worsening vision changes, ocular pain, flashes/floaters/curtain in vision. Posterior vitreous detachment of right eye Current Assessment & Plan Discussed retinal precautions - pt to call immediately with new or worsening floaters/flashes/curtain in vision. Pseudophakia of right eye Current Assessment & Plan Stable, observe. Updated SRx given today. Follow Up: Return for preop with Matt Nguyen or Angie for cataract surgery. Roslyn Bagley, OD documented in this encounter Miscellaneous Notes * Assessment & Plan Note - Roslyn Bagley, OD - 08/15/2021 2:53 PM CDTAssociated Problem(s): Posterior vitreous detachment of right eye Discussed retinal precautions - pt to call immediately with new or worsening floaters/flashes/curtain in vision. * Assessment & Plan Note - Roslyn Bagley, OD - 08/15/2021 2:50 PM CDTAssociated Problem(s): Retinal drusen of both eyes Educated pt on signs/symptoms of retinal drusen. Likely NVS, observe. Recommended no smoking, healthy diet, UV protection. Pt to return to clinic with any new or worsening vision changes, ocular pain, flashes/floaters/curtain in vision. * Assessment & Plan Note - Roslyn Bagley, OD - 08/15/2021 2:49 PM CDTAssociated Problem(s): Age-related nuclear cataract of left eye (Resolved 05/21/2022) Educated pt on signs/symptoms of cataracts. Discussed option of CEIOL OS. Pt would like referral toMD for preop OS. Of note: pt with concern that pt does not see well. Her acuity is relatively good today Neha believe some of this is attributable to pt's memory loss for which she has been following with her PCP. * Assessment & Plan Note - YudiNinaRoslyn, OD - 08/15/2021 2:49 PM CDTAssociated Problem(s): Pseudophakia of both eyes Stable, observe. Updated SRx given today. documented in this encounter Plan of Treatment Not on file documented as of this encounter Visit Diagnoses Diagnosis Age-related nuclear cataract of left eye- Primary Retinal drusen of both eyes Posterior vitreous detachment of right eye Vitreous degeneration Pseudophakia of right eye Lens replaced by other means documented in this encounter Eye Exam Visual Acuity (Snellen - Linear) Right eye Left eye Dist cc 20/25 -1 20/40 +1 Dist ph cc 20/20 -2 NI Correction: Glasses Tonometry (Applanation, 1:13 PM) Right eye Left eye Pressure 17 17 Pupils Pupils Right eye PERRL Left eye PERRL Visual Torres Right eye Left eye Restrictions Partial outer inferior temporal deficiency Extraocular Movement Right eye Left eye Full Full Neuro/Psych Oriented x3: Yes Mood/Affect: Normal Dilation Both eyes: 1.0% Mydriacyl, 2 .5% Phenylephrine @ 1:13 PM External Exam Right eye Left eye External Normal Normal Slit Lamp Exam Right eye Left eye Lids/Lashes mild MGD mild MGD Conjunctiva/Sclera White and quiet White and rodney et Cornea Clear Clear Anterior Chamber Deep and quiet Deep and quiet Iris Round and reactive Round and deuce ctive Lens PCIOL in good positi on, tr peripheral PCO 2+ NS, 2+ Cortical cataract Vitreous Posterior vitreous detachment Vi treous syneresis Fundus Exam Right eye Left eye Disc Normal Normal C/D Ratio 0.2 0.2 Macula central fine drusen, no IRF/SRF central fine drusen, no IRF/SRF Vessels Normal Normal Periphery Normal Normal Wearing Rx Sphere Cylinder [place] Add Right eye -0.75 +0.75 164 +2.00 Left eye -0.75 +0.75 008 +2.00 Manifest Refraction Sphere Cylinder [place] Dist VA Add Right eye -0.75 +0.50 180 20/20 +2.50 Left eye -0.50 +1.25 015 20/40-2 +2.50 Final Rx Sphere Cylinder [place] Dist VA Add Right eye -0.75 +0.50 180 20/20 +2.50 Left eye -0.50 +1.25 015 20/40-2 +2.50 Care Teams Pharmacist In Charge Relationship Specialty Start Date End Date Beau Clement MD [address] [place], [place] [id number] PCP - Essence Attributed PCP 03/08/17 Beau Clement MD [address] [place], [place] [address] PCP - General Family Medicine 07/13/18 documented as of this encounter
--- OUTSIDE RECORDS SUMMARY | 2024-03-18 22:42 | XMS_ITS | Encounter Summary ---
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 Gender Identity Female 08/22/2019 6:09 AM CDT Sexual Orientation Straight 08/22/2019 6: 09 AM CDT documented as of this encounter Ordered Prescriptions Prescription Sig Dispense Quantity Refills Last Filled Start Date End Date ofloxacin (OCUFLOX) 0.3 % ophthalmic solution Administer 1 drop into the left eye 4 (four) times a day Start after 12-02-21 surgery 5 mL 1 10/24/2021 2 prednisoLONE acetate (PRED FORTE) 1 % ophthalmic suspension Administer 1 drop into the left eye 4 (four) times a day Start after 12-02-21 surgery 10 mL 1 10/24/2021 2 documented in this encounter Miscellaneous Notes * Telephone Encounter - Ray SchwartzAUSTIN - 10/24/2021 12:50 PM CDT I called pt- scheduled surgery. Sent paperwork to pt's my chart and drops to pharmacy. Surgery Date: 12-02-21 Your Surgeon is: Dr. Nguyen Location of [facility]: [facility] [address] [place] [address] Arrival Time for Surgery: 10:30am - Time subject to change Surgery Start Time: 12:30pm INSTRUCTIONS FOR EYE SURGERY IMPORTANT THINGS TO KNOW BEFORE YOUR SURGERY DATE * You are required to have a person over the age of 18 accompany you on the day of surgery. If you use Medical Transportation/Cab, please inform them you will have a passenger with during transport. *If unable to find a passenger over the age of 18 to accompany you to and from surgery, your surgery will be cancelled. *DO NOT: -Failure to comply may result in surgery being cancelled or delayed. ??? Eat or Drink anything after Midnight the night before surgery ??? Use of alcohol, recreational drug or non-prescribed medications 24 hours prior to surgery. *A Nurse Practitioner from Pre-Surgery Testing will call you prior to your surgery to go over your health history, insulin and medications. Most assessments are done over the phone, if deemed necessary, you will be given an in-person appointment. PRE-OP DATE: PRE-OP TIME: AM / PM Pre-op Phone #: [phone]- Please call if need to reschedule What is CPAP: [facility] CPAP/Pre-testing Clinic IMPORTANT THINGS TO KNOW BEFORE YOUR SURGERY DATE Please start using the drops that have a X in front of it- __ Ketorolac 1 drop 4 times daily, starting 3 days prior to surgery or after surgery. _X_ Prednisolone Acetate and Ofloxacin 1 drop 4 times daily starting after surgery. These drops have been sent to your local pharmacy. Please pick them up at your convenience. If having 2nd eye done shortly, ok to use the drops you have. If you need a refill, please call the pharmacy. If you are taking any of the following mediation, please consult with your primary care physician or citizenship teacher. We may ask that you stop taking these medications 3-5 days prior to surgery. Coumadin Heparin Plavix Vitamin E Aspirin (you may use Tylenol) Fish Oil (or any other dietary supplements) Post Op Visit #1: (your surgeon may change this on day of surgery) -Location: [x] [facility]- [address] [facility], [address] Date: 12-03-21 Time: 8:20am With Dr. Bagley Post Op Visit #2: -Location: [x] [facility]- [address], [address] [] [facility]-[address], [address] [] [facility] [facility] [place], [address] (6th floor) [] [facility]- [address], [address] Date: 12-09-21 Time: 10:40am AFTER SURGERY You will receive further instructions from your doctor on what to do after surgery. You should anticipate having at least 3 follow up appointments after surgery. *If you have any questions regarding your Post-op's please call: Ray (Dyeing Machine Tender) @ [phone] or [phone] About Cataract Surgery and Follow up Cataract surgery consists of making an incision in the eye, removing the natural lens(which has thecataract in it), and replacing it with an artificial lens. The procedure usually takes about an hour, but may take longer if you have a dense cataract. The procedure will be done under local/topical anesthesia, but you may need some sedation through an IV to lessen anxiety. The vision out of your surgical eye will be blurry and things may not seem sharp, this is very normal. After the surgery, you will leave the patch/shield on overnight. You will return to the eye clinic to be examined the day after surgery, at that time the shield will be removed. For at least the first week after surgery, you must tape the shield on at bedtime for protection. You may wear your glasses during the day. You will be on eye drops for about one month after surgery, possibly longer if there is need. You SHOULD NOT do any heavy lifting (5-10 lbs or more), no swimming and must avoid bending over forthe first 2 weeks after surgery. Your follow-up exams after surgery will be at one day after and two weeks after surgery. However, there may be additional visits needed. documented in this encounter Plan of Treatment Not on file documented as of this encounter Visit Diagnoses Not on filedocumented in this encounter Care Teams Float Operator Relationship Specialty Start Date End Date Beau Clement MD [address] [place] [address] PCP - Essence Attributed PCP 03/08/17 Beau Clement MD [address] [place] [address] PCP - General Family Medicine 07/13/18 documented as of this encounter
--- OUTSIDE RECORDS SUMMARY | 2024-03-18 22:43 | XMS_ITS | Encounter Summary ---
Author Organization [facility] Address [address] [place] [address] Care Team Providers Care Cargo Agent Name Role Phone Beau Clement MD Unavailable [phone]- [phone] Reason for Visit * Reason Onset Date Comments Mammogram Gaps and Care Act 06/20/2018 Encounter Details Date Type Department Care Team (Late st Contact Info) Description 06/20/2018 Telephone [facility] Patient Access [address] [place] [address] Beau Clement MD [address] [place] [address] Mammogram Gaps and Care Act Social History Tobacco Use Types Packs/Day Years Used Date Smoking Tobacco: Never Assessed Comments Unknown Sex and Gender Information Value Date Recorded Sex Assigned at Not on file 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 Patient Coil Maker documented in this encounter Plan of Treatment Not on file documented as of this encounter Visit Diagnoses Not on filedocumented in this encounter Care Teams Cargo Agent Relationship Specialty Start Date End Date Beau Clement MD [address] [place] [address] PCP - Essence Attributed PCP 03/08/17 documented as of this encounter
--- OUTSIDE RECORDS SUMMARY | 2024-03-18 22:43 | XMS_ITS | Encounter Summary ---
Author Organization [facility] Address [address] [place] [address] Care Team Providers Care Math Tutor Name Role Phone Beau Clement MD Unavailable +- [phone] Beau Clement MD Primary Care Provid er Encounter Details Date Type Department Care Team (Late st Contact Info) Description 09/02/[address] [facility] Accountable Care Organization [address] [place] [address] Jennifer Russell, RN [address] [facility] [address] [address] Social History Tobacco Use Types Packs/Day Years Used Date Smoking Tobacco: Never Smokeless Tobacco: Never Alcohol Use Standard Drinks/Week Comments Not Currently 0 (1 standard drink = 0.6 oz pur e alcohol) PHQ-2 Answer Date Recorded PHQ-2 Total Score (If total score is 3 or more points, staff should administer the PHQ-9) 0 11/09/2019 Comments No Sex and Gender Information Value Date Recorded Sex Assigned at Not on file 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 Patient has appt tomorrow * Telephone Encounter - Jennifer Russell RN - 09/02/2020 5:45 PM CDT Essence- appt 09/04/20- mammogram status- fall/depression screen 2020- thank you - Jennifer Russell RN, BSN [facility] [place] for High Risk [phone] documented in this encounter Plan of Treatment Not on file documented as of this encounter Visit Diagnoses Not on filedocumented in this encounter Care Teams Math Tutor Relationship Specialty Start Date End Date Beau Clement MD [address] [place] [address] PCP - Essence Attributed PCP 03/08/17 Beau Clement MD [address] [place] [address] PCP - General Family Medicine 07/13/18 documented as of this encounter
--- OUTSIDE RECORDS SUMMARY | 2024-03-18 22:43 | XMS_ITS | Encounter Summary ---
Author Organization [facility] Healthcare Address [address] [place] [address] Care Team Providers Care Straightening Roll Operator Name Role Phone Beau Clement MD Unavailable +1- [phone] Beau Clement MD Primary Care Provid er Reason for Referral * Diagnostic Imaging (Routine) - Closed Specialty Diagnoses / Procedures Referred By Dede cat Referred To Contact Diagnoses Chronic left SI joint pain Procedures XR Sacroiliac Joints 3 Or More Beau Garcia MD [address] [place] [address] Phone: tel: fax: [address] [phone] Referral ID Status Reason Start Date Expiration Date Visits Re quested Visits Authorized [id number] Closed 11/07/2020 12/07/2021 1 1 Reason for Visit * Diagnostic Imaging (Routine) - Closed Specialty Diagnoses / Procedures Referred By Dede cat Referred To Contact Diagnoses Chronic left SI joint pain Procedures XR Sacroiliac Joints 3 Or More Beau Garcia MD [address] [place] [address] Phone: tel: fax: [address] [phone] Referral ID Status Reason Start Date Expiration Date Visits Re quested Visits Authorized [id number] Closed 11/07/2020 12/07/2021 1 1 Encounter Details Date Type Department Care Team (Latest Contact Info) Description 11/07/2020 1:37 PM CDT - 11/07/2020 11:59 PM CDT Hospital Encounter [facility] Diagnostic Imaging [address] [place] [address] Chronic left SI joint pain Discharge Disposition: Discharge to home or self [...] on file 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 Gender Identity Female 08/22/2019 6:09 AM [...] ONCE DAILY 90 tablet 2 06/04/2020 02/17/2021 clarithromycin (BIAXIN) 500 mg tabletIndication s:Cough TAKE 1 TABLET BY MOUTH TWICE A DAY FOR 10 DAYS 20 tablet 1 11/01/2020 11/20/2020 methylPREDNISolo ne (MEDROL DOSEPACK) 4 mg DosepackIndicati [...] Name Priority Date/Time Associated Diagnosis Comments XR SACROILIAC JOINTS 3 OR MORE VIEWS Schedule Routine, Read Routine (OP Routine) 11/07/2020 2:00 PM CDT Chronic left SI joint pain documented in this encounter Results * XR Sacroiliac Joints 3 Or More Vws (11/07/2020 2:00 PM CDT) Anatomical Region Laterality Modality Pelvis, Body N/A Computed Radiogr aphy 11/08/2020 11:2 0 AM CDT Narrative 11/08/2020 11:23 AM CDT EXAM DESCRIPTION: ?? XR SACROILIAC JOINTS 3 OR MORE VIEWS REASON FOR STUDY: ?? Left sacroiliac joint pain for 1.5 years. TECHNIQUE: ?? AP and bilateral oblique views of the sacroiliac joints. COMPARISON: ?? None available. FINDINGS: BONES/JOINTS: ??No acute fracture or dislocation. No suspicious bone lesion. ?? Bilateral sacroiliac joints are symmetrically intact without erosions. SOFT TISSUES: ??Unremarkable. ??Multiple surgical clips seen in the left groin region. OTHER: ??Severe disc space narrowing at L5/S1 noted with significant endplate sclerosis and osteophyte formation. IMPRESSION: ??1. ??Bilateral sacroiliac joints are symmetric and intact. 2. ??Advanced degenerative changes at L5/S1 with severe disc space narrowing, endplate sclerosis and prominent endplate osteophyte formation. THIS IS AN ELECTRONICALLY VERIFIED FINAL REPORT 11/08/2020 11:23 AM - Electronically signed by Jasen Quick M.D. ML: ALYSON D: ??11/08/2020 11:23 AM T: ??11/08/2020 11:23 AM Report ID: [id number] Reading Location: ??[id number] Procedure Note Jasen Quick MD - 11/08/2020 EXAM DESCRIPTION: XR SACROILIAC JOINTS 3 OR MORE VIEWS REASON FOR STUDY: Left sacroiliac joint pain for 1.5 years. TECHNIQUE: AP and bilateral oblique views of the sacroiliac joints. COMPARISON: None available. FINDINGS: BONES/JOINTS: No acute fracture or dislocation. No suspicious bonelesion. Bilateral sacroiliac joints are symmetrically intact without erosions. SOFT TISSUES: Unremarkable. Multiple surgical clips seen in the leftgroin region. OTHER: Severe disc space narrowing at L5/S1 noted with significantendplate sclerosis and osteophyte formation. IMPRESSION: 1. Bilateral sacroiliac joints are symmetric and intact. 2. Advanced degenerative changes at L5/S1 with severe disc spacenarrowing, endplate sclerosis and prominent endplate osteophyte formation. THIS IS AN ELECTRONICALLY VERIFIED FINAL REPORT 11/08/2020 11:23 AM - Electronically signed by Jasen Quick M.D. ML: ALYSON Report ID: [id number] Reading Location: [place] [address] Beau Clement MD IMG XR PROCEDURES Fi nal Result documented in this encounter Visit Diagnoses Diagnosis Chronic left SI joint pain Disorders of sacrum documented in this encounter Care Teams Straightening Roll Operator Relationship Specialty Start Date End Date Beau Clement MD [address] [place] [address] PCP - Essence Attributed PCP 03/08/17 Beau Clement MD [address] [place] [address] PCP - General Family Medicine 07/13/18 documented as of this encounter
--- OUTSIDE RECORDS SUMMARY | 2024-03-18 22:43 | XMS_ITS | Encounter Summary ---
Author Organization [facility] Address [address] [facility] [address] [place] [address] Care Team Providers Care Histology Teacher Name Role Phone Beau Clement MD Unavailable + [phone] Beau Clement MD Primary Care Provid er Encounter Details Date Type Department Care Team (Late st Contact Info) Description 02/05/2020 Telephone [facility] Family Medicine [address] [phone] Beau Clement MD [address] [address] Social History Tobacco Use Types [...] on file Legal Sex Female 8:34 AM SAP BI ARCHITECT Gender Identity Female 08/22/2019 6:09 AM CDT Sexual Orientation Straight 08/22/2019 6: 09 AM CDT documented as of this encounter Miscellaneous Notes * Telephone Encounter - Brianna Ramírez LPN - 02/06/2020 9:38 AM SAP BI ARCHITECT Video visit scheduled this afternoon BI ARCHITECT * Telephone Encounter - Beau Clement MD - 02/05/2020 5:07 PM SAP BI ARCHITECT Why don't we set up an appt, video is fine, so I can get more in depth BI ARCHITECT * Telephone Encounter - Brianna Ramírez LPN - 02/05/2020 2:12 PM SAP BI ARCHITECT I spoke with the pt and she stated that she has been coughing for about 2-3 months now. She describes it as a dry cough And she can feel congestion in her chest. The pt had amoxicillin sent in for her back on 01-14. She stated that she has took that same med in the past for this and it did help but she doesn't remember when. She has not had any covid exposure and denies any other symptoms. Please advise on how you would like to proceed. She has not yet been seen for this BI ARCHITECT * Telephone Encounter - Deborah Hamilton - 02/05/2020 12:11 PM CST Pt. (Edgard) called and stated that pt has had a cough for months now, been taking antibiotics and none has helped, worried for her because she's been coughing for almost 6 mos. And He does notwant to have her keep taking the antibiotics if none are helping. Concerned. Pls. Advise at [phone] BI ARCHITECT documented in this encounter Plan of Treatment Not on file documented as of this encounter Visit Diagnoses Not on filedocumented in this encounter Care Teams Histology Teacher Relationship Specialty Start Date End Date Beau Clement MD [facility] [address] [place] [address] PCP - Essence Attributed PCP 03/08/17 Beau Clement MD [address] [place] [address] PCP - General Family Medicine 07/13/18 documented as of this encounter
--- OUTSIDE RECORDS SUMMARY | 2024-03-18 22:43 | XMS_ITS | Encounter Summary ---
Author Organization [facility] Healthcare Address [address] [place] [address] Care Team Providers Care Oil Painter Name Role Phone Unavailable Primary Care Provider Unavailabl e Encounter Details Date Type Department Care Team (Latest Contact Info) Description 12/10/2014 1:01 PM CDT Hospital Encounter [facility] OP Guanaco Hicks MD [address] [address] Varicose veins of bilateral lower extremities with other complications; Other specified postprocedural state Social History Tobacco Use Types Packs/Day Years Used Date Smoking Tobacco: Never Assessed Comments Unknown Sex and Gender Information Value Date Recorded Sex Assigned at Not on file 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 Gender Identity Female 08/22/2019 6:09 AM CDT Sexual Orientation Straight 08/22/2019 6: 09 AM CDT documented as of this encounter Plan of Treatment Not on file documented as of this encounter Procedures Procedure Name Priority Date/Time Associated Diagnosis Comments US VEIN DUPLEX LOWER EXTREMITY BILATERAL COMPLETE Routine 12/10/2014 12:00 AM CDT documented in this encounter Results * US Vein Duplex Lower Extremity Bilateral Complete (12/10/2014 12:00 AM CDT) Anatomical Region Laterality Modality Vascular Bilateral Ultrasound 12/10/2014 Narrative 12/13/2014 10:37 AM CDT DATE OF SERVICE: 12/10/2014 REASON: ??Varicosities with pain and inflammation. FINDINGS: ??The bilateral common femoral veins have spontaneous flow which is phasic and these vessels are compressible. ??The right great saphenous vein has no flow. ??The left accessory saphenous vein has no flow. CONCLUSION: ??No evidence of deep venous thrombosis, status post endovenous laser ablation in bilateral lower extremities. NTS Job: [id number] Dictated By: Guanaco Hicks MD Dictated For: Guanaco Hicks MD [EOD] Procedure Note Provider, MD Anny - 07/24/2020 DATE OF SERVICE: 12/10/2014 REASON: Varicosities with pain and inflammation. FINDINGS: The bilateral common femoral veins have spontaneous flow whichis phasic and these vessels are compressible. The right great saphenousvein has no flow. The left accessory saphenous vein has no flow. CONCLUSION: No evidence of deep venous thrombosis, status post endovenouslaser ablation in bilateral lower extremities. NTS Job: [id number] Dictated By: Guanaco Hicks MD Dictated For: Guanaco Hicks MD [EOD] us Guanaco Hicks MD IMG US PROCEDURES Final Re sult documented in this encounter Visit Diagnoses Diagnosis Varicose veins of bilateral lower extremities with other complications Other specified postprocedural state documented in this encounter
--- OUTSIDE RECORDS SUMMARY | 2024-03-18 22:43 | XMS_ITS | Encounter Summary ---
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 Access complete set of age- and/or gender-specific ?? reference intervals for this test in the [facility] ?? Test Directory ([facility]). ?? Performed by [facility], ?? [address], [facility] [place] [address] ?? [email or web address], Javed Laughlin MD, Lab. Director ?? 09/10/2017 9:31 AM CDT 09/10/2017 9:59 AM CDT Beau Clement MD LAB BLOOD ORDERABLES Final Result Performing Organization Address City/[facility]/ZIP Co de Phone Number [facility] [employer] HISTORICAL RESULTS * Thyroid Panel (09/10/2017 9:31 AM CDT) TSH 0.97 0.27 - 4.20 uIU/mL 09/10/2017 1:22 PM CDT [facility] HISTORICAL RESULTS Free T4 1.24 0.93 - 1.70 ng/dL 09/10/2017 1:22 PM CDT [facility] HISTORICAL RESULTS 09/10/2017 9:31 AM CDT 09/10/2017 9:59 AM CDT Beau Clement MD LAB BLOOD ORDERABLES Final Result Performing Organization Address [facility] Co de Phone Number [facility] [employer] HISTORICAL RESULTS documented in this encounter Visit Diagnoses Diagnosis Nonscarring hair loss documented in this encounter Care Teams Corporate Compliance Director Relationship Specialty Start Date End Date Beau Clement MD [address] [place] [address] PCP - Essence Attributed PCP 03/08/17 documented as of this encounter
--- OUTSIDE RECORDS SUMMARY | 2024-03-18 22:43 | XMS_ITS | Encounter Summary ---
Author Organization [facility] Healthcare Address [address] [place] [address] Care Team Providers Care Correctional Therapy Director Name Role Phone Unavailable Primary Care Provider Unavailabl e Encounter Details Date Type Department Care Team (Late st Contact Info) Description 01/22/2015 1:33 PM GASTROENTEROLOGY PROFESSOR Hospital Encounter [facility] Dmitriy Locke MD [address] [place] [address] Asymptomatic menopausal state; Other specified disorders of bone density and structure, other site Social History Tobacco Use Types Packs/Day Years Used Date Smoking Tobacco: Never Assessed Comments Unknown Sex and Gender Information Value Date Recorded Sex Assigned at Not on file Legal Sex Female 8:34 AM GASTROENTEROLOGY PROFESSOR Gender Identity Female 08/22/2019 6:09 AM CDT Sexual Orientation Straight 08/22/2019 6: 09 AM CDT documented as of this encounter Plan of Treatment Not on file documented as of this encounter Procedures Procedure Name Priority Date/Time Associated Diagnosis Comments GENERAL RADIOLOGY REPORT 01/25/2015 12:00 AM GASTROENTEROLOGY PROFESSOR DEXA AXIAL SKELETON BONE DENSITY 1 OR MORE SITES Routine 01/22/2015 1:34 PM GASTROENTEROLOGY PROFESSOR GENERAL RADIOLOGY REPORT 01/22/2015 12:00 AM GASTROENTEROLOGY PROFESSOR documented in this encounter Results * GENERAL RADIOLOGY REPORT (01/25/2015 12:00 AM GASTROENTEROLOGY PROFESSOR) Anatomical Region Laterality Modality Radiographic Maya ging Narrative 01/25/2015 12:00 AM GASTROENTEROLOGY PROFESSOR Ordered by an unspecified provider. us Historical Provider IMFreddy XR PROCEDURES Final R esult * Dexa Axial Skeleton Bone Density 1 or 2 Site (01/22/2015 1:34 PM GASTROENTEROLOGY PROFESSOR) Anatomical Region Laterality Modality Body N/A Radiographic Maya ging 01/22/2015 1:34 PM GASTROENTEROLOGY PROFESSOR Impressions 01/22/2015 3:09 PM GASTROENTEROLOGY PROFESSOR Low bone mass. ??The patient's risk for fracture should be based not only on bone mineral density measurements but also clinical risk factors. Bone mineral density: ??Normal (T-score above or = -1.0) ??Low bone mass ??(T-score between -1.0 and -2.5) replaces the previously used term osteopenia ??Osteoporosis (T-score = or below -2.5) Medical evaluation [...] to Prevention and Treatment of Osteoporosis (http://www.nof.org/professionals/clinical-guidelines) ?? THIS IS AN ELECTRONICALLY VERIFIED REPORT 01/22/2015 3:06 PM: ??Rich Ortega M.D. Rich Ortega M.D. : 03:06 PM 03:06 PM [facility] [EOD] Narrative 01/22/2015 3:09 PM GASTROENTEROLOGY PROFESSOR HISTORY: ??69 year old postmenopausal female with given history of postmenopausal status. Current Height: ??62 inches Maximum Height: ??63 inches Weight: ??130 pounds RISK FACTORS: None reported ?? COMPARISON(S): ??None ETHYLBENZENE CRACKING SUPERVISOR/MODEL: [employer] (S/N [id number]) FINDINGS: AP lumbar spine ??L1-L4 Total BMD is 1.121 g/zh3Y-fkmpu is 0.7 Measured lumbar spine BMD is thought to be spuriously elevated due to facet arthropathy. Left Hip Total BMD is 0.657 g/ao1I-dwhuj is -2.3 Neck BMD is 0.595 g/sj3P-rrvhk is -2.3 Fracture risk assessment (FRAX): 10 year risk for a major osteoporotic fracture is 12 % 10 year risk for a hip fracture is 2.5 % The FRAX tool has not been validated in patients currently or previously treated with pharmacotherapy for osteoporosis. ??In such patients, clinical judgement must be exercised in interpreting FRAX scores as the fracture risk may be overestimated. Procedure Note Provider, MD Anny - 07/24/2020 HISTORY: 69 year old postmenopausal female with given historyof postmenopausal status. Current Height: 62 inches Maximum Height: 63 inches Weight: 130 pounds RISK FACTORS: None reported COMPARISON(S): None ETHYLBENZENE CRACKING SUPERVISOR/MODEL: [employer] (S/N [id number]) FINDINGS: AP lumbar spine L1-L4 Total BMD is 1.121 g/zs6B-hdlcm is 0.7 Measured lumbar spine BMD is thought to be spuriously elevated due tofacet arthropathy. Left Hip Total BMD is 0.657 g/nk4R-lbouj is -2.3 Neck BMD is 0.595 g/oq1S-rxyvp is -2.3 Fracture risk assessment (FRAX): 10 year risk for a major osteoporotic fracture is 12 % 10 year risk for a hip fracture is 2.5 % The FRAX tool has not been validated in patients currently or previously treated with pharmacotherapy for osteoporosis. In such patients, clinical judgement must be exercised in interpreting FRAX scores as the fracturerisk may be overestimated. IMPRESSION: Low bone mass. The patient's risk for fracture should be based not onlyon bone mineral density measurements but also clinical risk factors. Bone mineral density: Normal (T-score above or = -1.0) Low bone mass (T-score between -1.0 and -2.5) replaces the previously used term osteopenia Osteoporosis (T-score = or [...] Osteoporosis (http://www.nof.org/professionals/clinical-guidelines) THIS IS AN ELECTRONICALLY VERIFIED REPORT 01/22/2015 3:06 PM: Rich Ortega M.D. Rich Ortega M.D. MD: 03:06 PM 03:06 PM [facility] [EOD] Dmitriy Locke MD IMG DXA PROCEDURES Final R esult * GENERAL RADIOLOGY REPORT (01/22/2015 12:00 AM GASTROENTEROLOGY PROFESSOR) Anatomical Region Laterality Modality Radiographic Maya ging Narrative 01/22/2015 12:00 AM GASTROENTEROLOGY PROFESSOR Ordered by an unspecified provider. Historical Provider IMFreddy XR PROCEDURES Final R esult documented in this encounter Visit Diagnoses Diagnosis Asymptomatic menopausal state Other specified disorders of bone density and structure, other site documented in this encounter
--- OUTSIDE RECORDS SUMMARY | 2024-03-18 22:43 | XMS_ITS | Encounter Summary ---
Author Organization [facility] Healthcare Address [address] [place] [address] Care Team Providers Care Central Office Operator Supervisor Name Role Phone Beau Clement MD Unavailable +- [phone] Beau Clement MD Primary Care Provid er Encounter Details Date Type Department Care Team (Late st Contact Info) Description 11/03/2018 7:53 AM CDT Hospital Encounter [facility] Beau Clement MD [address] [place] [address] Social History Tobacco Use Types Packs/Day Years Used Date Smoking Tobacco: Never Smokeless Tobacco: Never Alcohol Use Standard Drinks/Week Comments Not Currently 0 (1 standard drink = 0.6 oz pur e alcohol) Comments No Sex and Gender Information Value Date Recorded Sex Assigned at Not on file 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 Gender Identity Female 08/22/2019 6:09 AM CDT Sexual Orientation Straight 08/22/2019 6: 09 AM CDT documented as of this encounter Medications at Time of Discharge aspirin 81 mg enteric coated tabletIndications :heart health Take 1 tablet (81 mg total) by mouth every morning calcium carbonate/vitamin D3 (CALCIUM 500 + D ORAL)Indications: supplement Take 1 tablet by mouth every morning alendronate (FOSAMAX) 70 mg tablet TAKE 1 TABLET BY MOUTH ONCE PER WEEK 12 tablet 10/24/2018 03/28/2019 atorvastatin (LIPITOR) 10 mg tablet Take 1 tablet (10 mg total) by mouth daily 90 tablet 3 07/14/2018 07/19/2019 biotin 5 mg tablet daily 08/22/2019 folic acid (FOLVITE) 800 mcg tablet Take 400 mcg by mouth daily 02/06/2020 metoprolol XL (TOPROL-XL) 25 mg 24 hr tablet Take 1 tablet (25 mg total) by mouth daily 90 tablet 3 07/14/2018 07/19/2019 multivitamin capsuleIndication s:Vitamin Deficiency Prevention Take 1 capsule by mouth every morning 11/27/2021 zinc gluconate 50 mg tablet Take 50 mg by mouth daily 06/05/2019 documented as of this encounter Plan of Treatment Not on file documented as of this encounter Visit Diagnoses Not on filedocumented in this encounter Care Teams Central Office Operator Supervisor Relationship Specialty Start Date End Date Beau Clement MD [address] [place] [address] PCP - Essence Attributed PCP 03/08/17 Beau Clement MD [address] [place] [address] PCP - General Family Medicine 07/13/18 documented as of this encounter
--- OUTSIDE RECORDS SUMMARY | 2024-03-18 22:43 | XMS_ITS | Encounter Summary ---
Author Organization [facility] Address [address] [facility] [address] [place] [address] Care Team Providers Care Wool Hat Hydraulicker Name Role Phone Beau Clement MD Unavailable +- [phone] Beau Clement MD Primary Care Provid er Encounter Details Date Type Department Care Team (Late st Contact Info) Description 09/25/2019 Telephone [facility] Accountable Care Organization [address] [place] [address] Jeninfer Russell, RN [address] [facility] [address] [address] Social History Tobacco Use Types Packs/Day Years Used Date Smoking Tobacco: Never Smokeless Tobacco: Never Alcohol Use Standard Drinks/Week Comments Not Currently 0 (1 standard drink = 0.6 oz pur e alcohol) Comments No Sex and Gender Information Value Date Recorded Sex Assigned at Not on file 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 Jennifer Russell RN, BSN [facility] Public Health Outreach Worker for High Risk [phone] documented in this encounter Plan of Treatment Not on file documented as of this encounter Visit Diagnoses Not on filedocumented in this encounter Care Teams Wool Hat Hydraulicker Relationship Specialty Start Date End Date Beau Clement MD [address] [place] [address] PCP - Jaz Attributed PCP 03/08/17 Beau Clement MD [address] [place] [address] PCP - General Family Medicine 07/13/18 documented as of this encounter
--- OUTSIDE RECORDS SUMMARY | 2024-03-18 22:43 | XMS_ITS | Encounter Summary ---
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 * Telephone Encounter - Faiza Young PA - 08/08/2020 11:42 AM CDT Referral placed * Telephone Encounter - Lisa Sepulveda - 08/08/2020 9:[address] this EXTERNAL C of C referral as requested for 6 visits. * Telephone Encounter - Deborah Hamilton - 08/08/2020 9:01 AM CDT REFERRAL Is this a Continuation of Care? : NO Specialty: PODIATRY Diagnosis/Reason for Referral: M72.2 Appointment Date & Time: 08-13-2020 @ 9:15AM Specialist Full Name: DR. REGAN MITCHELL Specialist Address: [place], [place] Specialist Phone# : [phone] [facility] Fax# : [phone] Specialist NPI Number: [id number] documented in this encounter Plan of Treatment Not on file documented as of this encounter Visit Diagnoses Diagnosis Plantar fibromatosis- Primary Plantar fascial fibromatosis documented in this encounter Care Teams Film Technician Relationship Specialty Start Date End Date Beau Clement MD [address] [place], [place] [id number] PCP - Essence Attributed PCP 03/08/17 Beau Clement MD [address] [place] [address] PCP - General Family Medicine 07/13/18 documented as of this encounter
--- OUTSIDE RECORDS SUMMARY | 2024-03-18 22:43 | XMS_ITS | Encounter Summary ---
Author Organization [facility] Address [address] [facility] [address] [place] [address] Care Team Providers Care Front Desk Administrator Name Role Phone Beau Clement MD Unavailable + [phone] Beau Clement MD Primary Care Provid er Reason for Visit * Reason Comments Syncope Wednesday pt states she fainted, she was just standing and then she fainted. She had no warning, no dizziness.. Encounter Details Date Type Department Care Team (Late st Contact Info) Description 08/22/2019 8:15 AM CDT Office Visit [facility] Family Medicine [address] [address] Beau Clement MD [address] [address] Syncope, unspecified syncope type (Primary Dx); Essential (primary) hypertension; Dyslipidemia Social History Tobacco Use Types Packs/Day Years Used Date Smoking Tobacco: Never Smokeless Tobacco: Never Alcohol Use Standard Drinks/Week Comments Not Currently 0 (1 standard drink = 0.6 oz pur e alcohol) Comments No Sex and Gender Information Value Date Recorded Sex Assigned at Not on file Legal Sex Female 8:34 AM BANQUET LEAD Gender Identity Female 08/22/2019 6:09 AM CDT Sexual Orientation Straight 08/22/2019 6: 09 AM CDT documented as of this encounter Last Filed Vital Signs Vital Sign Reading Time Taken Comments Blood Pressure 130/70 08/22/2019 8:04 AM CDT Pulse 64 08/22/2019 8:04 AM CDT Temperature 36.9 ??C (98.5 ??F) 08/22/2019 8:04 AM CD T Respiratory Rate 18 08/22/2019 8:04 AM CDT Oxygen Saturation 99% 08/22/2019 8:04 AM CDT Inhaled Oxygen Concentration - - Weight 58.6 kg (129 lb 1.6 oz) 08/22/2019 8:04 A M CDT Height 157.5 cm (5' 2 ) 08/22/2019 8:04 AM CDT Body Mass Index 23.61 08/22/2019 8:04 AM CDT documented in this encounter Progress Notes * Beau Clement MD - 08/22/2019 8:15 AM CDT Subjective/Objective Patient ID: Dottie Bryant is a 74 y.o. female. Chief Complaint Chief Complaint Patient presents with ??? Syncope Wednesday pt states she fainted, she was just standing and then she fainted. She had no warning, no dizziness.. HPI Two days ago, while standing in the kitchen making coffee, the patient had a sudden attack of syncope and passed out. There were no warning symptoms had of time. There is no tunnel vision, or diaphoresis, palpitations, or other signs or symptoms. She has no previous history of syncope. She had beenfeeling well previously, and not been performing any new activities. He was only passed out for a split second, reports that when she came to, she felt a little lightheaded. Since then she has felt fine and had no other episodes. She has been checking her blood pressure since the episode, and has remained good. The patient's past medical history, surgical history, [...] Skin: Negative for rash. Neurological: Positive for syncope. Negative for dizziness, weakness, light- headedness and headaches. Psychiatric/Behavioral: Negative for decreased concentration and sleep disturbance. The patient is not nervous/anxious. Physical Exam Vitals signs and nursing note reviewed. Constitutional: General: She is not in acute distress. Appearance: She is well-developed. HENT: Head: Normocephalic and atraumatic. Right Ear: Tympanic membrane, ear canal and external ear normal. Left Ear: Tympanic membrane, ear canal and external ear normal. Nose: Nose normal. No rhinorrhea. Mouth/Throat: Pharynx: Uvula midline. No posterior oropharyngeal erythema. Eyes: Conjunctiva/sclera: Conjunctivae normal. Pupils: Pupils are equal, round, and reactive to light. Neck: Musculoskeletal: Normal range of motion and neck supple. Thyroid: No thyroid mass or thyromegaly. Vascular: No carotid bruit or JVD. Cardiovascular: Rate and Rhythm: Normal rate and regular rhythm. Heart sounds: Normal heart sounds. No murmur. No friction rub. No gallop. Pulmonary: Effort: Pulmonary effort is normal. Breath sounds: Normal breath sounds. No wheezing. Abdominal: General: Bowel sounds are normal. There is no distension. Palpations: Abdomen is soft. There is no mass. Tenderness: There is no abdominal tenderness. Musculoskeletal: Normal range of motion. General: No deformity. Lymphadenopathy: Cervical: No cervical adenopathy. Skin: General: Skin is warm and dry. Capillary Refill: Capillary refill takes less than 2 seconds. Findings: No rash. Neurological: Mental Status: She is alert and oriented to person, place, and time. Cranial Nerves: No cranial nerve deficit. Motor: No abnormal muscle tone. Coordination: Coordination normal. Gait: Gait normal. Deep Tendon Reflexes: Reflexes normal. Psychiatric: Behavior: Behavior normal. Thought Content: Thought content normal. Judgment: Judgment normal. Assessment/Plan Diagnoses and all orders for this visit: Syncope, unspecified syncope type (Primary) - ECG 12 lead - Ambulatory referral to Cardiology; Future Essential (primary) hypertension - Ambulatory referral to Cardiology; Future Dyslipidemia Plan: 1. Syncope: Am concerned about a possible cardiac cause of her syncope given its sudden onset and lack of prodrome symptoms. I obtained an EKG in the office and it showed slight bradycardia, which is to be expected with her metoprolol use, but no rhythm abnormality. Orthostatic hypotension is a possibility, given that she was standing, but as noted above, I want to take a closer look at the heart, so I am going to have her see Cardiology for evaluation, even with these since she normal EKG. I will send her Dr Garrett at [facility], as that is who her sees. 2. Hypertension: Keep hydrated. Continue healthy diet. Continue low-dose metoprolol. 3. Dyslipidemia: Diet control. Continue healthy diet. Maintain healthy weight. documented in this encounter Plan of Treatment Not on file documented as of this encounter Procedures Procedure Name Priority Date/Time Associated Diagnosis Comments ECG 12-LEAD Routine 08/22/2019 Syncope, unspecified syncope type documented in this encounter Results * ECG 12 lead (08/22/2019) Beau Clement MD ECG ORDERABLES Blanca l Result documented in this encounter Visit Diagnoses Diagnosis Syncope, unspecified syncope type- Primary Essential (primary) hypertension Unspecified essential hypertension Dyslipidemia Other and unspecified hyperlipidemia documented in this encounter Discontinued Medications Medication Sig Discontinue Reason Start Date End Da te amoxicillin-clavulanate (AUGMENTIN) 500-125 mg per tabletIndications:Acute non-recurrent maxillary sinusitis Take 1 tablet by mouth 2 (two) times a day 07/17/2019 08/22/2019 biotin 5 mg tablet daily 08/22/2019 documented as of this encounter Care Teams Front Desk Administrator Relationship Specialty Start Date End Date Beau Clement MD [address] [place] [address] PCP - Essence Attributed PCP 03/08/17 Beau Clement MD [address] [place] [address] PCP - General Family Medicine 07/13/18 documented as of this encounter
--- OUTSIDE RECORDS SUMMARY | 2024-03-18 22:43 | XMS_ITS | Encounter Summary ---
Author Organization [facility] Address [address] [facility] [address] [place] [address] Care Team Providers Care Caramel Candy Maker Name Role Phone Beau Clement MD Unavailable +- [phone] Beau Clement MD Primary Care Provid er Reason for Visit * Reason Comments Essence Enhanced Encounter Encounter Details Date Type Department Care Team (Late st Contact Info) Description 11/09/2019 8:00 AM CDT Office Visit [facility] Family Medicine [address] [address] Beau Clement MD [address] [address] Encounter for Medicare annual wellness exam (Primary Dx); Essential (primary) hypertension; Dyslipidemia; Age-related osteoporosis without current pathological fracture; Depression screening; At standard risk for fall [...] on file 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 Gender Identity Female 08/22/2019 6:09 AM CDT Sexual Orientation Straight 08/22/2019 6: 09 AM CDT documented as of this encounter Last Filed Vital Signs Vital Sign Reading Time Taken Comments Blood Pressure 168/94 11/09/2019 7:38 AM CDT Pulse 65 11/09/2019 7:38 AM CDT Temperature 36.9 ??C (98.4 ??F) 11/09/2019 7:38 AM CD T Respiratory Rate - - Oxygen Saturation 98% 11/09/2019 7:38 AM CDT Inhaled Oxygen Concentration - - Weight 56.8 kg (125 lb 4.8 oz) 11/09/2019 7:38 A M CDT Height 157.5 cm (5' 2 ) 11/09/2019 7:38 AM CDT Body Mass Index 22.92 11/09/2019 7:38 AM CDT documented in this encounter Ordered Prescriptions Prescription Sig Dispense Quantity Refills Last Filled Start Date End Date alendronate (FOSAMAX) 70 mg tabletIndications: Age-related osteoporosis without current pathological fracture Take 1 tablet by mouth once per week 12 tablet 3 11/09/2019 09/04/2020 documented in this encounter Progress Notes * Beau Clement MD - 11/09/2019 8:00 AM CDT Images from the original note were not included. MEDICARE ANNUAL WELLNESS VISIT Dottie Bryant Basic Information In general, would you say your health is: Good Do you have an Advanced Directive (Living Will) and/or Durable Power of Lodge Officer?: No Would you like information regarding Advanced Directiv (Living Will) and/or Durable Power of Lodge Officer?: No Do you have trouble hearing the television or radio when other do not?: No Do you have to strain or struggle to hear/understand conversations?: No Have you experienced any of the following problems currently or recently? Eating: No Grooming: No Bathing: No Walking: No Using the toilet: No Memory problems: Yes Difficulty speaking: No Have you experienced any of the following problems currently or recently? Laundry and/or housekeeping: No Handling Money: No Shopping: No Food preparation: No Transportation: No Taking and/or getting your own medications: No Chief complaint: Essence Enhanced Encounter HPI: The patient is here today for her annual physical. She has no complaints. She is sleeping well and wakes refreshed. She has a healthy diet. She denies any bowel or bladder problems. Her exercise is modest in intensity, but every day. She had a fall this year, but took no damage. The patient's past medical history, surgical history, [...] file Occupational History ??? Not on file Social Needs ??? Financial resource strain: Not on file ??? Food insecurity Worry: Not on file Inability: Not on file ??? Transportation needs Medical: Not on file Non-medical: Not on file Tobacco Use ??? Smoking status: Never Smoker ??? Smokeless tobacco: Never Used Substance and Sexual Activity ??? Alcohol use: Not Currently ??? Drug use: Never ??? Sexual activity: Defer Lifestyle ??? Physical activity Days per week: Not on file Minutes per session: Not on file ??? Stress: Not on file Relationships ??? Social connections Talks on phone: Not on file Gets together: Not on file Attends mandaeism service: Not on file Active member of club or organization: Not on file Attends meetings of clubs or organizations: Not on file Relationship status: Not on file ??? Intimate partner violence Fear of current or ex partner: Not on file Emotionally abused: Not on file Physically abused: Not on file Forced sexual activity: Not on file Other Topics Concern ??? Not on file Social History Narrative ??? Not on file Allergies: Allergies Allergen Reactions ??? Celecoxib Other (See comments) Reaction: Current Medications: Outpatient Encounter Medications as of 11/09/2019 Medication Sig Dispense Refill ??? alendronate (FOSAMAX) 70 mg tablet Take 1 tablet by mouth once per week 12 tablet 3 ??? aspirin (ASPIRIN LOW DOSE) 81 mg enteric coated tablet 81 mg daily ??? atorvastatin (LIPITOR) 10 mg tablet Take 1 tablet (10 mg total) by mouth daily 90 tablet 3 ??? calcium carbonate/vitamin D3 (CALCIUM 500 + D ORAL) 2 (two) times a day ??? metoprolol XL (TOPROL-XL) 25 mg extended release tablet Take 1 tablet (25 mg total) by mouth daily 90 tablet 3 ??? multivitamin capsule Take 1 capsule by mouth daily ??? [DISCONTINUED] alendronate (FOSAMAX) 70 mg tablet Take 1 tablet by mouth once per week 12 tablet 0 ??? folic acid (FOLVITE) 800 mcg tablet Take 400 mcg by mouth daily No facility-administered encounter medications on file as of 11/09/2019. Review of Systems Constitutional: Negative for activity [...] The patient is not nervous/anxious. Vitals: Vitals: 11/09/19 0738 BP: 168/94 BP Location: Left arm Patient Position: Sitting Pulse: 65 Temp: 36.9 ??C (98.4 ??F) TempSrc: Temporal SpO2: 98% Weight: 56.8 kg (125 lb 4.8 oz) Height: 157.5 cm (5' 2 ) Physical Exam Vitals signs and nursing note [...] round, and reactive to light. Neck: Musculoskeletal: Full passive range of motion without pain, normal range of motion and neck supple. Thyroid: No thyroid mass or thyromegaly. Vascular: No carotid bruit or JVD. Trachea: Trachea and phonation normal. Cardiovascular: Rate and Rhythm: Normal rate and regular rhythm. Pulses: Normal pulses. Heart sounds: Normal heart sounds. No murmur. No friction rub. No gallop. Pulmonary: Effort: Pulmonary effort is normal. Breath sounds: Normal breath sounds and air entry. No wheezing. Abdominal: General: Bowel sounds are normal. There is no distension. Palpations: Abdomen is soft. There is no mass. Tenderness: There is no abdominal tenderness. Musculoskeletal: Normal range of motion. General: No deformity. Right lower leg: No edema. Left lower [...] Down, Depressed, or Hopeless: Not at all Trouble Falling or Staying Asleep, or Sleeping too Much: Not at all Feeling Tired or Having Little Energy: Not at all Poor Appetite or Overeating: Not at all Feeling Bad About Yourself - or That You are a Failure or Have Let Yourself or Your Family Down: Not at all Trouble Concentrating on Things, Such as Reading the Newspaper or Watching Television: Not at all Moving or Speaking so Slowly That Other People Could Have Noticed, or the Opposite - Being so Fidgety or Restless That You Have Been Moving Around a lot More Than Usual: Not at all Thoughts That You Would be Better off , or of Hurting Yourself in Some Way: Not at all PHQ-9 Total Score: 0 Anxiety screen: Generalized Anxiety Disorder 7-item [...] Not at all sure Total Score: 0 Audio/Visual screen: (only for Andrews to Medicare visit) Normal Audio Screen: Is [...] falls in the last year: (!) Yes Was the patient injured in the fall?: No Has trouble stepping up onto a curb: [...] No Often feels sad or depressed: No Incontinence: Are you experiencing or have concern about urine leakage? No Detection of Cognitive Impairment: Detect cognitive impairment based on direct observation, discussion with patient or family, or review of medical records? No Advanced Directive Durable Power of Lodge Officer: No Living Will: No Care Team Providers: Patient Care Team: Beau Clement MD as PCP - General (Family Medicine) Beau Clement MD as PCP - Essence Attributed PCP Primary Pharmacy/DME suppliers: [id number] [place] [address] [address] [facility] [address] [facility] [address] Counseling and Referral of Preventative Services: Please see patient instructions section for recommendations for appropriate screening and monitoring guidelines. Health Maintenance: Health Maintenance Topics with due status: Overdue Topic Date Due Fall Risk Assessment 1945 Depression Screening-PHQ 1945 Osteoporosis Screening-Bone Density Scan 1945 Colon Cancer Screening-Colonoscopy 1945 Health Maintenance Topics with due status: Due On Topic Date Due Influenza Vaccine 11/07/2019 Health Maintenance Topics with due status: Due Soon Topic Date Due Breast Cancer Screening-Mammogram 11/24/2019 Health Maintenance Topics with due status: Not Due Topic Last Completion Date DTaP/Tdap/Td Vaccine 05/06/2018 Pneumococcal (PCV13 & PPSV23) 65+ yrs 03/28/2019 Regular Well Visit/Exam 11/09/2019 Health Maintenance Topics with due status: Completed Topic Last Completion Date Hepatitis C Screening 06/24/2015 Zoster Vaccines 11/03/2017 Patient here for annual Medicare wellness visit [...] Dyslipidemia Age-related osteoporosis without current pathological fracture - alendronate (FOSAMAX) 70 mg tablet; Take 1 tablet by mouth once per week Depression screening At standard risk for fall Plan: 1. Annual exam: Continue healthy diet. Continue regular exercise. Maintain healthy weight. Good health and prevention strategies discussed. 2. Hypertension: Low-sodium diet. Continue healthy weight and regular exercise. Continue metoprolol. 3. Dyslipidemia: Continue healthy diet. Maintain healthy weight. Continue regular exercise. Continue atorvastatin. 4. Osteoporosis: Continue regular exercise. Continue vitamin-D supplementation and calcium supplementation. Continue Fosamax. 5. Depression screening: PHQ 2 and PHQ 9 are negative. 6. Fall risk: Good balance, but she has taken a non-injurious fall this year. Fall risk reduction and mitigation was discussed with the patient and handouts were given. documented in this encounter Plan of Treatment Not on file documented as of this encounter Visit Diagnoses Diagnosis Encounter for Medicare annual wellness exam- Primary Essential (primary) hypertension Unspecified essential hypertension Dyslipidemia Other and unspecified hyperlipidemia Age-related osteoporosis without current pathological fracture Depression screening At standard risk for fall documented in this encounter Discontinued Medications Medication Sig Discontinue Reason Start Date End Da te alendronate (FOSAMAX) 70 mg tablet Take 1 tablet by mouth once per week Reorder 09/21/2019 11/09/2019 documented as of this encounter Care Teams Caramel Candy Maker Relationship Specialty Start Date End Date Beau Clement MD [address] [place] [address] PCP - Essence Attributed PCP 03/08/17 Beau Clement MD [address] [place] [address] PCP - General Family Medicine 07/13/18 documented as of this encounter
--- OUTSIDE RECORDS SUMMARY | 2024-03-18 22:43 | XMS_ITS | Encounter Summary ---
Author Organization [facility] Address [address] [facility] [address] [place] [address] Care Team Providers Care Vegetable Vendor Name Role Phone Beau Clement MD Unavailable + [phone] Beau Clement MD Primary Care Provid er Reason for Visit * Reason Onset Date Comments appt schedule 01/25/20 01/23/2020 Encounter Details Date Type Department Care Team (Late st Contact Info) Description 01/23/[address] 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 NIC SCIENCES PROFESSOR * Telephone Encounter - Donna Yeboah - 01/23/2020 1:[address] Beny Gabriel Pod 01/25/20 8:30am Dx M77.9 Thanks jrliz NIC SCIENCES PROFESSOR documented in this encounter Plan of Treatment Not on file documented as of this encounter Visit Diagnoses Not on filedocumented in this encounter Care Teams Vegetable Vendor Relationship Specialty Start Date End Date Beau Clement MD [address] [place] [address] PCP - Essence Attributed PCP 03/08/17 Beau Clement MD [address] [place] [address] PCP - General Family Medicine 07/13/18 documented as of this encounter
--- OUTSIDE RECORDS SUMMARY | 2024-03-18 22:43 | XMS_ITS | Encounter Summary ---
Author Organization [facility] Address [address] [place] [address] Care Team Providers Care Rug Cleaner Hand Name Role Phone Beau Clement MD Unavailable + [phone] Beau Clement MD Primary Care Provid er Reason for Referral * Consultation (Routine) - Closed Specialty Diagnoses / Procedures Referred By Contac t Referred To Contact Ophthalmology Diagnoses Cataract of both eyes, unspecified cataract type Beau Clement MD [address] [address] Phone: tel: fax: Tino Goldberg MD [address] [address] Phone: tel: fax: Referral ID Status Reason Start Date Expiration Date V isits Requested Visits Authorized [id number] Closed Specialty Services Required 08/14/2019 08/14/2020 6 6 Question Answer Please select the performing region: External Order [171] To provider: TINO GOLDBERG [[id number]] # of visits: 1 Encounter Details Date Type Department Care Team (Late st Contact Info) Description 07/26/[address] 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 Gender Identity Female 08/22/2019 6:09 AM CDT Sexual Orientation Straight 08/22/2019 6: 09 AM CDT documented as of this encounter Progress Notes * Beau Clement MD - 07/26/2019 4:28 PM CDT Consult placed documented in this encounter Plan of Treatment Scheduled Referrals Name Type Priority Associated Diagnoses Order Schedule Ambulatory referral to Ophthalmology Outpatient Referral Routine Cataract of both eyes, unspecified cataract type Expected: 08/09/2019 (Approximate), Expires: 07/25/2020 documented as of this encounter Visit Diagnoses Diagnosis Cataract of both eyes, unspecified cataract type- Primary documented in this encounter Care Teams Rug Cleaner Hand Relationship Specialty Start Date End Date Beau Clement MD [address] [place] [address] PCP - Essence Attributed PCP 03/08/17 Beau Clement MD [address] [place] [address] PCP - General Family Medicine 07/13/18 documented as of this encounter
--- OUTSIDE RECORDS SUMMARY | 2024-03-18 22:43 | XMS_ITS | Encounter Summary ---
Author Organization [facility] Address [address] [facility] [address] [facility] [address] [place] [address] Care Team Providers Care Armhole Feller Handstitching Machine Name Role Phone Beau Clement MD Unavailable + [phone] Beau Clement MD Primary Care Provid er Reason for Visit * Reason Comments Cough Dry cough sometimes coughs up yellow mucus X1 month. 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 Gender Identity Female 08/22/2019 6:09 AM CDT Sexual Orientation Straight 08/22/2019 6: 09 AM CDT documented as of this encounter Last Filed Vital Signs Vital Sign Reading Time Taken Comments Blood Pressure 140/82 07/17/2019 2:27 PM CDT Pulse 71 07/17/2019 2:27 PM CDT Temperature 36.7 ??C (98.1 ??F) 07/17/2019 2:27 PM CD T Respiratory Rate 18 07/17/2019 2:27 PM CDT Oxygen Saturation 98% 07/17/2019 2:27 PM CDT Inhaled Oxygen Concentration - - Weight 60.7 kg (133 lb 14.4 oz) 07/17/2019 2:27 PM CDT Height 157.5 cm (5' 2 ) 07/17/2019 2:27 PM CDT Body Mass Index 24.49 07/17/2019 2:27 PM CDT documented in this encounter Ordered Prescriptions Prescription Sig Dispense Quantity Refills Last Filled Start Date End Date amoxicillin-clavul anate (AUGMENTIN) 500-125 mg per tabletIndications: Acute non-recurrent maxillary sinusitis Take 1 tablet by mouth 2 (two) times a day 20 tablet 1 07/17/2019 08/22/2019 documented in this encounter Progress Notes * Beau Clement MD - 07/17/2019 3:00 PM CDT Subjective/Objective Patient ID: Dottie Bryant is a 74 y.o. female. Chief Complaint Chief Complaint Patient presents with ??? Cough Dry cough sometimes coughs up yellow mucus X1 month. HPI The patient complains of 2-4 weeks of persistent sinus pain and cough. Fever: No Chills: No Cough: Yes, productive of yellow sputum Sore throat: No Wheezing: No Shortness of breath: No Hoarseness: Yes Ear pain: No Headache: No Nausea: No Congestion: Yes Dizziness: No Rash: No Sick contacts: Yes Review of Systems Constitutional: Negative for appetite change, chills, fatigue and fever. HENT: Positive for congestion, rhinorrhea, sinus pressure, sinus pain and voice change. Negative for ear pain, sore throat and trouble swallowing. Eyes: Negative for discharge and visual disturbance. Respiratory: Positive for cough. Negative for shortness of breath and wheezing. [...] distress. Appearance: Normal appearance. She is well-developed. HENT: Head: Normocephalic and atraumatic. Right Ear: Hearing, tympanic membrane, ear canal and external ear normal. Tympanic membrane is not erythematous, retracted or bulging. Tympanic membrane has normal mobility. Left Ear: Hearing, tympanic membrane, ear canal and external ear normal. Tympanic membrane is not erythematous, retracted or bulging. Tympanic membrane has normal mobility. Nose: Rhinorrhea present. Rhinorrhea is purulent. Right Sinus: Maxillary sinus tenderness present. No frontal sinus tenderness. Left Sinus: Maxillary sinus tenderness present. No frontal sinus tenderness. Mouth/Throat: Lips: [place]. Mouth: Mucous membranes are moist. Tongue: No lesions. Pharynx: Oropharynx is clear. Uvula midline. Posterior oropharyngeal erythema (injected with cobblestoning) present. No pharyngeal swelling. Eyes: General: Right eye: No discharge. Left eye: No discharge. Extraocular Movements: Extraocular movements intact. Conjunctiva/sclera: Conjunctivae normal. Pupils: Pupils are equal, round, and reactive to light. Neck: Musculoskeletal: Normal range of motion and neck supple. Cardiovascular: Rate and Rhythm: Normal rate and regular rhythm. Heart sounds: Normal heart sounds. No murmur. No friction rub. No gallop. Pulmonary: Effort: Pulmonary effort is normal. Breath sounds: Normal breath sounds. No wheezing. Musculoskeletal: Normal range of motion. General: No deformity. Lymphadenopathy: Cervical: No cervical adenopathy. Skin: General: Skin is warm and dry. Capillary Refill: Capillary refill takes less than 2 seconds. Findings: No rash. Neurological: General: No focal deficit present. Mental Status: She is alert and oriented to person, place, and time. Motor: No abnormal muscle tone. Coordination: Coordination is intact. Coordination normal. Gait: Gait is intact. Gait normal. Psychiatric: Attention and Perception: Attention normal. Mood and Affect: Mood and affect normal. Speech: Speech normal. Behavior: Behavior normal. Behavior is cooperative. Thought Content: Thought content normal. Judgment: Judgment normal. Assessment/Plan Diagnoses and all orders for this visit: Acute non-recurrent maxillary sinusitis (Primary) - amoxicillin-clavulanate (AUGMENTIN) 500-125 mg per tablet; Take 1 tablet by mouth 2 (two) times aday Rest. Keep hydrated. OTC Mucinex. OTC Nasal Saline. documented in this encounter Plan of Treatment Not on file documented as of this encounter Visit Diagnoses Diagnosis Acute non-recurrent maxillary sinusitis- Primary documented in this encounter Care Teams Armhole Feller Handstitching Machine Relationship Specialty Start Date End Date Beau Clement MD [address] [place] [address] PCP - Essence Attributed PCP 03/08/17 Beau Clement MD [address] [place] [address] PCP - General Family Medicine 07/13/18 documented as of this encounter
--- OUTSIDE RECORDS SUMMARY | 2024-03-18 22:43 | XMS_ITS | Encounter Summary ---
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 us Historical Provider Final Res ult * SCAN - PATHOLOGY (07/09/2017 12:00 AM CDT) Narrative 07/09/2017 12:00 AM CDT Ordered by an unspecified provider. us Historical Provider Final Res ult documented in this encounter Visit Diagnoses Not on filedocumented in this encounter Care Teams Drilling Machine Runner Relationship Specialty Start Date End Date Beau Clement MD [address] [place] [address] PCP - Essence Attributed PCP 03/08/17 Beau Clement MD [address] [place] [address] PCP - General Family Medicine 07/13/18 documented as of this encounter
--- OUTSIDE RECORDS SUMMARY | 2024-03-18 22:43 | XMS_ITS | Encounter Summary ---
Author Organization [facility] Address [address] [place] [address] Care Team Providers Care Calender Worker Helper Name Role Phone Beau Clement MD Unavailable +- [phone] Beau Clement MD Primary Care Provid er Encounter Details Date Type Department Care Team (Late st Contact Info) Description 11/23/2018 8:32 AM CDT Hospital Encounter [facility] Beau Clement MD [address] [place] [address] Social History Tobacco Use Types Packs/Day Years Used Date Smoking Tobacco: Never Smokeless Tobacco: Never Alcohol Use Standard Drinks/Week Comments Not Currently 0 (1 standard drink = 0.6 oz pur e alcohol) Comments No Sex and Gender Information Value Date Recorded Sex Assigned at Not on file 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 D.O.B: 1945 ? Exam Date: 11/23/18 ?? 0834 ?? Age: 73 ?Sex: Female ? MR#: [id number] ?? Loc: ? RADIOLOGY REPORT ?? Order #[id number] ?? [facility] ? [facility] Bilateral Screening ? Signed ?- MG ?? BILATERAL DIGITAL SCREENING MAMMOGRAM WITH MEDIOLATERAL OBLIQUE CRANIOCAUDAL: ?? 11/23/2018 ?? The study was acquired using full field digital technology and interpreted from ?soft copy. ? CLINICAL: Routine mammogram. Denies any problems today. No personal history of ?? breast cancer. No family history of breast cancer. ? COMPARISONS: Comparison is made to exam dated: ??03/18/2016 mammogram - [place] ?? [facility]ammography. ? BREAST TISSUE: The tissue of both breasts is almost entirely fatty. ? FINDINGS: No significant masses, calcifications, or other findings are seen in ?? either breast. ? There has been no significant interval change. ? IMPRESSION: BI-RAD 1 ??NEGATIVE ?? There is no mammographic evidence of malignancy. A 1 year screening mammogram ?? is recommended. ? The patient has been or will be contacted. ? We recommend annual screening mammography for women at average risk of breast ?? cancer beginning at age 40, based on guidelines of the [employer] [place] [employer] ?? [employer] (ACR Practice Parameter for the Performance of Screening and ?? Diagnostic Mammography) and [place] [employer] and ?? Gynecologists. For women with an elevated risk of breast cancer, please refer ?? to the ACR Practice Parameter for specific screening recommendations. ? The patient will be entered into a reminder system with a target due date of 1 ?? year for her next screening exam. ? Electronically signed by: ?Rich Ortega M.D. ? /lex:11/23/2018 09:33:37 ? Materials Intern: Homa CHEN(R)(M), [facility] ?? letter sent: Normal Exam ? Reading location: ?? BI-RADS: 1 Negative ? REPORT ELECTRONICALLY SIGNED IN OTHER VENDOR SYSTEM ?? Resulting Agency Comment O Procedure Note Rich Ortega MD - 11/23/2018 Patient Name: DOTTIE HUANG Dr: Beau Clement MD D.O.B: 1945 Exam Date: 11/23/18 0834 Age: 73 Sex: Female MR#: [id number] Loc: RADIOLOGY REPORT Order #[id number] [facility] Bilateral Screening Signed - MG BILATERAL DIGITAL SCREENING MAMMOGRAM WITH MEDIOLATERAL OBLIQUECRANIOCAUDAL: 11/23/2018 The study was acquired using full field digital technology andinterpreted from soft copy. CLINICAL: Routine mammogram. Denies any problems today. No personalhistory of breast cancer. No family history of breast cancer. COMPARISONS: Comparison is made to exam dated: 03/18/2016 mammogram -[facility]. BREAST TISSUE: The tissue of both breasts is almost entirely fatty. FINDINGS: No significant masses, calcifications, or other findings areseen in either breast. There has been no significant interval change. IMPRESSION: BI-RAD 1 NEGATIVE There is no mammographic evidence of malignancy. A 1 year screeningmammogram is recommended. The patient has been or will be contacted. We recommend annual screening mammography for women at average risk ofbreast cancer beginning at age 40, based on guidelines of the [place] [employer] (ACR Practice Parameter for the Performance of Screening and Diagnostic Mammography) and [place] [employer]nec[employer]. For women with an elevated risk of breast cancer, pleaserefer to the ACR Practice Parameter for specific screening recommendations. The patient will be entered into a reminder system with a target due dateof 1 year for her next screening exam. Electronically signed by: Rich Ortega M.D., md/lex:11/23/2018 09:33:37 Materials Intern: Homa CHEN(Elana)(Raquel), [facility] letter sent: Normal Exam Reading location: BI-RADS: 1 Negative REPORT ELECTRONICALLY SIGNED IN OTHER VENDOR SYSTEM Beau Clement MD IMG MAMMO PROCEDURES Final Result * GENERAL RADIOLOGY REPORT (11/23/2018 12:00 AM CDT) Anatomical Region Laterality Modality Radiographic Maya ging Narrative 11/23/2018 12:00 AM CDT Ordered by an unspecified provider. Historical Provider IMFreddy XR PROCEDURES Final R esult documented in this encounter Visit Diagnoses Not on filedocumented in this encounter Care Teams Calender Worker Helper Relationship Specialty Start Date End Date Beau Clement MD [address] [place] [address] PCP - Essence Attributed PCP 03/08/17 Beau Clement MD [address] [place] [address] PCP - General Family Medicine 07/13/18 documented as of this encounter
--- OUTSIDE RECORDS SUMMARY | 2024-03-18 22:43 | XMS_ITS | Encounter Summary ---
Author Organization [facility] Address [address] [facility] [address] [place] [address] Care Team Providers Care Director Media Name Role Phone Beau Clement MD Unavailable + [phone] Beau Clement MD Primary Care Provid er Reason for Visit * Reason Comments Mass [id number]. patient st prather she has a spot on the left side of her face that is concerning. patient states spot is getting bigger and turning white. 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 Gender Identity Female 08/22/2019 6:09 AM CDT Sexual Orientation Straight 08/22/2019 6: 09 AM CDT documented as of this encounter Last Filed Vital Signs Vital Sign Reading Time Taken Comments Blood Pressure 126/68 09/27/2019 7:40 AM CDT Pulse 57 09/27/2019 7:40 AM CDT Temperature 36.8 ??C (98.2 ??F) 09/27/2019 7:40 AM CD T Respiratory Rate 16 09/27/2019 7:40 AM CDT Oxygen Saturation 98% 09/27/2019 7:40 AM CDT Inhaled Oxygen Concentration - - Weight 58 kg (127 lb 12.8 oz) 09/27/2019 7:40 AM CDT Height 157.5 cm (5' 2 ) 09/27/2019 7:40 AM CDT Body Mass Index 23.37 09/27/2019 7:40 AM CDT documented in this encounter Progress Notes * Beau Clement MD - 09/27/2019 8:00 AM CDT Subjective/Objective Patient ID: Dottie Bryant is a 74 y.o. female. Chief Complaint Chief Complaint Patient presents with ??? Mass [id number]. patient states she has a spot on the left side of her face that is concerning. patient states spot is getting bigger and turning white. HPI The patient is here today for evaluation of a skin lesion on her left mandaen. She reports that hassbeen there about 2-3 months, and very slowly getting larger. She feels that it is getting crustier as well. He denies any similar history in the past. She denies any history of extensive sun exposure other skin problems. The patient's past medical history, surgical history, family history, and social history were reviewed today. Review of Systems Constitutional: Negative for activity change, appetite change, fatigue and fever. HENT: Negative for congestion, ear pain, rhinorrhea and sore throat. Eyes: Negative for discharge and visual disturbance. Respiratory: Negative for cough, shortness of breath and wheezing. Cardiovascular: Negative for chest pain and palpitations. Musculoskeletal: Negative for arthralgias, joint swelling and myalgias. Skin: Negative for rash. See HPI Neurological: Negative for dizziness, weakness, light-headedness and headaches. Physical Exam Vitals signs and nursing note reviewed. Constitutional: Appearance: She is well-developed. HENT: Head: Normocephalic and atraumatic. Right Ear: External ear normal. Left Ear: External ear normal. Nose: Nose normal. Eyes: Conjunctiva/sclera: Conjunctivae normal. Pupils: Pupils are [...] Normal range of motion. General: No deformity. Skin: General: Skin is warm and dry. Findings: Lesion (6 x 4mm AK left mandaen) present. No rash. Neurological: Mental Status: She is alert and oriented to person, place, and time. Motor: No abnormal muscle tone. Coordination: Coordination normal. Gait: Gait normal. Psychiatric: Behavior: Behavior normal. Thought Content: Thought content normal. Judgment: Judgment normal. Assessment/Plan Diagnoses and all orders for this visit: Actinic keratosis (Primary) I discussed the diagnosis, prognosis, and treatment options with the patient including liquid nitrogen, shave biopsy, or watchful waiting. She elects to proceed with the liquid nitrogen treatment. The risks, benefits, potential adverse effects of the treatment were discussed. The lesion was frozen with liquid nitrogen. In care instructions were given. documented in this encounter Plan of Treatment Not on file documented as of this encounter Visit Diagnoses Diagnosis Actinic keratosis- Primary documented in this encounter Care Teams Director Media Relationship Specialty Start Date End Date Beau Clement MD [address] [place] [address] PCP - Essence Attributed PCP 03/08/17 Beau Clement MD [address] [place] [address] PCP - General Family Medicine 07/13/18 documented as of this encounter
--- OUTSIDE RECORDS SUMMARY | 2024-03-18 22:43 | XMS_ITS | Encounter Summary ---
Author Organization [facility] Address [address] [facility] [address] [place] [address] Care Team Providers Care Svp Of Digital Name Role Phone Beau Clement MD Unavailable + [phone] Beau Clement MD Primary Care Provid er Reason for Visit * Reason Onset Date Comments appt sched 09-25-19 Essence 07/17/2019 Encounter Details Date Type Department Care Team (Late st Contact Info) Description 07/17/2019 Telephone [facility] Family Medicine [address] [phone] Beau Clement MD [address] [address] appt sched 09-25-19 Essence Social History Tobacco Use Types Packs/Day Years Used Date Smoking Tobacco: Never Smokeless Tobacco: Never Alcohol Use Standard Drinks/Week Comments Not Currently 0 (1 standard drink = 0.6 oz pur e alcohol) Comments No Sex and Gender Information Value Date Recorded Sex Assigned at Not on file Legal Sex Female 8:34 AM CLOTH 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 Please place referral in chart for Dr. Tino Puckett, Ophthalmology, H26.9. * Telephone Encounter - Jennifer Huizar - 07/17/2019 10:[address] Puckett for cataracts 09-25-19, 8am fx [phone] Edgard [phone] documented in this encounter Plan of Treatment Not on file documented as of this encounter Visit Diagnoses Not on filedocumented in this encounter Care Teams Svp Of Digital Relationship Specialty Start Date End Date Beau Clement MD [address] [place] [address] PCP - Essence Attributed PCP 03/08/17 Beau Clement MD [address] [place] [address] PCP - General Family Medicine 07/13/18 documented as of this encounter
--- OUTSIDE RECORDS SUMMARY | 2024-03-18 22:43 | XMS_ITS | Encounter Summary ---
Author Organization [facility] Healthcare Address [address] [place] [address] Care Team Providers Care Catering Sous Chef Name Role Phone Beau Clement MD Unavailable [phone] Encounter Details Date Type Department Care Team (Latest Contact Info) Description 07/20/2017 7:50 AM CDT [facility] [address] [address] Onychogryphosis; Hyperlipidemia; Essential (primary) hypertension; Asymptomatic menopausal state; Other specified disorders of bone density and structure, multiple sites Social History Tobacco Use Types Packs/Day Years Used Date Smoking Tobacco: Never Assessed Comments Unknown Sex and Gender Information Value Date Recorded Sex Assigned at Not on file 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 Gender Identity Female 08/22/2019 6:09 AM CDT Sexual Orientation Straight 08/22/2019 6: 09 AM CDT documented as of this encounter Plan of Treatment Not on file documented as of this encounter Procedures Procedure Name Priority Date/Time Associated Diagnosis Comments CBC WITH AUTO DIFFERENTIAL Routine 07/20/2017 9:25 AM CDT LIPID PANEL Routine 07/20/2017 9:25 AM CDT COMPREHENSIVE METABOLIC PANEL Routine 07/20/2017 9:25 AM CDT DEXA AXIAL SKELETON BONE DENSITY 1 OR MORE SITES Routine 07/20/2017 7:51 AM CDT GENERAL RADIOLOGY REPORT 07/20/2017 12:00 AM CDT documented in this encounter Results * CBC with auto differential (07/20/2017 9:25 AM CDT) WBC 8.3 3.5 - 10.5 x10 3/ul 07/20/2017 10:36 AM CDT [employer] HISTORICAL RESULTS RBC 3.95 3.76 - 4.80 x10 6/ul 07/20/2017 10:36 AM CDT [employer] HISTORICAL RESULTS Hemoglobin 12.1 11.0 - 15.0 g/dL 07/20/2017 10:36 AM CDT [employer] HISTORICAL RESULTS Hct 37.9 33.0 - 43.0 % 07/20/2017 10:36 AM CDT [employer] HISTORICAL RESULTS MCV 95.9 80.0 - 97.0 fl 07/20/2017 10:36 AM CDT [employer] HISTORICAL RESULTS MCH 30.6 27.0 - 31.2 pg 07/20/2017 10:36 AM CDT [employer] HISTORICAL RESULTS MCHC 31.9 31.8 - 35.4 g/dl 07/20/2017 10:36 AM CDT [employer] HISTORICAL RESULTS RDW 12.9 11.6 - 14.8 % 07/20/2017 10:36 AM CDT [employer] HISTORICAL RESULTS Plt Count 352 150 - 450 X10 3/ul 07/20/2017 10:36 AM CDT [employer] HISTORICAL RESULTS MPV 9.1 7.4 - 10.4 fl 07/20/2017 10:36 AM CDT [employer] HISTORICAL RESULTS Neut % 59.8 37.0 - 85.0 % 07/20/2017 10:36 AM CDT [employer] HISTORICAL RESULTS Immature Gran % 0.4 0.0 - 3.0 % 07/20/2017 10:36 AM CDT [employer] HISTORICAL RESULTS Lymph % 24.1 5.0 - 45.0 % 07/20/2017 10:36 AM CDT [employer] HISTORICAL RESULTS Edgar % 9.6 3.0 - 15.0 % 07/20/2017 10:36 AM CDT [facility] HISTORICAL RESULTS Eos % 4.9 0.0 - 7.0 % Baso % 1.2 0.0 - 2.0 % Absolute Neuts (auto) 5.0 1.7 - 8.7 x10 3/ul Immature Gran # 0.0 0.0 - 0.3 x10 3/ul Absolute Lymphs (auto) 2.0 0.2 - 4.6 x10 3/ul Absolute Monos (auto) 0.8 0.1 - 1.5 x10 3/ul Absolute Eos (auto) 0.4 0.0 - 0.7 x10 3/ul Absolute Basos (auto) 0.1 0.0 - 0.2 x10 3/ul Nucleat RBC Rel Count 0.0 0 - 3 #/100WBC Absolute Nucleated RBC 0.00 x10 3/ul Absolute Neutrophils 5000 200 - 8000 /ul 07/20/2017 9:25 AM CDT 07/20/2017 9:48 AM CDT us Vick Grayson DPM LAB BLOOD ORDERABLES Final Result [facility] HISTORICAL RESULTS * (ABNORMAL) Lipid panel (07/20/2017 9:25 AM CDT) [facility] Signature Triglycerides 82 0 - 149 mg/dL 07/20/2017 11:02 AM T [facility] HISTORICAL RESULTS Comment: National Lipid Association/NCEP Guidelines: ?? Normal ?< 150 mg/dL ?? Borderline high ?? 150-199 mg/dL ?? High ?200-499 mg/dL ?? Very High ? >=500 mg/dL Cholesterol 207(H) 0 - 199 mg/dL 07/20/2017 11:02 AM T [facility] HISTORICAL RESULTS Comment: National Lipid Association/NCEP Guidelines: Desirable ? < 200 mg/dL Borderline high: ??200-239 mg/dL High Risk: ?>=240 mg/dL HDL Cholesterol 107 mg/dL 8 11:02 AM [facility] HISTORICAL RESULTS Comment: Reference Ranges: ? Males: >=40 mg/dL ? Females: >=50 mg/dL LDL Cholesterol, Calc 84 0 - 129 mg/dL 07/20/2017 11:02 AM T [facility] HISTORICAL RESULTS Comment: National Lipid Association/NCEP Guidelines: ??Optimal ? < 100 mg/dL ??Near Optimal ?100-129 mg/dL ??Borderline high 130-159 mg/dL ??High ?>=160 mg/dL Cholesterol/HDL Ratio 1.9 Comment: Optimal ??< 3.5:1 High ? > 5:1 07/20/2017 9:25 AM CDT 07/20/2017 9:48 AM CDT us Karey King MD LAB BLOOD ORDERABLES Fi nal Result [facility] HISTORICAL RESULTS * (ABNORMAL) Comprehensive metabolic panel (07/20/2017 9:25 AM CDT) Sodium 142 135 - 145 mmol/L 07/20/2017 11:02 AM T [facility] HISTORICAL RESULTS Potassium 4.1 3.3 - 5.1 mmol/L Chloride 103 96 - 108 mmol/L Carbon Dioxide 27 22 - 32 mmol/L Anion Gap 12 7 - 16 Glucose 103(H) 70 - 100 mg/dL BUN 15 8 - 23 mg/dL Creatinine 0.7 0.5 - 1.1 mg/dL Comment: NOTE: Estimated GFR (Cockroft-Gault) will NOT be calculated unless patient Height and Weight were entered. Also, Kidney Disease Stage (GFR) and Estimated GFR (Cockroft-Gault) will NOT be calculated if Creatinine result is <0.2. Kidney Disease Stage 88 mL/MIN Comment: NOTE; ??The GFR is an estimated value using the creatinine, sex, age, and race of the patient. THE Estimated Kidney Disease GFR is validated for AGES 18-70 YEARS STAGE ?mL/Min ?DESCRIPTION ??1 ?90 mL/min or more ?Normal or elevated GFR ??2 ? 60-89 mL/min ?Mildly decreased GFR ??3 ? 30-59 mL/min ?Moderately decreased GFR ??4 ? 15-29 mL/min ?Severely decreased GFR ??5 ? <15 mL/min ? Kidney failure or on dialysis @ Calcium 9.4 8.8 - 10.2 mg/dL Total Protein 7.1 6.4 - 8.3 g/dL Albumin 4.0 3.5 - 5.2 g/dL Globulin 3.1 2.3 - 3.5 gm/dL Albumin/Globulin Ratio 1.3 1.1 - 1.8 Total Bilirubin 0.4 0.0 - 1.2 mg/dL AST 28 0 - 32 U/L ALT 22 0 - 33 U/L Alkaline Phosphatase 51 35 - 104 U/L 07/20/2017 9:25 AM CDT 07/20/2017 9:48 AM CDT us Karey King MD LAB BLOOD ORDERABLES Fi nal Result [facility] HISTORICAL RESULTS * Dexa Axial Skeleton Bone Density 1 or 2 Site (07/20/2017 7:51 AM CDT) Anatomical Region Laterality Modality Body N/A Radiographic Maya ging 07/20/2017 7:51 AM CDT Impressions 07/20/2017 9:06 AM CDT ??Low bone mass. Bone mineral density: ??Normal (T-score above or [...] THIS IS AN ELECTRONICALLY VERIFIED FINAL REPORT 07/20/2017 9:03 AM - Electronically signed by Dc Mohamud M.D. RB: ZULEYKA D: ??07/20/2017 9:03 AM T: ??07/20/2017 9:03 AM Report ID: [id number] Reading Location: ??[id number] [EOD] Narrative 07/20/2017 9:06 AM CDT EXAM DESCRIPTION: ??Bone Density Hip/Spine (STD) COMPLETED DATE/TIME: ??07/20/2017 8:36 am REASON FOR STUDY: ??72 y/o ??year old postmenopausal white female with given history of osteopenia. 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 ??Has taken calcium. ??Performs regular weight-bearing exercise. ??Regularly consumes dairy products. ??Drinks caffeinated beverages. COMPARISON: ??None available. This will serve as a new baseline. ??Acquisition of a new DXA machine precludes comparison with older exams due to differences in scan type. FINDINGS: AP LUMBAR SPINE L1-L4: Total BMD is 1.215 g/cm2 T-score is 1.5 Measured BMD is thought to be spuriously elevated due to facet arthropathy. LEFT HIP: Total BMD is 0.688 g/cm2 T-score is -2.1 Femoral neck BMD is 0.602 g/cm2 T-score is -2.2 Fracture risk assessment (FRAX): 10 year risk for a major osteoporotic fracture is 12 % 10 year risk for a hip fracture is 2.7 % The FRAX tool has not been validated in patients currently or previously treated with pharmacotherapy for osteoporosis. ??In such patients, clinical judgement must be exercised in interpreting FRAX scores as the fracture risk may be overestimated. Procedure Note Provider, MD Anny - 07/24/2020 EXAM DESCRIPTION: Bone Density Hip/Spine (STD) COMPLETED DATE/TIME: 07/20/2017 8:36 am REASON FOR STUDY: 72 y/o year old postmenopausal white female with given history of osteopenia. Painter Rough/Model: Poup A (S/N [id number]) CLINICAL INFORMATION: Current height: 62.5 inches Maximum height: 63 inches Weight: 125 pounds Risk factors: None. Has taken calcium. Performs regular weight-bearing exercise. Regularly consumes dairy products. Drinks caffeinatedbeverages. COMPARISON: None available. This will serve as a new baseline. Acquisition of a new DXA machineprecludes comparison with older exams due to differences in scan type. FINDINGS: AP LUMBAR SPINE L1-L4: Total BMD is 1.215 g/cm2 T-score is 1.5 Measured BMD is thought to be spuriously elevated due to facetarthropathy. LEFT HIP: Total BMD is 0.688 g/cm2 T-score is -2.1 Femoral neck BMD is 0.602 g/cm2 T-score is -2.2 Fracture risk assessment (FRAX): 10 year risk for a major osteoporotic fracture is 12 % 10 year risk for a hip fracture is 2.7 % The FRAX tool has not been validated in patients currently or previously treated with pharmacotherapy for osteoporosis. In such patients, clinical judgement must be exercised in interpreting FRAX scores as the fracturerisk may be overestimated. IMPRESSION: Low bone mass. Bone mineral density: Normal (T-score above or [...] THIS IS AN ELECTRONICALLY VERIFIED FINAL REPORT 07/20/2017 9:03 AM - Electronically signed by Dc Mohamud M.D. RB: ZULEYKA Report ID: [id number] Reading Location: [place] [address] [EOD] Karey King MD IMG DXA PROCEDURES Blanca l Result * GENERAL RADIOLOGY REPORT (07/20/2017 12:00 AM CDT) Anatomical Region Laterality Modality Radiographic Maya ging Narrative 07/20/2017 12:00 AM CDT Ordered by an unspecified provider. Historical Provider IMG XR PROCEDURES Final R esult documented in this encounter Visit Diagnoses Diagnosis Onychogryphosis Other specified disease of nail Hyperlipidemia Other and unspecified hyperlipidemia Essential (primary) hypertension Unspecified essential hypertension Asymptomatic menopausal state Other specified disorders of bone density and structure, multiple sites documented in this encounter Care Teams Catering Sous Chef Relationship Specialty Start Date End Date Beau Clement MD [address] [place] [address] PCP - Essence Attributed PCP 03/08/17 documented as of this encounter
--- OUTSIDE RECORDS SUMMARY | 2024-03-18 22:43 | XMS_ITS | Encounter Summary ---
Author Organization [facility] Address [address] [facility] [address] [place] [address] Care Team Providers Care Blender Operator Name Role Phone Beau Clement MD Unavailable + [phone] Beau Clement MD Primary Care Provid er Reason for Visit * Reason Comments Annual Exam Encounter Details Date Type Department Care Team (Late st Contact Info) Description 11/02/2018 2:00 PM CDT Office Visit [facility] Family Medicine [address] [phone] Beau Clement MD [address] [address] Encounter for Medicare annual wellness exam (Primary Dx); Essential (primary) hypertension; Dyslipidemia; Osteopenia of multiple sites; Vitamin D deficiency; Breast screening; Depression screening; At low risk for fall Social History Tobacco Use Types Packs/Day Years Used Date Smoking Tobacco: Never Smokeless Tobacco: Never Alcohol Use Standard Drinks/Week Comments Not Currently 0 (1 standard drink = 0.6 oz pur e alcohol) Comments No Sex and Gender Information Value Date Recorded Sex Assigned at Not on file 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 Gender Identity Female 08/22/2019 6:09 AM CDT Sexual Orientation Straight 08/22/2019 6: 09 AM CDT documented as of this encounter Last Filed Vital Signs Vital Sign Reading Time Taken Comments Blood Pressure 136/80 11/02/2018 1:38 PM CDT Pulse 72 11/02/2018 1:38 PM CDT Temperature 36.2 ??C (97.2 ??F) 11/02/2018 1:38 PM CD T Respiratory Rate 18 11/02/2018 1:38 PM CDT Oxygen Saturation 98% 11/02/2018 1:38 PM CDT Inhaled Oxygen Concentration - - Weight 58.9 kg (129 lb 14.4 oz) 11/02/2018 1:38 PM CDT Height 157.5 cm (5' 2 ) 11/02/2018 1:38 PM CDT Body Mass Index 23.76 11/02/2018 1:38 PM CDT documented in this encounter Progress Notes * Beau Clement MD - 11/02/2018 2:00 PM CDT Images from the original note were not included. MEDICARE ANNUAL WELLNESS VISIT Dottie Bryant Chief complaint: Annual Exam HPI: The patient is here today for an annual physical. She has no complaints. She is sleeping well and wakes refreshed. She has a good appetite and eats a healthy diet. She denies any bowel problems. She denies any bladder problems. She exercises regularly, walking at least 30-60 minutes most days of the week. History reviewed. No pertinent past medical history. Past Surgical History: Procedure Laterality Date ??? SECTION ??? EYE SURGERY 2018 Family History Problem Relation Age of Onset ??? Heart attack Mother ??? Heart attack Father ??? Diabetes Son Social History Socioeconomic History ??? Marital status: Unknown Spouse name: Not on file ??? Number of children: Not on file ??? Years of education: Not on file ??? Highest education level: Not on file Occupational History ??? Not on file Social Needs ??? Financial resource strain: Not on file ??? Food insecurity: Worry: Not on file Inability: Not on file ??? Transportation needs: Medical: Not on file Non-medical: Not on file Tobacco Use ??? Smoking status: Never Smoker ??? Smokeless tobacco: Never Used Substance and Sexual Activity ??? Alcohol use: Not Currently ??? Drug use: Never ??? Sexual activity: Not on file Lifestyle ??? Physical activity: Days per week: Not on file Minutes per session: Not on file ??? Stress: Not on file Relationships ??? Social connections: Talks on phone: Not on file Gets together: Not on file Attends restorationist service: Not on file Active member of club or organization: Not on file Attends meetings of clubs or organizations: Not on file Relationship status: Not on file ??? Intimate partner violence: Fear of current or ex partner: Not on file Emotionally abused: Not on file Physically abused: Not on file Forced sexual activity: Not on file Other Topics Concern ??? Not on file Social History Narrative ??? Not on file Allergies: Allergies Allergen Reactions ??? Celecoxib Other (See comments) Reaction: Current Medications: Outpatient Encounter Medications as of 11/02/2018 Medication Sig Dispense Refill ??? alendronate (FOSAMAX) 70 mg tablet TAKE 1 TABLET BY MOUTH ONCE PER WEEK 12 tablet 0 ??? aspirin (ASPIRIN LOW DOSE) 81 mg enteric coated tablet 81 mg daily ??? atorvastatin (LIPITOR) 10 mg tablet Take 1 tablet (10 mg total) by mouth daily 90 tablet 3 ??? biotin 5 mg tablet daily ??? calcium carbonate/vitamin D3 (CALCIUM 500 + D ORAL) 2 (two) times a day ??? folic acid (FOLVITE) 800 mcg tablet Take 400 mcg by mouth daily ??? metoprolol XL (TOPROL-XL) 25 mg 24 hr tablet Take 1 tablet (25 mg total) by mouth daily 90 tablet 3 ??? multivitamin capsule Take 1 capsule by mouth daily ??? zinc gluconate 50 mg tablet Take 50 mg by mouth daily No facility-administered encounter medications on file as of 11/02/2018. Review of Systems Constitutional: Negative for activity [...] The patient is not nervous/anxious. Vitals: Vitals: 11/02/18 1338 BP: 136/80 BP Location: Left arm Patient Position: Sitting Pulse: 72 Resp: 18 Temp: 36.2 ??C (97.2 ??F) TempSrc: Oral SpO2: 98% Weight: 58.9 kg (129 lb 14.4 oz) Height: 157.5 cm (5' 2 ) Physical Exam Constitutional: She is oriented to person, place, and time. She appears well- developed and well-nourished. No distress. HENT: Head: Normocephalic and atraumatic. Right Ear: Tympanic membrane, external ear and ear canal normal. Left Ear: Tympanic membrane, external ear and ear canal normal. Nose: Nose normal. No rhinorrhea. Mouth/Throat: Uvula is midline, oropharynx is clear and moist and mucous membranes are normal. No posterior oropharyngeal edema or posterior oropharyngeal erythema. Eyes: Pupils are equal, round, and reactive to light. Conjunctivae and EOM are normal. Neck: Normal range of motion. Neck supple. No JVD present. Carotid bruit is not present. No thyroidmass and no thyromegaly present. Cardiovascular: Normal rate, regular rhythm and normal heart sounds. Exam reveals no gallop and no friction rub. No murmur heard. Pulmonary/Chest: Effort normal and breath sounds normal. She has no wheezes. Abdominal: Soft. Bowel sounds are normal. She exhibits no distension and no mass. There is no tenderness. Musculoskeletal: Normal range of motion. She exhibits no edema or deformity. Lymphadenopathy: She has no cervical adenopathy. Neurological: She is alert and oriented to person, place, and time. She displays normal reflexes. No cranial nerve deficit. She exhibits normal muscle tone. Coordination and gait normal. Skin: Skin is warm and dry. Capillary refill takes less than 2 seconds. No rash noted. Psychiatric: She has a normal mood and affect. Her behavior is normal. Judgment and thought contentnormal. Nursing note and vitals reviewed. Depression Screen: PHQ Screening PHQ 2 score 0 PHQ 9 score 0 Anxiety screen: RYLIE-7 score 0 Audio/Visual screen: (only for Welcome to Medicare [...] records? No Advanced Directive Durable Power of Wood Mill Supervisor: No Living Will: No Care Team Providers: Patient Care Team: Beau Clement MD as PCP - General (Family Medicine) Beau Clement MD as PCP - Essence Attributed PCP [facility] [place], [place] - [address] [facility] [id number] Counseling and Referral of Preventative Services: Please see patient instructions section for recommendations for appropriate screening and monitoring guidelines. Health Maintenance: Health Maintenance Topics with due status: Overdue Topic Date Due Fall Risk Assessment 1946 Depression Screening-PHQ 1945 Regular Well Visit/Exam 1945 Breast Cancer Screening-Mammogram 1945 Osteoporosis Screening-Bone Density Scan 1946 Colon Cancer Screening-Colonoscopy 1945 DTaP/Tdap/Td Vaccine 1957 Pneumococcal (PCV13 & PPSV23) 65+ yrs 07/11/2011 Health Maintenance Topics with due status: Due Soon Topic Date Due Influenza Vaccine 11/06/2018 Health Maintenance Topics with due status: Completed [...] annual wellness exam (Primary) Essential (primary) hypertension - Lipid panel; Future - Comprehensive metabolic panel; Future - CBC with auto differential; Future - Microalbumin, urine, random; Future Dyslipidemia Osteopenia of multiple sites Vitamin D deficiency Breast screening - SCREENING MAMMOGRAM BILATERAL W MAURICIO; Future Depression screening At low risk for fall Plan: 1. Annual exam: Continue regular exercise. Continue healthy diet. Maintain healthy weight. Labs ordered. Good health and prevention strategies discussed. Colonoscopy last performed 2013; due in 2023 2. Hypertension: Low-sodium diet. Continue regular exercise. Continue healthy weight. Continue metoprolol XL 25 mg daily. Labs ordered. 3. Dyslipidemia: Continue atorvastatin 10 mg daily. Continue healthy diet. Continue regular exercise. Maintain healthy weight. Labs ordered. 4. Osteopenia: Continue regular weight-bearing exercise. Continue calcium and vitamin-D supplementation. Continue Fosamax. 5. Vitamin-D deficiency: Continue supplementation. 6. Breast cancer screening: Mammogram ordered; last one was performed in 2016. 7. Depression screening: PHQ 2 in PHQ 9 were both negative. 8. Fall risk: Good balance. Good strength. No history of falls. At low risk of falling. documented in this encounter Plan of Treatment Not on file documented as of this encounter Procedures Procedure Name Priority Date/Time Associated Diagnosis Comments ALBUMIN, RANDOM URINE WITHOUT CREATININE Routine 11/03/2018 8:05 AM CDT Essential (primary) hypertension CBC WITH AUTO DIFFERENTIAL Routine 11/03/2018 8:02 AM CDT Essential (primary) hypertension LIPID PANEL Routine 11/03/2018 8:02 AM CDT Essential (primary) hypertension COMPREHENSIVE METABOLIC PANEL Routine 11/03/2018 8:02 AM CDT Essential (primary) hypertension documented in this encounter Results * Microalbumin, urine, random (11/03/2018 8:05 AM CDT) Ur Random Creatinine 106.0 mg/dL [facility] Comment: Random Urine: No established Reference Interval exists Reference Range First morning urine: Females 28 - 217 mg/dL U Random Total Protein 8 mg/dL [facility] Comment: Random Urine: No established Reference Interval exists Ur Random Microalbumin <12.0 0.0 - 19.9 mg/L [facility] Comment: Microalbumin is <12. Microalb/creat will not be calculated [place] Diabetes Association Guidelines Microalbuminuria: 30-300 ug albumin /mg creatinine Clinical Albuminuria: >300 ug albumin /mg creatinine Urine 11/03/2018 8:05 AM CDT 11/03/2018 8:50 AM CDT Narrative Resulting Agency Comment CLI Beau Clement MD LAB URINE ORDERABLES Final Result [facility] [address] [phone] * (ABNORMAL) CBC with auto differential (11/03/2018 8:02 AM CDT) [facility] WBC 7.1 3.8 - 9.9 X10 3/ul [facility] RBC 4.12 3.90 - 5.20 x10 6/ul [facility] Hemoglobin 13.0 11.9 - 15.5 g/dL [facility] Hct 40.7 35.6 - 45.5 % [facility] MCV 98.8(H) 81.3 - 96.[address] [facility] MCH 31.6 27.1 - 33.[address] [facility] MCHC 31.9(L) 32.3 - 35.7 g/dl [facility] RDW 13.8 11.1 - 14.9 % [facility] Plt Count 356 150 - 400 x10 3/ul [facility] MPV 9.1 9.1 - 12.[address] [facility] Neut % 48.6 % [facility] Immature Gran % 0.3 % [facility] Lymph % 33.3 % [facility] [place] % 11.4 % [facility] Eos % 5.1 % [facility] AUTO BASO % 1.3 % [facility] NEUTROPHIL ABS # 3.4 1.7 - 6.5 x10 3/ul [facility] Absolute Lymphs (auto) 2.4 0.8 - 3.3 x10 3/ul [facility] Absolute Monos (auto) 0.8 0.2 - 0.8 x10 3/ul [facility] Absolute Eos (auto) 0.4 0.0 - 0.5 x10 3/ul [facility] BASOPHIL ABS # 0.1 0.0 - 0.1 x10 3/ul [facility] Blood specimen (specimen) 11/03/2018 8:02 AM CDT 11/03/2018 8:50 AM CDT Narrative Resulting Agency Comment CLI us Beau Clement MD LAB BLOOD ORDERABLES Final Result [facility] [address] [place] [address], [facility] [phone] * (ABNORMAL) Comprehensive metabolic panel (11/03/2018 8:02 AM CDT) Sodium 142 135 - 145 mmol/L [facility] Potassium 4.7 3.3 - 5.1 mmol/L [facility] Chloride 104 96 - 108 mmol/L [facility] Carbon Dioxide 29 22 - 32 mmol/L [facility] Anion Gap 9 7 - [address] [facility] Glucose 102(H) 70 - 100 mg/dL [facility] BUN 14 8 - 25 mg/dL [facility] Creatinine 0.8 0.5 - 1.1 mg/dL [facility] Comment: NOTE: Estimated GFR (Cockroft-Gault) will NOT be calculated unless patient Height and Weight were entered. Also, Kidney Disease Stage (GFR) and Estimated GFR (Cockroft-Gault) will NOT be calculated if Creatinine result is <0.2. Kidney Disease Stage 75 mL/MIN [facility] Comment: NOTE; ??The GFR is an estimated [...] mL/min ? Kidney failure or on dialysis Calcium 10.1 8.6 - 10.3 mg/dL [facility] Total Protein 7.4 6.4 - 8.3 g/dL [facility] Albumin 4.1 3.5 - 5.0 g/dL [facility] Globulin 3.3 2.3 - 3.5 gm/dL [facility] Albumin/Globulin Ratio 1.2 1.1 - 1.[address] [facility] Total Bilirubin 0.4 0.0 - 1.2 mg/dL [facility] AST 28 0 - 32 U/L [facility] ALT 20 0 - 33 U/L [facility] Alkaline Phosphatase 59 35 - 104 U/L [facility] Blood specimen (specimen) 11/03/2018 8:02 AM CDT 11/03/2018 8:50 AM CDT Narrative Resulting Agency Comment CLI Beau Clement MD LAB BLOOD ORDERABLES Final Result Performing Organization Address City/[facility]/ZIP Co de Phone Number [facility] [address] [phone] * (ABNORMAL) Lipid panel (11/03/2018 8:02 AM CDT) Triglycerides 65 0 - 149 mg/dL [facility] Comment: National Lipid Association/NCEP Guidelines: ?? Normal ?< 150 mg/dL ?? Borderline high ?? 150-199 mg/dL ?? High ?200-499 mg/dL ?? Very High ? >=500 mg/dL Cholesterol 223(H) 0 - 199 mg/dL [facility] Comment: National Lipid Association/NCEP Guidelines: Desirable ? < 200 mg/dL Borderline high: ??200-239 mg/dL High Risk: ?>=240 mg/dL HDL Cholesterol 117 mg/dL [facility] Comment: Reference Ranges: ? Males: >=40 mg/dL ? Females: >=50 mg/dL LDL Cholesterol, Calc 93 0 - 129 mg/dL [facility] Comment: National Lipid Association/NCEP Guidelines: ??Optimal ? < 100 mg/dL ??Near Optimal ?100-129 mg/dL ??Borderline high 130-159 mg/dL ??High ?>=160 mg/dL Cholesterol/HDL Ratio 1.[address] [facility] Comment: Optimal ??< 3.5:1 High ? > 5:1 Blood specimen (specimen) 11/03/2018 8:02 AM CDT 11/03/2018 8:50 AM CDT Narrative Resulting Agency Comment CLI Beau Clement MD LAB BLOOD ORDERABLES Final Result [address] [address], [facility] [phone] documented in this encounter Visit Diagnoses Diagnosis Encounter for Medicare annual wellness exam- Primary Essential (primary) hypertension Unspecified essential hypertension Dyslipidemia Other and unspecified hyperlipidemia Osteopenia of multiple sites Vitamin D deficiency Breast screening Breast screening, unspecified Depression screening At low risk for fall documented in this encounter Historical Medications * This list may reflect changes made after this encounter. calcium carbonate/vitamin D3 (CALCIUM 500 + D ORAL)Indications: supplement Take 1 tablet by mouth every morning aspirin 81 mg enteric coated tabletIndications :heart health Take 1 tablet (81 mg total) by mouth every morning multivitamin capsuleIndication s:Vitamin Deficiency Prevention Take 1 capsule by mouth every morning 11/27/2021 folic acid (FOLVITE) 800 mcg tablet Take 400 mcg by mouth daily 02/06/2020 zinc gluconate 50 mg tablet Take 50 mg by mouth daily 06/05/2019 biotin 5 mg tablet daily 08/22/2019 added in this encounter Care Teams Blender Operator Relationship Specialty Start Date End Date Beau Clement MD [address] [place] [address] PCP - Essence Attributed PCP 03/08/17 Beau Clement MD [address] [place] [address] PCP - General Family Medicine 07/13/18 documented as of this encounter
--- OUTSIDE RECORDS SUMMARY | 2024-03-18 22:43 | XMS_ITS | Encounter Summary ---
Author Organization [facility] Healthcare Address [address] [place] [address] Care Team Providers Care Dean For Student Affairs Name Role Phone Unavailable Primary Care Provider Unavailabl e Encounter Details Date Type Department Care Team (Latest Contact Info) Description 06/03/2015 8:19 AM CDT Hospital Encounter [facility] Raquel Garcia MD [address] [facility] [address] [address] Solitary pulmonary nodule Social History Tobacco Use Types Packs/Day Years Used Date Smoking Tobacco: Never Assessed Comments Unknown Sex and Gender Information Value Date Recorded Sex Assigned at Not on file 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 1. ??Stable sub 4 mm pulmonary nodules for 12 months. ??Fleischner Society guidelines recommend no further imaging follow-up in high and low risk patients. 2. ??Unchanged apical scarring changes in the atelectasis. 3. ??Similar thoracolumbar spondylosis. 4. ??Coronary artery and systemic atherosclerotic disease. THIS IS AN ELECTRONICALLY VERIFIED REPORT 06/03/2015 10:04 AM: ??Martin Molina M.D. Martin Molina M.D. HARRISON:harrison 10:04 AM 10:04 AM BM [EOD] Narrative 06/03/2015 10:08 AM CDT EXAMINATION: ??Post IV contrast CT the chest. HISTORY: ??Spine seen on long in the right upper lobe. ??Rib fracture 1 year ago. ??Nasal congestion for 1 month. ??Nonsmoker. TECHNIQUE: ??Post IV contrast CT the chest. ??100 mL of Omnipaque 350 given in the left antecubital IV site. COMPARISON: ??CT the chest from 05/08/2014. ??On that CT there is bilateral apical lung opacities and a 3 mm pulmonary nodule in the right upper lobe am areas of nodularity in the left upper lobe. FINDINGS: ??3 mm pulmonary nodule in the right upper lobe seen on axial image 28 is unchanged since the prior study. ??A second 2-3 mm nodule in the superior fissure on the same image is also unchanged. ??Right lower lobe nodular densities measuring up to 3.5 mm are similar, axial image 43. No endotracheal or endobronchial lesion is identified. Bilateral apical scarring and atelectasis is similar to the prior study. No focal consolidation, pneumothorax, or pleural effusion. The great vessels are within normal limits for size. ??There is systemic and coronary artery atherosclerotic disease. Limited imaging of the upper abdomen is unremarkable. There are no suspicious osseous lesions. ??There are modic type changes at the L1-L2 level with severe degenerative intervertebral disease. Procedure Note Provider, MD Anny - 07/24/2020 EXAMINATION: Post IV contrast CT the chest. HISTORY: Spine seen on long in the right upper lobe. Rib fracture 1 year ago. Nasal congestion for 1 month. Nonsmoker. TECHNIQUE: Post IV contrast CT the chest. 100 mL of Omnipaque 350 givenin the left antecubital IV site. COMPARISON: CT the chest from 05/08/2014. On that CT there is bilateralapical lung opacities and a 3 mm pulmonary nodule in the right upper lobe amareas of nodularity in the left upper lobe. FINDINGS: 3 mm pulmonary nodule in the right upper lobe seen on axialimage 28 is unchanged since the prior study. A second 2-3 mm nodule in thesuperior fissure on the same image is also unchanged. Right lower lobe nodular densities measuring up to 3.5 mm are similar, axial image 43. No endotracheal or endobronchial lesion is identified. Bilateral apical scarring and atelectasis is similar to the prior study.No focal consolidation, pneumothorax, or pleural effusion. The great vessels are within normal limits for size. There is systemicand coronary artery atherosclerotic disease. Limited imaging of the upper abdomen is unremarkable. There are no suspicious osseous lesions. There are modic type changes atthe L1-L2 level with severe degenerative intervertebral disease. IMPRESSION: 1. Stable sub 4 mm pulmonary nodules for 12 months. Fleischner Society guidelines recommend no further imaging follow-up in high and low risk patients. 2. Unchanged apical scarring changes in the atelectasis. 3. Similar thoracolumbar spondylosis. 4. Coronary artery and systemic atherosclerotic disease. THIS IS AN ELECTRONICALLY VERIFIED REPORT 06/03/2015 10:04 AM: Martin Molina M.D. Martin Molina M.D. HARRISON:harrison 10:04 AM 10:04 AM [facility] [EOD] Raquel Goff MD IMG CT PROCEDURES Final Result documented in this encounter Visit Diagnoses Diagnosis Solitary pulmonary nodule documented in this encounter
--- OUTSIDE RECORDS SUMMARY | 2024-03-18 22:43 | XMS_ITS | Encounter Summary ---
Author Organization [facility] Care Team Providers Care Prism Inspector Name Role Phone Beau Clement MD Unavailable + [phone] Beau Clement MD Primary Care Provid er Encounter Details Date Type Department Care Team (Latest Contact Info) Description 11/02/2018 Travel Social History Tobacco Use Types Packs/Day Years Used Date Smoking Tobacco: Never Smokeless Tobacco: Never Alcohol Use Standard Drinks/Week Comments Not Currently 0 (1 standard drink = 0.6 oz pur e alcohol) Comments No Sex and Gender Information Value Date Recorded Sex Assigned at Not on file 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
--- OUTSIDE RECORDS SUMMARY | 2024-03-18 22:43 | XMS_ITS | Encounter Summary ---
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 Gender Identity Female 08/22/2019 6:09 AM CDT Sexual Orientation Straight 08/22/2019 6: 09 AM CDT documented as of this encounter Plan of Treatment Not on file documented as of this encounter Procedures Procedure Name Priority Date/Time Associated Diagnosis Comments EGFR Routine 09/10/2020 7:58 AM CDT Essential (primary) hypertension DIFFERENTIAL AUTO Routine 09/10/2020 7:5 8 AM CDT Essential (primary) hypertension CBC WITH AUTO DIFFERENTIAL Routine 09/10/2020 7:58 AM CDT Essential (primary) hypertension ALBUMIN CREATININE RATIO, URINE Routine 09/10/2020 7:58 AM CDT Essential (primary) hypertension LIPID PANEL Routine 09/10/2020 7:58 AM CDT Essential (primary) hypertension COMPREHENSIVE METABOLIC PANEL Routine 09/10/2020 7:58 AM CDT Essential (primary) hypertension documented in this encounter Results * eGFR (09/10/2020 7:58 AM CDT) [facility] eGFR 73 mL/min/1.7 3 m2 [facility] Comment: Interpretive Data Reference Interval Normal ?>/= 90 mL/min/1.73m2 Mildly decreased* ? 60 - 89 mL/min/1.73m2 Mildly to moderately decreased ?45 - 59 mL/min/1.73m2 Moderately to severely decreased ??30 - 44 mL/min/1.73m2 Severely decreased ?15 - 29 mL/min/1.73m2 Kidney Failure ?< 15 ??mL/min/1.73m2 *Relative to young adult level Estimated glomerular filtration rate is determined by the CKD-EPI equation recommended by the National Kidney Foundation (KDIGO 2012 Clinical Practice Guideline for the Evaluation and Management of Chronic Kidney Disease. Kidney Intnl Suppl Mar 2012;3:1). The CKD-EPI equation should not be used for patients with unstable renal function and has not been validated in children and those over 70. Current interpretive data was last reviewed 2020 Testing performed by: [facility], [address] [place] [address], [place]., [address] Blood specimen (specimen) 09/10/2020 7:58 AM CDT 09/10/2020 8:25 AM CDT Beau Clement MD LAB BLOOD ORDERABLES Final Result THAO [address] [facility] Department [place] [address] * Differential, auto (09/10/2020 7:58 AM CDT) Neutrophil abs 2.9 1.7 - 6.5 K/cumm THAO Comment:Testing performed by : [address] [address] Imm gran abs 0.0 0.0 - 0.1 K/cumm THAO Comment:Testing performed by : [address] [address] Lymphocyte abs 2.0 0.8 - 3.3 K/cumm THAO Comment:Testing performed by : [address] [address] Monocyte abs 0.6 0.2 - 0.8 K/cumm THAO Comment:Testing performed by : [address] [address] Eosinophil abs 0.2 0.0 - 0.5 K/cumm THAO Comment:Testing performed by : [address] [address] Basophil abs 0.1 0.0 - 0.1 K/cumm THAO Comment:Testing performed by : [address] [address] Neutrophil pct 50.7 % THAO Comment: Interpretive Data Percent cell count reference ranges are not reported, since discordance with absolute values may lead to misinterpretation of CBC data. Current Interpretive Data was last revised on 2017. Testing performed by: [address] [address] Imm gran pct 0.3 % THAO Comment: Interpretive Data Percent cell count reference ranges are not reported, since discordance with absolute values may lead to misinterpretation of CBC data. Current Interpretive Data was last revised on 2017. Testing performed by: [address] [address] Lymphocyte pct 34.1 % TH[facility] Comment: Interpretive Data Percent cell count reference ranges are not reported, since discordance with absolute values may lead to misinterpretation of CBC data. Current Interpretive Data was last revised on 2017. Testing performed by: [address] [address] Monocyte pct 10.6 % THAO Comment: Interpretive Data Percent cell count reference ranges are not reported, since discordance with absolute values may lead to misinterpretation of CBC data. Current Interpretive Data was last revised on 2017. Testing performed by: [address] [address] Eosinophil pct 2.9 % THAO Comment: Interpretive Data Percent cell count reference ranges are not reported, since discordance with absolute values may lead to misinterpretation of CBC data. Current Interpretive Data was last revised on 2017. Testing performed by: [address] [address] Basophil pct 1.4 % THAO Comment: Interpretive Data Percent cell count reference ranges are not reported, since discordance with absolute values may lead to misinterpretation of CBC data. Current Interpretive Data was last revised on 2017. Testing performed by: [address] [address] Blood specimen (specimen) 09/10/2020 7:58 AM CDT 09/10/2020 8:25 AM CDT us Beau Clement MD LAB BLOOD ORDERABLES Final Result THAO [address] [facility] Department [place] [address] * Albumin Creatinine Ratio, Urine (09/10/2020 7:58 AM CDT) Albumin Ur <12.0 mg/L TAHO Comment: Interpretive Data No reference range established. Current interpretive data was last revised 2018. Testing performed by: [address] [address] Creatinine Ur 83.8 mg/dL [facility] FLORES Comment: Interpretive Data No reference range established. Current interpretive data was last revised 2018. Testing performed by: [address] [address] Albumin Creatinine Ratio, Ur <14 1 - 29 mg/g [facility]ORES Comment:Testing performed by : [address] [address] Urine 09/10/2020 7:58 AM CDT 09/10/2020 5:52 PM CDT us Beau Clement MD LAB URINE ORDERABLES Final Result Performing Organization Address City/State/[facility] Co de Phone Number THAO [address] [facility] Department [place] [address] * (ABNORMAL) Lipid panel (09/10/2020 7:58 AM CDT) Cholesterol 209(H) 30 - 199 mg/dL [facility] FLORES Comment: Interpretive Data Ages [...] last revised on 2017. Testing performed by: [address] [address] Triglycerides 55 <=149 mg/dL [facility] FLORES Comment: Interpretive Data [...] last revised on 2017. Testing performed by: [address] [address] HDL 114 >=40 mg/dL [facility] Comment: Interpretive Data Ages < or [...] last revised on 2017. Testing performed by: [address] [address] LDL, calculated 84 <=129 mg/dL [facility] Comment: Interpretive Data Ages < or [...] last revised on 2017. Testing performed by: [address] [address] Non-HDL Cholesterol 95 mg/dL [facility] FLORES Comment: Interpretive Data Ages [...] last revised on 2017. Testing performed by: [address] [address] Chol/HDL ratio 2 [facility]ORES Comment:Testing performed by : [address] [address] Blood specimen (specimen) 09/10/2020 7:58 AM CDT 09/10/2020 8:25 AM CDT us Beau Clement MD LAB BLOOD ORDERABLES Final Result Performing Organization Address City/State/[facility] Co de Phone Number THAO FLORES [address] [facility] Department [place] [address] * Comprehensive metabolic panel (09/10/2020 7:58 AM CDT) Sodium 141 135 - 145 mmol/L THAO Comment:Testing performed by : [address] [address] Potassium, pl 4.6 3.3 - 4.9 mmol/L THAO Comment:Testing performed by : [address], [place]., [address] Chloride 105 97 - 110 mmol/L THAO Comment:Testing performed by : [address], [place]., [address] CO2 28 22 - 32 mmol/L THAO Comment:Testing performed by : [address] [address] Anion gap 8 2 - 15 mmol/L THAO Comment:Testing performed by : [address], [place]., [address] BUN 11 8 - 25 mg/dL [facility] Comment:Testing performed by : [address], [place]., [address] Creatinine 0.80 0.60 - 1.10 mg/dL [facility] Comment:Testing performed by : [address] [address] Glucose 111 70 - 199 mg/dL [facility] Comment: Interpretive Data Fasting glucose >/= 126 [...] was last revised 2017. Testing performed by: [address] [address] Calcium 9.7 8.5 - 10.3 mg/dL [facility] Comment:Testing performed by : [address] [address] Bilirubin, total 0.4 0.1 - 1.2 mg/dL [facility]ORES Comment:Testing performed by : [address] [address] Protein, pl 7.0 6.5 - 8.5 g/dL [facility]ES Comment:Testing performed by : [address] [address] Albumin 4.1 3.5 - 5.0 g/dL THAO Comment:Testing performed by : [address] [address] Alk phos 55 40 - 130 Units/L THAO Comment:Testing performed by : [address] [address] ALT 15 7 - 45 Units/L THAO Comment:Testing performed by : [address] [address] AST 22 10 - 45 Units/L THAO Comment:Testing performed by : [address] [address] Blood specimen (specimen) 09/10/2020 7:58 AM CDT 09/10/2020 8:25 AM CDT Beau Clement MD LAB BLOOD ORDERABLES Final Result THAO [address] [facility] Department of Laboratories [place], [place] [id number] * (ABNORMAL) CBC with auto differential (09/10/2020 7:58 AM CDT) Pathologist [facility] WBC 5.8 3.8 - 9.9 K/cumm THAO FLORES Comment:Testing performed by : [address] [address] Hgb 12.7 11.9 - 15.5 g/dL [facility]ORES Comment:Testing performed by : [address] [address] Hct 39.4 35.6 - 45.5 % [facility]ORES Comment:Testing performed by : [address] [address] Plt 310 150 - 400 K/cumm THAO Comment:Testing performed by : [address] [address] MPV 8.9(L) 9.1 - 12.3 fL THAO Comment:Testing performed by : [address] [address] RBC 3.97 3.90 - 5.20 M/cumm THAO Comment:Testing performed by : [address] [address] MCV 99.2(H) 81.3 - 96.4 fL THAO Comment:Testing performed by : [address] [address] MCH 32.0 27.1 - 33.3 pg THAO Comment:Testing performed by : [address] [address] MCHC 32.2(L) 32.3 - 35.7 g/dL THAO Comment:Testing performed by : [address] [address] RDW CV 13.0 11.1 - 14.9 % THAO Comment:Testing performed by : [address] [address] RDW SD 47.3 35.7 - 48.1 fL THAO Comment:Testing performed by : [address] [address] NRBC abs 0.00 0.00 - 0.01 K/cumm THAO Comment:Testing performed by : [address] [address] Blood specimen (specimen) 09/10/2020 7:58 AM CDT 09/10/2020 8:25 AM CDT Beau Clement MD LAB BLOOD ORDERABLES Final Result [facility]AO [address] [facility] Department of Laboratories [place], [place] [id number] documented in this encounter Visit Diagnoses Diagnosis Essential (primary) hypertension Unspecified essential hypertension documented in this encounter Care Teams Elementary Reading Tutor Relationship Specialty Start Date End Date Beau Clement MD [address] [place] [address] PCP - Essence Attributed PCP 03/08/17 Beau Clement MD [address] [place] [address] PCP - General Family Medicine 07/13/18 documented as of this encounter
--- OUTSIDE RECORDS SUMMARY | 2024-03-18 22:43 | XMS_ITS | Encounter Summary ---
Author Organization [facility] Care Team Providers Care Agriculture Worker Name Role Phone Beau Clement MD Unavailable + [phone] Beau Clement MD Primary Care Provid er Encounter Details Date Type Department Care Team (Latest Contact Info) Description 06/05/2019 Travel Social History Tobacco Use Types Packs/Day Years Used Date Smoking Tobacco: Never Smokeless Tobacco: Never Alcohol Use Standard Drinks/Week Comments Not Currently 0 (1 standard drink = 0.6 oz pur e alcohol) Comments No Sex and Gender Information Value Date Recorded Sex Assigned at Not on file 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 No / Unsure 06/05/2019 10:00 AM CDT documented as of this encounter Plan of Treatment Not on file documented as of this encounter Visit Diagnoses Not on filedocumented in this encounter Care Teams Agriculture Worker Relationship Specialty Start Date End Date Beau Clement MD [address] [place] [address] PCP - Essence Attributed PCP 03/08/17 Beau Clement MD [address] [place] [address] PCP - General Family Medicine 07/13/18 documented as of this encounter
--- OUTSIDE RECORDS SUMMARY | 2024-03-18 22:43 | XMS_ITS | Encounter Summary ---
Author Organization [facility] Address [address] [facility] [address] [place] [address] Care Team Providers Care Account Manager Trainee Name Role Phone Beau Clement MD Unavailable + [phone] Beau Clement MD Primary Care Provid er Encounter Details Date Type Department Care Team (Late st Contact Info) Description 08/25/2019 Telephone [facility] Family Medicine [address] [phone] Sherlyn Lancaster MD [address] [address] Social History Tobacco Use Types Packs/Day Years Used Date Smoking Tobacco: Never Smokeless Tobacco: Never Alcohol Use Standard Drinks/Week Comments Not Currently 0 (1 standard drink = 0.6 oz pur e alcohol) Comments No Sex and Gender Information Value Date Recorded Sex Assigned at Not on file 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 Additional request for Dr. Trevino to read Echo also submitted and approved. Both scanned and faxed. * Telephone Encounter - Deborah Hamilton - 08/25/2019 9:47 AM CDT Referral to Cardiology (Dr. Stuart Garrett) Scheduled on 08-28-2019 @ 8:45AM documented in this encounter Plan of Treatment Not on file documented as of this encounter Visit Diagnoses Not on filedocumented in this encounter Care Teams Account Manager Trainee Relationship Specialty Start Date End Date Beau Clement MD [address] [place] [address] PCP - Essence Attributed PCP 03/08/17 Beau Clement MD [address] [place] [address] PCP - General Family Medicine 07/13/18 documented as of this encounter
--- OUTSIDE RECORDS SUMMARY | 2024-03-18 22:43 | XMS_ITS | Encounter Summary ---
Author Organization [facility] Healthcare Address [address] [place] [address] Care Team Providers Care Director Call Center Sales Name Role Phone Unavailable Primary Care Provider Unavailabl e Encounter Details Date Type Department Care Team (Latest Contact Info) Description 2015 8:19 AM CDT Hospital Encounter [facility] Guanaco Hicks MD [address] [facility] [address] [address] Varicose veins of right lower extremity with inflammation; Varicose veins of left lower extremity with inflammation Social History Tobacco Use Types Packs/Day Years Used Date Smoking Tobacco: Never Assessed Comments Unknown Sex and Gender Information Value Date Recorded Sex Assigned at Not on file 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 Gender Identity Female 08/22/2019 6:09 AM CDT Sexual Orientation Straight 08/22/2019 6: 09 AM CDT documented as of this encounter Plan of Treatment Not on file documented as of this encounter Procedures Procedure Name Priority Date/Time Associated Diagnosis Comments US VEIN DUPLEX LOWER EXTREMITY BILATERAL COMPLETE Routine 2015 12:00 AM CDT documented in this encounter Results * US Vein Duplex Lower Extremity Bilateral Complete (2015 12:00 AM CDT) Anatomical Region Laterality Modality Vascular Bilateral Ultrasound 2015 Narrative 2015 12:04 PM CDT DATE OF SERVICE: 2015 Bilateral lower extremity venous duplex. FINDINGS: ??The bilateral common femoral veins have spontaneous flow which is phasic and these vessels are compressible. ??The right great saphenous and left accessory saphenous veins are ablated. CONCLUSION: ??No evidence of deep venous thrombosis in the lower extremity status post endovenous laser ablation in bilateral lower extremities. NTS Job: [id number] Dictated By: Guanaco Hicks MD Dictated For: Guanaco Hicks MD [EOD] Procedure Note Provider, MD Anny - 07/24/2020 DATE OF SERVICE: 2015 Bilateral lower extremity venous duplex. FINDINGS: The bilateral common femoral veins have spontaneous flow whichis phasic and these vessels are compressible. The right great saphenousand left accessory saphenous veins are ablated. CONCLUSION: No evidence of deep venous thrombosis in the lower extremitystatus post endovenous laser ablation in bilateral lower extremities. NTS Job: [id number] Dictated By: Guanaco Hicks MD Dictated For: Guanaco Hicks MD [EOD] us Guanaco Hicks MD IMG US PROCEDURES Final Re sult documented in this encounter Visit Diagnoses Diagnosis Varicose veins of right lower extremity with inflammation Varicose veins of left lower extremity with inflammation documented in this encounter
--- OUTSIDE RECORDS SUMMARY | 2024-03-18 22:43 | XMS_ITS | Encounter Summary ---
Author Organization [facility] Healthcare Address [address] [place] [address] Care Team Providers Care Lath Tier Name Role Phone Unavailable Primary Care Provider Unavailabl e Encounter Details Date Type Department Care Team (Late st Contact Info) Description 08/27/2015 1:22 PM CDT Hospital Encounter 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 1. ??No acute osseous abnormality of the mandible. ??No overt radiographic changes of osteonecrosis. 2. ??Diminished osseous density. THIS IS AN ELECTRONICALLY VERIFIED REPORT 08/28/2015 9:18 AM: ??Leonard Patten M.D. ?? Leonard Patten M.D. CH:comfort 04:58 PM 08:00 AM BM [EOD] Narrative 08/28/2015 9:35 AM CDT EXAMINATION: ??Mandibular series History: ??Right-sided jaw pain for 1 week, on alendronate, assess for osteonecrosis. TECHNIQUE: ??AP, Urszula, right oblique, and left oblique views of the mandible were obtained. COMPARISON: ??None. FINDINGS: ??The mastoid air cells appear clear. ??No acute fracture of the mandible is seen. ??Relative diminished osseous density is noted. ??No overtly aggressive or lucent or sclerotic lesions are seen to suggest overt changes of osteonecrosis. Procedure Note Provider, MD Anny - 07/24/2020 EXAMINATION: Mandibular series History: Right-sided jaw pain for 1 week, on alendronate, assess for osteonecrosis. TECHNIQUE: AP, Urszula, right oblique, and left oblique views of themandible were obtained. COMPARISON: None. FINDINGS: The mastoid air cells appear clear. No acute fracture of the mandible is seen. Relative diminished osseous density is noted. Noovertly aggressive or lucent or sclerotic lesions are seen to suggest overtchanges of osteonecrosis. IMPRESSION: 1. No acute osseous abnormality of the mandible. No overt radiographic changes of osteonecrosis. 2. Diminished osseous density. THIS IS AN ELECTRONICALLY VERIFIED REPORT 08/28/2015 9:18 AM: Leonard Patten M.D. Leonard Patten M.D. CH:comfort 04:58 PM 08:00 AM [facility] [EOD] Karey King MD IMG XR PROCEDURES Final Result documented in this encounter Visit Diagnoses Diagnosis Jaw pain documented in this encounter
--- OUTSIDE RECORDS SUMMARY | 2024-03-18 22:43 | XMS_ITS | Encounter Summary ---
Author Organization [facility] Healthcare Address [address] [place] [address] Care Team Providers Care Layout Mechanic Name Role Phone Beau Clement MD Unavailable [phone] Encounter Details Date Type Department Care Team (Latest Contact Info) Description 07/09/2017 9:43 AM CDT [facility] [address] [address] Localized swelling, mass and lump, right lower limb Social History Tobacco Use Types Packs/Day Years Used Date Smoking Tobacco: Never Assessed Comments Unknown Sex and Gender Information Value Date Recorded Sex Assigned at Not on file 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 Gender Identity Female 08/22/2019 6:09 AM CDT Sexual Orientation Straight 08/22/2019 6: 09 AM CDT documented as of this encounter Plan of Treatment Not on file documented as of this encounter Procedures Procedure Name Priority Date/Time Associated Diagnosis Comments XR FOOT RIGHT 3 OR MORE VIEWS Routine 07/09/2017 9:46 AM CDT documented in this encounter Results * XR Foot Right 3 or More Views (07/09/2017 9:46 AM CDT) Anatomical Region Laterality Modality Lower Extremities, Foot Right Radiogra phic Imaging 07/09/2017 9:46 AM CDT Impressions 07/09/2017 10:16 AM CDT ??Osteophytes in the midfoot likely corresponding to the palpable abnormality THIS IS AN ELECTRONICALLY VERIFIED FINAL REPORT 07/09/2017 10:13 AM - Electronically signed by Jose Daniel CASTANON: LG D: ??07/09/2017 10:13 AM T: ??07/09/2017 10:13 AM Report ID: [id number] Reading Location: ??[id number] [EOD] Narrative 07/09/2017 10:16 AM CDT EXAM DESCRIPTION: Foot RT 3 View Min COMPLETED DATE/TIME: ??07/09/2017 9:59 am REASON FOR STUDY: ??mass on dorsal aspect of foot x 2 months, ??intermittent pain, no known, injury TECHNIQUE: ??AP, lateral and oblique ??radiographic views acquired of the right foot. COMPARISON: ??07/23/2014 FINDINGS: BONES/JOINTS: Chronic osteoarthritic changes are present. ??There is mild subluxation at the proximal interphalangeal joint of the 2nd digit. ??Prominent osteophytes are present in the midfoot at the dorsal aspect likely representing the palpable mass. SOFT TISSUES: Vascular calcification is noted. OTHER: No other significant finding. Procedure Note Provider, MD Anny - 07/24/2020 EXAM DESCRIPTION: Foot RT 3 View Min COMPLETED DATE/TIME: 07/09/2017 9:59 am REASON FOR STUDY: mass on dorsal aspect of foot x 2 months, intermittent pain, no known, injury TECHNIQUE: AP, lateral and oblique radiographic views acquired of theright foot. COMPARISON: 07/23/2014 FINDINGS: BONES/JOINTS: Chronic osteoarthritic changes are present. There is mild subluxation at the proximal interphalangeal joint of the 2nd digit.Prominent osteophytes are present in the midfoot at the dorsal aspect likely representing the palpable mass. SOFT TISSUES: Vascular calcification is noted. OTHER: No other significant finding. IMPRESSION: Osteophytes in the midfoot likely corresponding to thepalpable abnormality THIS IS AN ELECTRONICALLY VERIFIED FINAL REPORT 07/09/2017 10:13 AM - Electronically signed by Jose Daniel Loredo M.D. NC: LG Report ID: [id number] Reading Location: [id number] [EOD] Karey King MD IMG XR PROCEDURES Final Result documented in this encounter Visit Diagnoses Diagnosis Localized swelling, mass and lump, right lower limb documented in this encounter Care Teams Layout Mechanic Relationship Specialty Start Date End Date Beau Clement MD [address] [place] [address] PCP - Essence Attributed PCP 03/08/17 documented as of this encounter
--- OUTSIDE RECORDS SUMMARY | 2024-03-18 22:43 | XMS_ITS | Encounter Summary ---
Author Organization [facility] Address [address] [facility] [address] [place] [address] Care Team Providers Care Petroleum Blending Plant Operator Name Role Phone Beau Clement MD Unavailable + [phone] Beau Clement MD Primary Care Provid er Reason for Visit * Reason Comments Toe Pain X1 week. Started at the big toe and is now on the top of her foot. She did some epsom salts. Some pain. Encounter Details Date Type Department Care Team (Late st Contact Info) Description 06/05/2019 10:30 AM CDT Office Visit [facility] Family Medicine [address] [phone] Beau Clement MD [address] [place] [id number] Paronychia of great toe, right (Primary Dx) Social History Tobacco Use Types Packs/Day Years Used Date Smoking Tobacco: Never Smokeless Tobacco: Never Alcohol Use Standard Drinks/Week Comments Not Currently 0 (1 standard drink = 0.6 oz pur e alcohol) Comments No Sex and Gender Information Value Date Recorded Sex Assigned at Not on file 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 Gender Identity Female 08/22/2019 6:09 AM CDT [...] Sign Reading Time Taken Comments Blood Pressure 136/68 06/05/2019 10:38 AM CDT Pulse 70 06/05/2019 10:38 AM CDT Temperature 36.7 ??C (98 ??F) 06/05/2019 10: 38 AM CDT Respiratory Rate 18 06/05/2019 10:3 8 AM CDT Oxygen Saturation 99% 06/05/2019 10: 38 AM CDT Inhaled Oxygen Concentration - - Weight 61.1 kg (134 lb 11.2 oz) 020 10:38 AM CDT Height 157.5 cm (5' 2 ) 06/05/2019 10:3 8 AM CDT Body Mass Index 24.64 06/05/2019 10:38 AM CDT documented in this encounter Ordered Prescriptions Prescription Sig Dispense Quantity Refills Last Filled Start Date End Date sulfamethoxazole-t rimethoprim (BACTRIM DS) 800-160 mg per tabletIndications: Paronychia of great toe, right Take 1 tablet by mouth 2 (two) times a day for 10 days 20 tablet 06/05/2019 06/15/2019 amoxicillin-clavul anate (AUGMENTIN) 875-125 mg per tabletIndications: Paronychia of great toe, right Take 1 tablet by mouth 2 (two) times a day for 10 days 20 tablet 06/05/2019 06/15/2019 documented in this encounter Progress Notes * Beau Clement MD - 06/05/2019 10:30 AM CDT Subjective/Objective Patient ID: Dottie Bryant is a 73 y.o. female. Chief Complaint Chief Complaint Patient presents with ??? Toe Pain X1 week. Started at the big toe and is now on the top of her foot. She did some epsom salts. Some pain. HPI The patient reports 1 week of pain and redness and swelling in her right great toe. She denies any injury. She has not had any pedicures done. She has a remote history of surgeries to the foot, about30 years ago. She reports that it started with pain and swelling and redness around her right greattoenail, and is progressed to involve more of her foot since that time. She denies any previous history of problems like this. Review of Systems Constitutional: Negative for activity [...] and urgency. Musculoskeletal: Positive for arthralgias and joint swelling. Negative for myalgias. See HPI, right great toe Skin: Negative for rash. Neurological: Negative for dizziness, weakness, light-headedness and headaches. Psychiatric/Behavioral: Negative for decreased concentration and sleep disturbance. The patient is not nervous/anxious. Physical Exam Vitals signs and nursing note reviewed. Constitutional: General: She is not in acute distress. Appearance: Normal appearance. She is well-developed. HENT: Head: Normocephalic and atraumatic. Jaw: There [...] No edema. Left lower leg: No edema. Comments: Right great toe is swollen from the cuticle back to the base of the toe, is a little swelling on the medial dorsum of the right foot. There is no MTP pain. Lymphadenopathy: Cervical: No cervical adenopathy. Skin: General: [...] Diagnoses and all orders for this visit: Paronychia of great toe, right (Primary) - amoxicillin-clavulanate (AUGMENTIN) 875-125 mg per tablet; Take 1 tablet by mouth 2 (two) times aday for 10 days - sulfamethoxazole-trimethoprim (BACTRIM DS) 800-160 mg per tablet; Take 1 tablet by mouth 2 (two)times a day for 10 days Plan: 1. Paronychia of right great toe: May be slowly proceeding to a cellulitis. Discussed diagnosis, prognosis, and treatment options with the patient. Keep foot elevated. OTC naproxen or Aleve as tolerated. Start Augmentin plus Bactrim. Reassess 2-3 days if not improving, or sooner if worsening. documented in this encounter Plan of Treatment Not on file documented as of this encounter Visit Diagnoses Diagnosis Paronychia of great toe, right- Primary documented in this encounter Discontinued Medications Medication Sig Discontinue Reason Start Date End Da te zinc gluconate 50 mg tablet Take 50 mg by mouth daily 06/05/2019 documented as of this encounter Care Teams Petroleum Blending Plant Operator Relationship Specialty Start Date End Date Beau Clement MD [address] [place] [address] PCP - [facility] Attributed PCP 03/08/17 Beau Clement MD [address] [place], [place] [id number] PCP - General Family Medicine 07/13/18 documented as of this encounter
--- OUTSIDE RECORDS SUMMARY | 2024-03-18 22:43 | XMS_ITS | Encounter Summary ---
Author Organization [facility] Address [address] [facility] [address] [place] [address] Care Team Providers Care Fast Food Server Name Role Phone Beau Clement MD Unavailable + [phone] Beau Clement MD Primary Care Provid er Reason for Visit * Reason Onset Date Comments appt scheduled 03/26/20 03/22/2020 Encounter Details Date Type Department Care Team (Late st Contact Info) Description 03/22/2020 Telephone [facility] Family Medicine [address] [phone] Beau Clement MD [address] [address] appt scheduled 03/26/20 Social History Tobacco Use Types Packs/Day Years [...] on file 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 - 03/22/2020 3:05 PM CST 6 visits added to current [facility] referral, scanned and faxed. ITY DRIVER * Telephone Encounter - Donna Yeboah - 03/22/2020 9:[address] Beny Gabriel Pod, 03/26/20 7:45am Pt has current referral, all 6 visits have been used. Thanks jrliz ITY DRIVER documented in this encounter Plan of Treatment Not on file documented as of this encounter Visit Diagnoses Not on filedocumented in this encounter Care Teams Fast Food Server Relationship Specialty Start Date End Date Beau Clement MD [address] [place] [address] PCP - Essence Attributed PCP 03/08/17 Beau Clement MD [address] [place] [address] PCP - General Family Medicine 07/13/18 documented as of this encounter
--- OUTSIDE RECORDS SUMMARY | 2024-03-18 22:43 | XMS_ITS | Encounter Summary ---
Author Organization [facility] Address [address] [facility] [address] [place] [address] Care Team Providers Care Manual Lathe Operator Name Role Phone Beau Clement MD Unavailable + [phone] Beau Clement MD Primary Care Provid er Reason for Visit * Reason Comments Cough Ongoing cough and So me congestion. Encounter Details Date Type Department Care Team (Late st Contact Info) Description 02/06/2020 1:15 PM [employer] Telemedicine [facility] Family Medicine [address] [phone] Beau Clement MD [address] [phone] Cough (Primary Dx) Social History Tobacco Use Types [...] on file Legal Sex Female 8:34 AM [employer] Gender Identity Female 08/22/2019 6:09 AM CDT Sexual Orientation Straight 08/22/2019 6: 09 AM CDT documented as of this encounter Last Filed Vital Signs Vital Sign Reading Time Taken Comments Blood Pressure 153/88 02/06/2020 1:16 PM [employer] Pulse 68 02/06/2020 1:16 PM [employer] Temperature 36.8 ??C (98.2 ??F) 02/06/2020 1:16 PM CS T Respiratory Rate - - Oxygen Saturation 98% 02/06/2020 1:16 PM [employer] Inhaled Oxygen Concentration - - Weight 54.4 kg (120 lb) 02/06/2020 1:16 PM [employer] Height 157.5 cm (5' 2 ) 02/06/2020 1:16 PM [employer] Body Mass Index 21.95 02/06/2020 1:16 PM [employer] documented in this encounter Ordered Prescriptions Prescription Sig Dispense Quantity Refills Last Filled Start Date End Date methylPREDNISolone (MEDROL DOSEPACK) 4 mg DosepackIndication s:Cough Take as directed on package. 21 tablet 02/06/2020 0 clarithromycin (BIAXIN) 500 mg tabletIndications: Cough Take 1 tablet (500 mg total) by mouth 2 (two) times a day for 10 days 20 tablet 1 02/06/2020 1 documented in this encounter Progress Notes * Beau Clement MD - 02/06/2020 1:15 PM CST Subjective/Objective Patient ID: Dottie Bryant is a 74 y.o. female. Chief Complaint Chief Complaint Patient presents with ??? Cough Ongoing cough and Some congestion. HPI The patient complains of persistent ongoing cough for the past several months. At this point, is primarily a dry cough, but there are episodes of wet coughing as well. She denies any fever or chills.She denies any wheezing. He does note some nasal as well as chest congestion. She denies any heartburn or reflux. She was on a course of Augmentin about a month ago, and it helped, but after about 5 days, she saw no improvement after that. She denies any loss of smell or taste. She has had no COVID exposure. Sheand her have been very careful about leaving the house, and she has barely left the house at all the past several months. This was a telemedicine visit with Dottie Bryant and her , Edgard, which took place via Real-time video connection (InTouch, Zoom or similar).??During the visit, I was located in the office and the patient was located at home in the state of [place]. The patient visit started at 1320 and ended at 1328. Total encounter time was 22 minutes, which includes time spent today on pre charting, the patient encounter, and post charting. The patient: has been informed that the visit may not be secure and acknowledged the information. The option of participating in a telephone or video visit during the [facility] [place] [address] emergencywas explained to them. After being given an opportunity to ask questions about and discuss this type of visit, they verbally consented to proceeding with the telephone/video visit and understand thatthis service replaces an office visit. Beau Clement MD Review of Systems Constitutional: Negative for appetite change, chills, fatigue and fever. HENT: Positive for congestion and rhinorrhea. Negative for ear discharge, ear pain, hearing loss, sinus pressure, sinus pain, sore throat and [...] or toxic-appearing. HENT: Head: Normocephalic and atraumatic. Eyes: Extraocular Movements: Extraocular movements intact. Neck: Musculoskeletal: Normal range of motion. Pulmonary: Effort: Pulmonary effort is normal. No respiratory distress. Musculoskeletal: Normal range of motion. Neurological: General: No focal deficit present. Mental Status: She is alert and oriented to person, place, and time. Mental status is at baseline. Psychiatric: Mood and Affect: Mood normal. Behavior: Behavior normal. Thought Content: Thought content normal. Judgment: Judgment normal. Assessment/Plan Diagnoses and all orders for this visit: Cough (Primary) - clarithromycin (BIAXIN) 500 mg tablet; Take 1 tablet (500 mg total) by mouth 2 (two) times a day for 10 days - methylPREDNISolone (MEDROL DOSEPACK) 4 mg Dosepack; Take as directed on package. Rest. Keep hydrated. Biaxin twice daily for 10 days, may need to repeat x1 for total of 20 days. I cautioned her to avoid her Lipitor while she is on the Biaxin. Medrol Dosepak for inflammation. Reassess 1 week. [employer] documented in this encounter Plan of Treatment Not on file documented as of this encounter Visit Diagnoses Diagnosis Cough- Primary documented in this encounter Discontinued Medications Medication Sig Discontinue Reason Start Date End Da te amoxicillin-clavulanate (AUGMENTIN) 500-125 mg per tablet TAKE ONE TABLET BY MOUTH TWICE A DAY 01/15/2020 02/06/2020 folic acid (FOLVITE) 800 mcg tablet Take 400 mcg by mouth daily 02/06/2020 documented as of this encounter Care Teams Manual Lathe Operator Relationship Specialty Start Date End Date Beau Clement MD [address] [place] [address] PCP - Essence Attributed PCP 03/08/17 Beau Clement MD [address] [place] [address] PCP - General Family Medicine 07/13/18 documented as of this encounter
--- OUTSIDE RECORDS SUMMARY | 2024-03-18 22:43 | XMS_ITS | Encounter Summary ---
Author Organization [facility] Address [address] [place] [address] Care Team Providers Care Hand Crown Pouncer Name Role Phone Unavailable Primary Care Provider Unavailabl e Encounter Details Date Type Department Care Team (Latest Contact Info) Description 03/18/2016 9:47 AM SLIP COVER ESTIMATOR Hospital Encounter 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 Gender Identity Female 08/22/2019 6:09 AM CDT Sexual Orientation Straight 08/22/2019 6: 09 AM CDT documented as of this encounter Plan of Treatment Not on file documented as of this encounter Procedures Procedure Name Priority Date/Time Associated Diagnosis Comments SCREENING MAMMOGRAM BILATERAL W MAURICIO Routine 03/18/2016 9:49 AM SLIP COVER ESTIMATOR GENERAL RADIOLOGY REPORT 03/18/2016 12:00 AM SLIP COVER ESTIMATOR documented in this encounter Results * Screening Mammogram Bilateral W Mauricio (03/18/2016 9:49 AM SLIP COVER ESTIMATOR) Anatomical Region Laterality Modality Breast Bilateral Mammography 03/18/2016 9:49 AM SLIP COVER ESTIMATOR Impressions 03/18/2016 10:25 AM SLIP COVER ESTIMATOR BI-RAD 1 ??NEGATIVE There is no mammographic evidence of malignancy. A 1 year screening mammogram is recommended. ?? The patient has been or will be contacted. ?? The patient will be entered into a reminder system with a target due date of 1 year for her next screening exam. Electronically signed by: Dr. Trenton Kang dc/penrad:03/18/2016 10:24:27 ?? Yellow Pages Space Salesperson: Robb Ceja Mammography letter sent: Normal Exam ?? Reading location: BI-RADS: 1 Negative [EOD] Narrative 03/18/2016 10:25 AM SLIP COVER ESTIMATOR - MG BILATERAL DIGITAL SCREENING MAMMOGRAM 3D/2D WITH CAD WITH MEDIOLATERAL OBLIQUE CRANIOCAUDAL: 03/18/2016 The study was acquired using full field digital technology and interpreted from soft copy. ?? Current study was also evaluated with R2 CAD. 2D digital mammographic views, as well as 3D digital tomosynthesis were performed in the CC and MLO projections. CLINICAL: New baseline mammogram. Denies any problems today. No personal history of breast cancer. No family history of breast cancer. ?? COMPARISONS: No prior exams were available for comparison. ?? BREAST TISSUE: The tissue of both breasts is almost entirely fatty. ?? FINDINGS: No significant masses, calcifications, or other findings are seen in either breast. ?? Procedure Note Provider, MD Anny - 07/24/2020 - MG BILATERAL DIGITAL SCREENING MAMMOGRAM 3D/2D WITH CAD WITH MEDIOLATERALOBLIQUE CRANIOCAUDAL: 03/18/2016 The study was acquired using full field digital technology and interpretedfrom soft copy. Current study was also evaluated with R2 CAD. 2D digital mammographic views, as well as 3D digital tomosynthesis were performed in the CC and MLO projections. CLINICAL: New baseline mammogram. Denies any problems today. No personal history of breast cancer. No family history of breast cancer. COMPARISONS: No prior exams were available for comparison. BREAST TISSUE: The tissue of both breasts is almost entirely fatty. FINDINGS: No significant masses, calcifications, or other findings areseen in either breast. IMPRESSION: BI-RAD 1 NEGATIVE There is no mammographic evidence of malignancy. A 1 year screeningmammogram is recommended. The patient has been or will be contacted. The patient will be entered into a reminder system with a target due dateof 1 year for her next screening exam. Electronically signed by: Dr. Trenton wilson/lex:03/18/2016 10:24:27 Yellow Pages Space Salesperson: Robb Ceja Mammography letter sent: Normal Exam Reading location: BI-RADS: 1 Negative [EOD] us Karey King MD IMG MAMMO PROCEDURES Fi nal Result * GENERAL RADIOLOGY REPORT (03/18/2016 12:00 AM SLIP COVER ESTIMATOR) Anatomical Region Laterality Modality Radiographic Maya ging Narrative 03/18/2016 12:00 AM SLIP COVER ESTIMATOR Ordered by an unspecified provider. Historical Provider MD WARREN XR PROCEDURES Final R esult documented in this encounter Visit Diagnoses Diagnosis Encounter for screening mammogram for malignant neoplasm of breast documented in this encounter
--- OUTSIDE RECORDS SUMMARY | 2024-03-18 22:43 | XMS_ITS | Encounter Summary ---
Author Organization [facility] Healthcare Address [address] [place] [address] Care Team Providers Care Directory Assistance Operator Name Role Phone Unavailable Primary Care Provider Unavailabl e Encounter Details Date Type Department Care Team (Latest Contact Info) Description 06/24/2015 8:08 AM CDT Hospital Encounter 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 Gender Identity Female 08/22/2019 6:09 AM CDT Sexual Orientation Straight 08/22/2019 6: 09 AM CDT documented as of this encounter Plan of Treatment Not on file documented as of this encounter Procedures Procedure Name Priority Date/Time Associated Diagnosis Comments HEPATITIS C ANTIBODY Routine 06/24/2015 9:37 AM CDT VITAMIN D 25 HYDROXY Routine 06/24/2015 9:37 AM CDT CBC WITHOUT DIFFERENTIAL Routine 06/24/2015 9:37 AM CDT LIPID PANEL Routine 06/24/2015 9:37 AM CDT COMPREHENSIVE METABOLIC PANEL Routine 06/24/2015 9:37 AM CDT documented in this encounter Results * (ABNORMAL) CBC without differential (06/24/2015 9:37 AM CDT) [facility] WBC 7.6 4.6 - 10.2 x10 3/ul 06/24/2015 1:27 PM CDT [facility] HISTORICAL RESULTS RBC 3.85 3.76 - 4.80 x10 6/ul 06/24/2015 1:27 PM CDT [facility] HISTORICAL RESULTS Hemoglobin 12.5 11.0 - 15.0 g/dl 06/24/2015 1:27 PM CDT [facility] HISTORICAL RESULTS Hct 38.4 33.0 - 43.0 % 06/24/2015 1:27 PM CDT [facility] HISTORICAL RESULTS MCV 99.7(H) 80.0 - 97.0 fl 06/24/2015 1:27 PM CDT [facility] HISTORICAL RESULTS MCH 32.5(H) 27.0 - 31.2 pg 06/24/2015 1:27 PM CDT [facility] HISTORICAL RESULTS MCHC 32.6 31.8 - 35.4 g/dl 06/24/2015 1:27 PM CDT [facility] HISTORICAL RESULTS RDW 13.5 11.6 - 14.8 % 06/24/2015 1:27 PM CDT [facility] HISTORICAL RESULTS Plt Count 326 124 - 400 x10 3/ul 06/24/2015 1:27 PM CDT [facility] HISTORICAL RESULTS MPV 9.4 7.4 - 10.4 fl 06/24/2015 1:27 PM CDT [facility] HISTORICAL RESULTS 06/24/2015 9:37 AM CDT 06/24/2015 9:37 AM CDT Narrative [facility] HISTORICAL RESULTS - 06/24/2015 1:27 PM CDT PT FAST 12HR us Katie Brunner MD LAB BLOOD ORDERABLES F inal Result [facility] HISTORICAL RESULTS * Hepatitis C antibody (06/24/2015 9:37 AM CDT) [facility] Hep C Ab NONREACT NONREACTIVE 06/24/2015 2:26 PM CDT [facility] HISTORICAL RESULTS Comment: Siemens CentaurXP using PEPE [...] AM CDT 06/24/2015 9:37 AM CDT Narrative [facility] HISTORICAL RESULTS - 06/24/2015 2:26 PM CDT PT FAST 12HR Katie Brunner MD LAB MICROBIOLOGY - GEN ERAL ORDERABLES Final Result [facility] HISTORICAL RESULTS * (ABNORMAL) Vitamin D 25 hydroxy (06/24/2015 9:37 AM CDT) 25-OH Vitamin D Total 28(L) 30 - 100 ng/mL 06/24/2015 1:53 PM CDT [facility] HISTORICAL RESULTS Comment: ??Use caution when comparing results from different ? methodologies and/or manufacturers. ? METHOD: CENTAUR XP Chemiluminescent technology TEST INFORMATION: Vitamin D, 25 Hydroxy This assay accurately quantifies the sum of vitamin D3, 25-hydroxy and vitamin D2, 25-hydroxy. REFERENCE RANGES: ?Deficiency: ? < 20 ng/mL ?Insufficiency: ? 20-29 ng/mL ?Optimum level: ?30-100 ng/mL ?Possible toxicity: ?>100 ng/mL No pediatric reference range established. 06/24/2015 9:37 AM CDT 06/24/2015 9:37 AM CDT Narrative [facility] HISTORICAL RESULTS - 06/24/2015 1:53 PM CDT PT FAST 12HR Katie Brunner MD LAB BLOOD ORDERABLES F inal Result [facility] HISTORICAL RESULTS * (ABNORMAL) Lipid panel (06/24/2015 9:37 AM CDT) Triglycerides 73 0 - 199 mg/dL 06/24/2015 1:51 PM CDT [facility] HISTORICAL RESULTS Comment:12 hr pc highly radha mmended for Triglyceride Cholesterol 212(H) 0 - 199 mg/dL 06/24/2015 1:51 PM CDT [facility] HISTORICAL RESULTS Comment: Borderline: ??200-239 High Risk: ?? >239 HDL Cholesterol 128(H) 40 - 60 mg/dL 06/24/2015 2:10 PM CDT [facility] HISTORICAL RESULTS Comment: Major Risk ?< 40 mg/dL Moderate Risk ?40-60 mg/dL Negative Risk ?? > 60 mg/dL LDL Cholesterol, Calc 69 0 - 130 mg/dL 06/24/2015 2:10 PM CDT [facility] HISTORICAL RESULTS Comment:High Risk > 159 mg/d L Cholesterol/HDL Ratio 1.7 06/24/2015 2:10 PM T [facility] HISTORICAL RESULTS Comment: Cholesterol / HDL Ratio 3.5:1 or less is desirable. Cholesterol / HDL Ratio greater than 5:1 is considered higher risk for developing heart disease. 06/24/2015 9:37 AM CDT 06/24/2015 9:37 AM CDT [facility] HISTORICAL RESULTS - 06/24/2015 2:10 PM CDT PT FAST 12HR Katie Brunner MD LAB BLOOD ORDERABLES F inal Result [facility] HISTORICAL RESULTS * Comprehensive metabolic panel (06/24/2015 9:37 AM CDT) Sodium 140 135 - 145 mmol/L 06/24/2015 1:51 PM CDT [facility] HISTORICAL RESULTS Potassium 4.5 3.3 - 5.1 mmol/L Chloride 100 96 - 108 mmol/L Carbon Dioxide 28 22 - 32 mmol/L Anion Gap 12 7 - 16 Glucose 94 70 - 100 mg/dL BUN 12 8 - 23 mg/dL Creatinine 0.8 0.5 - 1.1 mg/dL Comment: NOTE: Estimated GFR (Cockroft-Gault) will NOT be calculated unless patient Height and Weight were entered. Also, Kidney Disease Stage (GFR) and Estimated GFR (Cockroft-Gault) will NOT be calculated if Creatinine result is <0.2. Kidney Disease Stage 76 mL/MIN Comment: NOTE; ??The GFR is an estimated value using the creatinine, sex, age, and race of the patient. THE ESTIMATED GFR IS VALIDATED FOR AGES 18-70 YEARS STAGE ?mL/Min ?DESCRIPTION ??1 ?90 mL/min or more ?Normal or elevated GFR ??2 ? 60-89 mL/min ?Mildly decreased GFR ??3 ? 30-59 mL/min ?Moderately decreased GFR ??4 ? 15-29 mL/min ?Severely decreased GFR ??5 ? <15 mL/min ? Kidney failure or on dialysis @ Calcium 10.0 8.8 - 10.2 mg/dL 06/24/2015 1:51 PM T [facility] HISTORICAL RESULTS Total Protein 7.3 6.4 - 8.3 g/dL 06/24/2015 1:51 PM T [facility] HISTORICAL RESULTS Albumin 3.8 3.5 - 5.2 g/dL 06/24/2015 1:51 PM T [facility] HISTORICAL RESULTS Globulin 3.5 2.3 - 3.5 gm/dL 06/24/2015 1:51 PM T [facility] HISTORICAL RESULTS Albumin/Globulin Ratio 1.1 1.1 - 1.8 06/24/2015 1:51 PM T [facility] HISTORICAL RESULTS Total Bilirubin 0.5 0.0 - 1.2 mg/dL 06/24/2015 1:51 PM T [facility] HISTORICAL RESULTS AST 32 0 - 32 U/L 06/24/2015 1:51 PM T [facility] HISTORICAL RESULTS ALT 14 0 - 33 U/L 06/24/2015 1:51 PM T [facility] HISTORICAL RESULTS Alkaline Phosphatase 65 35 - 104 U/L 06/24/2015 1:51 PM T [facility] HISTORICAL RESULTS 06/24/2015 9:37 AM CDT 06/24/2015 9:37 AM T Narrative [facility] HISTORICAL RESULTS - 06/24/2015 1:51 PM CDT PT FAST 12HR us Katie Brunner MD LAB BLOOD ORDERABLES F inal Result [facility] HISTORICAL RESULTS documented in this encounter Visit Diagnoses Diagnosis Encounter for general adult medical examination without abnormal findings Essential (primary) hypertension Unspecified essential hypertension Hyperlipidemia Other and unspecified hyperlipidemia documented in this encounter
--- OUTSIDE RECORDS SUMMARY | 2024-03-18 22:43 | XMS_ITS | Encounter Summary ---
Author Organization [facility] Healthcare Address [address] [place] [address] Care Team Providers Care Bone Char Puller Name Role Phone Unavailable Primary Care Provider Unavailabl e Encounter Details Date Type Department Care Team (Latest Contact Info) Description 05/21/2016 9:27 AM CDT Hospital Encounter [facility] Karey King MD [address] [address] Pleurodynia; Other nonspecific abnormal finding of lung field Social History Tobacco Use Types Packs/Day Years Used Date Smoking Tobacco: Never Assessed Comments Unknown Sex and Gender Information Value Date Recorded Sex Assigned at Not on file 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 1. ??Vague density within the right upper lobe. ??Correlation with chest CT is suggested. ??This would coincide with 12-month surveillance as recommended on prior chest CT from 06/03/2015. 2. ??No definite left rib fracture is identified. THIS IS AN ELECTRONICALLY VERIFIED REPORT 05/21/2016 10:06 AM: ??Kasi RondonO. ?? Jatin Maher D.O. :as 10:06 AM 10:06 AM [facility] [EOD] Narrative 05/21/2016 10:10 AM CDT EXAMINATION: ??PA chest and left rib series. HISTORY: ??Left rib pain and dry cough for 3 months. ??No recent injury. Comparison is made to prior radiograph from 05/09/2014. ??CT chest 06/03/2015. FINDINGS: ??Heart size is normal. ??There is no pulmonary vascularity congestion. ??There is an ill-defined linear opacity within the right upper lobe which may correspond with some subpleural infiltrate noted on the prior CT. ??Additional nodules were identified at that time for which 1-year follow-up was recommended. ??Therefore would recommend correlating with chest CT in conjunction with this 12-month surveillance. There is no pleural effusion or pneumothorax. No displaced left rib fracture is identified. ??Mineralization is normal. ??The chest wall is unremarkable. Procedure Note Provider, MD Anny - 07/24/2020 EXAMINATION: PA chest and left rib series. HISTORY: Left rib pain and dry cough for 3 months. No recent injury. Comparison is made to prior radiograph from 05/09/2014. CT chest06/03/2015. FINDINGS: Heart size is normal. There is no pulmonary vascularity congestion. There is an ill-defined linear opacity within the right upper lobe which may correspond with some subpleural infiltrate noted on theprior CT. Additional nodules were identified at that time for which 1-year follow-up was recommended. Therefore would recommend correlating withchest CT in conjunction with this 12-month surveillance. There is no pleural effusion or pneumothorax. No displaced left rib fracture is identified. Mineralization is normal.The chest wall is unremarkable. IMPRESSION: 1. Vague density within the right upper lobe. Correlation with chest CTis suggested. This would coincide with 12-month surveillance as recommendedon prior chest CT from 06/03/2015. 2. No definite left rib fracture is identified. THIS IS AN ELECTRONICALLY VERIFIED REPORT 05/21/2016 10:06 AM: Jatin Maher D.O. Jatin Maher D.O. :as 10:06 AM 10:06 AM [facility] [EOD] Karey King MD IMG XR PROCEDURES Final Result documented in this encounter Visit Diagnoses Diagnosis Pleurodynia Painful respiration Other nonspecific abnormal finding of lung field documented in this encounter
--- OUTSIDE RECORDS SUMMARY | 2024-03-18 22:43 | XMS_ITS | Encounter Summary ---
Author Organization [facility] Address [address] [facility] [address] [place] [address] Care Team Providers Care Furnace Cooler Name Role Phone Beau Clement MD Unavailable +1- [phone] Beau Clement MD Primary Care Provid er Reason for Referral * Diagnostic Imaging (Routine) - Closed Specialty Diagnoses / Procedures Referred By Contac t Referred To Contact Diagnoses Age-related osteoporosis without current pathological fracture Procedures Dexa Axial Skeleton Bone Density 1 or 2 Site Beau Clement MD [address] [place] [address] Phone: tel: fax: [facility] Referral ID Status Reason Start Date Expiration Date Visits Re quested Visits Authorized [id number] Closed 09/04/2020 10/04/2021 1 1 * Diagnostic Imaging (Routine) - Closed Specialty Diagnoses / Procedures Referred By Contac t Referred To Contact Diagnoses Encounter for screening mammogram for malignant neoplasm of breast Procedures Screening Mammogram Bilateral W Hussain Beau Clement MD [address] [place] [address] Phone: tel: fax: [address] [address] Referral ID Status Reason Start Date Expiration Date Visits Re quested Visits Authorized [id number] Closed 09/04/2020 10/04/2021 1 1 Reason for Visit * Reason Comments Hypertension Hyperlipidemia Memory Loss Pt states she has be en having trouble with her memory. 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 Gender Identity Female 08/22/2019 6:09 AM CDT Sexual Orientation Straight 08/22/2019 6: 09 AM CDT documented as of this encounter Last Filed Vital Signs Vital Sign Reading Time Taken Comments Blood Pressure 128/78 09/04/2020 8:36 AM CDT Pulse 63 09/04/2020 8:36 AM CDT Temperature 36.6 ??C (97.9 ??F) 09/04/2020 8:36 AM CD T Respiratory Rate 18 09/04/2020 8:36 AM CDT Oxygen Saturation 99% 09/04/2020 8:36 AM CDT Inhaled Oxygen Concentration - - Weight 52.2 kg (115 lb 1.6 oz) 09/04/2020 8:36 A M CDT Height 157.5 cm (5' 2 ) 09/04/2020 8:36 AM CDT Body Mass Index 21.05 09/04/2020 8:36 AM CDT documented in this encounter Progress Notes * Beau Clement MD - 09/04/2020 8:45 AM CDT Subjective/Objective Patient ID: Dottie Bryant is a 75 y.o. female. Chief Complaint Chief Complaint Patient presents with ??? Hypertension ??? Hyperlipidemia ??? Memory Loss Pt states she has been having trouble with her memory. HPI The patient is here today to follow-up on her hypertension hyperlipidemia. She also has some concerns about her memory. She is sleeping well. Her appetite is good. She denies any bowel or bladder problems. She is due for colonoscopy or other colon cancer screening, she has no history of an abnormal colonoscopy. For exercise, she does house work and yard work, several hours per week. She has been having some issues with short-term memory recently. She will often forget where she has put down objects, and this seems to be happening several times per day. This is more than has beenin the past. Her memory concerns are not interfering with her activities or ADLs. The patient's past medical history, surgical history, [...] Negative for dizziness, weakness, light-headedness and headaches. Memory concerns Psychiatric/Behavioral: Negative for decreased concentration and sleep [...] Diagnoses and all orders for this visit: Essential (primary) hypertension (Primary) - CBC with auto differential; Future - Comprehensive metabolic panel; Future - Lipid panel; Future - Albumin Creatinine Ratio, Urine; Future Dyslipidemia Memory deficit Age-related osteoporosis without current pathological fracture - Dexa Axial Skeleton Bone Density 1 or 2 Site; Future Colon cancer screening - Stool DNA - Cologuard; Future Encounter for screening mammogram for malignant neoplasm of breast - Screening Mammogram Bilateral W Hussain; Future Plan: 1. Hypertension: Continue low-sodium diet. Continue metoprolol XL. Encouraged more exercise with a goal of 150 minutes of moderate intensity aerobic exercise weekly. Maintain her healthy weight. Labs ordered. 2. Dyslipidemia: Controlled on low-dose Lipitor. Continue healthy diet. Encouraged more exercise. Maintain her healthy weight. Check labs. 3. Memory concerns: Exam is good today. This may be standard age-related short-term memory loss, but I suspect it may be something a littlemore serious. Check labs as above. Will likely refer to Neurology for evaluation once the labs are back. 4. Osteoporosis: Continue regular exercise. Continue vitamin-D and calcium supplementation. Check DEXA scan. 6. Colon cancer screening: Cologuard ordered. 7. Breast cancer screening: Mammogram ordered. documented in this encounter Miscellaneous Notes * Addendum Note - Dina Palencia - 09/04/2020 8:45 AM CDTAddended by: DINA PALENCIA on: 09/10/2020 07:52 AM Modules accepted: Orders documented in this encounter Plan of Treatment Not on file documented as of this encounter Procedures Procedure Name Priority Date/Time Associated Diagnosis Comments STOOL DNA ? COLOGUARD Routine 09/12/2020 8:15 AM CDT Colon cancer screening COLONOSCOPY Routine 06/17/2011 documented in this encounter Results * Dexa Axial Skeleton Bone Density 1 or 2 Site (12/06/2020 10:00 AM CDT) Anatomical Region Laterality Modality Body N/A Mammography 12/06/2020 11:5 7 AM CDT Narrative 12/06/2020 11:59 AM CDT EXAM DESCRIPTION: ?? DEXA AXIAL SKELETON BONE DENSITY 1 OR MORE SITES REASON FOR STUDY: ??Post-menopausal female, screening for osteoporosis. Tile Roofer/Model: ?? Hologic Horizon A (S/N [id number]) CLINICAL INFORMATION: ??Current height: ??62 inches ? [...] Electronically signed by Felipe Barker M.D. AB: AB D: ??12/06/2020 11:59 AM T: ??12/06/2020 11:59 AM Report ID: [id number] Reading Location: ??[id number] Procedure Note Felipe Barker MD - 12/06/2020 EXAM DESCRIPTION: DEXA AXIAL SKELETON BONE DENSITY 1 OR MORE SITES REASON FOR STUDY: Post-menopausal female, screening for osteoporosis. Tile Roofer/Model: Argo Tea A (S/N [id number]) CLINICAL INFORMATION: Current height: 62 inches Maximum [...] by Felipe Barker M.D. AB: Report ID: [id number] Reading Location: [place] [address] Beau Clement MD IMFrdedy DXA PROCEDURES F inal Result * Screening Mammogram Bilateral W Hussain (12/06/2020 9:45 AM CDT) Anatomical Region Laterality [...] age 40, based on guidelines of the [employer] (ACR Practice Parameter for the Performance of Screening and Diagnostic Mammography) and [place] [employer]nec[employer]. For women with and elevated risk of breast cancer, please refer to the ACR Practice Parameter for specific screening recommendations. The patient will be entered into a reminder system with a target due date of 1 year for her next screening exam. Narrative 12/06/2020 10:22 AM CDT Screening Mammogram Bilateral W Hussain: 12/06/20 The study was acquired using full [...] Screening Mammogram Bilateral W Hussain BREAST TISSUE: The breasts are almost entirely fatty. FINDINGS: No suspicious masses, suspicious calcifications, or other suspicious findings are seen within either breast. There has been no suspicious change. Beau Clement MD IM MAMMO PROCEDURES Final Result * Stool DNA - Cologuard (09/12/2020 8:15 AM CDT) Stool DNA - Cologuard Negative Negative [place] (CLIA #:[id number]) Comment: NEGATIVE TEST RESULT. A negative Cologuard [...] cancer. ??Following a negative Cologuard result, the [place] Cancer Society and U.S. Multi-Society Task Force screening guidelines recommend a Cologuard re-screening interval of 3 years. References: [place] [employer] Guideline for Colorectal Cancer Screening: https://www.cancer.org/cancer/vcbkb-baqstg-rkpiiw/ovyjgmxby-hncbojcir-svwvaxf/ac s-rec ommendations.html.; John DK, Ezequiel CR, Arlette RodriguezK, Colorectal Cancer Screening: Recommendations for Physicians and Patients from the U.S. Multi-Society Task Force on Colorectal Cancer Screening , Am J Gastroenterology 2017; 112:9888-2190. TEST DESCRIPTION: Composite algorithmic analysis of stool [...] (Manuel Menendez al, N Engl J Med 2014;370(14):0797-1492.) Cologuard may produce a false negative or false positive result (no colorectal cancer or precancerous polyp present at colonoscopy follow up). A negative Cologuard test result does not guarantee the absence of CRC or advanced adenoma (pre-cancer). The current Cologuard screening interval is every 3 years. ([place] Cancer Society and U.S. Multi-Society Task Force). Cologuard performance data in a 10,000 patient pivotal study using colonoscopy as the reference method can be accessed at the following location: www.SGB.AbleSky/results. Additional description of the Cologuard test process, warnings and precautions can be found at www.Syrenaicard.AbleSky. Stool 09/12/2020 8:15 AM CDT 09/13/2020 2:57 PM CDT Beau Clement MD LAB BODY FLUIDS AND STOOLS ORDERABLES Final Result [facility] (CLIA #:[id number]) [place] [address] * (ABNORMAL) CBC with auto differential (09/10/2020 7:58 AM CDT) WBC 5.8 3.8 - 9.9 K/cumm [facility] Comment:Testing performed by : [address] [address] Hgb 12.7 11.9 - 15.5 g/dL [facility] Comment:Testing performed by : [address] [address] Hct 39.4 35.6 - 45.5 % [facility] Comment:Testing performed by : [address] [address] Plt 310 150 - 400 K/cumm [facility] Comment:Testing performed by : [address] [address] MPV 8.9(L) 9.1 - 12.3 fL [facility] Comment:Testing performed by : [address] [address] RBC 3.97 3.90 - 5.20 M/cumm [facility] Comment:Testing performed by : [address] [address] MCV 99.2(H) 81.3 - 96.4 fL [facility] Comment:Testing performed by : [address] [address] MCH 32.0 27.1 - 33.3 pg [facility] Comment:Testing performed by : [address] [address] MCHC 32.2(L) 32.3 - 35.7 g/dL [facility] Comment:Testing performed by : [address] [address] RDW CV 13.0 11.1 - 14.9 % [facility] Comment:Testing performed by : [address] [address] RDW SD 47.3 35.7 - 48.1 fL [facility] Comment:Testing performed by : [address] [address] NRBC abs 0.00 0.00 - 0.01 K/cumm [facility] Comment:Testing performed by : [address] [address] Blood specimen (specimen) 09/10/2020 7:58 AM CDT 09/10/2020 8:25 AM CDT us Beau Clement MD LAB BLOOD ORDERABLES Final Result [facility] Department [place] [address] * Comprehensive metabolic panel (09/10/2020 7:58 AM CDT) Sodium 141 135 - 145 mmol/L [facility] Comment:Testing performed by : [address] [address] Potassium, pl 4.6 3.3 - 4.9 mmol/L [facility] Comment:Testing performed by : [address] [address] Chloride 105 97 - 110 mmol/L [facility] Comment:Testing performed by : [address] [address] CO2 28 22 - 32 mmol/L [facility] Comment:Testing performed by : [address] [address] Anion gap 8 2 - 15 mmol/L [facility] Comment:Testing performed by : [address] [address] BUN 11 8 - 25 mg/dL [facility] Comment:Testing performed by : [address] [address] Creatinine 0.80 0.60 - 1.10 mg/dL [facility] Comment:Testing performed by : [address] [address] Glucose 111 70 - 199 mg/dL [facility] Comment: Interpretive [...] was last revised 2017. Testing performed by: [address] [address] Calcium 9.7 8.5 - 10.3 mg/dL [facility] Comment:Testing performed by : [address] [address] Bilirubin, total 0.4 0.1 - 1.2 mg/dL [facility] Comment:Testing performed by : [address] [address] Protein, pl 7.0 6.5 - 8.5 g/dL [facility] Comment:Testing performed by : [address] [address] Albumin 4.1 3.5 - 5.0 g/dL [facility] Comment:Testing performed by : [address] [address] Alk phos 55 40 - 130 Units/L [facility] Comment:Testing performed by : [address] [address] ALT 15 7 - 45 Units/L [facility] Comment:Testing performed by : [address] [place] [address] AST 22 10 - 45 Units/L [facility] Comment:Testing performed by : [facility], [address] [place] [address]., [address] Blood specimen (specimen) 09/10/2020 7:58 AM CDT 09/10/2020 8:25 AM CDT Beau Clement MD LAB BLOOD ORDERABLES Final Result [facility] [address] [facility] Department [place] [address] * (ABNORMAL) Lipid panel (09/10/2020 7:58 AM [...] last revised on 2017. Testing performed by: [facility], [address] [place] [address]., [address] Triglycerides 55 <=149 mg/dL [facility] Comment: [...] revised on 2017. Testing performed by: [address] [address] HDL 114 >=40 mg/dL [facility] Comment: Interpretive Data Ages [...] revised on 2017. Testing performed by: [address] [address] LDL, calculated 84 <=129 mg/dL [facility] Comment: Interpretive Data Ages [...] revised on 2017. Testing performed by: [address] [address] Non-HDL Cholesterol 95 mg/dL [facility] Comment: [...] revised on 2017. Testing performed by: [address] [address] Chol/HDL ratio 2 [facility] Comment:Testing performed by : [address] [address] Blood specimen (specimen) 09/10/2020 7:58 AM CDT 09/10/2020 8:25 AM CDT us Beau Clement MD LAB BLOOD ORDERABLES Final Result [facility] [address] [facility] Department [place] [address] * Albumin Creatinine Ratio, Urine (09/10/2020 7:58 AM CDT) Albumin Ur <12.0 mg/L [facility] Comment: Interpretive Data No reference range established. Current interpretive data was last revised 2018. Testing performed by: [address] [address] Creatinine Ur 83.8 mg/dL [facility] Comment: Interpretive Data No reference range established. Current interpretive data was last revised 2018. Testing performed by: [address] [address] Albumin Creatinine Ratio, Ur <14 1 - 29 mg/g [facility] Comment:Testing performed by : [address] [address] Urine 09/10/2020 7:58 AM CDT 09/10/2020 5:52 PM CDT Beau Clement MD LAB URINE ORDERABLES Final Result Performing Organization Address City/State/[facility] Co de Phone Number [facility] [address] [facility] Department [place] [address] * Colonoscopy (06/17/2011) Anatomical Region Laterality Modality Other Historical Provider ENDOSCOPY PROCEDURES Blanca l Result documented in this encounter Visit Diagnoses Diagnosis Essential (primary) hypertension- Primary Unspecified essential hypertension Dyslipidemia Other and unspecified hyperlipidemia Memory deficit Memory loss Age-related osteoporosis without current pathological fracture Colon cancer screening Special screening for malignant neoplasms, colon Encounter for screening mammogram for malignant neoplasm of breast Age-related osteoporosis without current pathological fracture Encounter for screening mammogram for malignant neoplasm of breast documented in this encounter Discontinued Medications Medication Sig Discontinue Reason Start Date End Da te alendronate (FOSAMAX) 70 mg tabletIndications:Age-rel ated osteoporosis without current pathological fracture Take 1 tablet by mouth once per week 11/09/2019 09/04/2020 documented as of this encounter Care Teams Furnace Cooler Relationship Specialty Start Date End Date Beau Clement MD [address] [place], [place] [id number] PCP - Essence Attributed PCP 03/08/17 Beau Clement MD [address] [place], [place] [id number] PCP - General Family Medicine 07/13/18 documented as of this encounter
--- OUTSIDE RECORDS SUMMARY | 2024-03-18 22:43 | XMS_ITS | Encounter Summary ---
Author Organization [facility] Address [address] [facility] [address] [place] [address] Care Team Providers Care Shoe Coverer Name Role Phone Beau Clement MD Unavailable + [phone] Beau Clement MD Primary Care Provid er Reason for Visit * Reason Onset Date Comments AWV to be scheduled 10/22/2020 Encounter Details Date Type Department Care Team (Late st Contact Info) Description 10/22/2020 Telephone [facility] Family Medicine [address] [address] Beau Clement MD [address] [address] AWV to be scheduled Social History Tobacco Use Types Packs/Day Years [...] on file 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 Due 11/09/2020 Thank you Pt phone [phone] documented in this encounter Plan of Treatment Not on file documented as of this encounter Visit Diagnoses Not on filedocumented in this encounter Care Teams Shoe Coverer Relationship Specialty Start Date End Date Beau Clement MD [address] [place] [address] PCP - Essence Attributed PCP 03/08/17 Beau Clement MD [address] [place] [address] PCP - General Family Medicine 07/13/18 documented as of this encounter
--- OUTSIDE RECORDS SUMMARY | 2024-03-18 22:43 | XMS_ITS | Encounter Summary ---
Author Organization [facility] Address [address] [place] [address] Phone Care Team Providers Care Sports Apparel Internship Name Role Phone Beau Clement MD Unavailable [phone]- [phone] Beau Clement MD Primary Care Provid er Reason for Visit * Consultation (Routine) - Closed Specialty Diagnoses / Procedures Referred By Contac t Referred To Contact Ophthalmology Diagnoses Cataract of both eyes, unspecified cataract type Beau Clement MD [address] [place] [address] Phone: tel: fax: Tino Puckett MD [address] [facility] [address] [place] [address] Phone: tel: fax: Referral ID Status Reason Start Date Expiration Date V isits Requested Visits Authorized [id number] Closed Specialty Services Required 08/14/2019 08/14/2020 6 6 Encounter Details Date Type Department Care Team (Late st Contact Info) Description 09/25/2019 8:00 AM CDT Office Visit [facility] Ophthalmology [address] [facility] 6th [place] [address] Tino Puckett MD [address] [address] Age-related nuclear cataract of left eye (Primary Dx); Cataract of both eyes, unspecified cataract type Social History Tobacco Use Types Packs/Day Years Used Date Smoking Tobacco: Never Smokeless Tobacco: Never Alcohol Use Standard Drinks/Week Comments Not Currently 0 (1 standard drink = 0.6 oz pur e alcohol) Comments No Sex and Gender Information Value Date Recorded Sex Assigned at Not on file 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 documented in this encounter Progress Notes * Tino Puckett MD - 09/25/2019 8:00 AM CDT Assessment/Plan Diagnoses and all orders for this visit: Age-related nuclear cataract of left eye (Primary) Assessment & Plan: Here for second opinion for blurred vision OU x 1 month, also light sensitive & feels sore @ times. H/o Cataract surgery OD [address] Manjarrez. Mild PCO right eye (OD) Moderate NS with good vision with correction No age-related macular degeneration (AMD) or optic nerve (ON) cupping Reassurance RTC prn Cataract of Left eye, Felipe Puckett MD - documented in this encounter Miscellaneous Notes * Assessment & Plan Note - Tino Puckett MD - 09/25/2019 8:47 AM CDT Associated Problem(s): Age-related nuclear cataract of left eye (Resolved 05/21/2022) Here for second opinion for blurred vision OU x 1 month, also light sensitive & feels sore @ times. H/o Cataract surgery OD [address] Manjarrez. Mild PCO right eye (OD) Moderate NS with good vision with correction No age-related macular degeneration (AMD) or optic nerve (ON) cupping Reassurance RTC prn documented in this encounter Plan of Treatment Not on file documented as of this encounter Visit Diagnoses Diagnosis Age-related nuclear cataract of left eye- Primary Cataract of both eyes, unspecified cataract type documented in this encounter Discontinued Medications Medication Sig Discontinue Reason Start Date End Da te multivitamin (MULTIPLE VITAMINS ORAL) Take 1 capsule by mouth daily Duplicate order 09/25/2019 documented as of this encounter Historical Medications * This list may reflect changes made after this encounter. multivitamin (MULTIPLE VITAMINS ORAL) Take 1 capsule by mouth daily 09/25/2019 added in this encounter Orders Outpatient Referral Count Last Ordered Date Fir st Ordered Date AMB REFERRAL TO OPHTHALMOLOGY 1 09/25/2019 documented in this encounter Eye Exam Visual Acuity (Snellen - Linear) Right eye Left eye Dist cc 20/30 20/40 Correction: Glasses Tonometry (Tonopen, 8:18 AM) Right eye Left eye Pressure 15 15 Pupils Pupils Dark Light APD Right eye PERRL 4.5 3.5 None Left eye PERRL 4.5 3.5 None Visual Torres Right eye Left eye Full Full Extraocular Movement Right eye Left eye Full, Ortho Full, Ortho Neuro/Psych Oriented x3: Yes Mood/Affect: Normal Dilation Both eyes: 1.0% Mydriacyl @ 8:18 AM Slit Lamp Exam Right eye Left eye Lids/Lashes mild MGD mild MGD Conjunctiva/Sclera White and quiet White and rodney et Cornea Clear Clear Anterior Chamber Deep and quiet Deep and quiet Iris Round and reactive Round and deuce ctive Lens PCIOL innplace with peripheral P CO 2+ NS Fundus Exam Right eye Left eye Disc Normal Normal C/D Ratio 0.2 0.2 Macula Normal Normal Vessels Normal Normal Periphery Normal Normal Wearing Rx Sphere Cylinder [place] Add Right eye -0.50 +0.50 153 +2.25 Left eye -1.00 +0.75 003 +2.25 Type: PAL Manifest Refraction Sphere Cylinder [place]a Dist VA Add Near VA Right eye -0.75 Sphere 20/20-2 +2.50 J1 Left eye -0.50 +0.25 015 20/25 +2.50 J1 Final Rx Sphere Cylinder [place]a Dist VA Add Near VA Right eye -0.75 Sphere 20/20-2 +2.50 J1 Left eye -0.50 +0.25 015 20/25 +2.50 J1 Care Teams Sports Apparel Internship Relationship Specialty Start Date End Date Beau Clement MD [address] [place] [address] PCP - Essence Attributed PCP 03/08/17 Beau Clement MD [address] [place] [address] PCP - General Family Medicine 07/13/18 documented as of this encounter
--- OUTSIDE RECORDS SUMMARY | 2024-03-18 22:43 | XMS_ITS | Encounter Summary ---
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 Historical Provider Final Res ult documented in this encounter Visit Diagnoses Not on filedocumented in this encounter Care Teams Car Framer Relationship Specialty Start Date End Date Beau Clement MD [address] [place] [address] PCP - Essence Attributed PCP 03/08/17 Beau Clement MD [address] [place], [place] [id number] PCP - General Family Medicine 07/13/18 documented as of this encounter
--- OUTSIDE RECORDS SUMMARY | 2024-03-18 22:43 | XMS_ITS | Encounter Summary ---
Author Organization [facility] Address [address] [facility] [address] [place] [address] Care Team Providers Care Watch Repair Person Name Role Phone Beau Clement MD Unavailable + [phone] Beau Clement MD Primary Care Provid er Encounter Details Date Type Department Care Team (Late st Contact Info) Description 07/21/2019 Orders Only [facility] Family Medicine [address] [phone] Beau Clement MD [address] [address] Right foot pain (Primary Dx); Swelling of right foot Social History Tobacco Use Types Packs/Day Years Used Date Smoking Tobacco: Never Smokeless Tobacco: Never Alcohol Use Standard Drinks/Week Comments Not Currently 0 (1 standard drink = 0.6 oz pur e alcohol) Comments No Sex and Gender Information Value Date Recorded Sex Assigned at Not on file 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 Gender Identity Female 08/22/2019 6:09 AM CDT Sexual Orientation Straight 08/22/2019 6: 09 AM CDT documented as of this encounter Progress Notes * Beau Clement MD - 07/21/2019 4:10 PM CDT Consult placed documented in this encounter Plan of Treatment Not on file documented as of this encounter Visit Diagnoses Diagnosis Right foot pain- Primary Pain in soft tissues of limb Swelling of right foot documented in this encounter Care Teams Watch Repair Person Relationship Specialty Start Date End Date Beau Clement MD [address] [place] [address] PCP - Essence Attributed PCP 03/08/17 Beau Clement MD [address] [place] [address] PCP - General Family Medicine 07/13/18 documented as of this encounter
--- OUTSIDE RECORDS SUMMARY | 2024-03-18 22:43 | XMS_ITS | Encounter Summary ---
Author Organization [facility] Address [address] [facility] [address] [place] [address] Care Team Providers Care Forest Technician Name Role Phone Beau Clement MD Unavailable +- [phone] Beau Clement MD Primary Care Provid er Reason for Visit * Reason Onset Date Comments appt sched 07-24-19 Essence 07/19/2019 Encounter Details Date Type Department Care Team (Late st Contact Info) Description 07/19/2019 Telephone [facility] Family Medicine [address] [phone] Beau Clement MD [address] [address] appt sched 07-24-19 Essence Social History Tobacco Use Types Packs/Day Years Used Date Smoking Tobacco: Never Smokeless Tobacco: Never Alcohol Use Standard Drinks/Week Comments Not Currently 0 (1 standard drink = 0.6 oz pur e alcohol) Comments No Sex and Gender Information Value Date Recorded Sex Assigned at Not on file 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 Gender Identity Female 08/22/2019 6:09 AM CDT Sexual Orientation Straight 08/22/2019 6: 09 AM CDT documented as of this encounter Ordered Prescriptions Prescription Sig Dispense Quantity Refills Last Filled Start Date End Date metoprolol XL (TOPROL-XL) 25 mg extended release tablet Take 1 tablet (25 mg total) by mouth daily 90 tablet 3 07/19/2019 06/04/2020 atorvastatin (LIPITOR) 10 mg tablet Take 1 tablet (10 mg total) by mouth daily 90 tablet 3 07/19/2019 06/04/2020 documented in this encounter Miscellaneous Notes * Telephone Encounter - Lisa Sepulveda - 07/24/2019 8:27 AM CDT Records faxed. * Telephone Encounter - Beau Clement MD - 07/21/2019 4:11 PM CDT Consult placed * Telephone Encounter - Lisa Sepulveda - 07/21/2019 10:[address] referral for Dr. Gabriel in chart. Pt has an appt 07/24/19. * Telephone Encounter - Miriam Carlton MA - 07/19/2019 2:26 PM CDT Requesting refill. Cosigned by Beau Clement MD at 07/19/2019 4:23 PM CDT * Telephone Encounter - Lisa Sepulveda - 07/19/2019 1:21 PM CDT Essence referral submitted and approved. Please place referral in chart for [id number]. Cosigned by Beau Clement MD at 07/19/2019 4:23 PM CDT * Telephone Encounter - Jennifer Huizar - 07/19/2019 10:[address] 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 Thanks. Cosigned by Beau Clement MD at 07/19/2019 4:23 PM CDT documented in this encounter Plan of Treatment Not on file documented as of this encounter Visit Diagnoses Not on filedocumented in this encounter Discontinued Medications Medication Sig Discontinue Reason Start Date End Da te atorvastatin (LIPITOR) 10 mg tablet TAKE ONE TABLET BY MOUTH ONCE DAILY Reorder 07/19/2019 07/19/2019 metoprolol XL (TOPROL-XL) 25 mg extended release tablet TAKE ONE TABLET BY MOUTH ONCE DAILY Reorder 07/19/2019 07/19/2019 documented as of this encounter Care Teams Forest Technician Relationship Specialty Start Date End Date Beau Clement MD [address] [place] [address] PCP - Essence Attributed PCP 03/08/17 Beau Clement MD [address] [place] [address] PCP - General Family Medicine 07/13/18 documented as of this encounter
--- OUTSIDE RECORDS SUMMARY | 2024-03-18 22:43 | XMS_ITS | Encounter Summary ---
Author Organization [facility] Address [address] [place] [address] Care Team Providers Care Milking Machine Operator Name Role Phone Unavailable Primary Care Provider Unavailabl e Encounter Details Date Type Department Care Team (Latest Contact Info) Description 11/11/2015 7:08 AM CDT - 11/11/2015 11:27 AM CDT Hospital Encounter [facility] Felipe Boss MD [address] [place] [address] Cellulitis of face; Essential (primary) hypertension; senior care current use of aspirin Social History Tobacco Use Types Packs/Day Years Used Date Smoking Tobacco: Never Assessed Comments Unknown Sex and Gender Information Value Date Recorded Sex Assigned at Not on file 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 Gender Identity Female 08/22/2019 6:09 AM CDT Sexual Orientation Straight 08/22/2019 6: 09 AM CDT documented as of this encounter Last Filed Vital Signs Vital Sign Reading Time Taken Comments Blood Pressure 147/94 11/11/2015 7:10 AM CDT Pulse 88 11/11/2015 7:10 AM CDT Temperature 37.1 ??C (98.7 ??F) 11/11/2015 7:10 AM CD T Respiratory Rate - - Oxygen Saturation 97% 11/11/2015 7:10 AM CDT Inhaled Oxygen Concentration - - Weight 62.6 kg (138 lb) 11/11/2015 7:10 AM CDT Height 160 cm (5' 3 ) 11/11/2015 7:10 AM CDT Body Mass Index 24.45 11/11/2015 7:10 AM CDT documented in this encounter Plan of Treatment Not on file documented as of this encounter Procedures Procedure Name Priority Date/Time Associated Diagnosis Comments CBC WITH AUTO DIFFERENTIAL Routine 11/11/2015 7:40 AM CDT COMPREHENSIVE METABOLIC PANEL Routine 11/11/2015 7:[address] FACIAL BONES W CONTRAST Routine 11/11/2015 12:00 AM CDT documented in this encounter Results * (ABNORMAL) Comprehensive metabolic panel (11/11/2015 7:40 AM CDT) Sodium 138 135 - 145 mmol/L 11/11/2015 8:15 AM [employer] HISTORICAL RESULTS Potassium 4.0 3.3 - 5.1 mmol/L 11/11/2015 8:15 AM [employer] HISTORICAL RESULTS Chloride 97 96 - 108 mmol/L 11/11/2015 8:15 AM [employer] HISTORICAL RESULTS Carbon Dioxide 26 22 - 32 mmol/L 11/11/2015 8:15 AM [employer] HISTORICAL RESULTS Anion Gap 15 7 - 16 11/11/2015 8:15 AM [employer] HISTORICAL RESULTS Glucose 114(H) 70 - 100 mg/dL 11/11/2015 8:15 AM [employer] HISTORICAL RESULTS BUN 10 8 - 23 mg/dL 11/11/2015 8:15 AM [employer] HISTORICAL RESULTS Creatinine 0.8 0.5 - 1.1 mg/dL 11/11/2015 8:15 AM [employer] HISTORICAL RESULTS Comment: NOTE: Estimated GFR (Cockroft-Gault) will NOT be calculated unless patient Height and Weight were entered. Also, Kidney Disease Stage (GFR) and Estimated GFR (Cockroft-Gault) will NOT be calculated if Creatinine result is <0.2. Kidney Disease Stage 76 mL/MIN 11/11/2015 8:15 AM [employer] HISTORICAL RESULTS Comment: NOTE; ??The GFR is an estimated [...] ? Kidney failure or on dialysis @ Est GFR (Cockcroft-G) 59 ml/MIN 11/11/2015 8:15 AM [facility] Calcium 9.7 8.8 - 10.2 mg/dL 11/11/2015 8:15 AM [facility] Total Protein 8.1 6.4 - 8.3 g/dL 11/11/2015 8:15 AM [facility] Albumin 4.1 3.5 - 5.2 g/dL Globulin 4.0(H) 2.3 - 3.5 gm/dL 11/11/2015 8:15 AM [facility] Albumin/Globulin Ratio 1.0(L) 1.1 - 1.8 11/11/2015 8:15 AM [facility] Total Bilirubin 0.5 0.0 - 1.2 mg/dL 11/11/2015 8:15 AM [facility] AST 21 0 - 32 U/L 11/11/2015 8:15 AM [facility] Comment: HEMOLYZED: Hemolysis interferes with the above test. ?? VERY SL HEMOLYSIS ALT 12 0 - 33 U/L 11/11/2015 8:15 AM [facility] Alkaline Phosphatase 70 35 - 104 U/L 11/11/2015 8:15 AM CDT [employer] HISTORICAL RESULTS 11/11/2015 7:40 AM CDT 11/11/2015 7:47 AM CDT Felipe Boss MD LAB BLOOD ORDERABLES Fin al Result [facility] HISTORICAL RESULTS * (ABNORMAL) CBC with auto differential (11/11/2015 7:40 AM CDT) WBC 10.1 4.6 - 10.2 x10 3/ul 11/11/2015 7:51 AM CDT [employer] HISTORICAL RESULTS RBC 4.29 3.76 - 4.80 x10 6/ul 11/11/2015 7:51 AM CDT [facility] HISTORICAL RESULTS Hemoglobin 13.8 11.0 - 15.0 g/dl 11/11/2015 7:51 AM CDT [employer] HISTORICAL RESULTS Hct 41.4 33.0 - 43.0 % 11/11/2015 7:51 AM CDT [employer] HISTORICAL RESULTS MCV 96.5 80.0 - 97.0 fl 11/11/2015 7:51 AM CDT [facility] [employer] HISTORICAL RESULTS MCH 32.2(H) 27.0 - 31.2 pg 11/11/2015 7:51 AM CDT [employer] HISTORICAL RESULTS MCHC 33.3 31.8 - 35.4 g/dl 11/11/2015 7:51 AM CDT [employer] HISTORICAL RESULTS RDW 13.8 11.6 - 14.8 % 11/11/2015 7:51 AM CDT [employer] HISTORICAL RESULTS Plt Count 335 124 - 400 x10 3/ul 11/11/2015 7:51 AM CDT [employer] HISTORICAL RESULTS MPV 8.5 7.4 - 10.4 fl 11/11/2015 7:51 AM CDT [employer] HISTORICAL RESULTS Neut % 69.9 37.0 - 85.0 % 11/11/2015 7:51 AM CDT [employer] HISTORICAL RESULTS Immature Gran % 0.4 0.0 - 3.0 % 11/11/2015 7:51 AM CDT [employer] HISTORICAL RESULTS Lymph % 17.6 5.0 - 45.0 % 11/11/2015 7:51 AM T [facility] HISTORICAL RESULTS Dupage % 9.8 3.0 - 15.0 % 11/11/2015 7:51 AM T [facility] HISTORICAL RESULTS Eos % 1.6 0.0 - 7.0 % 11/11/2015 7:51 AM T [facility] HISTORICAL RESULTS Baso % 0.7 0.0 - 2.0 % 11/11/2015 7:51 AM T [facility] HISTORICAL RESULTS Absolute Neuts (auto) 7.1 1.7 - 8.7 x10 3/ul 11/11/2015 7:51 AM T [facility] HISTORICAL RESULTS Immature Gran # 0.0 0.0 - 0.3 x10 3/ul 11/11/2015 7:51 AM T [facility] HISTORICAL RESULTS Absolute Lymphs (auto) 1.8 0.2 - 4.6 x10 3/ul 11/11/2015 7:51 AM T [facility] HISTORICAL RESULTS Absolute Monos (auto) 1.0 0.1 - 1.5 x10 3/ul 11/11/2015 7:51 AM T [facility] HISTORICAL RESULTS Absolute Eos (auto) 0.2 0.0 - 0.7 x10 3/ul 11/11/2015 7:51 AM T [facility] HISTORICAL RESULTS Absolute Basos (auto) 0.1 0.0 - 0.2 x10 3/ul 11/11/2015 7:51 AM T [facility] HISTORICAL RESULTS 11/11/2015 7:40 AM CDT 11/11/2015 7:47 AM CDT us Felipe Boss MD LAB BLOOD ORDERABLES Fin al Result [facility] HISTORICAL RESULTS * CT Facial Bones W Contrast (11/11/2015 12:00 AM CDT) Anatomical Region Laterality Modality Head and Neck N/A Computed Tomogra phy 11/11/2015 Impressions 11/11/2015 9:00 AM CDT ??Presumed odontogenic cellulitis of the right jaw related to small periapical abscess or periodontal disease of tooth #22. ??No definite soft tissue abscess, although extensive dental hardware artifact limits detail. THIS IS AN ELECTRONICALLY VERIFIED REPORT 11/11/2015 8:57 AM: ??Trenton Kang M.D. ?? Trenton Kang M.D. NH:nh 08:57 AM 08:57 AM PINTO [EOD] Narrative 11/11/2015 9:00 AM CDT EXAMINATION: ??CT face with IV contrast HISTORY: ??Right jaw swelling beginning 2 days ago, dental work performed 3 weeks ago. TECHNIQUE: ??CT of the face was performed with IV contrast. ??100 mL Omnipaque 350 was instilled intravenously into the left hand IV without complications. FINDINGS: ??Comparison made with mandible radiographs 08/27/2015. This exam is mildly degraded by motion artifact. ??There is markedly limited evaluation of the dentition due to significant artifact from dental hardware. There is a small periapical lucency around tooth #22 (right mandibular canine). ??This area was not well demonstrated on the prior radiographs. ??There is no evidence of cortical breakthrough in the mandible. ??Soft tissue swelling is centered over this site. ??No discrete soft tissue abscess is noted, although detail is degraded by artifact. ??There is a mildly enlarged right submandibular lymph node measuring 1.2 cm, most likely reactive. ??There is mucosal thickening in the left frontal recess. ??Maxillary and sphenoid sinuses are clear. ??Mastoid air cells and middle ears are clear. ??There is moderate to severe multilevel cervical spondylosis. ??Right vertebral artery is dominant. Procedure Note Provider, MD Anny - 07/24/2020 EXAMINATION: CT face with IV contrast HISTORY: Right jaw swelling beginning 2 days ago, dental work performed 3 weeks ago. TECHNIQUE: CT of the face was performed with IV contrast. 100 mLOmnipaque 350 was instilled intravenously into the left hand IV withoutcomplications. FINDINGS: Comparison made with mandible radiographs 08/27/2015. This examis mildly degraded by motion artifact. There is markedly limited evaluationof the dentition due to significant artifact from dental hardware. There is a small periapical lucency around tooth #22 (right mandibular canine). This area was not well demonstrated on the prior radiographs.There is no evidence of cortical breakthrough in the mandible. Soft tissueswelling is centered over this site. No discrete soft tissue abscess is noted, although detail is degraded by artifact. There is a mildly enlarged right submandibular lymph node measuring 1.2 cm, most likely reactive. There is mucosal thickening in the left frontal recess. Maxillary and sphenoidsinuses are clear. Mastoid air cells and middle ears are clear. There ismoderate to severe multilevel cervical spondylosis. Right vertebral artery isdominant. IMPRESSION: Presumed odontogenic cellulitis of the right jaw related tosmall periapical abscess or periodontal disease of tooth #22. No definite soft tissue abscess, although extensive dental hardware artifact limitsdetail. THIS IS AN ELECTRONICALLY VERIFIED REPORT 11/11/2015 8:57 AM: Trenton Kang M.D. Trenton Kang M.D. 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
--- OUTSIDE RECORDS SUMMARY | 2024-03-18 22:43 | XMS_ITS | Encounter Summary ---
Author Organization [facility] Address [address] [place] [address] Care Team Providers Care Strategic Communications Manager Name Role Phone Unavailable Primary Care Provider Unavailabl e Encounter Details Date Type Department Care Team (Latest Contact Info) Description 06/08/2016 8:00 AM CDT Hospital Encounter [facility] Raquel Garcia MD [address] [facility] [address] [address] Solitary pulmonary nodule Social History Tobacco Use Types Packs/Day Years Used Date Smoking Tobacco: Never Assessed Comments Unknown Sex and Gender Information Value Date Recorded Sex Assigned at Not on file 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 1. ??Again seen is scarring of the upper lobes and apex of the lungs with an occasional small pulmonary nodule less than 3 mm in size as above. ??These are completely stable dating back to 05/08/2014. ??FDC stability suggests benign etiology. Automated exposure control was used as a dose optimization technique for this examination. THIS IS AN ELECTRONICALLY VERIFIED REPORT 06/08/2016 8:43 AM: ??Jasen Stallings M.D. ?? Jasen Stallings M.D. MJ:yasmani 08:43 AM 08:43 AM BM [EOD] Narrative 06/08/2016 8:47 AM CDT EXAMINATION: ??CT chest with IV contrast. HISTORY: ??Indeterminate pulmonary nodules on prior CT of the chest. COMPARISON: ??06/03/2015 and 05/08/2014 TECHNIQUE: ??CT images of the chest were obtained after IV administration of 100 mL of Omnipaque 350 given at the right antecubital fossa IV site. FINDINGS: ??Lung windows demonstrate a patent airway. ??Again seen is mild scarring of the left apex and upper lobe. ??This appearance remains stable. ??1 mm density peripheral aspect left lower lobe, image 42 remains unchanged. ?? There is stable scarring of the right apex and upper lobe which is also stable. ??3 mm nodule right upper lobe periphery, unchanged on axial image 21. 2 mm nodule peripheral aspect right lower lobe, axial image 38 remains unchanged. Mediastinal windows demonstrate a normal appearance of the thyroid gland. ?? There is no adenopathy by size criteria. ??The thoracic aorta demonstrates no aneurysmal dilatation. ??Mild atherosclerotic change of the descending thoracic aorta. ??No pericardial or pleural effusion. ??Limited view through the extreme upper abdomen demonstrates no focal abnormality. ??Osseous structures demonstrate no focal suspicious lytic or blastic lesion. ??Mild spondylosis thoracic spine this is more moderate on limited view of L1-L2, unchanged.. Procedure Note Provider, MD Anny - 07/24/2020 EXAMINATION: CT chest with IV contrast. HISTORY: Indeterminate pulmonary nodules on prior CT of the chest. COMPARISON: 06/03/2015 and 05/08/2014 TECHNIQUE: CT images of the chest were obtained after IV administrationof 100 mL of Omnipaque 350 given at the right antecubital fossa IV site. FINDINGS: Lung windows demonstrate a patent airway. Again seen is mild scarring of the left apex and upper lobe. This appearance remains stable.1 mm density peripheral aspect left lower lobe, image 42 remains unchanged. There is stable scarring of the right apex and upper lobe which is also stable. 3 mm nodule right upper lobe periphery, unchanged on axial image21. 2 mm nodule peripheral aspect right lower lobe, axial image 38 remains unchanged. Mediastinal windows demonstrate a normal appearance of the thyroid gland. There is no adenopathy by size criteria. The thoracic aorta demonstratesno aneurysmal dilatation. Mild atherosclerotic change of the descendingthoracic aorta. No pericardial or pleural effusion. Limited view through theextreme upper abdomen demonstrates no focal abnormality. Osseous structures demonstrate no focal suspicious lytic or blastic lesion. Mild spondylosis thoracic spine this is more moderate on limited view of L1-L2,unchanged.. IMPRESSION: 1. Again seen is scarring of the upper lobes and apex of the lungs withan occasional small pulmonary nodule less than 3 mm in size as above. Theseare completely stable dating back to 05/08/2014. bed bug exterminator stability suggests benign etiology. Automated exposure control was used as a dose optimization technique forthis examination. THIS IS AN ELECTRONICALLY VERIFIED REPORT 06/08/2016 8:43 AM: Jasen Stallings M.D. Jasen Stallings M.D. MJ:yasmani 08:43 AM 08:43 AM [facility] [EOD] Raquel Goff MD IMG CT PROCEDURES Final Result documented in this encounter Visit Diagnoses Diagnosis Solitary pulmonary nodule documented in this encounter
--- OUTSIDE RECORDS SUMMARY | 2024-03-18 22:43 | XMS_ITS | Encounter Summary ---
Author Organization [facility] Address [address] [facility] [address] [place] [id number] Care Team Providers Care Litigation Legal Secretary Name Role Phone Beau Clement MD Unavailable + [phone] Beau Clement MD Primary Care Provid er Reason for Referral * Diagnostic Imaging (Routine) - Closed Specialty Diagnoses / Procedures Referred By Contac t Referred To Contact Diagnoses Chronic left SI joint pain Procedures XR Sacroiliac Joints 3 Or More Vws Beau Clement MD [address] [place] [address] Phone: tel: fax: [address] [phone] Referral ID Status Reason Start Date Expiration Date Visits Re quested Visits Authorized [id number] Closed 11/07/2020 12/07/2021 1 1 Reason for Visit * Reason Comments Hip Pain pt stated she's here for left hip pain Encounter Details Date Type Department Care Team (Late st Contact Info) Description 11/07/2020 1:15 PM CDT Office Visit [facility] Family Medicine [address] [phone] Beau Clement MD [address] [place], [place] [id number] Chronic left SI joint pain (Primary Dx) Social History Tobacco Use Types [...] on file 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 Gender Identity Female 08/22/2019 6:09 AM CDT Sexual Orientation Straight 08/22/2019 6: 09 AM CDT documented as of this encounter Last Filed Vital Signs Vital Sign Reading Time Taken Comments Blood Pressure 128/78 11/07/2020 12:58 PM CDT Pulse 75 11/07/2020 12:58 PM CDT Temperature 36.7 ??C (98 ??F) 11/07/2020 12: 58 PM CDT Respiratory Rate 17 11/07/2020 12:5 8 PM CDT Oxygen Saturation 98% 11/07/2020 12: 58 PM CDT Inhaled Oxygen Concentration - - Weight 51.6 kg (113 lb 11.2 oz) 021 12:58 PM CDT Height 157.5 cm (5' 2 ) 11/07/2020 12:5 8 PM CDT Body Mass Index 20.8 11/07/2020 12:58 PM CDT documented in this encounter Ordered Prescriptions Prescription Sig Dispense Quantity Refills Last Filled Start Date End Date methylPREDNISolone (MEDROL DOSEPACK) 4 mg DosepackIndication s:Chronic left SI joint pain Take as directed on package. 21 tablet 11/07/2020 2 documented in this encounter Progress Notes * Beau Clement MD - 11/07/2020 1:15 PM CDT Subjective/Objective Patient ID: Dottie Bryant is a 75 y.o. female. Chief Complaint Chief Complaint Patient presents with ??? Hip Pain pt stated she's here for left hip pain HPI The patient complains of several days of worsening low back/left hip pain. She has had this pain before, she has had it on and off for years. Recently, a large 0 branch fell in their backyard, and she did a lot of work picking up the debris, and this worsened her hip/back pain. She denies any radiation of the pain. There is no weakness in the hip or leg. She denies any paresthesia. The patient's past medical history, surgical history, [...] hematuria and urgency. Musculoskeletal: Positive for arthralgias (Left hip/lower back) and back pain. Negative for joint swelling [...] normal range of motion and neck supple. Lumbar back: Bony tenderness (Tender over the left SI joint) present. No deformity. Normal range ofmotion. Left hip: No deformity, tenderness or bony tenderness (No greater trochanter tenderness). Normal strength. Right lower leg: No edema. Left lower [...] and all orders for this visit: Chronic left SI joint pain (Primary) - XR Sacroiliac Joints 3 Or More Vws; Future - methylPREDNISolone (MEDROL DOSEPACK) 4 mg Dosepack; Take as directed on package. Plan: 1. Acute on chronic left SI joint pain: Discussed the diagnosis, prognosis, and treatment options with the patient. Alternate heat and ice. She does not tolerate NSAIDs particularly well, so acetaminophen as our first line for pain. Medrol Dosepak for inflammation. Check x-rays to assess the underlying anatomy of the SI joint. Consider injection therapy. documented in this encounter Plan of Treatment Not on file documented as of this encounter Results * XR Sacroiliac Joints [...] AM T: ??11/08/2020 11:23 AM Report ID: [id number] Reading Location: ??[id number] Procedure Note Jasen Quick MD - 11/08/2020 [...] Jasen Quick M.D. ML: ALYSON Report ID: [id number] Reading Location: [place] [address] Beau Clement MD IMG XR PROCEDURES Fi nal Result documented in this encounter Visit Diagnoses Diagnosis Chronic left SI joint pain- Primary Disorders of sacrum Chronic left SI joint pain Disorders of sacrum documented in this encounter Care Teams Litigation Legal Secretary Relationship Specialty Start Date End Date Beau Clement MD [address] [place] [address] PCP - Essence Attributed PCP 03/08/17 Beau Clement MD [address] [place] [address] PCP - General Family Medicine 07/13/18 documented as of this encounter
--- OUTSIDE RECORDS SUMMARY | 2024-03-18 22:44 | XMS_ITS | Encounter Summary ---
Author Organization [facility] Healthcare Address [address] [place] [address] Care Team Providers Care Indigo Vat Tender Cloth Name Role Phone Unavailable Primary Care Provider Unavailabl e Encounter Details Date Type Department Care Team (Latest Contact Info) Description 10/15/2014 8:45 AM CDT Hospital Encounter [facility] OP Guanaco Hicks MD [address] [facility] [address] [address] Varicose veins of lower extremities with inflammation; Other postprocedural states Social History Tobacco Use Types Packs/Day Years Used Date Smoking Tobacco: Never Assessed Comments Unknown Sex and Gender Information Value Date Recorded Sex Assigned at Not on file 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 Gender Identity Female 08/22/2019 6:09 AM CDT Sexual Orientation Straight 08/22/2019 6: 09 AM CDT documented as of this encounter Plan of Treatment Not on file documented as of this encounter Procedures Procedure Name Priority Date/Time Associated Diagnosis Comments US VEIN DUPLEX LOWER EXTREMITY RIGHT LIMITED Routine 10/15/2014 8:49 AM CDT documented in this encounter Results * US Vein Duplex Lower Extremity Right Limited (10/15/2014 8:49 AM CDT) Anatomical Region Laterality Modality Vascular Right Ultrasound 10/15/2014 8:49 AM CDT Narrative 10/15/2014 2:33 PM CDT DATE OF SERVICE: 10/15/2014 Right lower extremity venous duplex. FINDINGS: ??The right common femoral vein has spontaneous flow, which is phasic and is compressible. ??The great saphenous vein has no flow. CONCLUSION: ??No evidence of deep venous thrombosis status post endovenous laser ablation of the right great saphenous vein. NTS Job: [id number] Dictated By: Guanaco Hicks MD Dictated For: Guanaco Hicks MD [EOD] Procedure Note Provider, MD Anny - 07/24/2020 DATE OF SERVICE: 10/15/2014 Right lower extremity venous duplex. FINDINGS: The right common femoral vein has spontaneous flow, which isphasic and is compressible. The great saphenous vein has no flow. CONCLUSION: No evidence of deep venous thrombosis status post endovenouslaser ablation of the right great saphenous vein. NTS Job: [id number] Dictated By: Guanaco Hicks MD Dictated For: Guanaco Hicks MD [EOD] us Guanaco Hicks MD IMG US PROCEDURES Final Re sult documented in this encounter Visit Diagnoses Diagnosis Varicose veins of lower extremities with inflammation Other postprocedural states documented in this encounter
--- OUTSIDE RECORDS SUMMARY | 2024-03-18 22:44 | XMS_ITS | Encounter Summary ---
Author Organization [facility] Care Team Providers Care News Content Specialist Name Role Phone Unavailable Primary Care Provider Unavailabl e Encounter Details Date Type Department Care Team (Late st Contact Info) Description 12/12/2008 12:54 PM CDT - 12/12/2008 4:00 PM CDT Hospital Encounter [facility] Jackie, Timothy Klein MD 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
--- OUTSIDE RECORDS SUMMARY | 2024-03-18 22:44 | XMS_ITS | Encounter Summary ---
Author Organization [facility] Healthcare Address [address] [place] [address] Care Team Providers Care Race Board Attendant Name Role Phone Unavailable Primary Care Provider Unavailabl e Encounter Details Date Type Department Care Team (Latest Contact Info) Description 11/02/2014 7:31 AM CDT Hospital Encounter 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
--- OUTSIDE RECORDS SUMMARY | 2024-03-18 22:44 | XMS_ITS | Encounter Summary ---
Author Organization [facility] Healthcare Address [address] [place] [address] Care Team Providers Care Pressroom Foreman Name Role Phone Unavailable Primary Care Provider Unavailabl e Encounter Details Date Type Department Care Team (Latest Contact Info) Description 08/09/2014 1:05 PM CDT Hospital Encounter [facility] OP Guanaco Hicks MD [address] [facility] [address] [address] Varicose veins of lower extremities with inflammation Social History Tobacco Use Types Packs/Day Years Used Date Smoking Tobacco: Never Assessed Comments Unknown Sex and Gender Information Value Date Recorded Sex Assigned at Not on file 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 ??Significant reflux noted throughout the right great saphenous vein and the bilateral small saphenous veins as noted above as well as in the anterior vein in the left thigh. 2. ??Deep vein reflux noted bilateral common femoral, popliteal, posterior tibial and peroneal veins. NTS Job: [id number] Dictated By: Jarrett Garner MD Dictated For: Jarrett ??MD Pascual [EOD] Narrative 08/10/2014 1:06 PM CDT DATE OF SERVICE: 08/09/2014 LOWER EXTREMITY VENOUS DUPLEX AND REFLUX STUDY REASON FOR EXAM: ??454.1. COMMENTS ON THE RIGHT: ??Significant ??reflux noted throughout the right great saphenous vein duration of greater than 3 seconds. ??Vein diameter is 9.0, 7.1 and 4.6. ??Multiple varicosities are noted from above to below the knee. ??The right small saphenous vein also has significant reflux of 1 second with vein diameters of 3.0 and 3.0. ??The deep system shows spontaneous phasic flow probe rotation. ??Reflux is noted in the common femoral, popliteal, posterior tibial and peroneal veins. ??All veins are compressible. COMMENTS ON THE LEFT: ??Great saphenous vein was not visualized throughout its course. ??There is an anterior saphenous vein that is incompetent and duration greater than 3 seconds, measures 8.1 in its proximal segment, above the knee it measures 4.6. ??The left small saphenous vein has significant reflux of greater than 1 second throughout its course. ??Vein diameter of 2.1 and 2.5. ??The vein is noted to be thick walled. ?? The deep system shows spontaneous phasic flow with appropriate throughout. ??Reflux is noted in the left common femoral, popliteal, posterior tibial and peroneal veins. ??All veins are compressible. OVERALL Procedure Note Provider, MD Anny - 07/24/2020 DATE OF SERVICE: 08/09/2014 LOWER EXTREMITY VENOUS DUPLEX AND REFLUX STUDY REASON FOR EXAM: 454.1. COMMENTS ON THE RIGHT: Significant reflux noted throughout the rightgreat saphenous vein duration of greater than 3 seconds. Vein diameter is9.0, 7.1 and 4.6. Multiple varicosities are noted from above to below theknee. The right small saphenous vein also has significant reflux of 1second with vein diameters of 3.0 and 3.0. The deep system showsspontaneous phasic flow probe rotation. Reflux is noted in the commonfemoral, popliteal, posterior tibial and peroneal veins. All veins arecompressible. COMMENTS ON THE LEFT: Great saphenous vein was not visualized throughoutits course. There is an anterior saphenous vein that is incompetent andduration greater than 3 seconds, measures 8.1 in its proximal segment,above the knee it measures 4.6. The left small saphenous vein hassignificant reflux of greater than 1 second throughout its course. Veindiameter of 2.1 and 2.5. The vein is noted to be thick walled. The deep system shows spontaneous phasic flow with appropriate throughout. Reflux is noted in the left common femoral, popliteal,posterior tibial and peroneal veins. All veins are compressible. OVERALL IMPRESSION: 1. Significant reflux noted throughout the right great saphenous vein andthe bilateral small saphenous veins as noted above as well as in theanterior vein in the left thigh. 2. Deep vein reflux noted bilateral common femoral, popliteal, posteriortibial and peroneal veins. NTS Job: [id number] Dictated By: Jarrett Garner MD Dictated For: Jarrett Garner MD [EOD] [facility] Norman Hicks MD IMG US PROCEDURES Final Re sult documented in this encounter Visit Diagnoses Diagnosis Varicose veins of lower extremities with inflammation documented in this encounter
--- OUTSIDE RECORDS SUMMARY | 2024-03-18 22:44 | XMS_ITS | Encounter Summary ---
Author Organization [facility] Healthcare Address [address] [place] [address] Care Team Providers Care Plow Mechanic Name Role Phone Unavailable Primary Care Provider Unavailabl e Encounter Details Date Type Department Care Team (Latest Contact Info) Description 07/23/2014 1:55 PM CDT Hospital Encounter 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 Gender Identity Female 08/22/2019 6:09 AM CDT Sexual Orientation Straight 08/22/2019 6: 09 AM CDT documented as of this encounter Plan of Treatment Not on file documented as of this encounter Procedures Procedure Name Priority Date/Time Associated Diagnosis Comments XR FOOT RIGHT 3 OR MORE VIEWS Routine 07/23/2014 1:57 PM CDT documented in this encounter Results * XR Foot Right 3 or More Views (07/23/2014 1:57 PM CDT) Anatomical Region Laterality Modality Lower Extremities, Foot Right Radiogra phic Imaging 07/23/2014 1:57 PM CDT Narrative 07/23/2014 9:43 PM CDT Right foot 3 views HISTORY: ??Pain and swelling. FINDINGS: ??No comparison. There is soft tissue swelling over the fifth metatarsal-phalangeal joint area. There is a small ossific density projecting at the site of swelling at the lateral aspect of the talocalcaneal area. Dorsal tarsal spurring. Hammertoe positioning of the digits. Impression: ??Mild soft tissue changes at site of swelling along the lateral left foot. ??No definite osseous abnormality. ??Foot MRI may be beneficial to further characterize. THIS IS AN ELECTRONICALLY VERIFIED REPORT 07/23/2014 9:39 PM: ??Faiza James M.D. Faiza James M.D. Enoc 09:39 PM 09:39 PM CHR [EOD] Procedure Note Provider, MD Anny - 07/24/2020 Right foot 3 views HISTORY: Pain and swelling. FINDINGS: No comparison. There is soft tissue swelling over the fifth metatarsal-phalangeal jointarea. There is a small ossific density projecting at the site of swelling atthe lateral aspect of the talocalcaneal area. Dorsal tarsal spurring.Hammertoe positioning of the digits. Impression: Mild soft tissue changes at site of swelling along thelateral left foot. No definite osseous abnormality. Foot MRI may be beneficialto further characterize. THIS IS AN ELECTRONICALLY VERIFIED REPORT 07/23/2014 9:39 PM: Faiza James M.D. Mattie Machuca:alondra 09:39 PM 09:39 PM CHR [EOD] Guanaco Hicks MD IMG XR PROCEDURES Final Re sult documented in this encounter Visit Diagnoses Diagnosis Pain in soft tissues of limb Swelling of limb documented in this encounter
--- OUTSIDE RECORDS SUMMARY | 2024-03-18 22:44 | XMS_ITS | Encounter Summary ---
Author Organization [facility] Healthcare Address [address] [place] [address] Care Team Providers Care Costume Draper Name Role Phone Unavailable Primary Care Provider Unavailabl e Encounter Details Date Type Department Care Team (Latest Contact Info) Description 10/12/2014 9:08 AM CDT Hospital Encounter [facility] OP Guanaco Hicks MD [address] [facility] [address] [address] Venous (peripheral) insufficiency; Varicose veins of lower extremity with other complication; Varicose veins of lower extremities with inflammation Social History Tobacco Use Types Packs/Day Years Used Date Smoking Tobacco: Never Assessed Comments Unknown Sex and Gender Information Value Date Recorded Sex Assigned at Not on file 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
--- OUTSIDE RECORDS SUMMARY | 2024-03-18 22:44 | XMS_ITS | Encounter Summary ---
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; Other postprocedural states Social History Tobacco Use Types Packs/Day Years Used Date Smoking Tobacco: Never Assessed Comments Unknown Sex and Gender Information Value Date Recorded Sex Assigned at Not on file 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 Gender Identity Female 08/22/2019 6:09 AM CDT Sexual Orientation Straight 08/22/2019 6: 09 AM CDT documented as of this encounter Plan of Treatment Not on file documented as of this encounter Procedures Procedure Name Priority Date/Time Associated Diagnosis Comments US VEIN DUPLEX LOWER EXTREMITY BILATERAL COMPLETE Routine 11/05/2014 8:54 AM CDT documented in this encounter Results * US Vein Duplex Lower Extremity Bilateral Complete (11/05/2014 8:54 AM CDT) Anatomical Region Laterality Modality Vascular Bilateral Ultrasound 11/05/2014 8:54 AM CDT Narrative 11/09/2014 7:35 AM CDT DATE OF SERVICE: 11/05/2014 BILATERAL LOWER EXTREMITY VENOUS DUPLEX. REASON: ??History of varicosities. FINDINGS: ??The bilateral common femoral veins have spontaneous flow which is phasic and these vessels are compressible. ??The left common femoral vein has decreased compressibility due to a small amount of thrombus extending into the common femoral vein from the great saphenous vein. ??This extends for approximately 4 mm. CONCLUSION: ??No evidence of deep venous thrombosis in the right lower extremity status post endovenous laser ablation of the great saphenous vein. ??There is a small amount of thrombus in the left common femoral vein extending approximately 4 mm into the lumen but less than 50% which is consistent with a grade II thrombosis, status post endovenous laser ablation most likely due heat-induced injury. NTS Job: [id number] Dictated By: Guanaco Hicks MD Dictated For: Guanaco Hicks MD [EOD] Procedure Note Provider, MD Anny - 07/24/2020 DATE OF SERVICE: 11/05/2014 BILATERAL LOWER EXTREMITY VENOUS DUPLEX. REASON: History of varicosities. FINDINGS: The bilateral common femoral veins have spontaneous flow whichis phasic and these vessels are compressible. The left common femoralvein has decreased compressibility due to a small amount of thrombusextending into the common femoral vein from the great saphenous vein.This extends for approximately 4 mm. CONCLUSION: No evidence of deep venous thrombosis in the right lowerextremity status post endovenous laser ablation of the great saphenousvein. There is a small amount of thrombus in the left common femoral veinextending approximately 4 mm into the lumen but less than 50% which isconsistent with a grade II thrombosis, status post endovenous laserablation most likely due heat-induced injury. 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
--- OUTSIDE RECORDS SUMMARY | 2024-03-18 22:44 | XMS_ITS | Encounter Summary ---
Author Organization [facility] Healthcare Address [address] [place] [address] Care Team Providers Care Associate Spa Director Name Role Phone Unavailable Primary Care Provider Unavailabl e Encounter Details Date Type Department Care Team (Latest Contact Info) Description 05/08/2014 11:00 PM POT FIREMAN - 05/10/2014 5:05 PM POT FIREMAN Hospital Encounter [facility] Mayo Naik MD [address] [place] [id number] Other chest pain; Nonspecific (abnormal) findings on radiological and other examination of lung field; Hypertensive heart disease without congestive heart failure; Other and unspecified hyperlipidemia; Tietze's disease; Pleurisy; Other abnormal glucose; Degeneration of lumbar or lumbosacral intervertebral disc; Other premature beats; Hydronephrosis; Anxiety state; Encounter for long-term (current) use of other medications Social History Tobacco Use Types Packs/Day Years Used Date Smoking Tobacco: Never Assessed Comments Unknown Sex and Gender Information Value Date Recorded Sex Assigned at Not on file Legal Sex Female 8:34 AM POT FIREMAN Gender Identity Female 08/22/2019 6:09 AM CDT Sexual Orientation Straight 08/22/2019 6: 09 AM CDT documented as of this encounter Last Filed Vital Signs Vital Sign Reading Time Taken Comments Blood Pressure 136/78 05/09/2014 4:20 PM POT FIREMAN Pulse 69 05/09/2014 4:20 PM POT FIREMAN Temperature 36.8 ??C (98.2 ??F) 05/09/2014 4:20 PM CS T Respiratory Rate - - Oxygen Saturation 97% 05/09/2014 4:20 PM POT FIREMAN Inhaled Oxygen Concentration - - Weight 59 kg (130 lb) 05/09/2014 4:20 PM POT FIREMAN Height 154.9 cm (5' 1 ) 05/09/2014 4:20 PM POT FIREMAN Body Mass Index 24.56 05/09/2014 4:20 PM POT FIREMAN documented in this encounter Plan of Treatment Not on file documented as of this encounter Procedures Procedure Name Priority Date/Time Associated Diagnosis Comments HEMOGLOBIN A1C Routine 05/10/2014 6:06 AM POT FIREMAN INFLUENZA A/B ANTIGENS, RAPID Routine 05/10/2014 12:30 AM POT FIREMAN PROLACTIN Routine 05/09/2014 3:26 PM POT FIREMAN ERYTHROCYTE SEDIMENTATION RATE Routine 05/09/2014 3:26 PM POT FIREMAN CBC WITH AUTO DIFFERENTIAL Routine 05/09/2014 8:47 AM POT FIREMAN MAGNESIUM Routine 05/09/2014 8:47 AM POT FIREMAN BASIC METABOLIC PANEL Routine 05/09/2014 8:47 AM POT FIREMAN THYROID FUNCTION CASCADE Routine 05/09/2014 5:27 AM POT FIREMAN TROPONIN I Routine 05/09/2014 5:27 AM POT FIREMAN TRANSTHORACIC ECHO (TTE) COMPLETE W DOPPLER/CF Routine 05/09/2014 12:[address] ABDOMEN W CONTRAST Routine 05/09/2014 12:00 AM POT FIREMAN XR RIBS LEFT 2 VIEWS Routine 05/09/2014 12:00 AM POT FIREMAN THYROID PANEL Routine 05/08/2014 11:31 PM POT FIREMAN TROPONIN I Routine 05/08/2014 11:31 PM POT FIREMAN TNI WITH LIPID PANEL Routine 05/08/2014 5:32 PM POT FIREMAN HEMOGRAM WITH MANUAL DIFFERENTIAL Routine 05/08/2014 5:32 PM POT FIREMAN APTT Routine 05/08/2014 5:32 PM POT FIREMAN PROTIME-INR Routine 05/08/2014 5:32 PM POT FIREMAN D-DIMER, QUANTITATIVE Routine 05/08/2014 5:32 PM POT FIREMAN COMPREHENSIVE METABOLIC PANEL Routine 05/08/2014 5:32 PM POT FIREMAN CARDIOLOGY REPORT 05/08/2014 12: 00 AM POT FIREMAN XR CHEST 1 VIEW Routine 05/08/2014 12:[address] CHEST W CONTRAST Routine 05/08/2014 1 2:00 AM POT FIREMAN documented in this encounter Results * Hemoglobin A1c (05/10/2014 6:06 AM POT FIREMAN) [facility] Hemoglobin A1c % 5.7 4.8 - 5.9 % 05/10/2014 6:36 AM POT FIREMAN [facility] HISTORICAL RESULTS Comment: As of 2009 Method: ??MATHEUS Lisbeth 6000 using turbidometric inhibition immunoassay procedure. Results obtained are comparable to results obtained using previous methodology (HPLC). [place] [employer] recommends that the goal of therapy should be an A1C hemoglobin of <7%. Reevaluate the treatment regimen in patients with an A1C >8%. 05/10/2014 6:06 AM POT FIREMAN 05/10/2014 6:23 AM POT FIREMAN us Melo Horowitz MD LAB BLOOD ORDERABLES Final Result [facility] HISTORICAL RESULTS * Influenza A/B antigens, rapid (05/10/2014 12:30 AM POT FIREMAN) [facility] Influenza A Ag NEGATIVE NEGATIVE 05/10/2014 1:28 AM POT FIREMAN [facility] HISTORICAL RESULTS Influenza B Ag NEGATIVE NEGATIVE 05/10/2014 1:28 AM POT FIREMAN [facility] HISTORICAL RESULTS Comment: A NEGATIVE RESULT DOES NOT ELIMINATE THE POSSIBILITY OF AN ?? INFLUENZA A OR B INFECTION. ??INADEQUATE SPECIMEN COLLECTION ?? OR IMPROPER SAMPLE HANDLING/TRANSPORT, OR LOW LEVELS OF ?? VIRAL SHEDDING MAY YIELD A FALSE NEGATIVE RESULT. 05/10/2014 12:3 0 AM POT FIREMAN 05/10/2014 12:49 AM POT FIREMAN Narrative [facility] HISTORICAL RESULTS - 05/10/2014 1:28 AM POT FIREMAN Collected By [facility] ?? [phone] Fredy Vazquez MD LAB MICROBIOLOGY - GENERAL OR DERABLES Final Result Performing Organization Address [facility] [address]/[facility] de Phone Number [facility] HISTORICAL RESULTS * (ABNORMAL) Erythrocyte sedimentation rate (05/09/2014 3:26 PM POT FIREMAN) ESR 22(H) 0 - 10 mm/hr 05/09/2014 3:41 PM POT FIREMAN [facility] HISTORICAL RESULTS 05/09/2014 3:26 PM POT FIREMAN 05/09/2014 3:32 PM POT FIREMAN Melo Horowitz MD LAB BLOOD ORDERABLES Final Result Performing Organization Address [facility] Number [facility] HISTORICAL RESULTS * Prolactin (05/09/2014 3:26 PM POT FIREMAN) Prolactin 9.8 2.8 - 26.0 ng/mL 05/11/2014 10:27 AM POT FIREMAN [facility] HISTORICAL RESULTS Comment: REFERENCE INTERVAL: Prolactin ?? Access complete set of age- and/or gender-specific ?? reference intervals for this test in the [facility] ?? Test Directory ([email or web address]). ?? Performed by [employer], ?? [address] [facility], [place] [address] ?? [email or web address], Arian Mendoza MD, Lab. Director ?? 05/09/2014 3:26 PM POT FIREMAN 05/09/2014 3:32 PM POT FIREMAN Melo Horowitz MD LAB BLOOD ORDERABLES Final Result [facility] [employer] HISTORICAL RESULTS * Magnesium (05/09/2014 8:47 AM POT FIREMAN) Magnesium 2.1 1.6 - 2.6 mg/dL 05/09/2014 9:23 AM POT FIREMAN [facility] [employer] HISTORICAL RESULTS Comment:Magnesium sulfate th erapy: 1.25-3.75 mmol/L 05/09/2014 8:47 AM POT FIREMAN 05/09/2014 8:49 AM POT FIREMAN Sultan Fredy Vazquez MD LAB BLOOD ORDERABLES Final Re sult Performing Organization Address City/[facility] [address]/ZIP Co de Phone Number [facility] [employer] HISTORICAL RESULTS * CBC with auto differential (05/09/2014 8:47 AM POT FIREMAN) Pathologist [facility] WBC 8.6 4.6 - 10.2 x10 3/ul 05/09/2014 8:53 AM [facility] [employer] HISTORICAL RESULTS RBC 4.01 3.76 - 4.80 x10 6/ul 05/09/2014 8:[address] [facility] [employer] HISTORICAL RESULTS Hemoglobin 12.5 11.0 - 15.0 g/dl 05/09/2014 8:[address] [facility] [employer] HISTORICAL RESULTS Hct 37.8 33.0 - 43.0 % 05/09/2014 8:[address] [facility] [employer] HISTORICAL RESULTS MCV 94.3 80.0 - 97.0 fl 05/09/2014 8:53 AM POT FIREMAN [facility] [employer] HISTORICAL RESULTS MCH 31.2 27.0 - 31.2 pg 05/09/2014 8:[address] [facility] [employer] HISTORICAL RESULTS MCHC 33.1 31.8 - 35.4 g/dl 05/09/2014 8:[address] [facility] [employer] HISTORICAL RESULTS RDW 13.1 11.6 - 14.8 % 05/09/2014 8:[address] [facility] [employer] HISTORICAL RESULTS Plt Count 333 124 - 400 x10 3/ul 05/09/2014 8:[address] [facility] [employer] HISTORICAL RESULTS MPV 8.4 7.4 - 10.4 fl 05/09/2014 8:[address] [facility] [employer] HISTORICAL RESULTS Differential Method AUTOMATED DIFF --------- -- Neut % 66.3 37.0 - 85.0 % Immature Gran % 0.2 0.0 - 3.0 % Lymph % 23.9 5.0 - 45.0 % [place] % 7.8 3.0 - 15.0 % Eos % 0.9 0.0 - 7.0 % Baso % 0.9 0.0 - 2.0 % ABSOLUTE COUNTS ABSOLUTE COUNTS --------- -- Absolute Neuts (auto) 5.7 1.7 - 8.7 x10 3/ul Immature Gran # 0.0 0.0 - 0.3 x10 3/ul Absolute Lymphs (auto) 2.0 0.2 - 4.6 x10 3/ul Absolute Monos (auto) 0.7 0.1 - 1.5 x10 3/ul Absolute Eos (auto) 0.1 0.0 - 0.7 x10 3/ul Absolute Basos (auto) 0.1 0.0 - 0.2 x10 3/ul 05/09/2014 8:47 AM POT FIREMAN 05/09/2014 8:49 AM [facility] Sultan Fredy Vazquez MD LAB BLOOD ORDERABLES Final Re sult [facility] HISTORICAL RESULTS * (ABNORMAL) Basic metabolic panel (05/09/2014 8:47 AM POT FIREMAN) Sodium 145 135 - 145 mmol/L 05/09/2014 9:23 AM [facility] [employer] HISTORICAL RESULTS Potassium 4.6 3.3 - 5.1 mmol/L 05/09/2014 9:23 AM [facility] Chloride 108 96 - 108 mmol/L 05/09/2014 9:23 AM [facility] Carbon Dioxide 27 22 - 32 mmol/L 05/09/2014 9:23 AM [facility] Anion Gap 10 7 - 16 05/09/2014 9:23 AM [facility] H[facility]OR[facility] RES[facility] Glucose 113(H) 70 - 100 mg/dL 05/09/2014 9:23 AM [facility] HISTORICAL RESULTS Comment:As of February 07 14 new normal range in use. BUN 12 8 - 23 mg/dL 05/09/2014 9:[address] [facility] [employer] [facility] HISTORICAL RESULTS Creatinine 0.6 0.5 - 1.1 mg/dL 05/09/2014 9:[address] [facility] [employer] [facility] HISTORICAL RESULTS Kidney Disease Stage > 90 mL/MIN 05/09/2014 9:[address] [facility] [employer] [facility] HISTORICAL RESULTS Comment: NOTE; ??The GFR is [...] @ Calcium 9.4 8.8 - 10.2 mg/dL 05/09/2014 9:23 AM POT FIREMAN [facility] HISTORICAL RESULTS 05/09/2014 8:47 AM POT FIREMAN 05/09/2014 8:49 AM POT FIREMAN us Sultan Fredy Vazquez MD LAB BLOOD ORDERABLES Final Re sult Performing Organization Address [facility] [address]/[facility] de Phone Number [facility] HISTORICAL RESULTS * TSH reflex to free T4 (05/09/2014 5:27 AM POT FIREMAN) TSH W REFLEX TO FT4 2.54 0.27 - 4.20 uIU/mL 05/09/2014 7:02 AM POT FIREMAN [facility] HISTORICAL RESULTS 05/09/2014 5:27 AM POT FIREMAN 05/09/2014 5:57 AM POT FIREMAN us [employer] LAB BLOOD ORDERABLES Final Resul t Performing Organization Address [facility] Phone Number [facility] HISTORICAL RESULTS * Troponin I (05/09/2014 5:27 AM POT FIREMAN) Troponin I < 0.300 0.000 - 0.300 ng/mL 05/09/2014 6:51 AM POT FIREMAN [facility] HISTORICAL RESULTS Comment: Reference using LISBETH Chemiluminescence ? Negative: Repeat in 4-6 hours as indicated. 05/09/2014 5:27 AM POT FIREMAN 05/09/2014 5:57 AM POT FIREMAN us Fabi Wang PA LAB BLOOD ORDERABLES Blanca l Result Performing Organization Address [facility] [address]/[facility] de Phone Number [facility] HISTORICAL RESULTS * Transthoracic Echo Complete W Doppler/CF (05/09/2014 12:00 AM POT FIREMAN) Anatomical Region Laterality Modality Ultrasound 05/09/2014 Narrative 05/09/2014 12:34 PM POT FIREMAN Results viewable in EMR, Cardiovasular [EOD] Procedure Note ProviderAnny MD - 07/24/2020 Results viewable in EMR, Cardiovasular [EOD] us Sultan Fredy Vazquez MD CV ECHO PROCEDURES Final Resu lt * XR Ribs Left 2 Views (05/09/2014 12:00 AM POT FIREMAN) Anatomical Region Laterality Modality Rib, Chest Left Radiographic Maya ging 05/09/2014 Impressions 05/09/2014 12:53 PM POT FIREMAN ??No significant rib fractures identified THIS IS AN ELECTRONICALLY VERIFIED REPORT 05/09/2014 12:49 PM: ??Jose Daniel Loredo M.D. Jose Daniel Loredo M.D. NC:bj 12:49 PM 12:49 PM [facility] [EOD] Narrative 05/09/2014 12:53 PM POT FIREMAN Left rib series TECHNIQUE: ??3 views. ??History of pain Findings: There is no evidence of rib fracture or pneumothorax. ??The lungs are clear. ?? No significant pleural effusions are noted. Procedure Note ProviderAnny MD - 07/24/2020 Left rib series TECHNIQUE: 3 views. History of pain Findings: There is no evidence of rib fracture or pneumothorax. The lungs areclear. No significant pleural effusions are noted. IMPRESSION: No significant rib fractures identified THIS IS AN ELECTRONICALLY VERIFIED REPORT 05/09/2014 12:49 PM: Jose Daniel Loredo M.D. Jose Daniel Loredo M.D. NC:nc 12:49 PM 12:49 PM [facility] [EOD] us Sultan Fredy Vazquez MD IMG XR PROCEDURES Final Resul t * CT Abdomen W Contrast (05/09/2014 12:00 AM POT FIREMAN) Anatomical Region Laterality Modality Body N/A Computed Tomogra phy 05/09/2014 Narrative 05/10/2014 10:17 AM POT FIREMAN EXAMINATION: ??CT abdomen with contrast HISTORY: ??Left lower lateral chest and left upper quadrant abdominal pain. TECHNIQUE: ??Following the intravenous administration of 100 mL Omnipaque 350 intravenous contrast via the right antecubital vein as well as 32 ounces of oral contrast postcontrast images were obtained through the abdomen. ??The pelvis was not imaged. COMPARISON: ??None. FINDINGS: ??No pleural effusion. Abdomen: ??No focal hepatic lesions are identified. ??Previously administered intravenous contrast is seen with vicarious excretion into the gallbladder. ?? There is mild prominence of the common hepatic duct measuring 0.9 cm, with normal tapering in the distal common bile duct 0.5 cm. ??There is very mild central intrahepatic biliary ductal dilatation. ??The significance is uncertain, recommend correlation with LFTs. The spleen is small in size but otherwise unremarkable. ??The pancreas and both adrenal glands are normal. A duplex right renal collecting system is noted. ??Mild right hydronephrosis is noted and fullness of the renal pelvis, there appears to be normal tapering just distal to the renal pelvis. ??The entire course of the right ureter and pelvis are not imaged. No dilated bowel seen within the abdomen. ??No fullness in the left renal collecting system. No evidence of abdominal aortic aneurysm or dissection although there is mild ectasia of the abdominal aorta with mild - moderate atherosclerosis. Advanced degenerative changes are present at the lumbosacral junction. ??Mild levo curvature of lumbar spine is noted. ??No acute or aggressive osseous abnormality is seen. Impression: 1. ??No identified etiology to explain left upper quadrant pain. 2. ??Duplex right renal collecting system. ??Mild right hydronephrosis and prominent renal pelvis appears to taper promptly. ??The etiology is uncertain, this could be related to a congenital UPJ type obstruction or could be related to reflux. ??Given two contrast boluses in the past 24 hours, may consider noncontrast imaging through the abdomen and pelvis to ensure no obvious cause for obstruction. ??Also recommend correlation with any prior outside imaging if available to assess for interval change. 3. ??Mild prominence of the biliary system, recommend correlation with LFTs. THIS IS AN ELECTRONICALLY VERIFIED REPORT 05/10/2014 9:55 AM: ??Leonard Patten M.D. Leonard Patten M.D. CH:comfort 09:13 PM 09:00 AM [facility] [EOD] Procedure Note Provider, MD Anny - 07/24/2020 EXAMINATION: CT abdomen with contrast HISTORY: Left lower lateral chest and left upper quadrant abdominalpain. TECHNIQUE: Following the intravenous administration of 100 mL [id number] intravenous contrast via the right antecubital vein as well as 32 ouncesof oral contrast postcontrast images were obtained through the abdomen. The pelvis was not imaged. COMPARISON: None. FINDINGS: No pleural effusion. Abdomen: No focal hepatic lesions are identified. Previouslyadministered intravenous contrast is seen with vicarious excretion into thegallbladder. There is mild prominence of the common hepatic duct measuring 0.9 cm, with normal tapering in the distal common bile duct 0.5 cm. There is very mild central intrahepatic biliary ductal dilatation. The significance is uncertain, recommend correlation with LFTs. The spleen is small in size but otherwise unremarkable. The pancreas andboth adrenal glands are normal. A duplex right renal collecting system is noted. Mild righthydronephrosis is noted and fullness of the renal pelvis, there appears to be normaltapering just distal to the renal pelvis. The entire course of the right ureterand pelvis are not imaged. No dilated bowel seen within the abdomen. No fullness in the left renal collecting system. No evidence of abdominal aortic aneurysm or dissection although there ismild ectasia of the abdominal aorta with mild - moderate atherosclerosis. Advanced degenerative changes are present at the lumbosacral junction.Mild levo curvature of lumbar spine is noted. No acute or aggressive osseous abnormality is seen. Impression: 1. No identified etiology to explain left upper quadrant pain. 2. Duplex right renal collecting system. Mild right hydronephrosis and prominent renal pelvis appears to taper promptly. The etiology isuncertain, this could be related to a congenital UPJ type obstruction or could berelated to reflux. Given two contrast boluses in the past 24 hours, may consider noncontrast imaging through the abdomen and pelvis to ensure no obviouscause for obstruction. Also recommend correlation with any prior outsideimaging if available to assess for interval change. 3. Mild prominence of the biliary system, recommend correlation withLFTs. THIS IS AN ELECTRONICALLY VERIFIED REPORT 05/10/2014 9:55 AM: Leonard Patten M.D. Leonard Patten M.D. CH:comfort 09:13 PM 09:00 AM [facility] [EOD] Raquel Goff MD IMG CT PROCEDURES Final Result * Thyroid Panel (05/08/2014 11:31 PM POT FIREMAN) [facility] TSH 3.24 0.27 - 4.20 uIU/mL 05/09/2014 12:19 AM POT FIREMAN [facility] HISTORICAL RESULTS Free T4 1.03 0.93 - 1.70 ng/dL 05/09/2014 12:19 AM POT FIREMAN [facility] HISTORICAL RESULTS 05/08/2014 11:3 1 PM POT FIREMAN 05/08/2014 11:36 PM POT FIREMAN us Fabi PUGH LAB BLOOD ORDERABLES Blanca hutson Result [facility] HISTORICAL RESULTS * Troponin I (05/08/2014 11:31 PM POT FIREMAN) [facility] Troponin I < 0.300 0.000 - 0.300 ng/mL 05/09/2014 12:19 AM POT FIREMAN [facility] [employer] HISTORICAL RESULTS Comment: Reference using LISBETH Chemiluminescence ? Negative: Repeat in 4-6 hours as indicated. 05/08/2014 11:3 1 PM POT FIREMAN 05/08/2014 11:36 PM POT FIREMAN us Fabi PUGH LAB BLOOD ORDERABLES Blanca caryl Result [facility] [employer] HISTORICAL RESULTS * Hemogram with manual differential (05/08/2014 5:32 PM POT FIREMAN) WBC 7.6 4.6 - 10.2 x10 3/ul 05/08/2014 5:[address] [facility] [employer] HISTORICAL RESULTS RBC 4.01 3.76 - 4.80 x10 6/ul 05/08/2014 5:[address] [facility] [employer] HISTORICAL RESULTS Hemoglobin 12.5 11.0 - 15.0 g/dl 05/08/2014 5:[address] [facility] [employer] HISTORICAL RESULTS Hct 38.3 33.0 - 43.0 % 05/08/2014 5:[address] [facility] [employer] HISTORICAL RESULTS MCV 95.5 80.0 - 97.0 fl 05/08/2014 5:[address] [facility] [employer] HISTORICAL RESULTS MCH 31.2 27.0 - 31.2 pg 05/08/2014 5:[address] [facility] [employer] HISTORICAL RESULTS MCHC 32.6 31.8 - 35.4 g/dl 05/08/2014 5:[address] [facility] [employer] HISTORICAL RESULTS RDW 13.0 11.6 - 14.8 % 05/08/2014 5:[address] [facility] [employer] HISTORICAL RESULTS Plt Count 348 124 - 400 x10 3/ul 05/08/2014 5:[address] [facility] [employer] HISTORICAL RESULTS MPV 8.6 7.4 - 10.4 fl 05/08/2014 5:[address] [facility] [employer] HISTORICAL RESULTS Differential Method AUTOMATED DIFF --------- -- 05/08/2014 5:[address] [facility] [employer] HISTORICAL RESULTS Neut % 57.4 37.0 - 85.0 % Immature Gran % 0.3 0.0 - 3.0 % Lymph % 31.0 5.0 - 45.0 % [place] % 9.5 3.0 - 15.0 % Eos % 0.9 0.0 - 7.0 % Baso % 0.9 0.0 - 2.0 % ABSOLUTE COUNTS ABSOLUTE COUNTS --------- -- Absolute Neuts (auto) 4.4 1.7 - 8.7 x10 3/ul Immature Gran # 0.0 0.0 - 0.3 x10 3/ul Absolute Lymphs (auto) 2.4 0.2 - 4.6 x10 3/ul Absolute Monos (auto) 0.7 0.1 - 1.5 x10 3/ul Absolute Eos (auto) 0.1 0.0 - 0.7 x10 3/ul Absolute Basos (auto) 0.1 0.0 - 0.2 x10 3/ul Platelet Evaluation AGREE AGREE Comment:Slide review of plat elets correlates with instrument count. 05/08/2014 5:32 PM POT FIREMAN 05/08/2014 5:34 PM POT FIREMAN Fabi PUGH LAB BLOOD ORDERABLES Blanca hutson Result [facility] HISTORICAL RESULTS * (ABNORMAL) D-dimer, quantitative (05/08/2014 5:32 PM POT FIREMAN) D-Dimer, Quantitative 1.01(H) 0.00 - 0.50 FEUug/ml Comment: Studies indicate that a D-Dimer level of <0.50 FEUug/ml has a >95% negative predictive value for DVT,DIC,PE and other embolus conditions. ??Levels >0.50 FEUug/ml may be present in a wide variety of conditions and should not be considered diagnostic of any disease state. 05/08/2014 5:32 PM POT FIREMAN 05/08/2014 5:34 PM POT FIREMAN Fabi Wang CT LAB BLOOD ORDERABLES Blanca l Result Performing Organization Address [facility] [address]/[facility] de Phone Number [facility] HISTORICAL RESULTS * (ABNORMAL) TNI with LIPID PANEL (05/08/2014 5:32 PM POT FIREMAN) Pathologist [facility] Troponin I < 0.300 0.000 - 0.300 ng/mL Comment: Reference using LISBETH Chemiluminescence ? Negative: Repeat in 4-6 hours as indicated. Triglycerides 121 0 - 199 mg/dL Comment:12 hr pc highly radha mmended for Triglyceride Cholesterol 191 0 - 199 mg/dL Comment: Borderline: ??200-239 High Risk: ?? >239 HDL Cholesterol 89(H) 40 - 60 mg/dL Comment: Major Risk ?< 40 mg/dL Moderate Risk ?40-60 mg/dL Negative Risk ?? > 60 mg/dL LDL Cholesterol, Calc 78 0 - 130 mg/dL Comment:High Risk > 159 mg/d L Cholesterol/HDL Ratio 2.1 Comment: Cholesterol / HDL Ratio 3.5:1 or less is desirable. Cholesterol / HDL Ratio greater than 5:1 is considered higher risk for developing heart disease. 05/08/2014 5:32 PM POT FIREMAN 05/08/2014 5:34 PM POT FIREMAN Fabi PUGH LAB BLOOD ORDERABLES Blanca l Result Performing Organization Address [facility] [address]/[facility] de Phone Number [facility] HISTORICAL RESULTS * Protime-INR (05/08/2014 5:32 PM POT FIREMAN) PT 13.5 12.2 - 14.8 SECONDS INR 1.00 0.01 - 5.99 Comment: Recommended Therapeutic range for Oral Anticoagulant Therapy No anti-coagulation therapy ? Normal Range: ?0.8-1.4 Anti-coagulation therapy ? Low intensity therapy ?2.0-3.0 ? High intensity therapy ?? 2.5-3.5 Critical Value ? Greater than or equal to 6.0 Patients should be monitored for serious bleeding. ?? 05/08/2014 5:32 PM POT FIREMAN 05/08/2014 5:34 PM POT FIREMAN Fabi PUGH LAB BLOOD ORDERABLES Blanca l Result Performing Organization Address [facility] [address]/[facility] [facility] de Phone Number [facility] HISTORICAL RESULTS * aPTT (05/08/2014 5:32 PM POT FIREMAN) APTT 25 24 - 38 SECONDS 05/08/2014 5:32 PM POT FIREMAN 05/08/2014 5:34 PM POT FIREMAN us Fabi Wang PA LAB BLOOD ORDERABLES Blanca hutson Result [facility] HISTORICAL RESULTS * (ABNORMAL) Comprehensive metabolic panel (05/08/2014 5:32 PM POT FIREMAN) [facility] Sodium 144 135 - 145 mmol/L 05/08/2014 6:07 PM POT FIREMAN [facility] HISTORICAL RESULTS Potassium 4.4 3.3 - 5.1 mmol/L Chloride 105 96 - 108 mmol/L Carbon Dioxide 27 22 - 32 mmol/L Anion Gap 12 7 - 16 Glucose 111(H) 70 - 100 mg/dL Comment:As of February 07 14 new normal range in use. BUN 14 8 - 23 mg/dL Creatinine 0.7 0.5 - 1.1 mg/dL Kidney Disease Stage 89 mL/MIN Comment: NOTE; ??The GFR is an [...] Kidney failure or on dialysis @ Calcium 9.5 8.8 - 10.2 mg/dL 05/08/2014 6:07 PM [facility] Total Protein 7.8 6.4 - 8.3 g/dL 05/08/2014 6:07 PM [facility] HISTORICAL RESULTS Albumin 4.1 3.5 - 5.2 g/dL Globulin 3.7(H) 2.3 - 3.5 gm/dL Albumin/Globulin Ratio 1.1 1.1 - 1.8 Total Bilirubin 0.3 0.0 - 1.2 mg/dL AST 20 0 - 32 U/L ALT 15 0 - 33 U/L Alkaline Phosphatase 65 35 - 104 U/L 05/08/2014 5:32 PM POT FIREMAN 05/08/2014 5:34 PM POT FIREMAN Fabi PUGH LAB BLOOD ORDERABLES Blanca l Result [facility] HISTORICAL RESULTS * CARDIOLOGY REPORT (05/08/2014 12:00 AM POT FIREMAN) Anatomical Region Laterality Modality Other Narrative 05/08/2014 12:00 AM POT FIREMAN Ordered by an unspecified provider. Historical Provider [facility] CINTIA MADRIGAL Final Result * XR Chest 1 View (05/08/2014 12:00 AM POT FIREMAN) Anatomical Region Laterality Modality Body, Chest N/A Radiographic Maya ging 05/08/2014 Impressions 05/08/2014 6:02 PM POT FIREMAN ?? No radiographic evidence of an acute cardiopulmonary process. THIS IS AN ELECTRONICALLY VERIFIED REPORT 05/08/2014 5:59 PM: ??Timothy Bush M.D. Timothy Bush M.D. AT:at 05:59 PM 05:59 PM [facility] [EOD] Narrative 05/08/2014 6:02 PM POT FIREMAN EXAMINATION: ??AP radiograph of the chest. ?? DATE: ??05/08/2014 at 17:51 COMPARISON: ??None HISTORY: ??Dyspnea TECHNIQUE: ??Single AP radiograph of the chest was submitted for review. FINDINGS: ?? Cardiac silhouette is within normal limits. ??Trachea is midline. ??Lungs appear slightly hyperexpanded. ??There is no evidence of consolidation, pneumothorax or large pleural effusion. Procedure Note Provider, MD Anny - 07/24/2020 EXAMINATION: AP radiograph of the chest. DATE: 05/08/2014 at 17:51 COMPARISON: None HISTORY: Dyspnea TECHNIQUE: Single AP radiograph of the chest was submitted for review. FINDINGS: Cardiac silhouette is within normal limits. Trachea is midline. Lungsappear slightly hyperexpanded. There is no evidence of consolidation,pneumothorax or large pleural effusion. IMPRESSION: No radiographic evidence of an acute cardiopulmonary process. THIS IS AN ELECTRONICALLY VERIFIED REPORT 05/08/2014 5:59 PM: Timothy Bush M.D. Timothy Bush M.D. AT:at 05:59 PM 05:59 PM [facility] [EOD] us Fabi PUGH IMG XR PROCEDURES Final R esult * CT Chest W Contrast (05/08/2014 12:00 AM POT FIREMAN) Anatomical Region Laterality Modality Body N/A Computed Tomogra phy 05/08/2014 Impressions 05/08/2014 8:58 PM POT FIREMAN ?? 1. ??No evidence of pulmonary embolism to the level of the segmental arteries. 2. ??Opacities within the bilateral lung apices. ??These are suspected to be related to parenchymal scarring, however, appear more pronounced than customarily seen. ??Additionally, there is some nodularity. ??Follow-up CT scan is recommended in 3 months to document continued stability. 3. ??There is a 0.3 cm pulmonary nodule within the right upper lobe. ??Attention on follow-up imaging is recommended. THIS IS AN ELECTRONICALLY VERIFIED REPORT 05/08/2014 8:54 PM: ??Timothy Bsuh M.D. Timothy Bush M.D. AT:at 08:54 PM 08:54 PM [facility] [EOD] Narrative 05/08/2014 8:58 PM POT FIREMAN EXAMINATION: ??CT CHEST WITH CONTRAST, PULMONARY EMBOLISM PROTOCOL DATE: ??05/08/2014 COMPARISON: ??None INDICATION: Chest pain, left-sided rib pain, dyspnea, history of hypertension TECHNIQUE: ??CT of the chest was performed according to the pulmonary embolus protocol. ??80 mL of Omnipaque 350 was instilled intravenously into the right antecubital fossa FINDINGS: ?? There appears to be some mixing artifact within the periphery of the pulmonary arteries within their subsegmental branches. ??Within that limitation, there is no evidence of pulmonary embolism to the level of the segmental arteries. ?? Heart size is within normal limits. ??Proximal aspects of the great vessels are within normal limits in size as well. ??No hilar, mediastinal, axillary, supraclavicular, internal mammary, pericardiophrenic or retrocrural lymphadenopathy is present. ??Images of the upper abdomen are unremarkable. ?? Trachea, esophagus, main stem bronchi are unremarkable. ??Opacity within the right lung apex is noted. ??There is a 0.3 cm pulmonary nodule on image 34 of series 6 within the right upper lobe. ??Areas of nodularity within the left upper lobe are noted as well. ??These are somewhat linear near the apex. ??These measure up to 1.3 cm in size on image 21 of series 6. ??No pneumothorax or consolidation are evident. ??Moderate osteoarthritic changes of the spine are noted, most pronounced at T11 - T12.. Procedure Note Provider, MD Anny - 07/24/2020 EXAMINATION: CT CHEST WITH CONTRAST, PULMONARY EMBOLISM PROTOCOL DATE: 05/08/2014 COMPARISON: None INDICATION: Chest pain, left-sided rib pain, dyspnea, history ofhypertension TECHNIQUE: CT of the chest was performed according to the pulmonaryembolus protocol. 80 mL of Omnipaque 350 was instilled intravenously into theright antecubital fossa FINDINGS: There appears to be some mixing artifact within the periphery of thepulmonary arteries within their subsegmental branches. Within that limitation,there is no evidence of pulmonary embolism to the level of the segmental arteries. Heart size is within normal limits. Proximal aspects of the great vesselsare within normal limits in size as well. No hilar, mediastinal, axillary, supraclavicular, internal mammary, pericardiophrenic or retrocrural lymphadenopathy is present. Images of the upper abdomen are unremarkable. Trachea, esophagus, main stem bronchi are unremarkable. Opacity withinthe right lung apex is noted. There is a 0.3 cm pulmonary nodule on image 34of series 6 within the right upper lobe. Areas of nodularity within the left upper lobe are noted as well. These are somewhat linear near the apex.These measure up to 1.3 cm in size on image 21 of series 6. No pneumothorax or consolidation are evident. Moderate osteoarthritic changes of the spineare noted, most pronounced at T11 - T12.. IMPRESSION: 1. No evidence of pulmonary embolism to the level of the segmentalarteries. 2. Opacities within the bilateral lung apices. These are suspected to be related to parenchymal scarring, however, appear more pronounced than customarily seen. Additionally, there is some nodularity. Follow-up CTscan is recommended in 3 months to document continued stability. 3. There is a 0.3 cm pulmonary nodule within the right upper lobe.Attention on follow-up imaging is recommended. THIS IS AN ELECTRONICALLY VERIFIED REPORT 05/08/2014 8:54 PM: Timothy Bush M.D. Timothy Bush M.D. AT:at 08:54 PM 08:54 PM [facility] [EOD] us Shelbi Stephen [facility] [facility]ILOT IMG CT PROCEDURES Final Resu lt documented in this encounter Visit Diagnoses Diagnosis Other chest pain Nonspecific (abnormal) findings on radiological and other examination of lung field Hypertensive heart disease without congestive heart failure Unspecified hypertensive heart disease without heart failure Other and unspecified hyperlipidemia Tietze's disease Pleurisy Pleurisy without mention of effusion or current tuberculosis Other abnormal glucose Degeneration of lumbar or lumbosacral intervertebral disc Other premature beats Hydronephrosis Anxiety state Anxiety state, unspecified Encounter for long-term (current) use of other medications documented in this encounter
--- OUTSIDE RECORDS SUMMARY | 2024-03-18 22:44 | XMS_ITS | Encounter Summary ---
Author Organization [facility] Healthcare Address [address] [place] [address] Care Team Providers Care Vp Organizational Development Name Role Phone Unavailable Primary Care Provider Unavailabl e Encounter Details Date Type Department Care Team (Latest Contact Info) Description 11/20/2014 12:36 PM CDT Hospital Encounter [facility] OP Guanaco Hicks MD [address] [facility] [address] [address] Thrombophlebitis of the femoral vein (CMS/HCC) Social History Tobacco Use Types Packs/Day Years Used Date Smoking Tobacco: Never Assessed Comments Unknown Sex and Gender Information Value Date Recorded Sex Assigned at Not on file 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 Gender Identity Female 08/22/2019 6:09 AM CDT Sexual Orientation Straight 08/22/2019 6: 09 AM CDT documented as of this encounter Plan of Treatment Not on file documented as of this encounter Procedures Procedure Name Priority Date/Time Associated Diagnosis Comments US VEIN DUPLEX LOWER EXTREMITY LEFT LIMITED Routine 11/20/2014 12:39 PM CDT documented in this encounter Results * US Vein Duplex Lower Extremity Left Limited (11/20/2014 12:39 PM CDT) Anatomical Region Laterality Modality Vascular Left Ultrasound 11/20/2014 12:3 9 PM CDT Narrative 11/29/2014 8:48 AM CDT DATE OF SERVICE: 11/20/2014 FINDINGS: ??The left common femoral, femoral, popliteal, posterior tibial and peroneal veins have spontaneous flow which is phasic and these vessels are compressible. ??The left greater saphenous vein has been surgically removed. ??The left accessory saphenous vein has no flow, status post ablation. CONCLUSION: ??No evidence of deep venous thrombosis, status post endovenous laser ablation of the left accessory saphenous vein. NTS Job: [id number] Dictated By: Guanaco Hicks MD Dictated For: Guanaco Hicks MD [EOD] Procedure Note Provider, MD Anny - 07/24/2020 DATE OF SERVICE: 11/20/2014 FINDINGS: The left common femoral, femoral, popliteal, posterior tibialand peroneal veins have spontaneous flow which is phasic and these vesselsare compressible. The left greater saphenous vein has been surgicallyremoved. The left accessory saphenous vein has no flow, status postablation. CONCLUSION: No evidence of deep venous thrombosis, status post endovenouslaser ablation of the left accessory saphenous vein. NTS Job: [id number] Dictated By: Guanaco Hicks MD Dictated For: Guanaco Hicks MD [EOD] us Guanaco Hicks MD IMG US PROCEDURES Final Re sult documented in this encounter Visit Diagnoses Diagnosis Thrombophlebitis of the femoral vein (CMS/HCC) (HCC) Phlebitis and thrombophlebitis of femoral vein (deep) (superficial) documented in this encounter
--- OUTSIDE RECORDS SUMMARY | 2024-03-18 22:44 | XMS_ITS | Encounter Summary ---
Author Organization [facility] Facility Care Team Providers Care Summer Analyst Name Role Phone Unavailable Primary Care Provider Unavailabl e Encounter Details Date Type Department Care Team (Late st Contact Info) Description 05/12/2014 11:06 AM TEACHER CCLC - 05/13/2014 9:37 AM CDT Hospital Encounter [facility] Abdirizak Moran MD [address] [facility] [address] [place] [address] Other diseases of lung; Degeneration of thoracic or thoracolumbar intervertebral disc; Thoracic or lumbosacral neuritis or radiculitis; Essential hypertension; Other and unspecified hyperlipidemia; Tubal ligation status; Family history of other cardiovascular diseases Social History Tobacco Use Types Packs/Day Years Used Date Smoking Tobacco: Never Assessed Comments Unknown Sex and Gender Information Value Date Recorded Sex Assigned at Not on file Legal Sex Female 8:34 AM TEACHER CCLC Gender Identity Female 08/22/2019 6:09 AM CDT Sexual Orientation Straight 08/22/2019 6: 09 AM CDT documented as of this encounter Plan of Treatment Not on file documented as of this encounter Procedures Procedure Name Priority Date/Time Associated Diagnosis Comments DISCHARGE LABORATORY CUMULATIVE REPORT Routine 05/13/2014 12:00 AM TEACHER CCLC MRI THORACIC SPINE WO CONTRAST Routine 05/12/2014 5:57 PM TEACHER CCLC SERUM TROPONIN I Routine 05/12/2014 3:53 PM TEACHER CCLC PLASMA BASIC METABOLIC PANEL Routine 05/12/2014 3:53 PM TEACHER CCLC BLOOD CELL COUNT (CBC) Routine 05/12/2014 3:53 PM TEACHER CCLC URINE MICROSCOPY Routine 05/12/2014 1:27 PM TEACHER CCLC URINALYSIS Routine 05/12/2014 1:27 PM TEACHER CCLC CHEST RADIOGRAPHY, FRONTAL (AP), LATERAL Routine 05/12/2014 1:03 PM TEACHER CCLC documented in this encounter Results * Discharge Laboratory Cumulative Report (05/13/2014 12:00 AM TEACHER CCLC) 05/13/2014 Narrative HISTORICAL RESULTS - 05/13/2014 11:16 AM CDT ?[facility] ?Department of Laboratories ? [address] [facility] [address] ? [place] [address] Patient Name: ??DOTTIE HUANG [facility] Rec Number: [id number] Fin Number: ?[id number] Date: ?1945 Sex/Age: ? Female 68 years Admit Date: ?05/12/2014 Discharge Date: 05/13/2014 Doctor: ?Abdirizak Rubin Facility: ?[facility] Location: ?OBS-10 Chart Printed: 05/13/2014 11:16 ?? * Abnormal ?? C Critical ?? f Footnote ?? ^ Corrected ?? L Low ?? H High ? i Interp Data ?? @ Reference Lab ?Chart Type:Cumulative ? SELECTED ELECTROLYTES ?Test: Sodium ? Plasma Potassium ??Chloride ? Reference: [135-145] ??[3.3-4.9] ? [97-110] ? Units: mmol/L ? mmol/L ?mmol/L 05/12/2014 ?? 15:53:00 ?? 142 ?4.3 ??f ?102 05/12/2014 15:53:00 ??Plasma Potassium: Hemolyzed; (++); potassium value may be falsely elevated by as much as 0.3 - 0.5 mmol/L. Suggest redraw and reanalysis. ?Test: Total CO2 ??Anion Gap ? Reference: [22-32] ?[0-16] ? Units: mmol/L ? mmol/L 05/12/2014 ?? 15:53:00 ?? 26 ? 14 ? STANDARD BLOOD CHEMISTRY ?Test: BUN ? Creatinine ?? Glucose ?? Total Calcium ? Reference: [8-25] ??[0.60-1.10] ??[70-199] ??[8.6-10.3] ? Units: mg/dL ?? mg/dL ?mg/dL ? mg/dL 05/12/2014 ?? 15:53:00 ?? 15 ?0.83 ? 83 ?10.3 ? CARDIAC PROTEINS ?Test: Troponin I i ? Reference: [0.00-0.03] ? Units: ng/mL 05/12/2014 ?? 15:53:00 ?? <0.03 ? CARDIAC PROTEINS 05/12/2014 15:53:00 Troponin I: Interpretive Data Serial determinations are recommended for the diagnosis of myocardial infarction (Third Dixon Definition of Myocardial Infarction. ??J Am Andrew Cardiol 2012;60:1581-98). Current interpretive data was last revised on 13. ?URINALYSIS ?Macroscopic ?Test: Color ? Clarity ??Specific [place] ??pH ? Reference: [Yellow] ??[Clear] ??[1.003-1.030] ? [5.0-8.0] ? Units: 05/12/2014 ?? 13:27:00 ?? Yellow ?Clear ?1.019 ? 5.0 ?Test: Albumin ?? Glucose ? Ketones ? Bilirubin ? Reference: [Trace] ?? [Negative] ??[Negative] ??[Negative] ? Units: 05/12/2014 ?? 13:27:00 ?? Negative ??Negative ?Trace ??* ?Negative ?Test: Blood ? Urobilinogen ??Nitrite ? Reference: [Negative] ??[0.0-2.0] ? [Negative] ? Units: ? mg/dL 05/12/2014 ?? 13:27:00 ?? Negative ?<2.0 ?Negative ?Test: Leuk Esterase ? Reference: [Negative] ? Units: 05/12/2014 ?? 13:27:00 ?? 2+ ??* ?Microscopic ?Test: Epithl Squam ??Mucus Thrds ??RBC Ur ??WBC Ur ? Reference: ?[0-3] ?? [0-5] ? Units: /LPF ?/HPF ? /HPF ?/HPF 05/12/2014 ?? 13:27:00 ?? 7 ? Small ?2 ? 6 ??H ?Test: Bacteria Ur ??Epithl Renl Ur ??Hyaline Cast ? Reference: [Trace] ?[0-0] ? [0-0] ? Units: ?/HPF ?/LPF 05/12/2014 ?? 13:27:00 ?? Negative ? 0 ? >2 ??H ?Test: WBC Cast ? Reference: [0-0] ? Units: /LPF 05/12/2014 ?? 13:27:00 ?? >2 ??H ? COMPLETE BLOOD COUNT ?Test: WBC ?RBC ?Hgb ? Reference: [3.8-9.8] ??[3.90-5.00] ??[12.1-15.1] ? Units: K/cumm ? M/cumm ? g/dL 05/12/2014 ?? 15:53:00 ?? 8.8 ?4.20 ? 13.2 ?Test: Hct ?Platelet Ct ??MCV ? Reference: [36.1-44.3] ??[140-440] ?[80.0-97.6] ? Units: % ?K/cumm ? fL 05/12/2014 ?? 15:53:00 ?? 40.8 ? 330 ?97.0 ?Test: MCH ?MCHC ? RDW ? Reference: [26.7-33.7] ??[32.7-35.5] ??[11.8-14.6] ? Units: pg ? g/dL ? % 05/12/2014 ?? 15:53:00 ?? 31.3 ? 32.3 ??L ?13.0 ?Test: MPV ? Reference: [6.8-10.4] ? Units: fL 05/12/2014 ?? 15:53:00 ?? 7.8 ? AUTOMATED WHITE CELL DIFFERENTIAL ?Test: Neut Pct Auto ??Lymph Pct Auto ??Banks Pct Auto ? Reference: [38.7-74.5] ?[20.0-54.3] ? [4.3-13.5] ? Units: % ?% ? % 05/12/2014 ?? 15:53:00 ?? 72.9 ? 17.6 ??L ? 8.1 ?Test: Eos Pct Auto ??Baso Pct Auto ??Neut Abs Auto ? Reference: [0.0-6.0] ? [0.0-3.0] ?[1.8-6.6] ? Units: % ? % ?K/cumm 05/12/2014 ?? 15:53:00 ?? 1.0 ? 0.4 ?6.4 ?Test: Lymph Abs Auto ??Banks Abs Auto ??Eos Abs Auto ? Reference: [1.2-3.3] ? [0.2-1.2] ?[0.0-0.5] ? Units: K/cumm ?K/cumm ? K/cumm 05/12/2014 ?? 15:53:00 ?? 1.5 ? 0.7 ?0.1 ?Test: Baso Abs Auto ? Reference: [0.0-0.2] ? Units: K/cumm 05/12/2014 ?? 15:53:00 ?? 0.0 ? CANCELLED TESTS Date ?Time ?Test ? Cancel Reason 05/12/2014 ??15:39:00 ??UA Reflex ??NCHG Canceled by ED us Historical Provider LAB BLOOD ORDERABLES Blanca l Result HISTORICAL RESULTS * MRI Thoracic Spine WO Contrast (05/12/2014 5:57 PM TEACHER CCLC) Anatomical Region Laterality Modality Spine N/A Magnetic Resonan ce 05/12/2014 5:57 PM TEACHER CCLC Narrative 05/13/2014 8:59 PM CDT ARABELLA DAVIS M.D. SHANEKA DAMON M.D. FINAL REPORT The radiology attending physician has personally reviewed this study, and has reviewed and/or edited this written report and agrees with it. ACC# ??Date Time ??Exam [id number] May 12, 2014 16:57:00 [id number] MRI Thoracic Spine wo cont EXAMINATION: ?? Thoracic spine MRI without contrast. HISTORY: ??Thoracic pain TECHNIQUE: Multi-planar multi-weighted magnetic resonance imaging of the thoracic spine was performed without administration of intravenous contrast using the standard protocol. COMPARISON: ??None available. FINDINGS: There is minimal retrolisthesis of [id number]. The thoracic spine is in the normal anatomic alignment.There is mild Modic type I endplate degenerative changes at T12-L1. Incidental hemangioma is noted at the T12 vertebral body. There is more extensive edema of the vertebral bodies at the L1-L2 endplates also likely representing Modic type I at this level. Although mild bright T2 signal is seen at the disc space at this level, this is favored to represent degenerative etiology. The spinal cord demonstrates normal signal intensity on all sequences. Intervertebral disk heights show degeneration and loss of height at T10-T11 T11-T12 and T12-L1. Annular fissure at T12-L1 is noted. Mild facet hypertrophic changes in the lower thoracic spine are present. No soft tissue abnormality is identified. No soft tissue abnormality within the limited views of the chest and abdomen is identified.The aorta is normal. IMPRESSION: ?? 1. Endplate edema at the L1-L2 level is favored to represent Modic type I degenerative changes. There is posterior disc bulging and minimal retrolisthesis of L1 on [id number] present at this level. Increased L1-L2 signal is also noted but this findings likely represent degenerative changes. If there is any clinical concern for infectious process, recommendation is for follow up imaging. 2. Mild degenerative changes in the remainder of the thoracic spine as above. Findings were communicated to Dr. Acuna via the phone at 17:30 05/12/2014 via the phone. Requested By: VERONA ACUNA M.D. Dictated By: ?? SHANEKA DAMON M.D. ??on May ??7 2014 ??5:31P This document has been electronically signed by: ARABELLA DAVIS M.D. on May ??2014 ??7:58P [id number] Procedure Note Provider, MD Anny - 07/06/2016 ARABELLA DAVIS M.D. SHANEKA DAMON M.D. FINAL REPORT The radiology attending physician has personally reviewed this study, and has reviewed and/or edited this written report and agrees with it. ACC# Date Time Exam [id number] May 12, 2014 16:57:00 [id number] MRI Thoracic Spine wo cont EXAMINATION: Thoracic spine MRI without contrast. HISTORY: Thoracic pain TECHNIQUE: Multi-planar multi-weighted magnetic resonance imaging of the thoracic spine was performed without administration of intravenous contrast using the standard protocol. COMPARISON: None available. FINDINGS: There is minimal retrolisthesis of [id number]. The thoracic spine is in the normal anatomic alignment.There is mild Modic type I endplate degenerative changes at T12-L1. Incidental hemangioma is noted at the T12 vertebral body. There is more extensive edema of the vertebral bodies at the L1-L2 endplates also likely representing Modic type I at this level. Although mild bright T2 signal is seen at the disc space at this level, this is favored to represent degenerative etiology. The spinal cord demonstrates normal signal intensity on all sequences. Intervertebral disk heights show degeneration and loss of height at T10-T11 T11-T12 and T12-L1. Annular fissure at T12-L1 is noted. Mild facet hypertrophic changes in the lower thoracic spine are present. No soft tissue abnormality is identified. No soft tissue abnormality within the limited views of the chest and abdomen is identified.The aorta is normal. IMPRESSION: 1. Endplate edema at the L1-L2 level is favored to represent Modic type I degenerative changes. There is posterior disc bulging and minimal retrolisthesis of L1 on [id number] present at this level. Increased L1-L2 signal is also noted but this findings likely represent degenerative changes. If there is any clinical concern for infectious process, recommendation is for follow up imaging. 2. Mild degenerative changes in the remainder of the thoracic spine as above. Findings were communicated to Dr. Acuna via the phone at 17:30 05/12/2014 via the phone. Requested By: VERONA ACUNA M.D. Dictated By: SHANEKA DAMON M.D. on May 12 2014 5:31P This document has been electronically signed by: ARABELLA DAVIS M.D. on May 13 2014 7:58P [id number] Historical Provider MD W[facility]EN MRI PROCEDURES Final Result * Plasma basic metabolic panel (05/12/2014 3:53 PM TEACHER CCLC) Sodium 142 135 - 145 mmol/L HISTORICAL RESULTS K, pl 4.3 3.3 - 4.9 mmol/L HISTORICAL RESULTS Comment: Hemolyzed; (++); potassium value may be falsely elevated by as much as 0.3 - 0.5 mmol/L. Suggest redraw and reanalysis. Chloride 102 97 - 110 mmol/L HISTORICAL RESULTS CO2 26 22 - 32 mmol/L HISTORICAL RESULTS A. gap 14 0 - 16 mmol/L HISTORICAL RESULTS Glucose 83 70 - 199 mg/dl HISTORICAL RESULTS BUN 15 8 - 25 mg/dl HISTORICAL RESULTS Creatinine 0.83 0.60 - 1.10 mg/dl HISTORICAL RESULTS Calcium 10.3 8.6 - 10.3 mg/dl HISTORICAL RESULTS Plasma 05/12/2014 3:53 PM TEACHER CCLC us Simba Wall MD LAB BLOOD ORDERABLES Blanca l Result HISTORICAL RESULTS * Serum troponin I (05/12/2014 3:53 PM TEACHER CCLC) Troponin I <0.03 0.00 - 0.03 ng/ml HISTORICAL RESULTS Comment: Interpretive Data Serial determinations are recommended for the diagnosis of myocardial infarction (Third Dixon Definition of Myocardial Infarction. ??J Am Andrew Cardiol 2012;60:1581-98). Current interpretive data was last revised on 13. Serum 05/12/2014 3:53 PM TEACHER CCLC us Simba Wall MD LAB BLOOD ORDERABLES Blanca l Result Performing Organization Address [facility] Co de Phone Number HISTORICAL RESULTS * (ABNORMAL) Blood cell count (CBC) (05/12/2014 3:53 PM TEACHER CCLC) Pathologist [facility] WBC 8.8 3.8 - 9.8 K/cumm HISTORICAL RESULTS RBC 4.20 3.90 - 5.00 M/cumm HISTORICAL RESULTS Hgb 13.2 12.1 - 15.1 g/dl HISTORICAL RESULTS Hct 40.8 36.1 - 44.3 % HISTORICAL RESULTS MCV 97.0 80.0 - 97.6 fl HISTORICAL RESULTS MCH 31.3 26.7 - 33.7 pg HISTORICAL RESULTS MCHC 32.3(L) 32.7 - 35.5 g/dl HISTORICAL RESULTS Rdw 13.0 11.8 - 14.6 % HISTORICAL RESULTS Platelets 330 140 - 440 K/cumm HISTORICAL RESULTS MPV 7.8 6.8 - 10.4 fl HISTORICAL RESULTS Neutrophils, abs 6.4 1.8 - 6.6 K/cumm HISTORICAL RESULTS Lymphocytes, abs 1.5 1.2 - 3.3 K/cumm HISTORICAL RESULTS Monocytes, absolute 0.7 0.2 - 1.2 K/cumm HISTORICAL RESULTS Eosinophils, abs 0.1 0.0 - 0.5 K/cumm HISTORICAL RESULTS Basophils, abs 0.0 0.0 - 0.2 K/cumm HISTORICAL RESULTS Neutrophils 72.9 38.7 - 74.5 % HISTORICAL RESULTS Lymphocytes 17.6(L) 20.0 - 54.3 % HISTORICAL RESULTS Monos 8.1 4.3 - 13.5 % HISTORICAL RESULTS Eosinophils 1.0 0.0 - 6.0 % HISTORICAL RESULTS Basophils 0.4 0.0 - 3.0 % HISTORICAL RESULTS Blood specimen (specimen) 05/12/2014 3:53 PM TEACHER CCLC Simba Wall MD LAB BLOOD ORDERABLES Blanca l Result Performing Organization Address [facility] de Phone Number HISTORICAL RESULTS * (ABNORMAL) Urinalysis (05/12/2014 1:27 PM TEACHER CCLC) Color, ur Yellow Yellow HISTORICAL RESULTS Clarity, ur Clear Clear HISTORIC AL RESULTS Specific gravity, ur 1.019 1.003 - 1.030 HISTORICAL RESULTS pH, ur 5.0 5.0 - 8.0 HISTORICAL RESULTS Protein, ur Negative Trace HISTORIC AL RESULTS Glucose, ur Negative Negative HISTORIC AL RESULTS Ketones, ur Trace(A) Negative HISTORIC AL RESULTS Bilirubin, ur Negative Negative HISTOR ICAL RESULTS U Blood Negative Negative HISTORICAL RESULTS Urobilinogen, quant, ur <2.0 0.0 - 2.0 mg/dl HISTORICAL RESULTS Nitrites, ur Negative Negative HISTORI RIKY RESULTS Leukocyte esterase, ur 2+(A) Negative HISTORICAL RESULTS Urine 05/12/2014 1:27 PM TEACHER CCLC Verona Acuna MD LAB BLOOD ORDERABLES Final Result Performing Organization Address [facility] de Phone Number HISTORICAL RESULTS * (ABNORMAL) Urine microscopy (05/12/2014 1:27 PM TEACHER CCLC) RBC, ur 2 0 - 3 /hpf HISTORICA L RESULTS WBC, ur 6(H) 0 - 5 /hpf HISTORICA L RESULTS Bacteria, ur Negative Trace HISTORI RIKY RESULTS Epithelial cells, renal, ur 0 0 - 0 /hpf HISTORICAL RESULTS Epithelial cells, squamous, ur 7 /lpf HISTORICAL RESULTS Mucus, ur Small /hpf HISTORICAL RESULTS Hyaline casts >2(H) 0 - 0 /lpf HISTO RICAL RESULTS Leukocyte casts, ur >2(H) 0 - 0 /lpf HISTORICAL RESULTS Urine 05/12/2014 1:27 PM TEACHER CCLC us Verona Acuna MD LAB BLOOD ORDERABLES Final Result HISTORICAL RESULTS * CHEST RADIOGRAPHY, FRONTAL (AP), LATERAL (05/12/2014 1:03 PM TEACHER CCLC) Anatomical Region Laterality Modality N/A Radiographic Maya ging 05/12/2014 1:03 PM TEACHER CCLC Narrative 05/12/2014 1:10 PM TEACHER CCLC FLORENCE CHRIS M.D. FINAL REPORT ACC# ??Date Time ??Exam [id number] May 12, 2014 13:03:00 05419 Chest 2 views Frontl & Lat EXAMINATION: ?? 1. Chest 2 views HISTORY: Dyspnea FINDINGS: Two view submitted without comparison. There is biapical pleural parenchymal consolidation, right greater than left. No other consolidation is identified. There is no pneumothorax. The heart size is within normal limits with a tortuous atherosclerotic aorta. IMPRESSION: ?? 1. Biapical pleuroparenchymal consolidation, right greater than left. This is favored to represent scarring versus sequela of prior infectious etiology such as mycobacterium. Requested By: VERONA ACUNA M.D. Dictated By: ?? FLORENCE CHRIS M.D. ??on May ??2014 ??1:10P This document has been electronically signed by: FLORENCE CHRIS M.D. on May ??2014 ??1:10P [id number] Procedure Note Provider, MD Anny - 07/06/2016 FLORENCE CHRIS M.D. FINAL REPORT ACC# Date Time Exam [id number] May 12, 2014 13:03:00 38400 Chest 2 views Frontl & Lat EXAMINATION: 1. Chest 2 views HISTORY: Dyspnea FINDINGS: Two view submitted without comparison. There is biapical pleural parenchymal consolidation, right greater than left. No other consolidation is identified. There is no pneumothorax. The heart size is within normal limits with a tortuous atheroscleroticaorta. IMPRESSION: 1. Biapical pleuroparenchymal consolidation, right greater than left. This is favored to represent scarring versus sequela of prior infectious etiology such as mycobacterium. Requested By: VERONA ACUNA M.D. Dictated By: FLORENCE CHRIS M.D. on May 12 2014 1:10P This document has been electronically signed by: FLORENCE CHRIS M.D. on May 12 2014 1:10P [id number] us Historical Provider MD [facility] XR PROCEDURES Final R esult documented in this encounter Visit Diagnoses Diagnosis Other diseases of lung Degeneration of thoracic or thoracolumbar intervertebral disc Thoracic or lumbosacral neuritis or radiculitis Thoracic or lumbosacral neuritis or radiculitis, unspecified Essential hypertension Unspecified essential hypertension Other and unspecified hyperlipidemia Tubal ligation status Family history of other cardiovascular diseases documented in this encounter
--- OUTSIDE RECORDS SUMMARY | 2024-03-18 22:44 | XMS_ITS | Encounter Summary ---
Author Organization [facility] Facility Care Team Providers Care Razor Sharpener Name Role Phone Unavailable Primary Care Provider Unavailabl e Encounter Details Date Type Department Care Team (Late st Contact Info) Description 12/05/2008 3:49 PM CDT - 12/05/2008 4:00 PM CDT Hospital Encounter [facility] Cruz Velez MD [address] [facility] [address] [place] [address] Lumbosacral spondylosis without myelopathy; Degeneration of lumbar or lumbosacral intervertebral disc Social History Tobacco Use Types Packs/Day Years Used Date Smoking Tobacco: Never Assessed Comments Unknown Sex and Gender Information Value Date Recorded Sex Assigned at Not on file Legal Sex Female 8:34 AM DIRECTOR CUSTOMER Gender Identity Female 08/22/2019 6:09 AM CDT Sexual Orientation Straight 08/22/2019 6: 09 AM CDT documented as of this encounter Plan of Treatment Not on file documented as of this encounter Visit Diagnoses Diagnosis Lumbosacral spondylosis without myelopathy Degeneration of lumbar or lumbosacral intervertebral disc documented in this encounter
--- OUTSIDE RECORDS SUMMARY | 2024-03-18 22:46 | XMS_ITS | Continuity of Care Document ---
Author Organization [facility] Address [address] [place] [address] [address] [place] [address] Phone Care Team Providers Care Dip Unit Operator Name Role Phone Susanne Montgomery Unavailable Unavailable Advance Directives Directive Yes / No Effective Date File Name No Information Encounters Encounter Description Practice Location Reason(s) For Visit Diagnoses Date Provider Providers Copied on Encounter [facility], [address] [place] [address] [address], [place], [place], [id number], [place] tel:[phone] [facility] No Information Sep-0 1-200 6 Valentina Skinner. [address] , [address], [place], [address], [place]. tel:[phone] Family History Family Member Type Diagnosis Age At Onset No Information Payers Payer name Insurance type Covered republican ID Authoriza tion(s) No Information Social History Type Description Quantity Date Captured Comments Sex Female Smoking Status No Information Chief Complaint And Reason For Visit No Information Reason For Referral Reason For Referral No Information History Of Present Illness Encounter Date Complaint History Of Prese nt Illness No Information Functional Status Date Functional Assessmen t No Information Instructions Date Instruction Additional Infor mation No Information Assessments Type Assessment Date No Information Patient Care Teams Name Effective Dates (start - stop) Status Members No Information
== END 2024-03-11 23:33 | disposition home or self-care (01) ==
PROVIDERS: Emergency Provider Emergency Medicine; PCP Family Medicine
DX: N39.0 Urinary tract infection, site not specified (principal); K59.00 Constipation, unspecified; F03.90 Unspecified dementia, unspecified severity, without behavioral disturbance, psychotic disturbance, mood disturbance, and anxiety; Z79.899 Other long term (current) drug therapy; R94.31 Abnormal electrocardiogram [ECG] [EKG]
CPT/HCPCS: 36415; 74177; 80053; 81001; 83605; 83690; 83735; 84145; 84484; 85025; 87086; 93005; 99284; A9270; Q9967

== ENCOUNTER 2024-07-06 12:51 | Emergency (ER) | payer OTHER, SELFPAY ==
--- NOTE | ~2024-07-06 | CT_ITS ---
History: Vertigo PROCEDURE: CT head without contrast. COMPARISON: 09/18/2023 TECHNIQUE: Axial imaging of the head performed from the skull base to the vertex without IV contrast. Sagittal a nd coronal reformations obtained. DLP: 605 mGy-cm FINDINGS: The ventricles are normal in size, shape and position. There is no mass, mass effect or midline shift. There is no abnormal extra-axial fluid collection or intracranial hemorrhage. Visualized paranasal sinuses are clear. The mastoid air cells are well aerated. No acute displaced fractures within the overlying cranium. Impression: No acute intracranial hemorrhage or suspicious mass effect. Reviewed, dictated and finalized at location A. Impression: No acute intracranial hemorrhage or suspicious mass effect.
--- NOTE | ~2024-07-06 | XR_ITS ---
CHEST RADIOGRAPH, PA AND LATERAL CLINICAL HISTORY: SYNCOPE/HTN . COMPARISON: 05/27/2022 TECHNIQUE: PA and lateral views of the chest. FINDINGS The cardiomediastinal silhouette is unremarkable. The lungs are clear. Visualized osseous structures and soft tissues are unremarkable. IMPRESSION: No focal infiltrate or effusion. Reviewed, dictated and finalized at location A.
[2024-07-06 12:57] VITALS: BP 178/84; PULSE 56; RESP 16; TEMP 36.6; O2SAT 100
--- NOTE | 2024-07-06 13:04 | ED_ITS ---
HPI - General Adult General Chief complaint: Dizziness Stated complaint: Dizzy, elevated BP Time Seen by Provider: 07/06/24 12:56 History of Present Illness HPI narrative: 78-year-old female presents to the emergency department for evaluation for lightheaded dizziness. Patient does have history of hypertension and dementia. Family states patient has had decreased p.o. intake over the last few days. Patient only had a glass of cranberry juice this morning with no water no coffee. at time of evaluation patient denies any lightheaded or dizziness. Patient is neurologically intact and well appearing. Related Data Home Medications ?Medication ?Instructions ?Recorded ?Confirmed ?Last Taken ?Type atorvastatin 10 mg tablet 1 tablet PO DAILY 09/03/21 09/03/21 Unknown History donepezil 5 mg tablet 1 tablet PO DAILY 09/03/21 09/03/21 Unknown History ibandronate 150 mg tablet 1 tablet PO DAILY 09/03/21 09/03/21 Unknown History metoprolol succinate 25 mg 1 tablet PO DAILY 09/03/21 09/03/21 Unknown History tablet,extended release 24 hr Allergies Allergy/AdvReac Type Severity Reaction Status Date / Time celecoxib Allergy Severe HIVES Verified 07/06/24 12:52 POISON HARMEET Allergy Mild Rash Uncoded 07/06/24 12:52 Review of Systems 2 Review of Systems: All systems reviewed & are unremarkable except as noted in HPI and below Exam 2 Narrative: APPEARANCE: Well appearing, no pain, no distress, well-nourished. HEAD: normocephalic, atraumatic. EYES: PERRLA/EOMI, conjunctivae clear. NOSE: Normal no drainage EARS:TMS clear with good light reflex. THROAT: Pharynx clear, no exudate. NECK: Supple. No adenopathy, no masses. RESPIRATORY: Airway patent, respirations nonlabored. Clear to auscultation bilaterally, no rales, rhonchi, wheezing. CARDIOVASCULAR: Regular rate and rhythm without murmurs rubs or gallops. ABDOMINAL: Soft, nontender, nondistended, normal bowel sounds MUSCULOSKELETAL: Moves all extremities. Strength/ROM intact, No edema, No calf tenderness. NEURO: Alert. Cranial nerves II through XII intact. Good gait. Good coordination SKIN: Warm, dry. Normal Color Course Vital Signs Vital signs: Vital Signs Temperature 97.9 F 07/06/24 12:57 Pulse Rate 56 L 07/06/24 12:57 Respiratory Rate 16 07/06/24 12:57 Blood Pressure 178/84 H 07/06/24 12:57 Pulse Oximetry 100 07/06/24 12:57 Temperature 97.9 F 07/06/24 12:57 Pulse Rate 62 07/06/24 15:35 Respiratory Rate 16 07/06/24 15:35 Blood Pressure 127/67 07/06/24 15:35 Pulse Oximetry 100 07/06/24 15:35 Medical Decision Making MDM Narrative Medical decision making narrative: 78-year-old female presents emergency department for evaluation for dizziness. Patient states her symptoms are improved blood pressure has improved patient is currently afebrile with no leukocytosis INR 0.9 no acute abnormalities on her CMP UA was negative for an infection patient was negative for influenza RSV and for COVID, chest x-ray shows no acute cardiopulmonary abnormality. CT brain was negative for acute abnormality. Patient was able to ambulate at her baseline. Both patient and family are comfortable the plan for discharge to home. Patient does take metoprolol for her blood pressure and they were encouraged to follow low-sodium diet have close follow-up with primary care physician to determine if her blood pressure medications need to be adjusted. All questions concerns were addressed patient was well-appearing at time of discharge. Differential Diagnosis Differential Diagnosis: Dehydration, UTI, hypertension, subdural hematoma, subarachnoid hemorrhage, pneumonia, COVID, RSV, influenza, vertigo, orthostatic hypotension Vital Signs Vital Signs: Vital Signs Temperature 97.9 F 07/06/24 12:57 Pulse Rate 56 L 07/06/24 12:57 Respiratory Rate 16 07/06/24 12:57 Blood Pressure 178/84 H 07/06/24 12:57 Pulse Oximetry 100 07/06/24 12:57 Temperature 97.9 F 07/06/24 12:57 Pulse Rate 62 07/06/24 15:35 Respiratory Rate 16 07/06/24 15:35 Blood Pressure 127/67 07/06/24 15:35 Pulse Oximetry 100 07/06/24 15:35 Lab Data Lab results reviewed: Yes I reviewed the patient's lab results. 07/06/24 13:17 07/06/24 13:17 Labs: Lab Results 07/06/24 07/06/24 07/06/24 Range/Units 13:17 14:20 14:23 WBC 6.4 (4.5-10.0) K/mm3 RBC 4.43 (4.2-5.4) M/mm3 Hgb 13.7 (12.0-15.0) g/dL Hct 44.8 (37.0-47.0) % MCV 101.1 H (80-100) fl MCH 30.9 (26-34) pg MCHC 30.6 L (32-36) g/dl RDW 14.1 (11.5-14.5) % Plt Count 372 (150-375) k/mm3 MPV 8.9 (7.4-10.4) fl Immature Gran % (Auto) 0.3 (0-0.5) % Neut % (Auto) 54.0 (45.5-73.1) % Lymph % (Auto) 31.7 (18.3-44.2) % [place] % (Auto) 9.3 H (2.6-8.5) % Eos % (Auto) 3.6 (0-4.4) % Baso % (Auto) 1.1 (0.2-1.2) % Lymph # (Auto) 2.01 (0.9-3.2) K/mm3 [place] # (Auto) 0.6 (0.1-0.6) K/mm3 Eos # (Auto) 0.2 (0-0.3) K/mm3 Baso # (Auto) 0.1 (0.0-0.1) K/mm3 Abs Immat Gran (auto) 0.02 (0.00-0.031) K/mm3 Absolute Neuts (auto) 3.4 (1.3-6.7) K/mm3 Absolute Nucleated RBC 0.000 (0.0-0.012) K/mm3 Nucleated RBC % 0.0 (0.0-0.2) % PT 12.9 (11.1-14.7) Seconds INR 0.9 APTT 24.6 (22.3-36.8) Seconds Sodium 140 (137-145) mmol/L Potassium 4.4 (3.4-5.0) mmol/L Chloride 102 (98-107) mmol/L Carbon Dioxide 31 H (22-30) mmol/L Anion Gap 7 (4-12) mmol/L BUN 11 (7-17) mg/dL Creatinine 0.76 (0.7-1.0) mg/dL Estim Creat Clear Calc 39 ml/min Estimated GFR > 60 (59 - ) Glucose 101 (65-110) mg/dL Lactic Acid 1.0 (0.7-2.0) mmol/L Calcium 9.8 (8.4-10.2) mg/dL Total Bilirubin 1.0 (0.2-1.3) mg/dL AST 50 H (14-36) U/L ALT 37 H (6-35) U/L Alkaline Phosphatase 73 (38-126) U/L Total Protein 8.0 (6.3-8.2) g/dL Albumin 4.4 (3.5-5.1) g/dL Urine Color Yellow (Yellow) Urine Appearance Clear (Clear) Urine pH 7.5 (5.0-9.0) Ur Specific [place] 1.009 (1.001-1.035) Urine Protein Negative (Negative) mg/dL Urine Glucose (UA) Negative (Negative) mg/dL Urine Ketones Negative (Negative) mg/dL Ur Blood (Man) Negative (Negative) Urine Nitrate Negative (Negative) Urine Bilirubin Negative (Negative) Urine Urobilinogen 0.2 (<2.0) mg/dL Add Ur Microanalysis Reviewed Leukocyte Esterase Rfl 1+ H (Negative) SANTY/UL Urine RBC 0-2 (0-2) /hpf Urine WBC 0-5 (0-3) /hpf Ur Squamous Epith Cells None seen (Few) /hpf Urine Bacteria None seen /hpf Urine Casts 0-2 Urine Mucus Present /lpf Influenza A (RT-PCR) Negative (Negative) Influenza B (RT-PCR) Negative (Negative) RSV (RT-PCR) Negative (Negative) SARS-CoV-2 RNA (RT-PCR) Negative (Negative) Imaging Data Radiologist's impression: Impressions Chest X-Ray 07/06/24 14:07 IMPRESSION: No focal infiltrate or effusion. Head CT 07/06/24 14:08 Impression: No acute intracranial hemorrhage or suspicious mass effect. Discharge Plan Discharge Clinical Impression: Hypertension, Dizziness Patient Disposition: Home Condition: Stable Instructions: Antibiotic Form, Lightheadedness (ED), Dizziness (ED) Additional Instructions: Follow a low-sodium diet. Continue to take your blood pressure medications as directed. Have close follow-up with your primary care physician. If you have any worsening symptoms please call or return to the emergency department. Patient Language: Danish Prescriptions: No Action donepezil 5 mg tablet 1 tablet PO DAILY atorvastatin 10 mg tablet 1 tablet PO DAILY metoprolol succinate 25 mg tablet extended release 24 hr 1 tablet PO DAILY ibandronate 150 mg tablet 1 tablet PO DAILY amoxicillin-pot clavulanate 875-125 mg tablet 1 tablet PO BID 5 Days Qty: 10 0RF cephalexin 500 mg capsule 500 mg PO Q6H Qty: 28 0RF polyethylene glycol 3350 [Miralax] 17 gram powder in packet 17 g PO DAILY 3 Days Qty: 14 0RF cephalexin 500 mg capsule 500 mg PO Q12H 7 Days Qty: 14 0RF Follow-up/Referrals: Sherin,Beny Renteria DO [Primary Care Provider] -
[2024-07-06 13:12] VITALS: BP 176/74; PULSE 52
[2024-07-06 13:14] VITALS: BP 176/82
[2024-07-06 13:16] VITALS: BP 183/75; PULSE 52
--- OUTSIDE RECORDS SUMMARY | 2024-07-06 13:25 | XMS_ITS | Encounter Summary ---
Author Organization [facility] Healthcare Address [address] [place] [address] Care Team Providers Care Director Hydrogen Storage Engineering Name Role Phone Beny Duff DO Primary Care Provider Reason for Visit * Reason Onset Date Comments Dizziness 07/06/2024 Encounter Details Date Type Department Care Team ([facility] st Contact Info) Description 07/06/2024 Nurse Triage [facility] Medical Group Primary Care [address] [place] [phone] Beny Duff DO [address] [place] [phone] Social History Tobacco Use Types Packs/Day Years Used Date Smoking Tobacco: Never Cigarettes Smokeless Tobacco: Never Alcohol Use Standard Drinks/Week Comments Not Currently 0 (1 standard drink = 0.6 oz pur e alcohol) AUDIT-C Answer Date Recorded Q1: How often do you have a drink containing alcohol? Never 04/06/2024 Q2: How many drinks containi ng alcohol do you have on a typical day when you are drinking? Patient does not drink Q3: How often do you have si x or more drinks on one occasion? 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 Patient having dizziness for the past 2 days. Currently her blood pressure is 175/98 and pulse 55. Denies difficulty breathing, chest pain, falls, pain, headache, vomiting. She is unable to get up orwalk around on her own currently due to the dizziness. 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 Recommendation from provider:Proceedto ED Patient aware of PCP recommendation and will head to ED now. Caller agrees to call back after ED treatment is completed so that follow up care may be arranged with PCP as needed. Reason for Disposition SEVERE dizziness (e.g., unable to stand, requires support to walk, feels like passing out now) Protocols used: [id number] * Telephone Encounter - Sherlyn Reveles RN - 07/06/2024 11:53 AM CDT Regarding: Patient is feeling dizzy ----- Message from Shelbi Rodriguez sent at 07/06/2024 11:50 AM CDT ----- Symptom Based Call Chief Complaint(s): Patient is feeling dizzy Duration: 2 days What type of symptom(s) is the patient experiencing? Red Flag. Is the patient concerned they are experiencing a medical emergency requiring an ambulance? No Additional Comments: Patient has been feeling dizzy for 2 days. Patient also feels light headed. Patient has not eaten today nor has she been eating correctly. Patient does have dementia. Patient hasalso feeling sick to her stomach. She says due to feeling ill she does not want to eat. Edgard Bryant verified on HIPAA and will be the person you will be speaking with. Does message need to be routed? Yes-Action Needed documented in this encounter Plan of Treatment Not on file documented as of this encounter Visit Diagnoses Not on filedocumented in this encounter Care Teams Director Hydrogen Storage Engineering Relationship Specialty Start Date End Date Beny Duff DO [address] [place] [phone] PCP - General Family Medicine 04/06/24 documented as of this encounter
--- OUTSIDE RECORDS SUMMARY | 2024-07-06 13:25 | XMS_ITS | Encounter Summary ---
Author Organization [facility] Facility Care Team Providers Care Client Services Administrator Name Role Phone Beau Clement MD Unavailable + [phone] Beau Clement MD Primary Care Provid er Beny Duff DO Primary Care Provider Encounter Details Date Type Department Care Team (Latest Contact Info) Description 06/16/2017 Orders Only [facility] CLINCON[facility] ProviderAnny MD [address] [place] [address] Social History Tobacco Use Types Packs/Day Years Used Date Smoking Tobacco: Never Assessed Comments Unknown Sex and Gender Information Value Date Recorded Sex Assigned at Not on file Legal Sex Female 8:34 AM INFANT CHILDCARE PROVIDER Gender Identity Female 08/22/2019 6:09 AM CDT [...] on filedocumented in this encounter Care Teams Client Services Administrator Relationship Specialty Start Date End Date Beau Clement MD [address] [place] [address] PCP - Essence Attributed PCP 03/08/17 04/11/24 Beau Clement MD [address] [place] [address] PCP - General Family Medicine 07/13/18 04/05/24 Beny Duff DO [address] [place] [id number] PCP - General Family Medicine 04/06/24 documented as of this encounter
--- OUTSIDE RECORDS SUMMARY | 2024-07-06 13:25 | XMS_ITS | Encounter Summary ---
Author Organization [facility] Address [address] [place] [address] Care Team Providers Care Rn On Site Name Role Phone Beau Clement MD Primary Care Provider [phone] Beny Duff DO Primary Care Provider [phone] Encounter Details Date Type Department Care Team (Late st Contact Info) Description 09/13/2019 Pre-Procedure Call [place] [address] Stuart Garrett MD Three [facility]. [facility] [address] [place] [address] Social History Tobacco Use Types Packs/Day Years Used Date Smoking Tobacco: Never Smokeless Tobacco: Never Alcohol Use Standard Drinks/Week Comments Yes 0 (1 standard drink = 0.6 oz pur e alcohol) 2 glasses of wine /week Comments Unknown Sex and Gender Information Value Date Recorded Sex Assigned at Female 04/11/2024 12:06 PM [employer]ELDER PL[employer] ARC Legal Sex Female 9:31 AM CDT Gender [...] Upcoming Encounters Date Type Department Care Team (Latest Contact Info) Description 07/14/2024 11:40 AM CDT Hospital Encounter [facility] Interventional [place] [address] [id number] Izabela Navarro MD Three [facility] [address] [place] [address] 07/14/2024 11:40 AM CDT - 07/14/2024 12:00 PM CDT Surgery [facility] Interventional Pain [place] [address] [id number] Izabela Navarro MD Three [facility] [address] [place] [address] BLOCK MEDIAL BRANCH LUMBAR-L3, 4, 5 02/05/2025 10:00 AM [employer]ELDER PL[employer] ARC Office Visit [facility] THREE [facility] [address] [place] [address] Stuart Garrett MD Three [facility]. [address] [place] [address] Scheduled Procedures Name Priority Associated Diagnoses Date/Ti me BLOCK MEDIAL BRANCH LUMBAR Lumbar spondylosis 07/14/2024 11:40 AM CDT documented as of this encounter Visit Diagnoses Not on filedocumented in this encounter Additional Health Concerns Infection Onset Date Last Indicated Resolved Time COVID-19 Rule Out 09/18/2019 09/18/2019 09/20/2019 5:13 AM CDT documented as of this encounter Care Teams Rn On Site Relationship Specialty Start Date End Date Beau Clement MD [address] [place] [address] PCP - General FAMILY PRACTICE 08/25/19 04/11/24 Beny Duff DO [address] [place] [address] [phone] PCP - General FAMILY PRACTICE 04/12/24 documented as of this encounter
--- OUTSIDE RECORDS SUMMARY | 2024-07-06 13:25 | XMS_ITS | Encounter Summary ---
Author Organization [facility] Facility Care Team Providers Care Education Paraprofessional Name Role Phone Beau Clement MD Unavailable + [phone] Beau Clement MD Primary Care Provid er Beny Duff DO Primary Care Provider Encounter Details Date Type Department Care Team (Latest Contact Info) Description 07/20/2017 Orders Only [facility]INCON[facility] ProviderAnny MD [address] [place] [address] Social History Tobacco Use Types Packs/Day Years Used Date Smoking Tobacco: Never Assessed Comments Unknown Sex and Gender Information Value Date Recorded Sex Assigned at Not on file 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
--- OUTSIDE RECORDS SUMMARY | 2024-07-06 13:25 | XMS_ITS | Clinical Summary ---
Author Organization [facility] Address [facility] [place] [address] Care Team Providers Care Supplier Quality Engineer Name Role Phone Beny Duff DO Primary Care Provider [phone] Allergies Active Allergy Reactions Criticality Noted Date Comments Celecoxib Other (see comment) Low 07/14/2018 Reaction: Medications aspirin EC 81 MG tablet Take 1 tablet (81 mg total) by mouth every morning. Active metoprolol succinate ER 25 MG 24 hr tablet Take 1 tablet (25 mg total) by mouth every morning. 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, psychotic disturbance, mood disturbance, or anxiety 01/14/2022 Dyslipidemia 09/10/2017 Essential (primary) hypertension 07/01/2015 Lung nodule 07/01/2015 Osteopenia 07/01/2015 Varicose veins of both lower extremities 016 Vitamin D deficiency 07/01/2015 Resolved Problems Problem Noted Date Diagnosed Date Resolved Date Syncopal episodes 05/21/2021 Encounters Date Type Department Care Team Description 06/04/2024 Prep for Procedure [facility] [place] [address] [id number] Nelly Cristobal, TRANSIT DEPARTMENT CLERK 06/04/2024 Prep for Procedure [facility] [place] [address] [id number] Nelly Cristobal, TRANSIT DEPARTMENT CLERK 06/02/2024 Telephone [facility] [place] [address] [id number] Theodora Avelar, BOBBY Follow Up Call 05/10/2024 9:40 AM STEEL GRINDER - 05/10/2024 10:00 AM [facility] Surgery [facility] [place] [address] [id number] Izabela Navarro MD INJECTION EPIDURAL [id number] , L2-3 05/10/2024 8:51 AM STEEL GRINDER - 05/10/2024 10:00 AM [facility] Hospital Encounter [facility] [place] [address] [id number] Izabela Navarro MD Discharge Disposition: Home or Self Care (Routine Discharge) 05/10/2024 Travel 04/11/2024 12:10 PM STEEL GRINDER - 04/11/2024 11:59 PM STEEL GRINDER Hospital Encounter [facility] Interventional [place] [address] [id number] Nelly Cristobal CNP Discharge Disposition: Home or Self Care (Routine Discharge) 04/11/2024 Travel from Last 3 Months Family History [...] Sex Assigned at Female 04/11/2024 12:06 PM STEEL GRINDER Legal Sex Female 9:31 AM CDT Gender Identity Female 05/26/2021 6:32 AM CDT Sexual Orientation Straight 05/26/2021 6: 32 AM CDT Last Filed Vital Signs Vital Sign Reading Time Taken Comments Blood Pressure 129/75 05/10/2024 9:50 AM STEEL GRINDER Pulse 85 05/10/2024 9:04 AM STEEL GRINDER Temperature 36.4 C (97.5 F) 05/10/2024 9:04 AM STEEL GRINDER Respiratory Rate 18 05/10/2024 9:50 AM STEEL GRINDER Oxygen Saturation 97% 05/10/2024 9:50 AM STEEL GRINDER Inhaled Oxygen Concentration - - Weight 46 kg (101 lb 6.4 oz) 05/10/2024 9:04 AM STEEL GRINDER Height 165.1 cm (5' 5 ) 05/10/2024 9:04 AM STEEL GRINDER Body Mass Index 16.87 05/10/2024 9:04 AM STEEL GRINDER Plan of Treatment Upcoming Encounters Date Type Department Care Team (Latest Contact Info) Description 07/14/2024 11:40 AM CDT Hospital Encounter [facility] Interventional Pain [place] [address] [id number] Izabela Navarro MD Three [facility] [address] [place] [address] 07/14/2024 11:40 AM CDT - 07/14/2024 12:00 PM CDT Surgery [facility] Interventional Pain Management [facility] [place] [address] [id number] Izabela Navarro MD Three [facility] [address] [place] [address] BLOCK MEDIAL BRANCH LUMBAR-L3, 4, 5 02/05/2025 10:00 AM STEEL GRINDER Office Visit [facility] [address] [place] [address] Stuart Garrett MD Three [facility]. [address] [place] [address] Scheduled Procedures Name Priority Associated Diagnoses Date/Ti me BLOCK MEDIAL BRANCH LUMBAR Lumbar spondylosis 07/14/2024 11:40 AM CDT Health Maintenance Due Date Last Done Comments Hepatitis C 1963 Annual Medicare Wellness Visit 07/11/2011 RSV Immunization or 60+ Years (1 - 1-dose 75+ series) 2021 COVID-19 Vaccine ( - season) 2023 11/24/2022, 05/28/2020, 04/17/2020 DTaP, Tdap and Td Vaccines (3 - Td or Tdap) 09/04/2031 09/03/2021, 05/06/2018 Zoster Vaccines Completed 11/03/2017, 0506/2017, 08/27/2010 Pneumococcal Vaccine: 50+ Years Completed 10/01/2020, 03/28/2019 Dexa Scan (General) Completed 01/25/2023, 01/25/2023, 12/06/2020, Additional history exists Meningococcal B Vaccine Aged Out No l onger eligible based on patient's age to complete this topic Meningococcal Vaccine Aged Out No mary viry eligible based on patient's age to complete this topic RSV Immunizations Under 20 Months Aged Out No longer eligible based on patient's age to complete this topic Goals Goal Patient Goal Type Associated Problems Recent Progress Patient-Stated? Author Autogenerat ed Goal Care Plan Autogenerated Problem No Arlene Dove RN Procedures Procedure Name Priority Date/Time Associated Diagnosis Comments NJX AA&/STRD TFRML EPI LUMBAR/SACRAL 1 LEVEL 05/10/2024 9:41 AM STEEL GRINDER Lumbar radiculopathy XR [facility] Today 05/10/2024 9:07 AM STEEL GRINDER from Last 3 Months Results * XR PAIN [facility] C-ARM (05/10/2024 9:07 AM STEEL GRINDER) Narrative Radiology, Technologist - 05/10/2024 9:07 AM STEEL GRINDER This report does not contain a radiologist's interpretation. Please review associated procedure and/or operative report. Izabela Navarro MD GENERAL IMAGING Final Result from Last 3 Months Additional Health Concerns Active Problems Noted Date Diagnosed Date Autogenerated Problem 06/21/2024 Insurance ESSENCE ESSENCE Advance Directives Documents on File Type Date Recorded Patient Cath Lab Expl anation Advance Directives and Living Will 09/24/2023 11:36 AM 11/27/2020 PO[facility] Care Teams Supplier Quality Engineer Relationship Specialty Start Date End Date Beny Duff DO [address] [place] [id number] PCP - General FAMILY PRACTICE 04/12/24
--- OUTSIDE RECORDS SUMMARY | 2024-07-06 13:25 | XMS_ITS | Encounter Summary ---
Author Organization [facility] Address [address] [place] [id number] Care Team Providers Care Collating Machine Operator Name Role Phone Beau Clement MD Primary Care Provider [phone] Beny Duff DO Primary Care Provider [phone] Encounter Details Date Type Department Care Team (Late st Contact Info) Description 06/01/2022 Abstract [facility] [address] Majo Carter MA Social History Tobacco Use Types Packs/Day Years Used Date Smoking Tobacco: Never Smokeless Tobacco: Never Alcohol Use Standard Drinks/Week Comments Yes 0 (1 standard drink = 0.6 oz pur e alcohol) 2 glasses of wine /week Comments No Sex and Gender Information Value Date Recorded Sex Assigned at Female 04/11/2024 12:06 PM UPPER CUTTER MACHINE Legal Sex Female 9:31 AM CDT Gender [...] Description 07/14/2024 11:40 AM CDT Hospital Encounter [facility] [place] [address] [id number] Izabela Navarro MD Three [facility] [address] [place] [address] 07/14/2024 11:40 AM CDT - 07/14/2024 12:00 PM CDT Surgery [facility] [place] [facility] [place] [address] [id number] Izabela Navarro MD Three [facility] [address] [place] [address] BLOCK MEDIAL BRANCH LUMBAR-L3, 4, 5 02/05/2025 10:00 AM UPPER CUTTER MACHINE Office Visit [facility] [address] [place] [address] Stuart Garrett MD Three [facility]. [facility] [address] [place] [address] Scheduled Procedures Name Priority Associated Diagnoses Date/Ti me BLOCK MEDIAL BRANCH LUMBAR Lumbar spondylosis 07/14/2024 11:40 AM CDT documented as of this encounter Procedures Procedure Name Priority Date/Time Associated Diagnosis Comments NT-PRO BNP VISTA Routine 05/27/2022 PROTIME (OUTSIDE LAB) Routine 05/27/2022 CBC (OUTSIDE LAB) Routine 05/27/2022 COMPREHENSIVE METABOLIC PANEL Routine 05/27/2022 MAGNESIUM Routine 05/27/2022 documented in this encounter Results * Nt-Pro Bnp [place] (05/27/2022) Pathologist [facility] PRO-BRAIN NATRIURETIC PEPTIDE 380 05/27/2022 us Default History Genericprovider GENERAL SUPPLY & EQUIPMENT ORDERABLES Final Result * PROTIME (OUTSIDE LAB) (05/27/2022) Pathologist [facility] PROTIME 12.7 INR 1.0 05/27/2022 us Default History Genericprovider LAB-OUTSIDE/ABST RACTED Final Result * MAGNESIUM (05/27/2022) Pathologist [facility] MAGNESIUM 2.1 05/27/2022 us Default History Genericprovider LABORATORY Final Result * COMPREHENSIVE METABOLIC PANEL (05/27/2022) Pathologist [facility] SODIUM S/P/B 141 POTASSIUM S/P/B 4.3 CO2 [...] - Final * CBC (OUTSIDE LAB) (05/27/2022) Pathologist [facility] WBC 8.3 HGB 12.3 HCT 38.2 PLT 286 05/27/2022 us Default History Genericprovider LAB-OUTSIDE/ABST RACTED Final Result documented in this encounter Visit Diagnoses Not on filedocumented in this encounter Care Teams Collating Machine Operator Relationship Specialty Start Date End Date Beau Clement MD [address] [place] [address] PCP - General FAMILY PRACTICE 08/25/19 04/11/24 Beny Duff DO [address] [place] [id number] PCP - General FAMILY PRACTICE 04/12/24 documented as of this encounter
--- OUTSIDE RECORDS SUMMARY | 2024-07-06 13:25 | XMS_ITS | Clinical Summary ---
Author Organization [address] Address [address] [place] [phone] Care Team Providers Care Door Assembler Name Role Phone Beny Duff Primary Care Provider Allergies Active Allergy Reactions Criticality Noted Date [...] EVERY DAY AT NIGHT 90 tablet 3 4 Active metoprolol XL (TOPROL-XL) 25 mg extended release tablet TAKE 1 TABLET BY MOUTH EVERY DAY 90 tablet 2 4 Active atorvastatin (LIPITOR) 40 mg tablet TAKE 1 TABLET BY MOUTH EVERY DAY 90 tablet 3 4 Active memantine (NAMENDA) 10 mg tablet TAKE 1 TABLET BY MOUTH TWICE A DAY 180 tablet 3 4 Active multivitamin tabletIndicatio ns:Vitamin Deficiency Prevention Take 1 tablet by mouth Active gabapentin (NEURONTIN) 100 mg capsule Take 1 capsule (100 mg total) by mouth 2 (two) times a day 100 capsule 1 5 Active ibandronate (BONIVA) 150 mg tabletIndicatio ns:Osteopenia of both hips Take in AM with glass of water prior to food, don't lie down for 30 minutes. 3 tablet 1 5 Active ibandronate (BONIVA) 150 mg tabletIndicatio ns:Osteopenia of both hips TAKE 1 TABLET EVERY 30 DAYS TAKE IN AM WITH GLASS OF WATER PRIOR TO FOOD, DON'T LIE DOWN X30 MINUTES 3 tablet 1 4 06/30/19 25 Discontinu ed(Reorder ) Active Problems Problem Noted Date Diagnosed Date Age-related osteoporosis wit hout current pathological fracture 04/06/2024 Overview (04/06/2024): Chronic condition is stable on Boniva No fractures She is a fall risk Dexa January 2023 Aortic atherosclerosis 04/06/2024 Overview (04/06/2024): Noted on CT February 2022 No concerns or symptoms Continue daily statin SVT (supraventricular tachycardia) 04/06/2024 Overview (04/06/2024): H/o SVT - stable on Metoprolol Continue with Cardiology Degeneration of intervertebr al disc of lumbar region with discogenic back pain 04/06/2024 Overview (04/06/2024): Chronic back pain with deg changes and stenosis Following with Pain [facility] - Dr. Navarro Continue Gabapentin Spinal stenosis of lumbar re gion without neurogenic claudication 04/06/2024 Overview (04/06/2024): Chronic back pain with deg changes and stenosis Following with Pain [facility] - Dr. 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 Intraocular lens (IOL) clear both eyes (OU). Assessment & Plan (07/30/2022 1:17 PM CDT): [...] 08/15/2021 Overview (05/21/2022): Had CE/IOL OD at [facility]. Will obtain IOL records. 12/03/2021- phaco/ intraocular lens (IOL) left eye (OS)- ABarsam Assessment & Plan (05/07/2024 1:17 PM AGENCY SALES MANAGEMENT ASSISTANT): Patient was educated on the intraocular lens (IOL) status. Follow. Assessment & Plan (07/30/2022 1:19 PM CDT): Had CE/IOL OD at [facility]. Will obtain IOL records. 12/03/2021- phaco/ intraocular lens (IOL) left eye (OS)- ABarsam Will to change MRx after YAG cap right eye (OD). Assessment & Plan (05/21/2022 12:10 PM CDT): Had CE/IOL OD at [facility]. Will obtain IOL records. 12/03/2021- phaco/ intraocular lens (IOL) left eye (OS)- ABarsam BCVA is not much worse than postop. MRx update never given. Told by optom needs YAG cap. Assessment & Plan (10/01/2021 9:50 AM CDT): Had CE/IOL OD at [facility]. Will obtain IOL records. Assessment & Plan (08/15/2021 2:49 PM CDT): Stable, observe. Updated SRx given today. Posterior vitreous detachment of right eye 08/15 Assessment & Plan (08/15/2021 2:53 PM CDT): Discussed retinal precautions - pt to call immediately with new or worsening floaters/flashes/curtain in vision. Syncopal episodes 09/27/2019 Dyslipidemia 09/10/2017 Overview (04/06/2024): Chronic, stable condition on Lipitor Continue same medications Essential (primary) hypertension 07/01/2015 Overview (04/06/2024): Chronic, stable condition on Metoprolol Continue same medications Vitamin D deficiency 07/01/2015 Overview (04/06/2024): Chronic, stable condition on daily replacement Continue same medications Lung nodule 07/01/2015 Resolved Problems Problem Noted [...] optic nerve (ON) cupping Reassurance RTC prn Osteopenia 07/01/2015 04/06/2024 Varicose veins of both lower extremities 07/01/2015 04/06/2024 Encounters Date Type Department Care Team Description 07/06/2024 Nurse Triage [facility] [address] [place] [address] [place] [phone] Beny Duff DO 06/12/2024 7:00 AM CDT Office Visit [facility] [address] [place] [address] [place] [phone] Beny Duff DO Localized edema (Primary Dx); Essential (primary) hypertension; Dyslipidemia; Late onset Alzheimer's dementia without behavioral disturbance, psychotic disturbance, mood disturbance, or anxiety, unspecified dementia severity (HCC) 04/27/2024 10:15 AM AGENCY SALES MANAGEMENT ASSISTANT Office Visit [facility] [address] [facility] 6th Floor, [address] [place] [facility] [place] [address] Laila Paniagua, OD PCO (posterior capsular opacification), bilateral (Primary Dx); Routine physical examination; Pseudophakia of both eyes 04/10/2024 Telephone [facility] Primary [facility] [address] [facility] [address] [place] [address] Beny Duff, Referral Request from Last 3 Months Immunizations Immunization Administration Dates Next Due COVID-19 mRNA ([employer]) 0.3 m L (30 mcg) vaccine (12 [...] of TIA occurance Arthritis 10 years Cancer (HCC) skin cancer on nose Cataract one taken out Family History Medical History Relation Name Comments Heart attack Father Lucio Aruna Arthritis Mother Elizabeth Aruna Asthma Mother Elizabeth Aruna Heart attack Mother Elizabeth Aruna Diabetes Son Jorge Luis Esquivel Anesthesia problems Neg Hx Glaucoma Neg Hx Macular degeneration Neg Hx Relation Name Status Comments Father Lucio Aruna Mother Elizabeth Aruna Son Jorge Luis Esquivel Alive Social History Tobacco Use Types Packs/Day Years Used Date Smoking Tobacco: Never Cigarettes Smokeless Tobacco: Never Tobacco Cessation:Counseling Given: Not [...] on file Legal Sex Female 8:34 AM AGENCY SALES MANAGEMENT ASSISTANT Gender Identity Female 08/22/2019 6:09 AM CDT Sexual Orientation Straight 08/22/2019 6: 09 AM CDT Obstetrics History Para Term AB IAB SAB Ectopic Multiple Livin g Live Births 2 2 2 Date Outcome GA Total Labor Labor/2nd/3rd Weight Sex Type Anes PTL Erma A1 A5 Name Clin Term Term Last Filed Vital Signs Vital Sign Reading Time Taken Comments Blood Pressure 120/78 06/12/2024 6:55 AM CDT Pulse 60 06/12/2024 6:55 AM CDT Temperature 36.4 C (97.6 F) 06/12/2024 6:55 AM CDT Respiratory Rate 16 06/12/2024 6:55 AM CDT Oxygen Saturation 95% 06/12/2024 6:55 AM CDT Inhaled Oxygen Concentration - - Weight 45.8 kg (101 lb) 06/12/2024 6:55 AM CDT Height 156.2 cm (5' 1.5 ) 06/12/2024 6:55 AM CDT Body Mass Index 18.77 06/12/2024 6:55 AM CDT Plan of Treatment Health Maintenance Due Date Last Done Comments Hepatitis B Screening 1963 Covid-19 Vaccine (2023-04 5 season) 2024 11/12/2023, 11/24/2022, 12/07/2021, Additional history exists Osteoporosis Screening-Bone Density Scan 01/25/2025 01/25/2023, 12/06/2020, 07/20/2017, Additional history exists Fall Risk Assessment 04/06/2025 04/06/2024, 11/16/2023, 11/30/2022, Additional history exists Well Visit 65+ 04/06/2025 04/06/2024, 11/06, 11/30/2022, Additional history exists Depression Screening 06/12/2025 06/12/2024, 04/06/2024, 11/16/2023, Additional history exists DTaP/Tdap/Td Vaccine (3 - [...] Discontinued Pneumococcal vaccine 65+ Completed 10/01/2020, 03/09 Influenza Vaccine Completed 11/12/2023, , 12/07/2021, Additional history exists Breast Cancer Screening-Mammogram Discontinued 02/01/2024, 12/06/2020, 11/23/2018, Additional history exists Medical Devices Implanted Type Area Ceramic Engineer Device Identifier Shelf Expiration Date Model / Serial / Lot [employer] Lens Iol Posterior Biconvex Optic Single Piece Envista 6.0x12.5 +18.5d Hydrophobic Acrylic [id number] - [id number] - [id number] Implanted:Qty: 1 on 12/02/2021 by Addy Nguyen MD at [facility] Surgery [place] Left: Eye [employer] [id number] 10/06/2023 [id number] / [id number] / Procedures Procedure Name Priority Date/Time Associated Diagnosis Comments SCREENING MAMMOGRAM BILATERAL W HUSSAIN Schedule Routine, Read Routine (OP Routine) 02/01/2024 1:53 PM AGENCY SALES MANAGEMENT ASSISTANT Screening mammogram, encounter for DEXA AXIAL SKELETON BONE DENSITY 1 OR MORE SITES Schedule Routine, Read Routine (OP Routine) 01/25/2023 7:09 AM AGENCY SALES MANAGEMENT ASSISTANT Osteopenia of multiple sites STOOL DNA COLOGUARD Routine 09/12/2020 8:15 AM CDT Colon cancer screening HEPATITIS C ANTIBODY Routine 06/24/2015 9:37 AM CDT COLONOSCOPY Routine 06/17/2011 from Last 3 Months or Most Recently Relevant to Health Maintenance Results * Screening Mammogram Bilateral W Hussain (02/01/2024 1:53 PM AGENCY SALES MANAGEMENT ASSISTANT) Anatomical Region Laterality Modality Breast Bilateral Mammography Impressions 02/01/2024 4:45 PM AGENCY SALES MANAGEMENT ASSISTANT BI-RADS ATLAS category (overall): 1 - Negative There is no mammographic evidence of malignancy. A 1 year screening mammogram is recommended. The patient has been or will be contacted. We recommend annual screening mammography for women at average risk of breast cancer beginning at age 40, based on guidelines of the [place] [employer] (ACR Practice Parameter for the Performance of Screening and Diagnostic Mammography) and [place] [employer]. For women with and elevated risk of breast cancer, please refer to the ACR Practice Parameter for specific screening recommendations. The patient will be entered into a reminder system with a target due date of 1 year for her next screening exam. Narrative 02/01/2024 4:45 PM AGENCY SALES MANAGEMENT ASSISTANT Screening Mammogram Bilateral W Hussain: 02/01/24 The study was acquired using full field digital technology and interpreted from soft copy. 2D digital mammographic views, as well as 3D digital tomosynthesis were performed in the CC and MLO projections. This study was resulted using Computer-Aided Detection (CAD). CLINICAL: Screening mammogram, encounter for. Medical history includes arthritis, hypertension, cancer, and developmental delay. No known family history of breast cancer. COMPARISONS: 12/06/2020 Screening Mammogram Bilateral W Hussain 11/23/2018 Screening Mammogram 2D Bilateral 03/18/2016 Screening Mammogram Bilateral W Hussain BREAST TISSUE: There are scattered areas of fibroglandular density. FINDINGS: No suspicious masses, suspicious calcifications, or other suspicious findings are seen within either breast. There has been no suspicious change. us Self Screening Mammogram IMG MAMMO PROCEDURES Fi nal Result * Dexa Axial Skeleton Bone Density 1 or 2 Site (01/25/2023 7:09 AM AGENCY SALES MANAGEMENT ASSISTANT) Anatomical Region Laterality Modality Body N/A Mammography 01/25/2023 9:51 AM AGENCY SALES MANAGEMENT ASSISTANT Narrative 01/25/2023 9:52 AM AGENCY SALES MANAGEMENT ASSISTANT EXAM DESCRIPTION: DEXA AXIAL SKELETON BONE DENSITY 1 OR MORE SITES REASON FOR STUDY: 77 y/o year old F with given history of: Postmenopausal status. Patient takes calcium. Ceramic Engineer/Model: [employer] A (S/N [id number]) CLINICAL INFORMATION: Current height: 62 inches Maximum [...] major osteoporosis related fracture and hip fracture. According to the National Osteoporosis Foundation guidelines, postmenopausal [...] Valencia Ritter M.D. TW: TW Report ID: [id number] Reading Location: [id number] Procedure Note Valencia Ritter MD - 01/25/2023 EXAM DESCRIPTION: DEXA AXIAL SKELETON BONE DENSITY 1 OR MORE SITES REASON FOR STUDY: 77 y/o year old F with given history of:Postmenopausal status. Patient takes calcium. Ceramic Engineer/Model: [employer] A (S/N [id number]) CLINICAL INFORMATION: Current height: 62 inches Maximum [...] Valencia Ritter M.D. TW: ISIS Report ID: [id number] Reading Location: [id number] Beau Clement MD Freddy DXA PROCEDURES F inal Result * Stool DNA - Cologuard (09/12/2020 8:15 AM CDT) [facility] Stool DNA - Cologuard Negative Negative drop.io (CLIA #:[id number]) Comment: NEGATIVE TEST RESULT. A negative Cologuard result indicates a low likelihood that a colorectal cancer (CRC) or advanced adenoma (adenomatous polyps with more advanced pre-malignant features) is present. The chance that a person with a negative Cologuard test has a colorectal cancer is less than 1 in 1500 (negative predictive value >99.9%) or has an advanced adenoma is less than 5.3% (negative predictive value 94.7%). These data are based on a prospective cross-sectional study of 10,000 individuals at average risk for colorectal cancer who were screened with both Cologuard and colonoscopy. (Manuel Shankar et al, N Engl J Med 2014;370(14):4893-3236) The normal value (reference range) for this assay is negative. COLOGUARD RE-SCREENING RECOMMENDATION: Periodic colorectal cancer screening is an important part of preventive healthcare for asymptomatic individuals at average risk for colorectal cancer. Following a negative Cologuard result, the [place] [employer] Society and U.S. Multi-Society Task Force screening guidelines recommend a Cologuard re-screening interval of 3 years. References: [place] [employer] Guideline for Colorectal Cancer Screening: https://www.cancer.org/cancer/ubosh-azcosv-cldbqk/shquiufsm-rnbituasj-kvglspk/ac s-rec ommendations.html.; John TERRELL, Ezequiel MARTINEZ, Arlette RodriguezK, Colorectal Cancer Screening: Recommendations for Physicians and Patients from the U.S. Multi-Society Task Force on Colorectal Cancer Screening , Am J Gastroenterology 2017; 112:6576-1910. TEST DESCRIPTION: Composite algorithmic analysis of stool DNA-biomarkers with hemoglobin immunoassay. Quantitative values of individual biomarkers are not [...] Shankar et al, N Engl J Med 2014;370(14):9580-4105.) Cologuard may produce a false negative or false positive result (no colorectal cancer or precancerous polyp present at colonoscopy follow up). A negative Cologuard test result does not guarantee the absence of CRC or advanced adenoma (pre-cancer). The current Cologuard screening interval is every 3 years. ([place] [employer] Society and U.S. Multi-Society Task Force). Cologuard performance data in a 10,000 patient pivotal study using colonoscopy as the reference method can be accessed at the following location: www.TargAnox/results. Additional description of the Cologuard test process, warnings and precautions can be found at www.Lamellar Biomedicaloguard.com. Stool 09/12/2020 8:15 AM CDT 09/13/2020 2:57 PM CDT Beau Clement MD LAB BODY FLUIDS AND STOOLS ORDERABLES Final Result [employer] (CLIA #:[id number]) [place] [address] * Hepatitis C antibody (06/24/2015 9:37 AM CDT) Hep C Ab NONREACT NONREACTIVE 06/24/2015 2:26 PM CDT FORMERLY NAMED [facility] HISTORICAL RESULTS Comment: [employer] using PEPE (chemiluminescent immunoassay) technology. NONREACTIVE: Antibodies to Hepatitis C not detected. This does not exclude early acute Hepatitis C infection, possibility of exposure to Hepatitis C, antibodies below detection limit, or to lack of antibody reactivity to the antigen used in this assay. EQUIVOCAL: Antibodies to Hepatitis C may or may not be present. Sample to be confirmed by real-time PCR method. REACTIVE: Antibodies to Hepatitis C detected. 06/24/2015 9:37 AM CDT 06/24/2015 9:37 AM CDT Narrative ESTELA SHRESTHA HISTORICAL RESULTS - 06/24/2015 2:26 PM CDT PT FAST 12HR Katie Brunner MD LAB MICROBIOLOGY - GEN ERAL ORDERABLES Final Result ESTEL[facility] SHRESTHA HISTORICAL RESULTS * Colonoscopy (06/17/2011) Anatomical Region Laterality Modality Other Historical Provider ENDOSCOPY PROCEDURES Blanca l Result from Last 3 Months or Most Recently Relevant to Health Maintenance [place] [address] [address] [address] [facility]ALTHCARE [facility] HEALTHCARE [facility]CARE Advance Directives For more information, please contact: [phone] Documents on File Type Date Recorded Patient Ear Nose Throat Surgeon Expl anation ADVANCE DIRECTIVE 09/24/2023 3:22 PM POA - Medical Power of Flower Shop Laborer/Designer 04/02/2023 1:15 PM ADVANCE DIRECTIVE 01/22/2022 8:22 AM Lor r of Flower Shop Laborer/Designer-Medical Care Teams Door Assembler Relationship Specialty Start Date End Date Beny Duff DO [address] [place] [id number] PCP - General Family Medicine 04/06/24
--- OUTSIDE RECORDS SUMMARY | 2024-07-06 13:25 | XMS_ITS | Encounter Summary ---
Author Organization [facility] Address [address] [place] [address] Care Team Providers Care Oncology Physician Assistant Name Role Phone Beau Clement MD Primary Care Provider [phone] Beny Duff DO Primary Care Provider Encounter Details Date Type Department Care Team (Late st Contact Info) Description 12/11/2020 Prep for Procedure [facility] [place] [address] [id number] Maribel Qureshi, MAKAYLA [address] [place] [address] Social History Tobacco Use Types Packs/Day Years Used Date Smoking Tobacco: Never Smokeless Tobacco: Never Alcohol Use Standard Drinks/Week Comments Yes 0 (1 standard drink = 0.6 oz pur e alcohol) 2 glasses of wine /week Comments No Sex and Gender Information Value Date Recorded Sex Assigned at Female 04/11/2024 12:06 PM SENIOR ENLISTED ADVISOR Legal Sex Female 9:31 AM CDT Gender Identity Female 05/26/2021 6:32 AM CDT Sexual Orientation Straight 05/26/2021 6: 32 AM CDT COVID-19 Exposure Response Date Recorded In the last month, have you been in contact with someone who was confirmed or suspected to have Coronavirus / COVID-19? No / Unsure 12/11/2020 4:32 AM CDT documented as of this encounter Functional Status * Calculated C-SSRS Risk Score (Lifetime/Recent) Answer Date of Assessment Author Status No Risk Indicated 12/11/2020 8:53 AM CDT Inna Bergman RN Active * [place] Suicide Severity Rating Scale (Screener/Recent Self-Report) Question Answer Date of Assessment Author Status 1. Wish to be (Past 1 Month) No 12/11/2020 8:53 AM CDT Steffanie Bergman RN Ac tive 2. Non-Specific Active Suicidal Thoughts (Past 1 Month) No 12/11/2020 8:53 AM CDT Steffanie Bergman RN Ac tive 6. Suicidal Behavior (Lifetime) No 12/11/2020 8:53 AM CDT Steffanie Bergman RN Ac tive documented as of this encounter Plan of Treatment Upcoming Encounters Date Type Department Care Team (Latest Contact Info) Description 07/14/2024 11:40 AM CDT Hospital Encounter [facility] [place] [address] [id number] Izabela Navarro MD [address] [address] 07/14/2024 11:40 AM CDT - 07/14/2024 12:00 PM CDT Surgery [facility] [place] [address] [id number] Izabela Navarro MD [address] [address] BLOCK MEDIAL BRANCH LUMBAR-L3, 4, 5 02/05/2025 10:00 AM SENIOR ENLISTED ADVISOR Office Visit [facility]am [facility] n [facility], [address] [place] [address] Stuart Garrett MD [facility]. [address] [place] [address] Scheduled Procedures Name Priority Associated Diagnoses Date/Ti me BLOCK MEDIAL BRANCH LUMBAR Lumbar spondylosis 07/14/2024 11:40 AM CDT documented as of this encounter Visit Diagnoses Not on filedocumented in this encounter Care Teams Oncology Physician Assistant Relationship Specialty Start Date End Date Beau Clement MD [address] [place] [address] PCP - General FAMILY PRACTICE 08/25/19 04/11/24 Beny Duff DO [address] [place] [id number] PCP - General FAMILY PRACTICE 04/12/24 documented as of this encounter
--- OUTSIDE RECORDS SUMMARY | 2024-07-06 13:25 | XMS_ITS | Continuity of Care Document ---
Author Organization [facility] Address [address] [place] [address] [address] [place] [address] Phone Care Team Providers Care Conditioner Tender Name Role Phone Susanne Montgomery Unavailable Unavailable Advance Directives Directive Yes / No Effective Date File Name No Information Encounters Encounter Description Practice Location Reason(s) For Visit Diagnoses Date Provider Providers Copied on Encounter [facility], [address] [place] [address] [address], [place], [place], [id number], [place] tel:[phone] [facility] No Information Sep-0 1-200 6 Valentina Skinner. [address] , [address], [place], [address], [place]. tel:[phone] Family History Family Member Type Diagnosis Age At Onset No Information Payers Payer name Insurance type Covered green party ID Authoriza tion(s) No Information Social History [...]
--- OUTSIDE RECORDS SUMMARY | 2024-07-06 13:25 | XMS_ITS | Referral Summary ---
Author Organization [address] Address [address] [place] [phone] Care Team Providers Care Pharmacy Salesperson Name Role Phone Beny Duff DO Primary Care Provider Encounters Date Type Department Care Team Description 07/06/2024 Nurse Triage [facility] [address] [place] [address] [place] [phone] Beny Duff DO 06/12/2024 7:00 AM CDT Office Visit [facility] [address] [place] [address] [place] [phone] Beny Duff DO Localized edema (Primary Dx); Essential (primary) hypertension; Dyslipidemia; Late onset Alzheimer's dementia without behavioral disturbance, psychotic disturbance, mood disturbance, or anxiety, unspecified dementia severity (HCC) 04/27/2024 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 Office Visit [facility] Op[facility] 6th Floor, [address] [facility] [place] [address] Laila Paniagua, JADYN PCO (posterior capsular opacification), bilateral (Primary Dx); Routine physical examination; Pseudophakia of both eyes 04/10/2024 Telephone [facility] [address] [place] [address] [place] [phone] Beny Duff DO Referral Request from Last 3 Months Allergies Active Allergy [...] deg changes and stenosis Following with Pain Mgmt - Dr. Navarro Continue Gabapentin Spinal stenosis of lumbar re gion without neurogenic claudication 04/06/2024 Overview (04/06/2024): Chronic back pain with deg changes and stenosis Following with Pain Mgmt - Dr. 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): Doing well status post (s/p) YAG both [...] (08/16/2023): Added automatically from request for surgery [id number] Late onset Alzheimer's demen tia without behavioral disturbance, psychotic disturbance, mood disturbance, or anxiety 01/14/2022 Overview (04/06/2024): Chronic condition followed by Neurology She is on Namenda and Aricept Continued progression Continue same medications Retinal drusen of both eyes 08/15/2021 Assessment & Plan (05/07/2024 1:17 PM SCHOOL BUS DRIVER/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 Will obtain IOL records. 12/03/2021- phaco/ intraocular lens (IOL) left eye (OS)- ABarsam Assessment & Plan (05/07/2024 1:17 PM SCHOOL BUS DRIVER/MECHANIC): Patient was educated on the intraocular lens (IOL) status. Follow. Assessment & Plan (07/30/2022 1:19 PM CDT): Had CE/IOL OD at [facility]. Will obtain IOL records. 12/03/2021- phaco/ intraocular lens (IOL) left eye (OS)- ABarsam Will to change MRx after YAG cap right eye (OD). Assessment & Plan (05/21/2022 12:10 PM CDT): Had CE/IOL OD at [facility]. Will obtain IOL records. 12/03/2021- phaco/ intraocular lens (IOL) left eye (OS)- ABarsam BCVA is not much worse than postop. MRx update never given. Told by optom needs YAG cap. Assessment & Plan (10/01/2021 9:50 AM CDT): Had CE/IOL OD at [facility]. Will obtain IOL records. 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 Gender Identity Female 08/22/2019 6:09 AM CDT [...] 06/12/2024 6:55 AM CDT Plan of Treatment Not on file Medical Devices Implanted Type Area Petroleum Laboratory Technician Device Identifier Shelf Expiration Date Model / Serial / Lot [employer] Lens Iol Posterior Biconvex Optic Single Piece Envista 6.0x12.5 +18.5d Hydrophobic Acrylic [id number] - [id number] - [id number] Implanted:Qty: 1 on 12/02/2021 by Addy Nguyen MD at [facility] Left: Eye [employer] [id number] 10/06/2023 [id number] / [id number] / Procedures Procedure Name Priority Date/Time Associated Diagnosis Comments SCREENING MAMMOGRAM BILATERAL W HUSSAIN Schedule Routine, Read Routine (OP Routine) 02/01/2024 1:53 PM SCHOOL BUS DRIVER/MECHANIC Screening mammogram, encounter for DEXA AXIAL SKELETON BONE DENSITY 1 OR MORE SITES Schedule Routine, Read Routine (OP Routine) 01/25/2023 7:09 AM SCHOOL BUS DRIVER/MECHANIC Osteopenia of multiple sites STOOL DNA COLOGUARD Routine 09/12/2020 8:15 AM CDT Colon cancer screening HEPATITIS C ANTIBODY Routine 06/24/2015 9:37 AM CDT COLONOSCOPY Routine 06/17/2011 from Last 3 Months or Most Recently Relevant to Health Maintenance Results * Screening Mammogram Bilateral W Hussain (02/01/2024 1:53 PM SCHOOL BUS DRIVER/MECHANIC) Anatomical Region Laterality Modality Breast Bilateral Mammography Impressions 02/01/2024 4:45 PM SCHOOL BUS DRIVER/MECHANIC BI-RADS ATLAS category (overall): 1 - Negative There is no mammographic evidence of malignancy. A 1 year screening mammogram is recommended. The patient has been or will be contacted. We recommend annual screening mammography for women at average risk of breast cancer beginning at age 40, based on guidelines of the [place] [employer] (ACR Practice Parameter for the Performance of Screening and Diagnostic Mammography) and [place] [employer] Obstetricians [employer] Gynecologists. For women with and elevated risk of breast cancer, please refer to the ACR Practice Parameter for specific screening recommendations. The patient will be entered into a reminder system with a target due date of 1 year for her next screening exam. Narrative 02/01/2024 4:45 PM SCHOOL BUS DRIVER/MECHANIC Screening Mammogram Bilateral W Hussain: 02/01/24 The [...] 1 or 2 Site (01/25/2023 7:09 AM SCHOOL BUS DRIVER/MECHANIC) Anatomical Region Laterality Modality Body N/A Mammography 01/25/2023 9:51 AM SCHOOL BUS DRIVER/MECHANIC Narrative 01/25/2023 9:52 AM SCHOOL BUS DRIVER/MECHANIC EXAM DESCRIPTION: DEXA AXIAL SKELETON BONE DENSITY 1 OR MORE SITES REASON FOR STUDY: 77 y/o year old F with given history of: Postmenopausal status. Patient takes calcium. 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 TW: TW Report ID: [id number] Reading Location: [id number] Procedure Note Valencia Ritter MD - 01/25/2023 EXAM DESCRIPTION: DEXA AXIAL SKELETON BONE DENSITY 1 OR MORE SITES REASON FOR STUDY: 77 y/o year old F with given history of:Postmenopausal status. Patient takes calcium. Petroleum Laboratory Technician/Model: HoloUtterz A (S/N [id number]) CLINICAL INFORMATION: Current height: 62 inches Maximum [...] Valencia Ritter M.D. TW: TW Report ID: [id number] Reading Location: [place] [address] Beau Clement MD IMFreddy DXA PROCEDURES F inal Result * Stool DNA - Cologuard (09/12/2020 8:15 AM CDT) Pathologist [facility] Stool DNA - Cologuard Negative Negative [facility] (CLIA #:[id number]) Comment: NEGATIVE TEST RESULT. A negative Cologuard [...] Shankar et al, N Engl J Med 2014;370(14):1643-8850) The normal value (reference range) for this assay is negative. COLOGUARD RE-SCREENING RECOMMENDATION: Periodic colorectal cancer screening is an important part of preventive healthcare for asymptomatic individuals at average risk for colorectal cancer. Following a negative Cologuard result, the [place] Cancer Society and U.S. Multi-Society Task Force screening guidelines recommend a Cologuard re-screening interval of 3 years. References: [place] Cancer Society Guideline for Colorectal Cancer Screening: https://www.cancer.org/cancer/qplhf-oehniv-qexdyk/huykgsjxa-yjwivtqym-sykkaki/ac s-rec ommendations.html.; John TERRELL, Ezequiel MARTINEZ, Arlette JUNIOR, Colorectal Cancer Screening: Recommendations for Physicians and Patients from the U.S. Multi-Society Task Force on Colorectal Cancer Screening , Am J Gastroenterology 2017; 112:6570-4652. TEST DESCRIPTION: Composite algorithmic analysis of stool [...] screened with both Cologuard and colonoscopy. (Manuel Waldron. et al, N Engl J Med 2014;370(14):5906-4397.) Cologuard may produce a false negative or false positive result (no colorectal cancer or precancerous polyp present at colonoscopy follow up). A negative Cologuard test result does not guarantee the absence of CRC or advanced adenoma (pre-cancer). The current Cologuard screening interval is every 3 years. ([place] Cancer Society and U.S. Multi-Society Task Force). Cologuard performance data in a 10,000 patient pivotal study using colonoscopy as the reference method can be accessed at the following location: www.[employer]/results. Additional description of the Cologuard test process, warnings and precautions can be found at www.cologuard.com. Stool 09/12/2020 8:15 AM CDT 09/13/2020 2:57 PM CDT Beau Clement MD LAB BODY FLUIDS AND STOOLS ORDERABLES Final Result Performing Organization Address City/[facility]/ZIP Co de Phone Number [employer] (CLIA #:[id number]) [address] [place] [address] * Hepatitis C antibody (06/24/2015 9:37 AM CDT) Hep C Ab NONREACT NONREACTIVE Comment: [employer] using PEPE (chemiluminescent immunoassay) technology. NONREACTIVE: Antibodies [...] AM CDT 06/24/2015 9:37 AM CDT Narrative [facility] HISTORICAL RESULTS - 06/24/2015 2:26 PM CDT PT FAST 12HR Katie Brunner MD LAB MICROBIOLOGY - GEN ERAL ORDERABLES Final Result Performing Organization Address [facility] Co de Phone Number [facility] HISTORICAL RESULTS * Colonoscopy (06/17/2011) Anatomical Region Laterality Modality Other Historical Provider ENDOSCOPY PROCEDURES Blanca hutson Result from Last 3 Months or Most Recently Relevant to Health Maintenance Insurance [facility] [place] [place] [address] [place] [address] HEALTHCARE Advance Directives For more information, please contact: [phone] Documents on File Type Date Recorded 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
[2024-07-06 13:27] LABS: Basophils Absolute Auto 0.1 K/mm3 (0.0-0.1); Basophils Percent Auto 1.1 % (0.2-1.2); Eosinophils Absolute Auto 0.2 K/mm3 (0-0.3); Eosinophils Percent Auto 3.6 % (0-4.4); Hematocrit 44.8 % (37.0-47.0); Hemoglobin 13.7 g/dL (12.0-15.0); Immature Granulocyte Absolute 0.02 K/mm3 (0.00-0.031); Immature Granulocyte Percent A 0.3 % (0-0.5); Lymphocytes Absolute Auto 2.01 K/mm3 (0.9-3.2); Lymphocytes Percent Auto 31.7 % (18.3-44.2); Mean Corpuscular HGB Conc 30.6 g/dl (32-36); Mean Corpuscular Hemoglobin 30.9 pg (26-34); Mean Corpuscular Volume 101.1 fl (80-100); Mean Platelet Volume 8.9 fl (7.4-10.4); Monocytes Absolute Auto 0.6 K/mm3 (0.1-0.6); Monocytes Percent Auto 9.3 % (2.6-8.5); Neutrophils Absolute Auto 3.4 K/mm3 (1.3-6.7); Platelet Count Result 372 k/mm3 (150-375); Red Blood Count 4.43 M/mm3 (4.2-5.4); Red Cell Distribution Width 14.1 % (11.5-14.5); White Blood Count 6.4 K/mm3 (4.5-10.0)
[2024-07-06 13:37] LABS: INR 0.9; Prothrombin Time 12.9 Seconds (11.1-14.7)
[2024-07-06 13:39] LABS: Partial Thromboplastin Time 24.6 Seconds (22.3-36.8)
[2024-07-06 13:41] LABS: Alanine Aminotransferase 37 U/L (6-35); Anion Gap 7 mmol/L (4-12); Blood Urea Nitrogen 11 mg/dL (7-17); Calcium 9.8 mg/dL (8.4-10.2); Carbon Dioxide 31 mmol/L (22-30); Chloride 102 mmol/L (98-107); Estimated CRCL calculation 39 ml/min; Estimated Glomerular Filt Rate > 60; Glucose 101 mg/dL (65-110); Sodium 140 mmol/L (137-145)
[2024-07-06 13:48] LABS: Albumin Level 4.4 g/dL (3.5-5.1); Alkaline Phosphatase 73 U/L (38-126); Aspartate Amino Transferase 50 U/L (14-36); Potassium 4.4 mmol/L (3.4-5.0)
[2024-07-06] MEDS: SODIUM CHLORIDE 0.9% IV 500 ML 999 ML IV CONT (14:19)
[2024-07-06] MEDS: ONDANSETRON INJ 4 MG/2 ML VIAL IV PUSH (14:19)
[2024-07-06 14:40] LABS: Add Urine Microscopic? YES; Appearance Urine Clear (Clear); Bacteria Urine None Seen /hpf; Bilirubin Urine Negative (Negative); Blood Urine Negative (Negative); Color Urine Yellow (Yellow); Glucose Urine UA Negative (Negative); Ketones Urine Negative (Negative); Leukocyte Esterase Ur 1+ LEU/UL (Negative); Mucus Urine Present /lpf; Need Manual Microscopic Reviewed; Nitrate Urine Negative (Negative); Non Pathogenic Casts 0-2; Protein Urine Negative (Negative); RBC Urine 0-2 /hpf (0-2); Specific Grav Ur 1.009 (1.001-1.035); Squamous Epithelial Cell Urine None Seen /hpf (Few); Urobilinogen Urine 0.2 mg/dL (<2.0); WBC Urine 0-5 /hpf (0-3); pH Urine 7.5 (5.0-9.0)
[2024-07-06] MEDS: hydrALAZINE HCL 20 MG/ML VIAL 10 MG IV PUSH (14:50)
[2024-07-06 15:03] LABS: Influenza A QL RT-PCR Negative (Negative); Influenza B QL RT-PCR Negative (Negative); RSV RNA, RT-PCR Negative (Negative); SARS-CoV-2 RNA PCR Negative (Negative)
[2024-07-06 15:35] VITALS: BP 127/67; PULSE 62; RESP 16; O2SAT 100
== END 2024-07-06 15:35 | disposition home or self-care (01) ==
PROVIDERS: Emergency Provider Emergency Medicine; PCP Family Medicine
DX: R42 Dizziness and giddiness (principal); I10 Essential (primary) hypertension; Z20.822 Contact with and (suspected) exposure to COVID-19; F03.90 Unspecified dementia, unspecified severity, without behavioral disturbance, psychotic disturbance, mood disturbance, and anxiety; Z79.899 Other long term (current) drug therapy
CPT/HCPCS: 36415; 70450; 71046; 80053; 81001; 83605; 85025; 85610; 85730; 87086; 87637; 96374; 96375; 99284; J0360; J2405; J7040